=== PATIENT | male | born 1945 | race Caucasian/White ===

== ENCOUNTER 2022-11-05 10:20 | Observation (INO) | payer MEDICARE, OTHER, SELFPAY ==
[2022-11-05] VITALS (9 sets, daily range): BP systolic 100–118; BP diastolic 54–70; PULSE 68–90; RESP 15–20; TEMP 36.5–36.7; O2SAT 94–99; BMI 32.7
--- NOTE | ~2022-11-05 | XR_ITS ---
EXAMINATION: XR chest 1V portable INDICATION: Weakness and shortness of breath TECHNIQUE: Portable AP chest at 1123 hours COMPARISON: None available FINDINGS: There are airspace opacities of the lung bases and left midlung zone. No pleural effusion o r pneumothorax. The cardiomediastinal silhouette is normal. IMPRESSION: 1. Airspace opacities of the lung bases and left midlung zone, consistent with atelectasis versus pne umonia. Reviewed, dictated and finalized at location B. IMPRESSION: 1. Airspace opacities of the lung bases and left midlung zone, consistent with atelectasis versus pneumonia.
--- NOTE | 2022-11-05 10:50 | ECG_ITS ---
Measurements Intervals [place] Rate: 65 P: 56 [place]: 182 QRS: -18 QRSD: 110 T: -7 QT: 403 QTc: 421 Interpretive Statements SINUS RHYTHM NORMAL ECG NO PREVIOUS ECG AVAILABLE FOR COMPARISON Electronically Signed On 11-05-2022 13:53:25 CDT by Hi Diehl M.D.
--- NOTE | 2022-11-05 10:52 | ED.URI ---
HPI - URI/Sore Throat General Chief Complaint: Upper Respiratory Infection Stated Complaint: congestion/decreased energy Time Seen by Provider: 11/05/22 10:42 Source: patient Mode of arrival: ambulatory Limitations: no limitations History of Present Illness HPI Narrative: Patient is a 76 y/o male who presents to the ED with c/o URI sx's. Patient reports having upper respiratory symptoms for the last 6 days. He complains of productive cough, subjective fevers, chills, fatigue, congestion, rhinorrhea, mild sore throat, and dyspnea with exertion. He states anytime he moves around, he becomes short of breath. Denies history of previous cardiac or lung issues. He has had intermittent chest pain over the last week, but denies any currently. He has been taking NyQuil, Tylenol, and decongestants for his symptoms. Denies abdominal pain, N/V/D, BLE pain or edema. Patient is vaccinated for COVID and tested negative on Thursday via home test. Related Data Home Medications Medication Instructions Recorded Confirmed atorvastatin 80 mg tablet 80 mg PO HS 11/05/22 11/05/22 bupropion HCl 300 mg 24 hr tablet, 300 mg PO DAILY 11/05/22 11/05/22 extended release cetirizine 10 mg tablet 10 mg PO DAILY 11/05/22 11/05/22 cyclobenzaprine 10 mg tablet 10 mg PO TID PRN spasms 11/05/22 11/05/22 duloxetine 30 mg capsule,delayed 30 mg PO DAILY 11/05/22 11/05/22 release finasteride 5 mg tablet 5 mg PO DAILY 11/05/22 11/05/22 hydrochlorothiazide 25 mg tablet 25 mg PO DAILY 11/05/22 11/05/22 lisinopril 20 mg tablet 20 mg PO DAILY 11/05/22 11/05/22 tamsulosin 0.4 mg capsule 0.4 mg PO HS 11/05/22 11/05/22 trazodone 50 mg tablet 50 mg PO HS 11/05/22 11/05/22 Allergies Allergy/AdvReac Type Severity Reaction Status Date / Time No Known Allergies Allergy Verified 11/05/22 10:51 Review of Systems Review of Systems: CONSTITUTIONAL: See HPI. EYES: Denies visual changes, redness, or discharge. ENT: See HPI. CARDIOVASCULAR: See HPI. RESPIRATORY: See HPI. GASTROINTESTINAL: Denies abdominal pain, nausea, vomiting, or diarrhea. GENITOURINARY: Denies dysuria or hematuria. SKIN: Denies rash or itching. MUSCULOSKELETAL: Denies back pain, joint pain, or myalgia. NEUROLOGIC: Denies headache, numbness, or weakness. All systems reviewed & are unremarkable except as noted in HPI and below PMFSH Past Medical History Medical History Anxiety Benign prostatic hyperplasia Cerebrovascular accident (2010) Residual mild left-sided weakness. Diverticulitis Hypertension Large B-cell lymphoma Obstructive sleep apnea Skin cancer Surgical History Surgical History (Updated 11/05/22 @ 16:31 by Tricia Drew PA-C) No pertinent past surgical history Social History Social History Social History: Surrogate medical decision maker: Code status: Full code. Smoking packs per day: 1 Smoking cigarettes per day: 20.0 Smoking status: Former smoker Tobacco type: cigarettes Alcohol intake: former Substance use: never Lack of Transportation: No Lack of Food: Never True Current Housing: Decline to Answer Concerned About Future Housing: Decline to Answer Difficulty Paying Gas/Electric Bills: Decline to Answer Difficulty Paying for Meds: Decline to Answer Currently Unemployed: Decline to Answer Education: Decline to Answer Difficulty w/ Childcare or Family Care: Decline to Answer Additional living arrangements comments: Lives in [place]. Spiritual care concerns: No Exam Narrative: GENERAL: Elderly, obese, non-toxic, in no acute distress. HEAD: Normocephalic, atraumatic. ENT: MMs slightly dry. NECK: Supple. No adenopathy, no masses. RESPIRATORY: Airway patent, respirations nonlabored. Rhonchi throughout bilateral lung bases, worse on the left. Occasional wheezing. CARDIOVASCULAR: Regular rate and rhythm
[2022-11-05 11:06] LABS: Basophils Percent Auto 0.2 % (0.2-1.2); Eosinophils Percent Auto 0.9 % (0-4.4); Hematocrit 42.1 % (42.0-52.0); Hemoglobin 13.9 g/dL (14.0-18.0); Immature Granulocyte Absolute 0.01 K/mm3 (0.00-0.031); Immature Granulocyte Percent A 0.2 % (0-0.5); Lymphocytes Absolute Auto 0.94 K/mm3 (0.9-3.2); Lymphocytes Percent Auto 21.1 % (18.3-44.2); Mean Corpuscular Hemoglobin 30.5 pg (26-34); Mean Corpuscular Volume 92.3 fl (80-100); Monocytes Absolute Auto 0.5 K/mm3 (0.1-0.6); Monocytes Percent Auto 10.8 % (2.6-8.5); Neutrophils Percent Auto 66.8 % (45.5-73.1); Platelet Count Result 176 k/mm3 (150-375); Red Blood Count 4.56 M/mm3 (4.6-6.20); Red Cell Distribution Width 13.7 % (11.5-14.5); White Blood Count 4.5 K/mm3 (4.5-10.0)
[2022-11-05 11:10] LABS: Alanine Aminotransferase 44 U/L (6-50); Albumin Level 4.1 g/dL (3.5-5.1); Alkaline Phosphatase 83 U/L (38-126); Anion Gap 5 mmol/L (8-16); Aspartate Amino Transferase 49 U/L (17-59); Bilirubin,Total 0.8 mg/dL (0.2-1.3); Blood Urea Nitrogen 31 mg/dL (9-20); Calcium 8.6 mg/dL (8.4-10.2); Carbon Dioxide 31 mmol/L (22-30); Chloride 97 mmol/L (98-107); Estimated CRCL calculation 44 ml/min; Estimated Glomerular Filt Rate 49; Glucose 111 mg/dL (65-110); Potassium 4.1 mmol/L (3.4-5.0); Sodium 133 mmol/L (137-145)
[2022-11-05] MEDS: IPRATROPIUM BR 0.02% INH SOLN 0.5 MG/2.5 ML VIAL 1.5 MG INHALATION (11:14)
[2022-11-05] MEDS: LEVALBUTEROL NEB 1.25 MG/3 ML 2.5 MG INHALATION (11:14)
[2022-11-05 11:34] LABS: NT Pro B Type Natriuretic Pept 120 pg/mL (19.9-100); Troponin I < 0.012 ng/mL (0.000-0.034)
[2022-11-05 11:36] LABS: Influenza A QL RT-PCR Negative (Negative); Influenza B QL RT-PCR Negative (Negative); SARS-CoV-2 RNA PCR Negative
[2022-11-05] MEDS: SODIUM CHLORIDE 0.9% IV 1,000 ML 999 ML IV CONT (12:11)
--- NOTE | 2022-11-05 13:50 | PM.IMHP ---
H&P: HPI History of Present Illness Date/Time: 11/05/22 13:50 Chief Complaint: Upper respiratory symptoms. Narrative: This is a pleasant 76-year-old male with history of stroke, hypertension, and benign prostatic hyperplasia who presented to the emergency department from home for evaluation of upper respiratory symptoms. Patient provides the following history. He has not felt well for the past 6 days with symptoms to include weakness, subjective fever, chills, sinus congestion, runny nose, mild sore throat, and a cough productive of clear/yellow phlegm. His appetite has been poor for the last 1 week. A couple of days ago he had ?massive diarrhea? but that has since resolved. No vomiting. he took a COVID test on Thursday which was negative. He was afebrile on arrival to the emergency department with stable vital signs. He was negative for influenza and COVID. Chest x-ray showed airspace opacities of the lung bases and left mid lung zone consistent with atelectasis versus pneumonia. Pertinent labs include a WBC count of 4.5, D-dimer 0.50 sodium 133, potassium 4.1, BUN 31, creatinine 1.40, glucose 111, troponin less than 0.012, proBNP 120. Plans were for possible discharge home however when ambulated in the emergency department his SpO2 dropped into the upper 70s and he is being admitted in this setting. At the time my evaluation he is resting comfortably and has no specific complaints. He denies sick contacts, chest pain, pleuritic pain, resting shortness of breath, orthopnea, paroxysmal nocturnal dyspnea, and edema. Review of Systems Review of Systems: Twelve systems were reviewed and are negative except for as per HPI. [facility] Past Medical History Medical History Anxiety Benign prostatic hyperplasia Cerebrovascular accident (2009) Residual mild left-sided weakness. Diverticulitis Hypertension Large B-cell lymphoma Obstructive sleep apnea Does not use CPAP. Skin cancer Surgical History Surgical History No pertinent past surgical history Status post surgical removal of malignant neoplasm of skin Family History Family History Other Hypertension Social History Social History (Reviewed 11/07/22 @ 14:07 by JOCELYN Mac Social History: Surrogate medical decision maker: Miguelina Espinal, spouse. Code status: Full code. Smoking packs per day: 1 Smoking cigarettes per day: 20.0 Smoking status: Former smoker Tobacco type: cigarettes Alcohol intake: former Substance use: never Lack of Transportation: No Lack of Food: Never True Current Housing: Decline to Answer Concerned About Future Housing: Decline to Answer Difficulty Paying Gas/Electric Bills: Decline to Answer Difficulty Paying for Meds: Decline to Answer Currently Unemployed: Decline to Answer Education: Decline to Answer Difficulty w/ Childcare or Family Care: Decline to Answer Additional living arrangements comments: Lives in [place]. 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 Spiritual care concerns: No Meds Home Medications and Allergies Home Medications Medication Instructions Recorded Confirmed Type atorvastatin 80 mg tablet 80 mg PO HS 11/05/22 11/05/22 History cetirizine 10 mg tablet 10 mg PO DAILY 11/05/22 11/05/22 History cyclobenzaprine 10 mg tablet 10 mg PO TID PRN spasms 11/05/22 11/05/22 History duloxetine 30 mg capsule,delayed 30 mg PO DAILY 11/05/22 11/05/22 History release finasteride 5 mg tablet 5 mg PO DAILY 11/05/22 11/05/22 History hydrochlorothiazide 25 mg tablet 25 mg PO DAILY 11/05/22 11/05/22 History lisinopril 20 mg tablet 20 mg PO DAILY 11/05/22 11/05/22 History tamsulosin 0.4 mg capsule 0.4 mg PO HS 11/05/22 11/05/22 History trazodone 50 mg tablet 50 mg PO HS 11/05/22 11/05/22 History levof
--- NOTE | 2022-11-05 14:08 | ADMGEN ---
This patient, Zeeshan Espinal, was admitted to Medical Room 342-01. Patient/family oriented to hospital policies and general routines including ID bracelet, bed and alarms, visiting hours, pain management, procedures, bathroom and other care routines, personal items, smoking policy, room service/diet, and visiting hours. Information on how to activate the Rapid Response Team has been discussed. Patient/Family are encouraged to report perceived risks to care and to ask questions if they do not understand what they are told or what they should do.
[2022-11-05] MEDS: SODIUM CHLORIDE 0.9% IV 1,000 ML 100 ML IV CONT (21:35)
[2022-11-06] VITALS (14 sets, daily range): BP systolic 108–122; BP diastolic 51–58; PULSE 61–78; RESP 16–18; TEMP 36.5–37; O2SAT 94–97
[2022-11-06] MEDS: traZODone HCL 50 MG TABLET PO ×2 (00:08→20:36)
[2022-11-06 05:39] LABS: Hematocrit 35.2 % (42.0-52.0); Hemoglobin 11.8 g/dL (14.0-18.0); Mean Corpuscular HGB Conc 33.5 g/dl (32-36); Mean Corpuscular Hemoglobin 30.6 pg (26-34); Mean Corpuscular Volume 91.2 fl (80-100); Mean Platelet Volume 8.8 fl (7.4-10.4); Platelet Count Result 148 k/mm3 (150-375); Red Blood Count 3.86 M/mm3 (4.6-6.20); Red Cell Distribution Width 13.6 % (11.5-14.5); White Blood Count 4.6 K/mm3 (4.5-10.0)
[2022-11-06 05:55] LABS: Anion Gap 5 mmol/L (8-16); Blood Urea Nitrogen 28 mg/dL (9-20); Calcium 7.9 mg/dL (8.4-10.2); Carbon Dioxide 28 mmol/L (22-30); Chloride 101 mmol/L (98-107); Estimated CRCL calculation 47 ml/min; Estimated Glomerular Filt Rate 54; Glucose 95 mg/dL (65-110); Magnesium 1.8 mg/dL (1.6-2.3); Potassium 3.9 mmol/L (3.4-5.0); Sodium 134 mmol/L (137-145)
[2022-11-06] MEDS: ATORVASTATIN 40 MG TABLET PO (08:25)
[2022-11-06] MEDS: DULoxetine HCL 30 MG CAPSULE.DR 90 MG PO (08:25)
[2022-11-06] MEDS: ENOXAPARIN 40 MG/0.4 ML SYRINGE SUB-Q (08:25)
[2022-11-06] MEDS: LORATADINE 10 MG TABLET PO (08:26)
[2022-11-06] MEDS: FINASTERIDE 5 MG TABLET PO (08:26)
--- NOTE | 2022-11-06 13:40 | PM.IMPN ---
Progress Note: A&P Assessment and Plan (1) Acute respiratory failure with hypoxia: Code(s): J96.01 - Acute respiratory failure with hypoxia Status: Acute Assessment and Plan: Patient's SpO2 reportedly dropped into the upper 70s when ambulating in the ED. Presumably due to pneumonia due to c/o subjective fevers, cough, chest congestion, FRANKLIN, upper respiratory symptoms. Pulmonary embolism less likely given above complaints and Well's score 0. Wean oxygen as tolerated. (2) Pneumonia: Qualifiers: Laterality: bilateral Lung location: lower lobe of lung Pneumonia type: due to unspecified organism Qualified Code(s): J18.9 - Pneumonia, unspecified organism Code(s): J18.9 - Pneumonia, unspecified organism Status: Acute Assessment and Plan: Chest x-ray concerning for bilateral airspace opacities and patient with hypoxia noted with ambulation. May be viral pneumonia given c/o FRANKLIN, sore throat, nasal congestion and loose stool. However, given symptom severity, patient started on azithromycin and ceftriaxone IV in the ED. Sputum culture ordered and pending. urinary antigens pending. Started scheduled bronchodilators. Influenza A/B, COVID19 and RSV negative. (3) Renal insufficiency: Code(s): N28.9 - Disorder of kidney and ureter, unspecified Status: Acute Assessment and Plan: Likely acute kidney injury, may be acute on chronic renal disease, but unknown baseline. Patient thinks his creatinine may be 1.2. BUN 31, creatinine 1.4, GFR 49 on admission. Physical exam concerning for dehydration on admission and he reported not eating very well the last 5 days prior to admission. Treated with IV fluids overnight. Repeat renal function with improving BUN, creatinine and GFR. Unknown baseline. Trend chemistry (4) Hypertension: Code(s): I10 - Essential (primary) hypertension Status: Chronic Assessment and Plan: Blood pressure 100-114/56. Hold lisinopril and hydrochlorothiazide for now due to dehydration. Resume when SBP>130 (5) Benign prostatic hyperplasia: Code(s): N40.0 - Benign prostatic hyperplasia without lower urinary tract symptoms Status: Chronic Assessment and Plan: Continue tamsulosin and finasteride, bladder scan PRN. No lower urinary complaints at this time and renal function improved with IV fluids. Plan CODE STATUS: FULL CODE Disposition: from home. Discharge when respiratory symptoms improved. Time Spent With Patient Time: 25 minutes time spent with patient assessment, patient education, review of labs, vitals and nursing documentation. All questions answered to the best of my ability. Subjective Date/time seen: 11/06/22 13:40 Interval history: He has some shortness of breath with activity, c/o FRANKLIN and has some chest congestion. He denies chest pain. He reports his grandson has been sick in the past week and he was caring for him prior to this. He reports cough without sputum. No palpitations, dizziness or GI upset. Review of Systems Review of Systems: All systems reviewed & are unremarkable except as noted in HPI and below Exam Narrative: General: tired-appearing older adult male lying in bed. No acute distress. HEENT: Normocephalic. PERRL, EOMI. Sclera anicteric. moist mucous membranes. Neck: Supple. No JVD. Respiratory: Respirations are nonlabored and he is speaking in full sentences. Scattered rhonchi with faint expiratory wheezing bibasilar lobes. Nonproductive cough. Cardiovascular: Regular rate and rhythm with S1-S2. No murmurs, gallops or rubs. Gastrointestinal: Abdomen is soft, nontender, and nondistended with positive bowel sounds. Skin: Warm and dry. No rash or lesions. Fair complexion. Extremities: No cyanosis, clubbing, or edema. Radial and pedal pulses +2 bilaterally. Neurological: Alert and oriented x4. Cranial nerves 2-12 are grossly intact. No gross focal deficits. Psychiatri
[2022-11-06] MEDS: LEVALBUTEROL NEB 1.25 MG/3 ML INHALATION ×2 (14:03→20:52)
[2022-11-06] MEDS: IPRATROPIUM BR 0.02% INH SOLN 0.5 MG/2.5 ML VIAL INHALATION ×2 (14:03→20:52)
[2022-11-06 15:31] LABS: RSV RNA, RT-PCR Negative (Negative)
[2022-11-06] MEDS: TAMSULOSIN HCL 0.4 MG CAPSULE PO (20:36)
--- NOTE | 2022-11-06 20:57 | PCRCNOTE ---
patient stated that he no longer uses his bipap unit at home post stroke due to the inability to find a mask that fits without leaking.
[2022-11-07] VITALS (9 sets, daily range): BP systolic 126–127; BP diastolic 64–67; PULSE 59–74; RESP 16–20; TEMP 36.3–36.6; O2SAT 91–97
[2022-11-07] MEDS: IPRATROPIUM BR 0.02% INH SOLN 0.5 MG/2.5 ML VIAL INHALATION ×2 (02:51→07:24)
[2022-11-07] MEDS: LEVALBUTEROL NEB 1.25 MG/3 ML INHALATION ×2 (02:51→07:24)
[2022-11-07 06:34] LABS: Basophils Percent Auto 0.3 % (0.2-1.2); Eosinophils Absolute Auto 0.1 K/mm3 (0-0.3); Eosinophils Percent Auto 2.7 % (0-4.4); Hematocrit 36.4 % (42.0-52.0); Hemoglobin 12.2 g/dL (14.0-18.0); Immature Granulocyte Absolute 0.01 K/mm3 (0.00-0.031); Immature Granulocyte Percent A 0.3 % (0-0.5); Lymphocytes Absolute Auto 1.51 K/mm3 (0.9-3.2); Lymphocytes Percent Auto 41.1 % (18.3-44.2); Mean Corpuscular HGB Conc 33.5 g/dl (32-36); Mean Corpuscular Hemoglobin 30.4 pg (26-34); Mean Corpuscular Volume 90.8 fl (80-100); Mean Platelet Volume 9.2 fl (7.4-10.4); Monocytes Absolute Auto 0.3 K/mm3 (0.1-0.6); Monocytes Percent Auto 8.7 % (2.6-8.5); Neutrophils Absolute Auto 1.7 K/mm3 (1.3-6.7); Neutrophils Percent Auto 46.9 % (45.5-73.1); Platelet Count Result 162 k/mm3 (150-375); Red Blood Count 4.01 M/mm3 (4.6-6.20); Red Cell Distribution Width 13.5 % (11.5-14.5); White Blood Count 3.7 K/mm3 (4.5-10.0)
[2022-11-07 06:42] LABS: Anion Gap 4 mmol/L (8-16); Blood Urea Nitrogen 19 mg/dL (9-20); Calcium 8.3 mg/dL (8.4-10.2); Carbon Dioxide 31 mmol/L (22-30); Chloride 101 mmol/L (98-107); Estimated CRCL calculation 55 ml/min; Estimated Glomerular Filt Rate > 60; Glucose 103 mg/dL (65-110); Sodium 136 mmol/L (137-145)
[2022-11-07] MEDS: ENOXAPARIN 40 MG/0.4 ML SYRINGE SUB-Q (08:46)
[2022-11-07] MEDS: DULoxetine HCL 30 MG CAPSULE.DR 90 MG PO (08:46)
[2022-11-07] MEDS: levoFLOXacin 750 MG TABLET PO (09:32)
--- NOTE | 2022-11-07 16:59 | PM.DS ---
DS: Admitting Diagnosis Discharge Date 11/07/22 Admitting Diagnosis Acute respiratory failure with hypoxia Pneumonia, unspecified organism Renal insufficiency Essential (primary) hypertension Benign prostatic hyperplasia DS: Discharge Diagnosis Discharge Diagnosis (1) Acute respiratory failure with hypoxia: Code(s): J96.01 - Acute respiratory failure with hypoxia Status: Acute Assessment and Plan: Patient's SpO2 reportedly dropped into the upper 70s when ambulating in the ED. Presumably due to pneumonia. Pulmonary embolism less likely. Wean oxygen as tolerated. Patient weaned to room air with stable SpO2 at rest and with ambulation on discharge. No hemoptysis, lower extremity edema erythema or calf pain. Symptoms improved with antibiotics. (2) Pneumonia: Qualifiers: Laterality: bilateral Lung location: lower lobe of lung Pneumonia type: due to unspecified organism Qualified Code(s): J18.9 - Pneumonia, unspecified organism Code(s): J18.9 - Pneumonia, unspecified organism Status: Acute Assessment and Plan: He has been started on azithromycin 500 mg IV Q 24 hours and ceftriaxone 1 g IV Q 24 hours on admission. Sputum culture obtained but with mixed perez. urinary antigens drawn and pending. Treated with scheduled DuoNebs q.6 hours. Weaned to room air prior to discharge and dyspnea on exertion improved. Transitioned to oral Levaquin 750 mg p.o. daily x4 more days, for a total 7 day antibiotic course. (3) Renal insufficiency: Code(s): N28.9 - Disorder of kidney and ureter, unspecified Status: Acute Assessment and Plan: Patient thinks his baseline creatinine is 1.20. He appeared dry on admission exam and by labs and he admits he has not been eating very well the last 5 days or so. Renal function improved with IV hydration. BUN 19, creatinine 1.1, GFR greater than 60 at discharge. (4) Hypertension: Code(s): I10 - Essential (primary) hypertension Status: Chronic Assessment and Plan: Blood pressures were reviewed and they are stable. Blood pressure is improved and patient resumed on lisinopril and hydrochlorothiazide at home doses. (5) Benign prostatic hyperplasia: Qualifiers: Lower urinary tract symptom presence: symptoms absent Qualified Code(s): N40.0 - Benign prostatic hyperplasia without lower urinary tract symptoms Code(s): N40.0 - Benign prostatic hyperplasia without lower urinary tract symptoms Status: Chronic Assessment and Plan: Continue tamsulosin and finasteride. DS: Summary Hospital Course Reason for hospitalization: Upper respiratory symptoms Hospital Course: Patient is a 76-year-old male with history of stroke, hypertension, BPH, and large B-cell lymphoma. He presented to the emergency department with complaints of upper respiratory symptoms including subjective fevers, chills, sinus congestion, runny nose, mild sore throat, productive cough with clear/yellow phlegm, weakness, poor appetite and ?massive diarrhea? for approximately 6 days prior to admission. Home COVID test was negative. Upon arrival to the ED, vitals were stable and he was afebrile. COVID-19 in and influenza a/B were negative. Chest x-ray showed airspace opacities of the lung bases and left midlung zone consistent with atelectasis versus pneumonia. Patient was noted to have a WBC count of 4.5, D-dimer 0.5 which is not elevated when adjusted for age, sodium 133, potassium 4.1, BUN 31, creatinine 1.4, glucose 111, troponin less than 0.012, and proBNP 120. Appy patient was to be discharged home from the ED however upon ambulating he was noted to have SpO2 dropped to the upper 70s on room air and therefore was admitted for further management of pneumonia. He was admitted to the medical unit and treated with overnight IV hydration, IV Rocephin 1 g Q 24 hours, azithromycin IV 500 mg Q 24 hours. As scheduled DuoNebs q.6 hours
[2022-11-08 13:19] LABS: Pneumococcal Antigen Urine Not Detected (Not Detected)
[2022-11-08 20:39] LABS: Mycoplasma IgM Antibody Titer 28 U/mL (<770)
[2022-11-10 06:37] LABS: Legionella pneumophila Ag Ur Not Detected (Not Detected)
== END 2022-11-07 12:50 | disposition home or self-care (01) ==
LOC: ANHED 13:11 → ANH3MED 11-06 11:26
PROVIDERS: Nurse Practitioner Family; Physician Assistant; Admitting Provider Family Medicine; Emergency Provider Physician Assistant; Visit Provider Internal Medicine
DX: J96.01 Acute respiratory failure with hypoxia (principal); J18.9 Pneumonia, unspecified organism; N28.9 Disorder of kidney and ureter, unspecified; I10 Essential (primary) hypertension; N40.0 Benign prostatic hyperplasia without lower urinary tract symptoms; R05.9 Cough, unspecified; R06.09 Other forms of dyspnea; R50.9 Fever, unspecified; J34.89 Other specified disorders of nose and nasal sinuses; J02.9 Acute pharyngitis, unspecified; Z20.822 Contact with and (suspected) exposure to COVID-19; R79.89 Other specified abnormal findings of blood chemistry; F41.9 Anxiety disorder, unspecified; G47.33 Obstructive sleep apnea (adult) (pediatric); I69.354 Hemiplegia and hemiparesis following cerebral infarction affecting left non-dominant side; Z85.72 Personal history of non-Hodgkin lymphomas; Z87.891 Personal history of nicotine dependence; Z79.899 Other long term (current) drug therapy
CPT/HCPCS: 36415; 71045; 80048; 80053; 83735; 83880; 84484; 85025; 85027; 85380; 86738; 87070; 87205; 87449; 87634; 87636; 87899; 93005; 94640; 96361; 96365; 96366; 96372; 96375; 99285; A9270; G0378; J0456; J0696; J1650; J7030

== ENCOUNTER 2023-10-17 19:18 | Emergency (ER) | payer MEDICARE, OTHER, SELFPAY ==
--- NOTE | ~2023-10-17 | XR_ITS ---
EXAMINATION: XR chest 2V Exam Date/Time: 10/17/2023 20:13 CDT HISTORY: dizziness Comparison: 11/05/2022. RESULT: Lines, tubes, and devices: None. Lungs and pleura: Senescent change. Linear scar/atelectasis in the left lung base. No focal consolid ation, pleural effusion, or pneumothorax. Cardiomediastinal silhouette: Stable. Other: No acute osseous or upper abdominal finding. IMPRESSION: No acute cardiopulmonary process. Reviewed, dictated and finalized at location K.
--- NOTE | ~2023-10-17 | CT_ITS ---
EXAMINATION: CT brain wo con DATE: 10/17/2023 21:01 INDICATION: headache, hx of hemorrhagic cva in 2009 . TECHNIQUE: Computed tomography (CT) of the head was performed without intravenous contrast. The mA wa s adjusted according to patient size. Iterative reconstruction technique was employed. The dose-lengt h product was 757.00 mGy-cm. COMPARISON: None. FINDINGS: No acute intracranial hemorrhage or extra-axial fluid collection. No hydrocephalus, mass, or herniation. No acute ischemic infarct. Unremarkable dural venous sinus attenuation. No acute osseous abnormality. The aerated spaces are clear. Old bilateral basal ganglia lacunar infarcts. Atherosclerotic intracranial calcifications. Mild chron ic white matter change. IMPRESSION: No acute intracranial process. Reviewed, dictated and finalized at location K.
[2023-10-17 19:39] VITALS: BP 143/71; PULSE 53; RESP 16; TEMP 36.3; O2SAT 100
--- NOTE | 2023-10-17 19:50 | ECG_ITS ---
Measurements Intervals [place] Rate: 55 P: 33 PA: 209 QRS: -15 QRSD: 117 T: 11 QT: 423 QTc: 405 Interpretive Statements SINUS BRADYCARDIA WITH FIRST DEGREE AV BLOCK INTRAVENTRICULAR CONDUCTION DELAY DELAYED PRECORDIAL R/S TRANSITION BORDERLINE ECG COMPARED TO ECG 11/05/2022 11:20:57 SINUS BRADYCARDIA NOW PRESENT INTRAVENTRICULAR CONDUCTION DELAY NOW PRESENT Electronically Signed On 10-17-2023 21:26:35 CDT by Aly Lai D.O.
[2023-10-17 20:06] LABS: Basophils Percent Auto 0.7 % (0.2-1.2); Eosinophils Absolute Auto 0.1 K/mm3 (0-0.3); Eosinophils Percent Auto 2.2 % (0-4.4); Hematocrit 39.9 % (42.0-52.0); Hemoglobin 13.5 g/dL (14.0-18.0); Immature Granulocyte Absolute 0.02 K/mm3 (0.00-0.031); Immature Granulocyte Percent A 0.4 % (0-0.5); Lymphocytes Absolute Auto 1.78 K/mm3 (0.9-3.2); Lymphocytes Percent Auto 33.3 % (18.3-44.2); Mean Corpuscular HGB Conc 33.8 g/dl (32-36); Mean Corpuscular Hemoglobin 30.3 pg (26-34); Mean Corpuscular Volume 89.7 fl (80-100); Mean Platelet Volume 8.6 fl (7.4-10.4); Monocytes Absolute Auto 0.5 K/mm3 (0.1-0.6); Monocytes Percent Auto 8.6 % (2.6-8.5); Neutrophils Absolute Auto 2.9 K/mm3 (1.3-6.7); Neutrophils Percent Auto 54.8 % (45.5-73.1); Platelet Count Result 217 k/mm3 (150-375); Red Blood Count 4.45 M/mm3 (4.6-6.20); White Blood Count 5.4 K/mm3 (4.5-10.0)
[2023-10-17 20:17] LABS: Alanine Aminotransferase 32 U/L (6-50); Albumin Level 4.2 g/dL (3.5-5.1); Alkaline Phosphatase 78 U/L (38-126); Anion Gap 6 mmol/L (8-16); Aspartate Amino Transferase 36 U/L (17-59); Bilirubin,Total 0.8 mg/dL (0.2-1.3); Blood Urea Nitrogen 16 mg/dL (9-20); Calcium 9.2 mg/dL (8.4-10.2); Carbon Dioxide 30 mmol/L (22-30); Chloride 92 mmol/L (98-107); Estimated CRCL calculation 66 ml/min; Estimated Glomerular Filt Rate > 60; Glucose 89 mg/dL (65-110); Lipase 83 U/L (23-300); Potassium 3.9 mmol/L (3.4-5.0); Sodium 128 mmol/L (137-145)
[2023-10-17 20:20] LABS: INR 0.9; Prothrombin Time 12.6 Seconds (11.1-14.7)
[2023-10-17 20:21] LABS: Partial Thromboplastin Time 25.5 Seconds (22.3-36.8)
[2023-10-17 20:29] LABS: Troponin I < 0.012 ng/mL (0.000-0.034)
--- NOTE | 2023-10-17 22:31 | ECG_ITS ---
Measurements Intervals [place] Rate: 61 P: 56 [place]: 214 QRS: -19 QRSD: 105 T: 8 QT: 405 QTc: 411 Interpretive Statements SINUS RHYTHM WITH FIRST DEGREE AV BLOCK DELAYED PRECORDIAL R/S TRANSITION BASELINE ARTIFACT- I, II, III, AVR, AVL BORDERLINE ECG COMPARED TO ECG 10/17/2023 19:54:36 SINUS RHYTHM NOW PRESENT Electronically Signed On 10-18-2023 7:58:09 CDT by Aly Lai D.O.
[2023-10-17 22:41] VITALS: PULSE 64
[2023-10-17 22:45] VITALS: O2SAT 100
--- NOTE | 2023-10-17 23:22 | ED.GENADULT ---
HPI - General Adult General Chief complaint: Unspecified Stated complaint: PRESSURE IN HEAD/HEADACHE Time Seen by Provider: 10/17/23 23:05 History of Present Illness HPI narrative: patient is a 77-year-old gentleman who presents emergency department with chief complaint of headache. The patient reports that around 5:00 p.m. he started having headache described as pressure sensation reports that he felt dizzy the patient states the dizziness was more of a pressure sensation in his head denies rotational symptoms denies being off balance patient states that he was concerned as he has had a prior hemorrhagic stroke about 14 years ago the stroke left him with some weakness on the left side. Related Data Home Medications Medication Instructions Recorded Confirmed atorvastatin 80 mg tablet 80 mg PO HS 11/05/22 11/05/22 cetirizine 10 mg tablet 10 mg PO DAILY 11/05/22 11/05/22 cyclobenzaprine 10 mg tablet 10 mg PO TID PRN spasms 11/05/22 11/05/22 duloxetine 30 mg capsule,delayed 30 mg PO DAILY 11/05/22 11/05/22 release finasteride 5 mg tablet 5 mg PO DAILY 11/05/22 11/05/22 hydrochlorothiazide 25 mg tablet 25 mg PO DAILY 11/05/22 11/05/22 lisinopril 20 mg tablet 20 mg PO DAILY 11/05/22 11/05/22 tamsulosin 0.4 mg capsule 0.4 mg PO HS 11/05/22 11/05/22 trazodone 50 mg tablet 50 mg PO HS 11/05/22 11/05/22 Allergies Allergy/AdvReac Type Severity Reaction Status Date / Time No Known Allergies Allergy Verified 11/05/22 10:51 Review of Systems Review of Systems: A 10 system review of systems was completed on the patient and is negative except for what is stated in the HPI. Nursing and ancillary documentation was reviewed. [facility] Past Medical History Medical History Anxiety Benign prostatic hyperplasia Cerebrovascular accident (2009) Residual mild left-sided weakness. Diverticulitis Hypertension Large B-cell lymphoma Obstructive sleep apnea Does not use CPAP. Skin cancer Surgical History Surgical History No pertinent past surgical history Status post surgical removal of malignant neoplasm of skin Family History Family History Other Hypertension Social History Social History Social History: Surrogate medical decision maker: Miguelina Espinal, spouse. Code status: Full code. Smoking packs per day: 1 Smoking cigarettes per day: 20.0 Smoking status: Former smoker Tobacco type: cigarettes Alcohol intake: former Substance use: never Lack of Transportation: No Lack of Food: Never True Current Housing: Decline to Answer Concerned About Future Housing: Decline to Answer Difficulty Paying Gas/Electric Bills: Decline to Answer Difficulty Paying for Meds: Decline to Answer Currently Unemployed: Decline to Answer Education: Decline to Answer Difficulty w/ Childcare or Family Care: Decline to Answer Additional living arrangements comments: Lives in [place]. 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 Spiritual care concerns: No Exam Narrative: GENERAL: Well-appearing, well-nourished, and in no acute distress. HEAD: Normocephalic, atraumatic. EYES: PERRLA and EOMI. ENT: Nares clear, no rhinorrhea or epistaxis. Mucous membranes moist. NECK: Supple. CHEST: Clear to auscultation. No respiratory distress. HEART: Regular rate and rhythm. No murmur heard. Normal peripheral pulses. ABDOMEN: Soft, nontender, nondistended, normal active bowel sounds. EXTREMITIES: Normal range of motion. No edema. SKIN: Warm, dry, no rash. NEURO: No focal deficits. Alert and oriented x3. Has mild weakness in the left upper extremity and left lower extremity this is baseline PSYCH: Normal mood and affect. Course Vital Signs
[2023-10-17 23:41] LABS: Troponin I < 0.012 ng/mL (0.000-0.034)
[2023-10-18 00:33] VITALS: BP 142/86; PULSE 67; RESP 15; TEMP 36.7; O2SAT 97
== END 2023-10-18 00:33 | disposition home or self-care (01) ==
PROVIDERS: Emergency Provider Emergency Medicine
DX: R51.9 Headache, unspecified (principal); E87.1 Hypo-osmolality and hyponatremia; N40.0 Benign prostatic hyperplasia without lower urinary tract symptoms; I69.951 Hemiplegia and hemiparesis following unspecified cerebrovascular disease affecting right dominant side; I10 Essential (primary) hypertension; G47.33 Obstructive sleep apnea (adult) (pediatric); F41.9 Anxiety disorder, unspecified; Z85.828 Personal history of other malignant neoplasm of skin; Z85.72 Personal history of non-Hodgkin lymphomas; Z87.891 Personal history of nicotine dependence; R00.1 Bradycardia, unspecified; I45.9 Conduction disorder, unspecified; I44.0 Atrioventricular block, first degree
CPT/HCPCS: 36415; 70450; 71046; 80053; 83690; 84484; 85025; 85610; 85730; 93005; 99284

== ENCOUNTER 2025-03-17 16:20 | Emergency (ER) | payer MEDICARE, OTHER, SELFPAY ==
--- OUTSIDE RECORDS SUMMARY | 2025-03-17 16:22 | XMS_ITS | Patient Health Record ---
Author Organization [facility] Address [address] [place] [address] Care Team Providers Care Outside Sales Consultant Name Role Phone Dr Noah Guidry Primary Care Provider Unavail able Negro Freeman Unavailable [phone] Dr Ritesh mR Unavailable Unavailabl e ALLERGIES No Known Allergies REASON FOR REFERRAL No Information MEDICATIONS Medication SIG (Take, Route, Frequency, Duration) Notes Start Date End Date Status fluticasone 50 mcg/inh 2 puff(s) inhaled qd Active cyclobenzaprine 10 mg 1 tab(s) orally 3 times a day Active temazepam 7.5 mg 1 cap(s) orally once a day (at bedtime) Active aspirin 81 mg 1 tab(s) chewed once a day for 30 day(s) Active neomycin/polymyxin B/pramoxi ne topical 3.5 mg-93112 units-10 mg/g 3 drops applied topically 2 times a day Active psyllium 3.4 g/7 g as directed orally once a day Active DULoxetine 60 mg 1 cap(s) orally once a day for 30 day(s) Active fluorouracil topical 5% 1 miquel applied topically 2 times a day for 30 day(s) Active buPROPion 300 mg/24 hours 1 tab(s) orall y every 24 hours for 30 day(s) Active ammonium lactate topical 12% 1 miquel appli ed topically 2 times a day Active atorvastatin 10 mg 1 tab(s) orally once a day for 30 day(s) Active lisinopril 10 mg 1 tab(s) orally once a day for 30 day(s) Active tamsulosin 0.4 mg 1 cap(s) orally once a day for 30 day(s) Active hydroCHLOROthiazide 25 mg 1 tab(s) orall y once a day for 30 day(s) Active finasteride 5 mg 1 tab(s) orally once a day for 30 day(s) Active IMMUNIZATIONS Vaccine Route Administration Date Status Comme nts Pneumococcal Unknown 09/15/2018 Administered verified 7 .26.21 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 Yes How often did you have a dri nk containing alcohol in the past year? Two to four times a month (2 points) How many drinks did you have on a typical day when you were drinking in the past year? 1 or 2 (0 points) How often did you hav six or more drinks on one occasion in the past year? Never (0 points) Points 2 Interpretation Negative Smoking Question Answer Notes Are you a: former smoker When did you stop smoking? 02/19/1973 How long has it been since you last smoked? > 10 years When did you start smoking? 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 (Z79.01) Active confirmed Long-term current use of anticoagulant (443760153) Problem Personal history of other malignant neoplasm of skin (Z85.828) Active confirmed History of malignant neoplasm of skin (005431237) Problem Basal cell carcinoma of skin of other parts of face (C44.319) Active confirmed Basal cell carcinoma of face (017256330) BCC, L buccal area medial Problem History of Anxiety (Z86.59) Active confirmed History of psychiatric disorder (036387978) PLAN OF TREATMENT No Information Insurance Providers Payer Name Payer Address Payer Phone Subscriber Number Group Number Insured Name Patient Relationship to Insured Coverage Start Date Coverage End Date [employer] [address] [place] [address] [phone] [id number] Zeeshan Espinal Self - patient is the insured MEDICAL (GENERAL) HISTORY Medical History History ICD Code Blood thinners Yes Coumadin, Warfarin or Jantoven No Is INR checked regularly NA Is INR usually within normal range NA plavix No aspirin Yes Oral Pre-Operative Antibiotic Protocol N o High Blood pressure Yes Is it controlled Yes Jail Facility No HTN ENLARGED LYMPH NODES ANXIETY DEPRESSION HISTORY OF STROKE History of UV or X-Ray Treatments Yes History of arsenic exposure No History of immunosuppression No Organ Transplant recipient No History of BCC Yes History of SCC Yes History of melanoma Yes family History of Melanoma No Family History of Basal cell carcinoma N o Family History of squamous cell carcinom a No Surgical History Surgery Date(Month/Year) mohs for melanoma on the rig ht ear by Dr. 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
[2025-03-17 16:35] VITALS: BP 125/58; PULSE 82; RESP 16; TEMP 36.6; O2SAT 98
--- NOTE | 2025-03-17 16:42 | ED.FALL ---
HPI - Fall General Chief Complaint: Fall Stated Complaint: fall Time Seen by Provider: 03/17/25 16:42 Source: patient Mode of arrival: ambulatory Limitations: no limitations History of Present Illness HPI Narrative: 79 y/o male with hx CVA presented for c/o fall outside at home. Says he struck his head on the gravel when he was knocked to the ground while He was attempting to move equipment. Says the 6 foot spring loaded gate did not slowly close properly, resulting in him knocked him to the ground. Endorses a head laceration and left rain abrasions. Says he fell landing onto the right arm/shoulder but denies any pain. Denies LOC. The head wound was cleansed at home, family denies seeing any FB. Pt had tetanus updated 3 weeks ago with pcp. Pt currently denies any headache, dizziness, nausea, neck pain, or joint pain. Related Data Home Medications ?Medication ?Instructions ?Recorded ?Confirmed ?Last Taken ?Type atorvastatin 80 mg tablet 80 mg PO HS 11/05/22 11/05/22 Unknown History cetirizine 10 mg tablet 10 mg PO DAILY 11/05/22 11/05/22 Unknown History cyclobenzaprine 10 mg tablet 10 mg PO TID PRN spasms 11/05/22 11/05/22 Unknown History duloxetine 30 mg capsule,delayed 30 mg PO DAILY 11/05/22 11/05/22 Unknown History release finasteride 5 mg tablet 5 mg PO DAILY 11/05/22 11/05/22 Unknown History hydrochlorothiazide 25 mg tablet 25 mg PO DAILY 11/05/22 11/05/22 Unknown History lisinopril 20 mg tablet 20 mg PO DAILY 11/05/22 11/05/22 Unknown History tamsulosin 0.4 mg capsule 0.4 mg PO HS 11/05/22 11/05/22 Unknown History trazodone 50 mg tablet 50 mg PO HS 11/05/22 11/05/22 Unknown History aspirin 325 mg capsule 325 mg PO DAILY 03/17/25 03/17/25 Unknown History Allergies Allergy/AdvReac Type Severity Reaction Status Date / Time No Known Allergies Allergy Verified 11/05/22 10:51 Review of Systems Review of Systems: CONSTITUTIONAL: Denies body aches, fever, chills, or sweats. EYES: Denies visual changes ENT: Denies epistaxis CARDIOVASCULAR: Denies chest pain, palpitations, or edema. RESPIRATORY: Denies cough or dyspnea. GASTROINTESTINAL: Denies abdominal pain, nausea, vomiting, or diarrhea. SKIN: Reports scalp laceration, left rain abrasions MUSCULOSKELETAL: Denies back pain, joint pain, neck pain NEUROLOGIC: Denies headache, numbness, tingling, or weakness. All systems reviewed & are unremarkable except as noted in HPI and below PMFSH Past Medical History Medical History Anxiety Benign prostatic hyperplasia Cerebrovascular accident (2010) Residual mild left-sided weakness. Diverticulitis Hypertension Large B-cell lymphoma Obstructive sleep apnea Does not use CPAP. Skin cancer Surgical History Surgical History No pertinent past surgical history Status post surgical removal of malignant neoplasm of skin Family History Family History Other Hypertension Social History Social History Social History: Surrogate medical decision maker: Miguelina Espinal, spouse. Code status: Full code. Smoking packs per day: 1 Smoking cigarettes per day: 20.0 Smoking status: Former smoker Tobacco type: cigarettes Alcohol intake: former Substance use: never Lack of Transportation: No Lack of Food: Never True Current Housing: Decline to Answer Concerned About Future Housing: Decline to Answer Difficulty Paying Gas/Electric Bills: Decline to Answer Difficulty Paying for Meds: Decline to Answer Currently Unemployed: Decline to Answer Education: Decline to Answer Difficulty w/ Childcare or Family Care: Decline to Answer Additional living arrangements comments: Lives in [place]. 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 Spiritual care concerns: No Comments At time of signature, I have reviewed and agree with nursing past medical, surgical, social and family history unless otherwise noted. Please see nursing chart for further information. There is no relevant family history pertinent to the presenting complaint Exam Narrative: GENERAL: Well-appearing, and in no acute distress. HEAD: Right parietal scalp laceration 2.5cm, irregular with active bleeding. EYES: EOMI. ENT: Mucous membranes pink and moist. NECK: Normal AROM. Supple.No VPT CHEST: No respiratory distress. Clear to auscultation. HEART: Regular rate and rhythm. MUSCULOSKELETAL: No bony tenderness EXTREMITIES: Normal/baseline range of motion; left ankle brace. No edema. SKIN: Warm, dry, Left rain with abrasions and superficial avulsions, scant bleeding NEURO: No focal deficits. Alert and oriented x3. Gait unsteady; uses rollator. PSYCH: Normal affect. Course Course Emergency Course: Patient is aware of diagnosis, understands and agrees to treatment plan. Anticipatory guidance given. Patient agrees to follow-up as directed and is aware of reasons to seek care at the emergency department. Portions of this record may have been created with voice recognition software Level of Care: Express Care Visit Vital Signs Vital signs: Vital Signs Temperature 98 F 03/17/25 16:35 Pulse Rate 82 03/17/25 16:35 Respiratory Rate 16 03/17/25 16:35 Blood Pressure 125/58 L 03/17/25 16:35 Pulse Oximetry 98 03/17/25 16:35 Oxygen Delivery Room Air 03/17/25 16:35 Temperature 98 F 03/17/25 16:35 Pulse Rate 82 03/17/25 16:35 Respiratory Rate 16 03/17/25 16:35 Blood Pressure 125/58 L 03/17/25 16:35 Pulse Oximetry 98 03/17/25 16:35 Oxygen Delivery Room Air 03/17/25 16:35 Procedures Laceration scalp: Size (cm): 2.5 Description: irregular and clean Depth: simple, single layer Pre-repair: irrigated (cleansed with skintegrity and sterile water) ====== Skin Level ====== Skin layer closed with: antwon (2) ====== Subcutaneous Layer ====== ====== Muscle Layer ====== ====== Tendon Layer ====== Dressing: The procedure and its alternatives were reviewed with patient. Risks were reviewed with patient including infection and damage to nearby structures. Patient provided verbal informed consent. The patient was positioned appropriately. Wound was explored for abnormalities including infection and foreign bodies. #2 antwon placed with wound edges approximated. Patient tolerated well, no complications. MDM - Fall MDM Narrative Medical decision making narrative: Discussed physical exam findings. Patient tolerated 2 antwon placed to the right scalp. Patient declined dressing to the left leg skin abrasions. Discussed at length the risk of possible head injury due to the mechanism of fall and patient is on an aspirin. is aware and says she will closely monitor. Declines ER transfer at this time. Advised supportive measures and signs/symptoms to go to the ER. Pt is appropriate for outpt treatment and f/u. Patient reported tetanus updated 2 weeks ago with PCP. Differential Diagnosis Differential diagnosis: Likely other (Laceration, abrasion, avulsion, contusion, subdural hematoma, subarachnoid hemorrhage) Discharge Plan Discharge Clinical Impression: Laceration of scalp, Abrasion of left leg Patient Disposition: Home Condition: Stable Instructions: Antibiotic Form, Head Laceration (ED) Additional Instructions: scalp: Your antwon need to be removed in 7-10 days. You can return to the clinic or follow up with your pcp. After 24 hours you may gently wash as normal with soap and water. Do NOT wash with peroxide or alcohol. Take tylenol for pain You are aware of the risk of a brain injury due to your fall, and taking aspirin. Monitor closely for any headache, dizziness, nausea, vomiting, confusion, or vision changes. Go to the ER immediately for any worsening symptoms or concerns. leg: Keep the area clean and dry - cleanse with warm water and mild soap and allow to fully dry. Ok to apply neosporin to the site Keep it open to air after 24 hours Watch for worsening symptoms including pain, redness, swelling, streaking, pus/drainage, fever. Go to the ER with any of these symptoms or concerns. Follow-up with your primary care provider in 3 days. Patient Language: Greenlandic Prescriptions: No Action aspirin 325 mg capsule 325 mg PO DAILY cyclobenzaprine 10 mg Tablet 10 mg PO TID PRN (Reason: spasms) atorvastatin 80 mg Tablet 80 mg PO HS Rx Instructions: take 1/2 tablet by mouth every evening trazodone 50 mg Tablet 50 mg PO HS Rx Instructions: take 1/2 tablet by mouth at bedtime cetirizine 10 mg Tablet 10 mg PO DAILY lisinopril 20 mg Tablet 20 mg PO DAILY Rx Instructions: take 1/2 tablet by mouth once a day tamsulosin 0.4 mg Capsule 0.4 mg PO HS hydrochlorothiazide 25 mg Tablet 25 mg PO DAILY finasteride 5 mg Tablet 5 mg PO DAILY duloxetine 30 mg Capsule,Delayed Release(Dr/Ec) 30 mg PO DAILY Rx Instructions: take 3 capsules by mouth once a day levofloxacin 750 mg tablet 750 mg PO DAILY Qty: 4 0RF Rx Instructions: Next dose 11/08/22 Follow-up/Referrals: [facility]ST[facility] [Primary Care Provider] -
== END 2025-03-17 17:38 | disposition home or self-care (01) ==
PROVIDERS: Emergency Provider Nurse Practitioner Family
DX: S01.01XA Laceration without foreign body of scalp, initial encounter (principal); W19.XXXA Unspecified fall, initial encounter; S80.812A Abrasion, left lower leg, initial encounter; I69.954 Hemiplegia and hemiparesis following unspecified cerebrovascular disease affecting left non-dominant side; N40.0 Benign prostatic hyperplasia without lower urinary tract symptoms; I10 Essential (primary) hypertension; G47.33 Obstructive sleep apnea (adult) (pediatric); F41.9 Anxiety disorder, unspecified; Z87.891 Personal history of nicotine dependence; Z85.72 Personal history of non-Hodgkin lymphomas; Z85.828 Personal history of other malignant neoplasm of skin; Z79.82 Long term (current) use of aspirin
CPT/HCPCS: 12001; 99212; G0463

== ENCOUNTER 2025-03-28 10:00 | Emergency (ER) | payer OTHER, MEDICARE, SELFPAY ==
--- OUTSIDE RECORDS SUMMARY | 2024-03-29 04:30 | XMS_ITS | Encounter Summary ---
Author Name [facility] [place] Organization [facility] [place] Address [address] [place] [id number] Care Team Providers Care Typewriter Operator Automatic Name Role Phone KOLE GARY Primary Care Provider Unavailabl e ELVIS OVIEDO Primary Care Provider Unavailabl e Insurance Providers: All historical and current Section Date Range: From patient's date of to the date document was created. This section includes the names of all active insurance providers for the patient. Insurance Provider Type of Coverage Plan Name Start of Policy Coverage End of Policy Coverage Group Number Member ID Insurance Provider's Telephone Number Policy Wiseman's Name Patient's Relationship to Policy Wiseman AUNG GOLD [facility] (WNR) MEDICARE ADVANTAGE [facility] (WNR) Aug 03, 2017 [facility] (WN) [id number] [phone] FR RAE SEPULVEDA PATIENT [employer] MCR (WNR) MEDICARE ADVANTAGE MCR (WNR) December 01, 2022 [id number] [phone] [id number] FR RAE SEPULVEDA PATIENT [employer] M[facility] (WNR) MEDICARE ADVANTAGE MCR (WNR) December 01, 2022 [id number] [phone] FR COCO ANK PATIENT [employer] MCR (WNR) MEDICARE ADVANTAGE MCR ( WNR) December 01, 2022 [id number] [phone] FR RAE SEPULVEDA PATIENT [employer] MCR (WNR) MEDICARE ADVANTAGE [facility] (WNR) Aug 03, 2021 [id number] [phone] [id number] FR RAE SEPULVEDA PATIENT AUNG MCR (WNR) MEDICARE ADVANTAGE MCR (WNR) Aug 03, 2017 [id number] [phone] FR RAE SEPULVEDA PATIENT [employer]UNG MCR (WNR) MEDICARE ADVANTAGE [facility] (WNR) Aug 03, 2017 [id number] [phone] FR RAE SEPULVEDA PATIENT Selected Encounter This section includes the information on record at [place] for the Encounter. Date/Time Encounter Type Encounter Description Reason Provider Source Mar 29, 2024 09:30 AM [facility] ICD-10-CM C85.10 Unspecified B-cell lymphoma, unspecified site JAVIER PATRICK Encounter Template Text not used by [place] Assessments - Encounter Diagnoses This section includes the primary and secondary diagnoses documented for the Encounter. Date/Time Primary/Secondary Diagnosis Diagnosis Name Provider Source Mar 29, 2024 03:08 PM PRIMARY Unspecified B-cell lymphoma, unspecified site MEENAKSHI WRIGHT [facility] Plan of Treatment: Future Appointments (+ 6 months) and Future Tests (+/- 45 days) The Plan of Treatment section includes future care activities for the patient from all [place] [facility]. This section includes future appointments and future orders which are active, pending or scheduled. Future Appointments This section includes appointments that were scheduled to occur 6 months from the date of the Encounter, up to a maximum of 20 appointments. The data comes from all [place] treatment facilities. Appointment Date/Time Appointment Type Appointme nt Facility Name Apr 18, 2024 09:30 AM AMBULATORY - NONE [facility] Apr 22, 2024 02:30 PM AMBULATORY - SURGERY [facility] May 09, 2024 09:00 AM AMBULATORY - NONE [facility] May 10, 2024 10:00 AM AMBULATORY - NONE [facility] May 24, 2024 10:45 AM AMBULATORY - MEDICINE [facility] Jun 16, 2024 10:30 AM AMBULATORY - SURGERY . [facility] Jun 27, 2024 08:30 AM AMBULATORY - NONE . [facility] Jul 20, 2024 08:30 AM AMBULATORY - NONE [facility] Sanz [facility] Aug 09, 2024 09:30 AM AMBULATORY - NONE [facility] Sanz [facility] Aug 15, 2024 10:00 AM AMBULATORY - MEDICINE [facility] Aug 18, 2024 10:00 AM AMBULATORY - MEDICINE [facility] Aug 29, 2024 11:00 AM AMBULATORY - MEDICINE [facility] Sep 23, 2024 12:00 PM [facility]BULATORY - NONE [facility] Sep 27, 2024 02:30 PM AMBULATORY - MEDICINE [facility] Sep 29, 2024 10:00 AM AMBULATORY - NONE [facility] Advance Directives: All historical and current Section Date Range: From patient's date of to the date document was created. This section includes ALL of a patient's completed or amended [place] Advance and Rescinded Directives. The entries below indicate that a directive exists for the patient, but an actual copy is not included with this document. The data comes from all [place] facilities. Date Advance Directives Provider Source Jun 12, [address] [facility] December 24, 2011 ADVANCE DIRECTIVE DISCUSSION TOMMY VAZQUEZ [facility] Radiology Reports: +/- 30 days of the encounter Radiology Reports For cases when an order for radiology services may have been completed prior to the date of the Encounter, the report list includes the Radiology Reports that were completed up to 30 days before dateof the Encounter. For cases when an order for radiology services may have been completed after the date of the Encounter, the report list also includes the Radiology Reports that were completed up to30 days after date of the Encounter. The data comes from all [place] treatment facilities. Date/Time Radiology Report Provider Source Mar 10, 2024 11:07 AM KNEE OA SERIES LEFT 3 VWS>/=55: JOYCELYN SEPULVEDA [id number] -1945 M Exm Date: MAR 10, 2024@11:07 Req Phys: SUSANNA HILLS Pat Loc: [facility] (Req'g Loc) Img Loc: [facility] Service: [facility], [address] [place] [address] (Case [id number] COMPLETE) KNEE,LEFT, 3 VIEWS (RAD Detailed) CPT:85056 Proc Modifiers : BILAT AP & BILAT SUNRISE Reason for Study: Left knee pain, decreased ROM, eval OA severity (Case [id number] COMPLETE) KNEE,RIGHT,1 OR 2 VIEWS (RAD Detailed) CPT:22784 Proc Modifiers : BILAT AP & BILAT SUNRISE Clinical History: Do films need to be ortho templated printed? No Report Status: Verified Date Reported: MAR 10, 2024 Date Verified: MAR 10, 2024 Controlled Area Checker E-Sig:/ES/JAYESH PRICE MD Report: Case #[id number] and #[id number]. Bilateral knee examination. Finding: AP view of the bilateral knee examination followed by lateral view of the left knee and sunrise view of bilateral patella shows advanced arthritic change in the right knee more pronounced on the lateral compartment. 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 Large suprapatellar effusion. No fracture dislocation. No radiopaque foreign body. Impression: 1. Marked arthritic change in the right knee more pronounced at the lateral compartment. 2. 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 Large left suprapatellar effusion. Primary Interpreting Staff: JAYESH PRICE MD, Staff Physician - Radiologist (Controlled Area Checker) /JAYESH JASSO [facility] Encounter Notes: All associated encounter notes This section contains the clinical notes associated to the Encounter. Date/Time Encounter Note(s) Provider Source Mar 29, 2024 09:30 AM CAREGIVER CERTIFIC ATE: LOCAL TITLE: [facility] WELLNESS CONTACT STANDARD TITLE: CAREGIVER CERTIFICATE DATE OF NOTE: MAR 29, 2024@09:30 ENTRY DATE: MAR 29, 2024@13:45:35 AUTHOR: JACQUE WRIGHT EXP COSIGNER: JAVIER PATRICK URGENCY: STATUS: COMPLETED [facility] WELLNESS CONTACT Has ADDENDA This Family Caregiver is enrolled in the [facility] Program of Comprehensive Assistance for Family Caregivers (PCAFC). While enrolled in the PCA, wellness contacts are required and must review the Veterans well-being, adequacy of personal care services being provided by the Family Caregiver(s), and the well-being of the Family Caregiver(s). This wellness contact will occur at a minimum of once every 120 days, and at least one visit must occur in the eligible Veterans home on an annual basis. Date of Visit: MAR 29, 2024 Length of Visit: 45 minutes Full Name (last, first): JOYCELYN SEPULVEDA Age: 78 Full SSN: [id number] Date of : December Method of contact: X In-Home Individuals providing input include: (include all that apply) X X Primary Family Caregiver INFORMATION is receiving care from: X Primary Family Caregiver, name: Primary NOK: BENNY SEPULVEDA Relation: [address] [place], [place] [address] Have there been any changes to the Veterans address: [address] [place], [place] [address] telephone number: e-mail address: Is Veterans contact information in electronic health record and the Caregiver Support Program IT system current? Yes Updates: No update Have there been any changes to the individuals living in the Veterans household? No Updates: No update Have there been any changes in the Veterans Advanced Directive for Health Care, Guardianship/Conservator or Fiduciary status? No Updates: No update ASSESSMENT How has your physical/mental/emotional health been lately? Wardell reports his health has been up and down. Wardell states he is falling a lot. He reports having a shot in his right knee and that has helped. He states his orthopedic doctor has really helped him and he has been feeling better since meeting with them. Have there been any changes (falls, ER visits, hospitalizations)? denies any visits to E.D. or admissions to the hospital. Wardell reports having several falls due to his knee going out unexpectedly. Do you have any medication concerns? No Details: Wardell denies any medication concerns Support services currently in place include: Home Health Aide Outpatient Respite Inpatient Respite Skilled Outpatient Respite Adult Day Health Usp Based Primary Care XX [place] Mental Health In-Home Palliative Care/Hospice Other: Do you feel that your care needs are being adequately met in the home? (discuss any areas of concern) Yes Details: Wardell reports his care needs are being adequately met in the home. What current challenges or stressors do you have, if any? Details: Tita reports nothing out of the norm for his current challenges or stressors. and Caregiver report they will be moving in April (about [place] minutes [place]) to [place], [place]. states he is looking forward to the move, as [place] and the only part of the home they have to renovate is the bathroom. Caregiver states she printed off paperwork for the [employer] silas. How are you coping with these issues? (discuss coping skills and support systems as appropriate, consider referral to mental health) Details: states he will get quiet and think out the situation. Do you feel comfortable and safe in your home environment? Yes Details: reports feeling comfortable and safe in his home environment. How can the Caregiver Support Program support you? What goals/needs can we assist you with? Details: Tita denies needing any additional support from the [facility] currently. SUMMARY OF VISIT/ACTION TAKEN Tita actively participated in the wellness contact conducted in the home. Tita was able to stay on topic and used appropriate language skills. He presented with a friendly manner and was dressed appropriate for the season. Wardell reports his care needs are being met and no concerns of safety. He denies any visits to the ED or admissions to the hospital; report having several falls. Additionally, denies any stressors/challenges and notes that he rl with stress by being quiet and taking time to think through the stress. PLAN No follow-up needed outside of regularly scheduled [facility] Wellness Contacts /brianda/ JACQUE Horan Worker, Caregiver Support Program Signed: 03/29/2024 15:08 /brianda/ JAVIER PATRICK Cattle Trader, Caregiver Support Program Cosigned: 03/30/2024 08:17 03/30/2024 ADDENDUM STATUS: COMPLETED This DOUBLE END SEWER clinical pressure control supervisor reviewed this documentation and concurs with the information and impressions contained in this note. The services provided by the [facility] are reviewed during weekly [id number]-hvpu supervision. The clinical supervision meets, or exceeds, supervision amounts required by the standards of both the National Association of Social Work Boards Accreditation and the [place] Committee for Social Workers. /brianda/ JAVIER PATRICK Cattle Trader, Caregiver Support Program Signed: 03/30/2024 08:18 JACQUE WRIGHT [facility] [place] [facility]
--- OUTSIDE RECORDS SUMMARY | 2024-04-07 04:07 | XMS_ITS | Encounter Summary ---
Author Name [place] Address [address] [place] [address] Care Team Providers Care Server Service Assistant Name Role Phone KOLE GARY Primary Care [...] Patient's Relationship to Policy Wiseman AUNG GOLD [facility] (WNR) MEDICARE ADVANTAGE [facility] (WNR) Aug 03, 2017 [facility] (WN) [id number] [phone] FR RAE SEPULVEDA PATIENT [employer] MCR (WNR) MEDICARE ADVANTAGE MCR (WNR) December 01, 2022 [id number] [phone] [id number] FR COCO RAE PATIENT [employer] MCR (WNR) MEDICARE ADVANTAGE MCR (WNR) December 01, 2022 [id number] [phone] [id number] FR COCO ANK PATIENT [employer] MCR (WNR) MEDICARE ADVANTAGE [facility] ( WNR) December 01, 2022 [id number] [phone] [id number] FR RAE SEPULVEDA PATIENT [employer] MCR (WNR) MEDICARE ADVANTAGE [facility] (WNR) Aug 03, 2021 [id number] [phone] FR RAE SEPULVEDA PATIENT [employer] MCR (WNR) MEDICARE ADVANTAGE MCR (WNR) Aug 03, 2017 [id number] [phone] FR RAE SEPULVEDA PATIENT [employer] MCR (WNR) MEDICARE ADVANTAGE [facility] (WNR) Aug 03, 2017 [id number] [phone] FR RAE SEPULVEDA PATIENT Selected Encounter This section includes the information on record at [place] for the Encounter. Date/Time Encounter Type Encounter Description Reason Pro vider Source Apr 07, 2024 09:07 AM Outpatient Encounter [facility] Encounter Template Text not used by [place] Plan of Treatment: Future Appointments (+ 6 months) and Future Tests (+/- 45 days) The Plan of Treatment section includes future care activities for the patient from all [place] [facility]. This section includes future appointments and future orders which are active, pending or scheduled. Future Appointments This section includes appointments that were scheduled to occur 6 months from the date of the Encounter, up to a maximum of 20 appointments. The data comes from all [place] treatment facilities. Appointment Date/Time Appointment Type Appointme nt Facility Name Apr 18, 2024 09:30 AM AMBULATORY - NONE [facility] Apr 22, 2024 02:30 PM AMBULATORY - SURGERY [facility] May 09, 2024 09:00 AM AMBULATORY - NONE [facility] May 10, 2024 10:00 AM AMBULATORY - NONE [facility] May 24, 2024 10:45 AM AMBULATORY - MEDICINE [facility] Jun 16, 2024 10:30 AM AMBULATORY - SUR[facility] Jun 27, 2024 08:30 AM AMBULATORY - NONE [facility] Jul 20, 2024 08:30 AM AMBULATORY - NONE [facility] Aug 09, 2024 09:30 AM AMBULATORY - NONE [facility] Aug 15, 2024 10:00 AM AMBULATORY - MEDICINE [facility] Aug 18, 2024 10:00 AM AMBULATORY - MEDICINE [facility] Aug 29, 2024 11:00 AM [facility] Sep 23, 2024 12:00 PM [facility] Sep 27, 2024 02:30 PM AMBULATORY - MEDICINE [facility] Sep 29, 2024 10:00 AM [facility] Oct 04, 2024 09:00 AM AMBULATORY - MEDICINE [facility] Advance Directives: All historical and current Section Date Range: From patient's date of to the date document was created. This section includes ALL of a patient's completed or amended [place] Advance and Rescinded Directives. The entries below indicate that a directive exists for the patient, but an actual copy is not included with this document. The data comes from all [place] facilities. Date Advance Directives Provider Source Jun 12, 2016 [address] [facility] December 24, 2011 ADVANCE DIRECTIVE DISCUSSION TOMMY VAZQUEZ [facility] Radiology Reports: +/- 30 days of the [...] the Encounter. The data comes from all [place] treatment facilities. Date/Time Radiology Report Provider Source Mar 10, 2024 11:07 AM KNEE OA SERIES LEFT 3 VWS>/=55: JOYCELYN SEPULVEDA [id number] -1945 M Exm Date: MAR 10, 2024@11:07 Req Phys: SUSANNA HILLS Pat Loc: [facility] (Req'g Loc) Img Loc: [facility] Service: [facility], [address] [place] [address] (Case [id number] COMPLETE) KNEE,LEFT, 3 VIEWS (RAD Detailed) CPT:40848 Proc Modifiers : BILAT AP & BILAT SUNRISE Reason for Study: Left knee pain, decreased ROM, eval OA severity (Case 3434 COMPLETE) KNEE,RIGHT,1 OR 2 VIEWS (RAD Detailed) CPT:02262 Proc Modifiers : BILAT AP & BILAT SUNRISE Clinical History: Do films need to be ortho templated printed? No Report Status: Verified Date Reported: MAR 10, 2024 Date Verified: MAR 10, 2024 Plate Glass Grinder E-Sig:/DEWEY/JAYESH PRICE MD Report: Case #[id number] and #[id number]. [...] JAYESH PRICE MD, Staff Physician - Radiologist (Plate Glass Grinder) /JAYESH JASSO [facility] Encounter Notes: All associated encounter notes This section contains the clinical notes associated to the Encounter. Date/Time Encounter Note(s) Provider Source Apr 07, 2024 09:07 AM NONVA NOTE: LOCAL TITLE: COMMUNITY CARE-CARE COORDINATION PLAN NOTE [address] STAND[address] TITLE: NONVA NOTE DATE OF NOTE: APR 07, 2024@09:07 ENTRY DATE: APR 07, 2024@09:07:56 AUTHOR: SURY RIVAS EXP COSIGNER: URGENCY: STATUS: COMPLETED contacted [facility] care Per vet he is receiveing a bill from an ER visit to [facility] on 10/17/23. Contact Clerk advised that per the auth it was approved. Contact Clerk provided claims number [id number]. [place] stated that he would give them a call. /jemma RIVAS Signed: 04/07/2024 09:10 SURY RIVAS [facility]
--- OUTSIDE RECORDS SUMMARY | 2024-04-22 09:30 | XMS_ITS | Encounter Summary ---
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 Name Role Phone KOLE GARY Primary Care [...] Wiseman's Name Patient's Relationship to Policy Wiseman [facility] (WNR) MEDICARE [facility] (WNR) Aug 03, 2017 [facility] ([facility]) [id number] [phone] FR RAE SEPULVEDA PATIENT [employer] [facility] (WNR) MEDICARE ADVANTAGE [facility] (WNR) December 01, 2022 [id number] [phone] FR RAE SEPULVEDA PATIENT [employer] [facility] (WNR) MEDICARE ADVANTAGE [facility] (WNR) December 01, 2022 [id number] [phone] [id number] FR COCO ANK PATIENT [employer] [facility] (WNR) MEDICARE ADVANTAGE [facility] ( WNR) December 01, 2022 [id number] [phone] FR RAE SEPULVEDA PATIENT [employer] [facility] (WNR) MEDICARE ADVANTAGE [facility] (WNR) Aug 03, 2021 [id number] [phone] FR RAE SEPULVEDA PATIENT [employer] [facility] (WNR) MEDICARE ADVANTAGE [facility] (WNR) Aug 03, 2017 [id number] [phone] FR COCO ANK PATIENT [employer] [facility] (WNR) MEDICARE ADVANTAGE [facility] (WNR) Aug 03, 2017 [id number] [phone] FR RAE SEPULVEDA PATIENT Selected Encounter This section includes the information on record at [place] for the Encounter. Date/Time Encounter Type Encounter Description Reason Provider Source Apr 22, 2024 02:30 PM OFFICE O/P EST MOD 30 MIN ORTHO/JOINT SURG ICD-10-CM M17.12 Unilateral primary osteoarthritis, left knee JEANA,KEIRSTIN A [facility] Encounter Template Text not used by [place] Assessments - Encounter Diagnoses This section includes the primary and secondary diagnoses documented for the Encounter. Date/Time Primary/Secondary Diagnosis Diagnosis Name Provider Source Apr 22, 2024 10:06 AM PRIMARY Unilateral primary osteoarthritis, left knee JEANA,KEIRSTIN A [facility] Apr 22, 2024 10:06 AM SECONDARY Unilateral primary osteoarthritis, right knee JEANA,KEIRSTIN A [facility] Plan of Treatment: Future Appointments (+ 6 months) and Future Tests (+/- 45 days) The Plan of Treatment section includes future care activities for the patient from all [place] treatmentfacilities. This section includes future appointments and future orders which are active, pending or scheduled. Future Appointments This section includes appointments that were scheduled to occur 6 months from the date of the Encounter, up to a maximum of 20 appointments. The data comes from all [place] treatment facilities. Appointment Date/Time Appointment Type Appointme nt Facility Name May 09, 2024 09:00 AM [facility] May 10, 2024 10:00 AM AMBULATORY - NONE [facility] May 24, 2024 10:45 AM AMBULATORY - MEDICINE [facility] Jun 16, 2024 10:30 AM AMBULATORY - SURGERY . [facility] Jun 27, 2024 08:30 AM AMBULATORY - NONE [facility] Jul 20, 2024 08:30 AM [facility]ULAT[facility]ONE [facility] Aug 09, 2024 09:30 AM AMBULATORY - NONE [facility] Aug 15, 2024 10:00 AM AMBULATORY - MEDICINE [facility] Aug 18, 2024 10:00 AM AMBULATORY - [facility]ICINE [facility] Aug 29, 2024 11:00 AM AMBULATORY - MEDICINE [facility] Sep 23, 2024 12:00 PM AMBULATORY - NONE [facility] Sep 27, 2024 02:30 PM AMBULATORY - MEDICINE [facility] Sep 29, 2024 10:00 AM AMBULATORY - NONE [facility] Oct 04, 2024 09:00 AM AMBULATORY - MEDICINE [facility] Oct 10, 2024 09:30 AM [facility] Oct 17, 2024 09:30 AM [facility]ORY [facility] Vital Signs: All taken on the encounter date This section contains inpatient and outpatient Vital Signs collected on the date of the Encounter. Date/Time Temperature Pulse Blood Pressure Respiratory Rate SP02 Pain Height Weight Body Mass Index Source Apr 22, 2024 09:31 AM 97.8 67 130/69 20 99 4 [facility] Advance Directives: All historical and current Section Date Range: From patient's date of to the date document was created. This section includes ALL of a patient's completed or amended [place] Advance and Rescinded Directives. The entries below indicate that a directive exists for the patient, but an actual copy is not included with this document. The data comes from all [place] facilities. Date Advance Directives Provider Source Jun 12, [address] [facility] December 24, 2011 ADVANCE DIRECTIVE DISCUSSION TOMMY VAZQUEZ [facility] Encounter Notes: All associated encounter notes This section contains the clinical notes associated to the Encounter. Date/Time Encounter Note(s) Provider Source Apr 22, 2024 09:31 AM ORTHOPEDIC SURGERY NOTE: LOCAL TITLE: ORTHOPEDIC ST STANDARD TITLE: ORTHOPEDIC SURGERY NOTE DATE OF NOTE: APR 22, 2024@09:31 ENTRY DATE: APR 22, 2024@09:31:13 AUTHOR: SUSANNA HILLS EXP COSIGNER: URGENCY: STATUS: COMPLETED Name: JOYCELYN SEPULVEDA SSN: [id number] AGE: 78 : December HPI: JOYCELYN SEPULVEDA is a 78 MALE who presents to [facility] on 22 April 2024 for follow up bilateral knees. Rec'd a steroid injection into the right knee on March 10, 2024 with 100% relief of symptoms x 2 weeks. 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 Left knee was x-rayed last visit and demonstrated OA as well. Here to continue treatment. Has had quite a bit of improvement in the buckling, no new falls, and is taking one ibuprofen in the morning and one in the evening. Initial History: MAR 10, 2024 for evaluation of right knee pain. History of surgery in the 70's. Rest helps but does not resolve, walking is terribly painful. Uses cane and braces. History of a stroke that impacted his left side, so he relies heavily on the right leg for support, ambulation and strength. He attempts to remain active, going to the [employer] to workout several times/week. He endorses the occaional buckling, concerned about the stability as much as the pain. Vitals: 03/10/24 10:20 T: 97.0 F (36.1 C) P: 103 R: 18 B/P: 102/62 Ht: 67.00 in (170.18 cm) Wt: 208.40 lb (94.53 kg) Body Mass Index: 33* Pulse Oximetry: 98% Pain: 6 Physical Exam: General - Alert & oriented x 3, pleasant, cooperative, appears stated age. Musculoskeletal - Right Knee: Mild joint effusion without erythema, ecchymosis or signs of infection throughout extremity. No muscular atrophy noted. Tenderness with palpation of the joint line medially < laterally. Patient can actively flex to 110 and extend knee to 0 with some difficulty but quite a bit of discomfort. Crepitus noted. Moderate strength against resistance. Negative Dnani's and anterior drawer test. Laxity with varus stress. Sensation intact in all distributions. Toes pink and warm with capillary refill < 2 seconds. DP pulse 2+. Calf soft and nontender. Left Lower Extremity - Mild joint effusion without erythema, ecchymosis or signs of infection throughout extremity. No muscular atrophy noted. Mild tenderness with palpation of the joint line medially. Patient can actively flex and extend knee without difficulty or discomfort. Crepitus noted. Moderate strength against resistance. Negative Danni's and anterior drawer test. Laxity with varus stress. Sensation intact in all distributions. Toes pink and warm with capillary refill < 2 seconds. DP pulse 2+. Calf soft and nontender. Xrays: KNEE,RIGHT 3 VIEWS (RAD Detailed) CPT:05195 Proc Modifiers : RIGHT, LATERAL, Stand AP, [place] Reason for Study: R knee pain post fall last week Clinical History: Report Status: Verified Date Reported: NOV 11, 2023 Date Verified: NOV 11, 2023 Bulk Driver E-Sig:/ES/PUNEET PAIZ MD Report: 3 views COMPARISON: None No acute fracture or dislocation Moderately severe tricompartmental osteoarthritis with joint space narrowing and osteophytes. Other: None Impression: Tricompartmental osteoarthritis Primary Interpreting Staff: PUNEET PAIZ MD, Radiologist (Bulk Driver) Assessment: Right knee osteoarthritis, Left knee osteoarthritis Plan: The anatomic basis and natural history of the problem were discussed with the patient. The patient conveyed an understanding of the condition. 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 - Corticosteroid injection left knee. - Durolane injection right knee. - RTC 6-8 weeks for recheck on both - possible Durolane injection left knee in future. RIGHT KNEE: The risks, benefits and treatment alternatives were discussed with the patient who wishes to proceed with right knee viscosupplementation injection. A timeout was held, patient's name, , last 4 of SSN, and site of injection were verified with the patient, and consent was signed. The patient was positioned sitting on the edge of the examination table with the knee flexed 90 . The right knee was prepped with chloraprep x 30 seconds. Using a 25 gauge needle, the right knee was injected with 5 cc's of 1% lidocaine. Once local anesthesia achieved, the patient's right knee was again prepped with chloraprep x 30 seconds. Using a 18 gauge needle, the right knee was injected with Durolane 60mg/3ml. The area was then cleansed with an alcohol prep and a sterile band-aid was placed.The patient tolerated the procedure well and post injection instructions were reviewed including avoid any activities that put stress on your knee (such as jogging, tennis, heavy lifting, standing on your feet for more than an hour) for 48 hours. Also, after the injection, if experience increased pain, redness or tenderness, seek medical attention promptly. Durolane 1% lidocaine lot [id number] Exp Hospira LEFT KNEE: The risks, benefits and treatment alternatives were discussed with the patient who wishes to proceed with left knee cortisone injection. A timeout was held, patient's name, , last 4 of SSN, and site of injection were verified with the patient, and consent was signed. The patient was positioned sitting on the edge of the examination table with the knee flexed 90 . The left knee was prepped with chloraprep x 30 seconds. Using a 25 gauge needle, the left knee was injected with 40mg of Kenalog and 4 cc's of 1% lidocaine. The area was then cleansed with an alcohol prep and a sterile band-aid was placed. The patient tolerated the procedure well and post injection instructions were reviewed including avoid any activities that put stress on your knee (such as jogging, tennis, heavy lifting, standing on your feet for more than an hour) for 48 hours. Also, after the injection, if experience increased pain, redness or tenderness, seek medical attention promptly. Kenalog 40mg [id number] [facility] [id number] [place] [employer] 1% lidocaine lot [id number] Exp Hospira /brianda/ SUSANNA HILLS PA-C Physician Canopy Inspector, Orthopedic Signed: 04/22/2024 10:06 SUSANNA HILLS [facility]
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
--- OUTSIDE RECORDS SUMMARY | 2024-05-10 05:00 | XMS_ITS ---
Author Name [place] Address [address] [place] [address] Care Team Providers Care Settlement Agent Name Role Phone KOLE GARY Primary Care [...] Name Patient's Relationship to Policy Wiseman AUNG FREITAS [facility] (WNR) MEDICARE ADVANTAGE [facility] (WNR) Aug 03, 2017 [facility] (WN) [id number] [phone] FR RAE SEPULVEDA PATIENT [employer] MCR (WNR) MEDICARE ADVANTAGE MCR (WNR) December 01, 2022 [id number] [phone] [id number] FR COCO RAE PATIENT [employer] MCR (WNR) MEDICARE ADVANTAGE MCR (WNR) December 01, 2022 [id number] [phone] [id number] FR COCO ANK PATIENT [employer] MCR (WNR) MEDICARE ADVANTAGE [facility] ( WNR) December 01, 2022 [id number] [phone] [id number] FR COCO RAE PATIENT [employer] MCR (WNR) MEDICARE ADVANTAGE [facility] (WNR) Aug 03, 2021 [id number] [phone] [id number] FR RAE SEPULVEDA PATIENT [employer] M[facility] (WNR) MEDICARE ADVANTAGE [facility] (WNR) Aug 03, 2017 [id number] [phone] FR RAE SEPULVEDA PATIENT [employer] MCR (WNR) MEDICARE ADVANTAGE [facility] (WNR) Aug 03, 2017 [id number] [phone] FR RAE SEPULVEDA PATIENT Selected Encounter This section includes the information on record at [place] for the Encounter. 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 Date/Time Primary/Secondary Diagnosis Diagnosis Name Provider Source May 10, 2024 11:00 AM PRIMARY Encounter for fitting and adjustment of oth devices TUAN BOATENG [facility] Plan of Treatment: Future Appointments (+ 6 months) and Future Tests (+/- 45 days) The Plan of Treatment section includes future care activities for the patient from all [place] treatmentfaunc healthities. This section includes future appointments and future orders which are active, pending or scheduled. Future Appointments This section includes appointments that were scheduled to occur 6 months from the date of the Encounter, up to a maximum of 20 appointments. The data comes from all [place] treatment facilities. Appointment Date/Time Appointment Type Appointme nt Facility Name May 24, 2024 10:45 AM AMBULATORY - MEDICINE [facility] Jun 16, 2024 10:30 AM AMBULATORY - SURGERY [facility] Jun 27, 2024 08:30 AM AMBULATORY - NONE [facility] Jul 20, 2024 08:30 [facility] Aug 09, 2024 09:30 AM [facility] Aug 15, 2024 10:00 AM AMBULATORY - MEDICINE [facility] Aug 18, 2024 10:00 AM [facility]UL[facility]ORY - MED[facility] Aug 29, 2024 11:00 AM AMBULATORY - MEDICINE [facility] Sep 23, 2024 12:00 PM AMBULATORY - NONE [facility] Sep 27, 2024 02:30 PM AMBULATORY - MEDICINE [facility] Sep 29, 2024 10:00 AM AMBULATORY - NONE [facility] Oct 04, 2024 09:00 AM AMBULATORY - MEDICINE [facility] Oct 10, 2024 09:30 AM AMBULATORY - MEDICINE [facility] Oct 17, 2024 09:30 AM AMBULATORY - MEDICINE [facility] Oct 24, 2024 09:30 AM AMBULATORY - MEDICINE [facility] Oct 26, 2024 09:30 AM AMBULATORY - SURGERY [facility] Oct 27, 2024 01:40 PM AMBULATORY - SURGERY [facility] Oct 31, 2024 09:30 AM AMBULATORY - MEDICINE [facility] Nov 01, 2024 09:30 AM AMBULATORY - MEDICINE [facility] Nov 01, 2024 10:30 AM AMBULATORY - MEDICINE [facility] Advance Directives: All historical and current Section Date Range: From patient's date of to the date document was created. This section includes ALL of a patient's completed or amended [place] Advance and Rescinded Directives. The entries below indicate that a directive exists for the patient, but an actual copy is not included with this document. The data comes from all [place] facilities. Date Advance Directives Provider Source Jun 12, 2016 [address] [facility] December 24, 2011 ADVANCE DIRECTIVE DISCUSSION TOMMY VAZQUEZ [facility] Encounter Notes: All associated encounter notes This section contains the clinical notes associated to the Encounter. Date/Time Encounter Note(s) Provider Source May 10, 2024 10:54 AM ORTHOTICS PROSTHET ICS CONSULT: LOCAL TITLE: PROSTHETICS CONSULT ST STANDARD TITLE: ORTHOTICS PROSTHETICS CONSULT DATE OF NOTE: MAY 10, 2024@10:54 ENTRY DATE: MAY 10, 2024@10:55:04 AUTHOR: TUAN BOATENG COSIGNER: URGENCY: STATUS: COMPLETED the pt was fit and issued 1 ea right lateral infantry operations specialist knee brace. the pt was trial fit with the brace and it was wnl. the pt walked with the knee brace and stated he was pleased with all. the pt was instructed in the proper placment and expected outcome while wearing the brace. the pt was issued contact information and instructed to follow prn. 30 min. /brianda/ TUAN BOATENG Orthotic/Caustic Strength Inspector Signed: 05/10/2024 11:00 TUAN BOATENG [facility]
--- OUTSIDE RECORDS SUMMARY | 2024-06-16 05:30 | XMS_ITS | Encounter Summary ---
Author Name [place] Address [address] [place] [address] Care Team Providers Care Matrix Plater Name Role Phone KOLE GARY Primary Care [...] Name Patient's Relationship to Policy Wiseman AUNG [facility] (WNR) MEDICARE [facility] (WNR) Aug 03, 2017 [facility] ([facility] [id number] [phone] FR RAE SEPULVEDA PATIENT HUMANA [facility] (WNR) MEDICARE ADVANTAGE [facility] (WNR) December 01, 2022 [id number] [phone] FR RAE SEPULVEDA PATIENT [employer] MCR (WNR) MEDICARE ADVANTAGE [facility] (WNR) December 01, 2022 [id number] [phone] FR COCO ANK PATIENT [employer] MCR (WNR) MEDICARE ADVANTAGE [facility] ( WNR) December 01, 2022 [id number] [phone] FR RAE SEPULVEDA PATIENT HUMANA [facility] (WNR) MEDICARE ADVANTAGE [facility] (WNR) Aug 03, 2021 [id number] [phone] FR RAE SEPULVEDA PATIENT [employer] M[facility] (WNR) MEDICARE ADVANTAGE MCR (WNR) Aug 03, 2017 [id number] FR COCO ANK PATIENT [employer] MCR (WNR) MEDICARE ADVANTAGE MCR (WNR) Aug 03, 2017 [id number] [phone] FR RAE SEPULVEDA PATIENT Selected Encounter This section includes the information on record at [place] for the Encounter. Date/Time Encounter Type Encounter Description Reason Provider Source Jun 16, 2024 10:30 AM OFFICE O/P EST MOD 30 MIN ORTHO/JOINT SURG ICD-10-CM M17.11 Unilateral primary osteoarthritis, right knee JEANA,KEIRSTIN A [facility] Encounter Template Text not used by [place] Assessments - Encounter Diagnoses This section includes the primary and secondary diagnoses documented for the Encounter. Date/Time Primary/Secondary Diagnosis Diagnosis Name Provider Source Jun 16, 2024 12:53 PM PRIMARY Unilateral primary osteoarthritis, right knee JEANA,KEIRSTIN A [facility] Jun 16, 2024 12:53 PM SECONDARY Unilateral primary osteoarthritis, left knee JEANA,KEIRSTIN A [facility] Plan of Treatment: Future Appointments (+ 6 months) and Future Tests (+/- 45 days) The Plan of Treatment section includes future care activities for the patient from all [place] treatmentfacilities. This section includes future appointments and future orders which are active, pending or scheduled. Future Appointments This section includes appointments that were scheduled to occur 6 months from the date of the Encounter, up to a maximum of 20 appointments. The data comes from all [place] treatment facilities. Appointment Date/Time Appointment Type Appointme nt Facility Name Jun 27, 2024 08:30 AM AMBULATORY - NONE [facility] Jul 20, 2024 08:30 AM AMBULATORY - NONE [facility] Aug 09, 2024 09:30 AM AMBULATORY - NONE [facility] Aug 15, 2024 10:00 AM AMBULATORY - MEDICINE [facility] Aug 18, 2024 10:00 AM AMBULATORY - MEDICINE [facility] Aug 29, 2024 11:00 AM AMBULATORY - MEDICINE [facility] Sep 23, 2024 12:00 PM AMBULATORY - NONE [facility] Sep 27, 2024 02:30 PM AMBULATORY - MEDICINE [facility] Sep 29, 2024 10:00 AM AMBULATORY - NONE [facility] Oct 04, 2024 09:00 AM AMBULATORY - MEDICINE [facility] Oct 10, 2024 09:30 AM [facility] Oct 17, 2024 09:30 AM AMBULATORY - MEDICINE [facility] Oct 24, 2024 09:30 AM AMBULATORY - MEDICINE [facility] Oct 26, 2024 09:30 AM AMBULATORY - SURGERY [facility] Oct 27, 2024 01:40 PM AMBULATORY - SURGERY [facility] Oct 31, 2024 09:30 AM AMBULATORY - MEDICINE [facility] Nov 01, 2024 09:30 AM AMBULATORY - MEDICINE [facility] Nov 01, 2024 10:30 AM AMBULATORY - MEDICINE [facility] Nov 01, 2024 11:00 AM AMBULATORY - SURGERY [facility] Nov 07, 2024 09:30 AM AMBULATORY - MEDICINE [facility] Vital Signs: All taken on the encounter date This section contains inpatient and outpatient Vital Signs collected on the date of the Encounter. Date/Time Temperature Pulse Blood Pressure Respiratory Rate SP02 Pain Height Weight Body Mass Index Source Jun 16, 2024 10:39 AM 97.6 60 131/72 18 97 5 67 207.9 33 [facility] Advance Directives: All historical and current Section Date Range: From patient's date of to the date document was created. This section includes ALL of a patient's completed or amended [place] Advance and Rescinded Directives. The entries below indicate that a directive exists for the patient, but an actual copy is not included with this document. The data comes from all [place] facilities. Date Advance Directives Provider Source Jun 12, 2016 [address] RD [facility] December 24, 2011 ADVANCE DIRECTIVE DISCUSSION TOMMY VAZQUEZ L. [facility] Encounter Notes: All associated encounter notes This section contains the clinical notes associated to the Encounter. Date/Time Encounter Note(s) Provider Source Jun 16, 2024 11:40 AM ORTHOPEDIC SURGERY NOTE: LOCAL TITLE: ORTHOPEDIC STL STANDARD TITLE: ORTHOPEDIC SURGERY NOTE DATE OF NOTE: JUN 16, 2024@11:40 ENTRY DATE: JUN 16, 2024@11:40:29 AUTHOR: SUSANNA HILLS COSIGNER: URGENCY: STATUS: COMPLETED Name: JOYCELYN SEPULVEDA SSN: [id number] AGE: 78 : December HPI: JOYCELYN SEPULVEDA is a 78 MALE who presents to [facility] on 16 June 2024 for follow up bilateral knees. Rec'd a steroid injection into the right knee on March 10, 2024 with 100% relief of symptoms x 2 weeks, trialed Durolane injection 22 April 2024 with 20% relief. Received a left knee steroid injection also on 22 April 2024 with 70% relief x 2 months. 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 Initial History: MAR 10, 2024 for evaluation of right knee pain. History of surgery in the 70's. Rest helps but does not resolve, walking is terribly painful. Uses cane and braces. History of a stroke that impacted his left side, so he relies heavily on the right leg for support, ambulation and strength. He attempts to remain active, going to the [facility] to workout several times/week. He endorses the occaional buckling, concerned about the stability as much as the pain. Vitals: 06/16/24 10:39 T: 97.6 F (36.4 C) P: 60* R: 18 B/P: 131/72 Ht: 67.00 in (170.18 cm) Wt: 207.90 lb (94.30 kg) Body Mass Index: 33* Pulse Oximetry: 97% Pain: 5 Physical Exam: General - Alert & oriented [...] nontender. Xrays: KNEE,RIGHT 3 VIEWS (RAD Detailed) CPT:70820 Proc Modifiers : RIGHT, LATERAL, Stand AP, [place] Reason for Study: R knee pain post fall last week Clinical History: Report Status: Verified Date Reported: NOV 11, 2023 Date Verified: NOV 11, 2023 Sock Turner E-Sig:/ES/PUNEET PAIZ MD Report: 3 views COMPARISON: None No acute fracture or dislocation Moderately severe tricompartmental osteoarthritis with joint space narrowing and osteophytes. Other: None Impression: Tricompartmental osteoarthritis Primary Interpreting Staff: PUNEET PAIZ MD, Radiologist (Sock Turner) Assessment: Right knee osteoarthritis, Left knee osteoarthritis Plan: The anatomic basis and natural history of the problem were discussed with the patient. The patient conveyed an understanding of the condition. The following recommendations were made: - Corticosteroid injection right knee. - Durolane injection left knee. - Briefly discussed a left TKA - patient and spouse to consider. LEFT KNEE: The risks, benefits and treatment alternatives were discussed with the patient who wishes to proceed with left knee viscosupplementation injection. A timeout was held, patient's name, , last 4 of SSN, and site of injection were verified with the patient, and consent was signed. The patient was positioned sitting on the edge of the examination table with the knee flexed 90. The left knee was prepped with chloraprep x 30 seconds. Using a 25 gauge needle, the left knee was injected with 5 cc's of 1% lidocaine. Once local anesthesia achieved, the patient's left knee was again prepped with chloraprep x [...] or tenderness, seek medical attention promptly. Durolane [id number] 1% lidocaine lot [id number] Exp [facility] RIGHT KNEE: The risks, benefits and treatment alternatives were discussed with the patient who wishes to proceed with right knee cortisone injection. A timeout was held, patient's name, , last 4 of SSN, and site of injection were verified with the patient, and consent was signed. The patient was positioned sitting on the edge of the examination table with the knee flexed 90?. The left knee was prepped with chloraprep [...] tenderness, seek medical attention promptly. Kenalog 40mg [id number] [facility] [id number] [place] Squibb 1% lidocaine lot [id number] Exp [facility]osp[facility] /es/ SUSANNA HILLS PA-C Physician Heel Gummer, Orthopedic Signed: 06/16/2024 12:53 SUSANNA HILLS [facility]
--- OUTSIDE RECORDS SUMMARY | 2024-06-27 03:30 | XMS_ITS | Encounter Summary ---
Author Name [place] Address [address] [place] [address] Care Team Providers Care Patternmaker All Around Name Role Phone KOLE GARY Primary Care [...] Name Patient's Relationship to Policy Wiseman AUNG [facility] (WNR) MEDICARE [facility] (WNR) Aug 03, 2017 [facility] (WN) [id number] [phone] FR RAE SEPULVEDA PATIENT HUMANA [facility] (WNR) MEDICARE ADVANTAGE [facility] (WNR) December 01, 2022 [id number] [phone] [id number] FR RAE SEPULVEDA PATIENT [employer] [facility] (WNR) MEDICARE ADVANTAGE [facility] (WNR) December 01, 2022 [id number] [phone] [id number] FR COCO ANK PATIENT [employer] MCR (WNR) MEDICARE ADVANTAGE [facility] ( WNR) December 01, 2022 [id number] [phone] FR RAE SEPULVEDA PATIENT HUMANA [facility] (WNR) MEDICARE ADVANTAGE [facility] (WNR) Aug 03, 2021 [id number] [phone] FR RAE SEPULVEDA PATIENT [employer] MCR (WNR) MEDICARE ADVANTAGE [facility] (WNR) Aug 03, 2017 [id number] [phone] FR COCO ANK PATIENT [employer] MCR (WNR) MEDICARE ADVANTAGE [facility] (WNR) Aug 03, 2017 [id number] [phone] FR RAE SEPULVEDA PATIENT Selected Encounter This section includes the information on record at [place] for the Encounter. Date/Time Encounter Type Encounter Description Reason Provider Source Jun 27, 2024 08:30 AM ORTHOTIC MGMT&TRAING 1ST ENC PROSTHETICS/ORTHO TICS ICD-10-CM M17.12 Unilateral primary osteoarthritis, left knee JENNIE RAO Encounter Template Text not used by [place] Assessments - Encounter Diagnoses This section includes the primary and secondary diagnoses documented for the Encounter. Date/Time Primary/Secondary Diagnosis Diagnosis Name Provider Source Jun 27, 2024 10:17 AM PRIMARY Unilateral primary osteoarthritis, left knee JENNIE RAO [facility] Jun 27, 2024 10:17 AM SECONDARY Encounter for fitting and adjustment of oth devices JENNIE RAO [facility] Plan of Treatment: Future Appointments (+ 6 months) and Future Tests (+/- 45 days) The Plan of Treatment section includes future care activities for the patient from all [place] treatmentfacilities. This section includes future appointments and future orders which are active, pending or scheduled. Future Appointments This section includes appointments that were scheduled to occur 6 months from the date of the Encounter, up to a maximum of 20 appointments. The data comes from all [place] treatment facilities. Appointment Date/Time Appointment Type Appointme nt Facility Name Jul 20, 2024 08:30 AM [facility] Aug 09, 2024 09:30 AM AMBULATORY - NONE [facility] Aug 15, 2024 10:00 AM AMBULATORY - MEDICINE [facility] Aug 18, 2024 10:00 AM AMBULATORY - MEDICINE [facility] Aug 29, 2024 11:00 AM AMBULATORY - MEDICINE [facility] Sep 23, 2024 12:00 PM AMBULATORY - NONE [facility] Sep 27, 2024 02:30 PM AMBULATORY - MEDICINE [facility] Sep 29, 2024 10:00 AM AMBULATORY - NONE [facility] Oct 04, 2024 09:00 AM AMBULATORY - MEDICINE [facility] Oct 10, 2024 09:30 AM [facility] Oct 17, 2024 09:30 AM [facility] Oct 24, 2024 09:30 AM [facility] Oct 26, 2024 09:30 AM AMBULATORY - SURGERY [facility] Oct 27, 2024 01:40 PM AMBULATORY - SURGERY [facility] Oct 31, 2024 09:30 AM AM[facility]UL[facility] Nov 01, 2024 09:30 AM AMBULATORY - MEDICINE [facility] Nov 01, 2024 10:30 AM AMBULATORY - MEDICINE [facility] Nov 01, 2024 11:00 AM AMBULATORY - SURGERY [facility] Nov 07, 2024 09:30 AM AMBULATORY - MEDICINE [facility] Nov 08, 2024 10:00 AM AMBULATORY - REHAB MEDICIN [facility] Advance Directives: All historical and current Section Date Range: From patient's date of to the date document was created. This section includes ALL of a patient's completed or amended [place] Advance and Rescinded Directives. The entries below indicate that a directive exists for the patient, but an actual copy is not included with this document. The data comes from all [place] facilities. Date Advance Directives Provider Source Jun 12, [address] [facility] December 24, 2011 ADVANCE DIRECTIVE DISCUSSION TOMMY VAZQUEZ [facility] Encounter Notes: All associated encounter notes This section contains the clinical notes associated to the Encounter. Date/Time Encounter Note(s) Provider Source Jun 27, 2024 09:30 AM ORTHOTICS PROSTHET ICS CONSULT: LOCAL TITLE: PROSTHETICS CONSULT ST STANDARD TITLE: ORTHOTICS PROSTHETICS CONSULT DATE OF NOTE: JUN 27, 2024@09:30 ENTRY DATE: JUN 27, 2024@09:30:15 AUTHOR: JENNIE RAO EXP COSIGNER: URGENCY: STATUS: COMPLETED Appt: Adjustments to right KO, measurements for left KO The patient presented today for his knee braces. His previously delivered KO meets goals when donned correctly, however, straps were coming undone, were the wrong length and the KO was sliding down his leg. The KO strap length was adjusted. Strap pads were replaced with silicone infused pads, and donning instructions were reviewed. With this, comfort goals were achieved and the KO was returned. As for his left leg, the patient fell this past weekend. He states his foot got caught on the carpet coming inside after a long day working on the yard. The patient skinned his left fingers but is otherwise ok and is showing no signs of trauma or infection. Still, this is cause for concern. The left knee needs additional support but cannot clash with the KO on the right side. A single lateral upright would possibly meet goals without placing the patient at an elevated falling risk. His knee was measured for an [employer] Infantry Officer One X knee orthosis. Leg circumference: 14 1/4 Size: s/m This KO will be ordered. Once received, the patient will be contacted for a delivery appointment. Time: 45 minutes /brianda/ JENNIE RAO CPO Outside Sales/Children'S Entertainer Signed: 06/27/2024 10:17 JENNIE RAO [facility]
--- OUTSIDE RECORDS SUMMARY | 2024-08-09 04:30 | XMS_ITS ---
Author Name [place] Address [address] [place] [address] Care Team Providers Care Cafeteria Server Name Role Phone KOLE GARY Primary Care [...] Name Patient's Relationship to Policy Wiseman [facility]G [facility] (WNR) MEDICARE [facility] (WNR) Aug 03, 2017 [facility] ([facility] [id number] [phone] FR RAE SEPULVEDA PATIENT HUMANA [facility] (WNR) MEDICARE ADVANTAGE [facility] (WNR) December 01, 2022 [id number] [phone] [id number] FR RAE SEPULVEDA PATIENT HUMANA [facility] (WNR) MEDICARE ADVANTAGE [facility] (WNR) December 01, 2022 [id number] [phone] [id number] FR COCO ANK PATIENT [employer]MANA [facility] (WNR) MEDICARE ADVANTAGE [facility] ( WNR) December 01, 2022 [id number] [phone] FR RAE SEPULVEDA PATIENT HUMANA [facility] (WNR) MEDICARE ADVANTAGE [facility] (WNR) Aug 03, 2021 [id number] [phone] [id number] FR RAE SEPULVEDA PATIENT HUMANPanch[facility] (WNR) MEDICARE ADVANTAGE MCR (WNR) Aug 03, 2017 [id number] FR RAE SEPULVEDA PATIENT [employer]MANA [facility] (WNR) MEDICARE ADVANTAGE MCR (WNR) Aug 03, 2017 [id number] [phone] FR RAE SEPULVEDA PATIENT Selected Encounter This section includes the information on record at [place] for the Encounter. Date/Time Encounter Type Encounter Description Reason Provider Source Aug 09, 2024 09:30 AM OFFICE O/P EST MOD 30 MIN PSYCHOGERIATRIC - INDIVIDUAL ICD-10-CM F32.A Depression, unspecified SYALVARADO,TE RESITA M IHE Encounter Template Text not used by [place] Assessments - Encounter Diagnoses This section includes the primary and secondary diagnoses documented for the Encounter. Date/Time Primary/Secondary Diagnosis Diagnosis Name Provider Source Aug 09, 2024 09:50 AM PRIMARY Depression, unspecified SYALVARADO,ESTUARDO RENUKALISA [facility] Aug 09, 2024 09:50 AM SECONDARY Essential (primary) hypertension SYALVARADOESTUARDO RENUKALISA [facility] Aug 09, 2024 09:50 AM SECONDARY Hyperlipidemia, unspecified [facility] Aug 09, 2024 09:50 AM SECONDARY Post-traumatic stress disorder, chronic SYALVARADO,ESTUARDO RENUKALISA [facility] Aug 09, 2024 09:50 AM SECONDARY Sleep apnea, unspecified SYALVARADO,ESTUARDO RENUKALISA [facility] Aug 09, 2024 09:50 AM SECONDARY Unspecified B-cell lymphoma, unspecified site [facility] Plan of Treatment: Future Appointments (+ 6 months) and Future Tests (+/- 45 days) The Plan of Treatment section includes future care activities for the patient from all [place] treatmentfacilities. This section includes future appointments and future orders which are active, pending or scheduled. Future Appointments This section includes appointments that were scheduled to occur 6 months from the date of the Encounter, up to a maximum of 20 appointments. The data comes from all [place] treatment facilities. Appointment Date/Time Appointment Type Appointme nt Facility Name Aug 15, 2024 10:00 AM AMBULATORY - MEDICINE [facility] Aug 18, 2024 10:00 AM AMBULATORY - MEDICINE [facility] Aug 29, 2024 11:00 AM AMBULATORY - MEDICINE [facility] Sep 23, 2024 12:00 PM AMBULATORY - NONE [facility] Sep 27, 2024 02:30 PM AMBULATORY - MEDICINE [facility] Sep 29, 2024 10:00 AM AMBULATORY - NONE [facility] Oct 04, 2024 09:00 AM AMBULATORY - MEDICINE [facility] Oct 10, 2024 09:30 AM AMBULATORY - MEDICINE [facility] Oct 17, 2024 09:30 AM AMBULATORY - MEDICINE [facility] Oct 24, 2024 09:30 AM AMBULATORY - MEDICINE [facility] Oct 26, 2024 09:30 AM AMBULATORY - SURGERY [facility] Oct 27, 2024 01:40 PM AMBULATORY - SURGERY [facility] Oct 31, 2024 09:30 AM AMBULATORY - MEDICINE [facility] Nov 01, 2024 09:30 AM AMBULATORY - MEDICINE [facility] Nov 01, 2024 10:30 AM AMBULATORY - MEDICINE [facility] Nov 01, 2024 11:00 AM AMBULATORY - SURGERY [facility] Nov 07, 2024 09:30 AM AMBULATORY - MEDICINE [facility] Nov 08, 2024 10:00 AM AMBULATORY - REHAB [facility]IN [facility] Nov 14, 2024 09:30 AM AMBULATORY - MEDICINE [facility] Nov 18, 2024 08:30 AM AMBULATORY - NONE [facility] Social History: Smoking Status (Most current) and Tobacco Use (All prior to encounter date) This section includes the most current, and the historical, smoking and tobacco- related health factors from the [place] facility where the Encounter took place. Current Smoking Status This section includes the most current smoking, or tobacco-related health factor, from the [place] facility where the Encounter took place. Date/Time Current Smoking Status Comment Janet cortez Aug 09, 2024 09:30 AM VA-TOBACCO USE FOR SARAI [employer] Tobacco Use History This section includes a history of the smoking, or tobacco-related health factors, that were collected on or before the date of the Encounter. The data comes from the [place] facility where the Encounter took place. Date/Time Smoking Status/Tobacco Use Comment F catarino Aug 09, 2024 09:30 AM VA-TOBACCO USE FOR SARAI [employer] Advance Directives: All historical and current Section Date Range: From patient's date of to the date document was created. This section includes ALL of a patient's completed or amended [place] Advance and Rescinded Directives. The entries below indicate that a directive exists for the patient, but an actual copy is not included with this document. The data comes from all [place] facilities. Date Advance Directives Provider Source Jun 12, [address] [facility] December 24, 2011 ADVANCE DIRECTIVE DISCUSSION TOMMY VAZQUEZ [facility] Encounter Notes: All associated encounter notes This section contains the clinical notes associated to the Encounter. Date/Time Encounter Note(s) Provider Source Aug 09, 2024 09:55 AM SUICIDE PREVENTION NOTE: LOCAL TITLE: [place]-SUICIDE SEVERITY RATING SCALE STANDARD TITLE: SUICIDE PREVENTION NOTE DATE OF NOTE: AUG 09, 2024@09:55 ENTRY DATE: AUG 09, 2024@09:55:12 AUTHOR: NESTOR CARPENTER COSIGNER: URGENCY: STATUS: COMPLETED Appling-Suicide Severity Rating Scale (C-SSRS Screener) 1. Over the past month, have you wished you were or wished you could go to sleep and not wake up? No 2. Over the past month, have you had any actual thoughts of killing yourself? No 3. Over the past month, have you been thinking about how you might do this? Response not required due to responses to other questions. 4. Over the past month, have you had these thoughts and had some intention of acting on them? Response not required due to responses to other questions. 5. Over the past month, have you started to work out or worked out the details of how to kill yourself? Response not required due to responses to other questions. 6. If yes, at any time in the past month did you intend to carry out this plan? Response not required due to responses to other questions. 7. In your lifetime, have you ever done anything, started to do anything, or prepared to do anything to end your life (for example, collected pills, obtained a gun, gave away valuables, went to the roof but didn't jump)? No 8. If YES, was this within the past 3 months? Response not required due to responses to other questions. I have reviewed the results of the Mental Health screens and have evaluated the patient. Based on the evaluation, the following disposition plan will be implemented: Already receiving needed treatment. Contact information and instructions for accessing emergency services provided. Comment: follow up today,no report of suicidal/homicidal idea,threat or plan, has telephone number of crises hotline/mh-art.instructed to call/make sooner apointment for any medicine/psych problem, go to emergency room for any suicidal idea. /brianda/ NESTOR CARPENTER MD Staff Physician, Psychiatry Signed: 08/09/2024 09:57 GENEVA CARPENTER [facility] Aug 09, 2024 09:31 AM PSYCHIATRY OUTPATIENT NOTE: LOCAL TITLE: MENTAL HEALTH AGING RESOURCES TEAM [facility] STANDARD TITLE: PSYCHIATRY OUTPATIENT NOTE DATE OF NOTE: AUG 09, 2024@09:31 ENTRY DATE: AUG 09, 2024@09:31:39 AUTHOR: NESTOR CARPENTER EXP COSIGNER: URGENCY: STATUS: COMPLETED Visit conducted by synchronous telehealth. [place] Location/emergency number confirmed. Environment surveyed and all participants identified. Virtual conference room locked. The Virtual Medical Room was locked for this encounter. A survey of the environment was conducted and it is appropriate to conduct a VVC appointment. Confirmed 's Non-VA location for this appointment: [facility] [address] [place] [address] [address], [place] [address] Phone: Address and phone number verified with . Address: Phone: Emergency Contact: Name: Phone: cprs Others were present at this appointment(caregiver, family member, etc.) Details: *[place] was notified of right to decline Telehealth services and eligibility for other options. [place] consented to be seen via VVC. EMERGENCY PLAN In the event of an emergency, the or family will call emergency services, if capable. The Teleprovider will remain in the virtual medical room until emergency response arrives and handoff to emergency services is complete. If [place] is unable to make emergency call, the Teleprovider is to call the national [facility] service at [phone] and ask to be connected to emergency services for the 's location. [place] Crisis Line: Dial [phone] then press [phone], or text [phone] Office of Connected Care Helpdesk ([facility]): [phone] or [phone] Verified Provider's location and contact information for this appointment: [address] [address] [phone] DIAGNOSIS: DSM V other specified depressive disorder chronic ptsd sleep apnea CHIEF COMPLAINTS:doing fine HISTORY OF PRESENT ILLNESS:78 year old,,male for consult on 10-14-22 [ [facility]] , patient able to connect with [facility],folllow up today,patient wearing eye glasses,pleasant and cooperative in providing information.patient stated he is doing fine, they move to a new house 3 month.stated they are still working on their belongings .stated he like the place, talk of his schedule rigth knee surgery [follow up orhtopedic].stated his mood is fine with present medicine: bupropion sa[ 24 hr] 300 mg oral am,duloxetene 30 mg oral am, trazodone 25 mg oral bedtime, no report of side,effect,report of sleeping fairly,not using cpapmask not fit. stated trying to to use cpap and use other mask before.stated he will talk to his pcp[va] about another sleep study for dental device.no report of lynette/psychosis, no report of drinking alcohol/drug use, no report of fall.ambulate with a quad cane. report of flashback/nightmare occasionaly and get depressed when having flashback .stated his help him cope/handle.ride in stationary bike and doing weights. PSYCHIATRIC HISTORY:history of flashback/nightmare, depression/anxiety had treatment at [facility][ psychiatrist/psychologist].re port of attended ptsd group and outpatient group, had been on different psyhcotropic medicine.no report of suicidal attempt, no report of psychiatric hospitalization, current medicine: bupropionsa[ 24 hr] 300 mg oral am, duloxetene 30 mg oral am,trazodone 25 mg oral bedtime,no history of lynette/psychosis Past MH Medications Taken/side effects/outcomes/adherence: Present, describe:report of taking other different psychotropic medicine, bupropion sa,trazodone,duloxetene MEDICAL/SURGICAL HISTORY:chronic kidney disease ,B cell lymphoma,hypertension,hyperlp idemia, sleep apnea, s/p cva with left left leg/arm weakness, left foot drop,hospitalized at [facility] last week for pneumonia, s/p excision skin cancer left lower lip on , primary care note on 01-05-24 hematology oncology note on 01-11-24 dermatology note on 01-20-23 orthopedic note on 06-16-24 HISTORY OF HEAD TRAUMA:denies/no report PAIN:deneis/no report PAST PSYCIATRIC HISTORY:history of flashback/nightmare, depression/[facility]xiety [facility][ [facility]re port of attended ptsd group and [...] ] 1 sister[ education: 9th grade,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 legal: denies/no report marital [...] THE FAMILY:daughter has drug problme[ was in [facility] drug related], no report of history of mental illness/alcohol abuse/suicide attempt in the family LIVING SITUATION:living with second , move from [place] to [place] on 06-03-[address] occasionaly [ s/pcva], drive most of the time and prepare his medicine, bath and dressedself,continent of urine/bowel, ambulate with quad cane, he do some woodwork [has little project].exercise with stationary bike Patient is a 77 year old MALE for follow-up appointment with history of the following problems: 1) HTN - Hypertension ([facility] [id number]) 2) Hyperlipidemia ([facility] [id number]) 3) Sleep apnoea 4) H/O: Stroke ([facility] [id number]) 5) B-cell lymphoma 6) Anxiety ([facility] [id number]) 7) Depression ([facility] [id number]) 8) Chronic kidney disease 9) Pes planus [...] ASSESSMENT:vvc 1] other specified depressive disorder,ptsd:consult on 10-14-22,patient able to connect with vvc .wearing eye glasses, folow up today for evaluation of mental status/medicine. patient is pleasant and cooperative in providing information . report of patient they move to another house 3 month ago and [address] the place.stated they are still busy fixing their belongings, stated he will have schedule surgery of right knee.stated his mood has been fine with current medicine and no side effect, sleeping fairly. report of flashback/nightmare ocasionaly.get depressed when he has flashback. able to handle/cope with help. speech normal amount and coherent, affect apropriate. [...] fall.stated he stay mostly at home.stated his prepare his medicine in a pill box. he ride stationary bike. 2] sleep apnea: report of sleeping failry with traozodne 25 mg oral bedtime,not using cpap no mask fit. follow up pcp 3] hypertension,hyperlipdemia,s/ p cva : follow up pcp 4] B-cell lymphoma: follow up hematology oncology Suicide/Homicide Risk:low risk,denies suicidal/homicidal idea,threat or plan,no history of suicidal attempt,family supportive. access to /medical CURRENT GAF:60 PLAN/RECOMMENDATIONS:medicati on:bupropion s[ 24 hr] [...] idea, has telephone number of crises hot [facility] continue follow up pcp and other clinic [...] at night for sleep apnea sleep hygiene social services technician for other social issues,poa fall precaution[p patient awar] S OUTPATIENT TREATMENT PLAN:done on 10-30-23 TIME SPENT WITH PATIENT [vvc] 40 min[ 25 min supportive/educational therapy] SCHEDULED FOLLOW-UP VISIT: 3 month vvc] Medication Reconciliation Opt STL: I have reviewed the patient's medication including active outpatient prescriptions dispensed from this [facility] (local) and dispensed from another [facility] with the patient. corrections, additions and/or deletions were madee as appropriate. Corrected Outpatient Medication was provided to the patient. Tobacco Use Screening - AT,DE,L,M,N,P,PH,PS,RT,S,U: The patient is a former cigarette smoker. Quit smoking GREATER THAN OR EQUAL to 15 years. The patient has never used other types of tobacco. /brianda/ NESTOR CARPENTER MD Staff Physician, Psychiatry Signed: 08/09/2024 09:54 GENEVA CARPENTER [facility]
--- OUTSIDE RECORDS SUMMARY | 2024-08-10 05:03 | XMS_ITS | Encounter Summary ---
Author Name [place] Address [address] [place] [address] Care Team Providers Care Gamma Facilities Operator Name Role Phone KOLE GARY Primary [...] Name Patient's Relationship to Policy Wiseman AUNG [facility] (WNR) MEDICARE ADVANTAGE [facility] (WNR) Aug 03, 2017 [facility] (WN) [id number] [phone] FR RAE SEPULVEDA PATIENT HUMANA [facility] (WNR) MEDICARE ADVANTAGE [facility] (WNR) December 01, 2022 [id number] [phone] FR RAE SEPULVEDA PATIENT [employer]NA [facility] (WNR) MEDICARE ADVANTAGE [facility] (WNR) December 01, 2022 [id number] [phone] [id number] FR RAE SEPULVEDA PATIENT [employer] [facility] (WNR) MEDICARE ADVANTAGE [facility] ( WNR) December 01, 2022 [id number] [phone] FR RAE SEPULVEDA PATIENT HUMANA [facility] (WNR) MEDICARE ADVANTAGE [facility] (WNR) Aug 03, 2021 [id number] [phone] FR RAE SEPULVEDA PATIENT [employer] [facility] (WNR) MEDICARE ADVANTAGE [facility] (WNR) Aug 03, 2017 [id number] [phone] FR COCO ANK PATIENT [employer] [facility] (WNR) MEDICARE ADVANTAGE MCR (WNR) Aug 03, 2017 [id number] [phone] FR RAE SEPULVEDA PATIENT Selected Encounter This section includes the information on record at [place] for the Encounter. Date/Time Encounter Type Encounter Description Reason Pro vider Source Aug 10, 2024 10:03 AM Outpatient Encounter ADMIN PAT ACTIVTIES (MASNONCT) IHE Encounter Template Text not used by [place] Plan of Treatment: Future Appointments (+ 6 months) and Future Tests (+/- 45 days) The Plan of Treatment section includes future care activities for the patient from all [place] treatmentfacilities. This section includes future appointments and future orders which are active, pending or scheduled. Future Appointments This section includes appointments that were scheduled to occur 6 months from the date of the Encounter, up to a maximum of 20 appointments. The data comes from all [place] treatment facilities. Appointment Date/Time Appointment Type Appointme nt Facility Name Aug 15, 2024 10:00 AM AMBULATORY - MEDICINE [facility] Aug 18, 2024 10:00 AM AMBULATORY - MEDICINE [facility] Aug 29, 2024 11:00 AM AMBULATORY - MEDICINE [facility] Sep 23, 2024 12:00 PM AMBULATORY - NONE [facility] Sep 27, 2024 02:30 PM AMBULATORY - MEDICINE [facility] Sep 29, 2024 10:00 AM AMBULATORY - NONE [facility] Oct 04, 2024 09:00 AM AMBULATORY - MEDICINE [facility] Oct 10, 2024 09:30 AM AMBULATORY - MEDICINE [facility] Oct 17, 2024 09:30 AM AMBULATORY - MEDICINE [facility] Oct 24, 2024 09:30 AM AMBULATORY - MEDICINE [facility] Oct 26, 2024 09:30 AM AMBULATORY - SURGERY [facility] Oct 27, 2024 01:40 PM AMBULATORY - SURGERY [facility] Oct 31, 2024 09:30 AM AMBULATORY - MEDICINE [facility] Nov 01, 2024 09:30 AM AMBULATORY - MEDICINE [facility] Nov 01, 2024 10:30 AM AMBULATORY - MEDICINE [facility] Nov 01, 2024 11:00 AM AMBULATORY - SURGERY [facility] Nov 07, 2024 09:30 AM AMBULATORY - MEDICINE [facility] Nov 08, 2024 10:00 AM AMBULATORY - REHAB MEDICIN E [facility] Nov 14, 2024 09:30 AM AMBULATORY - MEDICINE [facility] Nov 18, 2024 08:30 AM AMBULATORY - NONE [facility] Advance Directives: All historical and current Section Date Range: From patient's date of to the date document was created. This section includes ALL of a patient's completed or amended [place] Advance and Rescinded Directives. The entries below indicate that a directive exists for the patient, but an actual copy is not included with this document. The data comes from all [place] facilities. Date Advance Directives Provider Source Jun 12, [address] [facility] December 24, 2011 ADVANCE DIRECTIVE DISCUSSION TOMMY VAZQUEZ [facility] Encounter Notes: All associated encounter notes This section contains the clinical notes associated to the Encounter. Date/Time Encounter Note(s) Provider Source Aug 10, 2024 10:03 AM PHARMACY PROGRESS NOTE: LOCAL TITLE: PHARMACY GENERAL [facility] STANDARD TITLE: PHARMACY PROGRESS NOTE DATE OF NOTE: AUG 10, 2024@10:03 ENTRY DATE: AUG 10, 2024@10:03:27 AUTHOR: GURVINDER REEVES EXP COSIGNER: URGENCY: STATUS: COMPLETED PHARMACY GENERAL [facility] Has ADDENDA sent secure message to Pharmacy requesting refill of FINASTERIDE 5MG TAB. No refills remaining on Rx. Please renew as deemed appropriate, thanks. Gurvinder Reeves, PharmD. /brianda/ GURVINDER REEVES Signed: 08/10/2024 10:04 Receipt Acknowledged By: 08/10/2024 10:21 /brianda/ JOSE RODRIGUEZ Staff Physician 08/10/2024 ADDENDUM STATUS: COMPLETED medication renewed /brianda/ JOSE RODRIGUEZ Staff Physician Signed: 08/10/2024 10:22 GURVINDER REEVES [facility]
--- OUTSIDE RECORDS SUMMARY | 2024-08-15 05:00 | XMS_ITS | Encounter Summary ---
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 Name Role Phone KOLE GARY Primary [...] Name Patient's Relationship to Policy Wiseman [facility] (WNR) MEDICARE [facility] (WNR) Aug 03, 2017 [facility] ([facility] [id number] [phone] FR RAE SEPULVEDA PATIENT [facility] (WNR) MEDICARE ADVANTAGE [facility] (WNR) December 01, 2022 [id number] [phone] FR RAE SEPULVEDA PATIENT [facility] (WNR) MEDICARE ADVANTAGE [facility] (WNR) December 01, 2022 [id number] [phone] 3 FR COCO ANK PATIENT [facility] (WNR) MEDICARE ADVANTAGE [facility] ( WNR) December 01, 2022 [id number] [phone] FR RAE SEPULVEDA PATIENT [employer] [facility] (WNR) MEDICARE ADVANTAGE [facility] (WNR) Aug 03, 2021 [id number] [phone] FR COCO ANK PATIENT [facility] (WNR) MEDICARE ADVANTAGE [facility] (WNR) Aug 03, 2017 [id number] [phone] FR COCO ANK PATIENT [facility] [place] (WNR) MEDICARE ADVANTAGE [facility] (WNR) Aug 03, 2017 [id number] [phone] FR RAE SEPULVEDA PATIENT Selected Encounter This section includes the information on record at [place] for the Encounter. Date/Time Encounter Type Encounter Description Reason Provider Source Aug 15, 2024 10:00 AM OFFICE O/P EST MOD 30 MIN PRIMARY CARE/MEDICINE ICD-10-CM Z86.73 Prsnl hx of TIA (TIA), and cereb infrc w/o resid deficits ESPERANZA RODRIGUEZ Encounter Template Text not used by [place] Assessments - Encounter Diagnoses This section includes the primary and secondary diagnoses documented for the Encounter. Date/Time Primary/Secondary Diagnosis Diagnosis Name Provider Source Aug 15, 2024 10:47 AM PRIMARY Prsnl hx of TIA (TIA), and cereb infrc w/o resid deficits ESPERANZA RODRIGUEZ [facility] Aug 15, 2024 10:47 AM SECONDARY Benign prostatic hyperplasia without lower urinry tract symp ESPERANZA RODRIGUEZ [facility] Aug 15, 2024 10:47 AM SECONDARY Essential (primary) hypertension ESPERANZA RODRIGUEZ [facility] Aug 15, 2024 10:47 AM SECONDARY Hyperlipidemia, unspecified ESPERANZA RODRIGUEZ [facility] Aug 15, 2024 10:47 AM SECONDARY Pain in right knee ESPERANZA RODRIGUEZ [facility] Aug 15, 2024 10:47 AM SECONDARY Personal history of other malignant neoplasm of skin ESPERANZA RODRIGUEZ [facility] Aug 15, 2024 10:47 AM SECONDARY Post-traumatic stress disorder, chronic ESPERANZA RODRIGUEZ [facility] Aug 15, 2024 10:47 AM SECONDARY Sleep apnea, unspecified ESPERANZA RODRIGUEZ [facility] Aug 15, 2024 10:47 AM SECONDARY Unspecified B-cell lymphoma, unspecified site ESPERANZA RODRIGUEZ [facility] Plan of Treatment: Future Appointments (+ 6 months) and Future Tests (+/- 45 days) The Plan of Treatment section includes future care activities for the patient from all [place] [facility]. This section includes future appointments and future orders which are active, pending or scheduled. Future Appointments This section includes appointments that were scheduled to occur 6 months from the date of the Encounter, up to a maximum of 20 appointments. The data comes from all [place] treatment facilities. Appointment Date/Time Appointment Type Appointme nt Facility Name Aug 18, 2024 10:00 AM AMBULATORY - MEDICINE [facility] Aug 29, 2024 11:00 AM AMBULATORY - MEDICINE [facility] Sep 23, 2024 12:00 PM AMBULATORY - NONE [facility] Sep 27, 2024 02:30 PM AMBULATORY - MEDICINE [facility] Sep 29, 2024 10:00 AM AMBULATORY - NONE [facility] Oct 04, 2024 09:00 AM AMBULATORY - MEDICINE [facility] Oct 10, 2024 09:30 AM AMBULATORY - MEDICINE [facility] Oct 17, 2024 09:30 AM AMBULATORY - MEDICINE [facility] Oct 24, 2024 09:30 AM AMBULATORY - MEDICINE [facility] Oct 26, 2024 09:30 AM AMBULATORY - SURGERY [facility] Oct 27, 2024 01:40 PM AMBULATORY - SURGERY . [facility] Oct 31, 2024 09:30 AM AMBULATORY - MEDICINE [facility] Nov 01, 2024 09:30 AM AMBULATORY - MEDICINE [facility] Nov 01, 2024 10:30 AM AMBULATORY - MEDICINE [facility] Nov 01, 2024 11:00 AM AMBULATORY - SURGERY [facility] Nov 07, 2024 09:30 AM AMBULATORY - MEDICINE [facility] Nov 08, 2024 10:00 AM AMBULATORY - REHAB MEDICIN [facility] Nov 14, 2024 09:30 AM AMBULATORY - MEDICINE [facility] Nov 18, 2024 08:30 AM AMBULATORY - NONE [facility] Nov 20, 2024 08:00 AM AMBULATORY - NONE [facility] Vital Signs: All taken on the encounter date This section contains inpatient and outpatient Vital Signs collected on the date of the Encounter. Date/Time Temperature Pulse Blood Pressure Respiratory Rate SP02 Pain Height Weight Body Mass Index Source Aug 15, 2024 10:13 AM 97.4 64 137/80 18 99 0 67 205.4 32 [facility] Social History: Smoking Status (Most current) and Tobacco Use (All prior to encounter date) This section includes the most current, and the historical, smoking and tobacco- related health factors from the [place] facility where the Encounter took place. Current Smoking Status This section includes the most current smoking, or tobacco-related health factor, from the [place] facility where the Encounter took place. Date/Time Current Smoking Status Comment Facil ity Jul 06, 2023 02:30 PM [place]-TOBACCO QUIT 15 YRS OR MORE [facility] Tobacco Use History This section includes a history of the smoking, or tobacco-related health factors, that were collected on or before the date of the Encounter. The data comes from the [place] facility where the Encounter took place. Date/Time Smoking Status/Tobacco Use Comment F acility Jul 06, 2023 02:30 PM [place]-TOBACCO QUIT 15 YRS OR MORE [facility] Jul 04, 2022 10:00 AM [place]-TOBACCO FORMER USER [facility] Jul 04, 2022 10:00 AM [place]-TOBACCO QUIT 15 YRS OR MORE [facility] Advance Directives: All historical and current Section Date Range: From patient's date of to the date document was created. This section includes ALL of a patient's completed or amended [place] Advance and Rescinded Directives. The entries below indicate that a directive exists for the patient, but an actual copy is not included with this document. The data comes from all [place] facilities. Date Advance Directives Provider Source Jun 12, [address] [facility] December 24, 2011 ADVANCE DIRECTIVE DISCUSSION TOMMY VAZQUEZ [facility] Encounter Notes: All associated encounter notes This section contains the clinical notes associated to the Encounter. Date/Time Encounter Note(s) Provider Source Aug 15, 2024 10:16 AM PRIMARY CARE NOTE: LOCAL TITLE: PRIMARY CARE PROVIDER ESTABLISHED VISIT ST STANDARD TITLE: PRIMARY CARE NOTE DATE OF NOTE: AUG 15, 2024@10:16 ENTRY DATE: AUG 15, 2024@10:16:40 AUTHOR: JOSE RODRIGUEZ COSIGNER: URGENCY: STATUS: COMPLETED ESTABLISHED PATIENT AICL-MH-APET: REASON FOR VISIT/CHIEF COMPLAINT: 78yo male here for f/u visit, last visit January 2024. NonVA Providers: None HPI: Patient with hx of CVA with residual left sided weakness. He reports he recently damaged his quad cane accidentally and would like a new one. Also patient with hx of ALBARO, currently using BiPAP. He reports that he has trouble getting a good seal with his mask due to prior stroke and facial weakness. He reports he is not using his PAP regularly due to this issue. He would like f/u with sleep med to see about further treatment options, such as [facility]. Reports last sleep study at least 2-3 years ago. WHAT IS YOUR GOAL FOR TODAY? SOURCE(S) OF HISTORY: Patient PAST MEDICAL HISTORY: 1) HTN - Hypertension ([facility] [id number]) 2) Hyperlipidemia ([facility] [id number]) 3) Sleep apnoea comment: using bipap 4) H/O: Stroke ([facility] [id number]) comment: L footdrop; wears brace; L leg weaker than R comment: using straight or quad cane 5) B-cell lymphoma comment: followed by hematology 6) Anxiety ([facility] [id number]) 7) Depression ([facility] [id number]) 8) Chronic kidney disease 9) Pes planus 10) Chronic post-traumatic stress disorder 11) Exposure to potentially hazardous substance 12) History of malignant neoplasm of skin FAMILY HISTORY: Reviewed and unchanged. SOCIAL HISTORY: NICOTINE: Quit smoking 1970 ILLICIT DRUGS: None ALCOHOL: occassional beer EXERCISE/DIET: goes to gym/strength training a couple times/month; stationary bike a couple times/month MARITAL STATUS: ; 4 children ALLERGIES: Patient has answered NKA ALLERGY REVIEW: Allergy list reviewed and remains current. MEDICATIONS: Active and Recently Outpatient Medications (excluding Supplies): Active Outpatient Medications Status 1) ATORVASTATIN CALCIUM 80MG TAB TAKE ONE-HALF TABLET BY MOUTH ACTIVE EVERY EVENING Indication: FOR HIGH CHOLESTEROL 2) BUPROPION HCL 300MG 24HR SA TAB TAKE ONE TABLET BY MOUTH ACTIVE ONCE A DAY SWALLOW WHOLE - DO NOT CRUSH OR CHEW. Indication: FOR DEPRESSION 3) CETIRIZINE HCL 10MG TAB TAKE ONE TABLET BY MOUTH ONCE A DAY ACTIVE (S) Indication: FOR ALLERGY SYMPTOMS 4) CYCLOBENZAPRINE HCL 10MG TAB TAKE ONE TABLET BY MOUTH THREE ACTIVE TIMES A DAY NEEDED MAY CAUSE DROWSINESS. DO NOT DRINK ALCOHOL WHILE TAKING THIS MEDICATION. Indication: FOR MUSCLE SPASM 5) DULOXETINE HCL 30MG EC CAP TAKE THREE CAPSULES BY MOUTH ONCE ACTIVE A DAY DO NOT ABRUPTLY DISCONTINUE MEDICATION. Indication: FOR DEPRESSION 6) FINASTERIDE 5MG TAB TAKE ONE TABLET BY MOUTH ONCE A DAY ACTIVE SWALLOW WHOLE, DO NOT CRUSH, SPLIT, OR CHEW. Indication: FOR BENIGN PROSTATIC HYPERPLASIA 7) FLUTICASONE PROP 50MCG 120D NASAL INHL INSTILL 2 SPRAYS IN ACTIVE NOSTRIL(S) ONCE A DAY (MUST BE USED DIRECTED FOR MINIMUM OF 21 DAYS TO PROVIDE ADEQUATE BENEFITS) Indication: FOR RHINITIS 8) HYDROCHLOROTHIAZIDE 25MG TAB TAKE ONE TABLET BY MOUTH ONCE A ACTIVE DAY Indication: FOR HIGH BLOOD PRESSURE 9) LISINOPRIL 20MG TAB TAKE ONE-HALF TABLET BY MOUTH ONCE A DAY ACTIVE (S) Indication: FOR HIGH BLOOD PRESSURE 10) SUNSCREEN 30-50/PHY BLOCK/PABA-F LOTION APPLY LIBERALLY TO ACTIVE AFFECTED AREA(S) DIRECTED (EXTERNAL USE ONLY) Indication: FOR SKIN PROTECTION 11) TAMSULOSIN HCL 0.4MG CAP TAKE ONE CAPSULE BY MOUTH EVERY ACTIVE EVENING APPROXIMATELY 30 MINUTES AFTER THE SAME MEAL EACH DAY Indication: FOR BENIGN PROSTATIC HYPERPLASIA 12) TRAZODONE HCL 50MG TAB TAKE ONE-HALF TABLET BY MOUTH AT ACTIVE BEDTIME Indication: FOR SLEEP MEDICATION RECONCILIATION: I have reviewed the patient's medication list with the patient and/or his/her care-child caregiver. Handwritten corrections, additions and/or deletions were made to the list. Corrected Outpatient Medication List was provided to the patient/caregiver. REVIEW OF SYSTEMS: Neg other than as noted in HPI PHYSICAL EXAMINATION: VITALS (most recent, as listed in the electronic record): Temperature: 97.4 F [36.3 C] (08/15/2024 10:13) BP: 137/80 (08/15/2024 10:13) Pulse: 64 (08/15/2024 10:13) Resp: 18 (08/15/2024 10:13) PulsOx: 99% (08/15/2024 10:13) Pain: 0 (08/15/2024 10:13) Weight: Measurement DT WEIGHT LB(KG)[BMI] 08/15/2024 10:13 205.4(93.17)[32*] 06/16/2024 10:39 207.9(94.30)[33*] 03/10/2024 10:20 208.4(94.53)[33*] Gen: NAD EYE: PERRLA Cardiovascular: RRR, no murmurs, no edema Respiratory: Lungs CTAB Abd/GI: Abdomen non-distended Extremities: adequate ROM, no edema Psych: mood and affect appropriate Neuro: Alert and oriented, CN2-12 grossly intact Skin: Clear and intact DATA REVIEW: HGA1C 5.9 % 01/11/2024 08:27 HGA1C 5.7 % 02/09/2023 09:21 Lipid Panel: TRIGLYCERIDE 103 mg/dL 01/05/2024 11:40 CHOLESTEROL 155 mg/dL 01/05/2024 11:40 HDL(New) 52 mg/dL 01/05/2024 11:40 CALCULATED LDL 82 mg/dL 01/05/2024 11:40 ======== CMP: SODIUM 133 L mEq/L 01/05/2024 11:40 POTASSIUM 4.3 mEq/L 01/05/2024 11:40 CHLORIDE 95 L mEq/L 01/05/2024 11:40 UREA NITROGEN 23.6 mg/dL 01/05/2024 11:40 CREATININE 1.18 mg/dL 01/05/2024 11:40 CALCIUM 10.2 mg/dL 01/05/2024 11:40 PROTEIN 7.4 g/dL 01/05/2024 11:40 ALBUMIN 4.4 g/dL 01/05/2024 11:40 ALKALINE PHOSPHATASE 90 U/L 01/05/2024 11:40 ALT/SGPT 24 U/L 01/05/2024 11:40 AST/SGOT 27 U/L 01/05/2024 11:40 TOTAL BILIRUBIN 0.6 mg/dL 01/05/2024 11:40 CARBON DIOXIDE 28 mEq/L 01/05/2024 11:40 GLUCOSE 88 mg/dL 01/05/2024 11:40 EGFR (CKD-EPI 2020) 63.2 01/05/2024 11:40 ========= CBC: WBC 4.7 10*3/uL 01/11/2024 08:27 RBC 4.56 10*6/uL 01/11/2024 08:27 HGB 13.8 g/dL 01/11/2024 08:27 HCT 41.6 % 01/11/2024 08:27 MCV 91.2 fL 01/11/2024 08:27 MCH 30.3 pg 01/11/2024 08:27 MCHC 33.2 g/dL 01/11/2024 08:27 RDW 13.0 % 01/11/2024 08:27 PLT 228 10*3/uL 01/11/2024 08:27 MPV 8.4 fL 01/11/2024 08:27 NEUTROPHILS, AUTO % 55 % 01/11/2024 08:27 LYMPHOCYTES, AUTO % 32 % 01/11/2024 08:27 MONOCYTES, AUTO % 8 % 01/11/2024 08:27 EOSINOPHILS, AUTO % 3 % 01/11/2024 08:27 BASOPHILS, AUTO % 1 % 01/11/2024 08:27 NEUTROPHILS, ABSOLUTE 2.56 10*3/uL 01/11/2024 08:27 LYMPHOCYTES, ABSOLUTE 1.48 10*3/uL 01/11/2024 08:27 MONOCYTES, ABSOLUTE 0.38 10*3/uL 01/11/2024 08:27 EOSINOPHILS, ABSOLUTE 0.16 10*3/uL 01/11/2024 08:27 BASOPHILS, ABSOLUTE 0.05 10*3/uL 01/11/2024 08:27 No PSA (LAST 10 5Y) EO data found TSH: No TSH (1YR) EO data found ========= VITAMIN D, 25-HYDROXY 35.8 ng/mL 01/05/2024 11:40 VITAMIN D, 25-HYDROXY 37.8 ng/mL 02/09/2023 09:21 INR: No INR EO data found UA: No URINALYSIS EO data found IM - IMMUNIZATIONS ADMINISTERED Immunization Series Date Facility Reaction Info COVID-19 (MODERNA), MRNA, LNP-S,* 1 07/06/2023 [facility]* COVID-19 (PFIZER), MRNA, LNP-S, * 06/27/2024 [facility]* INFLUENZA, HIGH-DOSE, QUADRIVALE* 07/06/2023 [facility]* INFLUENZA, HIGH-DOSE, TRIVALENT,* 06/27/2024 [facility]* ASSESSMENT/PLAN: 1) CVA/HTN/HLD: hx of CVA with residual left sided weakness. Using cane to assist with ambulation and needing new quad cane--prosthetics consult placed. --HTN: controlled per home readings: Home BP's 110's-120's/70's. Continue lisinopril and HCTZ. --HLD: last LDL at 82, continue atorvastatin 40mg. Recheck lipids at next visit. 2) R knee pain: [facility]. --has tried injections and brace with continued issues. --f/u with Ortho as planned. 3) ALBARO: has most recently been using BiPAP but reports he has trouble getting a seal on his mask due to facial weakness/droop. --he would like to f/u with sleep med to see about other treatment options. --reports last sleep study done 2-3 years ago with prior [facility]. --[facility] consult [facility] for f/u. 4) B cell lymphona: stable, seeing heme/onc annually, next visit January 2025. 4) NMSC: hx of several skin CA over the years, seeing Derm every 3 months. 5) PTSD: seeing [facility]. Currently on bupropion, duloxetine, and trazodone. --reports the medications are working well for him at this time. 6) BPH: using finasteride and tamsulosin, no concerns at this time. RETURN TO CLINIC: 6 months SUMMARY STATEMENT: Plan of care has been discussed with including expected therapeutic benefits and potential side effects of prescribed medication and treatments. verbalizes understanding and is in agreement with the plan of care. Patient was instructed to keep all scheduled appointments and contact derrick worker for any additional problems. PREVENTION & SCREENING: ALCOHOL: Clinical Reminder not due now or within a month COLORECTAL CANCER: Clinical Reminder not due now or within a month BLOOD PRESSURE: Clinical Reminder not due now or within a month HEMOGLOBIN A1C: Clinical Reminder not due now or within a month Sexual Orientation - CP,L,N,P,PH,PS,S,U: The patient thinks of their sexual orientation as: Straight or Heterosexual Frail/Elderly Screen: Falls Screen: No falls within the past 12 months. /brianda/ JOSE RODRIGUEZ Staff Physician Signed: 08/15/2024 10:47 JOSE RODRIGUEZ [facility] Aug 15, 2024 10:13 AM NURSING NOTE: LOCAL TITLE: V15 PACT FACE TO FACE NOTE STL STANDARD TITLE: NURSING NOTE DATE OF NOTE: AUG 15, 2024@10:13 ENTRY DATE: AUG 15, 2024@10:13:52 AUTHOR: LOCO BRAUN EXP COSIGNER: URGENCY: STATUS: COMPLETED Provider Visit: Patient Identifiers : Full Name Date of Reason for visit: Established Follow-Up Mode of Arrival: Assistive Device: cane Allergy Review: Patient has answered NKA Allergy list reviewed and remains current. Recent Vital Signs: Temperature: 97.4 F [36.3 C] (08/15/2024 10:13) Pulse: 64 (08/15/2024 10:13) Respiration: 18 (08/15/2024 10:13) B/P: 137/80 (08/15/2024 10:13) Pain: 0 (08/15/2024 10:13) Wt: 205.4 lb [93.17 kg] (08/15/2024 10:13) Ht: 67 in [170.2 cm] (08/15/2024 10:13) BMI: 32.2 POX: 99% (08/15/2024 10:13) PERSONAL HEALTH INVENTORY Notes: No data available for PHI note titles PERSONAL HEALTH INVENTORY - MAP: No data available for PHI MAP What matters most to you in your life right now? 's Response: health Would you like to discuss any personal problem, family problem, alcohol use, drug use, or a mental or emotional illness? No Contact provided Primary Care phone number and encouraged to call if any questions or concerns. Review that after hours nurse line [phone] and emergency room are available 23/02 for patient use. Contact verbalized good understanding. /brianda/ LOCO BRAUN LPN LICENSED PRACTIAL NURSE Signed: 08/15/2024 10:15 LOCO BRAUN [facility]
--- OUTSIDE RECORDS SUMMARY | 2024-08-29 06:00 | XMS_ITS | Encounter Summary ---
Author Name [facility] [place] Organization [facility] [place] Address [address] [place] [id number] Care Team Providers Care Phone Specialist Name Role Phone KOLE GARY Primary Care [...] Patient's Relationship to Policy Wiseman AUNG FREITAS [facility] (WNR) MEDICARE ADVANTAGE [facility] (WNR) Aug 03, 2017 [facility] (WN) [id number] [phone] FR RAE SEPULVEDA PATIENT [employer] [facility] (WNR) MEDICARE ADVANTAGE [facility] (WNR) December 01, 2022 [id number] [phone] FR COCO RAE PATIENT [employer] M[facility] (WNR) MEDICARE ADVANTAGE MCR (WNR) December 01, 2022 [id number] [phone] FR COCO ANK PATIENT [employer] M[facility] (WNR) MEDICARE ADVANTAGE [facility] ( WNR) December 01, 2022 [id number] [phone] FR RAE SEPULVEDA PATIENT [employer] MCR (WNR) MEDICARE ADVANTAGE [facility] (WNR) Aug 03, 2021 [id number] [phone] FR RAE SEPULVEDA PATIENT [facility] MCR (WNR) MEDICARE ADVANTAGE MCR (WNR) Aug 03, 2017 [id number] [phone] FR RAE SEPULVDEA PATIENT [facility] MCR (WNR) MEDICARE ADVANTAGE MCR (WNR) Aug 03, 2017 [id number] [phone] FR RAE SEPULVEDA PATIENT Selected Encounter This section includes the information on record at [place] for the Encounter. Date/Time Encounter Type Encounter Description Reason Provider Source Aug 29, 2024 11:00 AM OFFICE O/P EST LOW 20 MIN DERMATOLOGY ICD-10-CM Z85.828 Personal history of other malignant neoplasm of skin JUAN SILVERIO Catrachito Encounter Template Text not used by [place] Assessments - Encounter Diagnoses This section includes the primary and secondary diagnoses documented for the Encounter. Date/Time Primary/Secondary Diagnosis Diagnosis Name Provider Source Sep 12, 2024 02:14 PM PRIMARY Personal history of other malignant neoplasm of skin [facility] Sep 12, 2024 02:14 PM SECONDARY Actinic keratosis [facility] Sep 12, 2024 02:14 PM SECONDARY Personal history of malignant melanoma of skin [facility] Plan of Treatment: Future Appointments (+ 6 months) and Future Tests (+/- 45 days) The Plan of Treatment section includes future care activities for the patient from all [place] treatmentfacilities. This section includes future appointments and future orders which are active, pending or scheduled. Future Appointments This section includes appointments that were scheduled to occur 6 months from the date of the Encounter, up to a maximum of 20 appointments. The data comes from all [place] treatment facilities. Appointment Date/Time Appointment Type Appointme nt Facility Name Sep 23, 2024 12:00 PM AMBULATORY - NONE [facility] Sep 27, 2024 02:30 PM AMBULATORY - MEDICINE [facility] Sep 29, 2024 10:00 AM AMBULATORY - NONE [facility] Oct 04, 2024 09:00 AM AMBULATORY - MEDICINE [facility] Oct 10, 2024 09:30 AM AMBULATORY - MEDICINE [facility] Oct 17, 2024 09:30 AM [facility] Oct 24, 2024 09:30 AM AMBULATORY - MEDICINE [facility] Oct 26, 2024 09:30 AM AMBULATORY - SURGERY . [facility] Oct 27, 2024 01:40 PM AMBULATORY - SURGERY [facility] Oct 31, 2024 09:30 AM [facility] Nov 01, 2024 09:30 AM AMBULATORY - MEDICINE [facility] Nov 01, 2024 10:30 AM AMBULATORY - MEDICINE [facility] Nov 01, 2024 11:00 AM AMBULATORY - SURGERY [facility] Nov 07, 2024 09:30 AM AMBULATORY - MEDICINE [facility] Nov 08, 2024 10:00 AM AMBULATORY - REHAB MEDICIN [facility] Nov 14, 2024 09:30 AM AMBULATORY - MEDICINE [facility] Nov 18, 2024 08:30 AM AMBULATORY - NONE [facility] Nov 20, 2024 08:00 AM AMBULATORY - NONE [facility] Nov 21, 2024 09:30 AM AMBULATORY - MEDICINE [facility] Nov 28, 2024 09:30 AM AMBULATORY - MEDICINE [facility] Advance Directives: All historical and current Section Date Range: From patient's date of to the date document was created. This section includes ALL of a patient's completed or amended [place] Advance and Rescinded Directives. The entries below indicate that a directive exists for the patient, but an actual copy is not included with this document. The data comes from all [place] facilities. Date Advance Directives Provider Source Jun 12, [address] [facility] December 24, 2011 ADVANCE DIRECTIVE DISCUSSION TOMMY VAZQUEZ [facility] Encounter Notes: All associated encounter notes This section contains the clinical notes associated to the Encounter. Date/Time Encounter Note(s) Provider Source Aug 29, 2024 11:25 AM DERMATOLOGY NOTE: LOCAL TITLE: DERMATOLOGY NOTE STANDARD TITLE: DERMATOLOGY NOTE DATE OF NOTE: AUG 29, 2024@11:25 ENTRY DATE: AUG 29, 2024@11:25:41 AUTHOR: CARLA LOYD EXP COSIGNER: JUAN SILVERIO URGENCY: STATUS: COMPLETED DERMATOLOGY NOTE Has [facility] [place] [facility] NOTE JOYCELYN SEPULVEDA is a 78 year old WHITE MALE with hx of NMSC (see below), DLBCL, presenting for FBSE. Today: - No concerns today. Did not use Efudex after STERLING. 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/2022 - BCC L anterior shoulder 07/2022 s/p EDC 10/2022 - nBCC R zyogmatic cheek (outside our clinic) 04/2022 s/p Aldara x 6 weeks 10/2022, repeated course for 6 weeks in 01/2023 - SCCis L extensor forearm s/p Efudex x 2w 10/2022, repeated 2w 12/2022, repeated 6w 01/2023 - snBCC right malar cheek s/p MMS - nBCC infrasternal s/p Excision 08/24 in [place] - Nod/inf BCC R lateral shoulder - s/p Excision 08/24 in [place] - snBCC R inferior helix, s/p MMS 01/2021 - nBCC R lateral neck s/p ED&C 01/2021 - nBCC L upper back s/p ED&C 01/2021 - BCC/SCC L episcopalian, L forehead, R inferior antihelix, L superior helix, L flexor arm all s/p MMS - BCC R antitragus s/p MMS 2018 - BCC L lower lip s/p MMS 2017 - BCC L preauricular cheek treated s/p MMS 2017 - BCC L lower eyelid s/p exc by oculoplastics 08/2015 - Melanoma R ear 1.1mm s/p excision 08/2014 - Multiple other BCCs (treated by Dr. Pitts) Allergies: Patient has answered NKA ROS: no fever or chills, no recent unintended weight change, no non-healing sores PE: Multiple gritty pink papules forehead, nose, cheeks, upper lip Trunk with mclaughlin stuck on appearing papules Trunk with several regular brown macules Head/neck/trunk with numerous WHSS No supraclavicular, cervical, axillary LAD Defers FBSE / extremity check Otherwise: General Appearance: Well-appearing MALE, NAD Face: wnl Ears: wnl Scalp, Hair: wnl Neck: wnl Chest: wnl Abd: wnl Back: wnl A/P: #Actinic keratoses - Discussed precancerous etiology with patient - START Efudex/5-FU cream BID x 10d - apply to pink scaly spots AA on forehead, cheeks, nose, upper lip; SER. Pt has at home #Hx of NMSC #Hx of melanoma - Melanoma R ear 1.1mm s/p excision 08/2014 - Recent history of BCC of left joe s/p MMS in 10/2022. - NER today - ABCDEs reviewed - Self check monthly - MD check regularly - Photoprotect as above RTC 3 months reeval / FBSE /es/ CARLA LOYD MD DERMATOLOGY RESIDENT Signed: 08/29/2024 11:32 /brianda/ Juan Silverio M.D., Ph.D. Burnishing Machine Operator - Dermatology Cosigned: 08/29/2024 11:48 08/29/2024 ADDENDUM STATUS: COMPLETED Discussed case with resident. Agree with history, physical examination, assessment, and plan. /brianda/ Juan Silverio M.D., Ph.D. Burnishing Machine Operator - Dermatology Signed: 08/29/2024 11:48 CARLA LOYD [facility]
--- OUTSIDE RECORDS SUMMARY | 2024-10-11 04:26 | XMS_ITS | Encounter Summary ---
Author Name [facility] [place] Organization [facility] [place] Address [address] [place] [id number] Care Team Providers Care Desk Pens Assembler Name Role Phone KOLE GARY Primary Care [...] Patient's Relationship to Policy Wiseman AUNG GOLD [facility] (WNR) MEDICARE ADVANTAGE [facility] (WNR) Aug 03, 2017 [facility] (WN) [id number] [phone] FR RAE SEPULVEDA PATIENT [employer] [facility] (WNR) MEDICARE ADVANTAGE MCR (WNR) December 01, 2022 [id number] [phone] [id number] FR RAE SEPULVEDA PATIENT [employer] [facility] (WNR) MEDICARE ADVANTAGE MCR (WNR) December 01, 2022 [id number] [phone] [id number] FR COCO ANK PATIENT [employer] M[facility] (WNR) MEDICARE ADVANTAGE MCR ( WNR) December 01, 2022 [id number] [phone] [id number] FR RAE SEPULVEDA PATIENT [employer] [facility] (WNR) MEDICARE ADVANTAGE [facility] (WNR) Aug 03, 2021 [id number] [phone] [id number] FR RAE SEPULVEDA PATIENT [facility] [place] (WNR) MEDICARE ADVANTAGE [facility] (WNR) Aug 03, 2017 [id number] [phone] FR RAE SEPULVEDA PATIENT [facility] [place] (WNR) MEDICARE ADVANTAGE [facility] (WNR) Aug 03, 2017 [id number] [phone] FR RAE SEPULVEDA PATIENT Selected Encounter This section includes the information on record at [place] for the Encounter. Date/Time Encounter Type Encounter Description Reason Provider Source Oct 11, 2024 09:26 AM Outpatient Encounter CARDIOLOGY ICD-10-CM I10 Essential (primary) hypertension ADÁN TRAN [facility] Encounter Template Text not used by [place] Assessments - Encounter Diagnoses This section includes the primary and secondary diagnoses documented for the Encounter. Date/Time Primary/Secondary Diagnosis Diagnosis Name Provider Source Oct 11, 2024 09:40 AM PRIMARY Essential (primary) hypertension ADÁN TRAN [facility] Oct 11, 2024 09:40 AM SECONDARY Chronic kidney disease, unspecified ADÁN TRAN [facility] Oct 11, 2024 09:40 AM SECONDARY Hyperlipidemia, unspecified [facility] Oct 11, 2024 09:40 AM SECONDARY Prsnl hx of TIA (TIA), and cereb infrc w/o resid deficits [facility] Oct 11, 2024 09:40 AM SECONDARY Sleep apnea, unspecified [facility] Plan of Treatment: Future Appointments (+ 6 months) and Future Tests (+/- 45 days) The Plan of Treatment section includes future care activities for the patient from all [facility]. This section includes future appointments and future orders which are active, pending or scheduled. Future Appointments This section includes appointments that were scheduled to occur 6 months from the date of the Encounter, up to a maximum of 20 appointments. The data comes from all [place] treatment facilities. Appointment Date/Time Appointment Type Appointme nt Facility Name Oct 17, 2024 09:30 AM AMBULATORY - MEDICINE [facility] Oct 24, 2024 09:30 AM AMBULATORY - MEDICINE [facility] Oct 26, 2024 09:30 AM AMBULATORY - SURGERY [facility] Oct 27, 2024 01:40 PM AMBULATORY - SURGERY . [facility] Oct 31, 2024 09:30 AM AMBULATORY - MEDICINE [facility] Nov 01, 2024 09:30 AM AMBULATORY - MED[facility] Nov 01, 2024 10:30 AM AMBULATORY - MEDIC[facility] Nov 01, 2024 11:00 AM AMBULATORY - SURGERY . [facility] Nov 07, 2024 09:30 AM AMBULATORY - MEDICINE [facility] Nov 08, 2024 10:00 AM AMBULATORY - REHAB MEDICIN [facility] Nov 14, 2024 09:30 AM AMBULATORY - MEDICINE [facility] Nov 18, 2024 08:30 AM AMBULATORY - NONE [facility] Nov 20, 2024 08:00 AM AMBULATORY - NONE [facility] Nov 21, 2024 09:30 AM AMBULATORY - MEDICINE [facility] Nov 28, 2024 09:30 AM AMBULATORY - MEDICINE [facility] Nov 30, 2024 10:00 AM AMBULATORY - MEDICINE [facility] December 05, 2024 09:30 AM AMBULATORY - MEDICINE [facility] December 12, 2024 09:30 AM AMBULATORY - MEDICINE [facility] December 12, 2024 02:00 PM AMBULATORY - REHAB [facility] December 13, 2024 11:00 AM AMBULATORY - SURGERY [facility] Active, Pending, and Scheduled Orders This section includes a listing of several types of active, pending, and scheduled orders, including clinic medications orders, diagnostic test orders, procedure orders and consult orders; where the start date of the order is 45 days before the date of the Encounter or 45 days after the date of theEncounter. The data comes from all [facility] facilities. Test Date/Time Test Type Test Details Facility Name Oct 27, 2024 12:00 AM Laboratory - Blood Bank Order TYPE & SCREEN - LAB BLOOD SP [facility] Nov 18, 2024 06:00 AM Laboratory - Blood Bank Order TYPE & SCREEN - LAB BLOOD STAT [facility] Lab Results: +/- 30 days of the encounter This section includes the Chemistry and Hematology Lab Results on record with [place] for the patient. Radiology Reports and Pathology Reports are provided separately, in subsequent sections. Lab Results This section contains the Chemistry/Hematology Results that were resulted 30 days before or 30 daysafter the date of the Encounter. Date/Time Source Result Type Result - Unit Interpretation Reference Range Specimen Type Comment Nov 01, 2024 12:05 PM [facility] URINALYSIS (STL-PB) URINE Specimen Type: URINE No comment entered. Ordering Provider: PERFECTO BOLES Report Released Date/Time: Oct 27, 2024 10:25 AM Reporting Lab: [address] [address] Performing Lab: [address] [address] URINE COLOR Light-Yellow Yellow U.BILIRUBIN Negative mg/dL Negative U.PH 6.5 5.0-8.0 APPEARANCE Clear Clear U.NITRITE Negative mg/dL Negative URN.GLUCOSE Normal mg/dL Negative URN.PROTEIN Negative mg/dL URN.UROBILINOGEN Normal mg/dL Normal URN.BLOOD Negative mg/dL Negative-Trace URN.KETONES Negative mg/dL Negative-Trac e URN.LEUK.EST. Negative mg/dL Negative-Tr sweta URN.SPECIFIC GRAVITY 1.012 Nov 01, 2024 12:05 PM [facility] URINE DRUG SCREEN (STL) URINE Specimen Type: URINE Comment: The cut-off value for Fentanyl was laboratory developed and its performance characteristics confirmed by the [facility] laboratory thru method comparison with reference laboratory and medication chart review. The laboratory is regulated under CLIA as qualified to perform high-complexity testing. Fentanyl is used for clinical purposes in conjunction with other laboratory tests. Ordering Provider: PERFECTO BOLES Report Released Date/Time: Oct 27, 2024 10:25 AM Reporting Lab: [place] [address] [facility] [address] Performing Lab: [address] [address] ETHANOL <10 mg/dL 0-9 AMPHET/METHAMPHETAMINE Negative ng/mL COCAINE METABOLITES Negative ng/mL BENZODIAZEPINES (STL) Negative ng/mL CANNABINOIDS Negative ng/mL METHADONE Negative ng/mL OPIATES Negative ng/mL CREATININE URINE/OTHERS 68.8 mg/dL 63-16 6 OXYCODONE (SYSTP-VBM-VX) Negative ng/mL BUPRENORPHINE (STL-PB-MA) Negative ng/mL FENTANYL (STL) Negative ng/mL Nov 01, 2024 12:[address] [facility] BASIC METABOLIC PANEL PLASMA Specimen Type: PL ASMA Comment: No hemolysis noted. Ordering Provider: ANDER LONGO Report Released Date/Time: Nov 01, 2024 11:45 AM Reporting Lab: [address] [address] Performing Lab: [address] [address] CREATININE 1.03 mg/dL 0.7-1.3 UREA NITROGEN 16.5 mg/dL 9.0-25.0 GLUCOSE 93 mg/dL 72-99 SODIUM 129 meq/L L 136-145 POTASSIUM 3.6 meq/L 3.5-5 CHLORIDE 98 meq/L 98-107 CARBON DIOXIDE 23 meq/L 22-31 CALCIUM 8.7 mg/dL 8.4-10.4 EGFR (CKD-EPI 2020) 74.4 >60 Oct 27, 2024 10:29 AM [facility] HGA1C BLOOD Specimen Type: BLOOD No comment entered. Ordering Provider: PERFECTO BOLES Report Released Date/Time: Oct 27, 2024 10:25 AM Reporting Lab: [facility] [address] [place] [phone] Performing Lab: [address] [address] HGA1C 5.9 4.0-6.0 Oct 27, 2024 10:29 AM [facility] VITAMIN D, 25-HYDROXY SERUM Specimen Type: SE RUM No comment entered. Ordering Provider: PERFECTO BOLES Report Released Date/Time: Oct 27, 2024 10:25 AM Reporting Lab: [facility] [address] [facility] [address] Performing Lab: [facility] [address] [facility] [address] VITAMIN D, 25-HYDROXY 24.1 ng/mL L 30-96 Oct 27, 2024 10:29 AM [facility] PT/INR NEW (STL-MA) PLASMA Specimen Type: PLAS MA No comment entered. Ordering Provider: PERFECTO BOLES Report Released Date/Time: Oct 27, 2024 10:25 AM Reporting Lab: [facility] [address] [facility] [address] Performing Lab: [address] [address] PROTIME 11.3 s 9.4-12.5 INR VALUE 1.0 {INR} Oct 27, 2024 10:29 AM [facility] COMPREHENSIVE METABOLIC PANEL PLASMA Specimen Type: PLASMA Comment: No hemolysis noted. Ordering Provider: PERFECTO BOLES Report Released Date/Time: Oct 27, 2024 10:25 AM Reporting Lab: [address] [address] Performing Lab: [address] [address] CREATININE 0.99 mg/dL 0.7-1.3 UREA NITROGEN 17.9 mg/dL 9.0-25.0 GLUCOSE 109 mg/dL H 72-99 SODIUM 126 meq/L L 136-145 POTASSIUM 4.2 meq/L 3.5-5 CHLORIDE 93 meq/L L 98-107 CARBON DIOXIDE 25 meq/L 22-31 CALCIUM 9.0 mg/dL 8.4-10.4 PROTEIN 6.7 g/dL 6-8.6 ALBUMIN 4.0 g/dL 3.4-5 TOTAL BILIRUBIN 0.6 mg/dL 0.2-1.2 ALKALINE PHOSPHATASE 82 U/L 40-150 AST/SGOT 30 U/L 5-34 ALT/SGPT 30 U/L 8-40 EGFR (CKD-EPI 2020) 78.0 >60 Oct 27, 2024 10:[address] [facility] CBC BLOOD Specimen Type: BLOOD No comment entered. Ordering Provider: PERFECTO BOLES Report Released Date/Time: Oct 27, 2024 10:25 AM Reporting Lab: [facility] [address] [facility] [address] Performing Lab: [facility] [address] [facility] [address] WBC 4.8 10*3/uL 3.6-11.2 RBC 4.34 10*6/uL 4.10-5.70 HGB 13.1 g/dL 13.1-16.8 HCT 38.8 38.2-48.4 MCV 89.4 fL 80.0-100.0 MCH 30.2 pg 27.0-34.0 MCHC 33.8 g/dL 33.0-36.0 PLT 240 10*3/uL 150-400 MPV 8.4 fL 7.5-11.2 RDW 12.9 11.8-15.1 LYMPHOCYTES, AUTO % 29 MONOCYTES, AUTO % 9 NEUTROPHILS, AUTO % 59 EOSINOPHILS, AUTO % 2 BASOPHILS, AUTO % 1 LYMPHOCYTES, ABSOLUTE 1.38 10*3/uL 0.77- 4.50 MONOCYTES, ABSOLUTE 0.45 10*3/uL 0.19-0. 80 NEUTROPHILS, ABSOLUTE 2.82 10*3/uL 2.10- 8.00 EOSINOPHILS, ABSOLUTE 0.08 10*3/uL 0.00- 0.60 BASOPHILS, ABSOLUTE 0.03 10*3/uL 0.00-0. 20 Advance Directives: All historical and current Section Date Range: From patient's date of to the date document was created. This section includes ALL of a patient's completed or amended [place] Advance and Rescinded Directives. The entries below indicate that a directive exists for the patient, but an actual copy is not included with this document. The data comes from all [place] facilities. Date Advance Directives Provider Source Jun 12, 2016 [address] [facility] December 24, 2011 ADVANCE DIRECTIVE DISCUSSION TOMMY VAZQUEZ [facility] Radiology Reports: +/- 30 days of the [...] the Encounter. The data comes from all [place] treatment facilities. Date/Time Radiology Report Provider Source Nov 01, 2024 09:58 AM NM MYOCARDIAL P SP ECT STRESS/REST-P: JOYCELYN SEPULVEDA [id number] -1945 M Exm Date: NOV 01, 2024@09:58 Req Phys: SUSANNA HILLS Loc: [facility] E-CONSULT (Req'g Loc Img Loc: [facility] Service: [address] [address] (Case [id number] COMPLETE) NM MYOCARDIAL PERF SPECT STRESS/R(NM Detailed) CPT:79012 Reason for Study: Pre-op Assessment' (Case 1429 COMPLETE) TC-99M TETROFOSMIN (MYOVIEW) (NM Detailed) CPT:A9502 (Case 1430 COMPLETE) TC-99M TETROFOSMIN (MYOVIEW), PE(NM Detailed) CPT:A9502 (Case 1431 COMPLETE) NON-HEU TC-99M ADD-ON PER STUDY D(NM Detailed) CPT:Q9969 (Case 1737 COMPLETE) REGADENOSON INJECTION (NM Detailed) CPT:J2785 Clinical History: Pre-op Assessment Report Status: Verified Date Reported: NOV 01, 2024 Date Verified: NOV 01, 2024 Oxyacetylene Welder E-Sig:/ES/Bon Castro MD,PhD Report: PATIENT NAME: JOYCELYN SEPULVEDA CASE #: [id number], [id number], [id number], [id number], [id number] EXAMINATION: Rest/Lexiscan Stress Gated SPECT Myocardial Imaging HISTORY: 78-year-old male patient presented for preoperative cardiac evaluation. TECHNIQUE: A dose of 9.4 mCi Tc-99m Myoview was administered IV at rest, and SPECT myocardial imaging was performed in the supine position. Lexiscan administration was performed under physician supervision. Cardiology will report on EKG findings and patient's stress tolerance. A dose of 37.7 mCi Tc-99m Myoview was administered IV at peak stress, and gated SPECT myocardial imaging was performed in the supine position. Non-gated prone stress imaging was also performed. COMPARISON: No prior study was found in patient's chart at the time of dictation. FINDINGS: The image quality is technically excellent with no significant patient motion or unusual soft tissue attenuation. The left ventricle is normal in size at stress and rest. TID is normal The stress SPECT images show a small area of mildly reduced counts involving the distal tiffanie-apical wall, improved in prone images, consistent with attenuation artifact. The gated images demonstrate normal myocardial thickening and normal wall motion. The calculated left ventricular ejection fraction is 72%. Impression: 1. Normal SPECT myocardial imaging without evidence of stress-induced ischemia or infarction. 2. Normal left ventricle contractility with LVEF of 72%. Diagnostic code: 1000. Dictated by Radha Proctor MD (Nuclear Medicine resident). I, Bon Castro, have reviewed the images and report and concur with these findings. Primary Interpreting Staff: Bon Castro MD,PhD, Nuclear Medicine Physician (Oxyacetylene Welder) Primary Interpreting Resident: RADHA PROCTOR MD /BON Ruelas [facility] Oct 06, 2024 09:49 AM BONE LENGTH STUDY (SCANOGRAM): JOYCELYN SEPULVEDA Panchito [id number] -1945 M Exm Date: OCT 06, 2024@09:49 Req Phys: SUSANNA HILLS Pat Loc: [facility] DEJA HILLS (Req'g Loc) Img Loc: [facility] RADIOLOG[facility] Service: Unknown [facility], [facility] [address] [place] [address] (Case [id number] COMPLETE) BONE LENGTH STUDY (SCANOGRAM) (RAD Detailed) CPT:37152 Reason for Study: Pre op eval for TKA Clinical History: Report Status: Verified Date Reported: OCT 07, 2024 Date Verified: OCT 07, 2024 Oxyacetylene Welder E-Sig:/ES/PUNEET CARDOSO MD Report: Nonstandard examination as requested for nonradiological measurement or guidance. Impression: Nonstandard imaging Primary Interpreting Staff: PUNEET CARDOSO MD, Radiologist (Oxyacetylene Welder) /PUNEET DE PAZ [facility] Oct 06, 2024 09:49 AM CHEST X-RAY, 2 VIE WS: JOYCELYN SEPULVEDA [id number] -1945 M Exm Date: OCT 06, 2024@09:49 Req Phys: JEANA,ADOLFOTIN A Pat Loc: [facility] PA JEANA (Req'g Loc) Img Loc: [facility] Service: [facility], [facility] [address] [place] [address] (Case [id number] COMPLETE) CHEST X-RAY, 2 VIEWS (RAD Detailed) CPT:49024 Reason for Study: Pre op eval for TKA Clinical History: Report Status: Verified Date Reported: OCT 07, 2024 Date Verified: OCT 07, 2024 Oxyacetylene Welder E-Sig:/ES/PUNEET CARDOSO MD Report: PA and lateral chest x-ray Comparison: none Heart: No significant pathology Lungs: No significant pathology. Mediastinum: No significant pathology Pulmonary vasculature: Within normal limits. Other: The thoracic aorta is atherosclerotic. Degenerative changes of the thoracic spine. Impression: No acute disease I, Puneet Cardoso, have reviewed the images and report and concur with these findings. Primary Interpreting Staff: PUNEET CARDOSO MD, Radiologist (Oxyacetylene Welder) Primary Interpreting Resident: Janny El, Resident /PUNEET CHEN [facility] Encounter Notes: All associated encounter notes This section contains the clinical notes associated to the Encounter. Date/Time Encounter Note(s) Provider Source Oct 11, 2024 09:26 AM CONSULT: LOCAL TITLE: E-CONSULT CARDIOLOGY OUTPT STL STANDARD TITLE: CONSULT DATE OF NOTE: OCT 11, 2024@09:26 ENTRY DATE: OCT 11, 2024@09:26:40 AUTHOR: ADÁN TRAN COSIGNER: URGENCY: STATUS: COMPLETED E-CONSULT CARDIOLOGY OUTPT STL Has ADDENDA The reason for consult: EKG for preoperative work-up for orthopedic procedure revealed potential inferior infarct, patient does not recall any prior cardiac history. Does this need further work-up prior to pursuing orthopedic surgery? I have reviewed pertinent CPRS documentation in the electronic medical record for this patient. The recommendations/findings offered are the result of information from the requesting provider and a chart review only. 1) HTN - Hypertension ([facility] [id number]) 2) Hyperlipidemia ([facility] [id number]) 3) Sleep apnoea 4) H/O: Stroke ([facility] [id number]) 5) B-cell lymphoma 6) Anxiety ([facility] [id number]) 7) Depression ([facility] [id number]) 8) Chronic kidney disease 9) Pes planus 10) Chronic post-traumatic stress disorder 11) Exposure to potentially hazardous substance 12) History of malignant neoplasm of skin Patient has answered NKA Active and Recently Outpatient Medications (including Supplies): Active Outpatient Medications [...] TABLET BY MOUTH ONCE A DAY ACTIVE Indication: FOR ALLERGY SYMPTOMS 4) CYCLOBENZAPRINE HCL [...] TABLET BY MOUTH ONCE A DAY ACTIVE Indication: FOR HIGH BLOOD PRESSURE 10) SODIUM FLUORIDE 1.1% TOOTHPASTE USE DIRECTED BY MOUTH ACTIVE TWICE A DAY TOOTHPASTE (DO NOT SWALLOW) APPLY A PEA-SIZED AMOUNT OF THE PASTE TO A TOOTHBRUSH AND BRUSH THOROUGHLY FOR TWO MINUTES, AT MORNING AND AT NIGHT; SPIT, DO NOT RINSE. DO NOT EAT, DRINK, OR RINSE FOR 30 MINUTES AFTER USE. Indication: FOR DENTAL CARIES 11) SUNSCREEN 30-50/PHY BLOCK/PABA-F LOTION APPLY LIBERALLY TO ACTIVE AFFECTED AREA(S) DIRECTED (EXTERNAL USE ONLY) Indication: FOR SKIN PROTECTION 12) TAMSULOSIN HCL 0.4MG CAP TAKE ONE CAPSULE BY MOUTH EVERY ACTIVE EVENING APPROXIMATELY 30 MINUTES AFTER THE SAME MEAL EACH DAY Indication: FOR BENIGN PROSTATIC HYPERPLASIA 13) TRAZODONE HCL 50MG TAB TAKE ONE-HALF TABLET BY MOUTH AT ACTIVE BEDTIME Indication: FOR SLEEP TSH: TSH 2.002 uIU/mL 10/15/2022 10:50 TRIGLYCERIDE 103 mg/dL 01/05/2024 11:40 CHOLESTEROL 155 mg/dL 01/05/2024 11:40 HDL(New) 52 mg/dL 01/05/2024 11:40 CALCULATED LDL 82 mg/dL 01/05/2024 11:40 HGA1C 5.9 % 01/11/2024 08:27 Comprehensive Metabolic Panel Results: SODIUM 133 L mEq/L 01/05/2024 11:40 POTASSIUM [...] 11:40 EGFR (CKD-EPI 2020) 63.2 01/05/2024 11:40 WBC 4.7 10*3/uL 01/11/2024 08:27 RBC 4.56 [...] 08:27 BASOPHILS, ABSOLUTE 0.05 10*3/uL 01/11/2024 08:27 67 in [170.2 cm] (08/15/2024 10:13) 205.4 lb [93.17 kg] (08/15/2024 10:13) BMI 32 Date Verified: Oct 10, 2024@09:52:49 29779.2 Ventricular Rate: 80 BPM 07741.3 Atrial Rate: 80 BPM 96435.4 P-R Interval: 194 ms 39454.5 QRS Duration: 96 ms 73814.6 Q-T Interval: 374 ms 38336 QTC Calculation(Bazett)431 ms 88491.12 Calculated P [place]: 48 degrees 00196.13 Calculated R [place]: 55 degrees 11553.14 Calculated T [place]: -11 degrees Normal sinus rhythm Possible Inferior infarct , age undetermined Abnormal ECG No previous ECGs available Diagnosis and/or Impression: Mr Sepulveda is a 78 yo male with a PMHx of HTN, HLD, remote hx of CVA, impaired blood sugars, and hyponatremia per labs last drawn. Plan for orthopedic surgery total knee replacemnt. With possible inferior infarct, age undetermined along with hx of CVA, this will give a 2+ independent predictor of major cardiac complications Rate of cardiac , nonfatal myocardial infarction, and nonfatal cardiac arrest according to the number of predictors 2 risk factors 2.4% (95% CI 1.3-3.5) Rate of myocardial infarction, pulmonary edema, ventricular fibrillation, primary cardiac arrest, and complete heart block 2 risk factors 3.6% (95% CI 2.1-5.6) If there is time for a stress echo that would be beneficial to exclude cardiac concerns. If he is without symptoms of CP, SOB, dizziness/lightheadedness, N&V. Okay to proceed but stress echo should be completed at some time. Thank you for this consult. 31+ minutes reviewing patient's medical records /brianda/ ADÁN TRAN PATHOLOGY MANAGER CARDIOLOGY/ELECTROPHYSIOLOGY PATHOLOGY MANAGER Signed: 10/11/2024 09:43 10/17/2024 ADDENDUM STATUS: COMPLETED Stress Echo ordered per cardiology recommendations. Patient has scheduled appointment with orthopedic surgeon October 27. /brianda/ SUSANNA HILLS PA-C Physician Senior Water/Wastewater Engineer, Orthopedic Signed: 10/17/2024 09:00 ADÁN TRAN [facility]
--- OUTSIDE RECORDS SUMMARY | 2024-10-26 04:00 | XMS_ITS | Encounter Summary ---
Author Name [facility] [place] Organization [facility] [place] [place] Address [address] [place] [address] Care Team Providers Care Weather Teacher Name Role Phone KOLE GARY Primary Care [...] Name Patient's Relationship to Policy Wiseman AUNG ZENA [facility] (WNR) MEDICARE ADVANTAGE [facility] (WNR) Aug 03, 2017 [facility] (WN) [id number] [phone] FR RAE SEPULVEDA PATIENT HUMANA [facility] (WNR) MEDICARE ADVANTAGE [facility] (WNR) December 01, 2022 [id number] [phone] FR RAE SEPULVEDA PATIENT [employer]NA [facility] (WNR) MEDICARE ADVANTAGE [facility] (WNR) December 01, 2022 [id number] [phone] FR RAE SEPULVEDA PATIENT [employer] [facility] (WNR) MEDICARE ADVANTAGE [facility] ( WNR) December 01, 2022 [id number] [phone] FR RAE SEPULVEDA PATIENT [employer]MANA [facility] (WNR) MEDICARE ADVANTAGE [facility] (WNR) Aug 03, 2021 [id number] [phone] FR RAE SEPULVEDA PATIENT [employer] [facility] (WNR) MEDICARE ADVANTAGE [facility] (WNR) Aug 03, 2017 [id number] [phone] FR RAE SEPULVEDA PATIENT [employer] [facility] (WNR) MEDICARE ADVANTAGE [facility] (WNR) Aug 03, 2017 [id number] [phone] FR RAE SEPULVEDA PATIENT Selected Encounter This section includes the information on record at [place] for the Encounter. Date/Time Encounter Type Encounter Description Reason Provider Source Oct 26, 2024 09:00 AM HEARING AID XM&SLCTN [facility] AUDIOLOGY ICD-10-CM H90.3 Sensorineural hearing loss, bilateral VEST,TRISHA A BEKCYE Encounter Template Text not used by [place] Assessments - Encounter Diagnoses This section includes the primary and secondary diagnoses documented for the Encounter. Date/Time Primary/Secondary Diagnosis Diagnosis Name Provider Source Oct 26, 2024 09:53 AM PRIMARY Sensorineural hearing loss, bilateral ELISA SOLIZ [facility] Plan of Treatment: Future Appointments (+ 6 months) and Future Tests (+/- 45 days) The Plan of Treatment section includes future care activities for the patient from all [place] [facility]. This section includes future appointments and future orders which are active, pending or scheduled. Future Appointments This section includes appointments that were scheduled to occur 6 months from the date of the Encounter, up to a maximum of 20 appointments. The data comes from all [place] treatment facilities. Appointment Date/Time Appointment Type Appointme nt Facility Name Oct 27, 2024 01:40 PM AMBULATORY - SURGERY . [facility] Oct 31, 2024 09:30 AM AMBULATORY - MEDICINE [facility] Nov 01, 2024 09:30 AM AMBULATORY - MEDICINE [facility] Nov 01, 2024 10:30 AM AMBULATORY - MEDICINE [facility] Nov 01, 2024 11:00 AM AMBULATORY - SURGERY . [facility] Nov 07, 2024 09:30 AM [facility] Nov 08, 2024 10:00 AM AMBULATORY - REHAB MEDICIN E [facility] Nov 14, 2024 09:30 AM AMBULATORY - MEDICINE [facility] Nov 18, 2024 08:30 AM AMBULATORY - NONE [facility] Nov 20, 2024 08:00 AM AMBULATORY - NONE [facility] Nov 21, 2024 09:30 AM AMBULATORY - MEDICINE [facility] Nov 28, 2024 09:30 AM AMBULATORY - MEDICINE [facility] Nov 30, 2024 10:00 AM AMBULATORY - MEDICINE [facility] December 05, 2024 09:30 AM AMBULATORY - MEDICINE [facility] December 12, 2024 09:30 AM AMBULATORY - MEDICINE [facility] December 12, 2024 02:00 PM AMBULATORY - REHAB MEDICIN E [facility] December 13, 2024 11:00 AM AMBULATORY - SURGERY [facility] December 14, 2024 10:00 AM AMBULATORY - SURGERY [facility] December 19, 2024 09:30 AM AMBULATORY - MEDICINE [facility] December 19, 2024 11:00 AM AMBULATORY - REHAB MEDICIN E [facility] Active, Pending, and Scheduled Orders This section includes a listing of several types of active, pending, and scheduled orders, including clinic medications orders, diagnostic test orders, procedure orders and consult orders; where the start date of the order is 45 days before the date of the Encounter or 45 days after the date of theEncounter. The data comes from all [facility]. Test Date/Time Test Type Test Details Facility Name Oct 27, 2024 12:00 AM Laboratory - Blood Bank Order TYPE & SCREEN - LAB BLOOD SP [facility] Nov 18, 2024 06:00 AM Laboratory - Blood Bank Order TYPE & SCREEN - LAB BLOOD STAT [facility] Lab Results: +/- 30 days of the encounter This section includes the Chemistry and Hematology Lab Results on record with [facility] for the patient. Radiology Reports and Pathology Reports are provided separately, in subsequent sections. Lab Results This section contains the Chemistry/Hematology Results that were resulted 30 days before or 30 daysafter the date of the Encounter. Date/Time Source Result Type Result - Unit Interpretation Reference Range Specimen Type Comment Nov 19, 2024 02:24 PM [facility] BASIC METABOLIC PANEL PLASMA Specimen Type: PLASMA Comment: No hemolysis noted. Ordering Provider: BESSY HOYT Report Released Date/Time: Nov 19, 2024 06:00 AM Reporting Lab: [address] [address] Performing Lab: [address] [address] CREATININE 1.16 mg/dL 0.7-1.3 UREA NITROGEN 21.3 mg/dL 9.0-25.0 GLUCOSE 101 mg/dL H 72-99 SODIUM 133 meq/L L 136-145 POTASSIUM 4.4 meq/L 3.5-5 CHLORIDE 100 meq/L 98-107 CARBON DIOXIDE 21 meq/L L 22-31 CALCIUM 9.4 mg/dL 8.4-10.4 EGFR (CKD-EPI 2020) 64.5 >60 Nov 19, 2024 11:54 AM [facility] CBC BLOOD Specimen Type: BLOOD Comment: SCAN OF SLIDE AGREES WITH AUTOMATED DIFF Ordering Provider: JEFFERSON VITAL Report Released Date/Time: Nov 19, 2024 11:44 AM Reporting Lab: [address] [address] Performing Lab: [address] [address] WBC 11.2 10*3/uL 3.6-11.2 RBC 3.49 10*6/uL L 4.10-5.70 HGB 10.7 g/dL L 13.1-16.8 HCT 31.6 L 38.2-48.4 MCV 90.5 fL 80.0-100.0 MCH 30.7 pg 27.0-34.0 MCHC 33.9 g/dL 33.0-36.0 PLT 226 10*3/uL 150-400 MPV 8.6 fL 7.5-11.2 RDW 13.3 11.8-15.1 LYMPHOCYTES, AUTO % 16 MONOCYTES, AUTO % 10 NEUTROPHILS, AUTO % 74 EOSINOPHILS, AUTO % 0 BASOPHILS, AUTO % 0 LYMPHOCYTES, ABSOLUTE 1.74 10*3/uL 0.77- 4.50 MONOCYTES, ABSOLUTE 1.12 10*3/uL H 0.19-0. 80 NEUTROPHILS, ABSOLUTE 8.24 10*3/uL H 2.10- 8.00 EOSINOPHILS, ABSOLUTE 0.00 10*3/uL 0.00- 0.60 BASOPHILS, ABSOLUTE 0.02 10*3/uL 0.00-0. 20 Nov 19, 2024 11:54 AM [facility] BASIC METABOLIC PANEL PLASMA Specimen Type: PL ASMA Comment: No hemolysis noted. Ordering Provider: JEFFERSON VITAL Report Released Date/Time: Nov 19, 2024 11:44 AM Reporting Lab: [address] [address] Performing Lab: [address] [address] CREATININE 1.15 mg/dL 0.7-1.3 UREA NITROGEN 23.4 mg/dL 9.0-25.0 GLUCOSE 107 mg/dL H 72-99 SODIUM 132 meq/L L 136-145 POTASSIUM 4.1 meq/L 3.5-5 CHLORIDE 101 meq/L 98-107 CARBON DIOXIDE 23 meq/L 22-31 CALCIUM 9.2 mg/dL 8.4-10.4 EGFR (CKD-EPI 2020) 65.1 >60 Nov 18, 2024 06:00 PM [facility] MRSA SURVL NARES DNA NARES Specimen Type: MADINA ES Comment: Qualitative real-time PCR test for the rapid detection of methicillin-resistant Staphylococcus aureus (MRSA) DNA from nasal swabs. A negative result does not preclude infection with the agent(s) tested and should not be used as the sole basis for treatment or other patient management decisions. A positive test does not necessarily indicate the presence of viable organisms, following bacterial culture to recover the organism for further characterization and susceptibility testing. All results must be combined with clinical observations, patient history, and epidemiological information for final interpretation. Ordering Provider: YOVANI DUNN Report Released Date/Time: Nov 18, 2024 03:43 PM Reporting Lab: [address] [address] Performing Lab: [address] [address] MRSA SURVL NARES DNA Negative Negative Nov 16, 2024 08:28 AM [facility] TSH W/ REFLEX FT4 (STL) PLASMA Specimen Type: PLASMA No comment entered. Ordering Provider: ALONDRA BRYANT Report Released Date/Time: Nov 01, 2024 04:02 PM Reporting Lab: [address] [address] Performing Lab: [address] [address] TSH 1.991 u[IU]/mL 0.47-5 Nov 16, 2024 08:28 AM [facility] BASIC METABOLIC PANEL PLASMA Specimen Type: PL ASMA Comment: No hemolysis noted. Ordering Provider: ALONDRA BRYANT Report Released Date/Time: Nov 01, 2024 04:02 PM Reporting Lab: [address] [address] Performing Lab: [address] [address] CREATININE 1.02 mg/dL 0.7-1.3 UREA NITROGEN 14.7 mg/dL 9.0-25.0 GLUCOSE 98 mg/dL 72-99 SODIUM 134 meq/L L 136-145 POTASSIUM 4.2 meq/L 3.5-5 CHLORIDE 100 meq/L 98-107 CARBON DIOXIDE 24 meq/L 22-31 CALCIUM 9.5 mg/dL 8.4-10.4 EGFR (CKD-EPI 2020) 75.2 >60 Nov 01, 2024 12:05 PM [facility] URINALYSIS (STL-PB) URINE Specimen Type: URIN E No comment entered. Ordering Provider: PERFECTO BOLES Report Released Date/Time: Oct 27, 2024 10:25 AM Reporting Lab: [address] [address] Performing Lab: [address] [address] URINE COLOR Light-Yellow Yellow U.BILIRUBIN Negative mg/dL Negative U.PH 6.5 5.0-8.0 APPEARANCE Clear Clear U.NITRITE Negative mg/dL Negative URN.GLUCOSE Normal mg/dL Negative URN.PROTEIN Negative mg/dL URN.UROBILINOGEN Normal mg/dL Normal URN.BLOOD Negative mg/dL Negative-Trace URN.KETONES Negative mg/dL Negative-Trac e URN.LEUK.EST. Negative mg/dL Negative-Tr sweta URN.SPECIFIC GRAVITY 1.012 Nov 01, 2024 12:05 PM [facility] URINE DRUG SCREEN (STL) URINE Specimen Type: URINE Comment: The cut-off value for Fentanyl was laboratory developed and its performance characteristics confirmed by the [facility] laboratory thru method comparison with reference laboratory and medication chart review. The laboratory is regulated under CLIA as qualified to perform high-complexity testing. Fentanyl is used for clinical purposes in conjunction with other laboratory tests. Ordering Provider: PERFECTO BOLES Report Released Date/Time: Oct 27, 2024 10:25 AM Reporting Lab: [place] [id number] [facility] [address] Performing Lab: [address] [address] ETHANOL <10 mg/dL 0-9 AMPHET/METHAMPHETAMINE Negative ng/mL COCAINE METABOLITES Negative ng/mL BENZODIAZEPINES (STL) Negative ng/mL CANNABINOIDS Negative ng/mL METHADONE Negative ng/mL OPIATES Negative ng/mL CREATININE URINE/OTHERS 68.8 mg/dL 63-16 6 OXYCODONE (DFGBS-WGJ-LD) Negative ng/mL BUPRENORPHINE (STL-PB-MA) Negative ng/mL FENTANYL (STL) Negative ng/mL Nov 01, 2024 12:05 PM [facility] BASIC METABOLIC PANEL PLASMA Specimen Type: PL ASMA Comment: No hemolysis noted. Ordering Provider: ANDER LONGO Report Released Date/Time: Nov 01, 2024 11:45 AM Reporting Lab: [place] [id number] [facility] [address] Performing Lab: [address] [address] CREATININE 1.03 mg/dL 0.7-1.3 UREA NITROGEN 16.5 mg/dL 9.0-25.0 GLUCOSE 93 mg/dL 72-99 SODIUM 129 meq/L L 136-145 POTASSIUM 3.6 meq/L 3.5-5 CHLORIDE 98 meq/L 98-107 CARBON DIOXIDE 23 meq/L 22-31 CALCIUM 8.7 mg/dL 8.4-10.4 EGFR (CKD-EPI 2020) 74.4 >60 Oct 27, 2024 10:29 AM [facility] HGA1C BLOOD Specimen Type: BLOOD No comment entered. Ordering Provider: PERFECTO BOLES Report Released Date/Time: Oct 27, 2024 10:25 AM Reporting Lab: [facility] [address] [facility] [address] Performing Lab: [facility] [address] [place] [phone] HGA1C 5.9 4.0-6.0 Oct 27, 2024 10:29 AM [facility] VITAMIN D, 25-HYDROXY SERUM Specimen Type: SE RUM No comment entered. Ordering Provider: PERFECTO BOLES Report Released Date/Time: Oct 27, 2024 10:25 AM Reporting Lab: [facility] [address] [facility] [address] Performing Lab: [facility] [address] [facility] [address] VITAMIN D, 25-HYDROXY 24.1 ng/mL L 30-96 Oct 27, 2024 10:29 AM [facility] PT/INR NEW (ST-[place]) PLASMA Specimen Type: PLAS MA No comment entered. Ordering Provider: PERFECTO BOLES Report Released Date/Time: Oct 27, 2024 10:25 AM Reporting Lab: [facility] [address] [place] [address] Performing Lab: [facility] [address] [place] [phone] PROTIME 11.3 s 9.4-12.5 INR VALUE 1.0 {INR} Oct 27, 2024 10:29 AM [facility] COMPREHENSIVE METABOLIC PANEL PLASMA Specimen Type: PLASMA Comment: No hemolysis noted. Ordering Provider: PERFECTO BOLES Report Released Date/Time: Oct 27, 2024 10:25 AM Reporting Lab: [address] [address] Performing Lab: [address] [address] CREATININE 0.99 mg/dL 0.7-1.3 UREA NITROGEN 17.9 [...] 78.0 >60 Oct 27, 2024 10:29 AM [facility] CBC BLOOD Specimen Type: BLOOD No comment entered. Ordering Provider: PERFECTO BOLES Report Released Date/Time: Oct 27, 2024 10:25 AM Reporting Lab: [facility] [address] [place] [phone] Performing Lab: [address] [address] WBC 4.8 10*3/uL 3.6-11.2 RBC 4.34 10*6/uL [...] 0.60 BASOPHILS, ABSOLUTE 0.03 10*3/uL 0.00-0. 20 Social History: Smoking Status (Most current) and Tobacco Use (All prior to encounter date) This section includes the most current, and the historical, smoking and tobacco- related health factors from the [place] facility where the Encounter took place. Current Smoking Status This section includes the most current smoking, or tobacco-related health factor, from the [place] facility where the Encounter took place. Date/Time Current Smoking Status Comment Janet ity Aug 09, 2024 09:30 AM VA-TOBACCO USE FOR [facility] [employer] [facility] Tobacco Use History This section includes a history of the smoking, or tobacco-related health factors, that were collected on or before the date of the Encounter. The data comes from the [place] facility where the Encounter took place. Date/Time Smoking Status/Tobacco Use Comment F [place] Aug 09, 2024 09:30 AM VA-TOBACCO USE FOR [employer] [facility] Advance Directives: All historical and current Section Date Range: From patient's date of to the date document was created. This section includes ALL of a patient's completed or amended [place] Advance and Rescinded Directives. The entries below indicate that a directive exists for the patient, but an actual copy is not included with this document. The data comes from all [place] facilities. Date Advance Directives Provider Source Jun 12, 2016 ADVANCE DIRECTIVE [facility] December 24, 2011 ADVANCE DIRECTIVE DISCUSSION TOMMY VAZQUEZ [facility] Radiology Reports: +/- 30 days of [...] the Encounter. The data comes from all [place] treatment facilities. Date/Time Radiology Report Provider Source Nov 18, 2024 02:12 PM KNEE,RIGHT,1 OR 2 VIEWS: JOYCELYN SEPULVEDA [id number] -1945 M Exm Date: NOV 18, 2024@14:12 Req Phys: YOVANI DUNN Loc: 5C U [facility]/11-19-2024@07:05 Img Loc: -MAIN RADIOLOGY SUITE Service: Unknown [address] [address] (Case [id number] COMPLETE) KNEE,RIGHT,1 OR 2 VIEWS (RAD Detailed) CPT:47720 Proc Modifiers : OR, RIGHT, AP & LAT Reason for Study: postop in OR R TKA Clinical History: Do films need to be ortho templated printed? No Report Status: Verified Date Reported: NOV 19, 2024 Date Verified: NOV 19, 2024 Automobile Rental Agent E-Sig:/ES/Kuldip Decker MD Report: FINDINGS: Right knee replacement is noted and position appears satisfactory. Impression: Right knee replacement shows satisfactory position. Primary Interpreting Staff: Kuldip Decker MD, Radiologist (Automobile Rental Agent) /QMB KULDIP DECKER [facility] Nov 01, 2024 09:58 AM NM MYOCARDIAL P SP ECT STRESS/REST-P: JOYCELYN SEPULVEDA [id number] -1945 M Exm Date: NOV 01, 2024@09:58 Req Phys: SUSANNA HILLS Loc: -CARDIO E-CONSULT (Req'g Loc Img Loc: -NUCLEAR MEDICINE Service: Unknown [address] [address] (Case [id number] COMPLETE) NM MYOCARDIAL PERF SPECT STRESS/R(NM Detailed) CPT:02789 Reason for Study: Pre-op Assessment' (Case 1429 COMPLETE) TC-99M TETROFOSMIN (MYOVIEW) (NM Detailed) CPT:A9502 (Case 1430 COMPLETE) TC-99M TETROFOSMIN (MYOVIEW), PE(NM Detailed) CPT:A9502 (Case 1431 COMPLETE) NON-HEU TC-99M ADD-ON PER STUDY D(NM Detailed) CPT:Q9969 (Case 1737 COMPLETE) REGADENOSON INJECTION (NM Detailed) CPT:J2785 Clinical History: Pre-op Assessment Report Status: Verified Date Reported: NOV 01, 2024 Date Verified: NOV 01, 2024 Automobile Rental Agent E-Sig:/ES/Brandon Castro MD,PhD Report: PATIENT NAME: JOYCELYN SEPULVEDA CASE #: [id number], [id number], [id number], [id number], [id number] EXAMINATION: Rest/Lexiscan Stress Gated SPECT Myocardial Imaging [...] Radha Proctor MD (Nuclear Medicine resident). I, Brandon Castro, have reviewed the images and report and concur with these findings. Primary Interpreting Staff: Brandon Castro MD,PhD, Nuclear Medicine Physician (Automobile Rental Agent) Primary Interpreting Resident: RADHA PROCTOR MD /asa [facility] Oct 06, 2024 09:49 AM BONE LENGTH STUDY (SCANOGRAM): JOYCELYN SEPULVEDA [id number] -1945 M Exm Date: OCT 06, 2024@09:49 Req Phys: JEANA,ADOLFOTIN A Pat Loc: [facility] PA JEANA (Req'g Loc) Img Loc: [facility] RADIOLOGY Service: Unknown [address] [address] (Case [id number] COMPLETE) BONE LENGTH STUDY (SCANOGRAM) (RAD Detailed) CPT:65300 Reason for Study: Pre op eval for TKA Clinical History: Report Status: Verified Date Reported: OCT 07, 2024 Date Verified: OCT 07, 2024 Automobile Rental Agent E-Sig:/ES/PUNEET CARDOSO MD Report: Nonstandard examination as requested for nonradiological measurement or guidance. Impression: Nonstandard imaging Primary Interpreting Staff: PUNEET CARDOSO MD, Radiologist (Automobile Rental Agent) /PUNEET DE PAZ [facility] Oct 06, 2024 09:49 AM CHEST X-RAY, 2 VIE WS: JOYCELYN SEPULVEDA [id number] -1945 M Exm Date: OCT 06, 2024@09:49 Req Phys: JEANAADOLFOTIN A Pat Loc: [facility] PA JEANA (Req'g Loc) Img Loc: [facility] Service: Unknown [address] [address] (Case [id number] COMPLETE) CHEST X-RAY, 2 VIEWS (RAD Detailed) CPT:76752 Reason for Study: Pre op eval for TKA Clinical History: Report Status: Verified Date Reported: OCT 07, 2024 Date Verified: OCT 07, 2024 Automobile Rental Agent E-Sig:/ES/PUNEET CARDOSO MD Report: PA and lateral [...] Primary Interpreting Staff: PUNEET CARDOSO MD, Radiologist (Automobile Rental Agent) Primary Interpreting Resident: Janny El, Resident /PUNEET CHEN [facility] Pathology Reports: +/- 30 days of the encounter Pathology Reports For cases when an order for pathology services may have been completed prior to the date of the Encounter, the report list includes the Pathology Reports that were completed up to 30 days before dateof the Encounter. For cases when an order for pathology services may have been completed after the date of the Encounter, the report list also includes the Pathology Reports that were completed up to30 days after date of the Encounter. The data comes from all [facility] facilities. Date/Time Pathology Report Provider Source Nov 22, 2024 12:56 PM LR SURGICAL PATHOL OGY REPORT: LOCAL TITLE: LR SURGICAL PATHOLOGY REPORT STANDARD TITLE: PATHOLOGY PROCEDURE NOTE DATE OF NOTE: NOV 22, 2024@12:56:37 ENTRY DATE: NOV 22, 2024@12:56:37 AUTHOR: STUART RIVERS EXP COSIGNER: URGENCY: STATUS: COMPLETED $APHDR - - - - - - - - - - - - - - - - - - - - - - - - - - - - - - - - - - - - - - - - MEDICAL RECORD SURGICAL PATHOLOGY - - - - - - - - - - - - - - - - - - - - - - - - - - - - - - - - - - - - - - - - PATHOLOGY REPORT Accession No. SP [id number] - - - - - - - - - - - - - - - - - - - - - - - - - - - - - - - - - - - - - - - - $TEXT Submitted by: Date obtained: Nov 18, 2024 14:51 - - - - - - - - - - - - - - - - - - - - - - - - - - - - - - - - - - - - - - - - Specimen (Received Nov 18, 2024 15:00): A. RIGHT KNEE BONE - - - - - - - - - - - - - - - - - - - - - - - - - - - - - - - - - - - - - - - - BRIEF CLINICAL HISTORY: - - - - - - - - - - - - - - - - - - - - - - - - - - - - - - - - - - - - - - - - PREOPERATIVE DIAGNOSIS: Right knee osteoarthritis - - - - - - - - - - - - - - - - - - - - - - - - - - - - - - - - - - - - - - - - OPERATIVE FINDINGS: - - - - - - - - - - - - - - - - - - - - - - - - - - - - - - - - - - - - - - - - POSTOPERATIVE DIAGNOSIS: Surgeon/physician: JEFFERSON VITAL =-=-=-=-=-=-=-=-=-=-=-=-=-= -=-=-=-=-=-=-=-=-=-=-=-=-=- =-=-=-=-=-=-=-=-=-=-=-=-= - - - - - - - - - - - - - - - - - - - - - - - - - - - - - - - - - - - - - - - - PATHOLOGY REPORT Accession No. SP [id number] - - - - - - - - - - - - - - - - - - - - - - - - - - - - - - - - - - - - - - - - GROSS DESCRIPTION: ([place], 11-18-2024) The specimen is received without fixative, in a single container, labeled with the patient's name, full SSN # and right knee bone, and consists of multiple irregular pieces of bone, consistent with a knee arthroplasty. Some of the bone is partially surfaced by roughened, light mclaughlin cartilage that shows areas of eburnation. The largest piece of bone is a tibial plateau that measures 10.0 x 6.0 x 2.0 cm. The rest of the material has an aggregate measurement of 11.0 x 10.0 x 3.5 cm for bone fragments and 6.0 x 4.0 x 3.0 cm for soft tissue fragments. Ex Chef sections are submitted, following decalcification in RDO, in two cassettes A1-A2 MICROSCOPIC EXAM: ([place]) Microscopic examination of the sections submitted from right knee bone shows variable loss of articular cartilage with fibrillation and splitting. DIAGNOSIS: RIGHT KNEE BONE, RIGHT TOTAL KNEE ARTHROPLASTY: DEGENERATIVE CHANGES /brianda/ STUART RIVERS Pathologist Signed Nov 22, 2024@12:56 Performing Laboratory: Surgical Pathology Report Performed By: [facility] CLIA# [id number] [address] [address] $FTR - - - - - - - - - - - - - - - - - - - - - - - - - - - - - - - - - - - - - - - - (End of report) STUART RIVERS MD [facility] Date Nov 22, 2024 - - - - - - - - - - - - - - - - - - - - - - - - - - - - - - - - - - - - - - - - JOYCELYN SEPULVEDA STANDARD FORM 515 ID:[id number] SEX:M :1945 AGE: 78 LOC:APFEE PCP: Alondra Bryant /brianda/ STUART IRVERS Pathologist Signed: 11/22/2024 12:56 STUART RIVERS [facility] Encounter Notes: All associated encounter notes This section contains the clinical notes associated to the Encounter. Date/Time Encounter Note(s) Provider Source Oct 26, 2024 09:00 AM AUDIOLOGY E & M NO TE: LOCAL TITLE: JUSTUS SALINAS STANDARD TITLE: AUDIOLOGY E & M NOTE DATE OF NOTE: OCT 26, 2024@09:00 ENTRY DATE: OCT 26, 2024@09:00:34 AUTHOR: ELISA SOLIZ COSIGNER: TRISHA STAUFFER URGENCY: STATUS: COMPLETED SUBJECT: Hearing AUDIO AVNI ST Has ADDENDA Audiogram: Purpose of appointment: audio [x] [place] initiated visit Case history: Otoscopic evaluation revealed clear canal at the right ear and excessive cerumen at the right ear. Due to depth of cerumen placement at the right ear, provided [place] with [facility] with cerumen management handout. [place]'s main complaint is bilateral hearing loss. [place] notices he is turning up the TV louder and still cannot understand. His also notices he asks for repetition often. also uses a CPAP at night and states he cannot hear when his left ear is facing up (while the right is on his pillow). [place] also reports longstanding non-bothersome bilateral tinnitus. [place] uses a walking cane for assistance due to previous stroke. denied any ear pain, pressure, fullness, dizziness/vertigo, history of otosurgery, history of TM perforation, and any recent ear infections. [place] has never had [place]-issued hearing aids before. - has an iPhone. No previous [facility] hearing evaluations on file. -No hearing tests available in [facility]. ++++++++++++++++++++++++++ ++++++++++++++++++++++++++ + RESULTS: RIGHT EAR Audiometry (air and/or bone conduction): WNL sloping to profound sensorineural hearing loss. Hearing thresholds SRT: 30 dB HL WRS: 76% Acoustic Reflexes: Ipsilateral: Absent at 0.5kHz, 1kHz, 2kHz, & 4kHz. Contralateral: Absent at 0.5kHz, 1kHz, 2kHz, & 4kHz. LEFT EAR Audiometry (air and/or bone conduction): WNL sloping to profound sensorineural hearing loss. Hearing thresholds SRT: 25 dB HL WRS: 72% Acoustic Reflexes: Ipsilateral: Present/elevated at 0.5kHz, 1kHz, & 4kHz. Absent at 2kHz. Contralateral: Absent at 0.5kHz, 1kHz, 2kHz, & 4kHz. is a candidate for hearing aids. Counseled [place] regarding degree of loss. Discussed full-time commitment and realistic expectations of hearing aids. HAE to follow. ++++++++++++++++++++++++++ ++++++++++++++++++++++++++ + HAE: Hearing Aid Exam performed today: [x] Binaural Appropriate evaluation of leads to hearing aid order. Ear mold impressions taken, all margins of otoblocks visualized with no gaps prior to impressions taken without incident. Hearing aids will be ordered and appointment requested for fitting. [x] Provider initiated visit [x] New user Discussed aids with to include the following: STYLE: Showed [place] various demo aids in clinic from canal through KAREEM style; [place] prefers RICs BATTERY TYPE: Discussed rechargeable vs disposable batteries; prefers rechargeable. COLOR: Beige to match complexion. CONNECTIVITY: [place] has an iPhone device and is interested in [employer]. MATRIX: 2M chosen based on audiometric threshold. After discussion, [place] and clinician chose: PURE C&G T 7IX KAREEM-R ++++++++++++++++++++++++++ ++++++++++++++++++++++++++ + RECOMMENDATIONS: 1. HAF sched. Program as [automatic - VC - New user - iPhone] Completed by graduate audiology student, Leticia Onofre; The information above has been reviewed by this provider. I am in agreement with the action plan as outlined. /brianda/ ELISA SOLIZ 3rd Year Audiology Doctoral Student Signed: 10/26/2024 11:13 /brianda/ Christiano BENNETT [employer], Surgery Service Cosigned: 10/26/2024 12:08 10/26/2024 ADDENDUM STATUS: COMPLETED Correction: Left ear is clear /brianda/ Christiano BENNETT Staff [employer], Surgery Service Signed: 10/26/2024 12:09 11/04/2024 ADDENDUM STATUS: COMPLETED Hearing aids certified in [place] & prepped for HAF. /brianda/ SUNITA ARRIOLA Staff [employer] SetterCHRISITANO, [facility] Signed: 11/04/2024 15:26 ELISA SOLIZ [facility]
--- OUTSIDE RECORDS SUMMARY | 2024-10-27 08:40 | XMS_ITS ---
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 Name Role Phone KOLE GARY Primary Care [...] Name Patient's Relationship to Policy Wiseman AUNG [facility] (WNR) MEDICARE [facility] (WNR) Aug 03, 2017 [facility] ([facility]) [id number] [phone] FR RAE SEPULVEDA PATIENT HUMANA [facility] (WNR) MEDICARE ADVANTAGE [facility] (WNR) December 01, 2022 [id number] [phone] FR RAE SEPULVEDA PATIENT HUMANA [facility] (WNR) MEDICARE ADVANTAGE [facility] (WNR) December 01, 2022 [id number] [phone] FR COCO ANK PATIENT [employer]MANA MCR (WNR) MEDICARE ADVANTAGE [facility] ( WNR) December 01, 2022 [id number] [phone] FR RAE SEPULVEDA PATIENT HUMANA [facility] (WNR) MEDICARE ADVANTAGE [facility] (WNR) Aug 03, 2021 [id number] [phone] FR RAE SEPULVEDA PATIENT [employer]MANA MCR (WNR) MEDICARE ADVANTAGE MCR (WNR) Aug 03, 2017 [id number] [phone] FR COCO ANK PATIENT [employer]MANA MCR (WNR) MEDICARE ADVANTAGE MCR (WNR) Aug 03, 2017 [id number] [phone] FR RAE SEPULVEDA PATIENT Selected Encounter This section includes the information on record at [place] for the Encounter. Date/Time Encounter Type Encounter Description Reason Provider Source Oct 27, 2024 01:40 PM OFFICE O/P EST HI 40 MIN ORTHO/JOINT SURG ICD-10-CM M17.11 Unilateral primary osteoarthritis, right knee VITAL,GIREESH B IHE Encounter Template Text not used by [place] Assessments - Encounter Diagnoses This section includes the primary and secondary diagnoses documented for the Encounter. Date/Time Primary/Secondary Diagnosis Diagnosis Name Provider Source Nov 01, 2024 05:28 AM PRIMARY Unilateral primary osteoarthritis, right knee VITAL,GIREESH B [facility] Plan of Treatment: Future Appointments (+ 6 months) and Future Tests (+/- 45 days) The Plan of Treatment section includes future care activities for the [facility] [place] [facility] This section includes future appointments and future orders which are active, pending or scheduled. Future Appointments This section includes appointments that were scheduled to occur 6 months from the date of the Encounter, up to a maximum of 20 appointments. The data comes from all [place] treatment facilities. Appointment Date/Time Appointment Type Appointme nt Facility Name Oct 31, 2024 09:30 AM AMBULATORY - MEDICINE [facility] Nov 01, 2024 09:30 AM AMBULATORY - MEDICINE [facility] Nov 01, 2024 10:30 AM AMBULATORY - MEDICINE [facility] Nov 01, 2024 11:00 AM AMBULATORY - SURGERY [facility] Nov 07, 2024 09:30 AM AMBULATORY - MEDICINE [facility] Nov 08, 2024 10:00 AM AMBULATORY - REHAB MEDICIN E [facility] Nov 14, 2024 09:30 AM AMBULATORY - MEDICINE [facility] Nov 18, 2024 08:30 AM AMBULATORY - NONE [facility] Nov 20, 2024 08:00 AM AMBULATORY - NONE [facility] Nov 21, 2024 09:30 AM AMBULATORY - MEDICINE [facility] Nov 28, 2024 09:30 AM AMBULATORY - MEDICINE [facility] Nov 30, 2024 10:00 AM AMBULATORY - MEDICINE [facility] December 05, 2024 09:30 AM AMBULATORY - MEDICINE [facility] December 12, 2024 09:30 AM AMBULATORY - MEDICINE [facility] December 12, 2024 02:00 PM AMBULATORY - REHAB MEDICIN E [facility] December 13, 2024 11:00 AM AMBULATORY - SURGERY [facility] December 14, 2024 10:00 AM AMBULATORY - SURGERY [facility] December 19, 2024 09:30 AM AMBULATORY - MEDICINE [facility] December 19, 2024 11:00 AM AMBULATORY - REHAB MEDICIN E [facility] December 28, 2024 02:45 PM AMBULATORY - MEDICINE [facility] Active, Pending, and Scheduled Orders This section includes a listing of several types of active, pending, and scheduled orders, including clinic medications orders, diagnostic test orders, procedure orders and consult orders; where the start date of the order is 45 days before the date of the Encounter or 45 days after the date of theEncounter. The data comes from all [facility]. Test Date/Time Test Type Test Details Facility Name Oct 27, 2024 12:00 AM Laboratory - Blood Bank Order TYPE & SCREEN - LAB BLOOD SP [facility] Nov 18, 2024 06:00 AM Laboratory - Blood Bank Order TYPE & SCREEN - LAB BLOOD STAT [facility] Lab Results: +/- 30 days of the encounter This section includes the Chemistry and Hematology Lab Results on record with [place] for the patient. Radiology Reports and Pathology Reports are provided separately, in subsequent sections. Lab Results This section contains the Chemistry/Hematology Results that were resulted 30 days before or 30 daysafter the date of the Encounter. Date/Time Source Result Type Result - Unit Interpretation Reference Range Specimen Type Comment Nov 19, 2024 02:24 PM [facility] BASIC METABOLIC PANEL PLASMA Specimen Type: PLASMA Comment: No hemolysis noted. Ordering Provider: BESSY HOYT Report Released Date/Time: Nov 19, 2024 06:00 AM Reporting Lab: [address] [address] Performing Lab: [address] [address] CREATININE 1.16 mg/dL 0.7-1.3 UREA NITROGEN 21.3 mg/dL 9.0-25.0 GLUCOSE 101 mg/dL H 72-99 SODIUM 133 meq/L L 136-145 POTASSIUM 4.4 meq/L 3.5-5 CHLORIDE 100 meq/L 98-107 CARBON DIOXIDE 21 meq/L L 22-31 CALCIUM 9.4 mg/dL 8.4-10.4 EGFR (CKD-EPI 2020) 64.5 >60 Nov 19, 2024 11:54 AM [facility] BASIC METABOLIC PANEL PLASMA Specimen Type: PL ASMA Comment: No hemolysis noted. Ordering Provider: JEFFERSON VITAL Report Released Date/Time: Nov 19, 2024 11:44 AM Reporting Lab: [address] [address] Performing Lab: [address] [address] CREATININE 1.15 mg/dL 0.7-1.3 UREA NITROGEN 23.4 mg/dL 9.0-25.0 GLUCOSE 107 mg/dL H 72-99 SODIUM 132 meq/L L 136-145 POTASSIUM 4.1 meq/L 3.5-5 CHLORIDE 101 meq/L 98-107 CARBON DIOXIDE 23 meq/L 22-31 CALCIUM 9.2 mg/dL 8.4-10.4 EGFR (CKD-EPI 2020) 65.1 >60 Nov 19, 2024 11:54 AM [facility] CBC BLOOD Specimen Type: BLOOD Comment: SCAN OF SLIDE AGREES WITH AUTOMATED DIFF Ordering Provider: JEFFERSON VITAL Report Released Date/Time: Nov 19, 2024 11:44 AM Reporting Lab: [address] [place] [address] Performing Lab: [address] [address] WBC 11.2 10*3/uL 3.6-11.2 RBC 3.49 10*6/uL [...] BASOPHILS, ABSOLUTE 0.02 10*3/uL 0.00-0. 20 Nov 18, 2024 06:00 PM [facility] MRSA SURVL NARES DNA NARES Specimen Type: [...] Nov 18, 2024 03:43 PM Reporting Lab: [address] [address] Performing Lab: [address] [address] MRSA SURVL NARES DNA Negative Negative Nov 16, 2024 08:28 AM [facility] TSH W/ REFLEX FT4 (STL) PLASMA Specimen Type: PLASMA No comment entered. Ordering Provider: ALONDRA BRYANT Report Released Date/Time: Nov 01, 2024 04:02 PM Reporting Lab: [place] [id number] Performing Lab: [place] [address] TSH 1.991 u[IU]/mL 0.47-5 Nov 16, 2024 08:28 AM [facility] BASIC METABOLIC PANEL PLASMA Specimen Type: PL ASMA Comment: No hemolysis noted. Ordering Provider: ALONDRA BRYANT Report Released Date/Time: Nov 01, 2024 04:02 PM Reporting Lab: [address] [address] Performing Lab: [address] [address] CREATININE 1.02 mg/dL 0.7-1.3 UREA NITROGEN 14.7 mg/dL 9.0-25.0 GLUCOSE 98 mg/dL 72-99 SODIUM 134 meq/L L 136-145 POTASSIUM 4.2 meq/L 3.5-5 CHLORIDE 100 meq/L 98-107 CARBON DIOXIDE 24 meq/L 22-31 CALCIUM 9.5 mg/dL 8.4-10.4 EGFR (CKD-EPI 2020) 75.2 >60 Nov 01, 2024 12:05 PM [facility] URINALYSIS (STL-PB) URINE Specimen Type: URIN E No comment entered. Ordering Provider: PERFECTO BOLES Report Released Date/Time: Oct 27, 2024 10:25 AM Reporting Lab: [address] [address] Performing Lab: [address] [address] URINE COLOR Light-Yellow Yellow U.BILIRUBIN Negative mg/dL Negative U.PH 6.5 5.0-8.0 APPEARANCE Clear Clear U.NITRITE Negative mg/dL Negative URN.GLUCOSE Normal mg/dL Negative URN.PROTEIN Negative mg/dL URN.UROBILINOGEN Normal mg/dL Normal URN.BLOOD Negative mg/dL Negative-Trace URN.KETONES Negative mg/dL Negative-Trac e URN.LEUK.EST. Negative mg/dL Negative-Tr sweta URN.SPECIFIC GRAVITY 1.012 Nov 01, 2024 12:05 PM [facility] BASIC METABOLIC PANEL PLASMA Specimen Type: PL ASMA Comment: No hemolysis noted. Ordering Provider: ANDER LONGO Report Released Date/Time: Nov 01, 2024 11:45 AM Reporting Lab: [facility] [address] [facility] [address] Performing Lab: [address] [address] CREATININE 1.03 mg/dL 0.7-1.3 UREA NITROGEN 16.5 mg/dL 9.0-25.0 GLUCOSE 93 mg/dL 72-99 SODIUM 129 meq/L L 136-145 POTASSIUM 3.6 meq/L 3.5-5 CHLORIDE 98 meq/L 98-107 CARBON DIOXIDE 23 meq/L 22-31 CALCIUM 8.7 mg/dL 8.4-10.4 EGFR (CKD-EPI 2020) 74.4 >60 Nov 01, 2024 12:05 PM [facility] URINE DRUG SCREEN (STL) URINE Specimen Type: URINE Comment: The cut-off value for Fentanyl was laboratory developed and its performance characteristics confirmed by the [facility] laboratory thru method comparison with reference laboratory and medication chart review. The laboratory is regulated under CLIA as qualified to perform high-complexity testing. Fentanyl is used for clinical purposes in conjunction with other laboratory tests. Ordering Provider: PERFECTO BOLES Report Released Date/Time: Oct 27, 2024 10:25 AM Reporting Lab: [facility] [address] [facility] [address] Performing Lab: [facility] [address] [facility] [address] ETHANOL <10 mg/dL 0-9 AMPHET/METHAMPHETAMINE Negative ng/mL COCAINE METABOLITES Negative ng/mL BENZODIAZEPINES (STL) Negative ng/mL CANNABINOIDS Negative ng/mL METHADONE Negative ng/mL OPIATES Negative ng/mL CREATININE URINE/OTHERS 68.8 mg/dL 63-16 6 OXYCODONE (NZYST-NXW-PU) Negative ng/mL BUPRENORPHINE (STL-PB-MA) Negative ng/mL FENTANYL (STL) Negative ng/mL Oct 27, 2024 10:29 AM [facility] HGA1C BLOOD Specimen Type: BLOOD No comment entered. Ordering Provider: PERFECTO BOLES Report Released Date/Time: Oct 27, 2024 10:25 AM Reporting Lab: [facility] [address] [facility] [address] Performing Lab: [facility] [address] [place] [address] HGA1C 5.9 4.0-6.0 Oct 27, 2024 10:29 AM [facility] VITAMIN D, 25-HYDROXY SERUM Specimen Type: SE RUM No comment entered. Ordering Provider: PERFECTO BOLES Report Released Date/Time: Oct 27, 2024 10:25 AM Reporting Lab: [facility] [address] [facility] [address] Performing Lab: [facility] [address] [facility] [address] VITAMIN D, 25-HYDROXY 24.1 ng/mL L 30-96 Oct 27, 2024 10:29 AM [facility] PT/INR NEW (STL-MA) PLASMA Specimen Type: PLAS MA No comment entered. Ordering Provider: PERFECTO BOLES Report Released Date/Time: Oct 27, 2024 10:25 AM Reporting Lab: [facility] [address] [facility] [address] Performing Lab: [facility] [address] [facility] [address] PROTIME 11.3 s 9.4-12.5 INR VALUE 1.0 {INR} Oct 27, 2024 10:29 AM [facility] COMPREHENSIVE METABOLIC PANEL PLASMA Specimen Type: PLASMA Comment: No hemolysis noted. Ordering Provider: WEHKING,PERFECTO W Report Released Date/Time: Oct 27, 2024 10:25 AM Reporting Lab: [facility] [address] [facility] [address] Performing Lab: [address] [address] CREATININE 0.99 mg/dL 0.7-1.3 UREA NITROGEN 17.9 [...] 78.0 >60 Oct 27, 2024 10:29 AM [facility] CBC BLOOD Specimen Type: BLOOD No comment entered. Ordering Provider: PERFECTO BOLES Report Released Date/Time: Oct 27, 2024 10:25 AM Reporting Lab: [facility] [address] [facility] [address] Performing Lab: [address] [address] WBC 4.8 10*3/uL 3.6-11.2 RBC 4.34 10*6/uL [...] DIRECTIVE DISCUSSION TOMMY VAZQUEZ [facility] Radiology Reports: +/- 30 days [...] the Encounter. The data comes from all [place] treatment facilities. Date/Time Radiology Report Provider Source Nov 18, 2024 02:12 PM KNEE,RIGHT,1 OR 2 VIEWS: ZEESHAN SEPULVEDA [id number] -1945 M Exm Date: NOV 18, 2024@14:12 Req Phys: YOVANI DUNN Pat Loc: 5C PCU OE-[facility]/11-19-2024@07:05 Img Loc: [facility]-MAIN RADIOLOGY SUITE Service: [facility], [address] [address] (Case [id number] COMPLETE) KNEE,RIGHT,1 OR 2 VIEWS (RAD Detailed) CPT:25520 Proc Modifiers : OR, RIGHT, AP & LAT Reason for Study: postop in OR R TKA Clinical History: Do films need to be ortho templated printed? No Report Status: Verified Date Reported: NOV 19, 2024 Date Verified: NOV 19, 2024 Vegetable Specker E-Sig:/ES/Kuldip Decker MD Report: FINDINGS: Right knee replacement is noted and position appears satisfactory. Impression: Right knee replacement shows satisfactory position. Primary Interpreting Staff: Kuldip Decker MD, Radiologist (Vegetable Specker) /QMB KULDIP DECKER [facility] Nov 01, 2024 09:58 AM NM MYOCARDIAL P SP ECT STRESS/REST-P: ZEESHAN SEPULVEDA [id number] -1945 M Exm Date: NOV 01, 2024@09:58 Req Phys: SUSANNA HILLS Loc: -CARDIO E-CONSULT (Req'g Loc Img Loc: -NUCLEAR MEDICINE Service: [address] [address] (Case [id number] COMPLETE) NM MYOCARDIAL PERF SPECT STRESS/R(NM Detailed) CPT:30248 Reason for Study: Pre-op Assessment' (Case 1429 COMPLETE) TC-99M TETROFOSMIN (MYOVIEW) (NM Detailed) CPT:A9502 (Case 1430 COMPLETE) TC-99M TETROFOSMIN (MYOVIEW), PE(NM Detailed) CPT:A9502 (Case 1431 COMPLETE) NON-HEU TC-99M ADD-ON PER STUDY D(NM Detailed) CPT:Q9969 (Case 1737 COMPLETE) REGADENOSON INJECTION (NM Detailed) CPT:J2785 Clinical History: Pre-op Assessment Report Status: Verified Date Reported: NOV 01, 2024 Date Verified: NOV 01, 2024 Vegetable Specker E-Sig:/ES/Bon Castro MD,PhD Report: PATIENT NAME: ZEESHAN SEPULVEDA CASE #: [id number], [id number], [id number], [id number] EXAMINATION: Rest/Lexiscan Stress Gated SPECT Myocardial Imaging [...] Staff: Bon Castro MD,PhD, Nuclear Medicine Physician (Vegetable Specker) Primary Interpreting Resident: RADHA PROCTOR MD /BON Ruelas [facility] Oct 06, 2024 09:49 AM BONE LENGTH STUDY (SCANOGRAM): ZEESHAN SEPULVEDA [id number] -1945 M Ex Date: OCT 06, 2024@09:49 Req Phys: SUSANNA HILLS Pat Loc: RYAN-ORTHO DEJA HILLS (Req'g Loc) Img Loc: RYAN-RYAN RADIOLOGY Service: [facility], [address] [address] (Case [id number] COMPLETE) BONE LENGTH STUDY (SCANOGRAM) (RAD Detailed) CPT:99299 Reason for Study: Pre op eval for TKA Clinical History: Report Status: Verified Date Reported: OCT 07, 2024 Date Verified: OCT 07, 2024 Vegetable Specker E-Sig:/ES/PUNEET CARDOSO MD Report: Nonstandard examination as requested for nonradiological measurement or guidance. Impression: Nonstandard imaging Primary Interpreting Staff: PUNEET CARDSOO MD, Radiologist (Vegetable Specker) /PUNEET DE PAZ [facility] Oct 06, 2024 09:49 AM CHEST X-RAY, 2 VIE WS: ZEESHAN SEPULVEDA [id number] -1945 M Exm Date: OCT 06, 2024@09:49 Req Phys: SUSANNA HILLS Pat Loc: RYAN-ORTHO PA JEANA (Req'g Loc) Img Loc: RYAN-RYAN RADIOLOGY Service: [address] [address] (Case [id number] COMPLETE) CHEST X-RAY, 2 VIEWS (RAD Detailed) CPT:09362 Reason for Study: Pre op eval for TKA Clinical History: Report Status: Verified Date Reported: OCT 07, 2024 Date Verified: OCT 07, 2024 Vegetable Specker E-Sig:/ES/PUNEET CARDOSO MD Report: PA and lateral chest x-ray Comparison: none Heart: No significant pathology Lungs: No significant pathology. Mediastinum: No significant pathology Pulmonary vasculature: Within normal limits. Other: The thoracic aorta is atherosclerotic. Degenerative changes of the thoracic spine. Impression: No acute disease I, Puneet aCrdoso, have reviewed the images and report and concur with these findings. Primary Interpreting Staff: PUNEET CARDOSO MD, Radiologist (Vegetable Specker) Primary Interpreting Resident: Janny El, Resident / PUNEET CARDOSO [facility] Pathology Reports: +/- 30 days of [...] the Encounter. The data comes from all [place] treatment facilities. Date/Time Pathology Report Provider Source Nov [...] x 3.0 cm for soft tissue fragments. Investment Fund Manager sections are submitted, following decalcification in RDO, in two cassettes A1-A2 MICROSCOPIC EXAM: ([place]) Microscopic examination of the sections submitted from right knee bone shows variable loss of articular cartilage with fibrillation and splitting. DIAGNOSIS: RIGHT KNEE BONE, RIGHT TOTAL KNEE ARTHROPLASTY: DEGENERATIVE CHANGES /es/ STUART RIVERS Pathologist Signed Nov 22, 2024@12:56 Performing Laboratory: Surgical Pathology Report Performed By: [facility], [facility] CLIA# [id number] [address] [place] [address] [place] [address] $FTR - - - - - - - - - - - - - - - - - - - - - - - - - - - - - - - - - - - - - - - - (End of report) STUART RIVERS MD [facility] Date Nov 22, 2024 - - - - - - - - - - - - - - - - - - - - - - - - - - - - - - - - - - - - - - - - ZEESHAN SEPULVEDA STANDARD FORM 515 ID:[id number] SEX:M :1945 AGE: 78 LOC:DARELLFEE PCP: Alondra Bryant /brianda/ STUART RIVERS Pathologist Signed: 11/22/2024 12:56 STUART RIVERS [facility] Encounter Notes: All associated encounter notes This section contains the clinical notes associated to the Encounter. Date/Time Encounter Note(s) Provider Source Oct 27, 2024 11:35 AM PHYSICIAN LETTERS: LOCAL TITLE: ORTHOPEDIC SURGERY PHYSICIAN LETTER STL STANDARD TITLE: PHYSICIAN LETTERS DATE OF NOTE: OCT 27, 2024@11:35 ENTRY DATE: OCT 27, 2024@11:35:17 AUTHOR: PERFECTO BOLES EXP COSIGNER: URGENCY: STATUS: COMPLETED [facility] [address] [place] [address] OCT 27, 2024 ZEESHAN SEPULVEDA [id number] [place], [place] [address] Dear Zeeshan Sepulveda, Thank you for choosing the [facility] as your primary choice for health care. Our mission is to honor [employer] by providing exceptional health care that improves your health and well-being. As discussed at your appointment, your vitamin D level was tested. Your level was 24.6 , which is low. (NORMAL 30-96) I have ordered some medication that will be mailed to you from the pharmacy: Ergocalciferol 50,000 units: one capsule every week (Thursday) for 12 weeks. Calcium carbonate 1000 mg: twice daily for 12 weeks. Any questions or concerns, please call [phone] extension [phone]. Sincerely, PERFECTO BOLES [facility] Advanced Practice Nurse, Orthopedics ZEESHAN SEPULVEDA [facility] Oct 27, 2024 11:00 AM PHYSICIAN LETTERS: LOCAL TITLE: ORTHOPEDIC SURGERY PHYSICIAN LETTER STL STANDARD TITLE: PHYSICIAN LETTERS DATE OF NOTE: OCT 27, 2024@11:00 ENTRY DATE: OCT 27, 2024@11:01:05 AUTHOR: PERFECTO BOLES EXP COSIGNER: URGENCY: STATUS: COMPLETED [facility] [address] [place] [address] OCT 27, 2024 ZEESHAN SEPULVEDA [address] [place], [place] [address] Dear Zeeshan Sepulveda, This letter is confirmation of our conversation today in regards to your surgery that has been scheduled in the orthopedic department. Please be aware there is a chance that your surgery will need to be cancelled if COVID pandemic surges. Your surgery : RIGHT TOTAL KNEE ARTHROPLASTY * Surgery 11/18/2024 0830 am arrival (TIME SUBJECT TO CHANGE) [facility] North ([facility]). ( You will enter the hospital and then go to [facility] [address] ([facility]). Take main elevator [address] A to 4th floor, turn Left) DUE TO TRAUMA /EMERGENCIES: ORDER OF THE SURGERIES ARE DETERMINED THAT DAY. PLEASE PLAN ON SPENDINDG A MAJORITY OF THE DAY AT THE HOSPITAL. ELECTIVE SURGERIES MAY ALSO BE CANCELLED THE DAY OF SURGERY, DEPENDING ON TRAUMA/EMERGENCY SURGERIES THAT ARISE. * PREOPERATIVE JOINT CLASS: THEY WILL CALL AND SCHEDULE Take main elevator [address] to the 3rd floor, turn left 3 North. Physical therapy may call and schedule a specific time. * POST-OPERATIVE APPOINTMENTS: [facility], SECOND FLOOR ORTHOPEDICS 10/14/2024 1000 AM [facility], FIRST FLOOR SURGICAL CLINIC 02/23/2025 1000 AM (arrive early and obtain xray) HOLD/DO NOT TAKE: Ibuprofen, Motrin, Meloxicam, Naprosyn, Naproxen, Diclofenac for 7 days. *If you take any medication for diabetes: half the dose/s day before and hold the day of surgery. *5 DAYS PRIOR TO SURGERY: You should start using the antibacterial soap and nasal ointment sent to you -Wash entire body from neck down with chlorhexidine wash for 5 consecutive days before surgery. Make sure you place clean sheets to bed the 5th day ( day before surgery). -Use Mupirocin twice daily into each nostril using a separate Q-tip for each nostril *DO NOT eat or drink anything after midnight the night before surgery. This includes: no hard candy, gum, or chewing tobacco AM of surgery. MORNING OF SURGERY: *DO TAKE: your normal morning medications with a sip of water. *DO TAKE: these medications: Atorvastatin *HOLD/DO NOT TAKE: Lisinopril OR Hydrochlorithiazidethe morning of surgery *DO wash entire body from neck down with chlorhexidine wash for 5 consecutive days before surgery. Make sure you place clean sheets to bed the 5th day ( day before surgery). *DO brush your teeth and spit the morning of surgery. *If you wear CPAP or BPAP while sleeping, bring machine and accessories with you to the hospital. RESTRICTIONS AFTER SURGERY: NO DRIVING FOR 6 WEEKS. FURTHER RESTRICTIONS WILL BE LISTED ON DISCHARGE PAPERWORK TYPICALLY, PATIENTS MAY TAKE UP TO 12 WEEKS OF LEAVE FROM WORK, CONTIGENT UPON THEIR JOB RESPONSIBILITIES. We look forward to providing you with excellent care. Please do not hesitate to call with any questions or concerns: [phone] option #1 then option # 2. If you have to leave a message or voicemail, please leave your name, the spelling of your name , your last four, and a number that you can be reached. If you need to cancel your surgery, please call as soon as possible. We ask for at least a seven day notice. YOU CANNOT DRIVE AFTER SURGERY. PLEASE HAVE TRANSPORTATION ARRANGED. FOR SAFETY REASONS, PLEASE ARRANGE FOR SOMEBODY STAY WITH YOU FOR THE FIRST 7 DAYS AFTER SURGERY. YOUR ELECTIVE SURGERY WILL BE CANCELLED IF SOMEBODY CANNOT BE IDENTIFIED. Sincerely, PERFECTO BOLES ANP- Advanced Practice Nurse, Orthopedics ZEESHAN SEPULVEDA [facility] Oct 27, 2024 10:13 AM H & P NOTE: LOCAL TITLE: HISTORY AND PHYSICAL EXAMINATION [facility] STANDARD TITLE: H & P NOTE DATE OF NOTE: OCT 27, 2024@10:13 ENTRY DATE: OCT 27, 2024@10:13:35 AUTHOR: JEFFERSON VITAL EXP COSIGNER: URGENCY: STATUS: COMPLETED ORTHOPAEDIC JOINT RECONSTRUCTION NEW PATIENT VISIT CHIEF COMPLAINT: Right knee pain HISTORY OF PRESENT ILLNESS: The patient is a 78 YEAR OLD MALE with a PMHx of hypertension, previous stroke with residual left-sided deficits who presents with a longstanding history of right knee pain. Patient notes that he had the cartilage partially removed in his right knee in the 1970s. He is worn a brace for the majority of the last few years. Patient does note that he does not ambulate that much, only around the house due to fear of falling. Outside the house he uses a walker and quad cane. Patient reports that the knee does give out on him 1-2 times a day. He reports the pain predominantly laterally and posteriorly. He has failed all conservative management. He notes that the stroke was 15 years ago followed by 5 years of rehab. Patient does do some exercises at home, including a recumbent bike. Denies CP, SOB, N/V, FRANKLIN, LOC, or other systemic/constitutional issues at this time. Patient denies numbness or paresthesia in the affected extremity. PAST MEDICAL HISTORY: 1) HTN - Hypertension ([facility] [id number]) 2) Hyperlipidemia ([facility] [id number]) 3) Sleep apnoea comment: using bipap 4) H/O: Stroke ([facility] [id number]) comment: L footdrop; wears brace; L leg weaker than R comment: using straight or quad cane 5) B-cell lymphoma comment: followed by hematology 6) Anxiety ([facility] [id number]) 7) Depression ([facility] [id number]) 8) Chronic kidney disease 9) Pes planus 10) Chronic post-traumatic stress disorder 11) Exposure to potentially hazardous substance 12) History of malignant neoplasm of skin PAST SURGICAL HISTORY: Denies. MEDICATIONS: Active Outpatient Medications (including Supplies): Active Outpatient Medications Status ==== ========= = 1) ATORVASTATIN CALCIUM 80MG TAB TAKE ONE-HALF [...] MOUTH AT ACTIVE BEDTIME Indication: FOR SLEEP ALLERGIES: Patient has answered NKA SOCIAL HISTORY: The patient denies tobacco, alcohol, or illicit drug use. Occupation: Retired. Denies any history of blood clots or blood thinners. Does take a baby aspirin daily. FAMILY HISTORY: Non-contributory REVIEW OF SYSTEMS: A 12-point review of systems was performed and is otherwise negative except as stated in the H&P. PHYSICAL EXAM: Temp: 97.5 F [36.4 C] (10/27/2024 09:33) Pulse: 67 (10/27/2024 09:33) BP: 143/77 (10/27/2024 09:33) RESP: 18 (10/27/2024 09:33) Pain: 0 (08/15/2024 10:13) Height: 67 in [170.2 cm] (10/27/2024 09:33) Weight: 207.2 lb [93.98 kg] (10/27/2024 09:33) BMI:32.5 GENERAL: Patient is AOx3 to person, place, time and situation. HEAD: NCAT. PULM: Normal respiratory effort, even chest rise. SKIN: Intact. Warm and dry. MSK: As noted below. Right knee Patient walks with an antalgic gait. Examination of the knee demonstrates skin is intact. There is mild effusion. The patient has range of motion from 5-105 degrees. The knee is stable to anterior and posterior stress at full extension and 90 degrees of flexion. The knee is stable to varus and valgus stress at full extension, mid-flexion, and 90 degrees of flexion. The patient is tender to palpation at lateral joint line. The patient denies any pain in the groin with passive range of motion of the hips. 2+ DP/PT pulses. Toes wwp. Fires EHL/FHL/TA/GSC. SILT S/S/SP/DP/T. LABS: CREATININE 1.18 mg/dL 01/05/2024 11:40 HGA1C 5.9 % 01/11/2024 08:27 4.7 10*3/uL (01/11/24 08:27) HGB 13.8 g/dL 01/11/2024 08:27 /41.6 % (01/11/24 08:27) PLT 228 10*3/uL 01/11/2024 08:27 IMAGING STUDIES: The full length standing film and 4 radiographic views of the right knee independently interpreted by me demonstrate osteoarthritis with joint space narrowing, subchondral cyst formation, sclerosis and osteophyte formation. The full length standing film demonstrates the patient has a moderate valgus deformity of the limb and there is no evidence of osteoarthritis of the hip. IMPRESSION: 78 year old Male with severe osteoarthritis of the right knee with valgus deformity. PLAN: We had a lengthy discussion with the patient regarding the condition and treatment options. After failing a nonoperative treatment program, the patient is a candidate for a right total knee arthroplasty. We explained in detail the risks and benefits of this procedure, which the patient understood. They elected to proceed with a total knee arthroplasty and will meet with our team to schedule a date for surgery. - Right total knee arthroplasty with v/v constrained. - Consent DOS - 11/18/24 - Dental completed - Pending stress test 11/01. /brianda/ [facility] Signed: 11/01/2024 05:28 [facility]
--- OUTSIDE RECORDS SUMMARY | 2024-11-01 05:30 | XMS_ITS ---
Author Name [facility] [place] [facility] [place] Address [address] [place] [address] Care Team Providers Care Franchise Sales Representative Name Role Phone KOLE GARY Primary Care [...] Patient's Relationship to Policy Wiseman AUNG ZENA [facility] (WNR) MEDICARE ADVANTAGE [facility] (WNR) Aug 03, 2017 [facility] (WN) [id number] [phone] FR RAE SEPULVEDA PATIENT [facility] (WNR) MEDICARE ADVANTAGE [facility] (WNR) December 01, 2022 [id number] [phone] FR RAE SEPULVEDA PATIENT [facility] (WNR) MEDICARE ADVANTAGE [facility] (WNR) December 01, 2022 [id number] [phone] [id number] FR RAE SEPULVEDA PATIENT [facility] (WNR) MEDICARE ADVANTAGE [facility] ( WNR) December 01, 2022 [id number] [phone] FR RAE SEPULVEDA PATIENT [facility] (WNR) MEDICARE ADVANTAGE [facility] (WNR) Aug 03, 2021 [id number] [phone] FR RAE SEPULVEDA PATIENT [facility] (WNR) MEDICARE ADVANTAGE MCR (WNR) Aug 03, 2017 [id number] [phone] FR RAE SEPULVEDA PATIENT [facility] (WNR) MEDICARE ADVANTAGE MCR (WNR) Aug 03, 2017 [id number] [phone] FR RAE SEPULVEDA PATIENT Selected Encounter This section includes the information on [place] at [place] for the Encounter. Date/Time Encounter Type Encounter Description Reason Provider Source Nov 01, 2024 10:30 AM OFF/OP CNSLTJ NEW/EST MOD 40 CARDIAC STRESS TEST ICD-10-CM R07.9 Chest pain, unspecified LEONIDES,JAKUB IHE Encounter Template Text not used by [place] Assessments - Encounter Diagnoses This section includes the primary and secondary diagnoses documented for the Encounter. Date/Time Primary/Secondary Diagnosis Diagnosis Name Provider Source Nov 01, 2024 11:19 AM PRIMARY Chest pain, unspecified HALINA OVALLES [facility] Plan of Treatment: Future Appointments (+ 6 months) and Future Tests (+/- 45 days) The Plan of Treatment section includes future care activities for the patient from all [place] [facility]. This section includes future appointments and future orders which are active, pending or scheduled. Future Appointments This section includes appointments that were scheduled to occur 6 months from the date of the Encounter, up to a maximum of 20 appointments. The data comes from all [place] treatment facilities. Appointment Date/Time Appointment Type Appointme nt Facility Name Nov 07, 2024 09:30 AM AMBULATORY - MEDICINE [facility] Nov 08, 2024 10:00 AM AMBULATORY - REHAB MEDICIN E [facility] Nov 14, 2024 09:30 AM [facility] Nov 18, 2024 08:30 AM AMBULATORY - NONE [facility] Nov 20, 2024 08:00 AM AM[facility]ORY - NONE [facility] Nov 21, 2024 09:30 AM [facility] Nov 28, 2024 09:30 AM AMBULATORY - MEDICINE [facility] Nov 30, 2024 10:00 AM AMBULATORY - MEDICINE [facility] December 05, 2024 09:30 AM AMBULATORY - MEDICINE [facility] December 12, 2024 09:30 AM AMBULATORY - MEDICINE [facility] December 12, 2024 02:00 PM AMBULATORY - REHAB MEDICIN E [facility] December 13, 2024 11:00 AM AMBULATORY - SURGERY [facility] December 14, 2024 10:00 AM AMBULATORY - SURGERY [facility] December 19, 2024 09:30 AM AMBULATORY - MEDICINE [facility] December 19, 2024 11:00 AM AMBULATORY - REHAB MEDICIN E [facility] December 28, 2024 02:45 PM AMBULATORY - MEDICINE [facility] Jan 02, 2025 10:30 AM AMBULATORY - REHAB MEDICIN E [facility] Jan 09, 2025 09:30 AM AMBULATORY - MEDICINE [facility] Jan 09, 2025 10:30 AM AMBULATORY - NONE . [facility] Jan 10, 2025 09:00 AM AMBULATORY - MEDICINE [facility] Active, Pending, and Scheduled Orders This section includes a listing of several types of active, pending, and scheduled orders, including clinic medications orders, diagnostic test orders, procedure orders and consult orders; where the start date of the order is 45 days before the date of the Encounter or 45 days after the date of theEncounter. The data comes from all [facility]. Test Date/Time Test Type Test Details Facility Name Oct 27, 2024 12:00 AM Laboratory - Blood Bank Order TYPE & SCREEN - LAB BLOOD SP [facility] Nov 18, 2024 06:00 AM Laboratory - Blood Bank Order TYPE & SCREEN - LAB BLOOD STAT [facility] Lab Results: +/- 30 days of [...] Type Comment Nov 19, 2024 02:24 PM [facility] BASIC METABOLIC PANEL PLASMA Specimen Type: PLASMA Comment: No hemolysis noted. Ordering Provider: BESSY HOYT Report Released Date/Time: Nov 19, 2024 06:00 AM Reporting Lab: [address] [address] Performing Lab: [address] [address] CREATININE 1.16 mg/dL 0.7-1.3 UREA NITROGEN 21.3 mg/dL 9.0-25.0 GLUCOSE 101 mg/dL H 72-99 SODIUM 133 meq/L L 136-145 POTASSIUM 4.4 meq/L 3.5-5 CHLORIDE 100 meq/L 98-107 CARBON DIOXIDE 21 meq/L L 22-31 CALCIUM 9.4 mg/dL 8.4-10.4 EGFR (CKD-EPI 2020) 64.5 >60 Nov 19, 2024 11:54 AM [facility] BASIC METABOLIC PANEL PLASMA Specimen Type: PL ASMA Comment: No hemolysis noted. Ordering Provider: JEFFERSON VITAL Report Released Date/Time: Nov 19, 2024 11:44 AM Reporting Lab: [address] [address] Performing Lab: [address] [address] CREATININE 1.15 mg/dL 0.7-1.3 UREA NITROGEN 23.4 mg/dL 9.0-25.0 GLUCOSE 107 mg/dL H 72-99 SODIUM 132 meq/L L 136-145 POTASSIUM 4.1 meq/L 3.5-5 CHLORIDE 101 meq/L 98-107 CARBON DIOXIDE 23 meq/L 22-31 CALCIUM 9.2 mg/dL 8.4-10.4 EGFR (CKD-EPI 2020) 65.1 >60 Nov 19, 2024 11:54 AM [facility] CBC BLOOD Specimen Type: BLOOD Comment: SCAN OF SLIDE AGREES WITH AUTOMATED DIFF Ordering Provider: JEFFERSON VITAL Report Released Date/Time: Nov 19, 2024 11:44 AM Reporting Lab: [address] [address] Performing Lab: [address] [address] WBC 11.2 10*3/uL 3.6-11.2 RBC 3.49 10*6/uL [...] 0.00-0. 20 Nov 18, 2024 06:00 PM [facility] MRSA SURVL NARES DNA NARES Specimen [...] Nov 18, 2024 03:43 PM Reporting Lab: [address] [address] Performing Lab: [address] [place] [address] MRSA SURVL NARES DNA Negative Negative Nov 16, 2024 08:28 AM [facility] TSH W/ REFLEX FT4 (STL) PLASMA Specimen Type: PLASMA No comment entered. Ordering Provider: ALONDRA BRYANT Report Released Date/Time: Nov 01, 2024 04:02 PM Reporting Lab: [address] [address] Performing Lab: [address] [address] TSH 1.991 u[IU]/mL 0.47-5 Nov 16, 2024 08:28 AM [facility] BASIC METABOLIC PANEL PLASMA Specimen Type: PL ASMA Comment: No hemolysis noted. Ordering Provider: ALONDRA BRYANT Report Released Date/Time: Nov 01, 2024 04:02 PM Reporting Lab: [address] [address] Performing Lab: [address] [address] CREATININE 1.02 mg/dL 0.7-1.3 UREA NITROGEN 14.7 mg/dL 9.0-25.0 GLUCOSE 98 mg/dL 72-99 SODIUM 134 meq/L L 136-145 POTASSIUM 4.2 meq/L 3.5-5 CHLORIDE 100 meq/L 98-107 CARBON DIOXIDE 24 meq/L 22-31 CALCIUM 9.5 mg/dL 8.4-10.4 EGFR (CKD-EPI 2020) 75.2 >60 Nov 01, 2024 12:05 PM [facility] URINALYSIS (L-PB) URINE Specimen Type: URIN E No comment entered. Ordering Provider: PERFECTO BOLES Report Released Date/Time: Oct 27, 2024 10:25 AM Reporting Lab: [address] [address] Performing Lab: [address] [address] URINE COLOR Light-Yellow Yellow U.BILIRUBIN Negative mg/dL Negative U.PH 6.5 5.0-8.0 APPEARANCE Clear Clear U.NITRITE Negative mg/dL Negative URN.GLUCOSE Normal mg/dL Negative URN.PROTEIN Negative mg/dL URN.UROBILINOGEN Normal mg/dL Normal URN.BLOOD Negative mg/dL Negative-Trace URN.KETONES Negative mg/dL Negative-Trac e URN.LEUK.EST. Negative mg/dL Negative-Tr sweta URN.SPECIFIC GRAVITY 1.012 Nov 01, 2024 12:05 PM [facility] BASIC METABOLIC PANEL PLASMA Specimen Type: PL ASMA Comment: No hemolysis noted. Ordering Provider: ANDER LONGO Report Released Date/Time: Nov 01, 2024 11:45 AM Reporting Lab: [facility] [address] [facility] [address] Performing Lab: [address] [address] CREATININE 1.03 mg/dL 0.7-1.3 UREA NITROGEN 16.5 mg/dL 9.0-25.0 GLUCOSE 93 mg/dL 72-99 SODIUM 129 meq/L L 136-145 POTASSIUM 3.6 meq/L 3.5-5 CHLORIDE 98 meq/L 98-107 CARBON DIOXIDE 23 meq/L 22-31 CALCIUM 8.7 mg/dL 8.4-10.4 EGFR (CKD-EPI 2020) 74.4 >60 Nov 01, 2024 12:05 PM [facility] URINE DRUG SCREEN (STL) URINE Specimen Type: URINE Comment: The cut-off value for Fentanyl was laboratory developed and its performance characteristics confirmed by the [facility] laboratory thru method comparison with reference laboratory and medication chart review. The laboratory is regulated under CLIA as qualified to perform high-complexity testing. Fentanyl is used for clinical purposes in conjunction with other laboratory tests. Ordering Provider: PERFECTO BOLES Report Released Date/Time: Oct 27, 2024 10:25 AM Reporting Lab: [facility] [address] [facility] [address] Performing Lab: [address] [address] ETHANOL <10 mg/dL 0-9 AMPHET/METHAMPHETAMINE Negative ng/mL COCAINE METABOLITES Negative ng/mL BENZODIAZEPINES (STL) Negative ng/mL CANNABINOIDS Negative ng/mL METHADONE Negative ng/mL OPIATES Negative ng/mL CREATININE URINE/OTHERS 68.8 mg/dL 63-16 6 OXYCODONE (FINXX-EYO-KY) Negative ng/mL BUPRENORPHINE (STL-PB-MA) Negative ng/mL FENTANYL (STL) Negative ng/mL Oct 27, 2024 10:29 AM [facility] HGA1C BLOOD Specimen Type: BLOOD No comment entered. Ordering Provider: PERFECTO BOLES Report Released Date/Time: Oct 27, 2024 10:25 AM Reporting Lab: [facility] [address] [facility] [address] Performing Lab: [address] [address] HGA1C 5.9 4.0-6.0 Oct 27, 2024 10:29 AM [facility] VITAMIN D, 25-HYDROXY SERUM Specimen Type: SE RUM No comment entered. Ordering Provider: PERFECTO BOLES Report Released Date/Time: Oct 27, 2024 10:25 AM Reporting Lab: [facility] [address] [facility] [address] Performing Lab: [facility] [address] [facility] [address] VITAMIN D, 25-HYDROXY 24.1 ng/mL L 30-96 Oct 27, 2024 10:29 AM [facility] PT/INR NEW (STL-MA) PLASMA Specimen Type: PLAS MA No comment entered. Ordering Provider: PERFECTO BOLES Report Released Date/Time: Oct 27, 2024 10:25 AM Reporting Lab: [facility] [address] [place] [address] Performing Lab: [facility] [address] [place] [address] PROTIME 11.3 s 9.4-12.5 INR VALUE 1.0 {INR} Oct 27, 2024 10:29 AM [facility] COMPREHENSIVE METABOLIC PANEL PLASMA Specimen Type: PLASMA Comment: No hemolysis noted. Ordering Provider: PERFECTO BOLES Report Released Date/Time: Oct 27, 2024 10:25 AM Reporting Lab: [address] [address] Performing Lab: [address] [address] CREATININE 0.99 mg/dL 0.7-1.3 UREA NITROGEN 17.9 [...] 78.0 >60 Oct 27, 2024 10:29 AM [facility] CBC BLOOD Specimen Type: BLOOD No comment entered. Ordering Provider: PERFECTO BOLES Report Released Date/Time: Oct 27, 2024 10:25 AM Reporting Lab: [facility] [address] [place] [address] Performing Lab: [address] [address] WBC 4.8 10*3/uL 3.6-11.2 RBC 4.34 10*6/uL [...] 0.60 BASOPHILS, ABSOLUTE 0.03 10*3/uL 0.00-0. 20 Vital Signs: All taken on the encounter date This section contains inpatient and outpatient Vital Signs collected on the date of the Encounter. Date/Time Temperature Pulse Blood Pressure Respiratory Rate SP02 Pain Height Weight Body Mass Index Source Nov 01, 2024 11:11 AM 97.6 62 147/68 16 98 65 205 34 [facility] Advance Directives: All historical and current Section Date Range: From patient's date of to the date document was created. This section includes ALL of a patient's completed or amended [place] Advance and Rescinded Directives. The entries below indicate that a directive exists for the patient, but an actual copy is not included with this document. The data comes from all [place] facilities. Date Advance Directives Provider Source Jun 12, [address] [facility] December 24, 2011 ADVANCE DIRECTIVE DISCUSSION TOMMY VAZQUEZ [facility] Radiology Reports: +/- 30 days of the [...] the Encounter. The data comes from all [place] treatment facilities. Date/Time Radiology Report Provider Source Nov 18, 2024 02:12 PM KNEE,RIGHT,1 OR 2 VIEWS: JOYCELYN SEPULVEDA [id number] -1945 M Exm Date: NOV 18, 2024@14:12 Req Phys: YOVANI DUNN [facility] Loc: 5C PCU -[facility]/11-19-2024@07:05 Img Loc: [facility]-MAIN RADIOLOGY SUITE Service: Unknown [address] [address] (Case [id number] COMPLETE) KNEE,RIGHT,1 OR 2 VIEWS (RAD Detailed) CPT:80257 Proc Modifiers : OR, RIGHT, AP & LAT Reason for Study: postop in OR R TKA Clinical History: Do films need to be ortho templated printed? No Report Status: Verified Date Reported: NOV 19, 2024 Date Verified: NOV 19, 2024 Cinder Snapper E-Sig:/ES/Kuldip Decker MD Report: FINDINGS: Right knee replacement is noted and position appears satisfactory. Impression: Right knee replacement shows satisfactory position. Primary Interpreting Staff: Kuldip Decker MD, Radiologist (Cinder Snapper) /QMB KULDIP DECKER [facility] Nov 01, 2024 09:58 AM NM MYOCARDIAL P SP ECT STRESS/REST-P: JOYCELYN SEPULVEDA [id number] -1945 Ex Date: NOV 01, 2024@09:58 Req Phys: SUSANNA HILLS Loc: [facility]-CARDIO E-CONSULT (Req'g Loc Img Loc: [facility]-NUCLEAR MEDICINE Service: Unknown [address] [address] (Case [id number] COMPLETE) NM MYOCARDIAL PERF SPECT STRESS/R(NM Detailed) CPT:40602 Reason for Study: Pre-op Assessment' (Case 1429 COMPLETE) TC-99M TETROFOSMIN (MYOVIEW) (NM Detailed) CPT:A9502 (Case 1430 COMPLETE) TC-99M TETROFOSMIN (MYOVIEW), PE(NM Detailed) CPT:A9502 (Case 1431 COMPLETE) NON-HEU TC-99M ADD-ON PER STUDY D(NM Detailed) CPT:Q9969 (Case [id number] COMPLETE) REGADENOSON INJECTION (NM Detailed) CPT:J2785 Clinical History: Pre-op Assessment Report Status: Verified Date Reported: NOV 01, 2024 Date Verified: NOV 01, 2024 Cinder Snapper E-Sig:/ES/Bon Castro MD,PhD Report: PATIENT NAME: JOYCELYN SEPULVEDA CASE #: [id number], [id number], [id number], [id number] EXAMINATION: Rest/Lexiscan Stress Gated SPECT Myocardial Imaging [...] Staff: Bon Castro MD,PhD, Nuclear Medicine Physician (Cinder Snapper) Primary Interpreting Resident: RADHA PROCTOR MD /BON Ruelas [facility] Oct 06, 2024 09:49 AM BONE LENGTH STUDY (SCANOGRAM): JOYCELYN SEPULVEDA [id number] -1945 M Ex Date: OCT 06, 2024@09:49 Req Phys: SUSANNA HILLS Pat Loc: [facility] (Req'g Loc) Img Loc: [facility] RADIOLOG[facility] Service: [facility], [address] [address] (Case [id number] COMPLETE) BONE LENGTH STUDY (SCANOGRAM) (RAD Detailed) CPT:07124 Reason for Study: Pre op eval for TKA Clinical History: Report Status: Verified Date Reported: OCT 07, 2024 Date Verified: OCT 07, 2024 Cinder Snapper E-Sig:/BRIANDA/PUNEET CARDOSO MD Report: Nonstandard examination as requested for nonradiological measurement or guidance. Impression: Nonstandard imaging Primary Interpreting Staff: PUNEET CARDOSO MD, Radiologist (Cinder Snapper) /PUNEET DE PAZ [facility] Oct 06, 2024 09:49 AM CHEST X-RAY, 2 VIE WS: JOYCELYN SEPULVEDA [id number] -1945 M Exm Date: OCT 06, 2024@09:49 Req Phys: JEANASUSANNA Pat Loc: [facility]AN-[facility]TH[facility] PA JEANA (Req'g Loc) Img Loc: [facility] Service: [address] [address] (Case [id number] COMPLETE) CHEST X-RAY, 2 VIEWS (RAD Detailed) CPT:68029 Reason for Study: Pre op eval for TKA Clinical History: Report Status: Verified Date Reported: OCT 07, 2024 Date Verified: OCT 07, 2024 Cinder Snapper E-Sig:/BRIANDA/PUNEET CARDOSO MD Report: PA and lateral chest [...] Primary Interpreting Staff: PUNEET CARDOSO MD, Radiologist (Cinder Snapper) Primary Interpreting Resident: Janny El, Resident /PUNEET CHEN [facility] Pathology Reports: +/- 30 days of [...] the Encounter. The data comes from all [facility] facilities. Date/Time Pathology Report Provider [...] - - - POSTOPERATIVE DIAGNOSIS: Surgeon/physician: JEFFERSON MARTINEZDY =-=-=-=-=-=-=-=-=-=-=-=-=-= -=-=-=-=-=-=-=-=-=-=-=-=-=- =-=-=-=-=-=-=-=-=-=-=-=-= - - - - [...] x 3.0 cm for soft tissue fragments. Radiology Therapist sections are submitted, following decalcification in RDO, in two cassettes A1-A2 MICROSCOPIC EXAM: ([place]) Microscopic examination of the sections submitted from right knee bone shows variable loss of articular cartilage with fibrillation and splitting. DIAGNOSIS: RIGHT KNEE BONE, RIGHT TOTAL KNEE ARTHROPLASTY: DEGENERATIVE CHANGES /es/ STUART RIVERS Pathologist Signed Nov 22, 2024@12:56 Performing Laboratory: Surgical Pathology Report Performed By: [address] CLIA# [id number] [address] [place] [address] $FTR - - - - - - - - - - - - - - - - - - - - - - - - - - - - - - - - - - - - - - - - (End of report) STUART RIVERS MD [facility] Date Nov 22, 2024 - - - - - - - - - - - - - - - - - - - - - - - - - - - - - - - - - - - - - - - - SEPULVEDAJOYCELYN MESSER STANDARD FORM 515 ID:[id number] SEX:M :1945 AGE: 78 LOC:APFEE PCP: Alondra Bryant /brianda/ STUART RIVERS Pathologist Signed: 11/22/2024 12:56 STUART RIVERS [facility] Encounter Notes: All associated encounter notes This section contains the clinical notes associated to the Encounter. Date/Time Encounter Note(s) Provider Source Nov 01, 2024 10:59 AM CARDIOLOGY DIAGNOSTIC STUDY NOTE: LOCAL TITLE: STRESS TEST PROCEDURE STANDARD TITLE: CARDIOLOGY DIAGNOSTIC STUDY NOTE DATE OF NOTE: NOV 01, 2024@10:59 ENTRY DATE: NOV 01, 2024@10:59:29 AUTHOR: DEACON OVALLES EXP COSIGNER: JAKUB COYLE URGENCY: STATUS: COMPLETED STRESS TEST PROCEDURE Has ADDENDA STRESS TEST PROCEDURE NOTE Vitals Pulse: 67 (10/27/2024 09:33) BP: 143/77 (10/27/2024 09:33) RESP: 18 (10/27/2024 09:33) Height: 67 in [170.2 cm] (10/27/2024 09:33) Weight: 207 lb [93.89 kg] (10/31/2024 11:03) Referring provider: SUSANNA HILLS Reason for consult: Abnormal ECG, pre-op (total knee replacement) Patients chart is reviewed. History is taken from the patient. HISTORY OF PRESENT ILLNESS JOYCELYN SEPULVEDA Panchito is a 78 year old MALE with B cell lymphoma, HTN, HLD, ALBARO, stroke, CKD, PTSD presenting for pre-op testing. Patient has knee pain and was told not to use his home elliptical machine. Barely able to ambulate. Also has pain in his left shoulder and unable to lift his left arm or have an adequate occupational health specialist for an arm-crank test. EKG for preoperative work-up for total knee replacement revealed potential inferior infarct, patient does not recall any prior cardiac history. He was seen by Cardiology who recommended a stress echocardiogram to be completed, preferably pre-operatively. Today, at rest, patient denies chest pain, dyspnea, lightheadedness/dizziness, orthopnea, PND, or lower extremity edema. Cardiac Hx: As above PAST MEDICAL HISTORY 1) HTN - Hypertension ([facility] [id number]) 2) Hyperlipidemia ([facility] [id number]) 3) Sleep apnoea 4) H/O: Stroke ([facility] [id number]) 5) B-cell lymphoma 6) Anxiety ([facility] [id number]) 7) Depression ([facility] [id number]) 8) Chronic kidney disease 9) Pes planus 10) Chronic post-traumatic stress disorder 11) Exposure to potentially hazardous substance 12) History of malignant neoplasm of skin CURRENT MEDICATIONS Active Outpatient Medications (including Supplies): Active Outpatient Medications Status = 1) ATORVASTATIN CALCIUM 80MG TAB TAKE ONE-HALF TABLET BY MOUTH ACTIVE (S) EVERY EVENING Indication: FOR HIGH CHOLESTEROL 2) BUPROPION HCL 300MG 24HR SA TAB TAKE ONE TABLET BY MOUTH ACTIVE ONCE A DAY SWALLOW WHOLE - DO NOT CRUSH OR CHEW. Indication: FOR DEPRESSION 3) CALCIUM 500MG (CA CARB-1.25GM) TAB TAKE TWO TABLETS BY MOUTH ACTIVE TWICE A DAY Indication: FOR CALCIUM SUPPLEMENTATION 4) CETIRIZINE HCL 10MG TAB TAKE ONE TABLET BY MOUTH ONCE A DAY ACTIVE Indication: FOR ALLERGY SYMPTOMS 5) CYCLOBENZAPRINE HCL 10MG TAB TAKE ONE TABLET BY MOUTH THREE ACTIVE TIMES A DAY NEEDED MAY CAUSE DROWSINESS. DO NOT DRINK ALCOHOL WHILE TAKING THIS MEDICATION. Indication: FOR MUSCLE SPASM 6) DULOXETINE HCL 30MG EC CAP TAKE THREE CAPSULES BY MOUTH ONCE ACTIVE A DAY DO NOT ABRUPTLY DISCONTINUE MEDICATION. Indication: FOR DEPRESSION 7) ERGOCALCIF 1,250MCG (D2-50,000UNIT) CAP TAKE ONE CAPSULE BY ACTIVE MOUTH EVERY WEEK Indication: FOR VITAMIN D DEFICIENCY 8) FINASTERIDE 5MG TAB TAKE ONE TABLET BY MOUTH ONCE A DAY ACTIVE SWALLOW WHOLE, DO NOT CRUSH, SPLIT, OR CHEW. Indication: FOR BENIGN PROSTATIC HYPERPLASIA 9) FLUTICASONE PROP 50MCG 120D NASAL INHL INSTILL 2 SPRAYS IN ACTIVE NOSTRIL(S) ONCE A DAY (MUST BE USED DIRECTED FOR MINIMUM OF 21 DAYS TO PROVIDE ADEQUATE BENEFITS) Indication: FOR RHINITIS 10) HYDROCHLOROTHIAZIDE 25MG TAB TAKE ONE TABLET BY MOUTH ONCE A ACTIVE DAY Indication: FOR HIGH BLOOD PRESSURE 11) LISINOPRIL 20MG TAB TAKE ONE-HALF TABLET BY MOUTH ONCE A DAY ACTIVE Indication: FOR HIGH BLOOD PRESSURE 12) SODIUM FLUORIDE 1.1% TOOTHPASTE USE DIRECTED BY MOUTH ACTIVE TWICE A DAY TOOTHPASTE (DO NOT SWALLOW) APPLY A PEA-SIZED AMOUNT OF THE PASTE TO A TOOTHBRUSH AND BRUSH THOROUGHLY FOR TWO MINUTES, AT MORNING AND AT NIGHT; SPIT, DO NOT RINSE. DO NOT EAT, DRINK, OR RINSE FOR 30 MINUTES AFTER USE. Indication: FOR DENTAL CARIES 13) SUNSCREEN 30-50/PHY BLOCK/PABA-F LOTION APPLY LIBERALLY TO ACTIVE AFFECTED AREA(S) DIRECTED (EXTERNAL USE ONLY) Indication: FOR SKIN PROTECTION 14) TAMSULOSIN HCL 0.4MG CAP TAKE ONE CAPSULE BY MOUTH EVERY ACTIVE EVENING APPROXIMATELY 30 MINUTES AFTER THE SAME MEAL EACH DAY Indication: FOR BENIGN PROSTATIC HYPERPLASIA 15) TRAZODONE HCL 50MG TAB TAKE ONE-HALF TABLET BY MOUTH AT ACTIVE BEDTIME Indication: FOR SLEEP All meds were reviewed with patient. Allergy: Patient has answered NKA OTHER HISTORY FAMILY HISTORY: No premature coronary disease or sudden SOCIAL HISTORY: TOBACCO: Denies ALCOHOL: Denies DRUGS: Denies REVIEW OF SYSTEMS Review of systems: All 14 systems reviewed are negative except as noted in HPI. OBJECTIVE/DATA PHYSICAL EXAM Vitals as above - General: NAD - Cardiac: RRR, normal S1/S2 - Pulm: non-labored, noormal work of breathing - Abdomen: + bowel sounds, soft - Extremities: Warm, no lower extremity edema DIAGNOSTIC DATA CBC WBC:4.8 10*3/uL (10/27/24 10:29) Hgb:HGB 13.1 g/dL 10/27/2024 10:29 HCT:38.8 % (10/27/24 10:29) PLT:PLT 240 10*3/uL 10/27/2024 10:29 Chem 7 GLUCOSE 109 H mg/dL 10/27/2024 10:30 BUN: 17.9 mg/dL (10/27/24 10:30) CREATININE 0.99 mg/dL 10/27/2024 10:30 SODIUM 126 L mEq/L 10/27/2024 10:30 POTASSIUM 4.2 mEq/L 10/27/2024 10:30 CHLORIDE 93 mEq/L L (10/27/24 10:30) CARBON DIOXIDE 25 mEq/L 10/27/2024 10:30 --- ASSESSMENT AND PLAN Pt with RF and no current angina equivalent. Will proceed with stress test. --- CONSENT FOR STRESS TESTING The rationale, expected symptoms of stress test and complications attributable to stress test were elaborated and discussed with the patient. All questions were addressed. Patient acknowledged understanding of the issues discussed. Informed consent was obtained. --- Patient has knee pain and was told not to use his home elliptical machine. Barely able to ambulate. Also has pain in his left shoulder and unable to lift his left arm or have an adequate occupational health specialist for an arm-crank test. --- Pharmacologic Stress Test PHARMOCALOGIC AGENT: regadenoson RESULTS OF PHARMACOLOGIC STRESS ECG CHANGES DURING/AFTER PHARMACOLOGIC STRESS TEST: None DYSRHYTHMIAS: No BP RESPONSES Baseline BP: 158/60 BP during infusion: 118/49 SYMPTOMS/COMPLICATIONS: SOB REASON FOR STOPPING: Protocol Completed Reversal agent given: Yes, caffeine --- ======= SUMMARY ======= Non-ischemic ECG stress portion. Imaging stress report to follow. --- /jemma OVALLES Signed: 11/01/2024 11:13 /jemma Coyle MD Cardiology Physician Cosigned: 11/01/2024 11:19 11/01/2024 ADDENDUM STATUS: COMPLETED Cardiology Attending Note Patient's history, stress data and EKG were reviewed with the Radiological Equipment Specialist, Dr. OVALLES. I have reviewed his note dated NOV 01, 2024 and agree with findings and the assessment. 35 min is spent on this encounter /jemma Coyle MD Cardiology Physician Signed: 11/01/2024 11:19 DEACON OVALLES [facility] Nov 01, 2024 10:58 AM CARDIOLOGY PROCEDURE NOTE: LOCAL TITLE: CARDIOLOGY PROCEDURE REPORT [facility] STANDARD TITLE: CARDIOLOGY PROCEDURE NOTE DATE OF NOTE: NOV 01, 2024@10:58 ENTRY DATE: NOV 01, 2024@10:58:24 AUTHOR: BASILIO ISAACS EXP COSIGNER: URGENCY: STATUS: COMPLETED STRESS TEST PROCEDURE NOTE Patient brought into the stress lab and prepped for the stress test at 1045 Baseline ECG obtained and given to Dr Ovalles for review Lexiscan injected by Dr. Ovalles Aminophylline given : N Complications: NONE Stress ECG transferred to MUSE system: Y Stress ECG given to Dr. Ovalles for review at the end of the test Patient discharged from stress lab in stable condition See MD note for further details. /brianda/ BASILIO ISAACS [facility] Stress Redipper Signed: 11/01/2024 11:01 BASILIO ISAACS [facility]
--- OUTSIDE RECORDS SUMMARY | 2024-11-01 06:00 | XMS_ITS ---
Author Name [facility] Address [address] [place] [address] Care Team Providers Care Technical Writing Lead/Mgr Name Role Phone KOLE GARY Primary Care [...] Name Patient's Relationship to Policy Wiseman AUNG [facility] (WNR) MEDICARE [facility] (WNR) Aug 03, 2017 [facility] ([facility]) [id number] [phone] FR RAE SEPULVEDA PATIENT HUMANA [facility] (WNR) MEDICARE ADVANTAGE [facility] (WNR) December 01, 2022 [id number] [phone] FR RAE SEPULVEDA PATIENT HUMANA [facility] (WNR) MEDICARE ADVANTAGE [facility] (WNR) December 01, 2022 [id number] [phone] [id number] FR COCO ANK PATIENT [employer]MANA [facility] (WNR) MEDICARE ADVANTAGE [facility] ( WNR) December 01, 2022 [id number] [phone] FR RAE SEPULVEDA PATIENT HUMANA [facility] (WNR) MEDICARE ADVANTAGE [facility] (WNR) Aug 03, 2021 [id number] FR COCO ANK PATIENT [employer]MANA [facility] (WNR) MEDICARE ADVANTAGE [facility] (WNR) Aug 03, 2017 [id number] [phone] FR COCO ANK PATIENT [employer]MANA [facility] (WNR) MEDICARE ADVANTAGE [facility] (WNR) Aug 03, 2017 [id number] [phone] FR COCO ANK PATIENT Selected Encounter This section includes the information on record at NH for the Encounter. Date/Time Encounter Type Encounter Description Reason Provider Source Nov 01, 2024 11:00 AM OFFICE O/P EST HI 40 MIN ANESTHESIA PRE/POST-OP CONSULT ICD-10-CM Z01.818 Encounter for other preprocedural examination VERNON LONGO Catrachito Encounter Template Text not used by NH Assessments - Encounter Diagnoses This section includes the primary and secondary diagnoses documented for the Encounter. Date/Time Primary/Secondary Diagnosis Diagnosis Name Provider Source Nov 01, 2024 03:38 PM PRIMARY Encounter for other preprocedural examination JOSÉ LONGO [facility] Nov 01, 2024 03:38 PM SECONDARY Anxiety disorder, unspecified JOSÉ LONGO [facility] Nov 01, 2024 03:38 PM SECONDARY Chronic kidney disease, unspecified JOSÉ LONGO [facility] Nov 01, 2024 03:38 PM SECONDARY Depression, unspecified JOSÉ LONGO [facility] Nov 01, 2024 03:38 PM SECONDARY Essential (primary) hypertension JOSÉ LONGO [facility] Nov 01, 2024 03:38 PM SECONDARY Hyperlipidemia, unspecified JOSÉ LONGO [facility] Nov 01, 2024 03:38 PM SECONDARY Hypo-osmolality and hyponatremia JOSÉ LONGO [facility] Nov 01, 2024 03:38 PM SECONDARY Personal history of other malignant neoplasm of skin JOSÉ LONGO [facility] Nov 01, 2024 03:38 PM SECONDARY Post-traumatic stress disorder, chronic JOSÉ LONGO [facility] Nov 01, 2024 03:38 PM SECONDARY Prsnl hx of TIA (TIA), and cereb infrc w/o resid deficits JOÉS LONGO [facility] Nov 01, 2024 03:38 PM SECONDARY Sleep apnea, unspecified JOSÉ LONGO [facility] Nov 01, 2024 03:38 PM SECONDARY Unilateral primary osteoarthritis, right knee JOSÉ LONGO [facility] Nov 01, 2024 03:38 PM SECONDARY Unspecified B-cell lymphoma, unspecified site JOSÉ LONGO [facility] Plan of Treatment: Future Appointments (+ 6 months) and Future Tests (+/- 45 days) The Plan of Treatment section includes future care activities for the patient from all [facility]. This section includes future appointments and future orders which are active, pending or scheduled. Future Appointments This section includes appointments that were scheduled to occur 6 months from the date of the Encounter, up to a maximum of 20 appointments. The data comes from all [facility]. Appointment Date/Time Appointment Type Appointme nt Facility Name Nov 07, 2024 09:30 AM AMBULATORY - MEDICINE [facility] Nov 08, 2024 10:00 AM AMBULATORY - REHAB MEDICIN [facility] Nov 14, 2024 09:30 AM AMBULATORY - MEDICINE [facility] Nov 18, 2024 08:30 AM AMBULATORY - NONE [facility] Nov 20, 2024 08:00 AM AMBULATORY - NONE [facility] Nov 21, 2024 09:30 AM AMBULATORY - MEDICINE [facility] Nov 28, 2024 09:30 AM AMBULATORY - MEDICINE [facility] Nov 30, 2024 10:00 AM AMBULATORY - MEDICINE [facility] December 05, 2024 09:30 AM AMBULATORY - MEDICINE [facility] December 12, 2024 09:30 AM AMBULATORY - MEDICINE [facility] December 12, 2024 02:00 PM AMBULATORY - REHAB MEDICIN [facility] December 13, 2024 11:00 AM AMBULATORY - SURGERY [facility] December 14, 2024 10:00 AM AMBULATORY - SURGERY [facility] December 19, 2024 09:30 AM AMBULATORY - MEDICINE [facility] December 19, 2024 11:00 AM AMBULATORY - REHAB MEDICIN E [facility] December 28, 2024 02:45 PM AMBULATORY - MEDICINE [facility] Jan 02, 2025 10:30 AM AMBULATORY - REHAB MEDICIN E [facility] Jan 09, 2025 09:30 AM AMBULATORY - MEDICINE [facility] Jan 09, 2025 10:30 AM AMBULATORY - NONE [facility] Jan 10, 2025 09:00 AM AMBULATORY - MEDICINE [facility] Active, Pending, and Scheduled Orders This section includes a listing of several types of active, pending, and scheduled orders, including clinic medications orders, diagnostic test orders, procedure orders and consult orders; where the start date of the order is 45 days before the date of the Encounter or 45 days after the date of theEncounter. The data comes from all [place] treatment facilities. Test Date/Time Test Type Test Details Facility Name Oct 27, 2024 12:00 AM Laboratory - Blood Bank Order TYPE & SCREEN - LAB BLOOD SP [facility] Nov 18, 2024 06:00 AM Laboratory - Blood Bank Order TYPE & SCREEN - LAB BLOOD STAT WC [facility] Lab Results: +/- 30 days of the encounter This section includes the Chemistry and Hematology Lab Results on record with NH for the patient. Radiology Reports and Pathology Reports are provided separately, in subsequent sections. Lab Results This section contains the Chemistry/Hematology Results that were resulted 30 days before or 30 daysafter the date of the Encounter. Date/Time Source Result Type Result - Unit Interpretation Reference Range Specimen Type Comment Nov 19, 2024 02:24 PM [facility] BASIC METABOLIC PANEL PLASMA Specimen Type: PLASMA Comment: No hemolysis noted. Ordering Provider: BESSY HOYT Report Released Date/Time: Nov 19, 2024 06:00 AM Reporting Lab: [place] [address] [facility] [address] Performing Lab: [place] [address] [facility] [address] CREATININE 1.16 mg/dL 0.7-1.3 UREA NITROGEN 21.3 mg/dL 9.0-25.0 GLUCOSE 101 mg/dL H 72-99 SODIUM 133 meq/L L 136-145 POTASSIUM 4.4 meq/L 3.5-5 CHLORIDE 100 meq/L 98-107 CARBON DIOXIDE 21 meq/L L 22-31 CALCIUM 9.4 mg/dL 8.4-10.4 EGFR (CKD-EPI 2020) 64.5 >60 Nov 19, 2024 11:54 AM [facility] CBC BLOOD Specimen Type: BLOOD Comment: SCAN OF SLIDE AGREES WITH AUTOMATED DIFF Ordering Provider: JEFFERSON VITAL Report Released Date/Time: Nov 19, 2024 11:44 AM Reporting Lab: [address] [address] Performing Lab: [address] [address] WBC 11.2 10*3/uL 3.6-11.2 RBC 3.49 10*6/uL [...] 0.00-0. 20 Nov 19, 2024 11:54 AM [facility] BASIC METABOLIC PANEL PLASMA Specimen Type: PL ASMA Comment: No hemolysis noted. Ordering Provider: JEFFERSON VITAL Report Released Date/Time: Nov 19, 2024 11:44 AM Reporting Lab: [facility] [address] [facility] [address] Performing Lab: [facility] [address] [facility] [address] CREATININE 1.15 mg/dL 0.7-1.3 UREA NITROGEN 23.4 mg/dL 9.0-25.0 GLUCOSE 107 mg/dL H 72-99 SODIUM 132 meq/L L 136-145 POTASSIUM 4.1 meq/L 3.5-5 CHLORIDE 101 meq/L 98-107 CARBON DIOXIDE 23 meq/L 22-31 CALCIUM 9.2 mg/dL 8.4-10.4 EGFR (CKD-EPI 2020) 65.1 >60 Nov 18, 2024 06:00 PM [facility] MRSA SURVL NARES DNA NARES [...] Nov 18, 2024 03:43 PM Reporting Lab: [facility] [address] [facility] [address] Performing Lab: [facility] [address] [facility] [address] MRSA SURVL NARES DNA Negative Negative Nov 16, 2024 08:28 AM [facility] TSH W/ REFLEX FT4 (STL) PLASMA Specimen Type: PLASMA No comment entered. Ordering Provider: ALONDRA BRYANT Report Released Date/Time: Nov 01, 2024 04:02 PM Reporting Lab: [facility] [address] [facility] [address] Performing Lab: [facility] [address] [facility] [address] TSH 1.991 u[IU]/mL 0.47-5 Nov 16, 2024 08:28 AM [facility] BASIC METABOLIC PANEL PLASMA Specimen Type: PL ASMA Comment: No hemolysis noted. Ordering Provider: ALONDRA BRYANT Report Released Date/Time: Nov 01, 2024 04:02 PM Reporting Lab: [address] [address] Performing Lab: [address] [address] CREATININE 1.02 mg/dL 0.7-1.3 UREA NITROGEN 14.7 mg/dL 9.0-25.0 GLUCOSE 98 mg/dL 72-99 SODIUM 134 meq/L L 136-145 POTASSIUM 4.2 meq/L 3.5-5 CHLORIDE 100 meq/L 98-107 CARBON DIOXIDE 24 meq/L 22-31 CALCIUM 9.5 mg/dL 8.4-10.4 EGFR (CKD-EPI 2020) 75.2 >60 Nov 01, 2024 12:05 PM [facility] URINALYSIS (L-PB) URINE Specimen Type: URIN E No comment entered. Ordering Provider: PERFECTO BOLES Report Released Date/Time: Oct 27, 2024 10:25 AM Reporting Lab: [address] [address] Performing Lab: [address] [address] URINE COLOR Light-Yellow Yellow U.BILIRUBIN Negative mg/dL Negative U.PH 6.5 5.0-8.0 APPEARANCE Clear Clear U.NITRITE Negative mg/dL Negative URN.GLUCOSE Normal mg/dL Negative URN.PROTEIN Negative mg/dL URN.UROBILINOGEN Normal mg/dL Normal URN.BLOOD Negative mg/dL Negative-Trace URN.KETONES Negative mg/dL Negative-Trac e URN.LEUK.EST. Negative mg/dL Negative-Tr sweta URN.SPECIFIC GRAVITY 1.012 Nov 01, 2024 12:05 PM [facility] URINE DRUG SCREEN (STL) URINE Specimen Type: URINE Comment: The cut-off value for Fentanyl was laboratory developed and its performance characteristics confirmed by the [facility] laboratory thru method comparison with reference laboratory and medication chart review. The laboratory is regulated under CLIA as qualified to perform high-complexity testing. Fentanyl is used for clinical purposes in conjunction with other laboratory tests. Ordering Provider: PERFECTO BOLES Report Released Date/Time: Oct 27, 2024 10:25 AM Reporting Lab: [facility] [address] [facility] [address] Performing Lab: [address] [address] ETHANOL <10 mg/dL 0-9 AMPHET/METHAMPHETAMINE Negative ng/mL COCAINE METABOLITES Negative ng/mL BENZODIAZEPINES (STL) Negative ng/mL CANNABINOIDS Negative ng/mL METHADONE Negative ng/mL OPIATES Negative ng/mL CREATININE URINE/OTHERS 68.8 mg/dL 63-16 6 OXYCODONE (AHLAL-CCY-YZ) Negative ng/mL BUPRENORPHINE (STL-PB-MA) Negative ng/mL FENTANYL (STL) Negative ng/mL Nov 01, 2024 12:05 PM [facility] BASIC METABOLIC PANEL PLASMA Specimen Type: PL ASMA Comment: No hemolysis noted. Ordering Provider: ANDER LONOG Report Released Date/Time: Nov 01, 2024 11:45 AM Reporting Lab: [place] [address] [facility] [address] Performing Lab: [address] [address] CREATININE 1.03 mg/dL 0.7-1.3 UREA NITROGEN 16.5 mg/dL 9.0-25.0 GLUCOSE 93 mg/dL 72-99 SODIUM 129 meq/L L 136-145 POTASSIUM 3.6 meq/L 3.5-5 CHLORIDE 98 meq/L 98-107 CARBON DIOXIDE 23 meq/L 22-31 CALCIUM 8.7 mg/dL 8.4-10.4 EGFR (CKD-EPI 2020) 74.4 >60 Oct 27, 2024 10:29 AM [facility] HGA1C BLOOD Specimen Type: BLOOD No comment entered. Ordering Provider: PERFECTO BOLES Report Released Date/Time: Oct 27, 2024 10:25 AM Reporting Lab: [facility] [address] [facility] [address] Performing Lab: [facility] [address] [facility] [address] HGA1C 5.9 4.0-6.0 Oct 27, 2024 10:29 AM [facility] VITAMIN D, 25-HYDROXY SERUM Specimen Type: SE RUM No comment entered. Ordering Provider: PERFECTO BOLES Report Released Date/Time: Oct 27, 2024 10:25 AM Reporting Lab: [facility] [address] [place] [address] Performing Lab: [facility] [address] [place] [address] VITAMIN D, 25-HYDROXY 24.1 ng/mL L 30-96 Oct 27, 2024 10:29 AM [facility] PT/INR NEW (STL-MA) PLASMA Specimen Type: PLAS MA No comment entered. Ordering Provider: PERFECTO BOLES Report Released Date/Time: Oct 27, 2024 10:25 AM Reporting Lab: [facility] [address] [facility] [address] Performing Lab: [facility] [address] [place] [address] PROTIME 11.3 s 9.4-12.5 INR VALUE 1.0 {INR} Oct 27, 2024 10:29 AM [facility] COMPREHENSIVE METABOLIC PANEL PLASMA Specimen Type: PLASMA Comment: No hemolysis noted. Ordering Provider: PERFECTO BOLES Report Released Date/Time: Oct 27, 2024 10:25 AM Reporting Lab: [facility] [address] [facility] [address] Performing Lab: [facility] [address] [facility] [address] CREATININE 0.99 mg/dL 0.7-1.3 UREA NITROGEN 17.9 [...] 78.0 >60 Oct 27, 2024 10:29 AM [facility] CBC BLOOD Specimen Type: BLOOD No comment entered. Ordering Provider: PERFECTO BOLES Report Released Date/Time: Oct 27, 2024 10:25 AM Reporting Lab: [place] [address] [facility] [address] Performing Lab: [facility] [address] [facility] [address] WBC 4.8 10*3/uL 3.6-11.2 RBC 4.34 10*6/uL [...] 62 147/68 16 98 65 205 34 [facility] Advance Directives: All historical and current Section Date Range: From patient's date of to the date document was created. This section includes ALL of a patient's completed or amended [place] Advance and Rescinded Directives. The entries below indicate that a directive exists for the patient, but an actual copy is not included with this document. The data comes from all NH facilities. Date Advance Directives Provider Source Jun 12, [address] [facility] December 24, 2011 ADVANCE DIRECTIVE DISCUSSION TOMMY VAZQUEZ [facility] Radiology Reports: +/- 30 days of [...] the Encounter. The data comes from all [place] treatment facilities. Date/Time Radiology Report Provider Source Nov 18, 2024 02:12 PM KNEE,RIGHT,1 OR 2 VIEWS: JOYCELYN SEPULVEDA [id number] -1945 M Ex Date: NOV 18, 2024@14:12 Req Phys: YOVANI DUNN Loc: 5C PCU OE-[facility]/11-19-2024@07:05 Img Loc: -MAIN RADIOLOGY SUITE Service: [address] [address] (Case [id number] COMPLETE) KNEE,RIGHT,1 OR 2 VIEWS (RAD Detailed) CPT:71921 Proc Modifiers : OR, RIGHT, AP & LAT Reason for Study: postop in OR R TKA Clinical History: Do films need to be ortho templated printed? No Report Status: Verified Date Reported: NOV 19, 2024 Date Verified: NOV 19, 2024 Betting Agency Counter Clerk E-Sig:/ES/Kuldip Decker MD Report: FINDINGS: Right knee replacement is noted and position appears satisfactory. Impression: Right knee replacement shows satisfactory position. Primary Interpreting Staff: Kuldip Decker MD, Radiologist (Betting Agency Counter Clerk) /QMB KULDIP DECKER [facility] Nov 01, 2024 09:58 AM NM MYOCARDIAL P SP ECT STRESS/REST-P: JOYCELYN SEPULVEDA [id number] -1945 M Exm Date: NOV 01, 2024@09:58 Req Phys: SUSANNA HILLS Loc: [facility]-CARDIO E-CONSULT (Req'g Loc Img Loc: -NUCLEAR MEDICINE Service: Unknown [address] [address] (Case [id number] COMPLETE) NM MYOCARDIAL PERF SPECT STRESS/R(NM Detailed) CPT:64927 Reason for Study: Pre-op Assessment' (Case 1429 COMPLETE) TC-99M TETROFOSMIN (MYOVIEW) (NM Detailed) CPT:A9502 (Case 1430 COMPLETE) TC-99M TETROFOSMIN (MYOVIEW), PE(NM Detailed) CPT:A9502 (Case 1431 COMPLETE) NON-HEU TC-99M ADD-ON PER STUDY D(NM Detailed) CPT:Q9969 (Case 1737 COMPLETE) REGADENOSON INJECTION (NM Detailed) CPT:J2785 Clinical History: Pre-op Assessment Report Status: Verified Date Reported: NOV 01, 2024 Date Verified: NOV 01, 2024 Betting Agency Counter Clerk E-Sig:/ES/Bon Castro MD,PhD Report: PATIENT NAME: JOYCELYN SEPULVEDA CASE #: [id number], [id number], [id number], [id number], [id number] EXAMINATION: Rest/Lexiscan Stress Gated SPECT Myocardial Imaging [...] Staff: Bon Castro MD,PhD, Nuclear Medicine Physician (Betting Agency Counter Clerk) Primary Interpreting Resident: RADHA PROCTOR MD /BON Ruelas [facility] Oct 06, 2024 09:49 AM BONE LENGTH STUDY (SCANOGRAM): JOYCELYN SEPULVEDA Panchito [id number] -1945 M Exm Date: OCT 06, 2024@09:49 Req Phys: SUSANNA HILLS Pat Loc: RYAN-ORTHO [place]JA [facility]S (Req'g Loc) Img Loc: RYAN-RYAN RADIOLOGY Service: [facility], [address] [address] (Case [id number] COMPLETE) BONE LENGTH STUDY (SCANOGRAM) (RAD Detailed) CPT:64517 Reason for Study: Pre op eval for TKA Clinical History: Report Status: Verified Date Reported: OCT 07, 2024 Date Verified: OCT 07, 2024 Betting Agency Counter Clerk E-Sig:/ES/PUNEET CARDOSO MD Report: Nonstandard examination as requested for nonradiological measurement or guidance. Impression: Nonstandard imaging Primary Interpreting Staff: PUNEET CARDOSO MD, Radiologist (Betting Agency Counter Clerk) /PUNEET DE PAZ [facility] Oct 06, 2024 09:49 AM CHEST X-RAY, 2 VIE WS: JOYCELYN SEPULVEDA [id number] -1945 M Exm Date: OCT 06, 2024@09:49 Req Phys: JEANASUSANNA Pat Loc: RYAN-ORTHO PA JEANA (Req'g Loc) Img Loc: RYAN-RYAN RADIOLOGY Service: [facility], [facility] [address] [place] [address] (Case [id number] COMPLETE) CHEST X-RAY, 2 VIEWS (RAD Detailed) CPT:54558 Reason for Study: Pre op eval for TKA Clinical History: Report Status: Verified Date Reported: OCT 07, 2024 Date Verified: OCT 07, 2024 Betting Agency Counter Clerk E-Sig:/ES/PUNEET CARDOSO MD Report: PA and lateral [...] Primary Interpreting Staff: PUNEET CARDOSO MD, Radiologist (Betting Agency Counter Clerk) Primary Interpreting Resident: Janny El, Resident /PUNEET CHEN [facility] Pathology Reports: +/- 30 days of [...] the Encounter. The data comes from all [place] treatment facilities. Date/Time Pathology Report Provider Source Nov 22, 2024 12:56 PM LR SURGICAL PATHOL OGY REPORT: LOCAL TITLE: LR SURGICAL PATHOLOGY REPORT STANDARD TITLE: PATHOLOGY PROCEDURE NOTE DATE OF NOTE: NOV 22, 2024@12:56:37 ENTRY DATE: NOV 22, 2024@12:56:37 AUTHOR: STUART RIVERS COSIGNER: URGENCY: STATUS: COMPLETED $APHDR - - [...] x 3.0 cm for soft tissue fragments. Senior Lead Software Engineer sections are submitted, following decalcification in RDO, in two cassettes A1-A2 MICROSCOPIC EXAM: ([place]) Microscopic examination of the sections submitted from right knee bone shows variable loss of articular cartilage with fibrillation and splitting. DIAGNOSIS: RIGHT KNEE BONE, RIGHT TOTAL KNEE ARTHROPLASTY: DEGENERATIVE CHANGES /es/ STUART RIVERS Pathologist Signed Nov 22, 2024@12:56 Performing Laboratory: Surgical Pathology Report Performed By: [address] [id number] [address] [place] [address] [place] [address] $FTR - - - - - - - - - - - - - - - - - - - - - - - - - - - - - - - - - - - - - - - - (End of report) STUART RIVERS MD [facility] Date Nov 22, 2024 - - - - - - - - - - - - - - - - - - - - - - - - - - - - - - - - - - - - - - - - JOYCELYN SEPULVEDA A STANDARD FORM 515 ID:[id number] SEX:M :1945 AGE: 78 LOC:APFEE PCP: Alondra Bryant /brianda/ STUART RIVERS Pathologist Signed: 11/22/2024 12:56 STUART RIVERS [facility] Encounter Notes: All associated encounter notes This section contains the clinical notes associated to the Encounter. Date/Time Encounter Note(s) Provider Source Nov 17, 2024 11:18 AM ADDENDUM: LOCAL TITLE: Addendum STANDARD TITLE: ADDENDUM DATE OF NOTE: NOV 17, 2024@11:18:08 ENTRY DATE: NOV 17, 2024@11:18:10 AUTHOR: ANDER LONGO EXP COSIGNER: URGENCY: STATUS: COMPLETED Per PCP 11/17/24: Reviewed labs from patient, his NA is now at 134. I recommend he continue to refrain from using hydrochlorothiazide for HTN given that is the likely cause of his low sodium. To help keep blood pressure under control, I recommend to increase lisinopril to 20mg daily and I have changed the dose of his medication. He can start using a whole 20mg tab daily. --recommend he monitor his BP at home and follow up if his home blood pressures are >140/90. He may proceed with surgery as planned. /brianda/ NADER LONGO PA-C Physician Sales Consultant, Anesthesiology Signed: 11/17/2024 11:19 Receipt Acknowledged By: 11/17/2024 11:41 /brianda/ PERFECTO BOLES ANP- Advanced Practice Nurse, Orthopedics --- Original Document --- 11/01/24 ANESTHESIA PREOPERATIVE EVALUATION CONSULT STL: I have reviewed pertinent CPRS documentation in the electronic medical record for this patient. The recommendations/findings offered are the result of information from the requesting provider, a chart review, and IN PERSON CLINIC VISIT. JOYCELYN SEPULVEDA is a 78 year old MALE Pre-Operative Diagnosis: right knee osteoarthritis Surgical Procedure: RTKA 11/18/24 VITALS Age: 78 Weight: 207 lb [93.89 kg] (10/31/2024 11:03) Height: 67 in [170.2 cm] (10/27/2024 09:33) BMI: 32.5 Blood pressure: 143/77 (10/27/2024 09:33) Pulse: 67 (10/27/2024 09:33) Temperature: 97.5 F [36.4 C] (10/27/2024 09:33) Respiration: 18 (10/27/2024 09:33) SpO2: 92% (10/27/2024 09:33) Pain: 0 (08/15/2024 10:13) ALLERGIES Patient has answered NKA MEDICATIONS RXAE - Active/Exp Opt Meds 1) BUPROPION HCL 300MG 24HR SA TAB ACTIVE TAKE ONE TABLET BY MOUTH ONCE A DAY FOR DEPRESSION SWALLOW WHOLE - DO NOT CRUSH OR CHEW. 2) CALCIUM 500MG (CA CARB-1.25GM) TAB ACTIVE TAKE TWO TABLETS BY MOUTH TWICE A DAY FOR CALCIUM SUPPLEMENTATION 3) CETIRIZINE HCL 10MG TAB ACTIVE TAKE ONE TABLET BY MOUTH ONCE A DAY FOR ALLERGY SYMPTOMS 4) CYCLOBENZAPRINE HCL 10MG TAB ACTIVE TAKE ONE TABLET BY MOUTH THREE TIMES A DAY NEEDED FOR MUSCLE SPASM MAY CAUSE DROWSINESS. DO NOT DRINK ALCOHOL WHILE TAKING THIS MEDICATION. 5) DULOXETINE HCL 30MG EC CAP ACTIVE TAKE THREE CAPSULES BY MOUTH ONCE A DAY FOR DEPRESSION DO NOT ABRUPTLY DISCONTINUE MEDICATION. 6) ERGOCALCIF 1,250MCG (D2-50,000UNIT) CAP ACTIVE TAKE ONE CAPSULE BY MOUTH EVERY WEEK FOR VITAMIN D DEFICIENCY 7) FINASTERIDE 5MG TAB ACTIVE TAKE ONE TABLET BY MOUTH ONCE A DAY SWALLOW WHOLE, DO NOT CRUSH, SPLIT, OR CHEW. 8) FLUTICASONE PROP 50MCG 120D NASAL INHL ACTIVE INSTILL 2 SPRAYS IN NOSTRIL(S) ONCE A DAY FOR RHINITIS (MUST BE USED DIRECTED FOR MINIMUM OF 21 DAYS TO PROVIDE ADEQUATE BENEFITS) 9) HYDROCHLOROTHIAZIDE 25MG TAB ACTIVE TAKE ONE TABLET BY MOUTH ONCE A DAY FOR HIGH BLOOD PRESSURE 10) LISINOPRIL 20MG TAB ACTIVE TAKE ONE-HALF TABLET BY MOUTH ONCE A DAY FOR HIGH BLOOD PRESSURE 11) SODIUM FLUORIDE 1.1% TOOTHPASTE ACTIVE USE DIRECTED BY MOUTH TWICE A DAY FOR DENTAL CARIES TOOTHPASTE (DO NOT SWALLOW) APPLY A PEA-SIZED AMOUNT OF THE PASTE TO A TOOTHBRUSH AND BRUSH THOROUGHLY FOR TWO MINUTES, AT MORNING AND AT NIGHT; SPIT, DO NOT RINSE. DO NOT EAT, DRINK, OR RINSE FOR 30 MINUTES AFTER USE. 12) SUNSCREEN 30-50/PHY BLOCK/PABA-F LOTION ACTIVE APPLY LIBERALLY TO AFFECTED AREA(S) DIRECTED FOR SKIN PROTECTION (EXTERNAL USE ONLY) 13) TAMSULOSIN HCL 0.4MG CAP ACTIVE TAKE ONE CAPSULE BY MOUTH EVERY EVENING FOR BENIGN PROSTATIC HYPERPLASIA APPROXIMATELY 30 MINUTES AFTER THE SAME MEAL EACH DAY 14) TRAZODONE HCL 50MG TAB ACTIVE TAKE ONE-HALF TABLET BY MOUTH AT BEDTIME FOR SLEEP 15) ATORVASTATIN CALCIUM 80MG TAB ACTIVE/S TAKE ONE-HALF TABLET BY MOUTH EVERY EVENING FOR HIGH CHOLESTEROL Legend: ACTIVE/S means that the RX is 'active' and suspended for mailout. LABS WBC 4.8 10*3/uL (10/27/24 10:29) HGB 13.1 g/dL 10/27/2024 10:29 HCT 38.8 % (10/27/24 10:29) PLT 240 10*3/uL 10/27/2024 10:29 PT 11.3 sec (10/27/24 10:30) INR 1.0 INR (10/27/24 10:30) No PTT EO data found SODIUM 129 L mEq/L 11/01/2024 12:05 POTASSIUM 3.6 mEq/L 11/01/2024 12:05 CHLORIDE 98 mEq/L 11/01/2024 12:05 UREA NITROGEN 16.5 mg/dL 11/01/2024 12:05 CREATININE 1.03 mg/dL 11/01/2024 12:05 CALCIUM 8.7 mg/dL 11/01/2024 12:05 CARBON DIOXIDE 23 mEq/L 11/01/2024 12:05 GLUCOSE 93 mg/dL 11/01/2024 12:05 EGFR (CKD-EPI 2020) 74.4 11/01/2024 12:05 PROTEIN 6.7 g/dL 10/27/2024 10:30 ALBUMIN 4.0 g/dL 10/27/2024 10:30 ALKALINE PHOSPHATASE 82 U/L 10/27/2024 10:30 SGPT/ALT 30 U/L (10/27/24 10:30) SGOT/AST 30 U/L (10/27/24 10:30) TOTAL BILIRUBIN 0.6 mg/dL 10/27/2024 10:30 HGA1C 5.9 % 10/27/2024 10:30 AMPHET/METHAMPHETAMINE Negative ng/mL 11/01/2024 12:05 BENZODIAZEPINES (STL) Negative ng/mL 11/01/2024 12:05 CANNABINOIDS Negative ng/mL 11/01/2024 12:05 COCAINE METABOLITES Negative ng/mL 11/01/2024 12:05 OPIATES Negative ng/mL 11/01/2024 12:05 No HIV SCREENING EO data found [facility] Hep C tests in last five years. *No Lab Data Found* DIAGNOSTICS EKG 10/06/24: Normal sinus rhythm Possible Inferior infarct , age undetermined Abnormal ECG No previous ECGs available CXR: Impression for CHEST X-RAY, 2 VIEWS, 10/06/24, case [id number] No acute disease NM STRESS TEST 11/01/24: Impression: 1. Normal SPECT myocardial imaging without evidence of stress-induced ischemia or infarction. 2. Normal left ventricle contractility with LVEF of 72%. PROBLEM LIST 1) HTN - Hypertension ([facility] [id number]) 2) Hyperlipidemia ([facility] [id number]) 3) Sleep apnoea comment: using bipap 4) H/O: Stroke ([facility] [id number]) comment: L footdrop; wears brace; L leg weaker than R comment: using straight or quad cane 5) B-cell lymphoma comment: followed by hematology 6) Anxiety ([facility] [id number]) 7) Depression ([facility] [id number]) 8) Chronic kidney disease 9) Pes planus 10) Chronic post-traumatic stress disorder 11) Exposure to potentially hazardous substance 12) History of malignant neoplasm of skin REVIEW OF SYSTEMS/PAST MEDICAL HISTORY: Functional capacity: >4 METs, able to walk 2 city blocks or climb 1 flight of stairs - limitation is knee pain/giving out, and Leg weakness since CVA RESPIRATORY for: - Recent or current SOB + Sleep apnea, uses BiPAP, most nights, occasionall mask leaks - Asthma - COPD - recent URI symptoms CARDIAC for: - Recent chest pain + Hypertension, controlled + Hyperlipidemia - Myocardial infarction - Coronary artery disease - Heart failure - Valvular disease - Atrial fibrillation/flutter - orthopnea - syncope PSYCH/CENTRAL NERVOUS for: + Depression + Anxiety + Post-traumatic stress disorder + Cerebral vascular accident 2010, hemorrhagic, residual L foot drop/leg nd arm weakness - Seizures ENDOCRINE for: - Diabetes - Hypothyroid + hyponatremia RENAL for: + hx CRI - Nephrolithiasis GI for: - GERD - Liver disease - GI bleed VASCULAR/HEMATOLOGY/ONCOLOGY for: - Anemia - Thrombocytopenia - Bleeding disorders + B-cell lymphoma treated with chemo (BR per Hem/Onc) 2017 Bendamustine/Rituximab + melanoma s/p resection MUSCULOSKELETAL/SKIN/PERIPHER AL NERVOUS for: + Obesity + Arthritis/Degenerative joint disease - Rheumatoid arthritis - Neuropathy /REPRODUCTIVE for: + Prostate hypertrophy HABITS: Alcohol: rare Tobacco: quit 50 yrs ago Other drugs: none SURGICAL HISTORY: lymph node excision, melanoma excision from ear, colonoscopies Previous anesthesia complications: None Family history of anesthesia complications: None PHYSICAL EXAM: Auscultation Finding: Heart Sounds: Regular Rate, Regular Rhythm Breath Sounds: Clear, no wheezes/rales/rhonchi AIRWAY: MP CLASS: 1 SUBMANDIBULAR SPACE: 3 fingerbreadths RANGE OF MOTION: FULL TEETH: Intact BETA BLOCKERS: NONE RECOMMENDATIONS/PLAN: 1. This patient was discussed with Dr. Ashby. 2. Additional labs/imaging/consults needed for anesthesia team: Pt with hyponatremia since 2021 (135-133), now 126 last week, 129 today. Will cc the patient's PCP. Hyponatremia will need to be evaluated prior to surgery. If possible, Na will need to be corrected at least closer to his baseline. 3. NPO after midnight except for small sips of water with meds. 4. Unless directed by procedural team, take morning medications with a sip of water EXCEPT: Hold Lisinopril and HCTZ AM of surgery 5. They should bring his BiPAP machine with them. [facility]: 45 min Time spent in consultation with the patient: 20 minutes /es/ ANDER LONGO PA-C Physician Sales Consultant, Anesthesiology Signed: 11/01/2024 15:38 Receipt Acknowledged By: 11/01/2024 15:48 /es/ ALONDRA BRYANT Staff Physician 11/01/2024 22:21 /es/ LUKAS ASHBY MD STAFF ANESTHESIOLOGIST 11/02/2024 08:34 /es/ PERFECTO BOLES ANP- Advanced Practice Nurse, Orthopedics 11/01/2024 ADDENDUM STATUS: COMPLETED Reviewed JLV, has had intermittent low sodium going back several years, has never been as low as recently. Has also been on HCTZ for several years--this can be a cause of low sodium. I recommend he hold hydrochlorothiazide for the next week and then will recheck his BMP again next week. Lab can be done at the [facility]. /brianda/ ALONDRA BRYANT Staff Physician Signed: 11/01/2024 16:02 Receipt Acknowledged By: 11/03/2024 10:35 /es/ Cnotreras Barrett Rn, BSN REGISTERED NURSE 11/14/2024 ADDENDUM STATUS: COMPLETED sent secure message stating he is having surgery this week and is wondering when he is going to receive soap to use. States he was told to use it for 5 days before procedure. Appears procedure is scheduled for 11/18/24. [place] most likely is referring to CHLORHEXIDINE GLUCONATE 4% TOP LIQUID. Rx for this was never entered. Not sure if procedure needs to be postponed, but even if sent overnight would only have three days to use before procedure. Gurvinder Reeves, PharmD. /brianda/ GURVINDER REEVES Signed: 11/14/2024 09:51 Receipt Acknowledged By: 11/14/2024 11:32 /es/ [facility] Advanced Practice Nurse, Orthopedics 11/14/2024 ADDENDUM STATUS: COMPLETED please overngight CHLORHEXIDINE GLUCONATE 4% TOP LIQUID and Mupirocin ointment.No need to cancel procedure. cc GURVINDER REEVES /brianda/ PERFECTO ORTEGA Advanced Practice Nurse, Orthopedics Signed: 11/14/2024 11:34 Receipt Acknowledged By: 11/14/2024 13:08 /brianda/ GURVINDER REEVES 11/15/2024 ADDENDUM STATUS: COMPLETED Repeat labs have not been completed. Can they still be done prior to surgery on 11/18/24? /es/ ANDER LONGO PA-C Physician Sales Consultant, Anesthesiology Signed: 11/15/2024 16:10 Receipt Acknowledged By: 11/16/2024 09:26 /es/ ALONDRA BRYANT Staff Physician 11/16/2024 06:05 /es/ [facility] Advanced Practice Nurse, Orthopedics 11/16/2024 ADDENDUM STATUS: COMPLETED Patient plans to come get labs today hopefully. /brianda/ ALONDRA BRYANT Staff Physician Signed: 11/16/2024 09:27 ANDER LONGO [facility] Nov 15, 2024 04:10 PM ADDENDUM: LOCAL TITLE: Addendum STANDARD TITLE: ADDENDUM DATE OF NOTE: NOV 15, 2024@16:10:11 ENTRY DATE: NOV 15, 2024@16:10:12 AUTHOR: ANDER LONGO EXP COSIGNER: URGENCY: STATUS: COMPLETED Repeat labs have not been completed. Can they still be done prior to surgery on 11/18/24? /brianda/ ANDER LONGO PA-C Physician Sales Consultant, Anesthesiology Signed: 11/15/2024 16:10 Receipt Acknowledged By: 11/16/2024 09:26 /brianda/ ALONDRA BRYANT Staff Physician 11/16/2024 06:05 /brianda/ PERFECTO BOLES ANP- Advanced Practice Nurse, Orthopedics --- Original Document --- 11/01/24 ANESTHESIA PREOPERATIVE EVALUATION CONSULT STL: I have reviewed pertinent CPRS documentation in the electronic medical record for this patient. The recommendations/findings offered are the result of information from the requesting provider, a chart review, and IN PERSON CLINIC VISIT. JOYCELYN SEPULVEDA is a 78 year old MALE Pre-Operative Diagnosis: right knee osteoarthritis Surgical Procedure: RTKA 11/18/24 VITALS Age: 78 Weight: 207 lb [93.89 kg] (10/31/2024 11:03) Height: 67 in [170.2 cm] (10/27/2024 09:33) BMI: 32.5 Blood pressure: 143/77 (10/27/2024 09:33) Pulse: 67 (10/27/2024 09:33) Temperature: 97.5 F [36.4 C] (10/27/2024 09:33) Respiration: 18 (10/27/2024 09:33) SpO2: 92% (10/27/2024 09:33) Pain: 0 (08/15/2024 10:13) ALLERGIES Patient has answered NKA MEDICATIONS RXAE - Active/Exp Opt Meds 1) BUPROPION HCL 300MG 24HR SA TAB ACTIVE TAKE ONE TABLET BY MOUTH ONCE A DAY FOR DEPRESSION SWALLOW WHOLE - DO NOT CRUSH OR CHEW. 2) CALCIUM 500MG (CA CARB-1.25GM) TAB ACTIVE TAKE TWO TABLETS BY MOUTH TWICE A DAY FOR CALCIUM SUPPLEMENTATION 3) CETIRIZINE HCL 10MG TAB ACTIVE TAKE ONE TABLET BY MOUTH ONCE A DAY FOR ALLERGY SYMPTOMS 4) CYCLOBENZAPRINE HCL 10MG TAB ACTIVE TAKE ONE TABLET BY MOUTH THREE TIMES A DAY NEEDED FOR MUSCLE SPASM MAY CAUSE DROWSINESS. DO NOT DRINK ALCOHOL WHILE TAKING THIS MEDICATION. 5) DULOXETINE HCL 30MG EC CAP ACTIVE TAKE THREE CAPSULES BY MOUTH ONCE A DAY FOR DEPRESSION DO NOT ABRUPTLY DISCONTINUE MEDICATION. 6) ERGOCALCIF 1,250MCG (D2-50,000UNIT) CAP ACTIVE TAKE ONE CAPSULE BY MOUTH EVERY WEEK FOR VITAMIN D DEFICIENCY 7) FINASTERIDE 5MG TAB ACTIVE TAKE ONE TABLET BY MOUTH ONCE A DAY SWALLOW WHOLE, DO NOT CRUSH, SPLIT, OR CHEW. 8) FLUTICASONE PROP 50MCG 120D NASAL INHL ACTIVE INSTILL 2 SPRAYS IN NOSTRIL(S) ONCE A DAY FOR RHINITIS (MUST BE USED DIRECTED FOR MINIMUM OF 21 DAYS TO PROVIDE ADEQUATE BENEFITS) 9) HYDROCHLOROTHIAZIDE 25MG TAB ACTIVE TAKE ONE TABLET BY MOUTH ONCE A DAY FOR HIGH BLOOD PRESSURE 10) LISINOPRIL 20MG TAB ACTIVE TAKE ONE-HALF TABLET BY MOUTH ONCE A DAY FOR HIGH BLOOD PRESSURE 11) SODIUM FLUORIDE 1.1% TOOTHPASTE ACTIVE USE DIRECTED BY MOUTH TWICE A DAY FOR DENTAL CARIES TOOTHPASTE (DO NOT SWALLOW) APPLY A PEA-SIZED AMOUNT OF THE PASTE TO A TOOTHBRUSH AND BRUSH THOROUGHLY FOR TWO MINUTES, AT MORNING AND AT NIGHT; SPIT, DO NOT RINSE. DO NOT EAT, DRINK, OR RINSE FOR 30 MINUTES AFTER USE. 12) SUNSCREEN 30-50/PHY BLOCK/PABA-F LOTION ACTIVE APPLY LIBERALLY TO AFFECTED AREA(S) DIRECTED FOR SKIN PROTECTION (EXTERNAL USE ONLY) 13) TAMSULOSIN HCL 0.4MG CAP ACTIVE TAKE ONE CAPSULE BY MOUTH EVERY EVENING FOR BENIGN PROSTATIC HYPERPLASIA APPROXIMATELY 30 MINUTES AFTER THE SAME MEAL EACH DAY 14) TRAZODONE HCL 50MG TAB ACTIVE TAKE ONE-HALF TABLET BY MOUTH AT BEDTIME FOR SLEEP 15) ATORVASTATIN CALCIUM 80MG TAB ACTIVE/S TAKE ONE-HALF TABLET BY MOUTH EVERY EVENING FOR HIGH CHOLESTEROL Legend: ACTIVE/S means that the RX is 'active' and suspended for mailout. LABS WBC 4.8 10*3/uL (10/27/24 10:29) HGB 13.1 g/dL 10/27/2024 10:29 HCT 38.8 % (10/27/24 10:29) PLT 240 10*3/uL 10/27/2024 10:29 PT 11.3 sec (10/27/24 10:30) INR 1.0 INR (10/27/24 10:30) No PTT EO data found SODIUM 129 L mEq/L 11/01/2024 12:05 POTASSIUM 3.6 mEq/L 11/01/2024 12:05 CHLORIDE 98 mEq/L 11/01/2024 12:05 UREA NITROGEN 16.5 mg/dL 11/01/2024 12:05 CREATININE 1.03 mg/dL 11/01/2024 12:05 CALCIUM 8.7 mg/dL 11/01/2024 12:05 CARBON DIOXIDE 23 mEq/L 11/01/2024 12:05 GLUCOSE 93 mg/dL 11/01/2024 12:05 EGFR (CKD-EPI 2020) 74.4 11/01/2024 12:05 PROTEIN 6.7 g/dL 10/27/2024 10:30 ALBUMIN 4.0 g/dL 10/27/2024 10:30 ALKALINE PHOSPHATASE 82 U/L 10/27/2024 10:30 SGPT/ALT 30 U/L (10/27/24 10:30) SGOT/AST 30 U/L (10/27/24 10:30) TOTAL BILIRUBIN 0.6 mg/dL 10/27/2024 10:30 HGA1C 5.9 % 10/27/2024 10:30 AMPHET/METHAMPHETAMINE Negative ng/mL 11/01/2024 12:05 BENZODIAZEPINES (STL) Negative ng/mL 11/01/2024 12:05 CANNABINOIDS Negative ng/mL 11/01/2024 12:05 COCAINE METABOLITES Negative ng/mL 11/01/2024 12:05 OPIATES Negative ng/mL 11/01/2024 12:05 No HIV SCREENING EO data found [facility] Hep C tests in last five years. *No Lab Data Found* DIAGNOSTICS EKG 10/06/24: Normal sinus rhythm Possible Inferior infarct , age undetermined Abnormal ECG No previous ECGs available CXR: Impression for CHEST X-RAY, 2 VIEWS, 10/06/24, case [id number] No acute disease NM STRESS TEST 11/01/24: Impression: 1. Normal SPECT myocardial imaging without evidence of stress-induced ischemia or infarction. 2. Normal left ventricle contractility with LVEF of 72%. PROBLEM LIST 1) HTN - Hypertension ([facility] [id number]) 2) Hyperlipidemia ([facility] [id number]) 3) Sleep apnoea comment: using bipap 4) H/O: Stroke ([facility] [id number]) comment: L footdrop; wears brace; L leg weaker than R comment: using straight or quad cane 5) B-cell lymphoma comment: followed by hematology 6) Anxiety ([facility] [id number]) 7) Depression ([facility] [id number]) 8) Chronic kidney disease 9) Pes planus 10) Chronic post-traumatic stress disorder 11) Exposure to potentially hazardous substance 12) History of malignant neoplasm of skin REVIEW OF SYSTEMS/PAST MEDICAL HISTORY: Functional capacity: >4 METs, able to walk 2 city blocks or climb 1 flight of stairs - limitation is knee pain/giving out, and Leg weakness since CVA RESPIRATORY for: - Recent or current SOB + Sleep apnea, uses BiPAP, most nights, occasionall mask leaks - Asthma - COPD - recent URI symptoms CARDIAC for: - Recent chest pain + Hypertension, controlled + Hyperlipidemia - Myocardial infarction - Coronary artery disease - Heart failure - Valvular disease - Atrial fibrillation/flutter - orthopnea - syncope PSYCH/CENTRAL NERVOUS for: + Depression + Anxiety + Post-traumatic stress disorder + Cerebral vascular accident 2010, hemorrhagic, residual L foot drop/leg nd arm weakness - Seizures ENDOCRINE for: - Diabetes - Hypothyroid + hyponatremia RENAL for: + hx CRI - Nephrolithiasis GI for: - GERD - Liver disease - GI bleed VASCULAR/HEMATOLOGY/ONCOLOGY for: - Anemia - Thrombocytopenia - Bleeding disorders + B-cell lymphoma treated with chemo (BR per Hem/Onc) 2017 Bendamustine/Rituximab + melanoma s/p resection MUSCULOSKELETAL/SKIN/PERIPHER AL NERVOUS for: + Obesity + Arthritis/Degenerative joint disease - Rheumatoid arthritis - Neuropathy /REPRODUCTIVE for: + Prostate hypertrophy HABITS: Alcohol: rare Tobacco: quit 50 yrs ago Other drugs: none SURGICAL HISTORY: lymph node excision, melanoma excision from ear, colonoscopies Previous anesthesia complications: None Family history of anesthesia complications: None PHYSICAL EXAM: Auscultation Finding: Heart Sounds: Regular Rate, Regular Rhythm Breath Sounds: Clear, no wheezes/rales/rhonchi AIRWAY: MP CLASS: 1 SUBMANDIBULAR SPACE: 3 fingerbreadths RANGE OF MOTION: FULL TEETH: Intact BETA BLOCKERS: NONE RECOMMENDATIONS/PLAN: 1. This patient was discussed with Dr. Ashby. 2. Additional labs/imaging/consults needed for anesthesia team: Pt with hyponatremia since 2021 (135-133), now 126 last week, 129 today. Will cc the patient's PCP. Hyponatremia will need to be evaluated prior to surgery. If possible, Na will need to be corrected at least closer to his baseline. 3. NPO after midnight except for small sips of water with meds. 4. Unless directed by procedural team, take morning medications with a sip of water EXCEPT: Hold Lisinopril and HCTZ AM of surgery 5. They should bring his BiPAP machine with them. Time spent reviewing patient's [facility] medical records: 45 min Time spent in consultation with the patient: 20 minutes /brianda/ ANDER LONGO PA-C Physician Sales Consultant, Anesthesiology Signed: 11/01/2024 15:38 Receipt Acknowledged By: 11/01/2024 15:48 /es/ ALONDRA BRYANT Staff Physician 11/01/2024 22:21 /es/ LUKAS ASHBY MD STAFF ANESTHESIOLOGIST 11/02/2024 08:34 /es/ PERFECTO BOLES [facility] Advanced Practice Nurse, Orthopedics 11/01/2024 ADDENDUM STATUS: COMPLETED Reviewed JLV, has had intermittent low sodium going back several years, has never been as low as recently. Has also been on HCTZ for several years--this can be a cause of low sodium. I recommend he hold hydrochlorothiazide for the next week and then will recheck his BMP again next week. Lab can be done at the [facility]. /brianda/ ALONDRA BRYANT Staff Physician Signed: 11/01/2024 16:02 Receipt Acknowledged By: 11/03/2024 10:35 /es/ Contreras Barrett Rn, BSN REGISTERED NURSE 11/14/2024 ADDENDUM STATUS: COMPLETED [place] sent secure message stating he is having surgery this week and is wondering when he is going to receive soap to use. States he was told to use it for 5 days before procedure. Appears procedure is scheduled for 11/18/24. most likely is referring to CHLORHEXIDINE GLUCONATE 4% TOP LIQUID. Rx for this was never entered. Not sure if procedure needs to be postponed, but even if sent overnight would only have three days to use before procedure. Gurvinder Reeves, PharmD. /brianda/ GURVINDER REEVES Signed: 11/14/2024 09:51 Receipt Acknowledged By: 11/14/2024 11:32 /es/ [facility]O [facility] Advanced Practice Nurse, Orthopedics 11/14/2024 ADDENDUM STATUS: COMPLETED please overngight CHLORHEXIDINE GLUCONATE 4% TOP LIQUID and Mupirocin ointment.No need to cancel procedure. cc GURVINDER REEVES /brianda/ [facility]O [facility] Advanced Practice Nurse, Orthopedics Signed: 11/14/2024 11:34 Receipt Acknowledged By: 11/14/2024 13:08 /brianda/ ANDER FRANCISCO [facility] Nov 14, 2024 11:32 AM ADDENDUM: LOCAL TITLE: Addendum STANDARD TITLE: ADDENDUM DATE OF NOTE: NOV 14, 2024@11:32:43 ENTRY DATE: NOV 14, 2024@11:32:44 AUTHOR: PERFECTO BOLES EXP COSIGNER: URGENCY: STATUS: COMPLETED please overngight CHLORHEXIDINE GLUCONATE 4% TOP LIQUID and Mupirocin ointment.No need to cancel procedure. cc GURVINDER REEVES /brianda/ [facility]ETO [facility] Advanced Practice Nurse, Orthopedics Signed: 11/14/2024 11:34 Receipt Acknowledged By: 11/14/2024 13:08 /brianda/ GURVINDER REEVES --- Original Document --- 11/01/24 ANESTHESIA PREOPERATIVE EVALUATION CONSULT STL: I have reviewed pertinent CPRS documentation in the electronic medical record for this patient. The recommendations/findings offered are the result of information from the requesting provider, a chart review, and IN PERSON CLINIC VISIT. JOYCELYN SEPULVEDA is a 78 year old MALE Pre-Operative Diagnosis: right knee osteoarthritis Surgical Procedure: RTKA 11/18/24 VITALS Age: 78 Weight: 207 lb [93.89 kg] (10/31/2024 11:03) Height: 67 in [170.2 cm] (10/27/2024 09:33) BMI: 32.5 Blood pressure: 143/77 (10/27/2024 09:33) Pulse: 67 (10/27/2024 09:33) Temperature: 97.5 F [36.4 C] (10/27/2024 09:33) Respiration: 18 (10/27/2024 09:33) SpO2: 92% (10/27/2024 09:33) Pain: 0 (08/15/2024 10:13) ALLERGIES Patient has answered NKA MEDICATIONS RXAE - Active/Exp Opt Meds 1) BUPROPION HCL 300MG 24HR SA TAB ACTIVE TAKE ONE TABLET BY MOUTH ONCE A DAY FOR DEPRESSION SWALLOW WHOLE - DO NOT CRUSH OR CHEW. 2) CALCIUM 500MG (CA CARB-1.25GM) TAB ACTIVE TAKE TWO TABLETS BY MOUTH TWICE A DAY FOR CALCIUM SUPPLEMENTATION 3) CETIRIZINE HCL 10MG TAB ACTIVE TAKE ONE TABLET BY MOUTH ONCE A DAY FOR ALLERGY SYMPTOMS 4) CYCLOBENZAPRINE HCL 10MG TAB ACTIVE TAKE ONE TABLET BY MOUTH THREE TIMES A DAY NEEDED FOR MUSCLE SPASM MAY CAUSE DROWSINESS. DO NOT DRINK ALCOHOL WHILE TAKING THIS MEDICATION. 5) DULOXETINE HCL 30MG EC CAP ACTIVE TAKE THREE CAPSULES BY MOUTH ONCE A DAY FOR DEPRESSION DO NOT ABRUPTLY DISCONTINUE MEDICATION. 6) ERGOCALCIF 1,250MCG (D2-50,000UNIT) CAP ACTIVE TAKE ONE CAPSULE BY MOUTH EVERY WEEK FOR VITAMIN D DEFICIENCY 7) FINASTERIDE 5MG TAB ACTIVE TAKE ONE TABLET BY MOUTH ONCE A DAY SWALLOW WHOLE, DO NOT CRUSH, SPLIT, OR CHEW. 8) FLUTICASONE PROP 50MCG 120D NASAL INHL ACTIVE INSTILL 2 SPRAYS IN NOSTRIL(S) ONCE A DAY FOR RHINITIS (MUST BE USED DIRECTED FOR MINIMUM OF 21 DAYS TO PROVIDE ADEQUATE BENEFITS) 9) HYDROCHLOROTHIAZIDE 25MG TAB ACTIVE TAKE ONE TABLET BY MOUTH ONCE A DAY FOR HIGH BLOOD PRESSURE 10) LISINOPRIL 20MG TAB ACTIVE TAKE ONE-HALF TABLET BY MOUTH ONCE A DAY FOR HIGH BLOOD PRESSURE 11) SODIUM FLUORIDE 1.1% TOOTHPASTE ACTIVE USE DIRECTED BY MOUTH TWICE A DAY FOR DENTAL CARIES TOOTHPASTE (DO NOT SWALLOW) APPLY A PEA-SIZED AMOUNT OF THE PASTE TO A TOOTHBRUSH AND BRUSH THOROUGHLY FOR TWO MINUTES, AT MORNING AND AT NIGHT; SPIT, DO NOT RINSE. DO NOT EAT, DRINK, OR RINSE FOR 30 MINUTES AFTER USE. 12) SUNSCREEN 30-50/PHY BLOCK/PABA-F LOTION ACTIVE APPLY LIBERALLY TO AFFECTED AREA(S) DIRECTED FOR SKIN PROTECTION (EXTERNAL USE ONLY) 13) TAMSULOSIN HCL 0.4MG CAP ACTIVE TAKE ONE CAPSULE BY MOUTH EVERY EVENING FOR BENIGN PROSTATIC HYPERPLASIA APPROXIMATELY 30 MINUTES AFTER THE SAME MEAL EACH DAY 14) TRAZODONE HCL 50MG TAB ACTIVE TAKE ONE-HALF TABLET BY MOUTH AT BEDTIME FOR SLEEP 15) ATORVASTATIN CALCIUM 80MG TAB ACTIVE/S TAKE ONE-HALF TABLET BY MOUTH EVERY EVENING FOR HIGH CHOLESTEROL Legend: ACTIVE/S means that the RX is 'active' and suspended for mailout. LABS WBC 4.8 10*3/uL (10/27/24 10:29) HGB 13.1 g/dL 10/27/2024 10:29 HCT 38.8 % (10/27/24 10:29) PLT 240 10*3/uL 10/27/2024 10:29 PT 11.3 sec (10/27/24 10:30) INR 1.0 INR (10/27/24 10:30) No PTT EO data found SODIUM 129 L mEq/L 11/01/2024 12:05 POTASSIUM 3.6 mEq/L 11/01/2024 12:05 CHLORIDE 98 mEq/L 11/01/2024 12:05 UREA NITROGEN 16.5 mg/dL 11/01/2024 12:05 CREATININE 1.03 mg/dL 11/01/2024 12:05 CALCIUM 8.7 mg/dL 11/01/2024 12:05 CARBON DIOXIDE 23 mEq/L 11/01/2024 12:05 GLUCOSE 93 mg/dL 11/01/2024 12:05 EGFR (CKD-EPI 2020) 74.4 11/01/2024 12:05 PROTEIN 6.7 g/dL 10/27/2024 10:30 ALBUMIN 4.0 g/dL 10/27/2024 10:30 ALKALINE PHOSPHATASE 82 U/L 10/27/2024 10:30 SGPT/ALT 30 U/L (10/27/24 10:30) SGOT/AST 30 U/L (10/27/24 10:30) TOTAL BILIRUBIN 0.6 mg/dL 10/27/2024 10:30 HGA1C 5.9 % 10/27/2024 10:30 AMPHET/METHAMPHETAMINE Negative ng/mL 11/01/2024 12:05 BENZODIAZEPINES (STL) Negative ng/mL 11/01/2024 12:05 CANNABINOIDS Negative ng/mL 11/01/2024 12:05 COCAINE METABOLITES Negative ng/mL 11/01/2024 12:05 OPIATES Negative ng/mL 11/01/2024 12:05 No HIV SCREENING EO data found [facility] Hep C tests in last five years. *No Lab Data Found* DIAGNOSTICS EKG 10/06/24: Normal sinus rhythm Possible Inferior infarct , age undetermined Abnormal ECG No previous ECGs available CXR: Impression for CHEST X-RAY, 2 VIEWS, 10/06/24, case [id number] No acute disease NM STRESS TEST 11/01/24: Impression: 1. Normal SPECT myocardial imaging without evidence of stress-induced ischemia or infarction. 2. Normal left ventricle contractility with LVEF of 72%. PROBLEM LIST 1) HTN - Hypertension ([facility] [id number]) 2) Hyperlipidemia ([facility] [id number]) 3) Sleep apnoea comment: using bipap 4) H/O: Stroke ([facility] [id number]) comment: L footdrop; wears brace; L leg weaker than R comment: using straight or quad cane 5) B-cell lymphoma comment: followed by hematology 6) Anxiety ([facility] [id number]) 7) Depression ([facility] [id number]) 8) Chronic kidney disease 9) Pes planus 10) Chronic post-traumatic stress disorder 11) Exposure to potentially hazardous substance 12) History of malignant neoplasm of skin REVIEW OF SYSTEMS/PAST MEDICAL HISTORY: Functional capacity: >4 METs, able to walk 2 city blocks or climb 1 flight of stairs - limitation is knee pain/giving out, and Leg weakness since CVA RESPIRATORY for: - Recent or current SOB + Sleep apnea, uses BiPAP, most nights, occasionall mask leaks - Asthma - COPD - recent URI symptoms CARDIAC for: - Recent chest pain + Hypertension, controlled + Hyperlipidemia - Myocardial infarction - Coronary artery disease - Heart failure - Valvular disease - Atrial fibrillation/flutter - orthopnea - syncope PSYCH/CENTRAL NERVOUS for: + Depression + Anxiety + Post-traumatic stress disorder + Cerebral vascular accident 2010, hemorrhagic, residual L foot drop/leg nd arm weakness - Seizures ENDOCRINE for: - Diabetes - Hypothyroid + hyponatremia RENAL for: + hx CRI - Nephrolithiasis GI for: - GERD - Liver disease - GI bleed VASCULAR/HEMATOLOGY/ONCOLOGY for: - Anemia - Thrombocytopenia - Bleeding disorders + B-cell lymphoma treated with chemo (BR per Hem/Onc) 2016 Bendamustine/Rituximab + melanoma s/p resection MUSCULOSKELETAL/SKIN/PERIPHER AL NERVOUS for: + Obesity + Arthritis/Degenerative joint disease - Rheumatoid arthritis - Neuropathy /REPRODUCTIVE for: + Prostate hypertrophy HABITS: Alcohol: rare Tobacco: quit 50 yrs ago Other drugs: none SURGICAL HISTORY: lymph node excision, melanoma excision from ear, colonoscopies Previous anesthesia complications: None Family history of anesthesia complications: None PHYSICAL EXAM: Auscultation Finding: Heart Sounds: Regular Rate, Regular Rhythm Breath Sounds: Clear, no wheezes/rales/rhonchi AIRWAY: MP CLASS: 1 SUBMANDIBULAR SPACE: 3 fingerbreadths RANGE OF MOTION: FULL TEETH: Intact BETA BLOCKERS: NONE RECOMMENDATIONS/PLAN: 1. This patient was discussed with Dr. Ashby. 2. Additional labs/imaging/consults needed for anesthesia team: Pt with hyponatremia since 2021 (135-133), now 126 last week, 129 today. Will cc the patient's PCP. Hyponatremia will need to be evaluated prior to surgery. If possible, Na will need to be corrected at least closer to his baseline. 3. NPO after midnight except for small sips of water with meds. 4. Unless directed by procedural team, take morning medications with a sip of water EXCEPT: Hold Lisinopril and HCTZ AM of surgery 5. They should bring his BiPAP machine with them. Time spent reviewing patient's NH medical records: 45 min Time spent in consultation with the patient: 20 minutes /es/ ANDER LONGO PA-C Physician Sales Consultant, Anesthesiology Signed: 11/01/2024 15:38 Receipt Acknowledged By: 11/01/2024 15:48 /es/ ALONDRA BRYANT Staff Physician 11/01/2024 22:21 /es/ LUKAS ASHBY MD STAFF ANESTHESIOLOGIST 11/02/2024 08:34 /es/ PERFECTO BOLES ANP- Advanced Practice Nurse, Orthopedics 11/01/2024 ADDENDUM STATUS: COMPLETED Reviewed JLV, has had intermittent low sodium going back several years, has never been as low as recently. Has also been on HCTZ for several years--this can be a cause of low sodium. I recommend he hold hydrochlorothiazide for the next week and then will recheck his BMP again next week. Lab can be done at the [facility]. /es/ ALONDRA BRYANT Staff Physician Signed: 11/01/2024 16:02 Receipt Acknowledged By: 11/03/2024 10:35 /es/ Contreras Barrett Rn, BSN REGISTERED NURSE 11/14/2024 ADDENDUM STATUS: COMPLETED [place] sent secure message stating he is having surgery this week and is wondering when he is going to receive soap to use. States he was told to use it for 5 days before procedure. Appears procedure is scheduled for 11/18/24. most likely is referring to CHLORHEXIDINE GLUCONATE 4% TOP LIQUID. Rx for this was never entered. Not sure if procedure needs to be postponed, but even if sent overnight would only have three days to use before procedure. Gurvinder Reeves, PharmD. /es/ GURVINDER REEVES Signed: 11/14/2024 09:51 Receipt Acknowledged By: 11/14/2024 11:32 /brianda/ PERFECTO BOLES [facility]- Advanced Practice Nurse, Orthopedics PERFECTO BOLES [facility] Nov 14, 2024 09:46 AM ADDENDUM: LOCAL TITLE: Addendum STANDARD TITLE: ADDENDUM DATE OF NOTE: NOV 14, 2024@09:46:04 ENTRY DATE: NOV 14, 2024@09:46:05 AUTHOR: GURVINDER REEVES EXP COSIGNER: URGENCY: STATUS: COMPLETED sent secure message stating he is having surgery this week and is wondering when he is going to receive soap to use. States he was told to use it for 5 days before procedure. Appears procedure is scheduled for 11/18/24. [place] most likely is referring to CHLORHEXIDINE GLUCONATE 4% TOP LIQUID. Rx for this was never entered. Not sure if procedure needs to be postponed, but even if sent overnight would only have three days to use before procedure. Gurvinder Reeves, PharmD. /es/ GURVINDER REEVES Signed: 11/14/2024 09:51 Receipt Acknowledged By: * AWAITING SIGNATURE * LONGOANDER Pankaj 11/14/2024 11:32 /es/ PERFECTO BOLES [facility]- Advanced Practice Nurse, Orthopedics --- Original Document --- 11/01/24 ANESTHESIA PREOPERATIVE EVALUATION CONSULT STL: I have reviewed pertinent CPRS documentation in the electronic medical record for this patient. The recommendations/findings offered are the result of information from the requesting provider, a chart review, and IN PERSON CLINIC VISIT. JOYCELYN SEPULVEDA is a 78 year old MALE Pre-Operative Diagnosis: right knee osteoarthritis Surgical Procedure: RTKA 11/18/24 VITALS Age: 78 Weight: 207 lb [93.89 kg] (10/31/2024 11:03) Height: 67 in [170.2 cm] (10/27/2024 09:33) BMI: 32.5 Blood pressure: 143/77 (10/27/2024 09:33) Pulse: 67 (10/27/2024 09:33) Temperature: 97.5 F [36.4 C] (10/27/2024 09:33) Respiration: 18 (10/27/2024 09:33) SpO2: 92% (10/27/2024 09:33) Pain: 0 (08/15/2024 10:13) ALLERGIES Patient has answered NKA MEDICATIONS RXAE - Active/Exp Opt Meds 1) BUPROPION HCL 300MG 24HR SA TAB ACTIVE TAKE ONE TABLET BY MOUTH ONCE A DAY FOR DEPRESSION SWALLOW WHOLE - DO NOT CRUSH OR CHEW. 2) CALCIUM 500MG (CA CARB-1.25GM) TAB ACTIVE TAKE TWO TABLETS BY MOUTH TWICE A DAY FOR CALCIUM SUPPLEMENTATION 3) CETIRIZINE HCL 10MG TAB ACTIVE TAKE ONE TABLET BY MOUTH ONCE A DAY FOR ALLERGY SYMPTOMS 4) CYCLOBENZAPRINE HCL 10MG TAB ACTIVE TAKE ONE TABLET BY MOUTH THREE TIMES A DAY NEEDED FOR MUSCLE SPASM MAY CAUSE DROWSINESS. DO NOT DRINK ALCOHOL WHILE TAKING THIS MEDICATION. 5) DULOXETINE HCL 30MG EC CAP ACTIVE TAKE THREE CAPSULES BY MOUTH ONCE A DAY FOR DEPRESSION DO NOT ABRUPTLY DISCONTINUE MEDICATION. 6) ERGOCALCIF 1,250MCG (D2-50,000UNIT) CAP ACTIVE TAKE ONE CAPSULE BY MOUTH EVERY WEEK FOR VITAMIN D DEFICIENCY 7) FINASTERIDE 5MG TAB ACTIVE TAKE ONE TABLET BY MOUTH ONCE A DAY SWALLOW WHOLE, DO NOT CRUSH, SPLIT, OR CHEW. 8) FLUTICASONE PROP 50MCG 120D NASAL INHL ACTIVE INSTILL 2 SPRAYS IN NOSTRIL(S) ONCE A DAY FOR RHINITIS (MUST BE USED DIRECTED FOR MINIMUM OF 21 DAYS TO PROVIDE ADEQUATE BENEFITS) 9) HYDROCHLOROTHIAZIDE 25MG TAB ACTIVE TAKE ONE TABLET BY MOUTH ONCE A DAY FOR HIGH BLOOD PRESSURE 10) LISINOPRIL 20MG TAB ACTIVE TAKE ONE-HALF TABLET BY MOUTH ONCE A DAY FOR HIGH BLOOD PRESSURE 11) SODIUM FLUORIDE 1.1% TOOTHPASTE ACTIVE USE DIRECTED BY MOUTH TWICE A DAY FOR DENTAL CARIES TOOTHPASTE (DO NOT SWALLOW) APPLY A PEA-SIZED AMOUNT OF THE PASTE TO A TOOTHBRUSH AND BRUSH THOROUGHLY FOR TWO MINUTES, AT MORNING AND AT NIGHT; SPIT, DO NOT RINSE. DO NOT EAT, DRINK, OR RINSE FOR 30 MINUTES AFTER USE. 12) SUNSCREEN 30-50/PHY BLOCK/PABA-F LOTION ACTIVE APPLY LIBERALLY TO AFFECTED AREA(S) DIRECTED FOR SKIN PROTECTION (EXTERNAL USE ONLY) 13) TAMSULOSIN HCL 0.4MG CAP ACTIVE TAKE ONE CAPSULE BY MOUTH EVERY EVENING FOR BENIGN PROSTATIC HYPERPLASIA APPROXIMATELY 30 MINUTES AFTER THE SAME MEAL EACH DAY 14) TRAZODONE HCL 50MG TAB ACTIVE TAKE ONE-HALF TABLET BY MOUTH AT BEDTIME FOR SLEEP 15) ATORVASTATIN CALCIUM 80MG TAB ACTIVE/S TAKE ONE-HALF TABLET BY MOUTH EVERY EVENING FOR HIGH CHOLESTEROL Legend: ACTIVE/S means that the RX is 'active' and suspended for mailout. LABS WBC 4.8 10*3/uL (10/27/24 10:29) HGB 13.1 g/dL 10/27/2024 10:29 HCT 38.8 % (10/27/24 10:29) PLT 240 10*3/uL 10/27/2024 10:29 PT 11.3 sec (10/27/24 10:30) INR 1.0 INR (10/27/24 10:30) No PTT EO data found SODIUM 129 L mEq/L 11/01/2024 12:05 POTASSIUM 3.6 mEq/L 11/01/2024 12:05 CHLORIDE 98 mEq/L 11/01/2024 12:05 UREA NITROGEN 16.5 mg/dL 11/01/2024 12:05 CREATININE 1.03 mg/dL 11/01/2024 12:05 CALCIUM 8.7 mg/dL 11/01/2024 12:05 CARBON DIOXIDE 23 mEq/L 11/01/2024 12:05 GLUCOSE 93 mg/dL 11/01/2024 12:05 EGFR (CKD-EPI 2020) 74.4 11/01/2024 12:05 PROTEIN 6.7 g/dL 10/27/2024 10:30 ALBUMIN 4.0 g/dL 10/27/2024 10:30 ALKALINE PHOSPHATASE 82 U/L 10/27/2024 10:30 SGPT/ALT 30 U/L (10/27/24 10:30) SGOT/AST 30 U/L (10/27/24 10:30) TOTAL BILIRUBIN 0.6 mg/dL 10/27/2024 10:30 HGA1C 5.9 % 10/27/2024 10:30 AMPHET/METHAMPHETAMINE Negative ng/mL 11/01/2024 12:05 BENZODIAZEPINES (STL) Negative ng/mL 11/01/2024 12:05 CANNABINOIDS Negative ng/mL 11/01/2024 12:05 COCAINE METABOLITES Negative ng/mL 11/01/2024 12:05 OPIATES Negative ng/mL 11/01/2024 12:05 No HIV SCREENING EO data found [facility] Hep C tests in last five years. *No Lab Data Found* DIAGNOSTICS EKG 10/06/24: Normal sinus rhythm Possible Inferior infarct , age undetermined Abnormal ECG No previous ECGs available CXR: Impression for CHEST X-RAY, 2 VIEWS, 10/06/24, case [id number] No acute disease NM STRESS TEST 11/01/24: Impression: 1. Normal SPECT myocardial imaging without evidence of stress-induced ischemia or infarction. 2. Normal left ventricle contractility with LVEF of 72%. PROBLEM LIST 1) HTN - Hypertension ([facility] [id number]) 2) Hyperlipidemia ([facility] [id number]) 3) Sleep apnoea comment: using bipap 4) H/O: Stroke ([facility] [id number]) comment: L footdrop; wears brace; L leg weaker than R comment: using straight or quad cane 5) B-cell lymphoma comment: followed by hematology 6) Anxiety ([facility] [id number]) 7) Depression ([facility] [id number]) 8) Chronic kidney disease 9) Pes planus 10) Chronic post-traumatic stress disorder 11) Exposure to potentially hazardous substance 12) History of malignant neoplasm of skin REVIEW OF SYSTEMS/PAST MEDICAL HISTORY: Functional capacity: >4 METs, able to walk 2 city blocks or climb 1 flight of stairs - limitation is knee pain/giving out, and Leg weakness since CVA RESPIRATORY for: - Recent or current SOB + Sleep apnea, uses BiPAP, most nights, occasionall mask leaks - Asthma - COPD - recent URI symptoms CARDIAC for: - Recent chest pain + Hypertension, controlled + Hyperlipidemia - Myocardial infarction - Coronary artery disease - Heart failure - Valvular disease - Atrial fibrillation/flutter - orthopnea - syncope PSYCH/CENTRAL NERVOUS for: + Depression + Anxiety + Post-traumatic stress disorder + Cerebral vascular accident 2010, hemorrhagic, residual L foot drop/leg nd arm weakness - Seizures ENDOCRINE for: - Diabetes - Hypothyroid + hyponatremia RENAL for: + hx CRI - Nephrolithiasis GI for: - GERD - Liver disease - GI bleed VASCULAR/HEMATOLOGY/ONCOLOGY for: - Anemia - Thrombocytopenia - Bleeding disorders + B-cell lymphoma treated with chemo (BR per Hem/Onc) 2017 Bendamustine/Rituximab + melanoma s/p resection MUSCULOSKELETAL/SKIN/PERIPHER AL NERVOUS for: + Obesity + Arthritis/Degenerative joint disease - Rheumatoid arthritis - Neuropathy /REPRODUCTIVE for: + Prostate hypertrophy HABITS: Alcohol: rare Tobacco: quit 50 yrs ago Other drugs: none SURGICAL HISTORY: lymph node excision, melanoma excision from ear, colonoscopies Previous anesthesia complications: None Family history of anesthesia complications: None PHYSICAL EXAM: Auscultation Finding: Heart Sounds: Regular Rate, Regular Rhythm Breath Sounds: Clear, no wheezes/rales/rhonchi AIRWAY: MP CLASS: 1 SUBMANDIBULAR SPACE: 3 fingerbreadths RANGE OF MOTION: FULL TEETH: Intact BETA BLOCKERS: NONE RECOMMENDATIONS/PLAN: 1. This patient was discussed with Dr. Ashby. 2. Additional labs/imaging/consults needed for anesthesia team: Pt with hyponatremia since 2021 (135-133), now 126 last week, 129 today. Will cc the patient's PCP. Hyponatremia will need to be evaluated prior to surgery. If possible, Na will need to be corrected at least closer to his baseline. 3. NPO after midnight except for small sips of water with meds. 4. Unless directed by procedural team, take morning medications with a sip of water EXCEPT: Hold Lisinopril and HCTZ AM of surgery 5. They should bring his BiPAP machine with them. Time spent reviewing patient's [place] medical records: 45 min Time spent in consultation with the patient: 20 minutes /brianda/ ANDER LONGO PA-C Physician Sales Consultant, Anesthesiology Signed: 11/01/2024 15:38 Receipt Acknowledged By: 11/01/2024 15:48 /es/ ALONDRA BRYANT Staff Physician 11/01/2024 22:21 /es/ LUKAS ASHBY MD STAFF ANESTHESIOLOGIST 11/02/2024 08:34 /es/ PERFECTO BOLES [facility]- Advanced Practice Nurse, Orthopedics 11/01/2024 ADDENDUM STATUS: COMPLETED Reviewed JLV, has had intermittent low sodium going back several years, has never been as low as recently. Has also been on HCTZ for several years--this can be a cause of low sodium. I recommend he hold hydrochlorothiazide for the next week and then will recheck his BMP again next week. Lab can be done at the [facility]. /brianda/ ALONDRA BRYANT Staff Physician Signed: 11/01/2024 16:02 Receipt Acknowledged By: 11/03/2024 10:35 /es/ Contreras Barrett Rn, BSN REGISTERED NURSE GURVINDER REEVES [facility] Nov 01, 2024 03:55 PM ADDENDUM: LOCAL TITLE: Addendum STANDARD TITLE: ADDENDUM DATE OF NOTE: NOV 01, 2024@15:55:14 ENTRY DATE: NOV 01, 2024@15:55:14 AUTHOR: ALONDRA BRYANT EXP COSIGNER: URGENCY: STATUS: COMPLETED Reviewed JLV, has had intermittent low sodium going back several years, has never been as low as recently. Has also been on HCTZ for several years--this can be a cause of low sodium. I recommend he hold hydrochlorothiazide for the next week and then will recheck his BMP again next week. Lab can be done at the [facility]. /brianda/ ALONDRA BRYANT Staff Physician Signed: 11/01/2024 16:02 Receipt Acknowledged By: 11/03/2024 10:35 /es/ Contreras Barrett Rn, BSN REGISTERED NURSE --- Original Document --- 11/01/24 ANESTHESIA PREOPERATIVE EVALUATION CONSULT STL: I have reviewed pertinent CPRS documentation in the electronic medical record for this patient. The recommendations/findings offered are the result of information from the requesting provider, a chart review, and IN PERSON CLINIC VISIT. JOYCELYN SEPULVEDA is a 78 year old MALE Pre-Operative Diagnosis: right knee osteoarthritis Surgical Procedure: RTKA 11/18/24 VITALS Age: 78 Weight: 207 lb [93.89 kg] (10/31/2024 11:03) Height: 67 in [170.2 cm] (10/27/2024 09:33) BMI: 32.5 Blood pressure: 143/77 (10/27/2024 09:33) Pulse: 67 (10/27/2024 09:33) Temperature: 97.5 F [36.4 C] (10/27/2024 09:33) Respiration: 18 (10/27/2024 09:33) SpO2: 92% (10/27/2024 09:33) Pain: 0 (08/15/2024 10:13) ALLERGIES Patient has answered NKA MEDICATIONS RXAE - Active/Exp Opt Meds 1) BUPROPION HCL 300MG 24HR SA TAB ACTIVE TAKE ONE TABLET BY MOUTH ONCE A DAY FOR DEPRESSION SWALLOW WHOLE - DO NOT CRUSH OR CHEW. 2) CALCIUM 500MG (CA CARB-1.25GM) TAB ACTIVE TAKE TWO TABLETS BY MOUTH TWICE A DAY FOR CALCIUM SUPPLEMENTATION 3) CETIRIZINE HCL 10MG TAB ACTIVE TAKE ONE TABLET BY MOUTH ONCE A DAY FOR ALLERGY SYMPTOMS 4) CYCLOBENZAPRINE HCL 10MG TAB ACTIVE TAKE ONE TABLET BY MOUTH THREE TIMES A DAY NEEDED FOR MUSCLE SPASM MAY CAUSE DROWSINESS. DO NOT DRINK ALCOHOL WHILE TAKING THIS MEDICATION. 5) DULOXETINE HCL 30MG EC CAP ACTIVE TAKE THREE CAPSULES BY MOUTH ONCE A DAY FOR DEPRESSION DO NOT ABRUPTLY DISCONTINUE MEDICATION. 6) ERGOCALCIF 1,250MCG (D2-50,000UNIT) CAP ACTIVE TAKE ONE CAPSULE BY MOUTH EVERY WEEK FOR VITAMIN D DEFICIENCY 7) FINASTERIDE 5MG TAB ACTIVE TAKE ONE TABLET BY MOUTH ONCE A DAY SWALLOW WHOLE, DO NOT CRUSH, SPLIT, OR CHEW. 8) FLUTICASONE PROP 50MCG 120D NASAL INHL ACTIVE INSTILL 2 SPRAYS IN NOSTRIL(S) ONCE A DAY FOR RHINITIS (MUST BE USED DIRECTED FOR MINIMUM OF 21 DAYS TO PROVIDE ADEQUATE BENEFITS) 9) HYDROCHLOROTHIAZIDE 25MG TAB ACTIVE TAKE ONE TABLET BY MOUTH ONCE A DAY FOR HIGH BLOOD PRESSURE 10) LISINOPRIL 20MG TAB ACTIVE TAKE ONE-HALF TABLET BY MOUTH ONCE A DAY FOR HIGH BLOOD PRESSURE 11) SODIUM FLUORIDE 1.1% TOOTHPASTE ACTIVE USE DIRECTED BY MOUTH TWICE A DAY FOR DENTAL CARIES TOOTHPASTE (DO NOT SWALLOW) APPLY A PEA-SIZED AMOUNT OF THE PASTE TO A TOOTHBRUSH AND BRUSH THOROUGHLY FOR TWO MINUTES, AT MORNING AND AT NIGHT; SPIT, DO NOT RINSE. DO NOT EAT, DRINK, OR RINSE FOR 30 MINUTES AFTER USE. 12) SUNSCREEN 30-50/PHY BLOCK/PABA-F LOTION ACTIVE APPLY LIBERALLY TO AFFECTED AREA(S) DIRECTED FOR SKIN PROTECTION (EXTERNAL USE ONLY) 13) TAMSULOSIN HCL 0.4MG CAP ACTIVE TAKE ONE CAPSULE BY MOUTH EVERY EVENING FOR BENIGN PROSTATIC HYPERPLASIA APPROXIMATELY 30 MINUTES AFTER THE SAME MEAL EACH DAY 14) TRAZODONE HCL 50MG TAB ACTIVE TAKE ONE-HALF TABLET BY MOUTH AT BEDTIME FOR SLEEP 15) ATORVASTATIN CALCIUM 80MG TAB ACTIVE/S TAKE ONE-HALF TABLET BY MOUTH EVERY EVENING FOR HIGH CHOLESTEROL Legend: ACTIVE/S means that the RX is 'active' and suspended for mailout. LABS WBC 4.8 10*3/uL (10/27/24 10:29) HGB 13.1 g/dL 10/27/2024 10:29 HCT 38.8 % (10/27/24 10:29) PLT 240 10*3/uL 10/27/2024 10:29 PT 11.3 sec (10/27/24 10:30) INR 1.0 INR (10/27/24 10:30) No PTT EO data found SODIUM 129 L mEq/L 11/01/2024 12:05 POTASSIUM 3.6 mEq/L 11/01/2024 12:05 CHLORIDE 98 mEq/L 11/01/2024 12:05 UREA NITROGEN 16.5 mg/dL 11/01/2024 12:05 CREATININE 1.03 mg/dL 11/01/2024 12:05 CALCIUM 8.7 mg/dL 11/01/2024 12:05 CARBON DIOXIDE 23 mEq/L 11/01/2024 12:05 GLUCOSE 93 mg/dL 11/01/2024 12:05 EGFR (CKD-EPI 2020) 74.4 11/01/2024 12:05 PROTEIN 6.7 g/dL 10/27/2024 10:30 ALBUMIN 4.0 g/dL 10/27/2024 10:30 ALKALINE PHOSPHATASE 82 U/L 10/27/2024 10:30 SGPT/ALT 30 U/L (10/27/24 10:30) SGOT/AST 30 U/L (10/27/24 10:30) TOTAL BILIRUBIN 0.6 mg/dL 10/27/2024 10:30 HGA1C 5.9 % 10/27/2024 10:30 AMPHET/METHAMPHETAMINE Negative ng/mL 11/01/2024 12:05 BENZODIAZEPINES (STL) Negative ng/mL 11/01/2024 12:05 CANNABINOIDS Negative ng/mL 11/01/2024 12:05 COCAINE METABOLITES Negative ng/mL 11/01/2024 12:05 OPIATES Negative ng/mL 11/01/2024 12:05 No HIV SCREENING EO data found [facility] Hep C tests in last five years. *No Lab Data Found* DIAGNOSTICS EKG 10/06/24: Normal sinus rhythm Possible Inferior infarct , age undetermined Abnormal ECG No previous ECGs available CXR: Impression for CHEST X-RAY, 2 VIEWS, 10/06/24, case [id number] No acute disease NM STRESS TEST 11/01/24: Impression: 1. Normal SPECT myocardial imaging without evidence of stress-induced ischemia or infarction. 2. Normal left ventricle contractility with LVEF of 72%. PROBLEM LIST 1) HTN - Hypertension ([facility] [id number]) 2) Hyperlipidemia ([facility] [id number]) 3) Sleep apnoea comment: using bipap 4) H/O: Stroke ([facility] [id number]) comment: L footdrop; wears brace; L leg weaker than R comment: using straight or quad cane 5) B-cell lymphoma comment: followed by hematology 6) Anxiety ([facility] [id number]) 7) Depression ([facility] [id number]) 8) Chronic kidney disease 9) Pes planus 10) Chronic post-traumatic stress disorder 11) Exposure to potentially hazardous substance 12) History of malignant neoplasm of skin REVIEW OF SYSTEMS/PAST MEDICAL HISTORY: Functional capacity: >4 METs, able to walk 2 city blocks or climb 1 flight of stairs - limitation is knee pain/giving out, and Leg weakness since CVA RESPIRATORY for: - Recent or current SOB + Sleep apnea, uses BiPAP, most nights, occasionall mask leaks - Asthma - COPD - recent URI symptoms CARDIAC for: - Recent chest pain + Hypertension, controlled + Hyperlipidemia - Myocardial infarction - Coronary artery disease - Heart failure - Valvular disease - Atrial fibrillation/flutter - orthopnea - syncope PSYCH/CENTRAL NERVOUS for: + Depression + Anxiety + Post-traumatic stress disorder + Cerebral vascular accident 2010, hemorrhagic, residual L foot drop/leg nd arm weakness - Seizures ENDOCRINE for: - Diabetes - Hypothyroid + hyponatremia RENAL for: + hx CRI - Nephrolithiasis GI for: - GERD - Liver disease - GI bleed VASCULAR/HEMATOLOGY/ONCOLOGY for: - Anemia - Thrombocytopenia - Bleeding disorders + B-cell lymphoma treated with chemo (BR per Hem/Onc) 2017 Bendamustine/Rituximab + melanoma s/p resection MUSCULOSKELETAL/SKIN/PERIPHER AL NERVOUS for: + Obesity + Arthritis/Degenerative joint disease - Rheumatoid arthritis - Neuropathy /REPRODUCTIVE for: + Prostate hypertrophy HABITS: Alcohol: rare Tobacco: quit 50 yrs ago Other drugs: none SURGICAL HISTORY: lymph node excision, melanoma excision from ear, colonoscopies Previous anesthesia complications: None Family history of anesthesia complications: None PHYSICAL EXAM: Auscultation Finding: Heart Sounds: Regular Rate, Regular Rhythm Breath Sounds: Clear, no wheezes/rales/rhonchi AIRWAY: MP CLASS: 1 SUBMANDIBULAR SPACE: 3 fingerbreadths RANGE OF MOTION: FULL TEETH: Intact BETA BLOCKERS: NONE RECOMMENDATIONS/PLAN: 1. This patient was discussed with Dr. Ashby. 2. Additional labs/imaging/consults needed for anesthesia team: Pt with hyponatremia since 2021 (135-133), now 126 last week, 129 today. Will cc the patient's PCP. Hyponatremia will need to be evaluated prior to surgery. If possible, Na will need to be corrected at least closer to his baseline. 3. NPO after midnight except for small sips of water with meds. 4. Unless directed by procedural team, take morning medications with a sip of water EXCEPT: Hold Lisinopril and HCTZ AM of surgery 5. They should bring his BiPAP machine with them. Time spent reviewing patient's [place] medical records: 45 min Time spent in consultation with the patient: 20 minutes /es/ ANDER LONGO PA-C Physician Sales Consultant, Anesthesiology Signed: 11/01/2024 15:38 Receipt Acknowledged By: 11/01/2024 15:48 /es/ ALONDRA BRYANT Staff Physician 11/01/2024 22:21 /es/ LUKAS ASHBY MD STAFF ANESTHESIOLOGIST 11/02/2024 08:34 /es/ PERFECTO PACK- Advanced Practice Nurse, Orthopedics ALONDRA BRYANT [facility] Nov 01, 2024 11:12 AM ANESTHESIOLOGY CONSULT: LOCAL TITLE: ANESTHESIA PREOPERATIVE EVALUATION CONSULT STL STANDARD TITLE: ANESTHESIOLOGY CONSULT DATE OF NOTE: NOV 01, 2024@11:12 ENTRY DATE: NOV 01, 2024@11:12:26 AUTHOR: ANDER LONGO EXP COSIGNER: URGENCY: STATUS: COMPLETED ANESTHESIA PREOPERATIVE EVALUATION CONSULT STL Has ADDENDA I have reviewed pertinent CPRS documentation in the electronic medical record for this patient. The recommendations/findings offered are the result of information from the requesting provider, a chart review, and IN PERSON CLINIC VISIT. JOYCELYN SEPULVEDA is a 78 year old MALE Pre-Operative Diagnosis: right knee osteoarthritis Surgical Procedure: RTKA 11/18/24 VITALS Age: 78 Weight: 207 lb [93.89 kg] (10/31/2024 11:03) Height: 67 in [170.2 cm] (10/27/2024 09:33) BMI: 32.5 Blood pressure: 143/77 (10/27/2024 09:33) Pulse: 67 (10/27/2024 09:33) Temperature: 97.5 F [36.4 C] (10/27/2024 09:33) Respiration: 18 (10/27/2024 09:33) SpO2: 92% (10/27/2024 09:33) Pain: 0 (08/15/2024 10:13) ALLERGIES Patient has answered NKA MEDICATIONS RXAE - Active/Exp Opt Meds 1) BUPROPION HCL 300MG 24HR SA TAB ACTIVE TAKE ONE TABLET BY MOUTH ONCE A DAY FOR DEPRESSION SWALLOW WHOLE - DO NOT CRUSH OR CHEW. 2) CALCIUM 500MG (CA CARB-1.25GM) TAB ACTIVE TAKE TWO TABLETS BY MOUTH TWICE A DAY FOR CALCIUM SUPPLEMENTATION 3) CETIRIZINE HCL 10MG TAB ACTIVE TAKE ONE TABLET BY MOUTH ONCE A DAY FOR ALLERGY SYMPTOMS 4) CYCLOBENZAPRINE HCL 10MG TAB ACTIVE TAKE ONE TABLET BY MOUTH THREE TIMES A DAY NEEDED FOR MUSCLE SPASM MAY CAUSE DROWSINESS. DO NOT DRINK ALCOHOL WHILE TAKING THIS MEDICATION. 5) DULOXETINE HCL 30MG EC CAP ACTIVE TAKE THREE CAPSULES BY MOUTH ONCE A DAY FOR DEPRESSION DO NOT ABRUPTLY DISCONTINUE MEDICATION. 6) ERGOCALCIF 1,250MCG (D2-50,000UNIT) CAP ACTIVE TAKE ONE CAPSULE BY MOUTH EVERY WEEK FOR VITAMIN D DEFICIENCY 7) FINASTERIDE 5MG TAB ACTIVE TAKE ONE TABLET BY MOUTH ONCE A DAY SWALLOW WHOLE, DO NOT CRUSH, SPLIT, OR CHEW. 8) FLUTICASONE PROP 50MCG 120D NASAL INHL ACTIVE INSTILL 2 SPRAYS IN NOSTRIL(S) ONCE A DAY FOR RHINITIS (MUST BE USED DIRECTED FOR MINIMUM OF 21 DAYS TO PROVIDE ADEQUATE BENEFITS) 9) HYDROCHLOROTHIAZIDE 25MG TAB ACTIVE TAKE ONE TABLET BY MOUTH ONCE A DAY FOR HIGH BLOOD PRESSURE 10) LISINOPRIL 20MG TAB ACTIVE TAKE ONE-HALF TABLET BY MOUTH ONCE A DAY FOR HIGH BLOOD PRESSURE 11) SODIUM FLUORIDE 1.1% TOOTHPASTE ACTIVE USE DIRECTED BY MOUTH TWICE A DAY FOR DENTAL CARIES TOOTHPASTE (DO NOT SWALLOW) APPLY A PEA-SIZED AMOUNT OF THE PASTE TO A TOOTHBRUSH AND BRUSH THOROUGHLY FOR TWO MINUTES, AT MORNING AND AT NIGHT; SPIT, DO NOT RINSE. DO NOT EAT, DRINK, OR RINSE FOR 30 MINUTES AFTER USE. 12) SUNSCREEN 30-50/PHY BLOCK/PABA-F LOTION ACTIVE APPLY LIBERALLY TO AFFECTED AREA(S) DIRECTED FOR SKIN PROTECTION (EXTERNAL USE ONLY) 13) TAMSULOSIN HCL 0.4MG CAP ACTIVE TAKE ONE CAPSULE BY MOUTH EVERY EVENING FOR BENIGN PROSTATIC HYPERPLASIA APPROXIMATELY 30 MINUTES AFTER THE SAME MEAL EACH DAY 14) TRAZODONE HCL 50MG TAB ACTIVE TAKE ONE-HALF TABLET BY MOUTH AT BEDTIME FOR SLEEP 15) ATORVASTATIN CALCIUM 80MG TAB ACTIVE/S TAKE ONE-HALF TABLET BY MOUTH EVERY EVENING FOR HIGH CHOLESTEROL Legend: ACTIVE/S means that the RX is 'active' and suspended for mailout. LABS WBC 4.8 10*3/uL (10/27/24 10:29) HGB 13.1 g/dL 10/27/2024 10:29 HCT 38.8 % (10/27/24 10:29) PLT 240 10*3/uL 10/27/2024 10:29 PT 11.3 sec (10/27/24 10:30) INR 1.0 INR (10/27/24 10:30) No PTT EO data found SODIUM 129 L mEq/L 11/01/2024 12:05 POTASSIUM 3.6 mEq/L 11/01/2024 12:05 CHLORIDE 98 mEq/L 11/01/2024 12:05 UREA NITROGEN 16.5 mg/dL 11/01/2024 12:05 CREATININE 1.03 mg/dL 11/01/2024 12:05 CALCIUM 8.7 mg/dL 11/01/2024 12:05 CARBON DIOXIDE 23 mEq/L 11/01/2024 12:05 GLUCOSE 93 mg/dL 11/01/2024 12:05 EGFR (CKD-EPI 2020) 74.4 11/01/2024 12:05 PROTEIN 6.7 g/dL 10/27/2024 10:30 ALBUMIN 4.0 g/dL 10/27/2024 10:30 ALKALINE PHOSPHATASE 82 U/L 10/27/2024 10:30 SGPT/ALT 30 U/L (10/27/24 10:30) SGOT/AST 30 U/L (10/27/24 10:30) TOTAL BILIRUBIN 0.6 mg/dL 10/27/2024 10:30 HGA1C 5.9 % 10/27/2024 10:30 AMPHET/METHAMPHETAMINE Negative ng/mL 11/01/2024 12:05 BENZODIAZEPINES (STL) Negative ng/mL 11/01/2024 12:05 CANNABINOIDS Negative ng/mL 11/01/2024 12:05 COCAINE METABOLITES Negative ng/mL 11/01/2024 12:05 OPIATES Negative ng/mL 11/01/2024 12:05 No HIV SCREENING EO data found [facility] C tests in last five years. *No Lab Data Found* DIAGNOSTICS EKG 10/06/24: Normal sinus rhythm Possible Inferior infarct , age undetermined Abnormal ECG No previous ECGs available CXR: Impression for CHEST X-RAY, 2 VIEWS, 10/06/24, case [id number] No acute disease NM STRESS TEST 11/01/24: Impression: 1. Normal SPECT myocardial imaging without evidence of stress-induced ischemia or infarction. 2. Normal left ventricle contractility with LVEF of 72%. PROBLEM LIST 1) HTN - Hypertension ([facility] [id number]) 2) Hyperlipidemia ([facility] [id number]) 3) Sleep apnoea comment: using bipap 4) H/O: Stroke ([facility] [id number]) comment: L footdrop; wears brace; L leg weaker than R comment: using straight or quad cane 5) B-cell lymphoma comment: followed by hematology 6) Anxiety ([facility] [id number]) 7) Depression ([facility] [id number]) 8) Chronic kidney disease 9) Pes planus 10) Chronic post-traumatic stress disorder 11) Exposure to potentially hazardous substance 12) History of malignant neoplasm of skin REVIEW OF SYSTEMS/PAST MEDICAL HISTORY: Functional capacity: >4 METs, able to walk 2 city blocks or climb 1 flight of stairs - limitation is knee pain/giving out, and Leg weakness since CVA RESPIRATORY for: - Recent or current SOB + Sleep apnea, uses BiPAP, most nights, occasionall mask leaks - Asthma - COPD - recent URI symptoms CARDIAC for: - Recent chest pain + Hypertension, controlled + Hyperlipidemia - Myocardial infarction - Coronary artery disease - Heart failure - Valvular disease - Atrial fibrillation/flutter - orthopnea - syncope PSYCH/CENTRAL NERVOUS for: + Depression + Anxiety + Post-traumatic stress disorder + Cerebral vascular accident 2010, hemorrhagic, residual L foot drop/leg nd arm weakness - Seizures ENDOCRINE for: - Diabetes - Hypothyroid + hyponatremia RENAL for: + hx CRI - Nephrolithiasis GI for: - GERD - Liver disease - GI bleed VASCULAR/HEMATOLOGY/ONCOLOGY for: - Anemia - Thrombocytopenia - Bleeding disorders + B-cell lymphoma treated with chemo (BR per Hem/Onc) 2017 Bendamustine/Rituximab + melanoma s/p resection MUSCULOSKELETAL/SKIN/PERIPHER AL NERVOUS for: + Obesity + Arthritis/Degenerative joint disease - Rheumatoid arthritis - Neuropathy /REPRODUCTIVE for: + Prostate hypertrophy HABITS: Alcohol: rare Tobacco: quit 50 yrs ago Other drugs: none SURGICAL HISTORY: lymph node excision, melanoma excision from ear, colonoscopies Previous anesthesia complications: None Family history of anesthesia complications: None PHYSICAL EXAM: Auscultation Finding: Heart Sounds: Regular Rate, Regular Rhythm Breath Sounds: Clear, no wheezes/rales/rhonchi AIRWAY: MP CLASS: 1 SUBMANDIBULAR SPACE: 3 fingerbreadths RANGE OF MOTION: FULL TEETH: Intact BETA BLOCKERS: NONE RECOMMENDATIONS/PLAN: 1. This patient was discussed with Dr. Ashby. 2. Additional labs/imaging/consults needed for anesthesia team: Pt with hyponatremia since 2021 (135-133), now 126 last week, 129 today. Will cc the patient's PCP. Hyponatremia will need to be evaluated prior to surgery. If possible, Na will need to be corrected at least closer to his baseline. 3. NPO after midnight except for small sips of water with meds. 4. Unless directed by procedural team, take morning medications with a sip of water EXCEPT: Hold Lisinopril and HCTZ AM of surgery 5. They should bring his BiPAP machine with them. Time spent [facility]: 45 min Time spent in consultation with the patient: 20 minutes /es/ ANDER LONGO PA-C Physician Sales Consultant, Anesthesiology Signed: 11/01/2024 15:38 Receipt Acknowledged By: 11/01/2024 15:48 /es/ ALONDRA BRYANT Staff Physician 11/01/2024 22:21 /es/ LUKAS ASHBY MD STAFF ANESTHESIOLOGIST 11/02/2024 08:34 /es/ PERFECTO BOLES [facility]- Advanced Practice Nurse, Orthopedics 11/01/2024 ADDENDUM STATUS: COMPLETED Reviewed JLV, has had intermittent low sodium going back several years, has never been as low as recently. Has also been on HCTZ for several years--this can be a cause of low sodium. I recommend he hold hydrochlorothiazide for the next week and then will recheck his BMP again next week. Lab can be done at the [facility]. /brianda/ ALONDRA BRYANT Staff Physician Signed: 11/01/2024 16:02 Receipt Acknowledged By: 11/03/2024 10:35 /es/ Contreras Barrett Rn, BSN REGISTERED NURSE 11/14/2024 ADDENDUM STATUS: COMPLETED sent secure message stating he is having surgery this week and is wondering when he is going to receive soap to use. States he was told to use it for 5 days before procedure. Appears procedure is scheduled for 11/18/24. [place] most likely is referring to CHLORHEXIDINE GLUCONATE 4% TOP LIQUID. Rx for this was never entered. Not sure if procedure needs to be postponed, but even if sent overnight would only have three days to use before procedure. Gurvinder Reeves, PharmD. /es/ GURVINDER REEVES Signed: 11/14/2024 09:51 Receipt Acknowledged By: 11/14/2024 11:32 /es/ PERFECTO BOLES [facility] Advanced Practice Nurse, Orthopedics 11/14/2024 ADDENDUM STATUS: COMPLETED please overngight CHLORHEXIDINE GLUCONATE 4% TOP LIQUID and Mupirocin ointment.No need to cancel procedure. cc GURVINDER REEVES /brianda/ [facility] Advanced Practice Nurse, Orthopedics Signed: 11/14/2024 11:34 Receipt Acknowledged By: 11/14/2024 13:08 /brianda/ GURVINDER REEVES 11/15/2024 ADDENDUM STATUS: COMPLETED Repeat labs have not been completed. Can they still be done prior to surgery on 11/18/24? /brianda/ ANDER LONGO PA-C Physician Sales Consultant, Anesthesiology Signed: 11/15/2024 16:10 Receipt Acknowledged By: 11/16/2024 09:26 /brianda/ ALONDRA BRYANT Staff Physician 11/16/2024 06:05 /brianda/ PERFECTO BOLES [facility] Advanced Practice Nurse, Orthopedics 11/16/2024 ADDENDUM STATUS: COMPLETED Patient plans to come get labs today hopefully. /brianad/ ALONDRA BRYANT Staff Physician Signed: 11/16/2024 09:27 11/17/2024 ADDENDUM STATUS: COMPLETED Per PCP 11/17/24: Reviewed labs from patient, his NA is now at 134. I recommend he continue to refrain from using hydrochlorothiazide for HTN given that is the likely cause of his low sodium. To help keep blood pressure under control, I recommend to increase lisinopril to 20mg daily and I have changed the dose of his medication. He can start using a whole 20mg tab daily. --recommend he monitor his BP at home and follow up if his home blood pressures are >140/90. He may proceed with surgery as planned. /brianda/ ANDER LONGO PA-C Physician Sales Consultant, Anesthesiology Signed: 11/17/2024 11:19 Receipt Acknowledged By: * AWAITING SIGNATURE * [facility]ECT[facility]
--- OUTSIDE RECORDS SUMMARY | 2024-11-01 06:00 | XMS_ITS | Encounter Summary ---
Author Name [facility] [place] Address [address] [place] [address] Care Team Providers Care Receptionist Airline Lounge Name Role Phone KOLE GARY Primary Care [...] Patient's Relationship to Policy Wiseman AUNG ZENA [facility] (WNR) MEDICARE ADVANTAGE [facility] (WNR) Aug 03, 2017 [facility] (WN) [id number] [phone] FR RAE SEPULVEDA PATIENT [employer] [facility] (WNR) MEDICARE ADVANTAGE [facility] (WNR) December 01, 2022 [id number] [phone] [id number] FR RAE SEPULVEDA PATIENT [employer] [facility] (WNR) MEDICARE ADVANTAGE [facility] (WNR) December 01, 2022 [id number] [phone] [id number] FR RAE SEPULVEDA PATIENT [employer] [facility] (WNR) MEDICARE ADVANTAGE [facility] ( WNR) December 01, 2022 [id number] [phone] [id number] FR RAE SEPULVEDA PATIENT [employer] [facility] (WNR) MEDICARE ADVANTAGE [facility] (WNR) Aug 03, 2021 [id number] [phone] FR COCO ANK PATIENT [employer] [facility] (WNR) MEDICARE ADVANTAGE [facility] (WNR) Aug 03, 2017 [id number] [phone] FR RAE SEPULVEDA PATIENT [employer] [facility] (WNR) MEDICARE ADVANTAGE [facility] (WNR) Aug 03, 2017 [id number] [phone] FR RAE SEPULEVDA PATIENT Selected Encounter This section includes the information on record at [place] for the Encounter. Date/Time Encounter Type Encounter Description Reason Provider Source Nov 01, 2024 11:00 AM OFF/OP EST DECEMBER X REQ PHY/QHP ANESTHESIA PRE/POST-OP CONSULT ICD-10-CM M17.11 Unilateral primary osteoarthritis, right knee BOUGE,SILVINA L IHE Encounter Template Text not used by [place] Assessments - Encounter Diagnoses This section includes the primary and secondary diagnoses documented for the Encounter. Date/Time Primary/Secondary Diagnosis Diagnosis Name Provider Source Nov 01, 2024 12:20 PM PRIMARY Unilateral primary osteoarthritis, right knee [facility] Nov 01, 2024 12:20 PM SECONDARY Pain in left knee [facility]GE,[facility] Nov 01, 2024 12:20 PM SECONDARY Unilateral primary osteoarthritis, left knee [facility]GE,[facility] Plan of Treatment: Future Appointments (+ 6 months) and Future Tests (+/- 45 days) The Plan of Treatment section includes future care activities for the patient from all [place] [facility]. This section includes future appointments and future orders which are active, pending or scheduled. Future Appointments This section includes appointments that were scheduled to occur 6 months from the date of the Encounter, up to a maximum of 20 appointments. The data comes from all [place] treatment facilities. Appointment Date/Time Appointment Type Appointme nt Facility Name Nov 07, 2024 09:30 AM AMBULATORY - MEDICINE [facility] Nov 08, 2024 10:00 AM AMBULATORY - REHAB MEDICIN E [facility] Nov 14, 2024 09:30 AM AMBULATORY - MEDICINE [facility] Nov 18, 2024 08:30 AM AMBULATORY - NONE [facility] Nov 20, 2024 08:00 AM AMBULATORY - NONE [facility] Nov 21, 2024 09:30 AM AMBULATORY - MEDICINE [facility] Nov 28, 2024 09:30 AM AMBULATORY - MEDICINE [facility] Nov 30, 2024 10:00 AM AMBULATORY - MEDICINE [facility] December 05, 2024 09:30 AM AMBULATORY - MEDICINE [facility] December 12, 2024 09:30 AM AMBULATORY - MEDICINE [facility] December 12, 2024 02:00 PM AMBULATORY - REHAB MEDICIN E [facility] December 13, 2024 11:00 AM AMBULATORY - SURGERY [facility] December 14, 2024 10:00 AM AMBULATORY - SURGERY [facility] December 19, 2024 09:30 AM AMBULATORY - MEDICINE [facility] December 19, 2024 11:00 AM AMBULATORY - REHAB MEDICIN E [facility] December 28, 2024 02:45 PM AMBULATORY - MEDICINE [facility] Jan 02, 2025 10:30 AM AMBULATORY - REHAB MEDICIN E [facility] Jan 09, 2025 09:30 AM AMBULATORY - MEDICINE [facility] Jan 09, 2025 10:30 AM [facility] Jan 10, 2025 09:00 AM AMBULATORY - MEDICINE [facility] Active, Pending, and Scheduled Orders This section includes a listing of several types of active, pending, and scheduled orders, including clinic medications orders, diagnostic test orders, procedure orders and consult orders; where thestart date of the order is 45 days before the date of the Encounter or 45 days after the date of the Encounter. The data comes from all [facility] facilities. Test Date/Time Test Type Test Details Facility Name Oct 27, 2024 12:00 AM Laboratory - Blood Bank Order TYPE & SCREEN - LAB BLOOD SP [facility] Nov 18, 2024 06:00 AM Laboratory - Blood Bank Order TYPE & SCREEN - LAB BLOOD STAT WC [facility] Lab Results: +/- 30 days of the encounter This section includes the Chemistry and Hematology Lab Results on record with [place] for the patient. Radiology Reports and Pathology Reports are provided separately, in subsequent sections. Lab Results This section contains the Chemistry/Hematology Results that were resulted 30 days before or 30 daysafter the date of the Encounter. Date/Time Source Result Type Result - Unit Interpretation Reference Range Specimen Type Comment Nov 19, 2024 02:24 PM [facility] BASIC METABOLIC PANEL PLASMA Specimen Type: PLASMA Comment: No hemolysis noted. Ordering Provider: BESSY HOYT Report Released Date/Time: Nov 19, 2024 06:00 AM Reporting Lab: [facility] [address] [facility] [address] Performing Lab: [address] [address] CREATININE 1.16 mg/dL 0.7-1.3 UREA NITROGEN 21.3 mg/dL 9.0-25.0 GLUCOSE 101 mg/dL H 72-99 SODIUM 133 meq/L L 136-145 POTASSIUM 4.4 meq/L 3.5-5 CHLORIDE 100 meq/L 98-107 CARBON DIOXIDE 21 meq/L L 22-31 CALCIUM 9.4 mg/dL 8.4-10.4 EGFR (CKD-EPI 2020) 64.5 >60 Nov 19, 2024 11:54 AM [facility] BASIC METABOLIC PANEL PLASMA Specimen Type: PL ASMA Comment: No hemolysis noted. Ordering Provider: JEFFERSON VITAL Report Released Date/Time: Nov 19, 2024 11:44 AM Reporting Lab: [facility] [address] [address] Performing Lab: [address] [address] CREATININE 1.15 mg/dL 0.7-1.3 UREA NITROGEN 23.4 mg/dL 9.0-25.0 GLUCOSE 107 mg/dL H 72-99 SODIUM 132 meq/L L 136-145 POTASSIUM 4.1 meq/L 3.5-5 CHLORIDE 101 meq/L 98-107 CARBON DIOXIDE 23 meq/L 22-31 CALCIUM 9.2 mg/dL 8.4-10.4 EGFR (CKD-EPI 2020) 65.1 >60 Nov 19, 2024 11:54 AM [facility] CBC BLOOD Specimen Type: BLOOD Comment: SCAN OF SLIDE AGREES WITH AUTOMATED DIFF Ordering Provider: JEFFERSON VITAL Report Released Date/Time: Nov 19, 2024 11:44 AM Reporting Lab: [facility] [address] [facility] [address] Performing Lab: [place] [id number] [address] WBC 11.2 10*3/uL 3.6-11.2 RBC 3.49 10*6/uL [...] 0.00-0. 20 Nov 18, 2024 06:00 PM [facility] MRSA SURVL NARES DNA NARES Specimen Type: [...] Nov 18, 2024 03:43 PM Reporting Lab: [address] [address] Performing Lab: [address] [address] MRSA SURVL NARES DNA Negative Negative Nov 16, 2024 08:28 AM [facility] TSH W/ REFLEX FT4 (STL) PLASMA Specimen Type: PLASMA No comment entered. Ordering Provider: ALONDRA BRYANT Report Released Date/Time: Nov 01, 2024 04:02 PM Reporting Lab: [address] [address] Performing Lab: [address] [address] TSH 1.991 u[IU]/mL 0.47-5 Nov 16, 2024 08:28 AM [facility] BASIC METABOLIC PANEL PLASMA Specimen Type: PL ASMA Comment: No hemolysis noted. Ordering Provider: ALONDRA BRYANT Report Released Date/Time: Nov 01, 2024 04:02 PM Reporting Lab: [address] [address] Performing Lab: [address] [address] CREATININE 1.02 mg/dL 0.7-1.3 UREA NITROGEN 14.7 mg/dL 9.0-25.0 GLUCOSE 98 mg/dL 72-99 SODIUM 134 meq/L L 136-145 POTASSIUM 4.2 meq/L 3.5-5 CHLORIDE 100 meq/L 98-107 CARBON DIOXIDE 24 meq/L 22-31 CALCIUM 9.5 mg/dL 8.4-10.4 EGFR (CKD-EPI 2020) 75.2 >60 Nov 01, 2024 12:05 PM [facility] URINALYSIS (STL-PB) URINE Specimen Type: URIN E No comment entered. Ordering Provider: PERFECTO BOLES Report Released Date/Time: Oct 27, 2024 10:25 AM Reporting Lab: [address] [address] Performing Lab: [address] [address] URINE COLOR Light-Yellow Yellow U.BILIRUBIN Negative mg/dL Negative U.PH 6.5 5.0-8.0 APPEARANCE Clear Clear U.NITRITE Negative mg/dL Negative URN.GLUCOSE Normal mg/dL Negative URN.PROTEIN Negative mg/dL URN.UROBILINOGEN Normal mg/dL Normal URN.BLOOD Negative mg/dL Negative-Trace URN.KETONES Negative mg/dL Negative-Trac e URN.LEUK.EST. Negative mg/dL Negative-Tr sweta URN.SPECIFIC GRAVITY 1.012 Nov 01, 2024 12:05 PM [facility] URINE DRUG SCREEN (STL) URINE Specimen Type: URINE Comment: The cut-off value for Fentanyl was laboratory developed and its performance characteristics confirmed by the [facility] laboratory thru method comparison with reference laboratory and medication chart review. The laboratory is regulated under CLIA as qualified to perform high-complexity testing. Fentanyl is used for clinical purposes in conjunction with other laboratory tests. Ordering Provider: PERFECTO BOLES Report Released Date/Time: Oct 27, 2024 10:25 AM Reporting Lab: [address] [address] Performing Lab: [address] [address] ETHANOL <10 mg/dL 0-9 AMPHET/METHAMPHETAMINE Negative ng/mL COCAINE METABOLITES Negative ng/mL BENZODIAZEPINES (STL) Negative ng/mL CANNABINOIDS Negative ng/mL METHADONE Negative ng/mL OPIATES Negative ng/mL CREATININE URINE/OTHERS 68.8 mg/dL 63-16 6 OXYCODONE (NJBPV-FJE-KJ) Negative ng/mL BUPRENORPHINE (STL-PB-MA) Negative ng/mL FENTANYL (STL) Negative ng/mL Nov 01, 2024 12:05 PM [facility] BASIC METABOLIC PANEL PLASMA Specimen Type: PL ASMA Comment: No hemolysis noted. Ordering Provider: ANDER LONGO Report Released Date/Time: Nov 01, 2024 11:45 AM Reporting Lab: [address] [address] Performing Lab: [address] [address] CREATININE 1.03 mg/dL 0.7-1.3 UREA NITROGEN 16.5 mg/dL 9.0-25.0 GLUCOSE 93 mg/dL 72-99 SODIUM 129 meq/L L 136-145 POTASSIUM 3.6 meq/L 3.5-5 CHLORIDE 98 meq/L 98-107 CARBON DIOXIDE 23 meq/L 22-31 CALCIUM 8.7 mg/dL 8.4-10.4 EGFR (CKD-EPI 2020) 74.4 >60 Oct 27, 2024 10:29 AM [facility]OD Specimen Type: BLOOD No comment entered. Ordering Provider: PERFECTO BOLES Report Released Date/Time: Oct 27, 2024 10:25 AM Reporting Lab: [address] [address] Performing Lab: [address] [address] HGA1C 5.9 4.0-6.0 Oct 27, 2024 10:29 AM [facility] VITAMIN D, 25-HYDROXY SERUM Specimen Type: SE RUM No comment entered. Ordering Provider: PERFECTO BOLES Report Released Date/Time: Oct 27, 2024 10:25 AM Reporting Lab: [address] [address] Performing Lab: [address] [address] VITAMIN D, 25-HYDROXY 24.1 ng/mL L 30-96 Oct 27, 2024 10:29 AM [facility] PT/INR NEW (STL-MA) PLASMA Specimen Type: PLAS MA No comment entered. Ordering Provider: PERFECTO BOLES Report Released Date/Time: Oct 27, 2024 10:25 AM Reporting Lab: [address] [address] Performing Lab: [address] [address] PROTIME 11.3 s 9.4-12.5 INR VALUE 1.0 {INR} Oct 27, 2024 10:29 AM [facility] COMPREHENSIVE METABOLIC PANEL PLASMA Specimen Type: PLASMA Comment: No hemolysis noted. Ordering Provider: PERFECTO BOLES Report Released Date/Time: Oct 27, 2024 10:25 AM Reporting Lab: [address] [address] Performing Lab: [address] [address] CREATININE 0.99 mg/dL 0.7-1.3 UREA NITROGEN 17.9 [...] 78.0 >60 Oct 27, 2024 10:29 AM [facility] CBC BLOOD Specimen Type: BLOOD No comment entered. Ordering Provider: PERFECTO BOLES Report Released Date/Time: Oct 27, 2024 10:25 AM Reporting Lab: [facility] [address] [address] Performing Lab: [address] [address] WBC 4.8 10*3/uL 3.6-11.2 RBC 4.34 10*6/uL [...] 62 147/68 16 98 65 205 34 [facility] Advance Directives: All historical and current Section Date Range: From patient's date of to the date document was created. This section includes ALL of a patient's completed or amended [place] Advance and Rescinded Directives. The entries below indicate that a directive exists for the patient, but an actual copy is not included with this document. The data comes from all [place] facilities. Date Advance Directives Provider Source Jun 12, [address] [facility] December 24, 2011 ADVANCE DIRECTIVE DISCUSSION TOMMY VAZQUEZ [facility] Radiology Reports: +/- 30 days [...] the Encounter. The data comes from all [place] treatment facilities. Date/Time Radiology Report Provider Source Nov 18, 2024 02:12 PM KNEE,RIGHT,1 OR 2 VIEWS: JOYCELYN SEPULVEDA [id number] -1945 M Exm Date: NOV 18, 2024@14:12 Req Phys: YOVANI DUNN Loc: 5C PCU -/11-19-2024@07:05 Im Loc: -MAIN RADIOLOGY SUITE Service: Unknown [address] [address] (Case [id number] COMPLETE) KNEE,RIGHT,1 OR 2 VIEWS (RAD Detailed) CPT:75711 Proc Modifiers : OR, RIGHT, AP & LAT Reason for Study: postop in OR R TKA Clinical History: Do films need to be ortho templated printed? No Report Status: Verified Date Reported: NOV 19, 2024 Date Verified: NOV 19, 2024 Portrait Artist E-Sig:/ES/Kuldip Decker MD Report: FINDINGS: Right knee replacement is noted and position appears satisfactory. Impression: Right knee replacement shows satisfactory position. Primary Interpreting Staff: Kuldip Decker MD, Radiologist (Portrait Artist) /QMB KULDIP DECKER [facility] Nov 01, 2024 09:58 AM NM MYOCARDIAL P SP ECT STRESS/REST-P: JOYCELYN SEPULVEDA [id number] -1945 M Exm Date: NOV 01, 2024@09:58 Req Phys: SUSANNA HILLS Loc: -CARDIO E-CONSULT (Req'g Loc Img Loc: -NUCLEAR MEDICINE Service: Unknown [address] [address] (Case [id number] COMPLETE) NM MYOCARDIAL PERF SPECT STRESS/R(NM Detailed) CPT:47553 Reason for Study: Pre-op Assessment' (Case 1429 COMPLETE) TC-99M TETROFOSMIN (MYOVIEW) (NM Detailed) CPT:A9502 (Case 1430 COMPLETE) TC-99M TETROFOSMIN (MYOVIEW), PE(NM Detailed) CPT:A9502 (Case 1431 COMPLETE) NON-HEU TC-99M ADD-ON PER STUDY D(NM Detailed) CPT:Q9969 (Case [id number] COMPLETE) REGADENOSON INJECTION (NM Detailed) CPT:J2785 Clinical History: Pre-op Assessment Report Status: Verified Date Reported: NOV 01, 2024 Date Verified: NOV 01, 2024 Portrait Artist E-Sig:/ES/Bon Castro MD,PhD Report: PATIENT NAME: JOYCELYN SEPULVEDA CASE #: [id number], [id number], [id number], [id number], [id number] EXAMINATION: Rest/Lexiscan Stress Gated SPECT Myocardial Imaging [...] Staff: Bon Castro MD,PhD, Nuclear Medicine Physician (Vinny) Primary Interpreting Resident: RADHA PROCTOR MD /BON Ruelas [facility] Oct 06, 2024 09:49 AM BONE LENGTH STUDY (SCANOGRAM): JOYCELYN SEPULVEDA [id number] -1945 M Exm Date: OCT 06, 2024@09:49 Req Phys: JEANA,KEIRSTIN A Pat Loc: [facility] PA JEANA (Req'g Loc) Img Loc: [facility] RADIOLOGY Service: Unknown [facility] [address] [place] [address] (Case [id number] COMPLETE) BONE LENGTH STUDY (SCANOGRAM) (RAD Detailed) CPT:77019 Reason for Study: Pre op eval for TKA Clinical History: Report Status: Verified Date Reported: OCT 07, 2024 Date Verified: OCT 07, 2024 Portrait Artist E-Sig:/ES/PUNEET CARDOSO MD Report: Nonstandard examination as requested for nonradiological measurement or guidance. Impression: Nonstandard imaging Primary Interpreting Staff: PUNEET CARDOSO MD, Radiologist (Portrait Artist) /PUNEET DE PAZ [facility] Oct 06, 2024 09:49 AM CHEST X-RAY, 2 VIE WS: JOYCELYN SEPULVEDA [id number] -1945 M Exm Date: OCT 06, 2024@09:49 Req Phys: JEANA,KEIRSTIN A Pat Loc: [facility] PA JEANA (Req'g Loc) Img Loc: [facility] RAD[facility]OLOGY Service: Unknown [facility] [address] [place] [address] (Case [id number] COMPLETE) CHEST X-RAY, 2 VIEWS (RAD Detailed) CPT:63239 Reason for Study: Pre op eval for TKA Clinical History: Report Status: Verified Date Reported: OCT 07, 2024 Date Verified: OCT 07, 2024 Portrait Artist E-Sig:/ES/PUNEET CARDOSO MD Report: PA and lateral [...] Primary Interpreting Staff: PUNEET CARDOSO MD, Radiologist (Portrait Artist) Primary Interpreting Resident: Janny El, Resident /PUNEET CHEN [facility] Pathology Reports: +/- 30 days [...] the Encounter. The data comes from all [facility] facilities. Date/Time Pathology Report Provider [...] x 3.0 cm for soft tissue fragments. Account Services Analyst sections are submitted, following decalcification in RDO, in two cassettes A1-A2 MICROSCOPIC EXAM: ([place]) Microscopic examination of the sections submitted from right knee bone shows variable loss of articular cartilage with fibrillation and splitting. DIAGNOSIS: RIGHT KNEE BONE, RIGHT TOTAL KNEE ARTHROPLASTY: DEGENERATIVE CHANGES /es/ STUART RIVERS Pathologist Signed Nov 22, 2024@12:56 Performing Laboratory: Surgical Pathology Report Performed By: [facility]# [id number] [address] [place] [address] $FTR - - - - - - - - - - - - - - - - - - - - - - - - - - - - - - - - - - - - - - - - (End of report) STUART RIVERS MD [facility] Date Nov 22, 2024 - - - - - - - - - - - - - - - - - - - - - - - - - - - - - - - - - - - - - - - - JOYCELYN SEPULVEDA A STANDARD FORM 515 ID:[id number] SEX:M :1945 AGE: 78 LOC:APE PCP: Alondra Bryant /brianda/ STUART RIVERS Pathologist Signed: 11/22/2024 12:56 STUART RIVERS [facility] Encounter Notes: All associated encounter notes This section contains the clinical notes associated to the Encounter. Date/Time Encounter Note(s) Provider Source Nov 03, 2024 10:36 AM NURSING NOTE: LOCAL TITLE: CLARISA PROGRESS NOTE STL STANDARD TITLE: NURSING NOTE DATE OF NOTE: NOV 03, 2024@10:36 ENTRY DATE: NOV 03, 2024@10:36:05 AUTHOR: RASHAD BARRETT EXP COSIGNER: URGENCY: STATUS: COMPLETED calleed the number listed n the chart no answer and a secure message was sent /brianda/ Rashad Barrett Rn, BSN REGISTERED NURSE Signed: 11/03/2024 10:36 RASHAD BARRETT [facility] Nov 01, 2024 12:16 PM NURSING NOTE: LOCAL TITLE: DARELLEC NURSE NOTE STL STANDARD TITLE: NURSING NOTE DATE OF NOTE: NOV 01, 2024@12:16 ENTRY DATE: NOV 01, 2024@12:16:36 AUTHOR: SILVINA MONTESINOS EXP COSIGNER: URGENCY: STATUS: COMPLETED Patient sent to clinic by Orthopedics for pre-procedure diagnostic testing. Patient chidi be sheduled for surgery on Nov Urine Specimen Obtained, Lab Draw Completed All diagnostic testing completed today will have the results ent to the ordering provider. Discussed with the patient the contact information for their surgical team in case patient has any further questions or concerns. Pulled labs from IV catheter that is in place from ongoing stress test (Cardiac) from today. Blood flow was excellent through catheter and obtain labs with no issues. /brianda/ SILVINA MONTESINOS RN, [facility] REGISTERED NURSE Signed: 11/01/2024 12:20 SILVINA MONTESINOS [facility]
--- OUTSIDE RECORDS SUMMARY | 2024-11-08 05:15 | XMS_ITS | Encounter Summary ---
Author Name [facility] [facility] [place] [facility] [place] Address [address] [place] [address] Care Team Providers Care Hog Killer Name Role Phone KOLE GARY Primary Care [...] Patient's Relationship to Policy Wiseman AUNG FREITAS [facility] (WNR) MEDICARE ADVANTAGE [facility] (WNR) Aug 03, 2017 [facility] (WN) [id number] [phone] FR RAE SEPULVEDA PATIENT [employer] [facility] (WNR) MEDICARE ADVANTAGE [facility] (WNR) December 01, 2022 [id number] [phone] FR RAE SEPULVEDA PATIENT [employer] [facility] (WNR) MEDICARE ADVANTAGE [facility] (WNR) December 01, 2022 [id number] [phone] FR COCO ANK PATIENT [employer] [facility] (WNR) MEDICARE ADVANTAGE [facility] ( WNR) December 01, 2022 [id number] [phone] FR RAE SEPULVEDA PATIENT [employer] [facility] (WNR) MEDICARE ADVANTAGE [facility] (WNR) Aug 03, 2021 [id number] [phone] FR RAE SEPULVEDA PATIENT [employer] [facility] (WNR) MEDICARE ADVANTAGE MCR (WNR) Aug 03, 2017 [id number] [phone] FR RAE SEPULVEDA PATIENT [employer] [facility] (WNR) MEDICARE ADVANTAGE MCR (WNR) Aug 03, 2017 [id number] [phone] FR RAE SEPULVEDA PATIENT Selected Encounter This section includes the information on record at [place] for the Encounter. Date/Time Encounter Type Encounter Description Reason Provider Source Nov 08, 2024 10:15 AM SELF CARE MNGMENT TRAINING PHYSICAL THERAPY ICD-10-CM M17.11 Unilateral primary osteoarthritis, right knee MERYL HSU [place] Encounter Template Text not used by [place] Assessments - Encounter Diagnoses This section includes the primary and secondary diagnoses documented for the Encounter. Date/Time Primary/Secondary Diagnosis Diagnosis Name Provider Source Nov 08, 2024 03:34 PM PRIMARY Unilateral primary osteoarthritis, right knee MERYL HSU [facility] Plan of Treatment: Future Appointments (+ 6 months) and Future Tests (+/- 45 days) The Plan of Treatment section includes future care activities for the patient from all [place] [facility] This section includes future appointments and future orders which are active, pending or scheduled. Future Appointments This section includes appointments that were scheduled to occur 6 months from the date of the Encounter, up to a maximum of 20 appointments. The data comes from all [place] treatment facilities. Appointment Date/Time Appointment Type Appointme nt Facility Name Nov 14, 2024 09:30 AM AMBULATORY - MEDICINE [facility] Nov 18, 2024 08:30 AM AMBULATORY - NONE [facility] Nov 20, 2024 08:00 AM AMBULATORY - NONE [facility] Nov 21, 2024 09:30 AM AMBULATORY - MEDICINE [facility] Nov 28, 2024 09:30 AM AMBULATORY - MEDICINE [facility] Nov 30, 2024 10:00 AM AMBULATORY - MEDICINE [facility] December 05, 2024 09:30 AM AMBULATORY - MEDICINE [facility] December 12, 2024 09:30 AM AMBULATORY - MEDICINE [facility] December 12, 2024 02:00 PM AMBULATORY - REHAB MEDICIN E [facility] December 13, 2024 11:00 AM AMBULATORY - SURGERY [facility] December 14, 2024 10:00 AM AMBULATORY - SURGERY [facility] December 19, 2024 09:30 AM AMBULATORY - MEDICINE [facility] December 19, 2024 11:00 AM AMBULATORY - REHAB MEDICIN E [facility] December 28, 2024 02:45 PM AMBULATORY - MEDICINE [facility] Jan 02, 2025 10:30 AM AMBULATORY - REHAB MEDICIN E [facility] Jan 09, 2025 09:30 AM AMBULATORY - MEDICINE [facility] Jan 09, 2025 10:30 AM AMBULATORY - NONE [facility] Jan 10, 2025 09:00 AM AMBULATORY - MEDICINE [facility] Jan 11, 2025 02:00 PM AMBULATORY - REHAB MEDICIN E [facility] Jan 16, 2025 09:30 AM AMBULATORY - MEDICINE [facility] Active, Pending, and Scheduled Orders This section includes a listing of several types of active, pending, and scheduled orders, including clinic medications orders, diagnostic test orders, procedure orders and consult orders; where the start date of the order is 45 days before the date of the Encounter or 45 days after the date of theEncounter. The data comes from all [place] treatment facilities. Test Date/Time Test Type Test Details Facility Name Oct 27, 2024 12:00 AM Laboratory - Blood Bank Order TYPE & SCREEN - LAB BLOOD SP [facility] Nov 18, 2024 06:00 AM Laboratory - Blood Bank Order TYPE & SCREEN - LAB BLOOD STAT [facility] Lab Results: +/- 30 days of the encounter This section includes the Chemistry and Hematology Lab Results on record with [place] for the patient. Radiology Reports and Pathology Reports are provided separately, in subsequent sections. Lab Results This section contains the Chemistry/Hematology Results that were resulted 30 days before or 30 daysafter the date of the Encounter. Date/Time Source Result Type Result - Unit Interpretation Reference Range Specimen Type Comment Nov 19, 2024 02:24 PM [facility] BASIC METABOLIC PANEL PLASMA Specimen Type: PLASMA Comment: No hemolysis noted. Ordering Provider: BESSY HOYT Report Released Date/Time: Nov 19, 2024 06:00 AM Reporting Lab: [address] [address] Performing Lab: [address] [address] CREATININE 1.16 mg/dL 0.7-1.3 UREA NITROGEN 21.3 mg/dL 9.0-25.0 GLUCOSE 101 mg/dL H 72-99 SODIUM 133 meq/L L 136-145 POTASSIUM 4.4 meq/L 3.5-5 CHLORIDE 100 meq/L 98-107 CARBON DIOXIDE 21 meq/L L 22-31 CALCIUM 9.4 mg/dL 8.4-10.4 EGFR (CKD-EPI 2020) 64.5 >60 Nov 19, 2024 11:54 AM [facility] BASIC METABOLIC PANEL PLASMA Specimen Type: PL ASMA Comment: No hemolysis noted. Ordering Provider: JEFFERSON VITAL Report Released Date/Time: Nov 19, 2024 11:44 AM Reporting Lab: [address] [address] Performing Lab: [address] [address] CREATININE 1.15 mg/dL 0.7-1.3 UREA NITROGEN 23.4 mg/dL 9.0-25.0 GLUCOSE 107 mg/dL H 72-99 SODIUM 132 meq/L L 136-145 POTASSIUM 4.1 meq/L 3.5-5 CHLORIDE 101 meq/L 98-107 CARBON DIOXIDE 23 meq/L 22-31 CALCIUM 9.2 mg/dL 8.4-10.4 EGFR (CKD-EPI 2020) 65.1 >60 Nov 19, 2024 11:54 AM [facility] CBC BLOOD Specimen Type: BLOOD Comment: SCAN OF SLIDE AGREES WITH AUTOMATED DIFF Ordering Provider: JEFFERSON VITAL Report Released Date/Time: Nov 19, 2024 11:44 AM Reporting Lab: [address] [address] Performing Lab: [address] [address] WBC 11.2 10*3/uL 3.6-11.2 RBC 3.49 10*6/uL [...] 0.00-0. 20 Nov 18, 2024 06:00 PM [facility] MRSA SURVL NARES DNA NARES Specimen Type: [...] Nov 18, 2024 03:43 PM Reporting Lab: [address] [address] Performing Lab: [address] [address] MRSA SURVL NARES DNA Negative Negative Nov 16, 2024 08:28 AM [facility] TSH W/ REFLEX FT4 (STL) PLASMA Specimen Type: PLASMA No comment entered. Ordering Provider: ALONDRA BRYANT Report Released Date/Time: Nov 01, 2024 04:02 PM Reporting Lab: [address] [address] Performing Lab: [address] [address] TSH 1.991 u[IU]/mL 0.47-5 Nov 16, 2024 08:28 AM [facility] BASIC METABOLIC PANEL PLASMA Specimen Type: PL ASMA Comment: No hemolysis noted. Ordering Provider: ALONDRA BRYANT Report Released Date/Time: Nov 01, 2024 04:02 PM Reporting Lab: [address] [address] Performing Lab: [address] [address] CREATININE 1.02 mg/dL 0.7-1.3 UREA NITROGEN 14.7 mg/dL 9.0-25.0 GLUCOSE 98 mg/dL 72-99 SODIUM 134 meq/L L 136-145 POTASSIUM 4.2 meq/L 3.5-5 CHLORIDE 100 meq/L 98-107 CARBON DIOXIDE 24 meq/L 22-31 CALCIUM 9.5 mg/dL 8.4-10.4 EGFR (CKD-EPI 2020) 75.2 >60 Nov 01, 2024 12:05 PM [facility] URINALYSIS (STL-PB) URINE Specimen Type: URIN E No comment entered. Ordering Provider: PERFECTO BOLES Report Released Date/Time: Oct 27, 2024 10:25 AM Reporting Lab: [address] [address] Performing Lab: [address] [address] URINE COLOR Light-Yellow Yellow U.BILIRUBIN Negative mg/dL Negative U.PH 6.5 5.0-8.0 APPEARANCE Clear Clear U.NITRITE Negative mg/dL Negative URN.GLUCOSE Normal mg/dL Negative URN.PROTEIN Negative mg/dL URN.UROBILINOGEN Normal mg/dL Normal URN.BLOOD Negative mg/dL Negative-Trace URN.KETONES Negative mg/dL Negative-Trac e URN.LEUK.EST. Negative mg/dL Negative-Tr sweta URN.SPECIFIC GRAVITY 1.012 Nov 01, 2024 12:05 PM [facility] URINE DRUG SCREEN (STL) URINE Specimen Type: URINE Comment: The cut-off value for Fentanyl was laboratory developed and its performance characteristics confirmed by the [facility] laboratory thru method comparison with reference laboratory and medication chart review. The laboratory is regulated under CLIA as qualified to perform high-complexity testing. Fentanyl is used for clinical purposes in conjunction with other laboratory tests. Ordering Provider: PERFECTO BOLES Report Released Date/Time: Oct 27, 2024 10:25 AM Reporting Lab: [address] [address] Performing Lab: [address] [address] ETHANOL <10 mg/dL 0-9 AMPHET/METHAMPHETAMINE Negative ng/mL COCAINE METABOLITES Negative ng/mL BENZODIAZEPINES (STL) Negative ng/mL CANNABINOIDS Negative ng/mL METHADONE Negative ng/mL OPIATES Negative ng/mL CREATININE URINE/OTHERS 68.8 mg/dL 63-16 6 OXYCODONE (FJOPL-AHJ-PJ) Negative ng/mL BUPRENORPHINE (STL-PB-MA) Negative ng/mL FENTANYL (STL) Negative ng/mL Nov 01, 2024 12:05 PM [facility] BASIC METABOLIC PANEL PLASMA Specimen Type: PL ASMA Comment: No hemolysis noted. Ordering Provider: ANDER LONGO Report Released Date/Time: Nov 01, 2024 11:45 AM Reporting Lab: [address] [address] Performing Lab: [address] [address] CREATININE 1.03 mg/dL 0.7-1.3 UREA NITROGEN 16.5 mg/dL 9.0-25.0 GLUCOSE 93 mg/dL 72-99 SODIUM 129 meq/L L 136-145 POTASSIUM 3.6 meq/L 3.5-5 CHLORIDE 98 meq/L 98-107 CARBON DIOXIDE 23 meq/L 22-31 CALCIUM 8.7 mg/dL 8.4-10.4 EGFR (CKD-EPI 2020) 74.4 >60 Oct 27, 2024 10:29 AM [facility] HGA1C BLOOD Specimen Type: BLOOD No comment entered. Ordering Provider: PERFECTO BOLES Report Released Date/Time: Oct 27, 2024 10:25 AM Reporting Lab: [facility] [address] [facility] [address] Performing Lab: [facility] [address] [place] [address] HGA1C 5.9 4.0-6.0 Oct 27, 2024 10:29 AM [facility] VITAMIN D, 25-HYDROXY SERUM Specimen Type: SE RUM No comment entered. Ordering Provider: PERFECTO BOLES Report Released Date/Time: Oct 27, 2024 10:25 AM Reporting Lab: [facility] [address] [facility] [address] Performing Lab: [facility] [address] [facility] [address] VITAMIN D, 25-HYDROXY 24.1 ng/mL L 30-96 Oct 27, 2024 10:29 AM [facility] PT/INR NEW (STL-MA) PLASMA Specimen Type: PLAS MA No comment entered. Ordering Provider: PERFECTO BOLES Report Released Date/Time: Oct 27, 2024 10:25 AM Reporting Lab: [facility] [address] [facility] [address] Performing Lab: [facility] [address] [facility] [address] PROTIME 11.3 s 9.4-12.5 INR VALUE 1.0 {INR} Oct 27, 2024 10:29 AM [facility] COMPREHENSIVE METABOLIC PANEL PLASMA Specimen Type: PLASMA Comment: No hemolysis noted. Ordering Provider: PERFECTO BOLES Report Released Date/Time: Oct 27, 2024 10:25 AM Reporting Lab: [facility] [address] [facility] [address] Performing Lab: [address] [address] CREATININE 0.99 mg/dL 0.7-1.3 UREA NITROGEN 17.9 [...] 78.0 >60 Oct 27, 2024 10:29 AM [facility] CBC BLOOD Specimen Type: BLOOD No comment entered. Ordering Provider: PERFECTO BOLES Report Released Date/Time: Oct 27, 2024 10:25 AM Reporting Lab: [address] [address] Performing Lab: [address] [address] WBC 4.8 10*3/uL 3.6-11.2 RBC 4.34 10*6/uL [...] ALL of a patient's completed or amended [place] Advance and Rescinded Directives. The entries below indicate that a directive exists for the patient, but an actual copy is not included with this document. The data comes from all [place] facilities. Date Advance Directives Provider Source Jun 12, [address] [facility] December 24, 2011 ADVANCE DIRECTIVE DISCUSSION TOMMY VAZQUEZ [facility] Radiology Reports: +/- 30 days of the [...] the Encounter. The data comes from all [place] treatment facilities. Date/Time Radiology Report Provider Source Nov 18, 2024 02:12 PM KNEE,RIGHT,1 OR 2 VIEWS: JOYCELYN SEPULVEDA [id number] -1945 M Ex Date: NOV 18, 2024@14:12 Req Phys: YOVANI DUNN Pat Loc: 5C PCU [facility]/11-19-2024@07:05 Img Loc: [facility]MAIN RADIOLOGY SUITE Service: [address] [address] (Case [id number] COMPLETE) KNEE,RIGHT,1 OR 2 VIEWS (RAD Detailed) CPT:74086 Proc Modifiers : OR, RIGHT, AP & LAT Reason for Study: postop in OR R TKA Clinical History: Do films need to be ortho templated printed? No Report Status: Verified Date Reported: NOV 19, 2024 Date Verified: NOV 19, 2024 Surg Nurse E-Sig:/ES/Kuldip Decker MD Report: FINDINGS: Right knee replacement is noted and position appears satisfactory. Impression: Right knee replacement shows satisfactory position. Primary Interpreting Staff: Kuldip Decker MD, Radiologist (Surg Nurse) /QMB KULDIP DECKER [facility] Nov 01, 2024 09:58 AM NM MYOCARDIAL P SP ECT STRESS/REST-P: JOYCELYN SEPULVEDA [id number] -1945 M Exm Date: NOV 01, 2024@09:58 Req Phys: SUSANNA HILLS Loc: [facility]CARDIO E-CONSULT (Req'g Loc Img Loc: [facility]NUCLEAR MEDICINE Service: Unknown [address] [address] (Case [id number] COMPLETE) NM MYOCARDIAL PERF SPECT STRESS/R(NM Detailed) CPT:15372 Reason for Study: Pre-op Assessment' (Case 1429 COMPLETE) TC-99M TETROFOSMIN (MYOVIEW) (NM Detailed) CPT:A9502 (Case 1430 COMPLETE) TC-99M TETROFOSMIN (MYOVIEW), PE(NM Detailed) CPT:A9502 (Case 1431 COMPLETE) NON-HEU TC-99M ADD-ON PER STUDY D(NM Detailed) CPT:Q9969 (Case 1737 COMPLETE) REGADENOSON INJECTION (NM Detailed) CPT:J2785 Clinical History: Pre-op Assessment Report Status: Verified Date Reported: NOV 01, 2024 Date Verified: NOV 01, 2024 Surg Nurse E-Sig:/ES/Bon Castro MD,PhD Report: PATIENT NAME: JOYCELYN SEPULVEDA CASE #: [id number], [id number], [id number], [id number], [id number] EXAMINATION: Rest/Lexiscan Stress Gated SPECT Myocardial Imaging [...] Staff: Bon Castro MD,PhD, Nuclear Medicine Physician (Surg Nurse) Primary Interpreting Resident: RADHA PROCTOR MD /BON Ruelas [facility] Pathology Reports: +/- 30 days of [...] the Encounter. The data comes from all [place] treatment facilities. Date/Time Pathology Report Provider Source [...] x 3.0 cm for soft tissue fragments. Gear Cutting Machine Operator sections are submitted, following decalcification in RDO, in two cassettes A1-A2 MICROSCOPIC EXAM: ([place]) Microscopic examination of the sections submitted from right knee bone shows variable loss of articular cartilage with fibrillation and splitting. DIAGNOSIS: RIGHT KNEE BONE, RIGHT TOTAL KNEE ARTHROPLASTY: DEGENERATIVE CHANGES /brianda/ STUART RIVERS Pathologist Signed Nov 22, 2024@12:56 Performing Laboratory: Surgical Pathology Report Performed By: [address] CLIA# [id number] [address] [address] $FTR - - - - - - - - - - - - - - - - - - - - - - - - - - - - - - - - - - - - - - - - (End of report) STUART RIVERS MD [facility] Date Nov 22, 2024 - - - - - - - - - - - - - - - - - - - - - - - - - - - - - - - - - - - - - - - - JOYCELYN SEPULVEDA STANDARD FORM 515 ID:[id number] SEX:M :1945 AGE: 78 LOC:APFEE PCP: Alondra Bryant /brianda/ STUART RIVERS Pathologist Signed: 11/22/2024 12:56 STUART RIVERS [facility] Encounter Notes: All associated encounter notes This section contains the clinical notes associated to the Encounter. Date/Time Encounter Note(s) Provider Source Nov 08, 2024 02:47 PM PHYSICAL THERAPY N OTE: LOCAL TITLE: PT ASSESSMENT STL STANDARD TITLE: PHYSICAL THERAPY NOTE DATE OF NOTE: NOV 08, 2024@14:47 ENTRY DATE: NOV 08, 2024@14:48:03 AUTHOR: MERYL HSU EXP COSIGNER: URGENCY: STATUS: COMPLETED Pre-op visit PRE-OP ORTHOPEDIC CLASS FOR TKA/HAWA ANTICIPATED PROCEDURE: [X] ( R ) TKA [] ( )HAWA on 11/18/24 CHART REVIEW: _X_BRIEF __EXPANDED __EXTENSIVE Treatment time:30 mins. Low complexity PT evaluation: 10 mins. Self care management:15 mins. Gait trainin mins. Visits to date: 1 -Exposure: []Minimal (supervision, able to maintain 6 feet away) [x]Moderate (minimal to moderate patient contact) []Maximal (moderate to maximal patient contact) -Other people involved in treatment [x]None []Included: S: Pt reports baseline level of pain 5/10. VET'S GOAL(S) in having surgery: Walk without pain;better gait [place] lives with his in a 1 story home without [place]LL. He is retired. He drives occasionally. He has a cane and a rollator. Left sided weakness 2/2 stroke. Objective: Observation: []Obese [X] overweight [] proportional height/weight [] underweight adult M in NAD. Cognition: A&O X 4. AROM: Grossly intact in all extremities by observation. Goniometry: AROM knees Rt.=-20 to 107 deg , Lt.=-20 to 97 deg. Strength: Grossly 3/5 throughout extremities or better by observation of functional movements. Gait: [place] ambulates indep w/o device, with [] mildly [X] moderately [] markedly antalgic pattern. Functional Mobility: sit <-> stand: modified indep-uses hands to push himself to standing and assist deceleration in stand to sit. Balance:3 [facility] Balance Scale 0 Patient performs 25% or less of standing activity. (Maximum assist). 1 Patient supports self with upper extremities performing 25-50% of effort. (Moderate assist). 1+ Patient supports self with upper extremities performing >50% of effort. (Minimal effort). 2 supports self independently with both upper extremities. 2+ supports self independently with 1 upper extremity. 3 independent without upper extremity support for up to 30 seconds. 3+ Independent without upper extremity support for up to > 30 seconds 4 Independently moves and returns center of gravity 1-2 inches in one plane. 4+ Independently moves and returns center of gravity 1-2 inches in multiple planes. 5 Independently moves and returns center of gravity in all planes greater than 2 inches. Endurance: _X_Good __Fair __Poor Walking distances is limited by pain. Dyspnea scale:0 during activity 0 none +1 mild, noticeable to patient but not observer +2 mild, some difficulty, noticeable to observer +3 moderate difficulty, but can continue +4 severe difficulty, cannot continue Treatment: Low complexity PT evaluation Self-care management: The following topics were covered with the pt: Importance of taking pain medication for adequate, consistent pain control. Edema management with compression, elevation, and Fannin machine If having TKA: Avoidance of putting the operative knee in a sustained bent position. Post-operative restrictions/precautions Instructed in post-operative precautions. Leave the surgical dressing intact unless removed by medical personnel. Importance of being up and ambulatory q 2 hours, during waking hours. Elements of DVT protection and importance of compliance with prophylaxis. Demonstration and supervised performance of the post-op exercise program.Pt. instructed to begin the exercise now in preparation for surgery. Gait training: instruction in proper sequence on level surfaces, stairs, and curbs. PLan: Discharge from PT until after surgery. THERAPIST PPE: SURGICAL MASK, goggles, gloves PPE: SURGICAL MASK EXPOSURE: []Minimal(supervision, able to maintain 6 feet away) [X]Moderate (minimal to moderate patient contact) []Maximal (moderate to maximal patient contact) CLINIC TABLES, CHAIRS, EQUIPMENT WIPED DOWN WITH [facility]CL[facility] FOLLOWING APPT. The patient presented with the following number of personal factors/comorbidities influencing the PT plan of care: -> home setting/ barriers to mobility -> level of assistance available at home -> chronicity of disease process -> prior level of function -> number and severity of comorbidities -> social barriers to recovery Total number of elements examined: -> cognition -> ROM -> Strength -> functional mobility -> balance The patients CLINICAL PRESENTATION was: [X] Stable and/or Uncomplicated: [] Evolving Clinical Presentation with Changing Clinical Characteristics: [] Unstable and Unpredictable Characteristics: Therefore the level of complexity for this patient was: [X] Low, [] Moderate, [] High Person(s) who received education: Patient Education Topic/Teaching Needs: Treatment/Procedure (Non-Surgical) Purpose and benefits of PT evaluation Equipment Use/Safety -features, benefits, limitations, and safe use of: []cane []seated walker [] crutches [] manual wheelchair [] knee walker Rehabilitation and Habilitation Results of the evaluation and plan of care Methods used included: Oral: Verbal explanation Written: composition roofer's literature Teaching outcomes: Good level of understanding Going to [facility] for outpt rehab. WILL ISSUE WWR AT TIME OF SURGERY. /brianda/ Meryl Hsu MA, PT Physical Therapist Signed: 11/08/2024 15:34 MERYL HSU [facility]
--- OUTSIDE RECORDS SUMMARY | 2024-11-08 08:57 | XMS_ITS | Encounter Summary ---
Author Name [facility] [place] [facility] [place] Address [address] [place] [address] Care Team Providers Care Crane Ladle Person Name Role Phone KOLE GARY Primary Care [...] Patient's Relationship to Policy Wiseman AUNG GOLD [facility] (WNR) MEDICARE ADVANTAGE [facility] (WNR) Aug 03, 2017 [facility] (WN) [id number] [phone] FR RAE SEPULVEDA PATIENT [employer] MCR (WNR) MEDICARE ADVANTAGE MCR (WNR) December 01, 2022 [id number] [phone] FR COCO RAE PATIENT [employer] MCR (WNR) MEDICARE ADVANTAGE MCR (WNR) December 01, 2022 [id number] [phone] FR COCO ANK PATIENT [employer] MCR (WNR) MEDICARE ADVANTAGE MCR ( WNR) December 01, 2022 [id number] [phone] FR RAE SEPULVEDA PATIENT [employer] MCR (WNR) MEDICARE ADVANTAGE [facility] (WNR) Aug 03, 2021 [id number] [phone] FR RAE SEPULVEDA PATIENT [employer] MCR (WNR) MEDICARE ADVANTAGE MCR (WNR) Aug 03, 2017 [id number] [phone] FR RAE SEPULVEDA PATIENT [employer] MCR (WNR) MEDICARE ADVANTAGE MCR (WNR) Aug 03, 2017 [id number] [phone] FR RAE SEPULVEDA PATIENT Selected Encounter This section includes the information on record at [place] for the Encounter. Date/Time Encounter Type Encounter Description Reason Provider Source Nov 08, 2024 01:57 PM Outpatient Encounter COMMUNITY CARE CONSULT GUERA ROSEN Encounter Template Text not used by [place] Plan of Treatment: Future Appointments (+ 6 [...] 14, 2024 09:30 AM AMBULATORY - MEDICINE [facility] Nov 18, 2024 08:30 AM AMBULATORY - NONE [facility] Nov 20, 2024 08:00 AM AMBULATORY - NONE [facility] Nov 21, 2024 09:30 AM AMBULATORY - MEDICINE [facility] Nov 28, 2024 09:30 AM AMBULATORY - MEDICINE [facility] Nov 30, 2024 10:00 AM AMBULATORY - MEDICINE [facility] December 05, 2024 09:30 AM AMBULATORY - MEDICINE [facility] December 12, 2024 09:30 AM AMBULATORY - MEDICINE [facility] December 12, 2024 02:00 PM AMBULATORY - REHAB MEDICIN E [facility] December 13, 2024 11:00 AM AMBULATORY - SURGERY [facility] December 14, 2024 10:00 AM AMBULATORY - SURGERY [facility] December 19, 2024 09:30 AM AMBULATORY - MEDICINE [facility] December 19, 2024 11:00 AM AMBULATORY - REHAB MEDICIN E [facility] December 28, 2024 02:45 PM AMBULATORY - MEDICINE [facility] Jan 02, 2025 10:30 AM AMBULATORY - REHAB MEDICIN E [facility] Jan 09, 2025 09:30 AM AMBULATORY - MEDICINE [facility] Jan 09, 2025 10:30 AM AMBULATORY - NONE [facility] Jan 10, 2025 09:00 AM AMBULATORY - MEDICINE [facility] Jan 11, 2025 02:00 PM AMBULATORY - REHAB MEDICIN E [facility] Jan 16, 2025 09:30 AM AMBULATORY - MEDICINE [facility] Active, Pending, and Scheduled Orders This section includes a listing of several types of active, pending, and scheduled orders, including clinic medications orders, diagnostic test orders, procedure orders and consult orders; where the start date of the order is 45 days before the date of the Encounter or 45 days after the date of theEncounter. The data comes from all [place] treatment facilities. Test Date/Time Test Type Test Details Facility Name Oct 27, 2024 12:00 AM Laboratory - Blood Bank Order TYPE & SCREEN - LAB BLOOD SP [facility] Nov 18, 2024 06:00 AM Laboratory - Blood Bank Order TYPE & SCREEN - LAB BLOOD STAT [facility] Lab Results: +/- 30 days of the encounter This section includes the Chemistry and Hematology Lab Results on record with [place] for the patient. Radiology Reports and Pathology Reports are provided separately, in subsequent sections. Lab Results This section contains the Chemistry/Hematology Results that were resulted 30 days before or 30 daysafter the date of the Encounter. Date/Time Source Result Type Result - Unit Interpretation Reference Range Specimen Type Comment Nov 19, 2024 02:24 PM [facility] BASIC METABOLIC PANEL PLASMA Specimen Type: PLASMA Comment: No hemolysis noted. Ordering Provider: BESSY HOYT Report Released Date/Time: Nov 19, 2024 06:00 AM Reporting Lab: [address] [address] Performing Lab: [address] [address] CREATININE 1.16 mg/dL 0.7-1.3 UREA NITROGEN 21.3 mg/dL 9.0-25.0 GLUCOSE 101 mg/dL H 72-99 SODIUM 133 meq/L L 136-145 POTASSIUM 4.4 meq/L 3.5-5 CHLORIDE 100 meq/L 98-107 CARBON DIOXIDE 21 meq/L L 22-31 CALCIUM 9.4 mg/dL 8.4-10.4 EGFR (CKD-EPI 2020) 64.5 >60 Nov 19, 2024 11:54 AM [facility] BASIC METABOLIC PANEL PLASMA Specimen Type: PL ASMA Comment: No hemolysis noted. Ordering Provider: JEFFERSON VITAL Report Released Date/Time: Nov 19, 2024 11:44 AM Reporting Lab: [address] [address] Performing Lab: [address] [address] CREATININE 1.15 mg/dL 0.7-1.3 UREA NITROGEN 23.4 mg/dL 9.0-25.0 GLUCOSE 107 mg/dL H 72-99 SODIUM 132 meq/L L 136-145 POTASSIUM 4.1 meq/L 3.5-5 CHLORIDE 101 meq/L 98-107 CARBON DIOXIDE 23 meq/L 22-31 CALCIUM 9.2 mg/dL 8.4-10.4 EGFR (CKD-EPI 2020) 65.1 >60 Nov 19, 2024 11:54 AM [facility] CBC BLOOD Specimen Type: BLOOD Comment: SCAN OF SLIDE AGREES WITH AUTOMATED DIFF Ordering Provider: JEFFERSON VITAL Report Released Date/Time: Nov 19, 2024 11:44 AM Reporting Lab: [address] [address] Performing Lab: [address] [address] WBC 11.2 10*3/uL 3.6-11.2 RBC 3.49 10*6/uL [...] 0.00-0. 20 Nov 18, 2024 06:00 PM [facility] MRSA SURVL NARES DNA NARES Specimen Type: [...] Nov 18, 2024 03:43 PM Reporting Lab: [facility] [address] [facility] [address] Performing Lab: [address] [address] MRSA SURVL NARES DNA Negative Negative Nov 16, 2024 08:28 AM [facility] TSH W/ REFLEX FT4 (STL) PLASMA Specimen Type: PLASMA No comment entered. Ordering Provider: ALONDRA BRYANT Report Released Date/Time: Nov 01, 2024 04:02 PM Reporting Lab: [facility] [address] [place] [address] Performing Lab: [address] [address] TSH 1.991 u[IU]/mL 0.47-5 Nov 16, 2024 08:28 AM [facility] BASIC METABOLIC PANEL PLASMA Specimen Type: PL ASMA Comment: No hemolysis noted. Ordering Provider: ALONDRA BRYANT Report Released Date/Time: Nov 01, 2024 04:02 PM Reporting Lab: [address] [address] Performing Lab: [address] [address] CREATININE 1.02 mg/dL 0.7-1.3 UREA NITROGEN 14.7 mg/dL 9.0-25.0 GLUCOSE 98 mg/dL 72-99 SODIUM 134 meq/L L 136-145 POTASSIUM 4.2 meq/L 3.5-5 CHLORIDE 100 meq/L 98-107 CARBON DIOXIDE 24 meq/L 22-31 CALCIUM 9.5 mg/dL 8.4-10.4 EGFR (CKD-EPI 2020) 75.2 >60 Nov 01, 2024 12:05 PM [facility] URINALYSIS (L-PB) URINE Specimen Type: URIN E No comment entered. Ordering Provider: PERFECTO BOLES Report Released Date/Time: Oct 27, 2024 10:25 AM Reporting Lab: [address] [address] Performing Lab: [address] [address] URINE COLOR Light-Yellow Yellow U.BILIRUBIN Negative mg/dL Negative U.PH 6.5 5.0-8.0 APPEARANCE Clear Clear U.NITRITE Negative mg/dL Negative URN.GLUCOSE Normal mg/dL Negative URN.PROTEIN Negative mg/dL URN.UROBILINOGEN Normal mg/dL Normal URN.BLOOD Negative mg/dL Negative-Trace URN.KETONES Negative mg/dL Negative-Trac e URN.LEUK.EST. Negative mg/dL Negative-Tr sweta URN.SPECIFIC GRAVITY 1.012 Nov 01, 2024 12:05 PM [facility] BASIC METABOLIC PANEL PLASMA Specimen Type: PL ASMA Comment: No hemolysis noted. Ordering Provider: ANDER LONGO Report Released Date/Time: Nov 01, 2024 11:45 AM Reporting Lab: [facility] [address] [place] [address] Performing Lab: [address] [address] CREATININE 1.03 mg/dL 0.7-1.3 UREA NITROGEN 16.5 mg/dL 9.0-25.0 GLUCOSE 93 mg/dL 72-99 SODIUM 129 meq/L L 136-145 POTASSIUM 3.6 meq/L 3.5-5 CHLORIDE 98 meq/L 98-107 CARBON DIOXIDE 23 meq/L 22-31 CALCIUM 8.7 mg/dL 8.4-10.4 EGFR (CKD-EPI 2020) 74.4 >60 Nov 01, 2024 12:05 PM [facility] URINE DRUG SCREEN (STL) URINE Specimen Type: URINE Comment: The cut-off value for Fentanyl was laboratory developed and its performance characteristics confirmed by the [facility] laboratory thru method comparison with reference laboratory and medication chart review. The laboratory is regulated under CLIA as qualified to perform high-complexity testing. Fentanyl is used for clinical purposes in conjunction with other laboratory tests. Ordering Provider: PERFECTO BOLES Report Released Date/Time: Oct 27, 2024 10:25 AM Reporting Lab: [address] [address] Performing Lab: [address] [address] ETHANOL <10 mg/dL 0-9 AMPHET/METHAMPHETAMINE Negative ng/mL COCAINE METABOLITES Negative ng/mL BENZODIAZEPINES (STL) Negative ng/mL CANNABINOIDS Negative ng/mL METHADONE Negative ng/mL OPIATES Negative ng/mL CREATININE URINE/OTHERS 68.8 mg/dL 63-16 6 OXYCODONE (NOUYO-EHB-VH) Negative ng/mL BUPRENORPHINE (STL-PB-MA) Negative ng/mL FENTANYL (STL) Negative ng/mL Oct 27, 2024 10:29 AM [facility] HGA1C BLOOD Specimen Type: BLOOD No comment entered. Ordering Provider: PERFECTO BOLES Report Released Date/Time: Oct 27, 2024 10:25 AM Reporting Lab: [facility] [address] [place] [address] Performing Lab: [facility] [address] [place] [address] HGA1C 5.9 4.0-6.0 Oct 27, 2024 10:29 AM [facility] VITAMIN D, 25-HYDROXY SERUM Specimen Type: SE RUM No comment entered. Ordering Provider: PERFECTO BOLES Report Released Date/Time: Oct 27, 2024 10:25 AM Reporting Lab: [facility] [address] [place] [address] Performing Lab: [facility] [address] [place] [address] VITAMIN D, 25-HYDROXY 24.1 ng/mL L 30-96 Oct 27, 2024 10:29 AM [facility] PT/INR NEW (STL-MA) PLASMA Specimen Type: PLAS MA No comment entered. Ordering Provider: PERFECTO BOLES Report Released Date/Time: Oct 27, 2024 10:25 AM Reporting Lab: [facility] [address] [place] [address] Performing Lab: [facility] [address] [place] [address] PROTIME 11.3 s 9.4-12.5 INR VALUE 1.0 {INR} Oct 27, 2024 10:29 AM [facility] COMPREHENSIVE METABOLIC PANEL PLASMA Specimen Type: PLASMA Comment: No hemolysis noted. Ordering Provider: PERFECTO BOLES Report Released Date/Time: Oct 27, 2024 10:25 AM Reporting Lab: [facility] [address] [place] [place] [address] Performing Lab: [facility] [address] [place] [address] CREATININE 0.99 mg/dL 0.7-1.3 UREA NITROGEN 17.9 [...] 78.0 >60 Oct 27, 2024 10:29 AM [facility] CBC BLOOD Specimen Type: BLOOD No comment entered. Ordering Provider: PERFECTO BOLES Report Released Date/Time: Oct 27, 2024 10:25 AM Reporting Lab: [facility] [address] [facility] [address] Performing Lab: [facility] [address] [place] [address] WBC 4.8 10*3/uL 3.6-11.2 RBC 4.34 10*6/uL [...] 12, [address] [facility] December 24, 2011 ADVANCE DIRECTIVE DISCUSSION TOMMY VAZQUEZ [facility] Radiology Reports: +/- 30 days of the [...] the Encounter. The data comes from all [place] treatment facilities. Date/Time Radiology Report Provider Source Nov 18, 2024 02:12 PM KNEE,RIGHT,1 OR 2 VIEWS: JOYCELYN SEPULVEDA [id number] -1945 M Exm Date: NOV 18, 2024@14:12 Req Phys: YOVANI DUNN Loc: 5C PCU OE-[facility]/11-19-2024@07:05 Img Loc: [facility]MAIN RADIOLOGY SUITE Service: [address] [address] (Case [id number] COMPLETE) KNEE,RIGHT,1 OR 2 VIEWS (RAD Detailed) CPT:09860 Proc Modifiers : OR, RIGHT, AP & LAT Reason for Study: postop in OR R TKA Clinical History: Do films need to be ortho templated printed? No Report Status: Verified Date Reported: NOV 19, 2024 Date Verified: NOV 19, 2024 Cloth Carrier E-Sig:/ES/Kuldip Decker MD Report: FINDINGS: Right knee replacement is noted and position appears satisfactory. Impression: Right knee replacement shows satisfactory position. Primary Interpreting Staff: Kuldip Decker MD, Radiologist (Cloth Carrier) /QMB KULDIP DECKER [facility] Nov 01, 2024 09:58 AM NM MYOCARDIAL P SP ECT STRESS/REST-P: JOYCELYN SEPULVEDA [id number] -1945 M Exm Date: NOV 01, 2024@09:58 Req Phys: SUSANNA HILLS Loc: [facility]-CARDIO E-CONSULT (Req'g Loc Img Loc: [facility]NUCLEAR MEDICINE Service: Unknown [facility], [address] [place] [address] (Case [id number] COMPLETE) NM MYOCARDIAL PERF SPECT STRESS/R(NM Detailed) CPT:13587 Reason for Study: Pre-op Assessment' (Case 1429 COMPLETE) TC-99M TETROFOSMIN (MYOVIEW) (NM Detailed) CPT:A9502 (Case 1430 COMPLETE) TC-99M TETROFOSMIN (MYOVIEW), PE(NM Detailed) CPT:A9502 (Case 1431 COMPLETE) NON-HEU TC-99M ADD-ON PER STUDY D(NM Detailed) CPT:Q9969 (Case 1737 COMPLETE) REGADENOSON INJECTION (NM Detailed) CPT:J2785 Clinical History: Pre-op Assessment Report Status: Verified Date Reported: NOV 01, 2024 Date Verified: NOV 01, 2024 Cloth Carrier E-Sig:/ES/Bon Castro MD,PhD Report: PATIENT NAME: JOYCELYN SEPULVEDA CASE #: [id number], [id number], [id number], [id number], [id number] EXAMINATION: Rest/Lexiscan Stress Gated SPECT Myocardial Imaging [...] Staff: Bon Castro MD,PhD, Nuclear Medicine Physician (Cloth Carrier) Primary Interpreting Resident: RADHA PROCTOR MD /BON Ruelas [facility] Pathology Reports: +/- 30 days [...] the Encounter. The data comes from all [place] treatment facilities. Date/Time Pathology Report Provider Source Nov 22, 2024 12:56 PM LR SURGICAL PATHOL OGJun REPORT: LOCAL TITLE: LR SURGICAL PATHOLOGY REPORT [...] - - - - GROSS DESCRIPTION: ([place], 4-18-2025) The specimen is received without fixative, in [...] x 3.0 cm for soft tissue fragments. Driving Teacher sections are submitted, following decalcification in RDO, in two cassettes A1-A2 MICROSCOPIC EXAM: ([place]) Microscopic examination of the sections submitted from right knee bone shows variable loss of articular cartilage with fibrillation and splitting. DIAGNOSIS: RIGHT KNEE BONE, RIGHT TOTAL KNEE ARTHROPLASTY: DEGENERATIVE CHANGES /brianda/ STUART RIVERS Pathologist Signed Nov 22, 2024@12:56 Performing Laboratory: Surgical Pathology Report [facility] By: [facility] [address] [place] [address] CLIA# [id number] [address] [place] [phone] $FTR - - - - - - - - - - - - - - - - - - - - - - - - - - - - - - - - - - - - - - - - (End of report) STUART RIVERS MD [facility] Date Nov 22, 2024 - - - - - - - - - - - - - - - - - - - - - - - - - - - - - - - - - - - - - - - - JOYCELYN SEPULVEDA STANDARD FORM 515 ID:[id number] SEX:M :1945 AGE: 78 LOC:APFEE PCP: Alondra Bryant /brianda/ STUART RIVERS Pathologist Signed: 11/22/2024 12:56 STUART RIVERS [facility] Encounter Notes: All associated encounter notes This section contains the clinical notes associated to the Encounter. Date/Time Encounter Note(s) Provider Source Nov 08, 2024 01:57 PM NONVA NOTE: LOCAL TITLE: COMMUNITY CARE-CARE COORDINATION PLAN NOTE 657 ST[address] STANDARD TITLE: NONVA NOTE DATE OF NOTE: NOV 08, 2024@13:57 ENTRY DATE: NOV 08, 2024@13:57:57 AUTHOR: GUERA ROSEN EXP COSIGNER: URGENCY: STATUS: COMPLETED COMMUNITY CARE-CARE COORDINATION PLAN NOTE 657 [address] Has ADDENDA THE PATIENT HAS BEEN REFERRED TO THE FOLLOWING SERVICES HOME CARE SERVICES: Community skilled home health care SN/WC, PT - in accordance with [place] Standardized Episode of Care (SEOC) HOME CARE SERVICE FUNDING: [place]: OPTUM NAME OF AGENCY TO PROVIDE CARE: AdeyohKONSTANTIN [facility] ; [address], [place], [address] /[phone] DURATION OF CARE (Non-Hospice Services): 120 Days OR WHENEVER PATIENT GOALS ARE MET, WHICHEVER COMES FIRST Date service is projected to start: 11/20/24 ([facility] consults terminate automatically after 120 days) *Please send all correspondence/orders to be signed to: CARLA YAÑEZ EXT [phone] PLAN: New Services-Transition to Skilled Home Health Services. Helpful phone numbers: [facility] Senior Sales Operations Analyst [facility] Email: [email or web address] ELVIRA ONEILL, RN REGISTERED NURSE Signed: 11/08/2024 13:59 11/25/2024 ADDENDUM STATUS: COMPLETED PROVIDER CONTACT Zana Brown contacted on Nov. Clincal notes from SOC, 11/20/24. 19 pgs. Sent to scanning Action Needed? No /es/ ELVIRA ONEILL, RN REGISTERED NURSE Signed: 11/25/2024 14:04 GUERA ROSEN [facility]
--- OUTSIDE RECORDS SUMMARY | 2024-11-18 09:39 | XMS_ITS | Encounter Summary ---
Author Name [facility] [place] Organization [facility] [place] Address [address] [place] [address] Care Team Providers Care Implementation Lead Name Role Phone KOLE GARY Primary Care [...] Name Patient's Relationship to Policy Wiseman [facility] (WNR) MEDICARE ADVANTAGE [facility] (WNR) Aug 03, 2017 [facility] (WN) [id number] [phone] FR RAE SEPULVEDA PATIENT [employer] [facility] (WNR) MEDICARE ADVANTAGE [facility] (WNR) December 01, 2022 [id number] [phone] FR RAE SEPULVEDA PATIENT [employer] [facility] (WNR) MEDICARE ADVANTAGE [facility] (WNR) December 01, 2022 [id number] [phone] FR RAE SEPULVEDA PATIENT [employer] [facility] (WNR) MEDICARE ADVANTAGE [facility] ( WNR) December 01, 2022 [id number] [phone] FR RAE SEPULVEDA PATIENT [employer] [facility] (WNR) MEDICARE ADVANTAGE [facility] (WNR) Aug 03, 2021 [id number] [phone] FR RAE SEPULVEDA PATIENT [employer] [facility] (WNR) MEDICARE ADVANTAGE [facility] (WNR) Aug 03, 2017 [id number] [phone] FR RAE SEPULVEDA PATIENT [employer] [facility] (WNR) MEDICARE ADVANTAGE [facility] (WNR) Aug 03, 2017 [id number] [phone] FR RAE SEPULVEDA PATIENT Selected Encounter This section includes the information on record at [place] for the Encounter. Date/Time Encounter Type Encounter Description Reason Provider Source Nov 18, 2024 02:39 PM Outpatient Encounter ADMIN PAT ACTIVTIES (MASNONCT) ABELARDO KNOWLES Encounter Template Text not used by PA Plan of Treatment: Future Appointments (+ 6 months) and Future Tests (+/- 45 days) The Plan of Treatment section includes future care activities for the patient from all PA treatmentfacilities. This section includes future appointments and future orders which are active, pending or scheduled. Future Appointments This section includes appointments that were scheduled to occur 6 months from the date of the Encounter, up to a maximum of 20 appointments. The data comes from all [place] treatment facilities. Appointment Date/Time Appointment Type Appointme nt Facility Name Nov 20, 2024 08:00 AM AMBULATORY - NONE [facility] Nov 21, 2024 09:30 AM AMBULATORY - MEDICINE [facility] Nov 28, 2024 09:30 AM AMBULATORY - MEDICINE [facility] Nov 30, 2024 10:00 AM AMBULATORY - MEDICINE [facility] December 05, 2024 09:30 AM AMBULATORY - MEDICINE [facility] December 12, 2024 09:30 AM AMBULATORY - MEDICINE [facility] December 12, 2024 02:00 PM AMBULATORY - REHAB MEDICIN E [facility] December 13, 2024 11:00 AM AMBULATORY - SURGERY [facility] December 14, 2024 10:00 AM AMBULATORY - SURGERY [facility] December 19, 2024 09:30 AM AMBULATORY - MEDICINE [facility] December 19, 2024 11:00 AM AMBULATORY - REHAB MEDICIN E [facility] December 28, 2024 02:45 PM AMBULATORY - MEDICINE [facility] Jan 02, 2025 10:30 AM AMBULATORY - REHAB MEDICIN [facility] Jan 09, 2025 09:30 AM AMBULATORY - MEDICINE [facility] Jan 09, 2025 10:30 AM AMBULATORY - NONE [facility] Jan 10, 2025 09:00 AM AMBULATORY - MEDICINE [facility] Jan 11, 2025 02:00 PM AMBULATORY - REHAB MEDICIN E [facility] Jan 16, 2025 09:30 AM AMBULATORY - MEDICINE [facility] Jan 18, 2025 09:30 AM AMBULATORY - REHAB MEDICIN E [facility] Jan 18, 2025 10:30 AM AMBULATORY - SURGERY [facility] Active, Pending, and Scheduled Orders This section includes a listing of several types of active, pending, and scheduled orders, including clinic medications orders, diagnostic test orders, procedure orders and consult orders; where the start date of the order is 45 days before the date of the Encounter or 45 days after the date of theEncounter. The data comes from all [place] treatment facilities. Test Date/Time Test Type Test Details Facility Name Oct 27, 2024 12:00 AM Laboratory - Blood Bank Order TYPE & SCREEN - LAB BLOOD SP [facility] Nov 18, 2024 06:00 AM Laboratory - Blood Bank Order TYPE & SCREEN - LAB BLOOD STAT [facility] Lab Results: +/- 30 days of the encounter This section includes the Chemistry and Hematology Lab Results on record with PA for the patient. Radiology Reports and Pathology Reports are provided separately, in subsequent sections. Lab Results This section contains the Chemistry/Hematology Results that were resulted 30 days before or 30 daysafter the date of the Encounter. Date/Time Source Result Type Result - Unit Interpretation Reference Range Specimen Type Comment Nov 19, 2024 02:24 PM [facility] BASIC METABOLIC PANEL PLASMA Specimen Type: PLASMA Comment: No hemolysis noted. Ordering Provider: BESSY HOYT Report Released Date/Time: Nov 19, 2024 06:00 AM Reporting Lab: [address] [address] Performing Lab: [address] [address] CREATININE 1.16 mg/dL 0.7-1.3 UREA NITROGEN 21.3 mg/dL 9.0-25.0 GLUCOSE 101 mg/dL H 72-99 SODIUM 133 meq/L L 136-145 POTASSIUM 4.4 meq/L 3.5-5 CHLORIDE 100 meq/L 98-107 CARBON DIOXIDE 21 meq/L L 22-31 CALCIUM 9.4 mg/dL 8.4-10.4 EGFR (CKD-EPI 2020) 64.5 >60 Nov 19, 2024 11:54 AM [facility] BASIC METABOLIC PANEL PLASMA Specimen Type: PL ASMA Comment: No hemolysis noted. Ordering Provider: JEFFERSON VITAL Report Released Date/Time: Nov 19, 2024 11:44 AM Reporting Lab: [address] [address] Performing Lab: [address] [address] CREATININE 1.15 mg/dL 0.7-1.3 UREA NITROGEN 23.4 mg/dL 9.0-25.0 GLUCOSE 107 mg/dL H 72-99 SODIUM 132 meq/L L 136-145 POTASSIUM 4.1 meq/L 3.5-5 CHLORIDE 101 meq/L 98-107 CARBON DIOXIDE 23 meq/L 22-31 CALCIUM 9.2 mg/dL 8.4-10.4 EGFR (CKD-EPI 2020) 65.1 >60 Nov 19, 2024 11:54 AM [facility] CBC BLOOD Specimen Type: BLOOD Comment: SCAN OF SLIDE AGREES WITH AUTOMATED DIFF Ordering Provider: JEFFERSON VITAL Report Released Date/Time: Nov 19, 2024 11:44 AM Reporting Lab: [address] [address] Performing Lab: [address] [address] WBC 11.2 10*3/uL 3.6-11.2 RBC 3.49 10*6/uL [...] 0.00-0. 20 Nov 18, 2024 06:00 PM [facility] MRSA SURVL NARES DNA NARES Specimen [...] Nov 18, 2024 03:43 PM Reporting Lab: [facility] [address] [facility] [address] Performing Lab: [facility] [address] [place] [phone] MRSA SURVL NARES DNA Negative Negative Nov 16, 2024 08:28 AM [facility] TSH W/ REFLEX FT4 (STL) PLASMA Specimen Type: PLASMA No comment entered. Ordering Provider: ALONDRA BRYANT Report Released Date/Time: Nov 01, 2024 04:02 PM Reporting Lab: [address] [address] Performing Lab: [address] [address] TSH 1.991 u[IU]/mL 0.47-5 Nov 16, 2024 08:28 AM [facility] BASIC METABOLIC PANEL PLASMA Specimen Type: PL ASMA Comment: No hemolysis noted. Ordering Provider: ALONDRA BRYANT Report Released Date/Time: Nov 01, 2024 04:02 PM Reporting Lab: [address] [address] Performing Lab: [place] [address] [facility] [address] CREATININE 1.02 mg/dL 0.7-1.3 UREA NITROGEN 14.7 mg/dL 9.0-25.0 GLUCOSE 98 mg/dL 72-99 SODIUM 134 meq/L L 136-145 POTASSIUM 4.2 meq/L 3.5-5 CHLORIDE 100 meq/L 98-107 CARBON DIOXIDE 24 meq/L 22-31 CALCIUM 9.5 mg/dL 8.4-10.4 EGFR (CKD-EPI 2020) 75.2 >60 Nov 01, 2024 12:05 PM [facility] URINALYSIS (L-PB) URINE Specimen Type: URIN E No comment entered. Ordering Provider: PERFECTO BOLES Report Released Date/Time: Oct 27, 2024 10:25 AM Reporting Lab: [address] [address] Performing Lab: [place] [address] [facility] [address] URINE COLOR Light-Yellow Yellow U.BILIRUBIN Negative mg/dL Negative U.PH 6.5 5.0-8.0 APPEARANCE Clear Clear U.NITRITE Negative mg/dL Negative URN.GLUCOSE Normal mg/dL Negative URN.PROTEIN Negative mg/dL URN.UROBILINOGEN Normal mg/dL Normal URN.BLOOD Negative mg/dL Negative-Trace URN.KETONES Negative mg/dL Negative-Trac e URN.LEUK.EST. Negative mg/dL Negative-Tr sweta URN.SPECIFIC GRAVITY 1.012 Nov 01, 2024 12:05 PM [facility] URINE DRUG SCREEN (STL) URINE Specimen Type: URINE Comment: The cut-off value for Fentanyl was laboratory developed and its performance characteristics confirmed by the [facility] laboratory thru method comparison with reference laboratory and medication chart review. The laboratory is regulated under CLIA as qualified to perform high-complexity testing. Fentanyl is used for clinical purposes in conjunction with other laboratory tests. Ordering Provider: PERFECTO BOLES Report Released Date/Time: Oct 27, 2024 10:25 AM Reporting Lab: [facility] [address] [facility] [address] Performing Lab: [address] [address] ETHANOL <10 mg/dL 0-9 AMPHET/METHAMPHETAMINE Negative ng/mL COCAINE METABOLITES Negative ng/mL BENZODIAZEPINES (STL) Negative ng/mL CANNABINOIDS Negative ng/mL METHADONE Negative ng/mL OPIATES Negative ng/mL CREATININE URINE/OTHERS 68.8 mg/dL 63-16 6 OXYCODONE (KSYKS-TMH-KW) Negative ng/mL BUPRENORPHINE (STL-PB-MA) Negative ng/mL FENTANYL (STL) Negative ng/mL Nov 01, 2024 12:05 PM [facility] BASIC METABOLIC PANEL PLASMA Specimen Type: PL ASMA Comment: No hemolysis noted. Ordering Provider: ANDER LONGO Report Released Date/Time: Nov 01, 2024 11:45 AM Reporting Lab: [facility] [address] [facility] [address] Performing Lab: [address] [address] CREATININE 1.03 mg/dL 0.7-1.3 UREA NITROGEN 16.5 mg/dL 9.0-25.0 GLUCOSE 93 mg/dL 72-99 SODIUM 129 meq/L L 136-145 POTASSIUM 3.6 meq/L 3.5-5 CHLORIDE 98 meq/L 98-107 CARBON DIOXIDE 23 meq/L 22-31 CALCIUM 8.7 mg/dL 8.4-10.4 EGFR (CKD-EPI 2020) 74.4 >60 Oct 27, 2024 10:29 AM [facility] HGA1C BLOOD Specimen Type: BLOOD No comment entered. Ordering Provider: PERFECTO BOLES Report Released Date/Time: Oct 27, 2024 10:25 AM Reporting Lab: [facility] [address] [facility] [address] Performing Lab: [facility] [address] [place] [address] HGA1C 5.9 4.0-6.0 Oct 27, 2024 10:29 AM [facility] VITAMIN D, 25-HYDROXY SERUM Specimen Type: SE RUM No comment entered. Ordering Provider: PERFECTO BOLES Report Released Date/Time: Oct 27, 2024 10:25 AM Reporting Lab: [address] [address] Performing Lab: [facility] [address] [place] [address] VITAMIN D, 25-HYDROXY 24.1 ng/mL L 30-96 Oct 27, 2024 10:29 AM [facility] PT/INR NEW (STL-MA) PLASMA Specimen Type: PLAS MA No comment entered. Ordering Provider: PERFECTO BOLES Report Released Date/Time: Oct 27, 2024 10:25 AM Reporting Lab: [facility] [address] [place] [address] Performing Lab: [facility] [address] [place] [address] PROTIME 11.3 s 9.4-12.5 INR VALUE 1.0 {INR} Oct 27, 2024 10:29 AM [facility] COMPREHENSIVE METABOLIC PANEL PLASMA Specimen Type: PLASMA Comment: No hemolysis noted. Ordering Provider: PERFECTO BOLES Report Released Date/Time: Oct 27, 2024 10:25 AM Reporting Lab: [facility] [address] [place] [address] Performing Lab: [facility] [address] [place] [address] CREATININE 0.99 mg/dL 0.7-1.3 UREA NITROGEN 17.9 [...] 78.0 >60 Oct 27, 2024 10:29 AM [facility] BLOOD Specimen Type: BLOOD No comment entered. Ordering Provider: PERFECTO BOLES Report Released Date/Time: Oct 27, 2024 10:25 AM Reporting Lab: [facility] [address] [facility] [address] Performing Lab: [place] [address] [facility] [address] WBC 4.8 10*3/uL 3.6-11.2 RBC 4.34 10*6/uL [...] Height Weight Body Mass Index Source Nov 18, 2024 09:19 PM 6 [facility] Nov 18, 2024 08:59 PM 97.2 65 152/76 20 96 0 226 37 [facility] Nov 18, 2024 05:08 PM 0 [facility] Nov 18, 2024 04:20 PM 97.8 59 138/67 18 95 0 [facility] Nov 18, 2024 03:58 PM 97.4 57 134/65 18 94 0 [facility] Advance Directives: All historical and [...] [address] [facility] December 24, 2011 ADVANCE DIRECTIVE DISCUSSION TOMMY VAZQUEZ [facility] Radiology Reports: +/- 30 days of the [...] the Encounter. The data comes from all [place] treatment facilities. Date/Time Radiology Report Provider Source Nov 18, 2024 02:12 PM KNEE,RIGHT,1 OR 2 VIEWS: JOYCELYN SEPULVEDA [id number] -1945 M Exm Date: NOV 18, 2024@14:12 Req Phys: YOVANI DUNN Loc: 5C PCU -/11-19-2024@07:05 Img Loc: -MAIN RADIOLOGY SUITE Service: Unknown [address] [address] (Case [id number] COMPLETE) KNEE,RIGHT,1 OR 2 VIEWS (RAD Detailed) CPT:69512 Proc Modifiers : OR, RIGHT, AP & LAT Reason for Study: postop in OR R TKA Clinical History: Do films need to be ortho templated printed? No Report Status: Verified Date Reported: NOV 19, 2024 Date Verified: NOV 19, 2024 Aircraft Refueller E-Sig:/ES/Kuldip Decker MD Report: FINDINGS: Right knee replacement is noted and position appears satisfactory. Impression: Right knee replacement shows satisfactory position. Primary Interpreting Staff: Kuldip Decker MD, Radiologist (Aircraft Refueller) /QMB KULDIP DECKER [facility] Nov 01, 2024 09:58 AM NM MYOCARDIAL P SP ECT STRESS/REST-P: JOYCELYN SEPULVEDA [id number] -1945 M Exm Date: NOV 01, 2024@09:58 Req Phys: SUSANNA HILLS Loc: -CARDIO E-CONSULT (Req'g Loc Img Loc: -NUCLEAR MEDICINE Service: Unknown [address] [address] (Case [id number] COMPLETE) NM MYOCARDIAL PERF SPECT STRESS/R(NM Detailed) CPT:94711 Reason for Study: Pre-op Assessment' (Case 1429 COMPLETE) TC-99M TETROFOSMIN (MYOVIEW) (NM Detailed) CPT:A9502 (Case 1430 COMPLETE) TC-99M TETROFOSMIN (MYOVIEW), PE(NM Detailed) CPT:A9502 (Case 1431 COMPLETE) NON-HEU TC-99M ADD-ON PER STUDY D(NM Detailed) CPT:Q9969 (Case 1737 COMPLETE) REGADENOSON INJECTION (NM Detailed) CPT:J2785 Clinical History: Pre-op Assessment Report Status: Verified Date Reported: NOV 01, 2024 Date Verified: NOV 01, 2024 Aircraft Refueller E-Sig:/ES/Bon Castro MD,PhD Report: PATIENT NAME: JOYCELYN SEPULVEDA CASE #: [id number], [id number], [id number], [id number] EXAMINATION: Rest/Lexiscan Stress Gated SPECT Myocardial Imaging [...] Staff: Bon Castro MD,PhD, Nuclear Medicine Physician (Arbovax) Primary Interpreting Resident: RADHA PROCTOR MD /BON Ruelas [facility] Pathology Reports: +/- 30 days [...] the Encounter. The data comes from all [place] treatment facilities. Date/Time Pathology Report Provider Source [...] - - - POSTOPERATIVE DIAGNOSIS: Surgeon/physician: JEFFERSON Velasquez ZAHRAA =-=-=-=-=-=-=-=-=-=-=-=-=-= -=-=-=-=-=-=-=-=-=-=-=-=-=- =-=-=-=-=-=-=-=-=-=-=-=-= - - - - [...] x 3.0 cm for soft tissue fragments. Commercial Project Manager sections are submitted, following decalcification in RDO, in two cassettes A1-A2 MICROSCOPIC EXAM: ([place]) Microscopic examination of the sections submitted from right knee bone shows variable loss of articular cartilage with fibrillation and splitting. DIAGNOSIS: RIGHT KNEE BONE, RIGHT TOTAL KNEE ARTHROPLASTY: DEGENERATIVE CHANGES /es/ NECAT Umu RIVERS Pathologist Signed Nov 22, 2024@12:56 Performing Laboratory: Surgical Pathology Report [facility]: [facility] CLIA# [id number] [address] [facility] [address] [place] [address] $FTR - - - - - - - - - - - - - - - - - - - - - - - - - - - - - - - - - - - - - - - - (End of report) STUART RIVERS MD [facility] Date Nov 22, 2024 - - - - - - - - - - - - - - - - - - - - - - - - - - - - - - - - - - - - - - - - JOYCELYN SEPULVEDA STANDARD FORM 515 ID:[id number] SEX:M :1945 AGE: 78 LOC:APFEE PCP: Alondra Bryant /brianda/ STUART RIVERS Pathologist Signed: 11/22/2024 12:56 STUART RIVERS [facility] Encounter Notes: All associated encounter notes This section contains the clinical notes associated to the Encounter. Date/Time Encounter Note(s) Provider Source Nov 18, 2024 02:39 PM ANESTHESIOLOGY ZARINA WSHEET: LOCAL TITLE: ANES INTRA-OP FLOWSHEET STL STANDARD TITLE: ANESTHESIOLOGY FLOWSHEET DATE OF NOTE: NOV 18, 2024@14:39 ENTRY DATE: NOV 18, 2024@14:39:33 AUTHOR: ABELARDO KNOWLES COSIGNER: POLI LAGOS URGENCY: STATUS: COMPLETED Patient: JOYCELYN SEPULVEDA SSN: [id number] Date of Operation: 11/18/2024 Surgery Start Time: 11/18/2024 11:30 Surgery End Time: 11/18/2024 14:30 Anesthesia Care Start: 11/18/2024 10:53 Anesthesia Care End: 11/18/2024 14:43 Anesthesia Method: Regional - Neuraxial 11/18/2024 11:07 (Primary), Type: Spinal - Single Shot, Patient Position: Sitting, Needle Type: Pencil Point (Blunt), Needle Size (Ga): 25, Needle Length (in): 3.5, Needle Introducer, 1 Number Of Attempts, Aspiration Of CSF: Positive, Aspiration Of Blood: Negative Patient Location: Pre Induction - OR Indications: Intraoperative Anesthesia Timing: Placed Pre Induction Sterile Procedure Prep: Full Aseptic Technique, Chlorhexidine Technique: Relative External Anatomy Identified, Lidocaine Infiltration Aspiration During Injection: Pre Injection, Post Injection Solution Injected: Hyperbaric Observation: CSF - Free Flow, CSF - Clear, No Signs Of Local Anesthetic Toxicity Positioning: Head Neutral, Head And Neck In Alignment With Spine, Pressure Points Padded & Checked, Eyes, Ears And Nose Free Of Pressure ASA Number: 3 Procedure: RIGHT TOTAL KNEE ARTHROPLASTY Diagnosis: RIGHT KNEE OSTEOARTHRITIS Holding, Anesthesia, PACU Drugs: -------- Vancomycin: 1.5 g Phenylephrine gtt: 6502.724 mcg Acetaminophen IVPB: 1 g Midazolam: 2 mg FentaNYL: 100 mcg Bupivcaine 0.75% & Dextrose 8.25%: 2 ml Propofol: 50 mg Tranexamic Acid: 2000 mg ceFAZolin: 2 g HYDROmorphone: 0.4 mg Ondansetron: 4 mg Propofol gtt: 1976.353 mg Dexamethasone: 8 mg Holding, Anesthesia, PACU Fluids: --------- Ringers Lactated Solution: 1000 ml Estimated Blood Loss: 500 ml Resources: Aquacel foam placed on noé prominence to protect skin during surgery Safety Belt Staff: --------- JEFF[facility]ITAL, SURGEON JEFF[facility], ATT. SURGEON PADMINI ROSENBAUM, Holding Nurse ABELARDO KNOWLES PRIN. ANES. AGARWAL, MAYANK, ANES. SUPER. CRECELIUS, CURT, ASIM HEEL CURVER Anesthesia Procedure: ---- Procedure 11/18/2024 9:01 In Situ, Line Number: 1, Site: Arm, Laterality: Right, Catheter Type: Angio, Catheter Size: 18 Ga Procedure 11/18/2024 13:15 Site: Thigh, Laterality: Right, Tourniquet Pressure (mmHg): 250 13:15 Tourniquet Inflated 13:41 Tourniquet Deflated Total Time: 00:25:31 13:41 Surgeon Notified Of Tourniquet Time Procedure Date: 11/18/2024 Procedure Start Time: Procedure End Time: /brianda/ ABELARDO KNOWLES RESIDENT PHYSICIAN Signed: 11/18/2024 14:40 /jemma LAGOS STAFF ANESTHESIOLOGIST Cosigned: 11/18/2024 14:53 ABELARDO KNOWLES [facility]
--- OUTSIDE RECORDS SUMMARY | 2024-11-18 10:34 | XMS_ITS ---
Author Name [facility] [place] Organization [facility] [place] Address [address] [place] [address] Care Team Providers Care Manager Beverage Name Role Phone KOLE GARY Primary Care [...] Name Patient's Relationship to Policy Wiseman [facility] (WNR) MEDICARE ADVANTAGE [facility] (WNR) Aug 03, 2017 [facility] (WN) [id number] [phone] FR RAE SEPULVEDA PATIENT [employer] [facility] (WNR) MEDICARE ADVANTAGE [facility] (WNR) December 01, 2022 [id number] [phone] FR RAE SEPULVEDA PATIENT [employer] [facility] (WNR) MEDICARE ADVANTAGE [facility] (WNR) December 01, 2022 [id number] [phone] FR RAE SEPULVEDA PATIENT [employer] [facility] (WNR) MEDICARE ADVANTAGE [facility] ( WNR) December 01, 2022 [id number] [phone] FR RAE SEPULVEDA PATIENT [employer] [facility] (WNR) MEDICARE ADVANTAGE [facility] (WNR) Aug 03, 2021 [id number] [phone] FR RAE SEPULVEDA PATIENT [employer] [facility] (WNR) MEDICARE ADVANTAGE [facility] (WNR) Aug 03, 2017 [id number] [phone] FR COCO ANK PATIENT [employer] [facility] (WNR) MEDICARE ADVANTAGE [facility] (WNR) Aug 03, 2017 [id number] [phone] FR RAE SEPULVEDA PATIENT Selected Encounter This section includes the information on record at [place] for the Encounter. Date/Time Encounter Type Encounter Description Reason Provider Source Nov 18, 2024 03:34 PM Outpatient Encounter ADMIN PAT ACTIVTIES (MASNONCT) REKHA BURKETT Encounter Template Text not used by [place] Plan of Treatment: Future Appointments (+ 6 months) and Future Tests (+/- 45 days) The Plan of Treatment section includes future care activities for the [facility] [place] [facility] [place] This section includes future appointments and future [...] 20, 2024 08:00 AM AMBULATORY - NONE [facility] Nov 21, 2024 09:30 AM AMBULATORY - MEDICINE [facility] Nov 28, 2024 09:30 AM AMBULATORY - MEDICINE [facility] Nov 30, 2024 10:00 AM AMBULATORY - MEDICINE [facility] December 05, 2024 09:30 AM AMBULATORY - MEDICINE [facility] December 12, 2024 09:30 AM AMBULATORY - MEDICINE [facility] December 12, 2024 02:00 PM AMBULATORY - REHAB MEDICIN [facility] December 13, 2024 11:00 AM AM[facility]UL[facility]ORY [facility] SUR[facility] December 14, 2024 10:00 AM AMBULATORY - SURGERY [facility] December 19, 2024 09:30 AM AMBULATORY - MEDICINE [facility] December 19, 2024 11:00 AM AMBULATORY - REHAB MEDICIN [facility] December 28, 2024 02:45 PM AMBULATORY - MEDICINE [facility] Jan 02, 2025 10:30 AM AMBULATORY - REHAB MEDICIN [facility] Jan 09, 2025 09:30 AM [facility] Jan 09, 2025 10:30 AM AMBULATORY - NONE [facility] Jan 10, 2025 09:00 AM AMBULATORY - MEDICINE [facility] Jan 11, 2025 02:00 PM AMBULATORY - REHAB MEDICIN [facility] Jan 16, 2025 09:30 AM AMBULATORY - MEDICINE [facility] Jan 18, 2025 09:30 AM AMBULATORY - REHAB MEDICIN [facility] Jan 18, 2025 10:30 AM AMBULATORY - SURGERY [facility] Active, Pending, and Scheduled Orders This section includes a listing of several types of active, pending, and scheduled orders, including clinic medications orders, diagnostic test orders, procedure orders and consult orders; where the start date of the order is 45 days before the date of the Encounter or 45 days after the date of theEncounter. The data comes from all [place] treatment facilities. Test Date/Time Test Type Test Details Facility Name Oct 27, 2024 12:00 AM Laboratory - Blood Bank Order TYPE & SCREEN - LAB BLOOD SP [facility] Nov 18, 2024 06:00 AM Laboratory - Blood Bank Order TYPE & SCREEN - LAB BLOOD STAT [facility] Lab Results: +/- 30 days of the encounter This section includes the Chemistry and Hematology Lab Results on record with [place] for the patient. Radiology Reports and Pathology Reports are provided separately, in subsequent sections. Lab Results This section contains the Chemistry/Hematology Results that were resulted 30 days before or 30 daysafter the date of the Encounter. Date/Time Source Result Type Result - Unit Interpretation Reference Range Specimen Type Comment Nov 19, 2024 02:24 PM [facility] BASIC METABOLIC PANEL PLASMA Specimen Type: PLASMA Comment: No hemolysis noted. Ordering Provider: BESSY HOYT Report Released Date/Time: Nov 19, 2024 06:00 AM Reporting Lab: [facility] [place] [address] [address] Performing Lab: [address] [address] CREATININE 1.16 mg/dL 0.7-1.3 UREA NITROGEN 21.3 mg/dL 9.0-25.0 GLUCOSE 101 mg/dL H 72-99 SODIUM 133 meq/L L 136-145 POTASSIUM 4.4 meq/L 3.5-5 CHLORIDE 100 meq/L 98-107 CARBON DIOXIDE 21 meq/L L 22-31 CALCIUM 9.4 mg/dL 8.4-10.4 EGFR (CKD-EPI 2020) 64.5 >60 Nov 19, 2024 11:54 AM [facility] BASIC METABOLIC PANEL PLASMA Specimen Type: PL ASMA Comment: No hemolysis noted. Ordering Provider: [facility] Report Released Date/Time: Nov 19, 2024 11:44 AM Reporting Lab: [address] [address] Performing Lab: [address] [address] CREATININE 1.15 mg/dL 0.7-1.3 UREA NITROGEN 23.4 mg/dL 9.0-25.0 GLUCOSE 107 mg/dL H 72-99 SODIUM 132 meq/L L 136-145 POTASSIUM 4.1 meq/L 3.5-5 CHLORIDE 101 meq/L 98-107 CARBON DIOXIDE 23 meq/L 22-31 CALCIUM 9.2 mg/dL 8.4-10.4 EGFR (CKD-EPI 2020) 65.1 >60 Nov 19, 2024 11:54 AM [facility] CBC BLOOD Specimen Type: BLOOD Comment: SCAN OF SLIDE AGREES WITH AUTOMATED DIFF Ordering Provider: [facility] Report Released Date/Time: Nov 19, 2024 11:44 AM Reporting Lab: [address] [address] Performing Lab: [address] [address] WBC 11.2 10*3/uL 3.6-11.2 RBC 3.49 10*6/uL [...] 0.00-0. 20 Nov 18, 2024 06:00 PM [facility] MRSA SURVL NARES DNA NARES Specimen [...] Nov 18, 2024 03:43 PM Reporting Lab: [facility] [address] [facility] [address] Performing Lab: [address] [address] MRSA SURVL NARES DNA Negative Negative Nov 16, 2024 08:28 AM [facility] TSH W/ REFLEX FT4 (STL) PLASMA Specimen Type: PLASMA No comment entered. Ordering Provider: ALONDRA BRYANT Report Released Date/Time: Nov 01, 2024 04:02 PM Reporting Lab: [address] [address] Performing Lab: [address] [address] TSH 1.991 u[IU]/mL 0.47-5 Nov 16, 2024 08:28 AM [facility] BASIC METABOLIC PANEL PLASMA Specimen Type: PL ASMA Comment: No hemolysis noted. Ordering Provider: ALONDRA BRYANT Report Released Date/Time: Nov 01, 2024 04:02 PM Reporting Lab: [address] [address] Performing Lab: [address] [address] CREATININE 1.02 mg/dL 0.7-1.3 UREA NITROGEN 14.7 mg/dL 9.0-25.0 GLUCOSE 98 mg/dL 72-99 SODIUM 134 meq/L L 136-145 POTASSIUM 4.2 meq/L 3.5-5 CHLORIDE 100 meq/L 98-107 CARBON DIOXIDE 24 meq/L 22-31 CALCIUM 9.5 mg/dL 8.4-10.4 EGFR (CKD-EPI 2020) 75.2 >60 Nov 01, 2024 12:05 PM [facility] URINALYSIS (L-PB) URINE Specimen Type: URIN E No comment entered. Ordering Provider: PERFECTO BOLES Report Released Date/Time: Oct 27, 2024 10:25 AM Reporting Lab: [address] [address] Performing Lab: [address] [address] URINE COLOR Light-Yellow Yellow U.BILIRUBIN Negative mg/dL Negative U.PH 6.5 5.0-8.0 APPEARANCE Clear Clear U.NITRITE Negative mg/dL Negative URN.GLUCOSE Normal mg/dL Negative URN.PROTEIN Negative mg/dL URN.UROBILINOGEN Normal mg/dL Normal URN.BLOOD Negative mg/dL Negative-Trace URN.KETONES Negative mg/dL Negative-Trac e URN.LEUK.EST. Negative mg/dL Negative-Tr sweta URN.SPECIFIC GRAVITY 1.012 Nov 01, 2024 12:05 PM [facility] URINE DRUG SCREEN (STL) URINE Specimen Type: URINE Comment: The cut-off value for Fentanyl was laboratory developed and its performance characteristics confirmed by the [facility] laboratory thru method comparison with reference laboratory and medication chart review. The laboratory is regulated under CLIA as qualified to perform high-complexity testing. Fentanyl is used for clinical purposes in conjunction with other laboratory tests. Ordering Provider: PERFECTO BOLES Report Released Date/Time: Oct 27, 2024 10:25 AM Reporting Lab: [facility] [address] [facility] [address] Performing Lab: [address] [address] ETHANOL <10 mg/dL 0-9 AMPHET/METHAMPHETAMINE Negative ng/mL COCAINE METABOLITES Negative ng/mL BENZODIAZEPINES (STL) Negative ng/mL CANNABINOIDS Negative ng/mL METHADONE Negative ng/mL OPIATES Negative ng/mL CREATININE URINE/OTHERS 68.8 mg/dL 63-16 6 OXYCODONE (BFLQL-KTL-XM) Negative ng/mL BUPRENORPHINE (STL-PB-MA) Negative ng/mL FENTANYL (STL) Negative ng/mL Nov 01, 2024 12:05 PM [facility] BASIC METABOLIC PANEL PLASMA Specimen Type: PL ASMA Comment: No hemolysis noted. Ordering Provider: ANDER LONGO Report Released Date/Time: Nov 01, 2024 11:45 AM Reporting Lab: [facility] [address] [address] Performing Lab: [address] [address] CREATININE 1.03 mg/dL 0.7-1.3 UREA NITROGEN 16.5 mg/dL 9.0-25.0 GLUCOSE 93 mg/dL 72-99 SODIUM 129 meq/L L 136-145 POTASSIUM 3.6 meq/L 3.5-5 CHLORIDE 98 meq/L 98-107 CARBON DIOXIDE 23 meq/L 22-31 CALCIUM 8.7 mg/dL 8.4-10.4 EGFR (CKD-EPI 2020) 74.4 >60 Oct 27, 2024 10:29 AM [facility] HGA1C BLOOD Specimen Type: BLOOD No comment entered. Ordering Provider: PERFECTO BOLES Report Released Date/Time: Oct 27, 2024 10:25 AM Reporting Lab: [facility] [address] [facility] [address] Performing Lab: [facility] [address] [place] [address] HGA1C 5.9 4.0-6.0 Oct 27, 2024 10:29 AM [facility] VITAMIN D, 25-HYDROXY SERUM Specimen Type: SE RUM No comment entered. Ordering Provider: PERFECTO BOLES Report Released Date/Time: Oct 27, 2024 10:25 AM Reporting Lab: [facility] [address] [place] [phone] Performing Lab: [facility] [address] [facility] [address] VITAMIN D, 25-HYDROXY 24.1 ng/mL L 30-96 Oct 27, 2024 10:29 AM [facility] PT/INR NEW (STL-MA) PLASMA Specimen Type: PLAS MA No comment entered. Ordering Provider: PERFECTO BOLES Report Released Date/Time: Oct 27, 2024 10:25 AM Reporting Lab: [facility] [address] [place] [phone] Performing Lab: [facility] [address] [facility] [address] PROTIME 11.3 s 9.4-12.5 INR VALUE 1.0 {INR} Oct 27, 2024 10:29 AM [facility] COMPREHENSIVE METABOLIC PANEL PLASMA Specimen Type: PLASMA Comment: No hemolysis noted. Ordering Provider: PERFECTO BOLES Report Released Date/Time: Oct 27, 2024 10:25 AM Reporting Lab: [facility] [address] [facility] [address] Performing Lab: [facility] [address] [place] [address] CREATININE 0.99 mg/dL 0.7-1.3 UREA NITROGEN 17.9 [...] 78.0 >60 Oct 27, 2024 10:29 AM [facility] CBC BLOOD Specimen Type: BLOOD No comment entered. Ordering Provider: PERFECTO BOLES Report Released Date/Time: Oct 27, 2024 10:25 AM Reporting Lab: [facility] [address] [facility] [address] Performing Lab: [facility] [address] [address] WBC 4.8 10*3/uL 3.6-11.2 RBC 4.34 10*6/uL [...] Source Nov 18, 2024 09:19 PM 6 [facility] Nov 18, 2024 08:59 PM 97.2 65 152/76 20 96 0 226 37 [facility] Nov 18, 2024 05:08 PM 0 [facility] Nov 18, 2024 04:20 PM 97.8 59 138/67 18 95 0 [facility] Nov 18, 2024 03:58 PM 97.4 57 134/65 18 94 0 [facility] Advance Directives: All historical [...] 12, [address] [facility] December 24, 2011 ADVANCE DIRECTIVE DISCUSSION TOMMY VAZQUEZ [facility] Radiology Reports: +/- 30 days of the [...] PM KNEE,RIGHT,1 OR 2 VIEWS: JOYCELYN SEPULVEDA [id number] -1945 M Exm Date: NOV 18, 2024@14:12 Req Phys: YOVANI DUNN Loc: 5C PCU -/11-19-2024@07:05 Img Loc: -MAIN RADIOLOGY SUITE Service: Unknown [address] [address] (Case [id number] COMPLETE) KNEE,RIGHT,1 OR 2 VIEWS (RAD Detailed) CPT:96282 Proc Modifiers : OR, RIGHT, AP & LAT Reason for Study: postop in OR R TKA Clinical History: Do films need to be ortho templated printed? No Report Status: Verified Date Reported: NOV 19, 2024 Date Verified: NOV 19, 2024 General Expeditor E-Sig:/ES/Kuldip Decker MD Report: FINDINGS: Right knee replacement is noted and position appears satisfactory. Impression: Right knee replacement shows satisfactory position. Primary Interpreting Staff: Kuldip Decker MD, Radiologist (General Expeditor) /QMB KULDIP DECKER [facility] Nov 01, 2024 09:58 AM NM MYOCARDIAL P SP ECT STRESS/REST-P: JOYCELYN SEPULVEDA [id number] -1945 M Exm Date: NOV 01, 2024@09:58 Req Phys: SUSANNA HILLS Loc: -CARDIO E-CONSULT (Req'g Loc Img Loc: -NUCLEAR MEDICINE Service: Unknown [address] [address] (Case [id number] COMPLETE) NM MYOCARDIAL PERF SPECT STRESS/R(NM Detailed) CPT:47357 Reason for Study: Pre-op Assessment' (Case 1429 COMPLETE) TC-99M TETROFOSMIN (MYOVIEW) (NM Detailed) CPT:A9502 (Case 1430 COMPLETE) TC-99M TETROFOSMIN (MYOVIEW), PE(NM Detailed) CPT:A9502 (Case 1431 COMPLETE) NON-HEU TC-99M ADD-ON PER STUDY D(NM Detailed) CPT:Q9969 (Case [id number] COMPLETE) REGADENOSON INJECTION (NM Detailed) CPT:J2785 Clinical History: Pre-op Assessment Report Status: Verified Date Reported: NOV 01, 2024 Date Verified: NOV 01, 2024 General Expeditor E-Sig:/ES/Bon Castro MD,PhD Report: PATIENT NAME: JOYCELYN SEPULVEDA CASE #: [id number], [id number], [id number], [id number], [id number] EXAMINATION: Rest/Lexiscan Stress Gated SPECT Myocardial Imaging [...] Staff: Bon Castro MD,PhD, Nuclear Medicine Physician (General Expeditor) Primary Interpreting Resident: RADHA PROCTOR MD /BON Ruelas [facility] Pathology Reports: +/- 30 days of [...] comes from all [place] treatment facilities. Date/Time Pathology Report Provider Source [...] x 3.0 cm for soft tissue fragments. Dials Inspector sections are submitted, following decalcification in RDO, in two cassettes A1-A2 MICROSCOPIC EXAM: ([place]) Microscopic examination of the sections submitted from right knee bone shows variable loss of articular cartilage with fibrillation and splitting. DIAGNOSIS: RIGHT KNEE BONE, RIGHT TOTAL KNEE ARTHROPLASTY: DEGENERATIVE CHANGES /es/ NECYOLANDE RIVERS Pathologist Signed Nov 22, 2024@12:56 Performing Laboratory: Surgical Pathology Report Performed By: [facility] [address] [place] [address] CLIA# [id number] [address] [facility] [address] [place] [address] $FTR - - - - - - [...] - - JOYCELYN SEPULVEDA STANDARD FORM 515 ID:[id number] SEX:M :1945 AGE: 78 LOC:APFEE PCP: Alondra Bryant /brianda/ STUART RIVERS Pathologist Signed: 11/22/2024 12:56 STUART RIVERS [facility] Encounter Notes: All associated encounter notes This section contains the clinical notes associated to the Encounter. Date/Time Encounter Note(s) Provider Source Nov 18, 2024 03:34 PM ANESTHESIOLOGY ZARINA WSHEET: LOCAL TITLE: PACU POST-OP FLOWSHEET ST STANDARD TITLE: ANESTHESIOLOGY FLOWSHEET DATE OF NOTE: NOV 18, 2024@15:34 ENTRY DATE: NOV 18, 2024@15:34:40 AUTHOR: REKHA BURKETT COSIGNER: URGENCY: STATUS: COMPLETED Patient: JOYCELYN SEPULVEDA SSN: [id number] Anesthesia Method: Regional - Neuraxial 11/18/2024 11:07 [...] Eyes, Ears And Nose Free Of Pressure Regional - Peripheral 11/18/2024 14:49 Block Type: Saphenous Block, Laterality: Right, Guidance: Ultrasound, Needle Type: Echogenic, Needle Size (Ga): 22, Needle Length (in): 3, Intermittent Aspiration Of Blood: Negative, 1 Number Of Attempts, Co-Performed By: Resident Anesthesiologist 14:45 Time out Protocol Followed 14:45 Surgical Site/Side Verified Patient Location: PACU Indications: Maintain Post Operatively For Pain Control Timing: Placed Post Procedure Type: Single Injection Sterile Procedure Prep: Chlorhexidine Technique - Ultrasound Guided: Relevant Structures Identified, Nerve Bundles Identified, Local Anesthetic Spread Visualized Around Nerves Observation: No Signs Of Local Anesthetic Toxicity ASA Number: 3 Procedure: RIGHT TOTAL KNEE ARTHROPLASTY Diagnosis: RIGHT KNEE OSTEOARTHRITIS PACU Drugs: Ropivicane MPF 0.5%: 15 ml PACU Fluids: Anesthesia Procedure: --- Procedure 11/18/2024 9:01 In Situ, Line Number: 1, Site: Arm, Laterality: Right, Catheter Type: Angio, Catheter Size: 18 Ga Procedure 11/18/2024 13:15 Site: Thigh, Laterality: Right, Tourniquet Pressure (mmHg): 250 13:15 Tourniquet Inflated 13:41 Tourniquet Deflated Total Time: 00:25:31 13:41 Surgeon Notified Of Tourniquet Time Date of Operation: 11/18/2024 Anesthesia Care End: 11/18/2024 14:43 Resources: Aquacel foam placed on noé prominence to protect skin during surgery Safety Belt Staff: --------- [facility], SURGEON [facility], ATT. SURGEON PADMINI ROSENBAUM, Holding Nurse ABELARDO KNOWLES PRIN. ANES. AGARWAL, MAYANK, ANES. SUPER. CRECELIUS, CURT, ASIM CONCERT MANAGER REKHA BURKETT, Post-Op Nurse REKHA BURKETT, Post-Op Nurse Surgery Start Time: 11/18/2024 11:30 Procedure End Time: Moderate Sedation Care End: /es/ REKHA SOLISN RN REGISTERED NURSE Signed: 11/18/2024 15:34 REKHA BURKETT [facility]
--- OUTSIDE RECORDS SUMMARY | 2024-11-18 10:41 | XMS_ITS ---
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 Role Phone KOLE GARY Primary Care [...] Patient's Relationship to Policy Wiseman AUNG GOLD [facility] (WNR) MEDICARE ADVANTAGE [facility] (WNR) Aug 03, 2017 [facility] (WN) [id number] [phone] FR RAE SEPULVEDA PATIENT [employer] [facility] (WNR) MEDICARE ADVANTAGE MCR (WNR) December 01, 2022 [id number] [phone] FR RAE SEPULVEDA PATIENT [employer] [facility] (WNR) MEDICARE ADVANTAGE MCR (WNR) December 01, 2022 [id number] [phone] FR RAE SEPULVEDA PATIENT [employer] [facility] (WNR) MEDICARE ADVANTAGE [facility] ( WNR) December 01, 2022 [id number] [phone] FR RAE SEPULVEDA PATIENT [employer] [facility] (WNR) MEDICARE ADVANTAGE [facility] (WNR) Aug 03, 2021 [id number] [phone] FR RAE SEPULVEDA PATIENT [facility] [place] (WNR) MEDICARE ADVANTAGE [facility] (WNR) Aug 03, 2017 [id number] [phone] FR RAE SEPULVEDA PATIENT [facility] [place] (WNR) MEDICARE ADVANTAGE [facility] (WNR) Aug 03, 2017 [id number] [phone] FR RAE SEPULVEDA PATIENT Selected Encounter This section includes the information on record at [place] for the Encounter. Date/Time Encounter Type Encounter Description Reason Provider Source Nov 18, 2024 03:41 PM Inpatient Visit HOSPITALIZATION ICD-10-CM E78.5 Hyperlipidemia, unspecified YOVANI DUNN [facility] Encounter Template Text not used by [place] Assessments - Encounter Diagnoses This section includes the primary and secondary diagnoses documented for the Encounter. Date/Time Primary/Secondary Diagnosis Diagnosis Name Provider Source Nov 19, 2024 01:58 PM Diagnosis for Length of Stay Unilateral primary osteoarthritis, right knee [facility] Nov 19, 2024 01:58 PM SECONDARY Aftercare following joint replacement surgery [facility] Nov 19, 2024 01:58 PM SECONDARY Chronic kidney disease, unspecified [facility] Nov 19, 2024 01:58 PM SECONDARY Essential (primary) hypertension [facility] Nov 19, 2024 01:58 PM SECONDARY Hemiplga following cerebral infrc affecting left nondom side [facility] Nov 19, 2024 01:58 PM SECONDARY Hyperlipidemia, unspecified [facility] Nov 19, 2024 01:58 PM SECONDARY Hypertensive chronic kidney disease w stg 1-4/unsp chr kdny [facility] Nov 19, 2024 01:58 PM SECONDARY Non-Hodgkin lymphoma, unspecified, unspecified site [facility] Nov 19, 2024 01:58 PM SECONDARY Post-traumatic stress disorder, unspecified [facility] Nov 19, 2024 01:58 PM SECONDARY Presence of right artificial knee joint [facility] Nov 19, 2024 01:58 PM SECONDARY Sleep apnea, unspecified [facility] Plan of Treatment: Future Appointments (+ 6 months) and Future Tests (+/- 45 days) The Plan of Treatment section includes future care activities for the patient [facility] [place] [facility] [place] This section includes future appointments and future orders which are active, pending or scheduled. Future Appointments This section includes appointments that were scheduled to occur 6 months from the date of the Encounter, up to a maximum of 20 appointments. The data comes from all [facility]. Appointment Date/Time Appointment Type Appointme nt Facility Name Nov 20, 2024 08:00 AM AMBULATORY - NONE [facility] Nov 21, 2024 09:30 AM AMBULATORY - MEDICINE [facility] Nov 28, 2024 09:30 AM AMBULATORY - MEDICINE [facility] Nov 30, 2024 10:00 AM AMBULATORY - MEDICINE [facility] December 05, 2024 09:30 AM AMBULATORY - MEDICINE [facility] December 12, 2024 09:30 AM AMBULATORY - MEDICINE [facility] December 12, 2024 02:00 PM AMBULATORY - REHAB MEDICIN E [facility] December 13, 2024 11:00 AM AMBULATORY - SURGERY [facility] December 14, 2024 10:00 AM AMBULATORY - SURGERY [facility] December 19, 2024 09:30 AM AMBULATORY - MEDICINE [facility] December 19, 2024 11:00 AM AMBULATORY - REHAB MEDICIN [facility] December 28, 2024 02:45 PM AMBULATORY - MEDICINE [facility] Jan 02, 2025 10:30 AM AMBULATORY - REHAB MEDICIN E [facility] Jan 09, 2025 09:30 AM AMBULATORY - MEDICINE [facility] Jan 09, 2025 10:30 AM AMBULATORY - NONE [facility] Jan 10, 2025 09:00 AM AMBULATORY - MEDICINE [facility] Jan 11, 2025 02:00 PM AMBULATORY - REHAB MEDICIN E [facility] Jan 16, 2025 09:30 AM AMBULATORY - MEDICINE [facility] Jan 18, 2025 09:30 AM AMBULATORY - REHAB MEDICIN E [facility] Jan 18, 2025 10:30 AM AMBULATORY - SURGERY Rocky KUMAR [facility] Active, Pending, and Scheduled Orders This section includes a listing of several types of active, pending, and scheduled orders, including clinic medications orders, diagnostic test orders, procedure orders and consult orders; where the start date of the order is 45 days before the date of the Encounter or 45 days after the date of theEncounter. The data comes from all [place] treatment facilities. Test Date/Time Test Type Test Details Facility Name Oct 27, 2024 12:00 AM Laboratory - Blood Bank Order TYPE & SCREEN - LAB BLOOD SP [facility] Nov 18, 2024 06:00 AM Laboratory - Blood Bank Order TYPE & SCREEN - LAB BLOOD STAT WC [facility] Lab Results: +/- 30 days of [...] Type Comment Nov 19, 2024 02:24 PM [facility] BASIC METABOLIC PANEL PLASMA Specimen Type: PLASMA Comment: No hemolysis noted. Ordering Provider: BESSY HOYT Report Released Date/Time: Nov 19, 2024 06:00 AM Reporting Lab: [address] [address] Performing Lab: [address] [address] CREATININE 1.16 mg/dL 0.7-1.3 UREA NITROGEN 21.3 mg/dL 9.0-25.0 GLUCOSE 101 mg/dL H 72-99 SODIUM 133 meq/L L 136-145 POTASSIUM 4.4 meq/L 3.5-5 CHLORIDE 100 meq/L 98-107 CARBON DIOXIDE 21 meq/L L 22-31 CALCIUM 9.4 mg/dL 8.4-10.4 EGFR (CKD-EPI 2020) 64.5 >60 Nov 19, 2024 11:54 AM [facility] BASIC METABOLIC PANEL PLASMA Specimen Type: PL ASMA Comment: No hemolysis noted. Ordering Provider: [facility] Report Released Date/Time: Nov 19, 2024 11:44 AM Reporting Lab: [address] [address] Performing Lab: [address] [address] CREATININE 1.15 mg/dL 0.7-1.3 UREA NITROGEN 23.4 mg/dL 9.0-25.0 GLUCOSE 107 mg/dL H 72-99 SODIUM 132 meq/L L 136-145 POTASSIUM 4.1 meq/L 3.5-5 CHLORIDE 101 meq/L 98-107 CARBON DIOXIDE 23 meq/L 22-31 CALCIUM 9.2 mg/dL 8.4-10.4 EGFR (CKD-EPI 2020) 65.1 >60 Nov 19, 2024 11:54 AM [facility] CBC BLOOD Specimen Type: BLOOD Comment: SCAN OF SLIDE AGREES WITH AUTOMATED DIFF Ordering Provider: [facility] Report Released Date/Time: Nov 19, 2024 11:44 AM Reporting Lab: [facility] [address] [place] [phone] Performing Lab: [address] [address] WBC 11.2 10*3/uL 3.6-11.2 RBC 3.49 10*6/uL [...] 0.00-0. 20 Nov 18, 2024 06:00 PM [facility] MRSA SURVL NARES DNA NARES Specimen [...] 18, 2024 03:43 PM Reporting Lab: [address] [address] Performing Lab: [address] [address] MRSA SURVL NARES DNA Negative Negative Nov 16, 2024 08:28 AM [facility] [address] TSH W/ REFLEX FT4 (STL) PLASMA Specimen Type: PLASMA No comment entered. Ordering Provider: ALONDRA BRYANT Report Released Date/Time: Nov 01, 2024 04:02 PM Reporting Lab: [address] [address] Performing Lab: [address] [address] TSH 1.991 u[IU]/mL 0.47-5 Nov 16, 2024 08:28 AM [facility] [address] BASIC METABOLIC PANEL PLASMA Specimen Type: PL ASMA Comment: No hemolysis noted. Ordering Provider: ALONDRA BRYANT Report Released Date/Time: Nov 01, 2024 04:02 PM Reporting Lab: [address] [address] Performing Lab: [address] [address] CREATININE 1.02 mg/dL 0.7-1.3 UREA NITROGEN 14.7 [...] and its performance characteristics confirmed by the [facility] laboratory thru method comparison with reference laboratory and medication chart review. The laboratory is regulated under CLIA as qualified to perform high-complexity testing. Fentanyl is used for clinical purposes in conjunction with other laboratory tests. Ordering Provider: PERFECTO BOLES Report Released Date/Time: Oct 27, 2024 10:25 AM Reporting Lab: [facility] [address] [facility] [address] Performing Lab: [address] [address] ETHANOL <10 mg/dL 0-9 AMPHET/METHAMPHETAMINE Negative ng/mL COCAINE METABOLITES Negative ng/mL BENZODIAZEPINES (STL) Negative ng/mL CANNABINOIDS Negative ng/mL METHADONE Negative ng/mL OPIATES Negative ng/mL CREATININE URINE/OTHERS 68.8 mg/dL 63-16 6 OXYCODONE (EIUJJ-TYQ-CT) Negative ng/mL BUPRENORPHINE (STL-PB-MA) Negative ng/mL FENTANYL (STL) Negative ng/mL Nov 01, 2024 12:05 PM [facility] URINALYSIS (STL-PB) URINE Specimen Type: URIN E No comment entered. Ordering Provider: PERFECTO BOLES Report Released Date/Time: Oct 27, 2024 10:25 AM Reporting Lab: [facility] [address] [facility] [address] Performing Lab: [address] [address] URINE COLOR Light-Yellow Yellow U.BILIRUBIN Negative mg/dL Negative U.PH 6.5 5.0-8.0 APPEARANCE Clear Clear U.NITRITE Negative mg/dL Negative URN.GLUCOSE Normal mg/dL Negative URN.PROTEIN Negative mg/dL URN.UROBILINOGEN Normal mg/dL Normal URN.BLOOD Negative mg/dL Negative-Trace URN.KETONES Negative mg/dL Negative-Trac e URN.LEUK.EST. Negative mg/dL Negative-Tr sweta URN.SPECIFIC GRAVITY 1.012 Nov 01, 2024 12:05 PM [facility] BASIC METABOLIC PANEL PLASMA Specimen Type: PL ASMA Comment: No hemolysis noted. Ordering Provider: ANDER LONGO Report Released Date/Time: Nov 01, 2024 11:45 AM Reporting Lab: [address] [address] Performing Lab: [address] [address] CREATININE 1.03 mg/dL 0.7-1.3 UREA NITROGEN 16.5 mg/dL 9.0-25.0 GLUCOSE 93 mg/dL 72-99 SODIUM 129 meq/L L 136-145 POTASSIUM 3.6 meq/L 3.5-5 CHLORIDE 98 meq/L 98-107 CARBON DIOXIDE 23 meq/L 22-31 CALCIUM 8.7 mg/dL 8.4-10.4 EGFR (CKD-EPI 2020) 74.4 >60 Oct 27, 2024 10:[address] [facility] HGA1C BLOOD Specimen Type: BLOOD No comment entered. Ordering Provider: PERFECTO BOLES Report Released Date/Time: Oct 27, 2024 10:25 AM Reporting Lab: [facility] [address] [facility] [address] Performing Lab: [address] [address] HGA1C 5.9 4.0-6.0 Oct 27, 2024 10:29 AM [facility] VITAMIN D, 25-HYDROXY SERUM Specimen Type: SE RUM No comment entered. Ordering Provider: PERFECTO BOLES Report Released Date/Time: Oct 27, 2024 10:25 AM Reporting Lab: [facility] [address] [facility] [address] Performing Lab: [address] [address] VITAMIN D, 25-HYDROXY 24.1 ng/mL L 30-96 Oct 27, 2024 10:29 AM [facility] PT/INR NEW (STL-MA) PLASMA Specimen Type: PLAS MA No comment entered. Ordering Provider: PERFECTO BOLES Report Released Date/Time: Oct 27, 2024 10:25 AM Reporting Lab: [address] [address] Performing Lab: [address] [address] PROTIME 11.3 s 9.4-12.5 INR VALUE 1.0 {INR} Oct 27, 2024 10:29 AM [facility] COMPREHENSIVE METABOLIC PANEL PLASMA Specimen Type: PLASMA Comment: No hemolysis noted. Ordering Provider: PERFECTO BOLES Report Released Date/Time: Oct 27, 2024 10:25 AM Reporting Lab: [address] [address] Performing Lab: [address] [address] CREATININE 0.99 mg/dL 0.7-1.3 UREA NITROGEN 17.9 [...] 78.0 >60 Oct 27, 2024 10:29 AM [facility] CBC BLOOD Specimen Type: BLOOD No comment entered. Ordering Provider: PERFCETO BLOES Report Released Date/Time: Oct 27, 2024 10:25 AM Reporting Lab: [facility] [address] [facility] [address] Performing Lab: [facility] [address] [facility] [address] WBC 4.8 10*3/uL 3.6-11.2 RBC 4.34 10*6/uL [...] Source Nov 18, 2024 09:19 PM 6 [facility] Nov 18, 2024 08:59 PM 97.2 65 152/76 20 96 0 226 37 [facility] Nov 18, 2024 05:08 PM 0 [facility] Nov 18, 2024 04:20 PM 97.8 59 138/67 18 95 0 [facility] Nov 18, 2024 03:58 PM 97.4 57 134/65 18 94 0 [facility] Advance Directives: All historical and current Section Date Range: From patient's date of to the date document was created. This section includes ALL of a patient's completed or amended [place] Advance and Rescinded Directives. The entries below indicate that a directive exists for the patient, but an actual copy is not included with this document. The data comes from all [place] facilities. Date Advance Directives Provider Source Jun 12, [address] [facility] December 24, 2011 ADVANCE DIRECTIVE DISCUSSION TOMMY VAZQUEZ [facility] Radiology Reports: +/- 30 days of [...] the Encounter. The data comes from all [place] treatment facilities. Date/Time Radiology Report Provider Source Nov 18, 2024 02:12 PM KNEE,RIGHT,1 OR 2 VIEWS: JOYCELYN SEPULVEDA [id number] -1945 M Exm Date: NOV 18, 2024@14:12 Req Phys: YOVANI DUNN [facility] Loc: 5C U OE-[facility]/11-19-2024@07:05 Img Loc: -MAIN RADIOLOGY SUITE Service: [facility], [facility] [address] [place] [address] (Case [id number] COMPLETE) KNEE,RIGHT,1 OR 2 VIEWS (RAD Detailed) CPT:62503 Proc Modifiers : OR, RIGHT, AP & LAT Reason for Study: postop in OR R TKA Clinical History: Do films need to be ortho templated printed? No Report Status: Verified Date Reported: NOV 19, 2024 Date Verified: NOV 19, 2024 Primary Health Organisation Manager E-Sig:/ES/Kuldip Decker MD Report: FINDINGS: Right knee replacement is noted and position appears satisfactory. Impression: Right knee replacement shows satisfactory position. Primary Interpreting Staff: Kuldip Decker MD, Radiologist (Primary Health Organisation Manager) /QMB KULDIP DECKER [facility] Nov 01, 2024 09:58 AM NM MYOCARDIAL P SP ECT STRESS/REST-P: JOYCELYN SEPULVEDA [id number] -1945 M Exm Date: NOV 01, 2024@09:58 Req Phys: SUSANNA HILLS Pat Loc: [facility]CARDIO E-CONSULT (Req'g Loc Img Loc: [facility]-NUCLEAR MEDICINE Service: Unknown [facility], [facility] [address] [place] [address] (Case [id number] COMPLETE) NM MYOCARDIAL PERF SPECT STRESS/R(NM Detailed) CPT:16149 Reason for Study: Pre-op Assessment' (Case 1429 COMPLETE) TC-99M TETROFOSMIN (MYOVIEW) (NM Detailed) CPT:A9502 (Case 1430 COMPLETE) TC-99M TETROFOSMIN (MYOVIEW), PE(NM Detailed) CPT:A9502 (Case 1431 COMPLETE) NON-HEU TC-99M ADD-ON PER STUDY D(NM Detailed) CPT:Q9969 (Case 1737 COMPLETE) REGADENOSON INJECTION (NM Detailed) CPT:J2785 Clinical History: Pre-op Assessment Report Status: Verified Date Reported: NOV 01, 2024 Date Verified: NOV 01, 2024 Primary Health Organisation Manager E-Sig:/ES/Bon Castro MD,PhD Report: PATIENT NAME: JOYCELYN SEPULEVDA CASE #: [id number], [id number], [id number], [id number] EXAMINATION: Rest/Lexiscan Stress Gated SPECT Myocardial Imaging [...] Staff: Bon Castro MD,PhD, Nuclear Medicine Physician (Primary Health Organisation Manager) Primary Interpreting Resident: RADHA PROCTOR MD /BON Ruelas [facility] Pathology Reports: +/- 30 days of [...] the Encounter. The data comes from all [place] treatment facilities. Date/Time Pathology Report Provider Source [...] - - - - - GROSS DESCRIPTION: (N.Di, 11-18-2024) The specimen is received without fixative, [...] x 3.0 cm for soft tissue fragments. Principal Web Developer sections are submitted, following decalcification in RDO, in two cassettes A1-A2 MICROSCOPIC EXAM: ([place]) Microscopic examination of the sections submitted from right knee bone shows variable loss of articular cartilage with fibrillation and splitting. DIAGNOSIS: RIGHT KNEE BONE, RIGHT TOTAL KNEE ARTHROPLASTY: DEGENERATIVE CHANGES /brianda/ STUART RIVERS Pathologist Signed Nov 22, 2024@12:56 Performing Laboratory: Surgical Pathology Report Performed By: [address] CLIA# [id number] [address] [place] [id number] $FTR - - - - - - - - - - - - - - - - - - - - - - - - - - - - - - - - - - - - - - - - (End of report) STUART RIVERS MD [facility] Date Nov 22, 2024 - - - - - - - - - - - - - - - - - - - - - - - - - - - - - - - - - - - - - - - - JOYCELYN SEPULVEDA STANDARD FORM 515 ID:[id number] SEX:M :1945 AGE: 78 LOC:APFEE PCP: Alondra Bryant /brianda/ STUART RIVERS Pathologist Signed: 11/22/2024 12:56 STUART RIVERS [facility] Encounter Notes: All associated encounter notes This section contains the clinical notes associated to the Encounter. Date/Time Encounter Note(s) Provider Source Nov 19, 2024 01:58 PM DISCHARGE SUMMARY: LOCAL TITLE: DISCHARGE OBSERVATION SURGERY [facility] STANDARD TITLE: DISCHARGE SUMMARY DICT DATE: NOV 19, 2024@07:29 ENTRY DATE: NOV 19, 2024@07:29:36 DICTATED BY: BESSY HOYT ATTENDING: [facility] URGENCY: routine STATUS: COMPLETED DISCHARGE OBSERVATION SURGERY [facility] DIAGNOSES: Other: Post R TKA Complications: n/a Comorbidities: HTN, CKD, L sided stroke, lymphoma Reason for Observation Admission: post-op therapy Outcome: stable DISCHARGE MEDICATIONS: TO HELP YOU UNDERSTAND YOUR DRUG LIST ACTIVE means that you are presently taking these meds PENDING means that the medications have just been renewed or just ordered. HOLD means that the medications are on your list but will not be sent to you unless you or your doctor wants them taken off hold. NON-VA means you are getting the medication from somewhere besides the [place]. Active Outpatient Medications (including Supplies): Active Outpatient [...] DAY ACTIVE Indication: FOR ALLERGY SYMPTOMS 5) CHLORHEXIDINE GLUCONATE 4% TOP LIQUID APPLY SMALL AMOUNT TO ACTIVE AFFECTED AREA(S) DIRECTED (TOPICAL USE ONLY) AVOID CONTACT WITH EYES. STARTING 5 DAYS BEFORE SURGERY, WASH WITH WASH IN THE SHOWER FROM THE NECK DOWN. REPEAT DAILY AND THE MORNING OF SURGERY BEFORE ARRIVING AT THE HOSPITAL.. DAY OF SURGERY: REPEAT BEFORE ARRIVING TO THE HOSPITAL. Indication: FOR SKIN DISINFECTION 6) CYCLOBENZAPRINE HCL 10MG TAB TAKE ONE TABLET BY MOUTH THREE ACTIVE TIMES A DAY NEEDED MAY CAUSE DROWSINESS. DO NOT DRINK ALCOHOL WHILE TAKING THIS MEDICATION. Indication: FOR MUSCLE SPASM 7) DULOXETINE HCL 30MG EC CAP TAKE THREE CAPSULES BY MOUTH ONCE ACTIVE A DAY DO NOT ABRUPTLY DISCONTINUE MEDICATION. Indication: FOR DEPRESSION 8) ERGOCALCIF 1,250MCG (D2-50,000UNIT) CAP TAKE ONE CAPSULE BY ACTIVE MOUTH EVERY WEEK Indication: FOR VITAMIN D DEFICIENCY 9) FINASTERIDE 5MG TAB TAKE ONE TABLET BY MOUTH ONCE A DAY ACTIVE SWALLOW WHOLE, DO NOT CRUSH, SPLIT, OR CHEW. Indication: FOR BENIGN PROSTATIC HYPERPLASIA 10) FLUTICASONE PROP 50MCG 120D NASAL INHL INSTILL 2 SPRAYS IN ACTIVE NOSTRIL(S) ONCE A DAY (MUST BE USED DIRECTED FOR MINIMUM OF 21 DAYS TO PROVIDE ADEQUATE BENEFITS) Indication: FOR RHINITIS 11) HYDROCHLOROTHIAZIDE 25MG TAB TAKE ONE TABLET BY MOUTH ONCE A ACTIVE DAY Indication: FOR HIGH BLOOD PRESSURE 12) LISINOPRIL 20MG TAB TAKE ONE TABLET BY MOUTH ONCE A DAY ACTIVE Indication: FOR HIGH BLOOD PRESSURE 13) MUPIROCIN 2% OINT APPLY SPARINGLY TO AFFECTED AREA(S) TWICE ACTIVE A DAY EXTERNAL USE ONLY. APPLY TO EACH NOSTRIL TWICE EVERY DAY (USE SEPARATE COTTON TIP FOR EACH NOSTRIL ONCE IN THE MORNING AND ONCE IN THE EVENING) FOR (5) DAYS LEADING UP TO YOUR SURGERY. THEN APPLY IT ONE TIME ON THE MORNING OF SURGERY. Indication: surgical indication 14) SODIUM FLUORIDE 1.1% TOOTHPASTE USE DIRECTED BY MOUTH ACTIVE TWICE A DAY TOOTHPASTE (DO NOT SWALLOW) APPLY A PEA-SIZED AMOUNT OF THE PASTE TO A TOOTHBRUSH AND BRUSH THOROUGHLY FOR TWO MINUTES, AT MORNING AND AT NIGHT; SPIT, DO NOT RINSE. DO NOT EAT, DRINK, OR RINSE FOR 30 MINUTES AFTER USE. Indication: FOR DENTAL CARIES 15) SUNSCREEN 30-50/PHY BLOCK/PABA-F LOTION APPLY LIBERALLY TO ACTIVE AFFECTED AREA(S) DIRECTED (EXTERNAL USE ONLY) Indication: FOR SKIN PROTECTION 16) TAMSULOSIN HCL 0.4MG CAP TAKE ONE CAPSULE BY MOUTH EVERY ACTIVE EVENING APPROXIMATELY 30 MINUTES AFTER THE SAME MEAL EACH DAY Indication: FOR BENIGN PROSTATIC HYPERPLASIA 17) TRAZODONE HCL 50MG TAB TAKE ONE-HALF TABLET BY MOUTH AT ACTIVE BEDTIME Indication: FOR SLEEP Pending Outpatient Medications Status 1) ACETAMINOPHEN 325MG TAB TAKE TWO TABLETS BY MOUTH EVERY 6 PENDING HOURS CAUTION: DO NOT EXCEED 4000MG PER DAY ACETAMINOPHEN (APAP) FROM ALL MEDS. Indication: FOR PAIN 2) ASPIRIN 81MG EC TAB TAKE ONE TABLET BY MOUTH TWICE A DAY PENDING TAKE WITH FOOD. Indication: FOR CARDIOVASCULAR DISEASE 3) CYCLOBENZAPRINE HCL 5MG TAB TAKE ONE TABLET BY MOUTH THREE PENDING TIMES A DAY NEEDED MAY CAUSE DROWSINESS. DO NOT DRINK ALCOHOL WHILE TAKING THIS MEDICATION. Indication: FOR MUSCLE SPASM 4) DOCUSATE NA 50MG/SENNOSIDES 8.6MG TAB TAKE 1 TABLET BY MOUTH PENDING TWICE DAILY NEEDED HOLD FOR LOOSE STOOL/DIARRHEA. Indication: FOR SOFTENING STOOL 5) MELOXICAM 7.5MG TAB TAKE ONE TABLET BY MOUTH ONCE A DAY PENDING Indication: FOR OSTEOARTHRITIS 6) OXYCODONE HCL 5MG TAB TAKE ONE TABLET BY MOUTH EVERY 4 HOURS PENDING NEEDED MAY CAUSE CONSTIPATION Indication: FOR POST-OPERATIVE PAIN 7) TRAMADOL HCL 50MG TAB TAKE 1 TABLET BY MOUTH FOUR TIMES A PENDING DAY NEEDED Indication: FOR PAIN 24 Total Medications - Please take only those medications on the above list. - At your next appointment, please remember to bring all of your medication bottles with you. Please include any vitamins, herbal supplements & over the counter medications. - If you have any further questions regarding your medications, please call your primary care clinic or if after hours, please call and ask alarm signal operator to connect to Nurse Talk. NEW MEDICATIONS (and indications): * Aspirin 81 mg orally twice a day for 30 days for blood clot prevention * Tylenol 325mg 2 tabs orally every 6 hours for pain * Tramadol 50mg 1 tab orally every 6 hours as need for pain (1st line as needed medication) * Oxycodone 5mg 1 tab orally every 4 hours as needed for pain (2nd line as needed medication) * Docusate 50mg/Senna 8.6mg 1 tab orally twice per day for constipation while on narcotics * Meloxicam 7.5mg 1 tab orally once per day for pain * Cyclobenzaprine 5mg 1 tab orally three times per day as needed for muscle spasms The following changes were made to the medications you were taking prior to this hospitalization: n/a These medications have been stopped during your hospitalization (and reason why): n/a At your next appointment, please remember to bring all of your medication bottles with you Medication Reconciliation: I have discussed active and pending medications with the patient and/or customer care professional. I have made changes as appropriate.................. .YES DISCHARGE DIETARY INSTRUCTIONS: Your current weight is: 224 lb [101.60 kg] (11/19/2024 05:45) No Dietary Instructions, Restrictions (specify below including drug and food interactions) return to home diet If you have questions, contact the dietitians at . DISCHARGE PHYSICAL ACTIVITY INSTRUCTIONS: Activity as tolerated WOUND MANAGEMENT: WOUND MANAGEMENT: PRINEO DRESSING * Your incision is closed with Prineo (a clear liquid sealant and mesh) that will remain on your incision for 21 days after surgery. Leave your incision/Prineo open to air. During your first home health visit the nurse will evaluate your incision to ensure it is sealed and perform return demonstration regarding wound care management and removal of Prineo. DO NOT SCRATCH, RUB, SCRUB OR PICK AT THE PRINEO-- this could cause it to loosen or come off before your incision is healed. * You may shower starting 3 days after surgery, allowing the water to rinse over the Prineo and PAT to dry. * The patient will remove mesh 21 days after surgery- gently pull the mesh down from the top of your incision. * If you notice the Prineo beginning to loosen or coming off, contact your surgeons nurse for further instructions. * Do NOT submerge your incision (in a tub, hot tub, pool, her, river, etc.) until it is healed and your surgeon says its ok. Do NOT use lotion, oil, alcohol or cream on your incision. SWELLING PREVENTION * Apply ice to your knee up to 20 minutes an hour, as needed, while awake especially after therapy and home exercises. Do NOT apply the ice directly to your skin. * Elevate your operative leg, keeping your toes higher than your knee and your knee higher than you heart. Use pillows (lengthwise) to create a ramp that will support your entire leg and keep your knee as straight as possible. Try to do this position for 40 minutes about 3 times a day. * DO NOT REST your operative leg on the floor longer than 30 minutes at a time. * Always put your heel up on another chair/ottoman. Take frequent short walks around your home/room daily to help decrease the swelling. * Use your Incentive Spirometer 10 deep breaths every hour while awake. * Do NOT submerge your incision (in a tub, hot tub, pool, her, river, etc.) until it is healed and your surgeon says its ok. Do NOT use lotion, oil, alcohol or cream on your incision. TOBACCO CESSATION EDUCATION/COUNSELING: The patient states he/she is not a tobacco user. WORSENING and/or DANGEROUS SYMPTOMS TO REPORT (Phys. entry required): If you experience ANY of the symptoms below, CONTACT Erin Hollis Orthopedic Fiber Optic Assembly Worker [phone] extension [phone] right away. Fevers greater than 101.6 degrees F on 2 or more measurements Drainage Wound appearance changes Bleeding Redness Swelling Shortness of breath Chest pain Contact your Primary Care Physician Thursday through Thursday 8:00a.m. - 4:00p.m. After normal business hours the [place] Telephone Care Program is available (Thursday through Thursday 4p.m. to 8a.m.; Weekends and Holidays) at [phone] ext. [phone]. DISCHARGE INTRUCTIONAL MATERIALS *To be printed by Nurse and provided to patient Other (specify below) post TKA FUTURE APPOINTMENT(S): To reschedule [facility] appointments call and use extension below. Date/time Clinic Phone number 11/20/24 8:00 am [facility] [id number] 11/21/24 9:30 am [facility] [phone] 11/28/24 9:30 am [facility] [phone] 12/02/24 8:30 am [facility] PA JEANA [phone] 12/05/24 9:30 am [facility] [phone] 12/12/24 9:30 am [facility] [phone] 12/13/24 11:00 am [facility]AUDIO 4 NB [phone] 12/14/24 10:00 am [facility]ORTH[facility] DE IONIZER OPERATOR WEHKING [phone] 12/19/24 9:30 am [facility] [phone] 12/19/24 11:00 am [facility]PHYSICAL THERAPY CONS [phone] 01/02/25 9:30 am [facility] [phone] 01/09/25 9:30 am [facility] [phone] 01/10/25 9:00 am [facility]ON[facility] GABY JULIA [phone] 01/16/25 9:30 am [facility] [phone] 01/23/25 9:30 am [facility] [phone] 01/30/25 10:00 am [facility]OPTOMETRY 02/13/25 10:30 am [facility]ST CLR PACT 7 PCP [phone] 02/21/25 1:00 pm [facility] SLEEP DE IONIZER OPERATOR 02/23/25 10:00 am [facility]ORTHO RECONSTRUCTION [phone] 04/12/25 12:00 pm [facility]DENTAL HYG Follow-up with your Primary Care Physician: ALONDRA BRYANT in 1 month *This listing may be incomplete. CONDITION OF PATIENT AT DISCHARGE: stable Time Spent: 11-[address] OF DISPOSITION: home OTHER (Include employment status): N/A NOTE: If you are having feelings of Depression or Emotional Distress, or feel you just need to talk with someone, please call PRESS 1. Verified By MRT/DUNIA /brianda/ BESSY HOYT MD Resident Physician, Orthopedics Signed: 11/21/2024 10:09 /brianda/ JEFFERSON Velasquez VITAL JOINT RECONSTRUCTIVE SURGERY Cosigned: 11/21/2024 19:06 BESSY HOYT [facility] Nov 19, 2024 12:52 PM NURSING INPATIENT NOTE: LOCAL TITLE: [facility] NURSING FREQUENT DOCUMENTATION STANDARD TITLE: NURSING INPATIENT NOTE DATE OF NOTE: NOV 19, 2024@12:52 ENTRY DATE: NOV 19, 2024@12:52:42 AUTHOR: JANESSA TRAN EXP COSIGNER: URGENCY: STATUS: COMPLETED Version 2.4 Charting in accordance with [facility] [place] STANDARD ([facility] ACUTE INPATIENT/REHABILITATION NURSING ADMISSION SCREENING, ASSESSMENT, AND STANDARDS OF CARE ===== ORAL INTAKE (PERCENTAGE OF MEAL EATEN) ===== Lunch: 76% - 100% /brianda/ PRAVEEN CARTER ORE BUYER Signed: 11/19/2024 12:52 JANESSA TRAN [facility] Nov 19, 2024 10:50 AM NURSING TRANSFER SUMMARIZATION DISCHARGE NOTE: LOCAL TITLE: [facility] DISCHARGE/TRANSFER SUMMARY ST[facility] STANDARD TITLE: NURSING TRANSFER SUMMARIZATION DISCHARGE NOTE DATE OF NOTE: NOV 19, 2024@10:50 ENTRY DATE: NOV 19, 2024@10:50:13 AUTHOR: LUIS RAMIREZ EXP COSIGNER: URGENCY: STATUS: COMPLETED DISCHARGE - TRANSFER SUMMARY Action: Discharge Diagnosis: Last Admission: 11/18/24 3:41:18 pm Admit Dx: R TKA Age: 78 Allergies: Patient has answered NKA Patient Condition: Stable Vital Signs: Temperature: Unavailable (11/19/2024 09:35) Pulse: 73 (11/19/2024 09:35) Respiration: 18 (11/19/2024 09:35) Blood Pressure: 138/57 (11/19/2024 09:35) Pain: 5 (11/19/2024 10:40) Fall Risk Assessment Score: 55 Fall Risk Level: High Risk = SUICIDE SCREEN = Result of C-SSRS screener done was NEGATIVE. C-SSRS Screen is Negative LEVEL OF LIFT REQUIRED: No assistance Safe Patient Handling - Patient Mobility Assessment Tool Isolation: No Precautions: Fall Orientation: x3 Hygiene: Assist Nutrition: Regular diet Special needs: Assistance: Independent Bowel/Bladder: Date of last bowel movement: Nov Defecation: Normal Able to void: YES Continent: YES Catheter: No Wound / Skin Condition: Assessment Type: SKIN REINSPECTION/REASSESSMENT SKIN INSPECTION: Skin Color: Usual for ethnicity Skin Temperature: Warm Skin Moisture: Normal Skin Turgor: Elastic (normal/immediate) Jes Skin Assessment: The patient's Jse Scale Score is 20. The patient is considered not at risk for development of pressure ulcers/injuries. Sensory perception -- ability to respond meaningfully to pressure-related discomfort No impairment. Moisture -- degree to which skin is exposed to moisture Rarely moist. Activity -- ability to change and control body position Walks occasionally. Mobility -- ability to change and control body position Slightly limited. Nutrition -- usual food intake patterns Adequate. Friction and shear No apparent problem. INTERVENTIONS: No change in previous interventions as listed below Pressure Ulcer-Moisture 11/18/2024 Maintain Clean Dry Skin Offer Bedpan/Urinal Protective Barrier Ointment Pressure Ulcer-Pressure Reducing 11/18/2024 Elevate Heels Frequent Position Changes Pressure Ulcer-Remobilize 11/18/2024 Encourage Activity As Tolerated RISK FACTORS THAT INCREASE RISK FOR DEVELOPING PRESSURE INJURIES: The patient/resident has the following: Age over 75 SKIN ALTERATIONS: Pressure Ulcer/Injury Documentation from the past year: No data available SKIN ALTERATIONS: Wound Documentation from the past year: Skin Assessment 11/18/2024 Skin Integrity - Wound right total knee arthroplasty/ dressing c/d/i,,sweta wrapped, cooling blan, on knee, bilateral scd's STANDARD OF CARE / PRACTICE IMPLEMENTED: Indicate status at Discharge/Transfer: Stabilized Flu Shot Given: No Patient refused Pneumococcal Shot Given: No Patient refused MRSA Discharge Swab Done: No Reason: policy Discharged/Transfered to: Own home without home care services Accompanied by (Name & Relationship): Next of Kin notified: YES Discharge/Transfer Mode: Wheelchair Discharged/Transferred with: Written Discharge Instructions Medications Return Appointments The [place] was informed of the date and time of his/her follow-up mental health appointments: YES The [place] was provided the opportunity to cancel or change his/her scheduled follow-up mental health appointments: YES The was educated about what to do and who to contact should he/she need to cancel the follow-up mental health appointment: YES Clothing / Valuables returned: Yes Describe: packed belongings Prosthetics with patient: Dentures/Partials with patient: None Glasses with patient: NA Other: NA Printed MD Instruction sheet with medication list reviewed and given to the patient/caregiver. Patient/Caregiver verifies medication list is complete and accurate. /brianda/ LUIS RAMIREZ RN Registered Nurse Signed: 11/19/2024 10:55 LIUS RAMIREZ [facility] Nov 19, 2024 10:46 AM NURSING INPATIENT NOTE: LOCAL TITLE: [facility] NURSING FREQUENT DOCUMENTATION STANDARD TITLE: NURSING INPATIENT NOTE DATE OF NOTE: NOV 19, 2024@10:46 ENTRY DATE: NOV 19, 2024@10:46:48 AUTHOR: JANESSA TRAN EXP COSIGNER: URGENCY: STATUS: COMPLETED Version 2.4 Charting in accordance with [place]ANDARD ([facility]) ACUTE INPATIENT/REHABILITATION NURSING ADMISSION SCREENING, ASSESSMENT, AND STANDARDS OF CARE ==== PROVIDER NOTIFICATION ==== Provider Name: Luis Ramirez RN Notification Reason: Other: Took pt Iv out of right forearm /es/ PRAVEEN CARTER ORE BUYER Signed: 11/19/2024 10:[address] [facility] Nov 19, 2024 10:39 AM NURSING INPATIENT NOTE: LOCAL TITLE: [facility] ACUTE INPATIENT NSG SHIFT ASSESSMENT STANDARD TITLE: NURSING INPATIENT NOTE DATE OF NOTE: NOV 19, 2024@10:39 ENTRY DATE: NOV 19, 2024@10:39:55 AUTHOR: LUIS RAMIREZ COSIGNER: URGENCY: STATUS: COMPLETED Version 2.2 Charting in accordance with [facility] STANDARD ([facility]) ACUTE INPATIENT/REHABILITATION NURSING ADMISSION SCREENING, ASSESSMENT, AND STANDARDS OF CARE ==== ASSESSMENT ==== ==== HANDOFF ==== Bedside report and handoff completed Safety check completed ==== PAIN ASSESSMENT ==== Patient's acceptable pain goal: 0 No pain Are you currently experiencing pain? Yes - DVPRS scale used to assess Location: right knee Defense and Veterans Pain Rating Scale (DVPRS): Pain Score: 5 ==== BREAUX FALL SCALE & TIPS PROGRAM ==== Breaux Fall Scale: The Breaux Fall scale was performed and score was 70. This is indicative of high risk for falls. History of falling: immediate or within 3 months? No Secondary diagnosis: Yes Ambulatory aid: Crutches/cane(s)/walker Intravenous therapy/Heparin lock: Yes Gait/Transferring: Impaired Mental Status: Oriented to own ability/knows own limitations Fall Tailoring Interventions for Patient Safety (TIPS) Fall TIPS initiated with patient: Yes Interventions: Communicate recent fall or risk of harm Fall TIPS reviewed with patient: Yes Interventions: Communicate recent fall or risk of harm ==== ENVIRONMENTAL SAFETY MANAGEMENT ==== Implemented safety standards of care: -[place] to unit & environment -Adequate room lighting -Bed in low and locked position -Call light within reach -Personal items within reach -Traffic path in room free of clutter -Non-slip footwear -Upper/half length side rails up for bed mobility -Sensory aids within reach -Encourage patient to utilize sensory support Additional safety measures: Close to nurses station Increased frequency of rounding ==== NEUROLOGICAL ==== Neurological Orientation: Oriented x4 Level of Consciousness (AVPU): Alert = Appears aware of and responsive to the environment on their own. Follows commands, opens eyes spontaneously, and tracks objects. ==== NEUROMUSCULAR/NEUROVASCULAR EXTREMITIES ASSESSMENT ==== Strength: Concept Artist Bilateral: Strong Upper Extremity Bilateral: Full strength Lower Extremity Bilateral: Unequal Lower Extremity Strength: Right: Moves against some resistance Left: Moves against some resistance Left CVA... Right total knee 11/17/24 Sensation: Upper Extremity Sensation Bilateral: Intact Lower Extremity Sensation Bilateral: Intact Temperature: Upper Extremity Temperature Bilateral: Warm Lower Extremity Temperature Bilateral: Warm ==== CARDIOVASCULAR ==== Heart Sounds: Normal (S1S2) Heart Rate/Rhythm (without lunchroom monitor): Regular Capillary Refill: All 4 extremities, less than or equal to 3 seconds. Peripheral Pulses: All 4 extremities, 3+ normal. Edema: None ==== RESPIRATORY ==== Respirations: Unlabored Pattern: Regular Breath Sounds Auscultated: Anterior and posterior Left Upper Lobe: Clear Right Upper Lobe: Clear Right Middle Lobe: Clear Left Lower Lobe: Clear Right Lower Lobe: Clear ==== GASTROINTESTINAL ==== Passing flatus Elimination: Continent Abdominal Description: Rounded Palpation: Soft, Non-tender Bowel Sounds: RUQ: Active LUQ: Active RLQ: Active LLQ: Active ==== GENITOURINARY ==== Elimination: Continent === INTEGUMENTARY/SKIN/WOUND - (INCLUDING JES) SEE NOTE: VAAES SKIN INPECTION/ASSESSMENT === ==== ACTIVITIES OF DAILY LIVING ==== Hygiene ADLs: Hand Hygiene: Performed post toileting Performed pre meals/snacks Oral Care: Non-ventilator patient: Patient teeth brushed: Independently The was educated that poor oral hygiene increases the risk of hospital acquired pneumonia and dental problems like gingivitis and tooth decay. was educated using their preferred method and verbalized understanding. Oral Mucositis Scale: Oral mucositis (clinical exam): Grade 1 = Erythema of the mucosa Oral mucositis (functional/symptomatic): Grade 1 = Minimal symptoms, normal diet ==== MOBILITY ==== Mobility Status: Minimum assist: Stands with support only (Unsteady or requires verbal cueing) Unable to march and step independently Equipment utilized: Walker Gait: Steady Gait: Wide base ==== IV LINES ==== Peripheral IV: Line #1: Discontinue: Location: Right, Forearm Date/Time: Nov Reason for discontinuation: Therapy complete ==== PSYCHOSOCIAL ==== Type of Emotional Support Provided: 1:1 discussion, Ventilation of feelings encouraged /es/ LUIS RAMIREZ RN Registered Nurse Signed: 11/19/2024 10:[address] [facility] Nov 19, 2024 09:36 AM NURSING INPATIENT NOTE: LOCAL TITLE: [facility] NURSING FREQUENT DOCUMENTATION STANDARD TITLE: NURSING INPATIENT NOTE DATE OF NOTE: NOV 19, 2024@09:36 ENTRY DATE: NOV 19, 2024@09:36:53 AUTHOR: JANESSA TRAN EXP COSIGNER: URGENCY: STATUS: COMPLETED Version 2.4 Charting in accordance with [place]ANDARD ([facility]) ACUTE INPATIENT/REHABILITATION NURSING ADMISSION SCREENING, ASSESSMENT, AND STANDARDS OF CARE ===== ORAL INTAKE (PERCENTAGE OF MEAL EATEN) ===== Breakfast: 76% - 100% /es/ PRAVEEN CARTER ORE BUYER Signed: 11/19/2024 09:37 JANESSA TRAN [facility] Nov 19, 2024 07:52 AM NURSING INPATIENT NOTE: [facility]AL [facility] ACUTE INPATIENT NSG SHIFT ASSESSMENT STANDARD TITLE: NURSING INPATIENT NOTE DATE OF NOTE: NOV 19, 2024@07:52 ENTRY DATE: NOV 19, 2024@07:52:33 AUTHOR: NATHANIEL LAWSON EXP COSIGNER: URGENCY: STATUS: COMPLETED Version 2.2 Charting in accordance with [place] STANDARD ([place]) ACUTE INPATIENT/REHABILITATION NURSING ADMISSION SCREENING, ASSESSMENT, AND STANDARDS OF CARE ==== REASSESSMENT ==== ==== PAIN ASSESSMENT ==== Patient's acceptable pain goal: 2 Notice pain, does not interfere with activities Are you currently experiencing pain? Yes - DVPRS scale used to assess Location: right knee Defense and Veterans Pain Rating Scale (DVPRS): 5 Interrupts some activities Pain Score: 6 ==== NEUROLOGICAL ==== Neurological Orientation: Oriented x4 Level of Consciousness (AVPU): ==== NEUROMUSCULAR/NEUROVASCULAR EXTREMITIES ASSESSMENT ==== Strength: Concept Artist Bilateral: Strong Upper Extremity Bilateral: Lower Extremity Bilateral: Full strength ==== CARDIOVASCULAR ==== Capillary Refill: All 4 extremities, less than or equal to 3 seconds. Edema: None ==== RESPIRATORY ==== Respirations: Unlabored Pattern: Regular Breath Sounds Auscultated: Anterior and posterior Left Upper Lobe: Clear Right Upper Lobe: Clear Right Middle Lobe: Clear Left Lower Lobe: Clear Right Lower Lobe: Clear ==== GASTROINTESTINAL ==== Palpation: Soft Bowel Sounds: === INTEGUMENTARY/SKIN/WOUND - (INCLUDING JES) SEE NOTE: VAAES SKIN INPECTION/ASSESSMENT === /brianda/ NATHANIEL FELIX RN REGISTERED NURSE Signed: 11/19/2024 08:06 NATHANIEL LAWSON Jun [facility] Nov 19, 2024 07:42 AM NURSING NOTE: LOCAL TITLE: VAS SKIN INSPECTION/ASSESSMENT STANDARD TITLE: NURSING NOTE DATE OF NOTE: NOV 19, 2024@07:42 ENTRY DATE: NOV 19, 2024@07:42:11 AUTHOR: NATHANIEL LAWSON EXP COSIGNER: URGENCY: STATUS: COMPLETED SKIN/WOUND DRESSING: Location(s): right knee drsg and wrap Clean Dry /brianda/ NATHANIEL FELIX RN REGISTERED NURSE Signed: 11/19/2024 07:45 NATHANIEL LAWSON [facility] Nov 19, 2024 07:18 AM PHYSICIAN EDUCATION DISCHARGE NOTE: LOCAL TITLE: DISCHARGE INSTRUCTIONS STL STANDARD TITLE: PHYSICIAN EDUCATION DISCHARGE NOTE DATE OF NOTE: NOV 19, 2024@07:18 ENTRY DATE: NOV 19, 2024@07:18:20 AUTHOR: BESSY HOYT EXP COSIGNER: JEFFERSON VITAL URGENCY: STATUS: COMPLETED The following are new medications prescribed since surgery: * Aspirin 81 mg orally twice a day for 30 days for blood clot prevention * Tylenol 325mg 2 tabs orally every 6 hours for pain * Tramadol 50mg 1 tab orally every 6 hours as need for pain (1st line as needed medication) * Oxycodone 5mg 1 tab orally every 4 hours as needed for pain (2nd line as needed medication) * Docusate 50mg/Senna 8.6mg 1 tab orally twice per day for constipation while on narcotics * Meloxicam 7.5mg 1 tab orally once per day for pain * Cyclobenzaprine 5mg 1 tab orally three times per day as needed for muscle spasms PAIN MEDICATION INFORMATION Orthopedics will prescribe narcotics for pain control after surgery for up to 90 days only. You have been given 30 tablets at discharge. If you need additional medication, it can be mailed to you or picked up at [facility]. Please call the PAIN MEDICATION line [phone], Option #3 if you need additional narcotic medication. Please leave your full name, the last four of your social security number, the medication you need and whether you wish it mailed or picked up at the hospital. We will not prescribe chronic pain medication (lobsterman or permanent). Those medications are managed by your pain specialist or primary care provider. Please contact them for chronic pain medication. ANTIBIOTIC PROPHYLAXIS FROM ORTHOPEDICS: TOTAL KNEE ARTHROPLASTY Some health procedures put your joint replacement at risk for infection even years after surgery. Different procedures may give bacteria access to the blood stream, a process called bacteremia. Dental exams/cleaning/procedures, surgery, tattooing, or medical tests/treatments may cause bacteremia. Bacteria in the blood stream can very rarely travel to a joint replacement, infecting it. To prevent infection, your surgeons recommend waiting for 6 months for routine dental cleaning and lifetime antibiotic prophylaxis (antibiotics taken before the procedure has begun). Generally, an antibiotic is taken one hour prior to the procedure. If you are about to have a procedure, including dental cleaning, be sure to let your doctor or dentist know that you have had a joint replacement. Ask them about antibiotic needs before your procedure. Please alert us of upcoming procedures, and we will gladly place antibiotic orders at our pharmacy for you. Should you have questions or concerns, please contact us at [phone], option #2. WOUND MANAGEMENT: PRINEO DRESSING * Your incision is closed with Prineo (a clear liquid sealant and mesh) that will remain on your incision for 21 days after surgery. Leave your incision/Prineo open to air. During your first home health visit the nurse will evaluate your incision to ensure it is sealed and perform return demonstration regarding wound care management and removal of Prineo. DO NOT SCRATCH, RUB, SCRUB OR PICK AT THE PRINEO-- this could cause it to loosen or come off before your incision is healed. * You may shower starting 3 days after surgery, allowing the water to rinse over the Prineo and PAT to dry. * The patient will remove mesh 21 days after surgery- gently pull the mesh down from the top of your incision. * If you notice the Prineo beginning to loosen or coming off, contact your surgeon's nurse for further instructions. * Do NOT submerge your incision (in a tub, hot tub, pool, her, river, etc.) until it is healed and your surgeon says its ok. Do NOT use lotion, oil, alcohol or cream on your incision. SWELLING PREVENTION * Apply ice to your knee up to 20 minutes an hour, as needed, while awake especially after therapy and home exercises. Do NOT apply the ice directly to your skin. * Elevate your operative leg, keeping your toes higher than your knee and your knee higher than you heart. Use pillows (lengthwise) to create a ramp that will support your entire leg and keep your knee as straight as possible. Try to do this position for 40 minutes about 3 times a day. * DO NOT REST your operative leg on the floor longer than 30 minutes at a time. * Always put your heel up on another chair/ottoman. Take frequent short walks around your home/room daily to help decrease the swelling. * Use your Incentive Spirometer 10 deep breaths every hour while awake. * Do NOT submerge your incision (in a tub, hot tub, pool, her, river, etc.) until it is healed and your surgeon says its ok. Do NOT use lotion, oil, alcohol or cream on your incision. DISCHARGE DIETARY INSTRUCTIONS: Return to prior home diet If you have questions, contact the dietitians at [facility] or [facility]. DISCHARGE PHYSICAL ACTIVITY INSTRUCTIONS: * You may bear weight on your operative leg as tolerated * You will receive an EZ stretch after discharge, you should use the machine 5-6 times per day for 20 minutes It is designed to help with flexion and extension of your knee Employment: No work until further notice WORSENING and/or DANGEROUS SYMPTOMS TO REPORT If you experience ANY of the symptoms below, CONTACT Erin Hollis Orthopedic Fiber Optic Assembly Worker [phone] extension [phone] right away. Fevers greater than 101.6 degrees F on 2 or more measurements Drainage Wound appearance changes Bleeding Redness Swelling Shortness of breath Chest pain DISCHARGE INTRUCTIONAL MATERIALS * To be printed by Nurse, discussed with, and provided to patient * You will be receiving custodial and physical therapy for the next 2-4 weeks depending on your progress. Follow-up with your PCP or Specialist or call [facility] Helpline: [phone] NOTE: If you are having feelings of Depression or Emotional Distress,or feel you just need to talk with someone, please call [phone]),[employer]. /brianda/ BESSY HOYT MD Resident Physician, Orthopedics Signed: 11/19/2024 07:28 /brianda/ JEFFERSON Velasquez ZAHRAA JOINT RECONSTRUCTIVE SURGERY Cosigned: 11/19/2024 10:07 Receipt Acknowledged By: 11/29/2024 12:17 /es/ ALONDRA BRYANT Staff Physician 11/28/2024 09:58 /es/ Contreras Barrett Rn, BSN REGISTERED NURSE BESSY HOYT [facility] Nov 19, 2024 07:16 AM ORTHOPEDIC SURGERY NOTE: LOCAL TITLE: ORTHOPEDIC ST STANDARD TITLE: ORTHOPEDIC SURGERY NOTE DATE OF NOTE: NOV 19, 2024@07:16 ENTRY DATE: NOV 19, 2024@07:16:48 AUTHOR: BESSY HOYT EXP COSIGNER: JEFFERSON VITAL URGENCY: STATUS: COMPLETED S: AFVSS. Pain controlled. No chest pain, shortness of breath, nausea or vomiting. No events overnight. Labs pending. PT/OT dispo. O: 97.9 F [36.6 C] (11/19/2024 04:48) 109/67 (11/19/2024 04:48) 65 (11/19/2024 04:48) 20 (11/19/2024 04:48) Measurement DT POx (L/MIN)(%) 11/19/2024 04:48 96 11/18/2024 20:59 96 11/18/2024 16:20 95 11/18/2024 15:58 94 NAD RLE - SILT SP/DP/T - DP 2+ - EHL/TA/GSC intact - dressing c/d/i WBC 4.8 10*3/uL 10/27/2024 10:29 RBC 4.34 10*6/uL 10/27/2024 10:29 HGB 13.1 g/dL 10/27/2024 10:29 HCT 38.8 % 10/27/2024 10:29 MCV 89.4 fL 10/27/2024 10:29 MCH 30.2 pg 10/27/2024 10:29 MCHC 33.8 g/dL 10/27/2024 10:29 RDW 12.9 % 10/27/2024 10:29 PLT 240 10*3/uL 10/27/2024 10:29 MPV 8.4 fL 10/27/2024 10:29 NEUTROPHILS, AUTO % 59 % 10/27/2024 10:29 LYMPHOCYTES, AUTO % 29 % 10/27/2024 10:29 MONOCYTES, AUTO % 9 % 10/27/2024 10:29 EOSINOPHILS, AUTO % 2 % 10/27/2024 10:29 BASOPHILS, AUTO % 1 % 10/27/2024 10:29 NEUTROPHILS, ABSOLUTE 2.82 10*3/uL 10/27/2024 10:29 LYMPHOCYTES, ABSOLUTE 1.38 10*3/uL 10/27/2024 10:29 MONOCYTES, ABSOLUTE 0.45 10*3/uL 10/27/2024 10:29 EOSINOPHILS, ABSOLUTE 0.08 10*3/uL 10/27/2024 10:29 BASOPHILS, ABSOLUTE 0.03 10*3/uL 10/27/2024 10:29 SODIUM 134 L mEq/L 11/16/2024 08:28 POTASSIUM 4.2 mEq/L 11/16/2024 08:28 CHLORIDE 100 mEq/L 11/16/2024 08:28 UREA NITROGEN 14.7 mg/dL 11/16/2024 08:28 CREATININE 1.02 mg/dL 11/16/2024 08:28 CALCIUM 9.5 mg/dL 11/16/2024 08:28 CARBON DIOXIDE 24 mEq/L 11/16/2024 08:28 GLUCOSE 98 mg/dL 11/16/2024 08:28 EGFR (CKD-EPI 2020) 75.2 11/16/2024 08:28 PT: 11.3 sec (10/27/24 10:30) No PTT EO data found INR: INR VALUE 1.0 INR 10/27/2024 10:30 PROTIME 11.3 sec 10/27/2024 10:30 A/P: POD#1 s/p R TKA - Continue ice/elevate - Pain control - IS - PT/OT - f/u labs - dc today after the above /brianda/ BESSY HOYT MD Resident Physician, Orthopedics Signed: 11/19/2024 07:18 /brianda/ JEFFERSON Velasquez VITAL JOINT RECONSTRUCTIVE SURGERY Cosigned: 11/19/2024 10:06 BESSY HOYT [facility] Nov 19, 2024 01:27 AM NURSING INPATIENT NOTE: LOCAL TITLE: [facility] ACUTE INPATIENT NSG SHIFT ASSESSMENT STANDARD TITLE: NURSING INPATIENT NOTE DATE OF NOTE: NOV 19, 2024@01:27 ENTRY DATE: NOV 19, 2024@01:27:19 AUTHOR: NATHANIEL LAWSON COSIGNER: URGENCY: STATUS: COMPLETED Version 2.2 Charting in accordance with [facility] STANDARD ([facility]) ACUTE INPATIENT/REHABILITATION NURSING ADMISSION SCREENING, ASSESSMENT, AND STANDARDS OF CARE ==== ASSESSMENT ==== ==== PAIN ASSESSMENT ==== Patient's acceptable pain goal: 3 Sometimes distracts me Are you currently experiencing pain? Yes - DVPRS scale used to assess Location: right knee Defense and Veterans Pain Rating Scale (DVPRS): 3 Sometimes distracts me Pain Score: 4 ==== BREAUX FALL SCALE & TIPS PROGRAM ==== Breaux Fall Scale: The Breaux Fall scale was performed and score was 55. This is indicative of high risk for falls. History of falling: immediate or within 3 months? No Secondary diagnosis: Yes Ambulatory aid: None/bedrest/nurse assist Intravenous therapy/Heparin lock: Yes Gait/Transferring: Impaired Mental Status: Oriented to own ability/knows own limitations ==== ENVIRONMENTAL SAFETY MANAGEMENT ==== Implemented safety standards of care: -[place] to unit & environment -Adequate room lighting -Bed in low and locked position -Call light within reach -Personal items within reach -Traffic path in room free of clutter -Non-slip footwear -Upper/half length side rails up for bed mobility -Sensory aids within reach -Encourage patient to utilize sensory support ==== NEUROLOGICAL ==== Neurological Orientation: Oriented x4 Level of Consciousness (AVPU): Alert = Appears aware of and responsive to the environment on their own. Follows commands, opens eyes spontaneously, and tracks objects. Affect/behavior: Cooperative Calm ==== NEUROMUSCULAR/NEUROVASCULAR EXTREMITIES ASSESSMENT ==== Strength: Concept Artist Bilateral: Strong Upper Extremity Bilateral: Lower Extremity Bilateral: Full strength ==== CARDIOVASCULAR ==== Heart Rate/Rhythm (without lunchroom monitor): Regular Capillary Refill: All 4 extremities, less than or equal to 3 seconds. Edema: Present Dependent Location: right knee Cardiovascular - Embolism Prevention: Sequential Compression Device (SCD): Knee high Bilateral ==== RESPIRATORY ==== Respirations: Unlabored Pattern: Regular Breath Sounds Auscultated: Anterior and posterior Left Upper Lobe: Clear Right Upper Lobe: Clear Right Middle Lobe: Clear Left Lower Lobe: Clear Right Lower Lobe: Clear ==== GASTROINTESTINAL ==== Last bowel movement: 11/17/2024 Elimination: Continent Palpation: Soft Bowel Sounds: RUQ: Active LUQ: Active RLQ: Active LLQ: Active ==== GENITOURINARY ==== Elimination: Continent === INTEGUMENTARY/SKIN/WOUND - (INCLUDING JES) SEE NOTE: [facility]ES SKIN INPECTION/ASSESSMENT === ==== ACTIVITIES OF DAILY LIVING ==== Hygiene ADLs: Dressing: Upper Body: Independent Oral Care: Non-ventilator patient: ==== MOBILITY ==== Mobility Status: Gait: Unable to ambulate ==== IV LINES ==== Peripheral IV: Line #1: ==== PSYCHOSOCIAL ==== Type of Emotional Support Provided: 1:1 discussion /es/ NATHANIEL FELIX RN REGISTERED NURSE Signed: 11/19/2024 01:53 NATHANIEL LAWSON. [facility] Nov 19, 2024 01:05 AM NURSING TREATMENT PLAN NOTE: LOCAL TITLE: [facility] PLAN OF CARE STANDARD TITLE: NURSING TREATMENT PLAN NOTE DATE OF NOTE: NOV 19, 2024@01:05 ENTRY DATE: NOV 19, 2024@01:05:07 AUTHOR: NATHANIEL LAWSON EXP COSIGNER: URGENCY: STATUS: COMPLETED Nursing Diagnosis: Infection, Actual/Potential Goals/Outcomes: 1. Remains free from infection or acquires no new infection., 2. Verbalizes and demonstrates actions to decrease spread of infection. Interventions: Monitor vital signs, including respiratory pattern/breath sounds, Provide adequate hydration and nutrition I&O q shift Respiratory Care: effective position/pattern for coughing Wound Care: change dressings as soon as they become wet; reinforce if unable to change., monitor skin integrity of surgical wound and drain sites; observe for redness and/or drainage Educational Needs: Infection prevention/care instruction Other: right knee arthroscopy Goals have been mutually set with patient. /brianda/ NATHANIEL LAWSON BSN RN REGISTERED NURSE Signed: 11/19/2024 01:27 NATHANIEL LAWSON Jun [facility] Nov 18, 2024 10:45 PM NURSING NOTE: LOCAL TITLE: [facility] SKIN INSPECTION/ASSESSMENT STANDARD TITLE: NURSING NOTE DATE OF NOTE: NOV 18, 2024@22:45 ENTRY DATE: NOV 18, 2024@22:46:03 AUTHOR: NATHANIEL LAWSON EXP COSIGNER: URGENCY: STATUS: COMPLETED Assessment Type: INITIAL SKIN INSPECTION/ASSESSMENT SKIN INSPECTION: Skin Color: Usual for ethnicity Skin Temperature: Warm Skin Moisture: Normal Skin Turgor: Elastic (normal/immediate) Jes Skin Assessment: The patient's Jes Scale Score is 16. The patient is at mild risk for development of pressure ulcer/injury. Sensory perception -- ability to respond meaningfully to pressure-related discomfort Slightly limited. Moisture -- degree to which skin is exposed to moisture Occasionally moist. Activity -- ability to change and control body position Walks occasionally. Mobility -- ability to change and control body position Very limited. Nutrition -- usual food intake patterns Adequate. Friction and shear Potential problem. INTERVENTIONS: New or changed pressure ulcer/injury interventions or medical condition. Pressure-Redistribution measures: Elevate heels using pillows, foam blocks, or offloading boots Encourage small, frequent position changes Maximize mobilization: Encourage activity as tolerated Manage moisture: Apply protective barrier ointment Maintain clean and dry skin Offer bedpan or urinal at scheduled intervals if patient/resident is bed-bound /brianda/ NATHANIEL SOLISN RN REGISTERED NURSE Signed: 11/18/2024 22:[address] [facility] Nov 18, 2024 10:42 PM NURSING INPATIENT NOTE: LOCAL TITLE: [facility] NURSING FREQUENT DOCUMENTATION STANDARD TITLE: NURSING INPATIENT NOTE DATE OF NOTE: NOV 18, 2024@22:42 ENTRY DATE: NOV 18, 2024@22:42:58 AUTHOR: NATHANIEL LAWSON EXP COSIGNER: URGENCY: STATUS: COMPLETED Version 2.4 Charting in accordance with [facility] STANDARD ([facility]) ACUTE INPATIENT/REHABILITATION NURSING ADMISSION SCREENING, ASSESSMENT, AND STANDARDS OF CARE ==== NATIONAL EARLY WARNING SCORE (NEWS) ==== The following vital measurements were used to complete the NEWS. Measurement DT TEMP PULSE RESP BP POx F(C) (L/MIN)(%) 11/18/2024 20:59 97.2(36.2) 65 20 152/76 96 The NEWS total is 0. 1. Temperature (C/F): Score = 0 36.1 - 38.0 C (96.9 - 100.4 F) 2. Pulse: Score = 0 51-90 3. Respirations: Score = 0 12-20 4. Blood Pressure (Only Systolic BP, mmHg): Score = 0 111-219 5. Pulse Oximetry: Score = 0 96% or greater 6. Supplemental oxygen in use: Score = 0 No 7. AVPU: Score = 0 Alert Patient Status: Remains on unit === NEURO CHECKS === Neurological Orientation: Oriented x4 Level of Consciousness (AVPU): Alert = Appears aware of and responsive to the environment on their own. Follows commands, opens eyes spontaneously, and tracks objects. /brianda/ NATHANIEL FELIX RN REGISTERED NURSE Signed: 11/18/2024 22:44 NATHANIEL LAWSON [facility] Nov 18, 2024 06:51 PM NURSING INPATIENT NOTE: LOCAL TITLE: [facility] NURSING FREQUENT DOCUMENTATION STANDARD TITLE: NURSING INPATIENT NOTE DATE OF NOTE: NOV 18, 2024@18:51 ENTRY DATE: NOV 18, 2024@18:52:06 AUTHOR: NAVEEN RUELAS COSIGNER: URGENCY: STATUS: COMPLETED Version 2.4 Charting in accordance with [facility] STAND[facility] ([facility]) ACUTE INPATIENT/REHABILITATION NURSING ADMISSION SCREENING, ASSESSMENT, AND STANDARDS OF CARE === NEURO CHECKS === Neurological Orientation: Oriented x4 Level of Consciousness (AVPU): Alert = Appears aware of and responsive to the environment on their own. Follows commands, opens eyes spontaneously, and tracks objects. Strength: Concept Artist Bilateral: Strong Upper Extremity Bilateral: Full strength Lower Extremity Bilateral: Moves against gravity Unequal Lower Extremity Strength: Right: Moves against gravity Left: Full strength +pp bilateral lower ext.,pt. able to flex and extend bilateral ankles, both lower ext. cap . refill less than 3 sec.,, currently denies pain ,will monitor.. /es/ Naveen Ruelas RN REGISTERED NURSE Signed: 11/18/2024 18:[address] [facility] Nov 18, 2024 06:11 PM NURSING INPATIENT NOTE: LOCAL TITLE: [facility] NURSING FREQUENT DOCUMENTATION STANDARD TITLE: NURSING INPATIENT NOTE DATE OF NOTE: NOV 18, 2024@18:11 ENTRY DATE: NOV 18, 2024@18:11:52 AUTHOR: YUDY THOMPSON EXP COSIGNER: URGENCY: STATUS: COMPLETED Version 2.4 Charting in accordance with [facility] STAND[facility] ([facility] ACUTE INPATIENT/REHABILITATION NURSING ADMISSION SCREENING, ASSESSMENT, AND STANDARDS OF CARE ==== ACTIVITIES OF DAILY LIVING ==== Hygiene ADLs: Eating: Independent ==== ENVIRONMENTAL SAFETY MANAGEMENT ==== Implemented safety standards of care: -[place] to unit & environment -Adequate room lighting -Bed in low and locked position -Call light within reach -Personal items within reach -Traffic path in room free of clutter -Non-slip footwear -Upper/half length side rails up for bed mobility -Sensory aids within reach -Encourage patient to utilize sensory support ===== ORAL INTAKE (PERCENTAGE OF MEAL EATEN) ===== Dinner: 76% - 100% /es/ YUDY THOMPSON NA Signed: 11/18/2024 18:[address] [facility] Nov 18, 2024 05:07 PM NURSING INPATIENT NOTE: LOCAL TITLE: [facility] ACUTE INPATIENT NSG SHIFT ASSESSMENT STANDARD TITLE: NURSING INPATIENT NOTE DATE OF NOTE: NOV 18, 2024@17:07 ENTRY DATE: NOV 18, 2024@17:08:12 AUTHOR: NAVEEN RUELAS COSIGNER: URGENCY: STATUS: COMPLETED Version 2.2 Charting in accordance with [place] [facility] [place] STANDARD ([facility]) ACUTE INPATIENT/REHABILITATION NURSING ADMISSION SCREENING, ASSESSMENT, AND STANDARDS OF CARE ==== REASSESSMENT ==== ==== HANDOFF ==== Bedside report and handoff completed Safety check completed ==== PAIN ASSESSMENT ==== Patient's acceptable pain goal: 0 No pain Are you currently experiencing pain? No: Pain Score: 0 ==== BREAUX FALL SCALE & TIPS PROGRAM ==== Breaux Fall Scale: The Breaux Fall scale was performed and score was 35. This is indicative of moderate risk for falls. History of falling: immediate or within 3 months? No Secondary diagnosis: Yes Ambulatory aid: None/bedrest/nurse assist Intravenous therapy/Heparin lock: Yes Gait/Transferring: Normal/bed rest/immobile Mental Status: Oriented to own ability/knows own limitations Fall Tailoring Interventions for Patient Safety (TIPS) Fall TIPS initiated with patient: Yes Interventions: IV assistance when walking Fall TIPS reviewed with patient: Yes Interventions: IV assistance when walking ==== ENVIRONMENTAL SAFETY MANAGEMENT ==== Implemented safety standards of care: -[place] to unit & environment -Adequate room lighting -Bed in low and locked position -Call light within reach -Personal items within reach -Traffic path in room free of clutter -Non-slip footwear -Upper/half length side rails up for bed mobility -Sensory aids within reach -Encourage patient to utilize sensory support ==== NEUROLOGICAL ==== Neurological Orientation: Oriented x4 Level of Consciousness (AVPU): Alert = Appears aware of and responsive to the environment on their own. Follows commands, opens eyes spontaneously, and tracks objects. Affect/behavior: Cooperative Calm ==== NEUROMUSCULAR/NEUROVASCULAR EXTREMITIES ASSESSMENT ==== Strength: Concept Artist Bilateral: Strong Upper Extremity Bilateral: Full strength Lower Extremity Bilateral: Moves against gravity Sensation: Upper Extremity Sensation Bilateral: Intact Lower Extremity Sensation Bilateral: Intact Temperature: Upper Extremity Temperature Bilateral: Cool Lower Extremity Temperature Bilateral: Cool ==== CARDIOVASCULAR ==== Heart Sounds: Normal (S1S2) Capillary Refill: All 4 extremities, less than or equal to 3 seconds. Edema: Present Dependent Location: right total knee arthroplasty ==== RESPIRATORY ==== Respirations: Unlabored Breath Sounds Auscultated: Anterior and posterior Left Upper Lobe: Clear Right Upper Lobe: Clear Right Middle Lobe: Clear Left Lower Lobe: Clear Right Lower Lobe: Clear ==== GASTROINTESTINAL ==== Elimination: Continent Palpation: Non-tender Bowel Sounds: RUQ: Active LUQ: Active RLQ: Active LLQ: Active ==== GENITOURINARY ==== Elimination: Continent === INTEGUMENTARY/SKIN/WOUND - (INCLUDING JES) SEE NOTE: [facility] SKIN INPECTION/ASSESSMENT === ==== ACTIVITIES OF DAILY LIVING ==== Hygiene ADLs: Eating: Independent Oral Care: Non-ventilator patient: Patient teeth brushed: Independently ------- The was educated that poor oral hygiene increases the risk of hospital acquired pneumonia and dental problems like gingivitis and tooth decay. was educated using their preferred method and verbalized understanding. ------- ==== MOBILITY ==== Mobility Status: Comment: patient currently on bedrest,, ==== IV LINES ==== Peripheral IV: Present on admission: Line #1: Location: Right, Forearm Gauge: 18 ==== PSYCHOSOCIAL ==== Type of Emotional Support Provided: 1:1 discussion ==== ADULT EDUCATION ==== Updates to barriers to learning: None evident Updates to patient learning style: Demonstration Printed materials Verbal explanation /brianda/ Naveen Ruelas RN REGISTERED NURSE Signed: 11/18/2024 17:15 NAVEEN RUELAS [facility] Nov 18, 2024 05:06 PM NURSING INPATIENT NOTE: LOCAL TITLE: [facility] NURSING FREQUENT DOCUMENTATION STANDARD TITLE: NURSING INPATIENT NOTE DATE OF NOTE: NOV 18, 2024@17:06 ENTRY DATE: NOV 18, 2024@17:06:32 AUTHOR: NAVEEN RUELAS EXP COSIGNER: URGENCY: STATUS: COMPLETED Version 2.4 Charting in accordance with [facility] STAND[facility] ([facility]) ACUTE INPATIENT/REHABILITATION NURSING ADMISSION SCREENING, ASSESSMENT, AND STANDARDS OF CARE ==== NATIONAL EARLY WARNING SCORE (NEWS) ==== The following vital measurements were used to complete the NEWS. Measurement DT TEMP PULSE RESP BP POx F(C) (L/MIN)(%) 11/18/2024 15:58 97.4(36.3) 57 18 134/65 94 11/18/2024 08:45 98.6(37.0) 52 17 157/69 97 11/01/2024 11:11 97.6(36.4) 62 16 147/68 98 10/27/2024 09:33 97.5(36.4) 67 18 143/77 92 08/15/2024 10:13 97.4(36.3) 64 18 137/80 99 06/16/2024 10:39 97.6(36.4) 60 18 131/72 97 04/22/2024 09:31 97.8(36.6) 67 20 130/69 99 03/10/2024 10:20 97(36.1) 103 18 102/62 98 01/11/2024 08:50 97.4(36.3) 79 18 120/66 98 01/05/2024 10:08 130/72 01/05/2024 10:05 97.5(36.4) 70 18 166/83 99 10/05/2023 11:01 97.3(36.3) 86 18 122/74 97 07/06/2023 14:45 97.8(36.6) 85 18 138/81 97 02/09/2023 09:54 97.7(36.5) 79 18 126/69 96 01/02/2023 11:19 120/62 01/02/2023 11:15 97.6(36.4) 76 18 143/71 97 11/10/2022 09:58 97.9(36.6) 84 20 121/70 94 10/29/2022 14:43 97.3(36.3) 73 18 126/69 97 07/04/2022 10:01 96.6(35.9) 76 18 130/67 99 06/16/2022 14:36 98.6(37.0) 81 16 119/71 96 The NEWS total is 1. 1. Temperature (C/F): Score = 0 36.1 - 38.0 C (96.9 - 100.4 F) 2. Pulse: Score = 0 51-90 3. Respirations: Score = 0 12-20 4. Blood Pressure (Only Systolic BP, mmHg): Score = 0 111-219 5. Pulse Oximetry: Score = 1 94% - 95% 6. Supplemental oxygen in use: Score = 0 No 7. AVPU: Score = 0 Alert /es/ Naveen Ruelas, RN REGISTERED NURSE Signed: 11/18/2024 17:07 NAVEEN RUELAS [facility] Nov 18, 2024 04:55 PM NURSING NOTE: LOCAL TITLE: [facility] SKIN INSPECTION/ASSESSMENT STANDARD TITLE: NURSING NOTE DATE OF NOTE: NOV 18, 2024@16:55 ENTRY DATE: NOV 18, 2024@16:56:12 AUTHOR: NAVEEN RUELAS EXP COSIGNER: URGENCY: STATUS: COMPLETED Assessment Type: INITIAL SKIN INSPECTION/ASSESSMENT SKIN INSPECTION: Skin Color: Usual for ethnicity Skin Temperature: Cool Skin Moisture: Normal Skin Turgor: Elastic (normal/immediate) Jes Skin Assessment: The patient's Jes Scale Score is 17. The patient is at mild risk for development of pressure ulcer/injury. Sensory perception -- ability to respond meaningfully to pressure-related discomfort Slightly limited. Moisture -- degree to which skin is exposed to moisture Rarely moist. Activity -- ability to change and control body position Bedfast. Mobility -- ability to change and control body position Slightly limited. Nutrition -- usual food intake patterns Adequate. Friction and shear No apparent problem. INTERVENTIONS: New or changed pressure ulcer/injury interventions or medical condition. Pressure-Redistribution measures: Encourage small, frequent position changes Use pillows (or other pressure relieving devices) to separate pressure areas Maximize mobilization: Encourage activity as tolerated Manage moisture: Maintain clean and dry skin RISK FACTORS THAT INCREASE RISK FOR DEVELOPING PRESSURE INJURIES: The patient/resident has the following: Age over 75 SKIN ALTERATIONS: Pressure Ulcer/Injury Documentation from the past year: No data available SKIN ALTERATIONS: Wound Documentation from the past year: No data available for: Skin Integrity - Wound Skin Integrity - Wound Second Skin Integrity - Wound Third Skin Integrity - Wound Fourth Skin Integrity - Wound Fifth Skin Integrity - Wound Additional Wound - other than pressure ulcer/injury (includes open surgical wounds/incisions): Location: right total knee arthroplasty/ dressing c/d/i,,sweta wrapped, cooling blan, on knee, bilateral scd's Wound Type: Full thickness No Edema Wound drainage none. /jemma Ruelas RN REGISTERED NURSE Signed: 11/18/2024 17:06 NAVEEN RUELAS [facility] Nov 18, 2024 04:50 PM NURSING NOTE: LOCAL TITLE: [facility] PERSONAL EFFECTS [facility] STANDARD TITLE: NURSING NOTE DATE OF NOTE: NOV 18, 2024@16:50 ENTRY DATE: NOV 18, 2024@16:51:02 AUTHOR: NAVEEN RUELAS EXP COSIGNER: URGENCY: STATUS: COMPLETED PERSONAL EFFECTS Hazardous Check: Advised of prohibited hazardous items Prosthetic Check: Cane CELL PHONE, brief case, bag with belongings, cane,,, Personal Items: Patient/Family advised that [facility] not responsible for loss of any personal effects or valuables. Patient's personal effects sent home with . /jemma Ruelas RN REGISTERED NURSE Signed: 11/18/2024 16:55 NAVEEN RUELAS [facility] Nov 18, 2024 04:36 PM NURSING INPATIENT NOTE: LOCAL TITLE: [facility] NURSING FREQUENT DOCUMENTATION STANDARD TITLE: NURSING INPATIENT NOTE DATE OF NOTE: NOV 18, 2024@16:36 ENTRY DATE: NOV 18, 2024@16:39:33 AUTHOR: NAVEEN RUELASIGNER: URGENCY: STATUS: COMPLETED Version 2.4 Charting in accordance with [facility] STANDARD ([facility]) ACUTE INPATIENT/REHABILITATION NURSING ADMISSION SCREENING, ASSESSMENT, AND STANDARDS OF CARE === NEURO CHECKS === Neurological Orientation: Oriented x4 Level of Consciousness (AVPU): Alert = Appears aware of and responsive to the environment on their own. Follows commands, opens eyes spontaneously, and tracks objects. Strength: Concept Artist Bilateral: Strong Upper Extremity Bilateral: Full strength Lower Extremity Bilateral: Unequal Lower Extremity Strength: Right: Moves against some resistance Left: Full strength patient able to flex,extend bilateral lower ext., +pp, bilateral scd's, cooling appr. on right knee, dressing c/d/i /es/ Naveen Ruelas RN REGISTERED NURSE Signed: 11/18/2024 16:43 NAVEEN RUELAS [facility] Nov 18, 2024 04:04 PM NURSING ADMISSION EVALUATION NOTE: LOCAL TITLE: [facility] ACUTE INPATIENT NSG ADMISSION SCREEN STANDARD TITLE: NURSING ADMISSION EVALUATION NOTE DATE OF NOTE: NOV 18, 2024@16:04 ENTRY DATE: NOV 18, 2024@16:05:13 AUTHOR: NAVEEN RUELAS COSIGNER: URGENCY: STATUS: COMPLETED === ALLERGY/ADVERSE DRUG REACTION (ADR) REVIEW (MRT5) === FACILITY ALLERGY/ADR -------- [facility] RUELAS [facility] NO KNOWN ALLERGIES [facility] No Known Allergies Allergy/Adverse Drug Reaction Review to be conducted by: Nurse: Results of Allergy/ADR Review: Allergy/Adverse Drug Reaction list confirmed. == MEDICATION REVIEW (MRR1) == Did patient bring medication(s) from home? No Medication Review conducted by Nurse Results of Medication Review: Active Medication List: INCLUDED IN THIS LIST: Alphabetical list of active outpatient prescriptions dispensed from this [facility] (local) and dispensed from another [facility] or DoD facility (remote) as well as inpatient orders (local pending and active), local clinic medications, locally documented non-VA medications, and local prescriptions that have or been discontinued in the past 90 days. Non-VA Meds Last Documented On: Data not found NOTE The display of VA prescriptions dispensed from another VA or DoD facility (remote) is limited to active outpatient prescription entries matched to National Drug File at the originating site and may not include some items such as investigational drugs, compounds, etc. NOT INCLUDED IN THIS LIST: Medications self-entered by the patient into personal health records (i.e. [employer]) are NOT included in this list. Non-VA medications documented outside this [place], remote inpatient orders (regardless of status) and remote clinic medications are NOT included in this list. The patient and provider must always discuss medications the patient is taking, regardless of where the medication was dispensed or obtained. CLIN ALBUTEROL SO4 0.083% INHL 3ML (Status=Active) 2.5MG/3ML NEB NEEDED ONE-TIME NEEDED SHORTNESS OF BREATH Indication: FOR ASTHMA INPT ASPIRIN 81MG EC TAB (Status=Active) 81MG BY MOUTH TWICE A DAY Indication: FOR CARDIOVASCULAR DISEASE OUTPT ATORVASTATIN CALCIUM 80MG TAB (Status = Active) TAKE ONE-HALF TABLET BY MOUTH EVERY EVENING FOR HIGH CHOLESTEROL Rx# [id number] Last Released: 11/07/24 Qty/Days Supply: Rx Expiration Date: 01/05/25 Refills Remainin Indication: FOR HIGH CHOLESTEROL INPT ATORVASTATIN CALCIUM 40MG TAB (Status=Active) 40MG BY MOUTH EVERY EVENING Indication: FOR HIGH CHOLESTEROL INPT BUPROPION HCL 300MG 24HR SA TAB (Status=Active) 300MG BY MOUTH QDAILY Indication: FOR DEPRESSION OUTPT BUPROPION HCL 300MG 24HR SA TAB (Status = Active) TAKE ONE TABLET BY MOUTH ONCE A DAY FOR DEPRESSION SWALLOW WHOLE - DO NOT CRUSH OR CHEW. Rx# [id number] Last Released: 08/12/24 Qty/Days Supply: Rx Expiration Date: 08/10/25 Refills Remainin Indication: FOR DEPRESSION OUTPT CALCIUM 500MG (CA CARB-1.25GM) TAB (Status = Active) TAKE TWO TABLETS BY MOUTH TWICE A DAY FOR CALCIUM SUPPLEMENTATION Rx# [id number] Last Released: 10/31/24 Qty/Days Supply: Rx Expiration Date: 01/25/25 Refills Remainin Indication: FOR CALCIUM SUPPLEMENTATION INPT CALCIUM 500MG (CA CARB-1.25GM) TAB (Status=Active) 1000MG BY MOUTH TWICE A DAY Indication: FOR CALCIUM SUPPLEMENTATION CLIN CEFAZOLIN 2GM/BAG INJ,SOLN (Status=Active) CEFAZOLIN 2GM/BAG INJ,SOLN 100 ml IVPB INFUSE OVER 30 Minutes ONE-TIME TO OR Nov@06:00 Indication: FOR SURGICAL PROPHYLAXIS INPT CEFAZOLIN 2GM/BAG INJ,SOLN (Status=Active) CEFAZOLIN 2GM/BAG INJ,SOLN 100 ml IVPB INFUSE OVER 30 Minutes EVERY EIGHT HOURS for a total of 3 doses Indication: FOR SURGICAL PROPHYLAXIS OUTPT CETIRIZINE HCL 10MG TAB (Status = Active) TAKE ONE TABLET BY MOUTH ONCE A DAY FOR ALLERGY SYMPTOMS Rx# [id number] Last Released: 09/24/24 Qty/Days Supply: 90/90 Rx Expiration Date: 01/05/25 Refills Remainin Indication: FOR ALLERGY SYMPTOMS OUTPT CHLORHEXIDINE GLUCONATE 4% TOP LIQUID (Status = Active) APPLY SMALL AMOUNT TO AFFECTED AREA(S) DIRECTED FOR SKIN DISINFECTION (TOPICAL USE ONLY) AVOID CONTACT WITH EYES. STARTING 5 DAYS BEFORE SURGERY, WASH WITH WASH IN THE SHOWER FROM THE NECK DOWN. REPEAT DAILY AND THE MORNING OF SURGERY BEFORE ARRIVING AT THE HOSPITAL.. DAY OF SURGERY: REPEAT BEFORE ARRIVING TO THE HOSPITAL. Rx# [id number] Last Released: 11/14/24 Qty/Days Supply: 240/5 Rx Expiration Date: 12/14/24 Refills Remainin Indication: FOR SKIN DISINFECTION OUTPT CYCLOBENZAPRINE HCL 10MG TAB (Status = Active) TAKE ONE TABLET BY MOUTH THREE TIMES A DAY NEEDED FOR MUSCLE SPASM MAY CAUSE DROWSINESS. DO NOT DRINK ALCOHOL WHILE TAKING THIS MEDICATION. Rx# [id number] Last Released: 10/06/24 Qty/Days Supply: 270/90 Rx Expiration Date: 08/16/25 Refills Remainin Indication: FOR MUSCLE SPASM INPT CYCLOBENZAPRINE HCL 5MG TAB (Status=Active) 5MG BY MOUTH THREE TIMES A DAY NEEDED FOR MUSCLE RELAXANT Indication: FOR MUSCLE SPASM INPT DOCUSATE NA 50MG/SENNOSIDES 8.6MG TAB (Status=Active) ONE TABLET (8.6MG/50MG EA) BY MOUTH TWICE A DAY FOR CONSTIPATION Indication: FOR SOFTENING STOOL INPT DULOXETINE HCL 20MG EC CAP (Status=Active) 20MG BY MOUTH QDAILY Indication: FOR DEPRESSION OUTPT DULOXETINE HCL 30MG EC CAP (Status = Active) TAKE THREE CAPSULES BY MOUTH ONCE A DAY FOR DEPRESSION DO NOT ABRUPTLY DISCONTINUE MEDICATION. Rx# [id number] Last Released: 07/19/24 Qty/Days Supply: Rx Expiration Date: 05/10/25 Refills Remainin Indication: FOR DEPRESSION OUTPT ERGOCALCIF 1,250MCG (D2-50,000UNIT) CAP (Status = Active) TAKE ONE CAPSULE BY MOUTH EVERY WEEK FOR VITAMIN D DEFICIENCY Rx# [id number] Last Released: 10/31/24 Qty/Days Supply: Rx Expiration Date: 01/19/25 Refills Remainin Indication: FOR VITAMIN D DEFICIENCY INPT ERGOCALCIF 1,250MCG (D2-50,000UNIT) CAP (Status=Discontinued) 1250MCG BY MOUTH QW-(OPT) Indication: FOR VITAMIN D DEFICIENCY *UNSIGNED* CLIN FENTANYL CITRATE 50MCG/ML INJ 2ML (Status=Active) 25MCG-50MCG IVP Q15MIN NEEDED NEEDED FOR BREAKTHROUGH PAIN; UP TO MAX TOTAL DOSE OF 200MCG (PAIN SCORE 0-5, GIVE 25MCG; 6-10, GIVE 50MCG) - (FOR PACU USE ONLY) Indication: FOR ACUTE PAIN OUTPT FINASTERIDE 5MG TAB (Status = Active) TAKE ONE TABLET BY MOUTH ONCE A DAY SWALLOW WHOLE, DO NOT CRUSH, SPLIT, OR CHEW. Rx# [id number] Last Released: 08/13/24 Qty/Days Supply: Rx Expiration Date: 08/11/25 Refills Remainin Indication: FOR BENIGN PROSTATIC HYPERPLASIA INPT FINASTERIDE 5MG TAB (Status=Active) 5MG BY MOUTH QDAILY Indication: FOR BENIGN PROSTATIC HYPERPLASIA OUTPT FLUTICASONE PROP 50MCG 120D NASAL INHL (Status = Active) INSTILL 2 SPRAYS IN NOSTRIL(S) ONCE A DAY FOR RHINITIS (MUST BE USED DIRECTED FOR MINIMUM OF 21 DAYS TO PROVIDE ADEQUATE BENEFITS) Rx# [id number] Last Released: 11/08/24 Qty/Days Supply: Rx Expiration Date: 01/05/25 Refills Remainin Indication: FOR RHINITIS CLIN HYDRALAZINE HCL 20MG/ML INJ (Status=Active) 5MG/0.25ML IVP Q15MIN NEEDED FOR 24 HOURS prn blood pressure (systolic, diastolic or both) > 140/90 AND > 10% above baseline; to a maximum total dosage of 20 mg. (FOR PACU USE ONLY) Indication: FOR HIGH BLOOD PRESSURE OUTPT HYDROCHLOROTHIAZIDE 25MG TAB (Status = Active) TAKE ONE TABLET BY MOUTH ONCE A DAY FOR HIGH BLOOD PRESSURE Rx# [id number] Last Released: 11/07/24 Qty/Days Supply: Rx Expiration Date: 08/16/25 Refills Remainin Indication: FOR HIGH BLOOD PRESSURE INPT HYDROCHLOROTHIAZIDE 25MG TAB (Status=Active) 25MG BY MOUTH QDAILY Indication: FOR HIGH BLOOD PRESSURE CLIN HYDROMORPHONE 0.2MG/ML SYR 1ML (Status=Active) 0.2MG-0.8MG IVP Q15MIN NEEDED NEEDED FIRST LINE FOR PAIN; UP TO MAX TOTAL DOSE OF 4MG (PAIN SCORE 1-4: GIVE 0.2MG; 5-6: GIVE 0.4MG; 7-8:GIVE 0.6MG; 9-10:GIVE 0.8MG) - (FOR PACU USE ONLY) Indication: FOR SEVERE PAIN CLIN IPRATROPIUM BROMIDE 0.02% INH SOLN 2.5ML (Status=Active) 0.5MG/2.5ML NEB NEEDED ONE-TIME NEEDED SHORTNESS OF BREATH Indication: FOR ASTHMA INPT KETOROLAC TROMETHAMINE 30MG/ML INJ (Status=Active) 15MG/0.5ML IVP EVERY SIX HOURS FOR PAIN; ADMINISTER ONLY 2 DOSES Indication: FOR PAIN CLIN LABETALOL HCL 5MG/ML INJ (Status=Active) 5MG/1ML IVP Q15MIN NEEDED FOR 24 HOURS NEEDED SBP>160mmHg or MAP>100mmHg; MAX DOSE 20MG - (FOR PACU USE ONLY) Indication: FOR HIGH BLOOD PRESSURE OUTPT LISINOPRIL 20MG TAB (Status = Discontinued) TAKE ONE-HALF TABLET BY MOUTH ONCE A DAY FOR HIGH BLOOD PRESSURE Rx# [id number] Last Released: 11/14/24 Qty/Days Supply: 45/ Rx Expiration Date: 01/05/25 Refills Remainin Indication: FOR HIGH BLOOD PRESSURE OUTPT LISINOPRIL 20MG TAB (Status = Active) TAKE ONE TABLET BY MOUTH ONCE A DAY FOR HIGH BLOOD PRESSURE Rx# [id number] Last Released: 11/18/24 Qty/Days Supply: 90/90 Rx Expiration Date: 11/18/25 Refills Remainin Indication: FOR HIGH BLOOD PRESSURE INPT LISINOPRIL 20MG TAB (Status=Active) 20MG BY MOUTH QDAILY Indication: FOR HIGH BLOOD PRESSURE INPT MELOXICAM 15MG TAB (Status=Active) 15MG BY MOUTH QDAILY Indication: FOR OSTEOARTHRITIS OUTPT MUPIROCIN 2% OINT (Status = Active) APPLY SPARINGLY TO AFFECTED AREA(S) TWICE A DAY surgical indication EXTERNAL USE ONLY. APPLY TO EACH NOSTRIL TWICE EVERY DAY (USE SEPARATE COTTON TIP FOR EACH NOSTRIL ONCE IN THE MORNING AND ONCE IN THE EVENING) FOR (5) DAYS LEADING UP TO YOUR SURGERY. THEN APPLY IT ONE TIME ON THE MORNING OF SURGERY. Rx# [id number] Last Released: 11/14/24 Qty/Days Supply: 22/12 Rx Expiration Date: 12/14/24 Refills Remainin Indication: surgical indication CLIN ONDANSETRON HCL 2MG/ML INJ,SOLN (Status=Active) 4MG/2ML IVP EVERY SIX HOURS NEEDED FOR 24 HOURS NEEDED FOR NAUSEA (FOR PACU USE ONLY) Indication: FOR NAUSEA/VOMITING INPT OXYCODONE HCL 5MG TAB UD (Status=Active) 5MG BY MOUTH EVERY FOUR HOURS NEEDED FOR PAIN. PAIN SCORE: >3. 2nd line Indication: FOR ACUTE PAIN OUTPT SODIUM FLUORIDE 1.1% TOOTHPASTE (Status = Active) USE DIRECTED BY MOUTH TWICE A DAY FOR DENTAL CARIES TOOTHPASTE (DO NOT SWALLOW) APPLY A PEA-SIZED AMOUNT OF THE PASTE TO A TOOTHBRUSH AND BRUSH THOROUGHLY FOR TWO MINUTES, AT MORNING AND AT NIGHT; SPIT, DO NOT RINSE. DO NOT EAT, DRINK, OR RINSE FOR 30 MINUTES AFTER USE. Rx# [id number] Last Released: 09/28/24 Qty/Days Supply: 30 Rx Expiration Date: 09/24/25 Refills Remainin Indication: FOR DENTAL CARIES OUTPT SUNSCREEN 30-50/PHY BLOCK/PABA-F LOTION (Status = Active) APPLY LIBERALLY TO AFFECTED AREA(S) DIRECTED FOR SKIN PROTECTION (EXTERNAL USE ONLY) Rx# [id number] Last Released: 03/09/24 Qty/Days Supply: 120/30 Rx Expiration Date: 03/08/25 Refills Remainin Indication: FOR SKIN PROTECTION INPT TAMSULOSIN HCL 0.4MG CAP (Status=Active) 0.4MG BY MOUTH EVERY EVENING Indication: FOR BENIGN PROSTATIC HYPERPLASIA OUTPT TAMSULOSIN HCL 0.4MG CAP (Status = Active) TAKE ONE CAPSULE BY MOUTH EVERY EVENING FOR BENIGN PROSTATIC HYPERPLASIA APPROXIMATELY 30 MINUTES AFTER THE SAME MEAL EACH DAY Rx# [id number] Last Released: 11/17/24 Qty/Days Supply: 90 Rx Expiration Date: 08/16/25 Refills Remainin Indication: FOR BENIGN PROSTATIC HYPERPLASIA INPT TRAMADOL HCL 50MG TAB UD (Status=Active) 50MG BY MOUTH EVERY SIX HOURS NEEDED FOR PAIN. 1st line Indication: FOR PAIN CLIN TRANEXAMIC ACID 10MG/ML/NACL BAG 100ML (Status=Active) 1000MG/100ML IVPB ONE-TIME Infuse prior to skin incision.Infuse over 10 minutes Date:Nov Indication: FOR BLOOD LOSS PREVENTION CLIN TRANEXAMIC ACID 10MG/ML/NACL BAG 100ML (Status=Active) 1000MG/100ML IVPB ONE-TIME Infuse over 10 minutes at the start of wound closure. Date: Nov Indication: FOR BLOOD LOSS PREVENTION OUTPT TRAZODONE HCL 50MG TAB (Status = Active) TAKE ONE-HALF TABLET BY MOUTH AT BEDTIME FOR SLEEP Rx# [id number] Last Released: 07/19/24 Qty/Days Supply: 45 Rx Expiration Date: 05/10/25 Refills Remainin Indication: FOR SLEEP INPT TRAZODONE HCL 25MG TAB UD (Status=Active) 25MG BY MOUTH AT BEDTIME Indication: FOR SLEEP CLIN VANCOMYCIN 1.5GM/300ML PREMIX INJ (Status=Active) VANCOMYCIN 1.5GM/300ML PREMIX BY INJECTION 300 ml IVPB INFUSE OVER 120 Minutes SENIOR RESEARCH ANALYST TO OR 11/18 @0600 Indication: FOR SURGICAL PROPHYLAXIS SUPPLIES ===== MEDICATION REVIEW ===== 4. Patient/Family/Caregiver report TAKING WRITTEN all other medications == GENERAL INFORMATION == Admission information given by: Patient Is there a legal guardian/conservator? No Preferred language for discussing healthcare: Swedish Preferred mode of communication: Verbal Items at Bedside: Visual Aids: Standard Glasses === INFECTIOUS DISEASE RISK SCREEN === Travel Screen: Have you traveled within the [place] within the last 21 days? No Have you traveled outside the [place] within the last 21 days? No Within the last 14 days, have you had: No known exposure Other Exposure to Infectious Disease: No known exposure Patient reported the following symptoms: No Symptoms Present History of Multiple Drug Resistant Organism (MDRO): No === NUTRITION SCREENING === Malnutrition Screening Weight (Previous 6 months): Measurement DT WEIGHT LB(KG)[BMI] 11/18/2024 08:45 205(92.99)[33*] 11/14/2024 12:09 205(92.99)[34*] 11/07/2024 11:32 205(92.99)[34*] 11/01/2024 11:11 205(92.99)[34*] 10/31/2024 11:03 207(93.89)[32*] 10/27/2024 09:33 207.2(93.98)[33*] 08/15/2024 10:13 205.4(93.17)[32*] 06/16/2024 10:39 207.9(94.30)[33*] Lost weight recently without trying: No (0 points) Have you been eating poorly because of decreased appetite? No (0 points) Total Score: 0 Other Nutrition Screening Questions: The patient does not report any concerns with their teeth that would make it difficult to eat. The patient does not report overeating to the point of feeling sick or making themselves vomit. The patient denies having any food allergies, intolerance, special dietary needs, or ethnic, cultural or orthodoxy preferences that would affect their dietary needs. Food Insecurity Screening Within the past 12 months, you worried whether your food would run out before you got money to buy more. Never true Within the past 12 months, the food you bought just did not last you and you did not have the money to get more. Never true Food Insecurity Disposition: == RISK SCREENINGS == Alcohol Screen: Screen to be completed by: Nurse: SCREEN FOR ALCOHOL (AUDIT-C) An alcohol screening test (AUDIT-C) was negative (score=1). 1. How often did you have a drink containing alcohol in the past year? Consider a drink to be a 12 ounce can or bottle of regular beer, 8 ounces of malt liquor, a 5 ounce glass of table wine, or a 1.5 ounce shot of liquor (like scotch, gin, or vodka). Monthly or less 2. How many drinks containing alcohol did you have on a typical day when you were drinking in the past year? One or two drinks 3. How often did you have six or more drinks on one occasion in the past year? Never *Does the patient consume alcohol? No Tobacco Use: Never - tobacco user Do you currently or have you ever used alternative nicotine products? No Substance Use Assessment: *Do you use any recreational drugs or narcotics (prescription or non-prescription)? No === RISK OF WANDERING === The patient does not have a history of wandering. The patient does not have a history of elopement. The patient is not expressing a desire to leave. = SUICIDE SCREEN = [place] Suicide Severity Rating Scale (C-SSRS) 1. Over the past month, have you [...] required due to responses to other questions. C-SSRS Screen is Negative == EXPOSURE TO VIOLENCE AND ABUSE PRE-SCREEN == Are you worried for your safety, that you will be hurt or harmed? No Has anyone tried to force you to sign papers or use your money against your will? No == POST TRAUMATIC STRESS DISORDER CARE CONSIDERATIONS == To minimize a startle response, what is your preference on how best to awaken you? No preference === REPRODUCTIVE & SEXUAL HEALTH === Do you have any sexual or reproductive concerns you would like your healthcare team to be aware of? No == ADVANCE DIRECTIVE == Notification of Rights Related to Advance Directives: Written notification not provided. Explain: *The patient wishes to receive information about or assistance with Advance Care Planning and/or Advance Directive: No = SPIRITUALITY = Are there orthodoxy practices or spiritual concerns you want the ribbon lap machine tender, your provider, and other health care team members to know? No == ANTICIPATED DISCHARGE NEEDS == Where do you live? Housing owned/rented by : Comment: Method of transportation upon discharge: Private Vehicle: Comment: Are there any anticipated barriers to discharge? No = EDUCATIONAL NEEDS/LEARNING STYLE = Barriers to learning: None evident Patient learning style preferences: None == VISITOR INFORMATION == Will you have a primary support person while in the hospital? Yes: Relationship to patient: Spouse Visitor Name: ----- Contact Number: ---- Patient's Visitor Restriction preferences: No Privacy Review: Discussed with patient who may receive health information and the need for that identified person to provide a passcode for the staff to discuss. ==== BREAUX FALL SCALE & TIPS PROGRAM ==== Breaux Fall Scale: The Breaux Fall scale was performed and score was 35. This is indicative of moderate risk for falls. History of falling: immediate or within 3 months? No Secondary diagnosis: Yes Ambulatory aid: None/bedrest/nurse assist Intravenous therapy/Heparin lock: Yes Gait/Transferring: Normal/bed rest/immobile Mental Status: Oriented to own ability/knows own limitations Fall Tailoring Interventions for Patient Safety (TIPS) Fall TIPS initiated with patient: Yes Interventions: IV assistance when walking ==== PAIN ASSESSMENT ==== Patient's acceptable pain goal: 0 No pain Are you currently experiencing pain? No: /es/ Naveen Ruelas RN REGISTERED NURSE Signed: 11/18/2024 16:36 NAVEEN RUELAS [facility]
--- OUTSIDE RECORDS SUMMARY | 2024-11-19 02:24 | XMS_ITS ---
Author Name [facility] [place] [facility] [place] Address [address] [place] [address] Care Team Providers Care Life Claims Examiner Name Role Phone KOLE GARY Primary Care [...] Patient's Relationship to Policy Wiseman AUNG FREITAS [facility] (WNR) MEDICARE ADVANTAGE [facility] (WNR) Aug 03, 2017 [facility] (WN) [id number] [phone] FR RAE SEPULVEDA PATIENT [employer] [facility] (WNR) MEDICARE ADVANTAGE [facility] (WNR) December 01, 2022 [id number] [phone] FR RAE SEPULVEDA PATIENT [employer] M[facility] (WNR) MEDICARE ADVANTAGE [facility] (WNR) December 01, 2022 [id number] [phone] [id number] FR COCO ANK PATIENT [employer] MCR (WNR) MEDICARE ADVANTAGE [facility] ( WNR) December 01, 2022 [id number] [phone] [id number] FR RAE SEPULVEDA PATIENT [employer] [facility] (WNR) MEDICARE ADVANTAGE [facility] (WNR) Aug 03, 2021 [id number] [phone] [id number] FR RAE SEPULVEDA PATIENT [employer] MCR (WNR) MEDICARE ADVANTAGE MCR (WNR) Aug 03, 2017 [id number] [phone] FR RAE SEPULVEDA PATIENT [employer] MCR (WNR) MEDICARE ADVANTAGE MCR (WNR) Aug 03, 2017 [id number] [phone] FR RAE SEPULVEDA PATIENT Selected Encounter This section includes the information on record at [place] for the Encounter. Date/Time Encounter Type Encounter Description Reason Provider Source Nov 19, 2024 07:24 AM SELF CARE MNGMENT TRAINING OCCUPATIONAL THERAPY ICD-10-CM M25.561 Pain in right knee VERNON IBARRA [place] Encounter Template Text not used by [place] Assessments - Encounter Diagnoses This section includes the primary and secondary diagnoses documented for the Encounter. Date/Time Primary/Secondary Diagnosis Diagnosis Name Provider Source Nov 19, 2024 08:18 AM PRIMARY Pain in right knee DAVID IBARRA [facility] Nov 19, 2024 08:18 AM SECONDARY Weakness DAVID IBARRA [facility] Plan of Treatment: Future Appointments (+ 6 months) and Future Tests (+/- 45 days) The Plan of Treatment section includes future care activities for the [facility] This section includes future appointments and future [...] 08:00 AM AMBULATORY - NONE [facility] Nov 21, 2024 09:30 AM AMBULATORY - MEDICINE [facility] Nov 28, 2024 09:30 AM AMBULATORY - MEDICINE [facility] Nov 30, 2024 10:00 AM AMBULATORY - MEDICINE [facility] December 05, 2024 09:30 AM AMBULATORY - MEDICINE [facility] December 12, 2024 09:30 AM AMBULATORY - MEDICINE [facility] December 12, 2024 02:00 PM AMBULATORY - REHAB MEDICIN E [facility] December 13, 2024 11:00 AM AMBULATORY - SURGERY . Ronny [facility] December 14, 2024 10:00 AM AMBULATORY - SURGERY . [facility] December 19, 2024 09:30 AM AMBULATORY - MEDICINE [facility] December 19, 2024 11:00 AM AMBULATORY - REHAB MEDICIN E [facility] December 28, 2024 02:45 PM AMBULATORY - MEDICINE [facility] Jan 02, 2025 10:30 AM AMBULATORY - REHAB MEDICIN E [facility] Jan 09, 2025 09:30 AM AMBULATORY - MEDICINE [facility] Jan 09, 2025 10:30 AM AMBULATORY - NONE [facility] Jan 10, 2025 09:00 AM AMBULATORY - MEDICINE [facility] Jan 11, 2025 02:00 PM AMBULATORY - REHAB MEDICIN E [facility] Jan 16, 2025 09:30 AM AMBULATORY - MEDICINE [facility] Jan 18, 2025 09:30 AM AMBULATORY - REHAB MEDICIN E [facility] Jan 18, 2025 10:30 AM AMBULATORY - SURGERY [facility] Active, Pending, and Scheduled Orders This section includes a listing of several types of active, pending, and scheduled orders, including clinic medications orders, diagnostic test orders, procedure orders and consult orders; where the start date of the order is 45 days before the date of the Encounter or 45 days after the date of theEncounter. The data comes from all [place] treatment facilities. Test Date/Time Test Type Test Details Facility Name Oct 27, 2024 12:00 AM Laboratory - Blood Bank Order TYPE & SCREEN - LAB BLOOD SP [facility] Nov 18, 2024 06:00 AM Laboratory - Blood Bank Order TYPE & SCREEN - LAB BLOOD STAT WC [facility] Lab Results: +/- 30 days of the encounter This section includes the Chemistry and Hematology Lab Results on record with [place] for the patient. Radiology Reports and Pathology Reports are provided separately, in subsequent sections. Lab Results This section contains the Chemistry/Hematology Results that were resulted 30 days before or 30 daysafter the date of the Encounter. Date/Time Source Result Type Result - Unit Interpretation Reference Range Specimen Type Comment Nov 19, 2024 02:24 PM [facility] BASIC METABOLIC PANEL PLASMA Specimen Type: PLASMA Comment: No hemolysis noted. Ordering Provider: BESSY HOYT Report Released Date/Time: Nov 19, 2024 06:00 AM Reporting Lab: [facility] [address] [place] [address] Performing Lab: [address] [address] CREATININE 1.16 mg/dL 0.7-1.3 UREA NITROGEN 21.3 mg/dL 9.0-25.0 GLUCOSE 101 mg/dL H 72-99 SODIUM 133 meq/L L 136-145 POTASSIUM 4.4 meq/L 3.5-5 CHLORIDE 100 meq/L 98-107 CARBON DIOXIDE 21 meq/L L 22-31 CALCIUM 9.4 mg/dL 8.4-10.4 EGFR (CKD-EPI 2020) 64.5 >60 Nov 19, 2024 11:54 AM [facility] BASIC METABOLIC PANEL PLASMA Specimen Type: PL ASMA Comment: No hemolysis noted. Ordering Provider: JEFFERSON VITAL Report Released Date/Time: Nov 19, 2024 11:44 AM Reporting Lab: [facility] [address] [facility] [address] Performing Lab: [address] [address] CREATININE 1.15 mg/dL 0.7-1.3 UREA NITROGEN 23.4 mg/dL 9.0-25.0 GLUCOSE 107 mg/dL H 72-99 SODIUM 132 meq/L L 136-145 POTASSIUM 4.1 meq/L 3.5-5 CHLORIDE 101 meq/L 98-107 CARBON DIOXIDE 23 meq/L 22-31 CALCIUM 9.2 mg/dL 8.4-10.4 EGFR (CKD-EPI 2020) 65.1 >60 Nov 19, 2024 11:54 AM [facility] CBC BLOOD Specimen Type: BLOOD Comment: SCAN OF SLIDE AGREES WITH AUTOMATED DIFF Ordering Provider: VITAL,GIREESH B Report Released Date/Time: Nov 19, 2024 11:44 AM Reporting Lab: [address] [address] Performing Lab: [address] [address] WBC 11.2 10*3/uL 3.6-11.2 RBC 3.49 10*6/uL [...] 0.00-0. 20 Nov 18, 2024 06:00 PM [facility] MRSA SURVL NARES DNA NARES [...] Nov 18, 2024 03:43 PM Reporting Lab: [address] [address] Performing Lab: [facility] [address] [facility] [address] MRSA SURVL NARES DNA Negative Negative Nov 16, 2024 08:28 AM [facility] TSH W/ REFLEX FT4 (STL) PLASMA Specimen Type: PLASMA No comment entered. Ordering Provider: ALONDRA BRYANT Report Released Date/Time: Nov 01, 2024 04:02 PM Reporting Lab: [address] [address] Performing Lab: [address] [address] TSH 1.991 u[IU]/mL 0.47-5 Nov 16, 2024 08:28 AM [facility] BASIC METABOLIC PANEL PLASMA Specimen Type: PL ASMA Comment: No hemolysis noted. Ordering Provider: ALONDRA BRYANT Report Released Date/Time: Nov 01, 2024 04:02 PM Reporting Lab: [address] [address] Performing Lab: [address] [address] CREATININE 1.02 mg/dL 0.7-1.3 UREA NITROGEN 14.7 mg/dL 9.0-25.0 GLUCOSE 98 mg/dL 72-99 SODIUM 134 meq/L L 136-145 POTASSIUM 4.2 meq/L 3.5-5 CHLORIDE 100 meq/L 98-107 CARBON DIOXIDE 24 meq/L 22-31 CALCIUM 9.5 mg/dL 8.4-10.4 EGFR (CKD-EPI 2020) 75.2 >60 Nov 01, 2024 12:05 PM [facility] URINALYSIS (STL-PB) URINE Specimen Type: URIN E No comment entered. Ordering Provider: PERFECTO BOLES Report Released Date/Time: Oct 27, 2024 10:25 AM Reporting Lab: [address] [address] Performing Lab: [address] [address] URINE COLOR Light-Yellow Yellow U.BILIRUBIN Negative mg/dL Negative U.PH 6.5 5.0-8.0 APPEARANCE Clear Clear U.NITRITE Negative mg/dL Negative URN.GLUCOSE Normal mg/dL Negative URN.PROTEIN Negative mg/dL URN.UROBILINOGEN Normal mg/dL Normal URN.BLOOD Negative mg/dL Negative-Trace URN.KETONES Negative mg/dL Negative-Trac e URN.LEUK.EST. Negative mg/dL Negative-Tr sweta URN.SPECIFIC GRAVITY 1.012 Nov 01, 2024 12:05 PM [facility] URINE DRUG SCREEN (STL) URINE Specimen Type: URINE Comment: The cut-off value for Fentanyl was laboratory developed and its performance characteristics confirmed by the [facility] laboratory thru method comparison with reference laboratory and medication chart review. The laboratory is regulated under CLIA as qualified to perform high-complexity testing. Fentanyl is used for clinical purposes in conjunction with other laboratory tests. Ordering Provider: PERFECTO BOLES Report Released Date/Time: Oct 27, 2024 10:25 AM Reporting Lab: [facility] [address] [facility] [address] Performing Lab: [address] [address] ETHANOL <10 mg/dL 0-9 AMPHET/METHAMPHETAMINE Negative ng/mL COCAINE METABOLITES Negative ng/mL BENZODIAZEPINES (STL) Negative ng/mL CANNABINOIDS Negative ng/mL METHADONE Negative ng/mL OPIATES Negative ng/mL CREATININE URINE/OTHERS 68.8 mg/dL 63-16 6 OXYCODONE (KCTVA-NRY-TA) Negative ng/mL BUPRENORPHINE (STL-PB-MA) Negative ng/mL FENTANYL (STL) Negative ng/mL Nov 01, 2024 12:05 PM [facility] BASIC METABOLIC PANEL PLASMA Specimen Type: PL ASMA Comment: No hemolysis noted. Ordering Provider: ANDER LONGO Report Released Date/Time: Nov 01, 2024 11:45 AM Reporting Lab: [facility] [address] [facility] [address] Performing Lab: [address] [address] CREATININE 1.03 mg/dL 0.7-1.3 UREA NITROGEN 16.5 mg/dL 9.0-25.0 GLUCOSE 93 mg/dL 72-99 SODIUM 129 meq/L L 136-145 POTASSIUM 3.6 meq/L 3.5-5 CHLORIDE 98 meq/L 98-107 CARBON DIOXIDE 23 meq/L 22-31 CALCIUM 8.7 mg/dL 8.4-10.4 EGFR (CKD-EPI 2020) 74.4 >60 Oct 27, 2024 10:29 AM [facility] HGA1C BLOOD Specimen Type: BLOOD No comment entered. Ordering Provider: PERFECTO BOLES Report Released Date/Time: Oct 27, 2024 10:25 AM Reporting Lab: [address] [address] Performing Lab: [address] [address] HGA1C 5.9 4.0-6.0 Oct 27, 2024 10:29 AM [facility] VITAMIN D, 25-HYDROXY SERUM Specimen Type: SE RUM No comment entered. Ordering Provider: PERFECTO BOLES Report Released Date/Time: Oct 27, 2024 10:25 AM Reporting Lab: [address] [address] Performing Lab: [address] [address] VITAMIN D, 25-HYDROXY 24.1 ng/mL L 30-96 Oct 27, 2024 10:29 AM [facility] PT/INR NEW (STL-RI) PLASMA Specimen Type: PLAS MA No comment entered. Ordering Provider: PERFECTO BOLES Report Released Date/Time: Oct 27, 2024 10:25 AM Reporting Lab: [address] [address] Performing Lab: [address] [address] PROTIME 11.3 s 9.4-12.5 INR VALUE 1.0 {INR} Oct 27, 2024 10:29 AM [facility] COMPREHENSIVE METABOLIC PANEL PLASMA Specimen Type: PLASMA Comment: No hemolysis noted. Ordering Provider: PERFECTO BOLES Report Released Date/Time: Oct 27, 2024 10:25 AM Reporting Lab: [address] [address] Performing Lab: [address] [address] CREATININE 0.99 mg/dL 0.7-1.3 UREA NITROGEN 17.9 [...] Oct 27, 2024 10:25 AM Reporting Lab: [address] [address] Performing Lab: [address] [address] WBC 4.8 10*3/uL 3.6-11.2 RBC 4.34 10*6/uL [...] Height Weight Body Mass Index Source Nov 19, 2024 01:44 PM 9 [facility] Nov 19, 2024 10:40 AM 5 [facility] Nov 19, 2024 09:35 AM 73 138/57 18 98 3 [facility] Nov 19, 2024 08:55 AM 8 [facility] Nov 19, 2024 08:51 AM 8 [facility] Advance Directives: All historical and [...] 12, [address] [facility] December 24, 2011 ADVANCE DIRECTIVE DISCUSSION TOMMY VAZQUEZ [facility] Radiology Reports: +/- 30 days of [...] the Encounter. The data comes from all [place] treatment facilities. Date/Time Radiology Report Provider Source Nov 18, 2024 02:12 PM KNEE,RIGHT,1 OR 2 VIEWS: JOYCELYN SEPULVEDA [id number] -1945 M Exm Date: NOV 18, 2024@14:12 Req Phys: YOVANI DUNN Loc: 5C PCU -/11-19-2024@07:05 Img Loc: -MAIN RADIOLOGY SUITE Service: Unknown [address] [address] (Case [id number] COMPLETE) KNEE,RIGHT,1 OR 2 VIEWS (RAD Detailed) CPT:30156 Proc Modifiers : OR, RIGHT, AP & LAT Reason for Study: postop in OR R TKA Clinical History: Do films need to be ortho templated printed? No Report Status: Verified Date Reported: NOV 19, 2024 Date Verified: NOV 19, 2024 Breaker Table Worker E-Sig:/ES/Kuldip Decker MD Report: FINDINGS: Right knee replacement is noted and position appears satisfactory. Impression: Right knee replacement shows satisfactory position. Primary Interpreting Staff: Kuldip Decker MD, Radiologist (Breaker Table Worker) /QMB KULDIP DECKER [facility] Nov 01, 2024 09:58 AM NM MYOCARDIAL P SP ECT STRESS/REST-P: JOYCELYN SEPULVEDA [id number] -1945 M Exm Date: NOV 01, 2024@09:58 Req Phys: SUSANNA HILLS Loc: -CARDIO E-CONSULT (Req'g Loc Img Loc: -NUCLEAR MEDICINE Service: Unknown [address] [address] (Case [id number] COMPLETE) NM MYOCARDIAL PERF SPECT STRESS/R(NM Detailed) CPT:52162 Reason for Study: Pre-op Assessment' (Case 1429 COMPLETE) TC-99M TETROFOSMIN (MYOVIEW) (NM Detailed) CPT:A9502 (Case 1430 COMPLETE) TC-99M TETROFOSMIN (MYOVIEW), PE(NM Detailed) CPT:A9502 (Case 1431 COMPLETE) NON-HEU TC-99M ADD-ON PER STUDY D(NM Detailed) CPT:Q9969 (Case 1737 COMPLETE) REGADENOSON INJECTION (NM Detailed) CPT:J2785 Clinical History: Pre-op Assessment Report Status: Verified Date Reported: NOV 01, 2024 Date Verified: NOV 01, 2024 Breaker Table Worker E-Sig:/ES/Bon Castro MD,PhD Report: PATIENT NAME: JOYCELYN SEPULVEDA CASE #: [id number], [id number], [id number], [id number] EXAMINATION: Rest/Lexiscan Stress Gated SPECT Myocardial Imaging [...] Staff: Bon Castro MD,PhD, Nuclear Medicine Physician (Breaker Table Worker) Primary Interpreting Resident: RADHA PROCTOR MD /BON Ruelas [facility] Pathology Reports: +/- 30 days [...] the Encounter. The data comes from all [facility] facilities. Date/Time Pathology Report Provider Source Nov [...] - - POSTOPERATIVE DIAGNOSIS: Surgeon/physician: JEFFERSON Velasquez [facility]ITAL =-=-=-=-=-=-=-=-=-=-=-=-=-= -=-=-=-=-=-=-=-=-=-=-=-=-=- =-=-=-=-=-=-=-=-=-=-=-=-= - - - [...] x 3.0 cm for soft tissue fragments. Wetlands Conservation Laborer sections are submitted, following decalcification in RDO, in two cassettes A1-A2 MICROSCOPIC EXAM: ([place]) Microscopic examination of the sections submitted from right knee bone shows variable loss of articular cartilage with fibrillation and splitting. DIAGNOSIS: RIGHT KNEE BONE, RIGHT TOTAL KNEE ARTHROPLASTY: DEGENERATIVE CHANGES /es/ STUART RIVERS Pathologist Signed Nov 22, 2024@12:56 Performing Laboratory: Surgical Pathology Report Performed By: [facility] CLIA# [id number] 5 [facility] [address] [place] [address] $FTR - - - - - - - - - - - - - - - - - - - - - - - - - - - - - - - - - - - - - - - - (End of report) STUART RIVERS MD [facility] Date Nov 22, 2024 - - - - - - - - - - - - - - - - - - - - - - - - - - - - - - - - - - - - - - - - JOYCELYN SEPULVEDA STANDARD FORM 515 ID:[id number] SEX:M :1945 AGE: 78 LOC:APFEE PCP: Alondra Bryant /brianda/ STUART RIVERS Pathologist Signed: 11/22/2024 12:56 STUART RIVERS [facility] Encounter Notes: All associated encounter notes This section contains the clinical notes associated to the Encounter. Date/Time Encounter Note(s) Provider Source Nov 19, 2024 08:05 AM OCCUPATIONAL MEDIC INE CONSULT: LOCAL TITLE: OT CONSULT [facility] STANDARD TITLE: OCCUPATIONAL MEDICINE CONSULT DATE OF NOTE: NOV 19, 2024@08:05 ENTRY DATE: NOV 19, 2024@08:05:17 AUTHOR: SANJAY IBARRA COSIGNER: URGENCY: STATUS: COMPLETED Initial Occupational Therapy Note Date of initiation of treatment: 11/19/24 Requesting Provider: YOVANI DUNN Reason for request:R TKA Treatment visit #: 1 Refusals: 0 Diagnosis: Pain in right Knee(ICD-10-CM M25.561) Order/Precautions: WBAT Treatment Time: 6729-0642 (10 minutes OT eval, 20 minutes self-care) Contact OT via Vocera or Teams -Other people involved in treatment [X]None []Included: REASON FOR ADMISSION: s/p R TKA PAST MEDICAL HISTORY: stroke w/L side weakness, HTN, anxiety, depression HOME ENVIRONMENT: Lives with: ; reports she is 22 years younger House Type: 1 story house Stairs: 0 to enter Toilet: built-in higher; toilet surround Shower: walk-in w/shower chair Self-Care: assist from for all Ambulation device: cane and 4-WW; expecting standard walker from PT IADLs: dependent Driving: dependent Medication management: dependent Falls: per chart review, he has frequent falls Patient goals are: return home today SUBJECTIVE: 0/10 pain; just reports tightness in surgical leg OBJECTIVE: UE AROM: R UE- WFL; L UE - some function, but mostly rests in flexor synergy pattern UE STRENGTH: R UE- WFL; L UE - some function, but mostly rests in flexor synergy pattern weaver A/PROM/Coordination/Sugar Refinery Supervisor: decreased L hand Tone/Edema/other: L UE increased tone Endurance: fair Mental Status: a & o x 4 Pt was able to demonstrate understanding of therapy instructions this date. Further cognitive screen not indicated at this time. IRF-DEBRA Section GG Self-Care and Mobility LERMA: 6: Independent, 5: Setup or Cleanup Assistance. 4: Supervision or Touching Assistance. 3: Partial/Moderate Assistance. 2: Substantial/Maximal Assistance. 1: Dependent. 07: Refused. 09: Not Applicable--Did not perform this activity prior. 10: Not Attempted--Due to environmental limitations. 88: Not Attempted--Due to medical condition/safety concerns. - : not observed SELF-CARE Initial Goal Eatin 5 Oral Hygiene: - 5 Toilet Hygiene: - 2 Wash Upper Body: - 2 Shower/Bathe Self: - 1 UB Dressin 2 LB Dressin 1 Jeovanny/Doff Footwear: 1 1 Comments: reports assists with all self-care at baseline. required set up for breakfast. MOBILITY Roll L+R: - 6 Sit to Lying: - 6 Lying to Sitting EOB: 4 5 Sit to Stand: 3/4 4 Chair/Bed to Chair Tx: 3/4 4 Toilet Transfer: - 4 Comments: partial assist to stand from bed; supervision to stand from recliner chair. ambulated out of door to room and back close touching assist with use of FWW. vet unable to determine if this is close to baseline ambulation status, however is insistant his is 22 years younger than him and was trained will after his stroke and will be able to assist him if he returns home. He also insists it's his first time up and doesn't know what to expect. Equipment: none issued [place] Education [place] was informed of the purpose and benefit of OT. [place] educated on activity recommendations while in hospital. ASSESSMENT: 78 y/o male s/p R TKA. Kalpesh was previously getting assistance for self-care from his . He was ambulating with a cane or 4-WW at home, however chart indicates frequent falls. He demonstrates the need for close touching assist for mobility due to high fall risk. Kalpesh is insistant he can return home with assist from his as above. Will defer d/c recommendations to PT based on how he does when he gets up a second time. Will keep him on caseload in case he is here Thursday. If he returns home, he will require 24/7 care. DISCHARGE RECOMMENDATION: []Low Intensity Inpatient Rehabilitation []Comprehensive Inpatient Rehabilitation []24/7 Care - provided by facility or family; no therapy needs []24/7 Supervision either from family or facility []Home with []No further needs []Home Health OT []Prior Level of Assist []Outpatient OT []Assist for IADLs []Physiatry Consult to Outpatient PMR Service [x]Other: Kalpesh is insistant he can return home with assist from his as above. Will defer d/c recommendations to PT based on how he does when he gets up a second time. Will keep him on caseload in case he is here Thursday. If he returns home, he will require 24/7 care. Barriers to achieving goals: unsure baseline ambulation status; L side weakness and now surgery has been completed on his strong leg PLAN: [place] to be seen by OT PRN Treatment Plan: X___ADLs ___UE AROM/AAROM/PROM X___Transfers ___Cognition ___Coordination ___Endurance ___Gross/Fine Motor ___Visual Perception X___Standing Act. ___UE Strengthening ___Sensation/Compensation ___Visual Skills ___Facilitation ___Inhibition X___Adaptive equipment Assessment ___Other: SHORT TERM GOALS: To be achieved in ( 10 visits). 1. Vet will demo toilet transfer with supervision and DME prn. 2. Vet will demo bed->chair transfer with supervision and DME prn. 3. Vet will demo simulated toileting task to decrease caregiver burden. HARP ACTION ASSEMBLER GOALS: same as short term If this is the last OT intervention then this documentation serves at the discharge Note as well. * Occupational Profile and History [] Brief (low) [X] Expanded (moderate) [] Extensive (high) Performance deficits identified: [X] ADLs [X] IADLs [X] Functional mobility [X] Range of motion [X] Muscle Strength [X] Functional Endurance [X] Functional Balance [X] Fine motor coordination [X] Adaptive equipment needs [] Cognition [] Other (please specify: ___) [place]a: 1-3 performance deficits = Low complexity 3-5 performance deficits = moderate complexity 5 or more performance deficits = high complexity Level of Clinical Decision Making [] problem-focused assessment (low) [X] detailed assessment (medium) [] comprehensive assessment (high) --Therefore the level of complexity of this patient was: [] Low [X] Moderate [] High CLINICAL REMINDER Learning Assessment: Patient/Caregiver appeared ready for instruction (good eye contact, appropriate questions, active participation, etc.) Person(s) who received education: Patient Education Topic/Teaching Needs: Rehabilitation and Habilitation benefits and purpose of OT Methods used included: One-on-one: verbal Teaching outcomes: Fair level of understanding /brianda/ YANELY Garcia/Ronny, BELLO OT, Board Certified in Physical Rehabilitation Signed: 11/19/2024 08:18 SANJAY IBARRA [facility]
--- OUTSIDE RECORDS SUMMARY | 2024-11-19 04:00 | XMS_ITS | Encounter Summary ---
Author Name [facility] [place] [facility] [place] Address [address] [place] [address] Care Team Providers Care Customer Accounts Advisor Name Role Phone KOLE GARY Primary Care [...] Patient's Relationship to Policy Wiseman AUNG GOLD [facility] (WNR) MEDICARE ADVANTAGE [facility] (WNR) Aug 03, 2017 [facility] (WN) [id number] [phone] FR RAE SEPULVEDA PATIENT [employer] [facility] (WNR) MEDICARE ADVANTAGE MCR (WNR) December 01, 2022 [id number] [phone] FR RAE SEPULVEDA PATIENT [employer] [facility] (WNR) MEDICARE ADVANTAGE MCR (WNR) December 01, 2022 [id number] [phone] FR COCO ANK PATIENT [employer] [facility] (WNR) MEDICARE ADVANTAGE MCR ( WNR) December 01, 2022 [id number] [phone] FR RAE SEPULVEDA PATIENT [employer] [facility] (WNR) MEDICARE ADVANTAGE [facility] (WNR) Aug 03, 2021 [id number] [phone] FR RAE SEPULVEDA PATIENT [facility] (WNR) MEDICARE ADVANTAGE [facility] (WNR) Aug 03, 2017 [id number] [phone] FR RAE SEPULVEDA PATIENT [facility]UN[facility] [place] (WNR) MEDICARE ADVANTAGE [facility] (WNR) Aug 03, 2017 [id number] [phone] FR RAE SEPULVEDA PATIENT Selected Encounter This section includes the information on record at [place] for the Encounter. Date/Time Encounter Type Encounter Description Reason Provider Source Nov 19, 2024 09:00 AM THERAPEUTIC ACTIVITIES PHYSICAL THERAPY ICD-10-CM M25.561 Pain in right knee CHRISTILAKISHADeshaun Turner Catr[place]ito Encounter Template Text not used by [place] Assessments - Encounter Diagnoses This section includes the primary and secondary diagnoses documented for the Encounter. Date/Time Primary/Secondary Diagnosis Diagnosis Name Provider Source Nov 19, 2024 11:49 AM PRIMARY Pain in right knee CHRISTIMIHAI ORTA [facility] Plan of Treatment: Future Appointments (+ 6 months) and Future Tests (+/- 45 days) The Plan of Treatment section includes future care activities for the patient from all [place] [facility]. This section includes future appointments and future orders which are active, pending or scheduled. Future Appointments This section includes appointments that were scheduled to occur 6 months from the date of the Encounter, up to a maximum of 20 appointments. The data comes from all [place] treatment facilities. Appointment Date/Time Appointment Type Appointme nt Facility Name Nov 20, 2024 08:00 AM AMBULATORY - NONE [facility] Nov 21, 2024 09:30 AM AMBULATORY - MEDICINE [facility] Nov 28, 2024 09:30 AM AMBULATORY - MEDICINE [facility] Nov 30, 2024 10:00 AM AMBULATORY - MEDICINE [facility] December 05, 2024 09:30 AM AMBULATORY - MEDICINE [facility] December 12, 2024 09:30 AM AMBULATORY - MEDICINE [facility] December 12, 2024 02:00 PM AMBULATORY - REHAB MEDICIN E [facility] December 13, 2024 11:00 AM AMBULATORY - SURGERY [facility] December 14, 2024 10:00 AM AMBULATORY - SURGERY . [facility] December 19, 2024 09:30 AM AMBULATORY - MEDICINE [facility] December 19, 2024 11:00 AM AMBULATORY - REHAB MEDICIN E [facility] December 28, 2024 02:45 PM AMBULATORY - MEDICINE [facility] Jan 02, 2025 10:30 AM AMBULATORY - REHAB MEDICIN E [facility] Jan 09, 2025 09:30 AM AMBULATORY - MEDICINE [facility] Jan 09, 2025 10:30 AM AMBULATORY - NONE [facility] Jan 10, 2025 09:00 AM AMBULATORY - MEDICINE [facility] Jan 11, 2025 02:00 PM AMBULATORY - REHAB MEDICIN E [facility] Jan 16, 2025 09:30 AM AMBULATORY - MEDICINE [facility] Jan 18, 2025 09:30 AM AMBULATORY - REHAB MEDICIN E [facility] Jan 18, 2025 10:30 AM AMBULATORY - SURGERY [facility] Active, Pending, and Scheduled Orders This section includes a listing of several types of active, pending, and scheduled orders, including clinic medications orders, diagnostic test orders, procedure orders and consult orders; where the start date of the order is 45 days before the date of the Encounter or 45 days after the date of theEncounter. The data comes from all [facility]. Test Date/Time Test Type Test Details Facility Name Oct 27, 2024 12:00 AM Laboratory - Blood Bank Order TYPE & SCREEN - LAB BLOOD SP [facility] Nov 18, 2024 06:00 AM Laboratory - Blood Bank Order TYPE & SCREEN - LAB BLOOD STAT [facility] Lab Results: +/- 30 days of the encounter This section includes the Chemistry and Hematology Lab Results on record with [place] for the patient. Radiology Reports and Pathology Reports are provided separately, in subsequent sections. Lab Results This section contains the Chemistry/Hematology Results that were resulted 30 days before or 30 daysafter the date of the Encounter. Date/Time Source Result Type Result - Unit Interpretation Reference Range Specimen Type Comment Nov 19, 2024 02:24 PM [facility] BASIC METABOLIC PANEL PLASMA Specimen Type: PLASMA Comment: No hemolysis noted. Ordering Provider: BESSY HOYT Report Released Date/Time: Nov 19, 2024 06:00 AM Reporting Lab: [place] [address] [facility] [address] Performing Lab: [address] [address] CREATININE 1.16 mg/dL 0.7-1.3 UREA NITROGEN 21.3 mg/dL 9.0-25.0 GLUCOSE 101 mg/dL H 72-99 SODIUM 133 meq/L L 136-145 POTASSIUM 4.4 meq/L 3.5-5 CHLORIDE 100 meq/L 98-107 CARBON DIOXIDE 21 meq/L L 22-31 CALCIUM 9.4 mg/dL 8.4-10.4 EGFR (CKD-EPI 2020) 64.5 >60 Nov 19, 2024 11:54 AM [facility] CBC BLOOD Specimen Type: BLOOD Comment: SCAN OF SLIDE AGREES WITH AUTOMATED DIFF Ordering Provider: JEFFERSON VITAL Report Released Date/Time: Nov 19, 2024 11:44 AM Reporting Lab: [address] [address] Performing Lab: [address] [address] WBC 11.2 10*3/uL 3.6-11.2 RBC 3.49 10*6/uL [...] 0.00-0. 20 Nov 19, 2024 11:54 AM [facility] BASIC METABOLIC PANEL PLASMA Specimen Type: PL ASMA Comment: No hemolysis noted. Ordering Provider: JEFFERSON VITAL Report Released Date/Time: Nov 19, 2024 11:44 AM Reporting Lab: [place] [address] [facility] [address] Performing Lab: [address] [address] CREATININE 1.15 mg/dL 0.7-1.3 UREA NITROGEN 23.4 mg/dL 9.0-25.0 GLUCOSE 107 mg/dL H 72-99 SODIUM 132 meq/L L 136-145 POTASSIUM 4.1 meq/L 3.5-5 CHLORIDE 101 meq/L 98-107 CARBON DIOXIDE 23 meq/L 22-31 CALCIUM 9.2 mg/dL 8.4-10.4 EGFR (CKD-EPI 2020) 65.1 >60 Nov 18, 2024 06:00 PM [facility] MRSA SURVL NARES DNA NARES Specimen Type: [...] epidemiological information for final interpretation. Ordering Provider: DARRON WEBB Report Released Date/Time: Nov 18, 2024 03:43 PM Reporting Lab: [facility] [address] [facility] [address] Performing Lab: [address] [address] MRSA SURVL NARES DNA Negative Negative Nov 16, 2024 08:28 AM [facility] TSH W/ REFLEX FT4 (STL) PLASMA Specimen Type: PLASMA No comment entered. Ordering Provider: ALONDRA BRYANT Report Released Date/Time: Nov 01, 2024 04:02 PM Reporting Lab: [address] [address] Performing Lab: [address] [address] TSH 1.991 u[IU]/mL 0.47-5 Nov 16, 2024 08:28 AM [facility] BASIC METABOLIC PANEL PLASMA Specimen Type: PL ASMA Comment: No hemolysis noted. Ordering Provider: ALONDRA BRYANT Report Released Date/Time: Nov 01, 2024 04:02 PM Reporting Lab: [address] [address] Performing Lab: [address] [address] CREATININE 1.02 mg/dL 0.7-1.3 UREA NITROGEN 14.7 mg/dL 9.0-25.0 GLUCOSE 98 mg/dL 72-99 SODIUM 134 meq/L L 136-145 POTASSIUM 4.2 meq/L 3.5-5 CHLORIDE 100 meq/L 98-107 CARBON DIOXIDE 24 meq/L 22-31 CALCIUM 9.5 mg/dL 8.4-10.4 EGFR (CKD-EPI 2020) 75.2 >60 Nov 01, 2024 12:05 PM [facility] URINALYSIS (STL-PB) URINE Specimen Type: URIN E No comment entered. Ordering Provider: PERFECTO BOLES Report Released Date/Time: Oct 27, 2024 10:25 AM Reporting Lab: [address] [address] Performing Lab: [address] [address] URINE COLOR Light-Yellow Yellow U.BILIRUBIN Negative mg/dL Negative U.PH 6.5 5.0-8.0 APPEARANCE Clear Clear U.NITRITE Negative mg/dL Negative URN.GLUCOSE Normal mg/dL Negative URN.PROTEIN Negative mg/dL URN.UROBILINOGEN Normal mg/dL Normal URN.BLOOD Negative mg/dL Negative-Trace URN.KETONES Negative mg/dL Negative-Trac e URN.LEUK.EST. Negative mg/dL Negative-Tr sweta URN.SPECIFIC GRAVITY 1.012 Nov 01, 2024 12:05 PM [facility] URINE DRUG SCREEN (STL) URINE Specimen Type: URINE Comment: The cut-off value for Fentanyl was laboratory developed and its performance characteristics confirmed by the [facility] laboratory thru method comparison with reference laboratory and medication chart review. The laboratory is regulated under CLIA as qualified to perform high-complexity testing. Fentanyl is used for clinical purposes in conjunction with other laboratory tests. Ordering Provider: PERFECTO BOLES Report Released Date/Time: Oct 27, 2024 10:25 AM Reporting Lab: [address] [address] Performing Lab: [address] [address] ETHANOL <10 mg/dL 0-9 AMPHET/METHAMPHETAMINE Negative ng/mL COCAINE METABOLITES Negative ng/mL BENZODIAZEPINES (STL) Negative ng/mL CANNABINOIDS Negative ng/mL METHADONE Negative ng/mL OPIATES Negative ng/mL CREATININE URINE/OTHERS 68.8 mg/dL 63-16 6 OXYCODONE ([id number]) Negative ng/mL BUPRENORPHINE (STL-PB-MA) Negative ng/mL FENTANYL (STL) Negative ng/mL Nov 01, 2024 12:05 PM [facility] BASIC METABOLIC PANEL PLASMA Specimen Type: PL ASMA Comment: No hemolysis noted. Ordering Provider: ANDER LONGO Report Released Date/Time: Nov 01, 2024 11:45 AM Reporting Lab: [address] [address] Performing Lab: [address] [address] CREATININE 1.03 mg/dL 0.7-1.3 UREA NITROGEN 16.5 mg/dL 9.0-25.0 GLUCOSE 93 mg/dL 72-99 SODIUM 129 meq/L L 136-145 POTASSIUM 3.6 meq/L 3.5-5 CHLORIDE 98 meq/L 98-107 CARBON DIOXIDE 23 meq/L 22-31 CALCIUM 8.7 mg/dL 8.4-10.4 EGFR (CKD-EPI 2020) 74.4 >60 Oct 27, 2024 10:29 AM [facility] HGA1C BLOOD Specimen Type: BLOOD No comment entered. Ordering Provider: PERFECTO BOLES Report Released Date/Time: Oct 27, 2024 10:25 AM Reporting Lab: [facility] [address] [facility] [address] Performing Lab: [facility] [address] [place] [address] HGA1C 5.9 4.0-6.0 Oct 27, 2024 10:29 AM [facility] VITAMIN D, 25-HYDROXY SERUM Specimen Type: SE RUM No comment entered. Ordering Provider: PERFECTO BOLES Report Released Date/Time: Oct 27, 2024 10:25 AM Reporting Lab: [facility] [address] [facility] [address] Performing Lab: [facility] [address] [facility] [address] VITAMIN D, 25-HYDROXY 24.1 ng/mL L 30-96 Oct 27, 2024 10:29 AM [facility] PT/INR NEW (STL-MA) PLASMA Specimen Type: PLAS MA No comment entered. Ordering Provider: PERFECTO BOLES Report Released Date/Time: Oct 27, 2024 10:25 AM Reporting Lab: [facility] [address] [facility] [address] Performing Lab: [facility] [address] [facility] [address] PROTIME 11.3 s 9.4-12.5 INR VALUE 1.0 {INR} Oct 27, 2024 10:29 AM [facility] COMPREHENSIVE METABOLIC PANEL PLASMA Specimen Type: PLASMA Comment: No hemolysis noted. Ordering Provider: PERFECTO BOLES Report Released Date/Time: Oct 27, 2024 10:25 AM Reporting Lab: [address] [address] Performing Lab: [address] [address] CREATININE 0.99 mg/dL 0.7-1.3 UREA NITROGEN 17.9 [...] 78.0 >60 Oct 27, 2024 10:29 AM [facility] CBC BLOOD Specimen Type: BLOOD No comment entered. Ordering Provider: PERFECTO BOLES Report Released Date/Time: Oct 27, 2024 10:25 AM Reporting Lab: [address] [address] Performing Lab: [address] [address] WBC 4.8 10*3/uL 3.6-11.2 RBC 4.34 10*6/uL [...] Source Nov 19, 2024 01:44 PM 9 [facility] Nov 19, 2024 10:40 AM 5 [facility] Nov 19, 2024 09:35 AM 73 138/57 18 98 3 [facility] Nov 19, 2024 08:55 AM 8 [facility] Nov 19, 2024 08:51 AM 8 [facility] Advance Directives: All historical and current Section Date Range: From patient's date of to the date document was created. This section includes ALL of a patient's completed or amended [place] Advance and Rescinded Directives. The entries below indicate that a directive exists for the patient, but an actual copy is not included with this document. The data comes from all [place] facilities. Date Advance Directives Provider Source Jun 12, [address] [facility] December 24, 2011 ADVANCE DIRECTIVE DISCUSSION TOMMY VAZQUEZ [facility] Radiology Reports: +/- 30 days [...] the Encounter. The data comes from all [place] treatment facilities. Date/Time Radiology Report Provider Source Nov 18, 2024 02:12 PM KNEE,RIGHT,1 OR 2 VIEWS: JOYCELYN SEPULVEDA [id number] -1945 M Exm Date: NOV 18, 2024@14:12 Req Phys: DARRON WEBB Loc: 5C PCU -/11-19-2024@07:05 [facility] Loc: -MAIN RADIOLOGY SUITE Service: Unknown [address] [address] (Case [id number] COMPLETE) KNEE,RIGHT,1 OR 2 VIEWS (RAD Detailed) CPT:72839 Proc Modifiers : OR, RIGHT, AP & LAT Reason for Study: postop in OR R TKA Clinical History: Do films need to be ortho templated printed? No Report Status: Verified Date Reported: NOV 19, 2024 Date Verified: NOV 19, 2024 Cnc Machinist E-Sig:/ES/Kuldip Decker MD Report: FINDINGS: Right knee replacement is noted and position appears satisfactory. Impression: Right knee replacement shows satisfactory position. Primary Interpreting Staff: Kuldip Decker MD, Radiologist (Cnc Machinist) /QMB KULDIP DECKER [facility] Nov 01, 2024 09:58 AM NM MYOCARDIAL P SP ECT STRESS/REST-P: JOYCELYN SEPULVEDA [id number] -1945 M Exm Date: NOV 01, 2024@09:58 Req Phys: SUSANNA HILLS Loc: -CARDIO E-CONSULT (Req'g Loc Img Loc: -NUCLEAR MEDICINE Service: Unknown [address] [address] (Case [id number] COMPLETE) NM MYOCARDIAL PERF SPECT STRESS/R(NM Detailed) CPT:65970 Reason for Study: Pre-op Assessment' (Case 1429 COMPLETE) TC-99M TETROFOSMIN (MYOVIEW) (NM Detailed) CPT:A9502 (Case 1430 COMPLETE) TC-99M TETROFOSMIN (MYOVIEW), PE(NM Detailed) CPT:A9502 (Case 1431 COMPLETE) NON-HEU TC-99M ADD-ON PER STUDY D(NM Detailed) CPT:Q9969 (Case 1737 COMPLETE) REGADENOSON INJECTION (NM Detailed) CPT:J2785 Clinical History: Pre-op Assessment Report Status: Verified Date Reported: NOV 01, 2024 Date Verified: NOV 01, 2024 Cnc Machinist E-Sig:/ES/Bon Castro MD,PhD Report: PATIENT NAME: JOYCELYN SEPULVEDA CASE #: [id number], [id number], [id number], [id number], [id number] EXAMINATION: Rest/Lexiscan Stress Gated SPECT Myocardial Imaging [...] Interpreting Resident: RADHA PROCTOR MD /BON Ruelas [facility] Pathology Reports: +/- 30 days of [...] the Encounter. The data comes from all [facility] facilities. Date/Time Pathology Report Provider Source [...] x 3.0 cm for soft tissue fragments. Supervisor [employer] sections are submitted, following decalcification in RDO, in two cassettes A1-A2 MICROSCOPIC EXAM: ([place]) Microscopic examination of the sections submitted from right knee bone shows variable loss of articular cartilage with fibrillation and splitting. DIAGNOSIS: RIGHT KNEE BONE, RIGHT TOTAL KNEE ARTHROPLASTY: DEGENERATIVE CHANGES /es/ NECAT Umu RIVERS Pathologist Signed Nov 22, 2024@12:56 Performing Laboratory: Surgical Pathology Report Performed By: [address] CLIA# [id number] [address] [facility] [address] [place] [address] $FTR - - - - - - - - - - - - - - - - - - - - - - - - - - - - - - - - - - - - - - - - (End of report) STUART RIVERS MD [facility] Date Nov 22, 2024 - - - - - - - - - - - - - - - - - - - - - - - - - - - - - - - - - - - - - - - - JOYCELYN SEPULVEDA A STANDARD FORM 515 ID:[id number] SEX:M :1945 AGE: 78 LOC:APFEE PCP: Alondra Bryant /brianda/ STUART RIVERS Pathologist Signed: 11/22/2024 12:56 STUART RIVERS [facility] Encounter Notes: All associated encounter notes This section contains the clinical notes associated to the Encounter. Date/Time Encounter Note(s) Provider Source Nov 19, 2024 09:00 AM PHYSICAL THERAPY C ONSULT: LOCAL TITLE: PT CONSULT STL STANDARD TITLE: PHYSICAL THERAPY CONSULT DATE OF NOTE: NOV 19, 2024@09:00 ENTRY DATE: NOV 19, 2024@11:24:37 AUTHOR: MIHAI MUHAMMAD EXP COSIGNER: URGENCY: STATUS: COMPLETED PT CONSULT STL Has ADDENDA PHYSICAL THERAPY INITIAL EVALUATION: Mihai Muhammad DPT Provisional Dx: pain in R knee (ICD-10-CM M25.561) Requesting Provider: Darron Webb Reason for Request:post-surgical care for otrhopedic condition R TKA PRECAUTIONS: WBAT L LE Activity order: ad ayanna -Other people involved in treatment [x]None []Included: Length of Visit: Evaluation: __x_Low ___Mod ___ High Treatment:low complexity eval, 1 therex, 1 theract Evaluation Date: 11/19/24 Visit #1 # of refusals:0 HISTORY OF PRESENT ILLNESS: Patient presents for scheduled R TKA. PMH/PSH: 1) HTN - Hypertension ([facility] [id number]) 2) Hyperlipidemia ([facility] [id number]) 3) Sleep apnoea 4) H/O: Stroke ([facility] [id number]) 5) B-cell lymphoma 6) Anxiety ([facility] [id number]) 7) Depression ([facility] [id number]) 8) Chronic kidney disease 9) Pes planus 10) Chronic post-traumatic stress disorder 11) Exposure to potentially hazardous substance 12) History of malignant neoplasm of skin SOCIAL HISTORY/PRIOR LEVEL OF FUNCTION *Information provided by: Pt and pt's Home environment: [facility] Assistance at home: pt's , providing supervision/CGA for transfers and ambulation at PLOF; ambulating household distances at PLOF with SBQC and using 3 wheeled bike/scooter for commmunity distance; able to provide 24/7 SPV Home equipment: SBQC, scooter, golf cart ADLs: assisting IADLs: wice assisting Vocation: did not obtain Mobility: providing supervision/CGA for transfers and ambulation at PLOF; ambulating household distances at PLOF with SBQC and using 3 wheeled bike/scooter for commmunity distance History of falls: yes 4 falls in the past month SUBJECTIVE: Pt verbally agreeable to PT evaluation. Pt goals: Recovery. Walking on my own. COGNITION/COMMUNICATION: alert and oriented in all spheres, verbose and minimally tangential in conversation Barriers to learning: increased distractability, responds positively to gentle cueing PAIN: 09/12 Location: R knee Quality: aching Pain intervention: ice pack applied during therex and reapplied post ambulation Abbreviations: WFL=Within Functional Limits; (I)=Independent; A=Assist; A/PROM=Act.Rom/Passive ROM; STR=Strength; SUP=Supervision; NT=Not Tested; VC=Verbal Cues; MEDICAL LEGAL INVESTIGATOR=Prior To Admission; [facility]; CGA=Contact Guard Assist OBJECTIVE: SBAR c/RN prior to evaluation. Pt received sitting in recliner. LDA: PIV VITALS: Position BP HR O2 Pre-Activity sitting 142/64 HR 72, SpO2 98%, pt asymptomatic Position Change sitting EOB post ambulation: 18/64 HR 72, pt asymptomatic ROM: grossly WFL's in all extremities except L UE, limited shoulder flex and abd to ~45d STRENGTH: grossly 4/5 in bilateral UE's LEs R L Hip flexion 3 3+ abduction 3 3 Knee extension 3- 3 flexion 3- 3 Ankle Dorsiflexion 4 2+ Plantarflexion 4 2+ NEURO: Sensation: light touch intact in all 4 extremities Tone/Motor Control: grossly WFL's throughout Proprioception: NT Coordination: NT Special Tests/Outcome Measures: NT FUNCTIONAL MOBILITY: Rolling: SBA, increased time required for performance Supine <-> sit: SBA, increased time required for performance; HOB elevated 30d; dons L knee brace per pt request in supine prior to ambulation( educated regarding donning/doffing technique) Scooting: SBA, increased time for performance Transfer bed <-> chair performed 3x during session: CGA-min to control posturing when turning to sit, cues for hand placement and RW management; pt's korino's appropriate level of assist and safe pt handling post edu Sit <-> stand performed 3x during session: CGA-min during sit>stand from low bed, assist to aid in rise + cues for hand placement and RW management; pt's korino's appropriate level of assist and safe pt handling post edu Gait: pt ambulates 100'x2 w CGA for increased safety; pt corrects for anterolateral posturing w/o LOB or assist, cues to stand closer to RW for improved balance and upright posture; pt's korino's appropriate level of assist and safe pt handling post edu -gait pattern/deviations: decreased L foot clearance, reduced B LE step length, increased R knee flex in stance, increased trunk and hip flex w increased B UE WB onto RW, reduced gait speed W/C mobility: NT Stairs: NT d/t reduced balance and strength, did not perform at PLOF *Gait belt donned for safety* ENDURANCE: Dyspnea Scale: [x] +1 mild, noticeable to patient but not observer [] +2 mild, some difficulty, noticeable to observer [] +3 moderate difficulty, but can continue [] +4 severe difficulty, cannot continue Interventions: [x]Therapeutic Exercise supine HEP for improved strength and ROM necessary for return to mobility at PLOF (handout provided- pt and pt's educated regarding performance): ankle pumps x20 bilat, SLR 2x10 R LE, heel slides x15 R LE, hip abd/add R LE x15, quad sets w heel prop (5 sec hold w cues for ventilation) x15 [x]Therapeutic Activity Rolling: SBA, increased time required for performance Supine <-> sit: SBA, increased time required for performance; HOB elevated 30d; dons L knee brace per pt request in supine prior to ambulation( educated regarding donning/doffing technique) Scooting: SBA, increased time for performance Transfer bed <-> chair performed 3x during session: CGA-min to control posturing when turning to sit, cues for hand placement and RW management; pt's korino's appropriate level of assist and safe pt handling post edu Sit <-> stand performed 3x during session: CGA-min during sit>stand from low bed, assist to aid in rise + cues for hand placement and RW management; pt's korino's appropriate level of assist and safe pt handling post edu []Neuromuscular Re-education []Gait training []Balance training [x]EDUCATION: Pt/family member demonstrated understanding of education/instructions. Pt given 1:1 instruction on: _X__Purpose of PT _X__ findings of evaluation, POC, goals, DC plan per assessment ___ cardiac condition ___body/back mechanics ___TKA/HAWA ___Gait ___Falls ___ Equip use/care ___ Exercise program ___respiratory exercises/effective cough ___ Weightbearing status _x__ education regaring need for assist with all aspects of mobility upon DC and while in acute care and asking for assistance with transfers Pt left sitting in recliner w B LEs elevated and R knee in extension with ice pack on. Call light within reach with all needs met Assessment: Pt is a 78 year-old male admitted to [facility] on 11/18/2024 for R TKA. Pt referred to PT for evaluation on 11/19/2024. Patient tolerated treatment session well as gait training and HEP initiated on this date. Pt will benefit from skilled PT to maximize functional mobility while in acute care. Upon DC, pt would benefit from 23/02 supervision and assistance with all mobility which pt's can provide as she has been educated on safe pt handling techniques. He would benefit from f/u therapy via services upon DC. DISCHARGE RECOMMENDATION: []Low Intensity Inpatient Rehabilitation []Comprehensive Inpatient Rehabilitation []24/ Care []24/ Supervision [x]Home with []No further needs []Consult to [facility] for a virtual correction Visit []consult to Occupational Therapy [place] [facility] Home Safety Eval [x]Home Health PT- Community [facility]- [facility] [x]Prior Level of Assist ( assisting 23/02 at PLOF) []Outpatient PT []Assist for IADLs []Physiatry Consult to Outpatient PMR Service - indicated for post-ICU stay, post Stroke, post amputation and other medical diagnosis requiring commercial art instructor physical medicine and rehabilitation services as an outpatient []Other: Fowler Email Address for Virtual Visit: _ Equipment Issued: RW and gait belt. Problems: complicating co-morbidities decreased independence with functional mobility decreased endurance compromised balance decreased tolerance to activity compromised safety with mobility Goals (short term, 5-7 visits): 1. Pt will transition supine <> sit mod I 2. Pt will transfer from sit <> stand CGA and AAD 3. Pt will ambulate 100' w SBA and AAD <*><*><*> GG MOBILITY ASSESSMENT ITEMS <*><*><*> --- --- --- --- --- --- --- --- --- --- --- --- --- --- --- <> SECTION A THROUGH G: ADMISSION GOAL DISCHARGE A. ROLL LEFT AND RIGHT....: [4] [6] [] B. SIT TO LYING...........: [4] [6] [] C. LYING TO SITTING ON SIDE OF BED............: [4] [6] [] D. SIT TO STAND...........: [3] [4] [] E. CHAIR/[id number]-[id number] TRANSFER...............: [3] [4] [] F. TOILET TRANSFER........: [] [] [] G. CAR TRANSFER...........: [] [] [] --- --- --- --- --- --- --- --- --- --- --- --- --- --- --- <> SECTION I THROUGH O ONLY IF THE Pt. IS WALKING: ADMISSION GOAL DISCHARGE I. WALK 10 FEET...........: [4] [6] [] J. WALK 50 FEET W. 2 TURNS: [4] [6] [] K. WALK 150 FEET*.........: [88] [4] [] L. WALKING 10 FEET ON UNEVEN SURFACE.........: [] [] [] M. 1 STEP (CURB)*.........: [] [] [] N. 4 STEPS*...............: [] [] [] O. 12 STEPS*..............: [] [] [] P. PICKING UP OBJECT*.....: [] [] [] --- --- --- --- --- --- --- --- --- --- --- --- --- --- --- <> SECTION R THROUGH S SCORE ONLY IF CLIENT USES WC: [] MANUAL; [] MOTORIZED R. WHEEL 50 FEET W. 2 TURNS: [] [] [] S. WHEEL 150 FEET..........: [] [] [] --- --- --- --- --- --- --- --- --- --- --- <> SCORING OF THE GG MOBILITY ITEMS: 6: INDEPENDENTPATIENT/RESIDENT SAFELY COMPLETES THE ACTIVITY BY THEMSELVES WITH NO ASSISTANCE FROM A HELPER. 5. SETUP OR CLEANUP ASSISTANCEHELPER SETS UP OR CLEANS UP; PATIENT/RESIDENT COMPLETES ACTIVITY. HELPER ASSISTS ONLY PRIOR TO OR FOLLOWING THE ACTIVITY. 4. SUPERVISION OR TOUCHING ASSISTANCEHELPER PROVIDES VERBAL CUES AND/OR TOUCHING/STEADYING AND/OR CONTACT GUARD ASSISTANCE PATIENT/RESIDENT COMPLETES ACTIVITY. ASSISTANCE MAY BE PROVIDED THROUGHOUT THE ACTIVITY OR INTERMITTENTLY. 3. PARTIAL/MODERATE ASSISTANCEHELPER DOES LESS THAN HALF THE EFFORT. HELPER LIFTS, HOLDS, OR SUPPORTS TRUNK OR LIMBS, BUT PROVIDES LESS THAN HALF THE EFFORT. 2. SUBSTANTIAL/MAXIMAL ASSISTANCEHELPER DOES MORE THAN HALF THE EFFORT. HELPER LIFTS OR HOLDS TRUNK OR LIMBS AND PROVIDES MORE THAN HALF THE EFFORT 1. DEPENDENTHELPER DOES ALL THE EFFORT. PATIENT/RESIDENT DOES NONE OF THE EFFORT TO COMPLETE THE ACTIVITY. OR, THE ASSISTANCE OF 2 OR MORE HELPERS IS REQUIRED FOR THE PATIENT/RESIDENT TO COMPLETE THE ACTIVITY. <> 07: RESIDENT REFUSED <> 09: NOT APPLICABLERESIDENT DID NOT PERFORM THIS ACTIVITY PRIOR TO CURRENT INJURY, EXACERBATION, OR INJURY. <> 10: NOT ATTEMPTEDDUE TO ENVIRONMENTAL LIMITATIONS. <> 88: NOT ATTEMPTEDDUE TO MEDICAL CONDITION AND SAFETY CONCERNS. --- --- --- --- --- --- --- --- --- --- --- --- --- --- --- P.T. Prognosis: __POOR- Limited potential for improvement.* __GUARDED- There exists a question of the potential for improvement secondary to any of the above questions.* __FAIR- Presents with the potential to improve in some areas while other deficits may remain unchanged.* _x_GOOD- Presents with the potential to improve to a level of functional independence, though may continue to demonstrate certain minimal limitations. __EXCELLENT- Presents with the potential to fully recover with no residual deficits. 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 -> reduced attention -> increased R knee pain -> decreased strength -> reduced activity tolerance Total number of elements examined: 5 including -> Strength -> Neurological Influence -> Balance -> Functional Mobility -> Vital Signs Pts CLINICAL PRESENTATION was: [x] Stable and/or Uncomplicated: [] Evolving Clinical Presentation with Changing Clinical Characteristics: [] Unstable and Unpredictable Characteristics: Therefore the level of complexity for this patient was: [x] Low, [] Moderate, [] High If this is the last PT intervention then this documentation serves at the discharge Note as well. /brianda/ MIHAI MUHAMMAD Physical Therapist Signed: 11/19/2024 11:49 11/19/2024 ADDENDUM STATUS: COMPLETED length of visit: [id number] (46 minutes) /jemma MUHAMMAD Physical Therapist Signed: 11/19/2024 13:14 MIHAI MU[facility]AMMAD [facility]
--- OUTSIDE RECORDS SUMMARY | 2024-11-30 05:00 | XMS_ITS ---
Author Name [facility] [facility] [place] [facility] [place] Address [address] [place] [address] Care Team Providers Care Honing Job Setter Name Role Phone KOLE GARY Primary Care [...] Patient's Relationship to Policy Wiseman AUNG GOLD [facility] (WNR) MEDICARE ADVANTAGE [facility] (WNR) Aug 03, 2017 [facility] (WN) [id number] [phone] FR RAE SEPULVEDA PATIENT [employer] MCR (WNR) MEDICARE ADVANTAGE MCR (WNR) December 01, 2022 [id number] [phone] FR COCO RAE PATIENT [employer] MCR (WNR) MEDICARE ADVANTAGE MCR (WNR) December 01, 2022 [id number] [phone] FR COCO ANK PATIENT [employer] MCR (WNR) MEDICARE ADVANTAGE [facility] ( WNR) December 01, 2022 [id number] [phone] FR COCO RAE PATIENT [employer] MCR (WNR) MEDICARE ADVANTAGE [facility] (WNR) Aug 03, 2021 [id number] [phone] FR RAE SEPULVEDA PATIENT [employer] MCR (WNR) MEDICARE ADVANTAGE [facility] (WNR) Aug 03, 2017 [id number] [phone] FR RAE SPEULVEDA PATIENT [employer] MCR (WNR) MEDICARE ADVANTAGE [facility] (WNR) Aug 03, 2017 [id number] [phone] FR RAE SEPULVEDA PATIENT Selected Encounter This section includes the information on record at [place] for the Encounter. Date/Time Encounter Type Encounter Description Reason Provider Source Nov 30, 2024 10:00 AM PT EDUCATION NOC INDIVID CAREGIVER SUPPORT PROGRAM ICD-10-CM Z65.9 Problem related to unspecified psychosocial circumstances JAVIER PATRICK Encounter Template Text not used by [place] Assessments - Encounter Diagnoses This section includes the primary and secondary diagnoses documented for the Encounter. Date/Time Primary/Secondary Diagnosis Diagnosis Name Provider Source Nov 30, 2024 10:30 AM PRIMARY Problem related to unspecified psychosocial circumstances MEENAKSHI WRIGHT [facility] Plan of Treatment: Future Appointments (+ 6 months) and Future Tests (+/- 45 days) The Plan of Treatment section includes future care activities for the patient from all [place] [facility]. This section includes future appointments and future orders which are active, pending or scheduled. Future Appointments This section includes appointments that were scheduled to occur 6 months from the date of the Encounter, up to a maximum of 20 appointments. The data comes from all [place] treatment facilities. Appointment Date/Time Appointment Type Appointme nt Facility Name December 05, 2024 09:30 AM AMBULATORY - MEDICINE [facility] December 12, 2024 09:30 AM AMBULATORY - MEDICINE [facility] December 12, 2024 02:00 PM AMBULATORY - REHAB MEDICIN E [facility] December 13, 2024 11:00 AM AMBULATORY - SURGERY [facility] December 14, 2024 10:00 AM AMBULATORY - SURGERY [facility] December 19, 2024 09:30 AM AMBULATORY - MEDICINE [facility] December 19, 2024 11:00 AM AMBULATORY - REHAB MEDICIN E [facility] December 28, 2024 02:45 PM AMBULATORY - MEDICINE [facility] Jan 02, 2025 10:30 AM AMBULATORY - REHAB MEDICIN E [facility] Jan 09, 2025 09:30 AM [facility] Jan 09, 2025 10:30 AM AMBULATORY - NONE [facility] Jan 10, 2025 09:00 AM AMBULATORY - MEDICINE [facility] Jan 11, 2025 02:00 PM AMBULATORY - REHAB MEDICIN E [facility] Jan 16, 2025 09:30 AM AMBULATORY - MEDICINE [facility] Jan 18, 2025 09:30 AM AMBULATORY - REHAB MEDICIN E [facility] Jan 18, 2025 10:30 AM AMBULATORY - SURGERY [facility] Jan 23, 2025 09:30 AM AMBULATORY - MEDICINE [facility] Jan 25, 2025 10:30 AM AMBULATORY - REHAB MEDICIN E [facility] Jan 30, 2025 09:00 AM AMBULATORY - REHAB MEDICIN E [facility] Jan 30, 2025 09:30 AM AMBULATORY - MEDICINE [facility] Active, Pending, and Scheduled Orders This section includes a listing of several types of active, pending, and scheduled orders, including clinic medications orders, diagnostic test orders, procedure orders and consult orders; where the start date of the order is 45 days before the date of the Encounter or 45 days after the date of theEncounter. The data comes from all [place] treatment [facility]. Test Date/Time Test Type Test Details Facility Name Oct 27, 2024 12:00 AM Laboratory - Blood Bank Order TYPE & SCREEN - LAB BLOOD SP [facility] Nov 18, 2024 06:00 AM Laboratory - Blood Bank Order TYPE & SCREEN - LAB BLOOD STAT WC [facility] Lab Results: +/- 30 days [...] Nov 19, 2024 06:00 AM Reporting Lab: [address] [address] Performing Lab: [address] [address] CREATININE 1.16 mg/dL 0.7-1.3 UREA NITROGEN 21.3 [...] Nov 19, 2024 11:44 AM Reporting Lab: [address] [address] Performing Lab: [address] [address] CREATININE 1.15 mg/dL 0.7-1.3 UREA NITROGEN 23.4 mg/dL 9.0-25.0 GLUCOSE 107 mg/dL H 72-99 SODIUM 132 meq/L L 136-145 POTASSIUM 4.1 meq/L 3.5-5 CHLORIDE 101 meq/L 98-107 CARBON DIOXIDE 23 meq/L 22-31 CALCIUM 9.2 mg/dL 8.4-10.4 EGFR (CKD-EPI 2020) 65.1 >60 Nov 19, 2024 11:54 AM [facility] CBC BLOOD Specimen Type: BLOOD Comment: SCAN OF SLIDE AGREES WITH AUTOMATED DIFF Ordering Provider: JEFFERSON VITAL Report Released Date/Time: Nov 19, 2024 11:44 AM Reporting Lab: [address] [address] Performing Lab: [address] [address] WBC 11.2 10*3/uL 3.6-11.2 RBC 3.49 10*6/uL [...] Nov 18, 2024 03:43 PM Reporting Lab: [address] [address] Performing Lab: [address] [place] [address] MRSA SURVL NARES DNA Negative Negative Nov 16, 2024 08:28 AM [facility] TSH W/ REFLEX FT4 (STL) PLASMA Specimen Type: PLASMA No comment entered. Ordering Provider: ALONDRA BRYANT Report Released Date/Time: Nov 01, 2024 04:02 PM Reporting Lab: [address] [address] Performing Lab: [address] [address] TSH 1.991 u[IU]/mL 0.47-5 Nov 16, 2024 08:28 AM [facility] BASIC METABOLIC PANEL PLASMA Specimen Type: PL ASMA Comment: No hemolysis noted. Ordering Provider: ALONDRA BRYANT Report Released Date/Time: Nov 01, 2024 04:02 PM Reporting Lab: [address] [address] Performing Lab: [address] [address] CREATININE 1.02 mg/dL 0.7-1.3 UREA NITROGEN 14.7 mg/dL 9.0-25.0 GLUCOSE 98 mg/dL 72-99 SODIUM 134 meq/L L 136-145 POTASSIUM 4.2 meq/L 3.5-5 CHLORIDE 100 meq/L 98-107 CARBON DIOXIDE 24 meq/L 22-31 CALCIUM 9.5 mg/dL 8.4-10.4 EGFR (CKD-EPI 2020) 75.2 >60 Nov 01, 2024 12:05 PM [facility] URINE DRUG SCREEN (STL) URINE Specimen Type: URINE Comment: The cut-off value for Fentanyl was laboratory developed and its performance characteristics confirmed by the [facility] laboratory thru method comparison with reference laboratory and medication chart review. The laboratory is regulated under CLIA as qualified to perform high-complexity testing. Fentanyl is used for clinical purposes in conjunction with other laboratory tests. Ordering Provider: PERFECTO BOLES Report Released Date/Time: Oct 27, 2024 10:25 AM Reporting Lab: [address] [address] Performing Lab: [address] [address] ETHANOL <10 mg/dL 0-9 AMPHET/METHAMPHETAMINE Negative ng/mL COCAINE METABOLITES Negative ng/mL BENZODIAZEPINES (STL) Negative ng/mL CANNABINOIDS Negative ng/mL METHADONE Negative ng/mL OPIATES Negative ng/mL CREATININE URINE/OTHERS 68.8 mg/dL 63-16 6 OXYCODONE (DJGYS-KDJ-YP) Negative ng/mL BUPRENORPHINE (STL-PB-MA) Negative ng/mL FENTANYL (STL) Negative ng/mL Nov 01, 2024 12:05 PM [facility] URINALYSIS (L-PB) URINE Specimen Type: URIN E No comment entered. Ordering Provider: PERFECTO BOLES Report Released Date/Time: Oct 27, 2024 10:25 AM Reporting Lab: [address] [address] Performing Lab: [address] [address] URINE COLOR Light-Yellow Yellow U.BILIRUBIN Negative mg/dL Negative U.PH 6.5 5.0-8.0 APPEARANCE Clear Clear U.NITRITE Negative mg/dL Negative URN.GLUCOSE Normal mg/dL Negative URN.PROTEIN Negative mg/dL URN.UROBILINOGEN Normal mg/dL Normal URN.BLOOD Negative mg/dL Negative-Trace URN.KETONES Negative mg/dL Negative-Trac e URN.LEUK.EST. Negative mg/dL Negative-Tr sweta URN.SPECIFIC GRAVITY 1.012 Nov 01, 2024 12:05 PM [facility] BASIC METABOLIC PANEL PLASMA Specimen Type: PL ASMA Comment: No hemolysis noted. Ordering Provider: ANDER LONGO Report Released Date/Time: Nov 01, 2024 11:45 AM Reporting Lab: [address] [address] Performing Lab: [address] [address] CREATININE 1.03 mg/dL 0.7-1.3 UREA NITROGEN 16.5 mg/dL 9.0-25.0 GLUCOSE 93 mg/dL 72-99 SODIUM 129 meq/L L 136-145 POTASSIUM 3.6 meq/L 3.5-5 CHLORIDE 98 meq/L 98-107 CARBON DIOXIDE 23 meq/L 22-31 CALCIUM 8.7 mg/dL 8.4-10.4 EGFR (CKD-EPI 2020) 74.4 >60 Advance Directives: All historical and current Section Date Range: From patient's date of to the date document was created. This section includes ALL of a patient's completed or amended [place] Advance and Rescinded Directives. The entries below indicate that a directive exists for the patient, but an actual copy is not included with this document. The data comes from all [place] facilities. Date Advance Directives Provider Source Jun 12, [address] [facility] December 24, 2011 ADVANCE DIRECTIVE DISCUSSION TOMMY VAZQUEZ [facility] Radiology Reports: +/- 30 days of [...] the Encounter. The data comes from all [place] treatment facilities. Date/Time Radiology Report Provider Source Nov 18, 2024 02:12 PM KNEE,RIGHT,1 OR 2 VIEWS: JOYCELYN SEPULVEDA [id number] -1945 M Ex Date: NOV 18, 2024@14:12 Req Phys: YOVANI DUNN Pat Loc: 5C PCU [facility]E-[facility]/11-19-2024@07:05 Img Loc: [facility]MAIN RADIOLOGY SUITE Service: [address] [address] (Case [id number] COMPLETE) KNEE,RIGHT,1 OR 2 VIEWS (RAD Detailed) CPT:81686 Proc Modifiers : OR, RIGHT, AP & LAT Reason for Study: postop in OR R TKA Clinical History: Do films need to be ortho templated printed? No Report Status: Verified Date Reported: NOV 19, 2024 Date Verified: NOV 19, 2024 Hvac Journeyman E-Sig:/ES/Kuldip Decker MD Report: FINDINGS: Right knee replacement is noted and position appears satisfactory. Impression: Right knee replacement shows satisfactory position. Primary Interpreting Staff: Kuldip Decker MD, Radiologist (Hvac Journeyman) /QMB KULDIP DECKER [facility] Nov 01, 2024 09:58 AM NM MYOCARDIAL P SP ECT STRESS/REST-P: JOYCELYN SEPULVEDA [id number] -1945 M Exm Date: NOV 01, 2024@09:58 Req Phys: SUSANNA HILLS Loc: -CARDIO E-CONSULT (Req'g Loc Img Loc: -NUCLEAR MEDICINE Service: Unknown [address] [address] (Case [id number] COMPLETE) NM MYOCARDIAL PERF SPECT STRESS/R(NM Detailed) CPT:16015 Reason for Study: Pre-op Assessment' (Case 1429 COMPLETE) TC-99M TETROFOSMIN (MYOVIEW) (NM Detailed) CPT:A9502 (Case 1430 COMPLETE) TC-99M TETROFOSMIN (MYOVIEW), PE(NM Detailed) CPT:A9502 (Case 1431 COMPLETE) NON-HEU TC-99M ADD-ON PER STUDY D(NM Detailed) CPT:Q9969 (Case 1737 COMPLETE) REGADENOSON INJECTION (NM Detailed) CPT:J2785 Clinical History: Pre-op Assessment Report Status: Verified Date Reported: NOV 01, 2024 Date Verified: NOV 01, 2024 Hvac Journeyman E-Sig:/ES/Bon Castro MD,PhD Report: PATIENT NAME: JOYCELYN SEPULVEDA CASE #: [id number], [id number], [id number], [id number], [id number] EXAMINATION: Rest/Lexiscan Stress Gated SPECT Myocardial Imaging [...] Staff: Bon Castro MD,PhD, Nuclear Medicine Physician (Hvac Journeyman) Primary Interpreting Resident: RADHA PROCTOR MD /BON Ruelas [facility] Pathology Reports: +/- 30 days [...] the Encounter. The data comes from all [place] treatment facilities. Date/Time Pathology Report Provider Source [...] x 3.0 cm for soft tissue fragments. Burner Tender sections are submitted, following decalcification in RDO, in two cassettes A1-A2 MICROSCOPIC EXAM: ([place]) Microscopic examination of the sections submitted from right knee bone shows variable loss of articular cartilage with fibrillation and splitting. DIAGNOSIS: RIGHT KNEE BONE, RIGHT TOTAL KNEE ARTHROPLASTY: DEGENERATIVE CHANGES /brianda/ STUART RIVERS Pathologist Signed Nov 22, 2024@12:56 Performing Laboratory: Surgical Pathology Report Performed By: [facility] [address] [id number] [address] [address] $FTR - - - - - - - - - - - - - - - - - - - - - - - - - - - - - - - - - - - - - - - - (End of report) STUART RIVERS MD [facility] Date Nov 22, 2024 - - - - - - - - - - - - - - - - - - - - - - - - - - - - - - - - - - - - - - - - JOYCELYN SEPULVEDA A STANDARD FORM 515 ID:[id number] SEX:M :1945 AGE: 78 LOC:SHILO PCP: Alondra Bryant /brianda/ STUART RIVERS Pathologist Signed: 11/22/2024 12:[address] [facility] Encounter Notes: All associated encounter notes This section contains the clinical notes associated to the Encounter. Date/Time Encounter Note(s) Provider Source Nov 30, 2024 01:34 PM ADDENDUM: LOCAL TITLE: Addendum STANDARD TITLE: ADDENDUM DATE OF NOTE: NOV 30, 2024@13:34:20 ENTRY DATE: NOV 30, 2024@13:34:21 AUTHOR: ALONDRA BRYANT EXP COSIGNER: URGENCY: STATUS: COMPLETED OT home safety eval consult placed. This is done by video visit and requires use of a smartphone or tablet with video and audio. /brianda/ ALONDRA BRYANT Staff Physician Signed: 11/30/2024 13:35 Receipt Acknowledged By: 11/30/2024 14:04 /es/ Rashad Barrett Rn, BSN REGISTERED NURSE === --- Original Document --- 11/30/24 [facility] WELLNESS CONTACT : Caregiver Support Program PCAFC Wellness Contact This is enrolled in [place]'s Program of Comprehensive Assistance for Family Caregivers (PCAFC). While enrolled in PCAFC, wellness contacts review the [place]'s well-being, adequacy of personal care services being provided by the Family Caregiver(s), and the well-being of the Family Caregiver(s). Wellness contacts occur at a minimum of once every 120 days, and at least one visit must occur in the eligible [place]'s home on an annual basis. Date of Visit: Nov Length of visit: 20 minutes The [place]ague was identified using the following mcgill identifiers: Full Name: JOYCELYN SEPULVEDA Date of : December Full [address]: [address] [place] [address] Diagnosis: Problem Related to unspecified Psychosocial Circumstances (ICD-10- CM Z65.9) Phone #: Email address: Patient Email - [email or web address] Is the above contact information in the electronic health record and the Caregiver Support Program IT system, correct? Yes Next of Kin and Emergency Contact addresses need updated as it should also say the 's address; thank you. Reason for contact: Routine (120-day contact) Individuals providing input include: [place] Primary Family Caregiver Method of contact: Video Telehealth Contact number for backup/emergency communication: location during visit:* Home [address] [place] [phone] Others present for visit with 's consent: Name(s): Miguelina Sepulveda Montague confirms location is safe and private for visit. Telehealth Disclosure: Visit conducted by synchronous telehealth. verbal consent obtained. Location/emergency number confirmed. Environment surveyed and all participants identified. Virtual conference room locked. INFORMATION Montague is receiving care from: Primary Family Caregiver Name: Miguelina Sepulveda Have there been any changes to the individuals living in the 's household? No Have there been any changes in the 's Advance Directive for Health Care, Guardianship/Conservator, or Fiduciary status? No ASSESSMENT How has your physical/mental/emotional health been lately? Details: reports having a knee replacement. He states his health has been good otherwise. Montague reports he is pleasantly surprised at how well he is recovering to this operation. Have you experienced any changes (falls, ER visits, hospitalizations) and/or any concerns? Yes Details: states he was in the hospital one night. denies falls and ER visits. How are you coping with these changes or concerns? Details: Montague reports he is doing well and getting good reports from Physical Therapy. Montague states his leg feels very sturdy. Do you have any medication concerns? No Do you have the needed medical equipment to support you in your home? Yes Details: Montague states he was given a walker and a rollator. Montague states Caregiver purchased some grab bars; however, he states he would appreciate having a few more to help his balance. Do you feel that your care needs are being adequately met? Yes Do you have any legal or financial planning concerns? No Do you feel comfortable and safe in your home environment? Yes What goals or needs can we assist you with? Details: denies any goals or needs. Caregiver reports [place] [facility]. [place] states he is interested in riding his stationary bike and is curious what PT will say about this. SCREENING TOOLS No screening tools due or clinically indicated currently. CAREGIVER INPUT Caregiver's understanding of the 's treatment plan: Details: Caregiver reports having a great and clear understanding of the [place]'s treatment plan. Are there any supports or services the Caregiver needs to adequately meet the needs of the ? No Support services currently in place include: Other Details: reports having a PT and nurse come to his home following the operation. [facility] staff provided information on the following resources and supports: - Other [facility] Services: n/a PLAN: Follow-up needed outside of regularly scheduled [facility] Wellness Contacts: Update: is requesting a home safety evaluation with OT; please follow up, thank you. SUMMARY OF VISIT: Montague actively participated in the wellness contact conducted on [facility]. Montague was able to stay on topic and used appropriate language skills. He presented with a friendly manner and was dressed appropriate for the season. Montague reports his care needs are being met and no concerns of safety. He denies any visits to the ED, falls, and other health concerns. Montague reports having one night admitted to the hospital following his knee replacement. /jemma WRIGHT Tai Chi Instructor, Caregiver Support Program Signed: 11/30/2024 10:56 /jemma PATRICK Tai Chi Instructor, Caregiver Support Program Cosigned: 11/30/2024 12:58 11/30/2024 ADDENDUM STATUS: COMPLETED Next of Kin and Emergency Contact addresses need updated as it should also say the Montague's address; thank you. /jemma WRIGHT Tai Chi Instructor, Caregiver Support Program Signed: 11/30/2024 10:57 /jemma PATRICK Tai Chi Instructor, Caregiver Support Program Cosigned: 11/30/2024 12:49 Receipt Acknowledged By: * AWAITING SIGNATURE * LASHAE RAMON 11/30/2024 ADDENDUM STATUS: COMPLETED is requesting a home safety evaluation with OT; please follow up, thank you. /jemma WRIGHT Tai Chi Instructor, Caregiver Support Program Signed: 11/30/2024 10:58 /es/ JAVIER PATRICK Tai Chi Instructor, Caregiver Support Program Cosigned: 11/30/2024 12:49 Receipt Acknowledged By: 11/30/2024 13:29 /brianda/ ALONDRA BRYANT Staff Physician 11/30/2024 13:26 /brianda/ Rashad Barrett Rn, BSN REGISTERED NURSE 11/30/2024 ADDENDUM STATUS: COMPLETED This GERIATRIC NURSING ASSISTANT clinical pst supervisor reviewed this documentation and concurs with the information and impressions contained in this note. The services provided by the HOME HEALTH TRAVEL OT are reviewed during weekly uiri-qf-oqty supervision. The clinical supervision meets, or exceeds, supervision amounts required by the standards of both the National Association of Social Work Boards Accreditation and the [place] Committee for Social Workers. /jemma PATRICK Tai Chi Instructor, Caregiver Support Program Signed: 11/30/2024 12:58 11/30/2024 ADDENDUM STATUS: COMPLETED pt was called at the number listed in the chart. No answer vm left for him to call the clinic /brianda/ Rashad Barrett Rn, BSN REGISTERED NURSE Signed: 11/30/2024 13:[address] [facility] Nov 30, 2024 10:57 AM ADDENDUM: LOCAL TITLE: Addendum STANDARD TITLE: ADDENDUM DATE OF NOTE: NOV 30, 2024@10:57 ENTRY DATE: NOV 30, 2024@10:57:47 AUTHOR: JACQUE WRIGHT EXP COSIGNER: JAVIER PATRICK URGENCY: STATUS: COMPLETED [place] is requesting a home safety evaluation with OT; please follow up, thank you. /brianda/ JACQUE WRIGHT Tai Chi Instructor, Caregiver Support Program Signed: 11/30/2024 10:58 /brianda/ JAVIER PATRICK Tai Chi Instructor, Caregiver Support Program Cosigned: 11/30/2024 12:49 Receipt Acknowledged By: 11/30/2024 13:29 /jemma BRYANT Staff Physician 11/30/2024 13:26 /brianda/ Rashad Barrett Rn, BSN REGISTERED NURSE === --- Original Document --- 11/30/24 [facility] WELLNESS CONTACT : Caregiver Support Program [facility] Wellness Contact [place] This [place] [place] of [place] for Family Caregivers ([facility]). While enrolled in PCAFC, wellness contacts review the [place]'s well-being, adequacy of personal care services being provided by the Family Caregiver(s), and the well-being of the Family Caregiver(s). Wellness contacts occur at a minimum of once every 120 days, and at least one visit must occur in the eligible 's home on an annual basis. Date of Visit: Nov Length of visit: 20 minutes The [place] was identified using the following mcgill identifiers: Full Name: JOYCELYN SEPULVEDA Date of : [birth year] Full Address: [address] [place] [address] Diagnosis: Problem Related to unspecified Psychosocial Circumstances (ICD-10- CM Z65.9) Phone #: Email address: Patient Email - [email or web address] Is the above contact information in the electronic health record and the Caregiver Support Program IT system, correct? Yes Next of Kin and Emergency Contact addresses need updated as it should also say the [place]'s address; thank you. Reason for contact: Routine (120-day contact) Individuals providing input include: [place] Primary Family Caregiver Method of contact: Video Telehealth Contact number for backup/emergency communication: location during visit:* Home [address] [place] [address] Others present for visit with Montague's consent: Name(s): Miguelina Sepulveda Montague confirms location is safe and private for visit. Telehealth Disclosure: Visit conducted by synchronous telehealth. verbal consent obtained. Location/emergency number confirmed. Environment surveyed and all participants identified. Virtual conference room locked. INFORMATION [place] is receiving care from: Primary Family Caregiver Name: Miguelina Sepulveda Have there been any changes to the individuals living in the 's household? No Have there been any changes in the [place]'s Advance Directive for Health Care, Guardianship/Conservator, or Fiduciary status? No ASSESSMENT How has your physical/mental/emotional health been lately? Details: Tita reports having a knee replacement. He states his health has been good otherwise. reports he is pleasantly surprised at how well he is recovering to this operation. Have you experienced any changes (falls, ER visits, hospitalizations) and/or any concerns? Yes Details: Tita states he was in the hospital one night. Montague denies falls and ER visits. How are you coping with these changes or concerns? Details: Montague reports he is doing well and getting good reports from Physical Therapy. Montague states his leg feels very sturdy. Do you have any medication concerns? No Do you have the needed medical equipment to support you in your home? Yes Details: Montague states he was given a walker and a rollator. states Caregiver purchased some grab bars; however, he states he would appreciate having a few more to help his balance. Do you feel that your care needs are being adequately met? Yes Do you have any legal or financial planning concerns? No Do you feel comfortable and safe in your home environment? Yes What goals or needs can we assist you with? Details: Tita denies any goals or needs. Caregiver reports Tita has received a lot of support from [place]. [place] states he is interested in riding his stationary bike and is curious what PT will say about this. SCREENING TOOLS No screening tools due or clinically indicated currently. CAREGIVER INPUT Caregiver's understanding of the 's treatment plan: Details: Caregiver reports having a great and clear understanding of the [place]'s treatment plan. Are there any supports or services the Caregiver needs to adequately meet the needs of the [place]? No Support services currently in place include: Other Details: Tita reports having a PT and nurse come to his home following the operation. [facility] staff provided information on the following resources and supports: - Other [facility] Services: n/a PLAN: Follow-up needed outside of regularly scheduled [facility] Wellness Contacts: Update: Tita is requesting a home safety evaluation with OT; please follow up, thank you. SUMMARY OF VISIT: Tita actively participated in the wellness contact conducted on [facility]. Tita was able to stay on topic and used appropriate language skills. He presented with a friendly manner and was dressed appropriate for the season. Tita reports his care needs are being met and no concerns of safety. He denies any visits to the ED, falls, and other health concerns. [place] reports having one night admitted to the hospital following his knee replacement. /brianda/ JACQUE WRIGHT Tai Chi Instructor, Caregiver Support Program Signed: 11/30/2024 10:56 /brianda/ JAVIER PATRICK Tai Chi Instructor, Caregiver Support Program Cosigned: 11/30/2024 12:58 11/30/2024 ADDENDUM STATUS: COMPLETED Next of Kin and Emergency Contact addresses need updated as it should also say the 's address; thank you. /brianda/ JACQUE WRIGHT Tai Chi Instructor, Caregiver Support Program Signed: 11/30/2024 10:57 /brianda/ JAVIER PATRICK Tai Chi Instructor, Caregiver Support Program Cosigned: 11/30/2024 12:49 Receipt Acknowledged By: * AWAITING SIGNATURE * LASHAE RAMON 11/30/2024 ADDENDUM STATUS: COMPLETED This GERIATRIC NURSING ASSISTANT clinical pst supervisor reviewed this documentation and concurs with the information and impressions contained in this note. The services provided by the HOME HEALTH TRAVEL OT are reviewed during weekly [id number] supervision. The clinical supervision meets, or exceeds, supervision amounts required by the standards of both the National Association of Social Work Boards Accreditation and the [place] Committee for Social Workers. /brianda/ JAVIER PATRICK Tai Chi Instructor, Caregiver Support Program Signed: 11/30/2024 12:[address] [facility] Nov 30, 2024 10:56 AM ADDENDUM: LOCAL TITLE: Addendum STANDARD TITLE: ADDENDUM DATE OF NOTE: NOV 30, 2024@10:56 ENTRY DATE: NOV 30, 2024@10:56:52 AUTHOR: JACQUE WRIGHT EXP COSIGNER: JAVIER PATRICK URGENCY: STATUS: COMPLETED Next of Kin and Emergency Contact addresses need updated as it should also say the 's address; thank you. /jemma WRIGHT Tai Chi Instructor, Caregiver Support Program Signed: 11/30/2024 10:57 /brianda/ JAVIER PATRICK Tai Chi Instructor, Caregiver Support Program Cosigned: 11/30/2024 12:49 Receipt Acknowledged By: 12/01/2024 09:44 /brianda/ LASHAE RAMON Waste Water Operator === --- Original Document --- 11/30/24 [facility] WELLNESS CONTACT : Caregiver Support Program [facility] Wellness Contact [place] This [place] [facility] in [facility]'s Program of Comprehensive Assistance for Family Caregivers ([facility]). While enrolled in PCA, wellness contacts review the [place]'s well-being, adequacy of personal care services being provided by the Family Caregiver(s), and the well-being of the Family Caregiver(s). Wellness contacts occur at a minimum of once every 120 days, and at least one visit must occur in the eligible [place]'s home on an annual basis. Date of Visit: Nov Length of visit: 20 minutes The was identified using the following mcgill identifiers: Full Name: JOYCELYN SEPULVEDA Date of : [birth year] Full [address]: [address] [place] [address] Diagnosis: Problem Related to unspecified Psychosocial Circumstances (ICD-10- CM Z65.9) Phone #: Email address: Patient Email - [email or web address] Is the above contact information in the electronic health record and the Caregiver Support Program IT system, correct? Yes Next of Kin and Emergency Contact addresses need updated as it should also say the 's address; thank you. Reason for contact: Routine (120-day contact) Individuals providing input include: [place] Primary Family Caregiver Method of contact: Video Telehealth Contact number for backup/emergency communication: location during visit:* Home [address] [place] [address] Others present for visit with 's consent: Name(s): Miguelina Sepulveda confirms location is safe and private for visit. Telehealth Disclosure: Visit conducted by synchronous telehealth. [place] verbal consent obtained. Location/emergency number confirmed. Environment surveyed and all participants identified. Virtual conference room locked. INFORMATION is receiving care from: Primary Family Caregiver Name: Miguelina Sepulveda Have there been any changes to the individuals living in the [place]'s household? No Have there been any changes in the 's Advance Directive for Health Care, Guardianship/Conservator, or Fiduciary status? No ASSESSMENT How has your physical/mental/emotional health been lately? Details: Tita reports having a knee replacement. He states his health has been good otherwise. reports he is pleasantly surprised at how well he is recovering to this operation. Have you experienced any changes (falls, ER visits, hospitalizations) and/or any concerns? Yes Details: states he was in the hospital one night. [place] denies falls and ER visits. How are you coping with these changes or concerns? Details: reports he is doing well and getting good reports from Physical Therapy. states his leg feels very sturdy. Do you have any medication concerns? No Do you have the needed medical equipment to support you in your home? Yes Details: [place]ague states he was given a walker and a rollator. [place] states Caregiver purchased some grab bars; however, he states he would appreciate having a few more to help his balance. Do you feel that your care needs are being adequately met? Yes Do you have any legal or financial planning concerns? No Do you feel comfortable and safe in your home environment? Yes What goals or needs can we assist you with? Details: Tita denies any goals or needs. Caregiver reports Tita has received a lot of support from [place]. states he is interested in riding his stationary bike and is curious what PT will say about this. SCREENING TOOLS No screening tools due or clinically indicated currently. CAREGIVER INPUT Caregiver's understanding of the [place]'s treatment plan: Details: Caregiver reports having a great and clear understanding of the 's treatment plan. Are there any supports or services the Caregiver needs to adequately meet the needs of the ? No Support services currently in place include: Other Details: reports having a PT and nurse come to his home following the operation. [facility] staff provided information on the following resources and supports: - Other [facility] Services: n/a PLAN: Follow-up needed outside of regularly scheduled [facility] Wellness Contacts: Update: Tita is requesting a home safety evaluation with OT; please follow up, thank you. SUMMARY OF VISIT: [place] actively participated in the wellness contact conducted on [facility]. [place] was able to stay on topic and used appropriate language skills. He presented with a friendly manner and was dressed appropriate for the season. reports his care needs are being met and no concerns of safety. He denies any visits to the ED, falls, and other health concerns. [place] reports having one night admitted to the hospital following his knee replacement. /brianda/ JACQUE WRIGHT Tai Chi Instructor, Caregiver Support Program Signed: 11/30/2024 10:56 /jemma PATRICK Tai Chi Instructor, Caregiver Support Program Cosigned: 11/30/2024 12:58 11/30/2024 ADDENDUM STATUS: COMPLETED is requesting a home safety evaluation with OT; please follow up, thank you. /jemma WRIGHT Tai Chi Instructor, Caregiver Support Program Signed: 11/30/2024 10:58 /brianda/ JAVIER PATRICK Tai Chi Instructor, Caregiver Support Program Cosigned: 11/30/2024 12:49 Receipt Acknowledged By: 11/30/2024 13:29 /brianda/ ALONDRA BRYANT Staff Physician 11/30/2024 13:26 /brianda/ Rashad Barrett Rn, BSN REGISTERED NURSE 11/30/2024 ADDENDUM STATUS: COMPLETED This GERIATRIC NURSING ASSISTANT clinical pst supervisor reviewed this documentation and concurs with the information and impressions contained in this note. The services provided by the HOME HEALTH TRAVEL OT are reviewed during weekly [id number] supervision. The clinical supervision meets, or exceeds, supervision amounts required by the standards of both the National Association of Social Work Boards Accreditation and the [place] Committee for Social Workers. /jemma PATRICK Tai Chi Instructor, Caregiver Support Program Signed: 11/30/2024 12:58 11/30/2024 ADDENDUM STATUS: COMPLETED pt was called at the number listed in the chart. No answer vm left for him to call the clinic /jemma Barrett Rn, BSN REGISTERED NURSE Signed: 11/30/2024 13:33 11/30/2024 ADDENDUM STATUS: COMPLETED OT home safety eval consult placed. This is done by video visit and requires use of a smartphone or tablet with video and audio. /brianda/ ALONDRA BRYANT Staff Physician Signed: 11/30/2024 13:35 Receipt Acknowledged By: 11/30/2024 14:04 /brianda/ Rashad Barrett Rn, BSN REGISTERED NURSE JACQUE WRIGHT. [facility] Nov 30, 2024 10:02 AM CAREGIVER CERTIFIC ATE: LOCAL TITLE: CSP [facility] WELLNESS CONTACT STANDARD TITLE: CAREGIVER CERTIFICATE DATE OF NOTE: NOV 30, 2024@10:02 ENTRY DATE: NOV 30, 2024@10:02:45 AUTHOR: JACQUE WRIGHT EXP COSIGNER: JAVIER PATRICK URGENCY: STATUS: COMPLETED CSP [facility] WELLNESS CONTACT Has ADDENDA Caregiver Support Program [facility] Wellness Contact [place] This is [place] in [place] Program of Comprehensive Assistance for Family Caregivers ([facility]). While enrolled in [facility], wellness contacts review the 's well-being, adequacy of personal care services being provided by the Family Caregiver(s), and the well-being of the Family Caregiver(s). Wellness contacts occur at a minimum of once every 120 days, and at least one visit must occur in the eligible 's home on an annual basis. Date of Visit: Nov Length of visit: 20 minutes The was identified using the following mcgill identifiers: Full Name: JOYCELYN SEPULVEDA Date of : [birth year] Full Address: [address] [place] [address] Diagnosis: Problem Related to unspecified Psychosocial Circumstances (ICD-10- CM Z65.9) Phone #: Email address: Patient Email - [email or web address] Is the above contact information in the electronic health record and the Caregiver Support Program IT system, correct? Yes Next of Kin and Emergency Contact addresses need updated as it should also say the 's address; thank you. Reason for contact: Routine (120-day contact) Individuals providing input include: [place] Primary Family Caregiver Method of contact: Video Telehealth Contact number for backup/emergency communication: [place] location during visit:* Home [address] [place] [address] Others present for visit with [place]'s consent: Name(s): Miguelina Rivers confirms location is safe and private for visit. Telehealth Disclosure: Visit conducted by synchronous telehealth. verbal consent obtained. Location/emergency number confirmed. Environment surveyed and all participants identified. Virtual conference room locked. INFORMATION is receiving care from: Primary Family Caregiver Name: Miguelina Sepulveda Have there been any changes to the individuals living in the [place]'s household? No Have there been any changes in the 's Advance Directive for Health Care, Guardianship/Conservator, or Fiduciary status? No ASSESSMENT How has your physical/mental/emotional health been lately? Details: [place] reports having a knee replacement. He states his health has been good otherwise. [place] reports he is pleasantly surprised at how well he is recovering to this operation. Have you experienced any changes (falls, ER visits, hospitalizations) and/or any concerns? Yes Details: states he was in the hospital one night. denies falls and ER visits. How are you coping with these changes or concerns? Details: reports he is doing well and getting good reports from Physical Therapy. [place]ague states his leg feels very sturdy. Do you have any medication concerns? No Do you have the needed medical equipment to support you in your home? Yes Details: [place] states he was given a walker and a rollator. states Caregiver purchased some grab bars; however, he states he would appreciate having a few more to help his balance. Do you feel that your care needs are being adequately met? Yes Do you have any legal or financial planning concerns? No Do you feel comfortable and safe in your home environment? Yes What goals or needs can we assist you with? Details: denies any goals or needs. Caregiver reports [place] has received a lot of support from [place]. states he is interested in riding his stationary bike and is curious what PT will say about this. SCREENING TOOLS No screening tools due or clinically indicated currently. CAREGIVER INPUT Caregiver's understanding of the [place]'s treatment plan: Details: Caregiver reports having a great and clear understanding of the 's treatment plan. Are there any supports or services the Caregiver needs to adequately meet the needs of the [place]? No Support services currently in place include: Other Details: reports having a PT and nurse come to his home following the operation. [facility] staff provided information on the following resources and supports: - Other [facility] Services: n/a PLAN: Follow-up needed outside of regularly scheduled [facility] Wellness Contacts: Update: is requesting a home safety evaluation with OT; please follow up, thank you. SUMMARY OF VISIT: [place] actively participated in the wellness contact conducted on [facility]. was able to stay on topic and used appropriate language skills. He presented with a friendly manner and was dressed appropriate for the season. [place] reports his care needs are being met and no concerns of safety. He denies any visits to the ED, falls, and other health concerns. [place] reports having one night admitted to the hospital following his knee replacement. /brianda/ JACQUE WRIGHT Tai Chi Instructor, Caregiver Support Program Signed: 11/30/2024 10:56 /brianda/ JAVIER Horan Worker, Caregiver Support Program Cosigned: 11/30/2024 12:58 11/30/2024 ADDENDUM STATUS: COMPLETED Next of Kin and Emergency Contact addresses need updated as it should also say the [place]'s address; thank you. /jemma Rene, Caregiver Support Program Signed: 11/30/2024 10:57 /brianda/ JAVIER Rene, Caregiver Support Program Cosigned: 11/30/2024 12:49 Receipt Acknowledged By: * AWAITING SIGNATURE * LASHAE RAMON 11/30/2024 ADDENDUM STATUS: COMPLETED is requesting a home safety evaluation with OT; please follow up, thank you. /jemma Rene, Caregiver Support Program Signed: 11/30/2024 10:58 /brianda/ JAVIER Rene, Caregiver Support Program Cosigned: 11/30/2024 12:49 Receipt Acknowledged By: 11/30/2024 13:29 /es/ ALONDRA BRYANT Staff Physician 11/30/2024 13:26 /es/ Rashad Barrett Rn, BSN REGISTERED NURSE 11/30/2024 ADDENDUM STATUS: COMPLETED This GERIATRIC NURSING ASSISTANT clinical pst supervisor reviewed this documentation and concurs with the information and impressions contained in this note. The services provided by the HOME HEALTH TRAVEL OT are reviewed during weekly [id number] supervision. The clinical supervision meets, or exceeds, supervision amounts required by the standards of both the National Association of Social Work Boards Accreditation and the [place] Committee for Social Workers. /jemma Horan Worker, Caregiver Support Program Signed: 11/30/2024 12:58 11/30/2024 ADDENDUM STATUS: COMPLETED pt was called at the number listed in the chart. No answer vm left for him to call the clinic /brianda/ Rashad Barrett Rn, BSN REGISTERED NURSE Signed: 11/30/2024 13:33 11/30/2024 ADDENDUM STATUS: COMPLETED OT home safety eval consult placed. This is done by video visit and requires use of a smartphone or tablet with video and audio. /brianda/ ALONDRA BRYANT Staff Physician Signed: 11/30/2024 13:35 Receipt Acknowledged By: * AWAITING SIGNATURE * RASHAD BARRETT [facility]NEY [facility]
--- OUTSIDE RECORDS SUMMARY | 2024-12-12 09:00 | XMS_ITS ---
Author Name [facility] [place] [facility] [place] Address [address] [place] [address] Care Team Providers Care Ethnographic Materials Conservator Name Role Phone KOLE GARY Primary Care [...] Patient's Relationship to Policy Wiseman AUNG FREITAS [facility] (WNR) MEDICARE ADVANTAGE [facility] (WNR) Aug 03, 2017 [facility] (WN) [id number] [phone] FR RAE SEPULVEDA PATIENT [employer] [facility] (WNR) MEDICARE ADVANTAGE [facility] (WNR) December 01, 2022 [id number] [phone] FR RAE SEPULVEDA PATIENT [employer] MCR (WNR) MEDICARE ADVANTAGE [facility] (WNR) December 01, 2022 [id number] [phone] FR RAE SEPULVEDA PATIENT [employer] MCR (WNR) MEDICARE ADVANTAGE [facility] ( WNR) December 01, 2022 [id number] [phone] FR RAE SEPULVEDA PATIENT [employer]MANA [facility] (WNR) MEDICARE ADVANTAGE MCR (WNR) Aug 03, 2021 [id number] [phone] FR COCO ANK PATIENT [employer] MCR (WNR) MEDICARE ADVANTAGE MCR (WNR) Aug 03, 2017 [id number] [phone] FR RAE SEPULVEDA PATIENT [employer] MCR (WNR) MEDICARE ADVANTAGE MCR (WNR) Aug 03, 2017 [id number] [phone] FR RAE SEPULVEDA PATIENT Selected Encounter This section includes the information on record at [place] for the Encounter. Date/Time Encounter Type Encounter Description Reason Provider Source December 12, 2024 02:00 PM EDU&TRN PT SELF-MGMT NQHP 1 OCCUPATIONAL THERAPY ICD-10-CM M17.11 Unilateral primary osteoarthritis, right knee ADY GOMEZ [place] Encounter Template Text not used by [place] Assessments - Encounter Diagnoses This section includes the primary and secondary diagnoses documented for the Encounter. Date/Time Primary/Secondary Diagnosis Diagnosis Name Provider Source December 12, 2024 03:05 PM PRIMARY Unilateral primary osteoarthritis, right knee ADY GOMEZ [facility] Plan of Treatment: Future Appointments (+ 6 months) and Future Tests (+/- 45 days) The Plan of Treatment section includes future care activities for the patient from all [place] [facility] This section includes future appointments and future orders which are active, pending or scheduled. Future Appointments This section includes appointments that were scheduled to occur 6 months from the date of the Encounter, up to a maximum of 20 appointments. The data comes from all [place] treatment facilities. Appointment Date/Time Appointment Type Appointme nt Facility Name December 13, 2024 11:00 AM AMBULATORY - SURGERY [facility] December 14, 2024 10:00 AM AMBULATORY - SURGERY [facility] December 19, 2024 09:30 AM AMBULATORY - MEDICINE [facility] December 19, 2024 11:00 AM AMBULATORY - REHAB MEDICIN [facility] December 28, 2024 02:45 PM AMBULATORY - MEDICINE [facility] Jan 02, 2025 10:30 AM AMBULATORY - REHAB MEDICIN [facility] Jan 09, 2025 09:30 AM AMBULATORY - MEDICINE [facility] Jan 09, 2025 10:30 AM [facility]ONE . [facility] Jan 10, 2025 09:00 AM AMBULATORY - MEDICINE [facility] Jan 11, 2025 02:00 PM AMBULATORY - REHAB MEDICIN E [facility] Jan 16, 2025 09:30 AM [facility] Jan 18, 2025 09:30 AM AMBULATORY - REHAB MEDICIN E [facility] Jan 18, 2025 10:30 AM AMBULATORY - SURGERY . [facility] Jan 23, 2025 09:30 AM AMBULATORY - MEDICINE [facility] Jan 25, 2025 10:30 AM AMBULATORY - REHAB MEDICIN E [facility] Jan 30, 2025 09:00 AM AMBULATORY - REHAB MEDICIN E [facility] Jan 30, 2025 09:30 AM AMBULATORY - MEDICINE [facility] Jan 30, 2025 10:00 AM AMBULATORY - SURGERY . [facility] Feb 06, 2025 09:00 AM AMBULATORY - REHAB MEDICIN E [facility] Feb 06, 2025 09:30 AM AMBULATORY - MEDICINE [facility] Active, Pending, and Scheduled Orders This section includes a listing of several types of active, pending, and scheduled orders, including clinic medications orders, diagnostic test orders, procedure orders and consult orders; where the start date of the order is 45 days before the date of the Encounter or 45 days after the date of theEncounter. The data comes from all [place] treatment [facility]. Test Date/Time Test Type Test Details Facility Name Nov 18, 2024 06:00 AM Laboratory - Blood Bank Order TYPE & SCREEN - LAB BLOOD STAT WC [facility] Lab Results: +/- 30 days of the encounter This section includes the Chemistry and Hematology Lab Results on record with [place] for the patient. Radiology Reports and Pathology Reports are provided separately, in subsequent sections. Lab Results This section contains the Chemistry/Hematology Results that were resulted 30 days before or 30 daysafter the date of the Encounter. Date/Time Source Result Type Result - Unit Interpretation Reference Range Specimen Type Comment Jan 10, 2025 09:22 AM [facility] COMPREHENSIVE METABOLIC PANEL PLASMA Specimen Type: PLASMA Comment: No hemolysis noted. Ordering Provider: KHOI GRIFFIN Report Released Date/Time: Jan 11, 2024 01:34 PM Reporting Lab: [facility] [address] [place] [phone] Performing Lab: [address] [address] CREATININE 1.02 mg/dL 0.7-1.3 UREA NITROGEN 17.9 mg/dL 9.0-25.0 GLUCOSE 94 mg/dL 72-99 SODIUM 127 meq/L L 136-145 POTASSIUM 4.5 meq/L 3.5-5 CHLORIDE 91 meq/L L 98-107 CARBON DIOXIDE 28 meq/L 22-31 CALCIUM 9.7 mg/dL 8.4-10.4 PROTEIN 7.1 g/dL 6-8.6 ALBUMIN 4.1 g/dL 3.4-5 TOTAL BILIRUBIN 0.6 mg/dL 0.2-1.2 ALKALINE PHOSPHATASE 92 U/L 40-150 AST/SGOT 34 U/L 5-34 ALT/SGPT 26 U/L 8-40 EGFR (CKD-EPI 2020) 74.8 >60 Jan 10, 2025 09:22 AM [facility] LDH PLASMA Specimen Type: PLAS [place] Comment: No hemolysis noted. Ordering Provider: KHOI GRIFFIN Report Released Date/Time: Jan 11, 2024 01:34 PM Reporting Lab: [facility] [address] [place] [phone] Performing Lab: [address] [address] LDH 149 U/L 125-243 Jan 10, 2025 09:22 AM [facility] CBC BLOOD Specimen Type: BLOOD No comment entered. Ordering Provider: KHOI GRIFFIN Report Released Date/Time: Jan 11, 2024 01:34 PM Reporting Lab: [facility] [address] [place] [phone] Performing Lab: [address] [address] WBC 6.4 10*3/uL 3.6-11.2 RBC 4.39 10*6/uL 4.10-5.70 HGB 12.9 g/dL L 13.1-16.8 HCT 38.5 38.2-48.4 MCV 87.7 fL 80.0-100.0 MCH 29.4 pg 27.0-34.0 MCHC 33.5 g/dL 33.0-36.0 PLT 278 10*3/uL 150-400 MPV 8.5 fL 7.5-11.2 RDW 12.9 11.8-15.1 LYMPHOCYTES, AUTO % 30 MONOCYTES, AUTO % 9 NEUTROPHILS, AUTO % 58 EOSINOPHILS, AUTO % 3 BASOPHILS, AUTO % 1 LYMPHOCYTES, ABSOLUTE 1.90 10*3/uL 0.77- 4.50 MONOCYTES, ABSOLUTE 0.55 10*3/uL 0.19-0. 80 NEUTROPHILS, ABSOLUTE 3.71 10*3/uL 2.10- 8.00 EOSINOPHILS, ABSOLUTE 0.18 10*3/uL 0.00- 0.60 BASOPHILS, ABSOLUTE 0.05 10*3/uL 0.00-0. 20 Nov 19, 2024 02:24 PM [facility] BASIC METABOLIC PANEL PLASMA Specimen Type: PL ASMA Comment: No hemolysis noted. Ordering Provider: BESSY HOYT Report Released Date/Time: Nov 19, 2024 06:00 AM Reporting Lab: [facility] [address] [facility] [address] Performing Lab: [address] [address] CREATININE 1.16 mg/dL 0.7-1.3 UREA NITROGEN 21.3 mg/dL 9.0-25.0 GLUCOSE 101 mg/dL H 72-99 SODIUM 133 meq/L L 136-145 POTASSIUM 4.4 meq/L 3.5-5 CHLORIDE 100 meq/L 98-107 CARBON DIOXIDE 21 meq/L L 22-31 CALCIUM 9.4 mg/dL 8.4-10.4 EGFR (CKD-EPI 2020) 64.5 >60 Nov 19, 2024 11:54 AM [facility] CBC BLOOD Specimen Type: BLOOD Comment: SCAN OF SLIDE AGREES WITH AUTOMATED DIFF Ordering Provider: JEFFERSON VITAL Report Released Date/Time: Nov 19, 2024 11:44 AM Reporting Lab: [place] [address] [facility] [address] Performing Lab: [address] [address] WBC 11.2 10*3/uL 3.6-11.2 RBC 3.49 10*6/uL [...] 0.00-0. 20 Nov 19, 2024 11:54 AM [facility] BASIC METABOLIC PANEL PLASMA Specimen Type: PL ASMA Comment: No hemolysis noted. Ordering Provider: JEFFERSON VITAL Report Released Date/Time: Nov 19, 2024 11:44 AM Reporting Lab: [address] [address] Performing Lab: [address] [address] CREATININE 1.15 mg/dL 0.7-1.3 UREA NITROGEN 23.4 mg/dL 9.0-25.0 GLUCOSE 107 mg/dL H 72-99 SODIUM 132 meq/L L 136-145 POTASSIUM 4.1 meq/L 3.5-5 CHLORIDE 101 meq/L 98-107 CARBON DIOXIDE 23 meq/L 22-31 CALCIUM 9.2 mg/dL 8.4-10.4 EGFR (CKD-EPI 2020) 65.1 >60 Nov 18, 2024 06:00 PM [facility] MRSA SURVL NARES DNA NARES [...] Nov 18, 2024 03:43 PM Reporting Lab: [address] [address] Performing Lab: [address] [address] MRSA SURVL NARES DNA Negative Negative Nov 16, 2024 08:28 AM [facility] TSH W/ REFLEX FT4 (STL) PLASMA Specimen Type: PLASMA No comment entered. Ordering Provider: ALONDRA BRYANT Report Released Date/Time: Nov 01, 2024 04:02 PM Reporting Lab: [address] [address] Performing Lab: [address] [address] TSH 1.991 u[IU]/mL 0.47-5 Nov 16, 2024 08:28 AM [facility] BASIC METABOLIC PANEL PLASMA Specimen Type: PL ASMA Comment: No hemolysis noted. Ordering Provider: ALONDRA BRYANT Report Released Date/Time: Nov 01, 2024 04:02 PM Reporting Lab: [address] [address] Performing Lab: [address] [address] CREATININE 1.02 mg/dL 0.7-1.3 UREA NITROGEN 14.7 mg/dL 9.0-25.0 GLUCOSE 98 mg/dL 72-99 SODIUM 134 meq/L L 136-145 POTASSIUM 4.2 meq/L 3.5-5 CHLORIDE 100 meq/L 98-107 CARBON DIOXIDE 24 meq/L 22-31 CALCIUM 9.5 mg/dL 8.4-10.4 EGFR (CKD-EPI 2020) 75.2 >60 Advance Directives: All historical and current Section Date Range: From patient's date of to the date document was created. This section includes ALL of a patient's completed or amended [place] Advance and Rescinded Directives. The entries below indicate that a directive exists for the patient, but an actual copy is not included with this document. The data comes from all [place] facilities. Date Advance Directives Provider Source Jun 12, 2016 [address] [facility] December 24, 2011 ADVANCE DIRECTIVE DISCUSSION TOMMY VAZQUEZ [facility] Radiology Reports: +/- 30 days [...] the Encounter. The data comes from all [place] treatment facilities. Date/Time Radiology Report Provider Source Nov 18, 2024 02:12 PM KNEE,RIGHT,1 OR 2 VIEWS: JOYCELYN SEPULVEDA [id number] -1945 M Ex Date: NOV 18, 2024@14:12 Req Phys: YOVANI DUNN Pat Loc: 5C PCU [facility]/11-19-2024@07:05 Im Loc: [facility] RADIOLOGY SUITE Service: [address] [address] (Case [id number] COMPLETE) KNEE,RIGHT,1 OR 2 VIEWS (RAD Detailed) CPT:36506 Proc Modifiers : OR, RIGHT, AP & LAT Reason for Study: postop in OR R TKA Clinical History: Do films need to be ortho templated printed? No Report Status: Verified Date Reported: NOV 19, 2024 Date Verified: NOV 19, 2024 Bareback Rider E-Sig:/ES/Kuldip Brito MD Report: FINDINGS: Right knee replacement is noted and position appears satisfactory. Impression: Right knee replacement shows satisfactory position. Primary Interpreting Staff: Kuldip Brito MD, Radiologist ([place]inny) /KULDIP LLOYD [facility] Pathology Reports: +/- 30 days of [...] the Encounter. The data comes from all [place] treatment facilities. Date/Time Pathology Report Provider Source [...] x 3.0 cm for soft tissue fragments. Hat Brim Curler sections are submitted, following decalcification in RDO, in two cassettes A1-A2 MICROSCOPIC EXAM: ([place]) Microscopic examination of the sections submitted from right knee bone shows variable loss of articular cartilage with fibrillation and splitting. DIAGNOSIS: RIGHT KNEE BONE, RIGHT TOTAL KNEE ARTHROPLASTY: DEGENERATIVE CHANGES /brianda/ STUART RIVERS Pathologist Signed Nov 22, 2024@12:56 Performing Laboratory: Surgical Pathology Report Performed By: [facility] CLIA# [id number] [address] [place] [address] $FTR - - - - - - - - - - - - - - - - - - - - - - - - - - - - - - - - - - - - - - - - (End of report) STUART RIVERS MD [facility] Date Nov 22, 2024 - - - - - - - - - - - - - - - - - - - - - - - - - - - - - - - - - - - - - - - - JOYCELYN SEPULVEDA A STANDARD FORM 515 ID:[id number] SEX:M :1945 AGE: 78 LOC:APFEE PCP: Alondra Bryant /brianda/ STUART RIVERS Pathologist Signed: 11/22/2024 12:56 STUART RIVERS [facility] Encounter Notes: All associated encounter notes This section contains the clinical notes associated to the Encounter. Date/Time Encounter Note(s) Provider Source December 12, 2024 02:00 PM CONSULT: LOCAL TITLE: OT VVC HOME EVAL CONSULT ST STANDARD TITLE: CONSULT DATE OF NOTE: DECEMBER 12, 2024@14:00 ENTRY DATE: DECEMBER 12, 2024@15:02:13 AUTHOR: ADY GOMEZ EXP COSIGNER: URGENCY: STATUS: COMPLETED INITIAL VVC OT HOME EVALUATION NOTE Diagnosis:Unilateral Primary Osteoarthritis, right Knee(ICD-10-CM M17.11) Requesting Provider:ALONDRA BRYANT Reason for request:Home Access (ramps & handrails), Bathroom Modifications (grab bars, roll in shower, HISA silas, shower chairs, raised toilet seats, etc.), Adaptive Self-Care Equipment (for bathing, dressing, showering, toileting, etc.) Precautions: Fall risk Date of Evaluation:12/12/24 Visit #:1 Total Treatment Time: 14:00-14:40 OT BILL(mod 26345):10 minutes Self care 29731: minutes Pt ed 30 mins individual 82849:30 minutes Appointment was conducted via telehealth/clinical video teleconferencing (CVT/VVC/VCM) to [place] Video Connect/Virtual skilled nursing case manager. gave verbal consent prior to the start of the appointment. [place] has been informed of and verbally consented to the followin. The nature of telehealth and its benefits and risks 2. Confidentiality and its limits 3. The emergency plan Patient's address during the session: [address] [place] [phone] Patients telephone number (cellular and/or landline): Patient's Email:[email or web address] Names of other individuals present in the home/outside social contact worker: Spouse, Miguelina Contact information for above (if applicable): same as above E911: Providers location and contact information for this appointment (verified with ): yes PROVIDER LOCATION NAME: BLAYNE Velasquez PROVIDER PHONE: [phone] ext [phone] IMPACT OF TECHNOLOGY: Video and audio quality of the connection during this video-telehealth session were good. There were no identifiable technology barriers to the delivery of care in this session. No patient sessions are allowed to be recorded at any time without express consent of the patient. Any recordings [place] signed [place] [id number] found here [email or web address]://vaww.va.gov/vaforms/v [email or web address] Lock Virtual Conference Room Past Medical History: Includes stroke w/L side weakness, HTN, anxiety, depression, R knee replacement SUBJECTIVE: Vet and spouse report they live in an accessible home built for an elderly couple. They state they only need grab bars installed Vet's personal goal: obtain HISA silas for grab bars Family/Caregiver goal: Increase safety in home Pain: Sitting at rest: 4/10 R knee (Pain Scale: 0=no pain, 10=unbearable pain) SENSORY AND COMMUNICATION: Sensation: none reported [x]Dressed appropriately. -Communication: [x]Normal []Aphasia []non-verbal []Able to communicate needs -Vision: []Normal []Impaired []Blind [x]Wears glasses -Hearing: []Normal [x] Impaired [] Wears hadbvmc-ovn-oqj appt tomorrow MOBILITY: (I) on level surfaces []without device [x]cane [x]wheeled walker [x] rollator []w/c []non-ambulatory -Transfers:[]I [x]MOD I [x]SBA []NEEDS ASSISTANCE comment: occasional assist based on height of chair -Home Mobility: []I [x]MOD I []SBA []NEEDS ASSISTANCE -Community Mobility: []I [x]MOD I [x]SBA []NEEDS ASSISTANCE -Stairs: NA []I []MOD I []SBA []NEEDS ASSISTANCE -Footwear at time of visit: []none [x]non-skid Educated in need to wear appropriate non-skid footwear SKIN INTEGRITY/POSITIONING:[]inta ct []sores [x]bruising- L arm *Instructed in importance of proper positioning and need for frequent repositioning FALL RISK ASSESSMENTS: -FALL HISTORY:[] none #3 in last 3 months # last 6 months comments: bedroom, kitchen, dining room since prior to knee surgery [place] FALL RISK ASSESSMENT: -History of falling (within 3 months): 25 = Yes 0 = No -Secondary diagnosis contributing to fallin = Yes 0= No -Ambulatory aid used during gait: 30= Furniture 15 = crutches/cane/walker 0 = None/bed rest/wheelchair -IV therapy: 20 = Yes 0 = No -Gait/transfer characteristics: 20 = impaired gait/transfer 10 = weak 0 = normal/bed rest/immobile -Mental status: 15 = forgets limitations on walking/transferring 0 = Oriented to own ability Total Score: ____55 0-24 = Low Fall Risk, 25-44 = Moderate Fall Risk, 45 and higher = High Fall risk FUNCTIONAL ABILITY: PER SELF-REPORT -Eating: []I [x]MOD I []SBA []NEEDS ASSISTANCE -Grooming:[]I [x]MOD I []SBA []NEEDS ASSISTANCE -Bathing: []I []MOD I []SBA [x]NEEDS ASSISTANCE -UE Dressing: []I []MOD I []SBA [x]NEEDS ASSISTANCE -LE Dressing:[]I []MOD I []SBA [x]NEEDS ASSISTANCE -Toileting: []I [x]MOD I []SBA []NEEDS ASSISTANCE Comments regarding ADL function: -Transfer - Bed, Chair, W/C: []I [x]MOD I []SBA []NEEDS ASSISTANCE -Transfer - Toilet: []I [x]MOD I []SBA []NEEDS ASSISTANCE -Transfer - Tub, Shower: []I []MOD I [x]SBA []NEEDS ASSISTANCE Comments regarding transfers for ADL: spouse stands by to provide shower transfer assist as needed IADLS/HOME MGMT SKILLS: -Meal Prep: [](I) []dependent [x]provided by: -Laundry: [](I) [x] Provided by: -Transportation: [x](I) []dependent []provided by: -Medication Mgmt: [x](I)- shares with spouse []dependent [] provided by: [x]Description for med mgmt: pillbox Addl. comments: [x]Cognition: A&Ox4. Pleasant and cooperative. Followed directions well. []Impaired safety/judgement [x]Memory intact OBJECTIVE: Pt seen this date for home eval to assess home safety and equipment needs. HOME ENVIRONMENT: [x] own [] rental Identification of who is present during eval: [x] spouse [] child [] Caregiver [] other: -Lives with: [] alone [x] spouse [] child: son/daughter [] friend [] other -Type of Dwelling: [x] single level without basement [] 2-story with/without basement [] split level [] modular home with basement [] trailer [] apt [] senior citizen apt [] condo -Parking: Vehicle to access is located: [] Street [] Parking Lot [] Driveway [x] Garage [x] Other- under breezeway -Walkway to door: EXTERIOR OF HOME: pathway is: [x]level []uneven []obscured -Entry: Main door being used to enter/exit home: []front []side [x]garage []backdoor (approximate how many feet:_8__) Exterior Steps to doorway #__0__ Rails[]yes []no Condition of stairs: [x] good condition [] repair needed [] rail loose Ramp available: []Y [x]N []NA Elevator available: []Y [x]N []NA Can pt safely evacuate house in case of emergency: [x]yes []no INTERIOR STEPS OF HOME: Overall #__NA___ of Interior Steps that will be used by the : -To 2nd floor/Bedroom/Bathroom: # Rails []yes []no -To Basement(if used by pt.)# Rails []yes []no BASEMENT USED FOR: -To other level: # Rails []yes []no Marta: []carpeting [x]tile-bath/kitchen []laminate [x]hardwood []area rugs Condition of home: [x] clean/neat [] cluttered [] dirty [] in need of repair [] uneven Traffic areas free from electrical/telephone cords/oxygen tubing: [x]yes [] no Exits and passageways kept clear: [x]yes []no Adequate lighting: [x]yes []no Animals in the home: [x]yes []no details: dog BATHROOMS: -Bathroom #1 Location used by patient: [x]main []2nd floor []basement []hallway [x] master Bathing []tub []tub/shower combo []curtain []glass doors [x]walk/roll-in shower with [x]curtain []sliding doors []Standing tub/shower [x]shower chair []tub bench [x]HH shower []grab bars []tub rail []Nonskid floor or mat Toileting []Regular height [x]Handicapped height []toilet rails []raised toilet seat []BSC []regular round seat [x]oval/elongated seat Nightlight: [x]yes []no Style of sink in bathroom used: [x]Vanity []Pedestal Support use of ambulatory device: [x]yes []no Comments: -Bathroom #2 Location used by patient: [x]main []2nd floor []basement [x]hallway [] master Bathing []tub [x]tub/shower combo []curtain [x]glass doors []walk/roll-in shower with []curtain []sliding doors []Standing tub/shower []shower chair []tub bench []HH shower []grab bars []tub rail []Nonskid floor or mat Toileting []Regular height [x]Handicapped height []toilet rails []raised toilet seat []BSC []regular round seat [x]oval/elongated seat Nightlight: [x]yes []no Style of sink in bathroom used: []Vanity [x]Pedestal Support use of ambulatory device: [x]yes []no Comments: BEDROOM: [x]main []2nd floor Condition: []cluttered [x] clean Marta:[]carpet [x]hardwood []laminate []ceramic []vinyl Rug: []none []area []throw Bed: [x]Suresh [][place] [][facility] Nightlight: [x]yes []no Clothing storage: [x]closet-hanging []floor items [x]Divide style Comments: HOME SAFETY: -Access to telephone: yes -Smoke detectors: yes -Adequate refrigeration: yes -Electrical safety issues: no -Running water: yes -Heat: yes -Air conditioning/ventilation: yes -Functional commode: yes -Pt or other family on O2: no ADDITIONAL RISK FACTORS: physical impairments, cognitive impairment, sensory deficits, orthostatic hypotension, incontinence, visual impairment, hearing impairment, environment hazards, pain affecting function, poly-pharmacy (9+ meds), low vitamin D level, weight loss, choosing not to use ambulatory assistive device, multiple medical problems FALL RISK PRECAUTIONS/INTERVENTIONS INCLUDE: encourage non-slip footwear, night light and/or bathroom light left on, environmental hazards reduced as much as possible, individualize equipment to patient needs, exercise program, hip protectors, bed/chair/door alarms, encourage to wear medical alert device or keep phone within reach, orthostatic precautions, patient to use assistive device/patient to be accompanied by family/caregiver when transferring/ambulating, education on home safety/fall prevention techniques, bathroom safety EQUIPMENT CURRENTLY IN HOME: [] ramp [] w/c []manual []power [] transport chair [x] walker []standard [x]2 wheeled [x]seated [x] cane [x]straight []SBQC []LBQC [] scooter [] teresa/ceiling lift [] hospital bed [] overbed trapeze [] bedside commode [] toilet rails [x] raised toilet seat [x] shower chair [] grab bar(s) and identify location: [] transfer tub bench [x] HH shower [] tub-mounted grab bar [x] instructional writer [] LH shoehorn [] dressing stick [] sock aid [] long sponge [] bed cane/rail [x] medical alert- not set up [] other EQUIPMENT ORDERED ___Tub Bench ___Shower Chair ___Grab Bars 16 long ___Tub Rail ___Safety Strips ___Hand Held Shower ___Diverter Valve ___Versa Frame ___Raised Toilet Seat ___Commode ___Sponge ___Reacher ___Sock Aid ___Button Hook ___Shoe Horn ___Dressing Stick ___Weighted Utensils ___Large Sonar Watchstander Utensils ___Lipped Plate ___Dycem ___Rocker Knife ___Lap Tray ___Arm Trough ___Walker Basket ___W/C Gloves ___W/C Cup Wiseman ___Thermal Mug ___Hand [place] ___[id number]-Gyb-Fjm ___Theraputty ___Medical Alert ___Bed Cane ___Stair [place] -Room on main level for laundry hook-ups?:___ -Who Does laundry in the home?:___ -5x STS time for screen of trfr safety:___ ___Other: _x_HISA silas: Recommend installation of grab bars in walkk-in shower of home Rationale: with 100% service connection will benefit from grab bars in walk-in shower to increase safety and independence with bathing and bathing transfers Patient education was ready to learn and demonstrated an understanding of equipment issued. [place] given 1:1 instruction in equipment issued and/or home exercise program as noted above. PT/FAMILY EDUCATION AND RECOMMENDATIONS: []Home safety and fall prevention techniques [x]Bathroom safety [x]Use of equipment []Correct use of cane/walker []Advised to decrease clutter to reduce the risk of tripping or slipping []Recommend removing or securing rugs [x]Energy conservation/work simplification techniques []Pressure reduction/Proper positioning ASSESSMENT: Pt is 78 year old male with dx of post-CVA, referred for HSE due to recent h/o falls and need for grab bars in shower. Vet is able to complete ADLs/functional mobility with assist from spouse as needed. Pt has family that assists as needed. Pt is a fall risk. Pt/family was educated in DME/AE available and ordered appropriate equipment as indicated. Pt/family was also educated in home safety and fall prevention techniques. Pt/family verbalized/demonstrated understanding of equipment use and education. All needs met at this time, D/C skilled OT. [place] with challenges transferring into and out of the shower due to lower extremity weakness and instability, will benefit from the following equipment which the OT provided training and education on and will order: HISA for grab bar installation Barriers to goals: None Occupational Profile and History [x] Brief (low) [] Expanded (moderate) [] Extensive (high) Performance deficits identified: [x] ADLs [] IADLs [x] Functional mobility [] Range of motion [] Muscle Strength [] Functional Endurance [] Functional Balance [] Fine motor coordination [x] Adaptive equipment needs [] Cognition [] Vision [] Coping skills [] Interpersonal interaction [] Impulse control [] Other (please specify: ) Quiles: 1-3 performance deficits = Low complexity 3-5 performance deficits = moderate complexity 5 or more performance deficits = high complexity Level of Clinical Decision Making [] problem-focused assessment [x] detailed assessment [] comprehensive assessment --Therefore, from the findings above in Veterans Occupational Profile/History, Performance Deficits and level of clinical decision making, the OT Evaluation level of complexity of this patient was: [] Low [x] Moderate [] High PLAN: D/C with no follow up after one visit secondary to achieving goal this visit. or caregiver will understand safe use of equipment listed above. [place] will have verbal and written instructions on use of equipment. to be ordered equipment and sent to his/her home. No further follow up at this time. *Education* Learning Assessment: Patient/Caregiver appeared ready for instruction (good eye contact, appropriate questions, active participation, etc.) Person(s) who received education: Patient Spouse/Significant Other spouse Education Topic/Teaching Needs: Activities of Daily Living (ADLs) HISA silas process Methods used included: One-on-one: discussion Teaching outcomes: Good level of understanding /brianda/ ADY GOMEZ Occupational Therapist Signed: 12/12/2024 15:05 ADY GOMEZ [facility]
--- OUTSIDE RECORDS SUMMARY | 2024-12-13 06:00 | XMS_ITS ---
Author Name [facility] [facility] Address [address] [place] [address] Care Team Providers Care Sander Hand Name Role Phone KOLE GARY Primary Care [...] Name Patient's Relationship to Policy Wiseman AUNG [facility] (WNR) MEDICARE [facility] (WNR) Aug 03, 2017 [facility] (WN) [id number] [phone] FR RAE SEPULVEDA PATIENT [employer] [facility] (WNR) MEDICARE ADVANTAGE [facility] (WNR) December 01, 2022 [id number] [phone] FR RAE SEPULVEDA PATIENT [employer] [facility] (WNR) MEDICARE ADVANTAGE [facility] (WNR) December 01, 2022 [id number] [phone] FR COCO ANK PATIENT [employer] [facility] (WNR) MEDICARE ADVANTAGE [facility] ( WNR) December 01, 2022 [id number] [phone] FR RAE SEPULVEDA PATIENT [employer] [facility] (WNR) MEDICARE ADVANTAGE [facility] (WNR) Aug 03, 2021 [id number] [phone] FR RAE SEPULVEDA PATIENT [employer] [facility] (WNR) MEDICARE ADVANTAGE [facility] (WNR) Aug 03, 2017 [id number] [phone] FR RAE SEPULVEDA PATIENT [employer] [facility] (WNR) MEDICARE ADVANTAGE [facility] (WNR) Aug 03, 2017 [id number] [phone] FR RAE SEPULVEDA PATIENT Selected Encounter This section includes the information on record at [place] for the Encounter. Date/Time Encounter Type Encounter Description Reason Provider Source December 13, 2024 11:00 AM HEARING AID SUP/ACCESS/DEV AUDIOLOGY ICD-10-CM Z46.1 Encounter for fitting and adjustment of hearing aid KEIRA ARRIOLA IN [facility] Encounter Template Text not used by [place] Assessments - Encounter Diagnoses This section includes the primary and secondary diagnoses documented for the Encounter. Date/Time Primary/Secondary Diagnosis Diagnosis Name Provider Source December 13, 2024 11:00 AM PRIMARY Encounter for fitting and adjustment of hearing aid KEIRA ARRIOLA IN [facility] December 13, 2024 11:00 AM SECONDARY Sensorineural hearing loss, bilateral KEIRA ARRIOLA IN [facility] December 13, 2024 11:00 AM SECONDARY Tinnitus, bilateral KEIRA ARRIOLA IN [facility] Plan of Treatment: Future Appointments (+ 6 months) and Future Tests (+/- 45 days) The Plan of Treatment section includes future care activities for the patient from all [place] treatmentfacilities. This section includes future appointments and future orders which are active, pending or scheduled. Future Appointments This section includes appointments that were scheduled to occur 6 months from the date of the Encounter, up to a maximum of 20 appointments. The data comes from all [place] treatment facilities. Appointment Date/Time Appointment Type Appointme nt Facility Name December 14, 2024 10:00 AM AMBULATORY - SURGERY [facility] December 19, 2024 09:30 AM AMBULATORY - MEDICINE [facility] December 19, 2024 11:00 AM AMBULATORY - REHAB MEDICIN E [facility] December 28, 2024 02:45 PM AMBULATORY - MEDICINE [facility] Jan 02, 2025 10:30 AM AMBULATORY - REHAB MEDICIN E [facility] Jan 09, 2025 09:30 AM AMBULATORY - MEDICINE [facility] Jan 09, 2025 10:30 AM AMBULATORY - NONE [facility] Jan 10, 2025 09:00 AM AMBULATORY - MEDICINE [facility] Jan 11, 2025 02:00 PM AMBULATORY - REHAB MEDICIN E [facility] Jan 16, 2025 09:30 AM AMBULATORY - MEDICINE [facility] Jan 18, 2025 09:30 AM AMBULATORY - REHAB MEDICIN E [facility] Jan 18, 2025 10:30 AM AMBULATORY - SURGERY . [facility] Jan 23, 2025 09:30 AM AMBULATORY - MEDICINE [facility] Jan 25, 2025 10:30 AM AMBULATORY - REHAB MEDICIN E [facility] Jan 30, 2025 09:00 AM AMBULATORY - REHAB MEDICIN E [facility] Jan 30, 2025 09:30 AM AMBULATORY - MEDICINE [facility] Jan 30, 2025 10:00 AM AMBULATORY - SURGERY [facility] Feb 06, 2025 09:00 AM AMBULATORY - REHAB MEDICIN E [facility] Feb 06, 2025 09:30 AM AMBULATORY - MEDICINE [facility] Feb 13, 2025 10:30 AM AMBULATORY - MEDICINE [facility] Active, Pending, and Scheduled Orders This section includes a listing of several types of active, pending, and scheduled orders, including clinic medications orders, diagnostic test orders, procedure orders and consult orders; where the start date of the order is 45 days before the date of the Encounter or 45 days after the date of theEncounter. The data comes from all [place] treatment facilities. Test Date/Time Test Type Test Details Facility Name Nov 18, 2024 06:00 AM Laboratory - Blood Bank Order TYPE & SCREEN - LAB BLOOD STAT WC [facility] Lab Results: +/- 30 days of the encounter This section includes the Chemistry and Hematology Lab Results on record with [place] for the patient. Radiology Reports and Pathology Reports are provided separately, in subsequent sections. Lab Results This section contains the Chemistry/Hematology Results that were resulted 30 days before or 30 daysafter the date of the Encounter. Date/Time Source Result Type Result - Unit Interpretation Reference Range Specimen Type Comment Jan 10, 2025 09:22 AM [facility] LDH PLASMA Specimen Type: PLASMA Comment: No hemolysis noted. Ordering Provider: KHOI GRIFFIN Report Released Date/Time: Jan 11, 2024 01:34 PM Reporting Lab: [place] [address] [facility] [address] Performing Lab: [address] [address] LDH 149 U/L 125-243 Jan 10, 2025 09:22 AM [facility] COMPREHENSIVE METABOLIC PANEL PLASMA Specimen Type: PLASMA Comment: No hemolysis noted. Ordering Provider: KHOI GRIFFIN Report Released Date/Time: Jan 11, 2024 01:34 PM Reporting Lab: [place] [address] [facility] [address] Performing Lab: [address] [address] CREATININE 1.02 mg/dL 0.7-1.3 UREA NITROGEN 17.9 [...] 74.8 >60 Jan 10, 2025 09:22 AM [facility] CBC BLOOD Specimen Type: BLOOD No comment entered. Ordering Provider: KHOI GRIFFIN Report Released Date/Time: Jan 11, 2024 01:34 PM Reporting Lab: [facility] [address] [facility] [facility] [address] Performing Lab: [address] [address] WBC 6.4 10*3/uL 3.6-11.2 RBC 4.39 10*6/uL [...] 0.00-0. 20 Nov 19, 2024 02:24 PM [facility] BASIC METABOLIC PANEL PLASMA Specimen Type: PL ASMA Comment: No hemolysis noted. Ordering Provider: BESSY HOYT Report Released Date/Time: Nov 19, 2024 06:00 AM Reporting Lab: [address] [address] Performing Lab: [address] [address] CREATININE 1.16 mg/dL 0.7-1.3 UREA NITROGEN 21.3 mg/dL 9.0-25.0 GLUCOSE 101 mg/dL H 72-99 SODIUM 133 meq/L L 136-145 POTASSIUM 4.4 meq/L 3.5-5 CHLORIDE 100 meq/L 98-107 CARBON DIOXIDE 21 meq/L L 22-31 CALCIUM 9.4 mg/dL 8.4-10.4 EGFR (CKD-EPI 2020) 64.5 >60 Nov 19, 2024 11:54 AM [facility] BASIC METABOLIC PANEL PLASMA Specimen Type: PL ASMA Comment: No hemolysis noted. Ordering Provider: JEFFERSON VITAL Report Released Date/Time: Nov 19, 2024 11:44 AM Reporting Lab: [address] [address] Performing Lab: [address] [address] CREATININE 1.15 mg/dL 0.7-1.3 UREA NITROGEN 23.4 mg/dL 9.0-25.0 GLUCOSE 107 mg/dL H 72-99 SODIUM 132 meq/L L 136-145 POTASSIUM 4.1 meq/L 3.5-5 CHLORIDE 101 meq/L 98-107 CARBON DIOXIDE 23 meq/L 22-31 CALCIUM 9.2 mg/dL 8.4-10.4 EGFR (CKD-EPI 2020) 65.1 >60 Nov 19, 2024 11:54 AM [facility] CBC BLOOD Specimen Type: BLOOD Comment: SCAN OF SLIDE AGREES WITH AUTOMATED DIFF Ordering Provider: JEFFERSON VITAL Report Released Date/Time: Nov 19, 2024 11:44 AM Reporting Lab: [address] [address] Performing Lab: [address] [address] WBC 11.2 10*3/uL 3.6-11.2 RBC 3.49 10*6/uL [...] 0.00-0. 20 Nov 18, 2024 06:00 PM [facility] MRSA SURVL NARES DNA NARES Specimen [...] Nov 18, 2024 03:43 PM Reporting Lab: [address] [address] Performing Lab: [address] [address] MRSA SURVL NARES DNA Negative Negative Nov 16, 2024 08:28 AM [facility] TSH W/ REFLEX FT4 (STL) PLASMA Specimen Type: PLASMA No comment entered. Ordering Provider: ALONDRA BRYANT Report Released Date/Time: Nov 01, 2024 04:02 PM Reporting Lab: [address] [address] Performing Lab: [address] [address] TSH 1.991 u[IU]/mL 0.47-5 Nov 16, 2024 08:28 AM [facility] BASIC METABOLIC PANEL PLASMA Specimen Type: PL ASMA Comment: No hemolysis noted. Ordering Provider: ALONDRA BRYANT Report Released Date/Time: Nov 01, 2024 04:02 PM Reporting Lab: [facility] [address] [facility] [address] Performing Lab: [facility] [address] [facility] [address] CREATININE 1.02 mg/dL 0.7-1.3 UREA NITROGEN 14.7 mg/dL 9.0-25.0 GLUCOSE 98 mg/dL 72-99 SODIUM 134 meq/L L 136-145 POTASSIUM 4.2 meq/L 3.5-5 CHLORIDE 100 meq/L 98-107 CARBON DIOXIDE 24 meq/L 22-31 CALCIUM 9.5 mg/dL 8.4-10.4 EGFR (CKD-EPI 2020) 75.2 >60 Social History: Smoking Status (Most current) and [...] place. Date/Time Current Smoking Status Comment Janet lopezy Aug 09, 2024 09:30 AM VA-TOBACCO USE FOR SARAI [employer] [facility] Tobacco Use History This section includes a history of the smoking, or tobacco-related health factors, that were collected on or before the date of the Encounter. The data comes from the [place] facility where the Encounter took place. Date/Time Smoking Status/Tobacco Use Comment F catarino Aug 09, 2024 09:30 AM VA-TOBACCO USE FOR Vysr [facility] Advance Directives: All historical and current [...] 12, [address] [facility] December 24, 2011 ADVANCE DIRECTIVE DISCUSSION TOMMY VAZQUEZ [facility] Radiology Reports: +/- 30 days of [...] the Encounter. The data comes from all [facility]. Date/Time Radiology Report Provider Source Nov 18, 2024 02:12 PM KNEE,RIGHT,1 OR 2 VIEWS: JOYCELYN SEPULVEDA Panchito [id number] -1945 M Exm Date: NOV 18, 2024@14:12 Req Phys: SHAUNYOVANI Janny Pat Loc: 5C PCU -[facility]/11-19-2024@07:05 Img Loc: [facility]MAIN RADIOLOGY SUITE Service: [address] [address] (Case [id number] COMPLETE) KNEE,RIGHT,1 OR 2 VIEWS (RAD Detailed) CPT:92908 Proc Modifiers : OR, RIGHT, AP & LAT Reason for Study: postop in OR R TKA Clinical History: Do films need to be ortho templated printed? No Report Status: Verified Date Reported: NOV 19, 2024 Date Verified: NOV 19, 2024 [place]ort [place]orker E-Sig:/ES/Kuldip Decker MD Report: FINDINGS: Right knee replacement is noted and position appears satisfactory. Impression: Right knee replacement shows satisfactory position. Primary Interpreting Staff: Kuldip Decker MD, Radiologist ([place] Forker) /QMB KULDIP DECKER [facility] Pathology Reports: +/- 30 [...] the Encounter. The data comes from all [facility]. Date/Time Pathology Report Provider Source Nov 22, [...] x 3.0 cm for soft tissue fragments. Rosin Barrel Filler sections are submitted, following decalcification in RDO, in two cassettes A1-A2 MICROSCOPIC EXAM: ([place]) Microscopic examination of the sections submitted from right knee bone shows variable loss of articular cartilage with fibrillation and splitting. DIAGNOSIS: RIGHT KNEE BONE, RIGHT TOTAL KNEE ARTHROPLASTY: DEGENERATIVE CHANGES /es/ STUART RIVERS Pathologist Signed Nov 22, 2024@12:56 Performing Laboratory: Surgical Pathology Report Performed By: [facility], [facility] [address] [facility] CLIA# [id number] [address] [place] [address] [place] [address] $FTR - - - - - - - - - - - - - - - - - - - - - - - - - - - - - - - - - - - - - - - - (End of report) STUART RIVERS MD [facility] Date Nov 22, 2024 - - - - - - - - - - - - - - - - - - - - - - - - - - - - - - - - - - - - - - - - JOYCELYN SEPULVEDA A STANDARD FORM 515 ID:[id number] SEX:M :1945 AGE: 78 LOC:AP[facility]EE PCP: Alondra Bryant /brianda/ STUART RIVERS Pathologist Signed: 11/22/2024 12:56 STUART RIVERS [facility] Encounter Notes: All associated encounter notes This section contains the clinical notes associated to the Encounter. Date/Time Encounter Note(s) Provider Source December 13, 2024 10:51 AM AUDIOLOGY CORONER TRANSPORT TECHNICIAN NOTE: LOCAL TITLE: HEARING AIDS STL STANDARD TITLE: AUDIOLOGY CORONER TRANSPORT TECHNICIAN NOTE DATE OF NOTE: DECEMBER 13, 2024@10:51 ENTRY DATE: DECEMBER 13, 2024@10:51:38 AUTHOR: SUNITA ARRIOLA COSIGNER: URGENCY: STATUS: COMPLETED SUBJECT: Audio HEARING AIDS STL Has ADDENDA HAF: was seen for fitting of new hearing aids. Otoscopy reveals clear ear canals. Aid(s) were programmed to First Fit and adjusted to NAL-NL2 prescriptive target. [x] provider initiated visit Family members were: [x] Present: , Benny. [x] Conformity eval completed [x] Rechargeable batteries [x] New user ++++++++++++++++++++++++++ ++++++++++++++++++++++++++ + Today, [place] was fit with: 12/13/24 AUDIO PURE C&G T 7IX KAREEM-R R [id number] 11/30/27 04/29/25 [facility] (CD) 12/13/24 AUDIO PURE C&G T 7IX KAREEM-R L [id number] 11/30/27 04/29/25 [facility] () [3M receivers, acrylic canal lock earmolds, VC enabled (rocker switch), manual power (long press & hold), auto, paired to iPhone] Length 2 receivers changed to length 3 for better fit; ordered replacement for clinic stock: 12/13/24 [id number] SERV REQ - REP CJR OPEN [id number] PURE C&G T 7IX KRAEEM-R 12/13/24 [id number] SERV REQ - REP CJR OPEN [id number] PURE C&G T 7IX KAREEM-R Firmware updated. [place] provided with quality improvement engineer Bluetooth & application info; [place] to download and pair on his own as desired. The following standardized education was provided and the was able to demonstrate understanding after the education: o Introduction to aids (red/blue, right/left). o Parts of the aids. o Travel Ticketing Reviewer. o Insertion/removal of aids. o Volume control. o Realistic expectations of aids. o Cleaning/maintenance of aids. Wax filters. [place]. [place] was able to successfully demonstrate ability to change wax filter in clinic. o Review of the items: soft case, hard case. o Review of the paperwork: battery reorder form, instruction manual, IOI survey, clinician name/number, L&D form. o Review trial period and warranty. o Bluetooth handout. o Verified successful Bluetooth connection with call and steaming in clinic; provided Bluetooth hotline number. Real-ear workday consultant differences measures; curves stored in TIFFANY. Real-ear measures are within acceptable limits for all available targets; curves stored in TIFFANY. Counseled on proper use and care of aids. [place] practiced insertion/removal of aids. Verbalized understanding of hearing aid care and maintenance. Following conformity measures, the following adjustments made: o Own voice processing run. o Adjusted gain to ensure no feedback even when cupping ears. o Acclimatization reduced to new; auto acclimatization set to increase to experienced over 2 months which was made aware of. Supplies ordered. ++++++++++++++++++++++++++ ++++++++++++++++++++++++++ + RECOMMENDATIONS: 1. Full-time hearing aid use to facilitate adjustment to amplification. 2. Contact Audiology Clinic [phone] or [phone] for repairs and/or adjustments as needed. 3. to complete IOI-FRANKLIN and mail back after 30 days; [place] provided with pre-paid envelope to return. 4. When right and left receivers arrive, (3M), please place in clinic stock. Time for appt: 60 minutes /brianda/ SUNITA ARRIOLA Staff Lehr TenderCHENG, CCC-A Signed: 12/13/2024 11:56 12/19/2024 ADDENDUM STATUS: COMPLETED Certified RT & LT system configuration specialist; placed in clinic stock: 12/13/24 [id number] SERV REQ - REP CJR CLOSED [id number] PURE C&G T 7IX KAREEM-R 12/13/24 [id number] SERV REQ - REP CJR CLOSED [id number] PURE C&G T 7IX KAREEM-R /brianda/ SUNITA ARRIOLA Staff Lehr TenderCHENG, CCC-A Signed: 12/19/2024 14:15 SUNITA ARRIOLA [facility]
--- OUTSIDE RECORDS SUMMARY | 2024-12-14 05:00 | XMS_ITS | Encounter Summary ---
Author Name [facility] [place] [facility] [place] Address [address] [place] [address] Care Team Providers Care House Officer Name Role Phone KOLE GARY Primary Care [...] Patient's Relationship to Policy Wiseman AUNG FREITAS [facility] (WNR) MEDICARE ADVANTAGE [facility] (WNR) Aug 03, 2017 [facility] (WN) [id number] [phone] FR RAE SEPULVEDA PATIENT [employer] [facility] (WNR) MEDICARE ADVANTAGE [facility] (WNR) December 01, 2022 [id number] [phone] FR RAE SEPULVEDA PATIENT [facility] [facility] (WNR) MEDICARE ADVANTAGE MCR (WNR) December 01, 2022 [id number] [phone] FR COCO ANK PATIENT [employer] [facility] (WNR) MEDICARE ADVANTAGE [facility] ( WNR) December 01, 2022 [id number] [phone] FR RAE SEPULVEDA PATIENT [facility] [facility] (WNR) MEDICARE ADVANTAGE [facility] (WNR) Aug 03, 2021 [id number] [phone] FR RAE SEPULVEDA PATIENT [facility] [facility] (WNR) MEDICARE ADVANTAGE MCR (WNR) Aug 03, 2017 [id number] [phone] FR RAE SEPULVEDA PATIENT [facility] (WNR) MEDICARE ADVANTAGE MCR (WNR) Aug 03, 2017 [id number] [phone] FR RAE SEPULVEDA PATIENT Selected Encounter This section includes the information on record at CT for the Encounter. Date/Time Encounter Type Encounter Description Reason Provider Source December 14, 2024 10:00 AM POSTOP FOLLOW-UP VISIT ORTHO/JOINT SURG ICD-10-CM Z47.1 Aftercare following joint replacement surgery PERFECTO BOLES [place] Encounter Template Text not used by CT Assessments - Encounter Diagnoses This section includes the primary and secondary diagnoses documented for the Encounter. Date/Time Primary/Secondary Diagnosis Diagnosis Name Provider Source December 14, 2024 05:03 PM PRIMARY Aftercare following joint replacement surgery PERFECTO BOLES [facility] December 14, 2024 05:03 PM SECONDARY Presence of right artificial knee joint PERFECTO BOLES [facility] Plan of Treatment: Future Appointments (+ 6 months) and Future Tests (+/- 45 days) The Plan of Treatment section includes future care activities for the patient [facility] This section includes future appointments and future orders which are active, pending or scheduled. Future Appointments This section includes appointments that were scheduled to occur 6 months from the date of the Encounter, up to a maximum of 20 appointments. The data comes from all CT treatment facilities. Appointment Date/Time Appointment Type Appointme nt Facility Name December 19, 2024 09:30 AM AMBULATORY - MEDICINE [facility] December 19, 2024 11:00 AM AMBULATORY - REHAB MEDICIN E [facility] December 28, 2024 02:45 PM AMBULATORY - MEDICINE [facility] Jan 02, 2025 10:30 AM AMBULATORY - REHAB MEDICIN E [facility] Jan 09, 2025 09:30 AM AMBULATORY - MEDICINE [facility] Jan 09, 2025 10:30 AM AMBULATORY - NONE [facility] Jan 10, 2025 09:00 AM AMBULATORY - MEDICINE [facility] Jan 11, 2025 02:00 PM AMBULATORY - REHAB MEDICIN E [facility] Jan 16, 2025 09:30 AM AMBULATORY - MEDICINE [facility] Jan 18, 2025 09:30 AM AMBULATORY - REHAB MEDICIN E [facility] Jan 18, 2025 10:30 AM AMBULATORY - SURGERY [facility] Jan 23, 2025 09:30 AM AMBULATORY - MEDICINE [facility] Jan 25, 2025 10:30 AM AMBULATORY - REHAB MEDICIN E [facility] Jan 30, 2025 09:00 AM AMBULATORY - REHAB MEDICIN E [facility] Jan 30, 2025 09:30 AM AMBULATORY - MEDICINE [facility] Jan 30, 2025 10:00 AM AMBULATORY - SURGERY [facility] Feb 06, 2025 09:00 AM AMBULATORY - REHAB MEDICIN E [facility] Feb 06, 2025 09:30 AM AMBULATORY - MEDICINE [facility] Feb 13, 2025 10:30 AM AMBULATORY - MEDICINE [facility] Feb 15, 2025 09:00 AM AMBULATORY - REHAB MEDICIN [facility] Active, Pending, and Scheduled Orders This section includes a listing of several types of active, pending, and scheduled orders, including clinic medications orders, diagnostic test orders, procedure orders and consult orders; where the start date of the order is 45 days before the date of the Encounter or 45 days after the date of theEncounter. The data comes from all CT treatment facilities. Test Date/Time Test Type Test [...] Type Comment Jan 10, 2025 09:[address] [facility] LDH PLASMA Specimen Type: PLASMA Comment: No hemolysis noted. Ordering Provider: KHOI GRIFFIN Report Released Date/Time: Jan 11, 2024 01:34 PM Reporting Lab: [address] [address] Performing Lab: [address] [address] LDH 149 U/L 125-243 Jan 10, 2025 09:[address] [facility] COMPREHENSIVE METABOLIC PANEL PLASMA Specimen Type: PLASMA Comment: No hemolysis noted. Ordering Provider: KHOI GRIFFIN Report Released Date/Time: Jan 11, 2024 01:34 PM Reporting Lab: [address] [address] Performing Lab: [address] [address] CREATININE 1.02 mg/dL 0.7-1.3 UREA NITROGEN 17.9 [...] 74.8 >60 Jan 10, 2025 09:22 AM [facility] CBC BLOOD Specimen Type: BLOOD No comment entered. Ordering Provider: KHOI GRIFFIN Report Released Date/Time: Jan 11, 2024 01:34 PM Reporting Lab: [address] [address] Performing Lab: [address] [address] WBC 6.4 10*3/uL 3.6-11.2 RBC 4.39 10*6/uL [...] 0.00-0. 20 Nov 19, 2024 02:[address] [facility] BASIC METABOLIC PANEL PLASMA Specimen Type: PL ASMA Comment: No hemolysis noted. Ordering Provider: BESSY HOYT Report Released Date/Time: Nov 19, 2024 06:00 AM Reporting Lab: [address] [address] Performing Lab: [address] [address] CREATININE 1.16 mg/dL 0.7-1.3 UREA NITROGEN 21.3 mg/dL 9.0-25.0 GLUCOSE 101 mg/dL H 72-99 SODIUM 133 meq/L L 136-145 POTASSIUM 4.4 meq/L 3.5-5 CHLORIDE 100 meq/L 98-107 CARBON DIOXIDE 21 meq/L L 22-31 CALCIUM 9.4 mg/dL 8.4-10.4 EGFR (CKD-EPI 2020) 64.5 >60 Nov 19, 2024 11:[address] [facility] BASIC METABOLIC PANEL PLASMA Specimen Type: PL ASMA Comment: No hemolysis noted. Ordering Provider: JEFFERSON VITAL Report Released Date/Time: Nov 19, 2024 11:44 AM Reporting Lab: [address] [address] Performing Lab: [address] [address] CREATININE 1.15 mg/dL 0.7-1.3 UREA NITROGEN 23.4 mg/dL 9.0-25.0 GLUCOSE 107 mg/dL H 72-99 SODIUM 132 meq/L L 136-145 POTASSIUM 4.1 meq/L 3.5-5 CHLORIDE 101 meq/L 98-107 CARBON DIOXIDE 23 meq/L 22-31 CALCIUM 9.2 mg/dL 8.4-10.4 EGFR (CKD-EPI 2020) 65.1 >60 Nov 19, 2024 11:54 AM [facility] CBC BLOOD Specimen Type: BLOOD Comment: SCAN OF SLIDE AGREES WITH AUTOMATED DIFF Ordering Provider: JEFFERSON VITAL Report Released Date/Time: Nov 19, 2024 11:44 AM Reporting Lab: [address] [address] Performing Lab: [address] [address] WBC 11.2 10*3/uL 3.6-11.2 RBC 3.49 10*6/uL [...] 0.00-0. 20 Nov 18, 2024 06:[address] [facility] MRSA SURVL NARES DNA NARES [...] Nov 18, 2024 03:43 PM Reporting Lab: [place] [address] [facility] [address] Performing Lab: [address] [address] MRSA SURVL NARES DNA Negative Negative Nov 16, 2024 08:28 AM [facility] TSH W/ REFLEX FT4 (STL) PLASMA Specimen Type: PLASMA No comment entered. Ordering Provider: ALONDRA BRYANT Report Released Date/Time: Nov 01, 2024 04:02 PM Reporting Lab: [place] [address] [facility] [address] Performing Lab: [place] [address] [facility] [address] TSH 1.991 u[IU]/mL 0.47-5 Nov 16, 2024 08:28 AM [facility] BASIC METABOLIC PANEL PLASMA Specimen Type: PL ASMA Comment: No hemolysis noted. Ordering Provider: ALONDRA BRYANT Report Released Date/Time: Nov 01, 2024 04:02 PM Reporting Lab: [place] [address] [facility] [address] Performing Lab: [facility] [address] [facility] [address] CREATININE 1.02 mg/dL 0.7-1.3 UREA NITROGEN 14.7 mg/dL 9.0-25.0 GLUCOSE 98 mg/dL 72-99 SODIUM 134 meq/L L 136-145 POTASSIUM 4.2 meq/L 3.5-5 CHLORIDE 100 meq/L 98-107 CARBON DIOXIDE 24 meq/L 22-31 CALCIUM 9.5 mg/dL 8.4-10.4 EGFR (CKD-EPI 2020) 75.2 >60 Vital Signs: All taken on the encounter date This section contains inpatient and outpatient Vital Signs collected on the date of the Encounter. Date/Time Temperature Pulse Blood Pressure Respiratory Rate SP02 Pain Height Weight Body Mass Index Source December 14, 2024 10:10 AM 98.3 64 138/73 18 99 0 69 210.9 31 [facility] Social History: Smoking Status (Most current) and Tobacco Use (All prior to encounter date) This section includes the most current, and the historical, smoking and tobacco- related health factors from the CT facility where the Encounter took place. Current Smoking Status This section includes the most current smoking, or tobacco-related health factor, from the CT facility where the Encounter took place. Date/Time Current Smoking Status Comment Janet cortez Aug 09, 2024 09:30 AM VA-TOBACCO USE FOR SARAI [employer] [facility] Tobacco Use History This section includes a history of the smoking, or tobacco-related health factors, that were collected on or before the date of the Encounter. The data comes from the CT facility where the Encounter took place. Date/Time Smoking Status/Tobacco Use Comment F catarino Aug 09, 2024 09:30 AM VA-TOBACCO USE FOR SARAI CIGARETTES [facility] Advance Directives: All historical and current Section Date Range: From patient's date of to the date document was created. This section includes ALL of a patient's completed or amended CT Advance and Rescinded Directives. The entries below indicate that a directive exists for the patient, but an actual copy is not included with this document. The data comes from all CT facilities. Date Advance Directives Provider Source Jun 12, [address] [facility] December 24, 2011 ADVANCE DIRECTIVE DISCUSSION TOMMY [...] the Encounter. The data comes from all CT treatment facilities. Date/Time Radiology Report Provider Source Nov 18, 2024 02:12 PM KNEE,RIGHT,1 OR 2 VIEWS: JOYCELYN SEPULVEDA [id number] -1945 M Ex Date: NOV 18, 2024@14:12 Req Phys: YOVANI DUNN Pat Loc: 5C PCU -[facility]/11-19-2024@07:05 Img Loc: [facility] RADIOLOGY SUITE Service: [address] [address] (Case [id number] COMPLETE) KNEE,RIGHT,1 OR 2 VIEWS (RAD Detailed) CPT:35531 Proc Modifiers : OR, RIGHT, AP & LAT Reason for Study: postop in OR R TKA Clinical History: Do films need to be ortho templated printed? No Report Status: Verified Date Reported: NOV 19, 2024 Date Verified: NOV 19, 2024 Batting Machine Operator Insulation E-Sig:/ES/Kuldip Decker MD Report: FINDINGS: Right knee replacement is noted and position appears satisfactory. Impression: Right knee replacement shows satisfactory position. Primary Interpreting Staff: Kuldip Decker MD, Radiologist (Batting Machine Operator Insulation) /QMB KULDIP DECKER [facility] Pathology Reports: +/- 30 days of [...] the Encounter. The data comes from all CT treatment facilities. Date/Time Pathology Report Provider Source [...] x 3.0 cm for soft tissue fragments. Dairy Powder Mixer Operator sections are submitted, following decalcification in RDO, in two cassettes A1-A2 MICROSCOPIC EXAM: ([place]) Microscopic examination of the sections submitted from right knee bone shows variable loss of articular cartilage with fibrillation and splitting. DIAGNOSIS: RIGHT KNEE BONE, RIGHT TOTAL KNEE ARTHROPLASTY: DEGENERATIVE CHANGES /es/ NECAT Umu RIVERS Pathologist Signed Nov 22, 2024@12:56 Performing Laboratory: Surgical Pathology Report Performed By: [facility] [address] [place] [address] CLIA# [id number] [address] [address] [place] [address] $FTR - - - - - - [...] - - JOYCELYN SEPULVEDA STANDARD FORM 515 ID:[id number] SEX:M :1945 AGE: 78 LOC:APFEE PCP: Alondra Bryant /brianda/ STUART RIVERS Pathologist Signed: 11/22/2024 12:56 STUART RIVERS [facility] Encounter Notes: All associated encounter notes This section contains the clinical notes associated to the Encounter. Date/Time Encounter Note(s) Provider Source December 14, 2024 06:20 AM ORTHOPEDIC SURGERY NOTE: LOCAL TITLE: ORTHOPEDIC STL STANDARD TITLE: ORTHOPEDIC SURGERY NOTE DATE OF NOTE: DECEMBER 14, 2024@06:20 ENTRY DATE: DECEMBER 14, 2024@06:20:47 AUTHOR: PERFECTO BOLES COSIGNER: URGENCY: STATUS: COMPLETED POST OPERATIVE VISIT: PROCEDURE: RTKA 11/21/2024 JOYCELYN [place], is a 78 year old MALE is here today for his first postoperative appointment status post right total knee arthroplasty performed 11/21/2024. Overall he is very happy with the outcome of the surgery. He states he is taking only a pain pill or so a day for his pain. He is icing and elevating but only once a day. He is not having any significant pain. He is walking with a dolomite walker. He denies any fever chills or any drainage coming from his surgical incision. He starts outpatient therapy 12/19/2024. RYAN. He states has been using the EZ stretch approximately 4 times daily and has found it helpful. He does have a history of a stroke with left-sided weakness which has made his recovery a bit more difficult. PAST MEDICAL HISTORY: 1) HTN - Hypertension ([facility] [id number]) 2) Hyperlipidemia ([facility] [id number]) 3) Sleep apnoea comment: using bipap 4) H/O: Stroke ([facility] [id number]) comment: L footdrop; wears brace; L leg weaker than R comment: using straight or quad cane 5) B-cell lymphoma comment: followed by hematology 6) Anxiety ([facility] [id number]) 7) Depression ([facility] [id number]) 8) Chronic kidney disease 9) Pes planus 10) Chronic post-traumatic stress disorder 11) Exposure to potentially hazardous substance 12) History of malignant neoplasm of skin 13) Sensorineural hearing loss of bilateral ears 14) Bilateral subjective tinnitus of ears Allergies Patient has answered NKA Medications Active Outpatient Medications (including Supplies): Active Outpatient Medications Status 1) ACETAMINOPHEN 325MG TAB TAKE TWO TABLETS BY MOUTH EVERY 6 ACTIVE HOURS CAUTION: DO NOT EXCEED 4000MG PER DAY ACETAMINOPHEN (APAP) FROM ALL MEDS. Indication: FOR PAIN 2) ASPIRIN 81MG EC TAB TAKE ONE TABLET BY MOUTH TWICE A DAY ACTIVE TAKE WITH FOOD. Indication: FOR CARDIOVASCULAR DISEASE 3) ATORVASTATIN CALCIUM 80MG TAB TAKE ONE-HALF TABLET BY MOUTH ACTIVE EVERY EVENING Indication: FOR HIGH CHOLESTEROL 4) BUPROPION HCL 300MG 24HR SA TAB TAKE ONE TABLET BY MOUTH ACTIVE ONCE A DAY SWALLOW WHOLE - DO NOT CRUSH OR CHEW. Indication: FOR DEPRESSION 5) CALCIUM 500MG (CA CARB-1.25GM) TAB TAKE TWO TABLETS BY MOUTH ACTIVE TWICE A DAY Indication: FOR CALCIUM SUPPLEMENTATION 6) CETIRIZINE HCL 10MG TAB TAKE ONE TABLET BY MOUTH ONCE A DAY ACTIVE Indication: FOR ALLERGY SYMPTOMS 7) CHLORHEXIDINE GLUCONATE 4% TOP LIQUID APPLY SMALL AMOUNT TO ACTIVE AFFECTED AREA(S) DIRECTED (TOPICAL USE ONLY) AVOID CONTACT WITH EYES. STARTING 5 DAYS BEFORE SURGERY, WASH WITH WASH IN THE SHOWER FROM THE NECK DOWN. REPEAT DAILY AND THE MORNING OF SURGERY BEFORE ARRIVING AT THE HOSPITAL.. DAY OF SURGERY: REPEAT BEFORE ARRIVING TO THE HOSPITAL. Indication: FOR SKIN DISINFECTION 8) CYCLOBENZAPRINE HCL 10MG TAB TAKE ONE TABLET BY MOUTH THREE ACTIVE TIMES A DAY NEEDED MAY CAUSE DROWSINESS. DO NOT DRINK ALCOHOL WHILE TAKING THIS MEDICATION. Indication: FOR MUSCLE SPASM 9) CYCLOBENZAPRINE HCL 5MG TAB TAKE ONE TABLET BY MOUTH THREE ACTIVE TIMES A DAY NEEDED MAY CAUSE DROWSINESS. DO NOT DRINK ALCOHOL WHILE TAKING THIS MEDICATION. Indication: FOR MUSCLE SPASM 10) DOCUSATE NA 50MG/SENNOSIDES 8.6MG TAB TAKE 1 TABLET BY MOUTH ACTIVE TWICE DAILY NEEDED HOLD FOR LOOSE STOOL/DIARRHEA. Indication: FOR SOFTENING STOOL 11) DULOXETINE HCL 30MG EC CAP TAKE THREE CAPSULES BY MOUTH ONCE ACTIVE A DAY DO NOT ABRUPTLY DISCONTINUE MEDICATION. Indication: FOR DEPRESSION 12) ERGOCALCIF 1,250MCG (D2-50,000UNIT) CAP TAKE ONE CAPSULE BY ACTIVE MOUTH EVERY WEEK Indication: FOR VITAMIN D DEFICIENCY 13) FINASTERIDE 5MG TAB TAKE ONE TABLET BY MOUTH ONCE A DAY ACTIVE SWALLOW WHOLE, DO NOT CRUSH, SPLIT, OR CHEW. Indication: FOR BENIGN PROSTATIC HYPERPLASIA 14) FLUTICASONE PROP 50MCG 120D NASAL INHL INSTILL 2 SPRAYS IN ACTIVE NOSTRIL(S) ONCE A DAY (MUST BE USED DIRECTED FOR MINIMUM OF 21 DAYS TO PROVIDE ADEQUATE BENEFITS) Indication: FOR RHINITIS 15) HYDROCHLOROTHIAZIDE 25MG TAB TAKE ONE TABLET BY MOUTH ONCE A ACTIVE DAY Indication: FOR HIGH BLOOD PRESSURE 16) LISINOPRIL 20MG TAB TAKE ONE TABLET BY MOUTH ONCE A DAY ACTIVE Indication: FOR HIGH BLOOD PRESSURE 17) MELOXICAM 7.5MG TAB TAKE ONE TABLET BY MOUTH ONCE A DAY ACTIVE Indication: FOR OSTEOARTHRITIS 18) MUPIROCIN 2% OINT APPLY SPARINGLY TO AFFECTED AREA(S) TWICE ACTIVE A DAY EXTERNAL USE ONLY. APPLY TO EACH NOSTRIL TWICE EVERY DAY (USE SEPARATE COTTON TIP FOR EACH NOSTRIL ONCE IN THE MORNING AND ONCE IN THE EVENING) FOR (5) DAYS LEADING UP TO YOUR SURGERY. THEN APPLY IT ONE TIME ON THE MORNING OF SURGERY. Indication: surgical indication 19) OXYCODONE HCL 5MG TAB TAKE ONE TABLET BY MOUTH EVERY 4 HOURS ACTIVE NEEDED SECOND LINE NEEDED FOR PAIN. MAY CAUSE CONSTIPATION Indication: FOR POST-OPERATIVE PAIN 20) SODIUM FLUORIDE 1.1% TOOTHPASTE USE DIRECTED BY MOUTH ACTIVE TWICE A DAY TOOTHPASTE (DO NOT SWALLOW) APPLY A PEA-SIZED AMOUNT OF THE PASTE TO A TOOTHBRUSH AND BRUSH THOROUGHLY FOR TWO MINUTES, AT MORNING AND AT NIGHT; SPIT, DO NOT RINSE. DO NOT EAT, DRINK, OR RINSE FOR 30 MINUTES AFTER USE. Indication: FOR DENTAL CARIES 21) SUNSCREEN 30-50/PHY BLOCK/PABA-F LOTION APPLY LIBERALLY TO ACTIVE AFFECTED AREA(S) DIRECTED (EXTERNAL USE ONLY) Indication: FOR SKIN PROTECTION 22) TAMSULOSIN HCL 0.4MG CAP TAKE ONE CAPSULE BY MOUTH EVERY ACTIVE EVENING APPROXIMATELY 30 MINUTES AFTER THE SAME MEAL EACH DAY Indication: FOR BENIGN PROSTATIC HYPERPLASIA 23) TRAMADOL HCL 50MG TAB TAKE 1 TABLET BY MOUTH FOUR TIMES A ACTIVE DAY NEEDED FIRST LINE NEEDED Indication: FOR PAIN 24) TRAZODONE HCL 50MG TAB TAKE ONE-HALF TABLET BY MOUTH AT ACTIVE BEDTIME Indication: FOR SLEEP METAL ALLERGIES: ===== REVIEW OF SYSTEMS: General: (-)fever/chills, (-)unexplained weight loss, (-) weight gain HEENT: (-) ear pain, (-)sore throat, (-)rhinorrhea, (-)cough Chest: (-) CP, (-) SOB Abdomen:(-) abdominal pain, (-)nausea/vomiting, (-) constipation, (-)diarrhea Musc: (-)edema Skin: (-)rash Psych: (-) dysphoria, (-) anxiety, (-) sleep disturbance Neuro: (-) headache, (-) dizziness/lightheadedness, (-) numbness, (-) weakness : (-) dysuria, (-) discharge,(-) nocturia, (-)frequency, (-) gross hematuria Endo: (-) polyuria, (-)polydipsia ===== Vital Signs: Temp: 98.3 F [36.8 C] (12/14/2024 10:10) Pulse: 64 (12/14/2024 10:10) BP: 138/73 (12/14/2024 10:10) RESP: 18 (12/14/2024 10:10) Pain: 0 (12/14/2024 10:10) Height: 69 in [175.3 cm] (12/14/2024 10:10) Weight: 210.9 lb [95.66 kg] (12/14/2024 10:10) BMI:31.2 CRE:CREATININE 1.16 mg/dL 11/19/2024 14:00 HBA1C: HGA1C 5.9 % 10/27/2024 10:30 EXAMINATION: Constitutional: Patient alert and oriented x3, well-developed, well-nourished / obese and in no acute distress. mood is pleasant and appropriate ambulation: antalgic respirations: even and unlabored hearing: able to hear spoken word skin intact Musculoskeletal exam: Right knee: Midline surgical incision well-approximated with a few scabs noted. No erythema noted. Slight edema noted. No pain with palpation. Range of motion is 5 to 105 degrees. No swelling of calf or ankle. Negative Homans' sign. Distally neurovascularly intact with normal sensation, pulses, color, and capillary refill. ===== PLAN: The anatomic basis and natural history of the problem were discussed with the patient. I reviewed the problem with the patient today, going over the diagnosis, prognosis, and treatment options. The patient conveyed an understanding of the condition. The following recommendations were made: - physical therapy, home exercise program outpatient PT scheduled: 12/19/2024 - mindfulness when getting up from chair and sitting down to use muscles. Try not to push off or plop down. -do not immerse wound in water and soak. May shower and clean but do not soak in water until completely healed. Do not apply any lotion, antibiotic cream or Vaseline to incision until completely healed. -call for increased redness, swelling, tenderness or drainage. - Discussed at length: lifetime antibiotic prophylaxis (antibiotics taken before the procedure has begun). Generally, an antibiotic is taken one hour prior to the procedure: including dental cleaning, be sure to let your Doctor or Dentist know that you have had a joint replacement. Ask them about antibiotic needs before your procedure. To alert us of upcoming procedures, and will gladly place antibiotic orders at our Pharmacy for you. Should you have questions or concerns, please contact us at [phone]. Encourage patient to walk heel toe to work on extension of his right leg. Also encouraged him to have a dolomite walker closer to his body than walking with it so far out in front of him. -Patient is hoping to discuss a left total knee arthroplasty at his next appointment. - f/u 02/23/2025 with imaging. Patient aware this appointment is at and to arrive early and obtain imaging before the appointment. Xray orders have been placed. Patient aware to call with any questions or concerns. Patient verbalized understanding and agreed with the plan of care outlined above. /brianda/ PERFECTO PACK- Advanced Practice Nurse, Orthopedics Signed: 12/14/2024 17:03 PERFECTO BOLES [facility]
--- OUTSIDE RECORDS SUMMARY | 2024-12-19 06:00 | XMS_ITS | Encounter Summary ---
Author Name [facility] [place] [facility] [place] [facility] [place] Address [address] [place] [id number] Care Team Providers Care Land Acquisition Manager Name Role Phone KOLE GARY Primary Care [...] Patient's Relationship to Policy Wiseman AUNG GOLD [employer] (WNR) MEDICARE ADVANTAGE [employer] (WNR) Aug 03, 2017 [employer] (WN) [id number] [phone] FR RAE SEPULVEDA PATIENT [employer] (WNR) MEDICARE ADVANTAGE MCR (WNR) December 01, 2022 [id number] [phone] FR RAE SEPULVEDA PATIENT [employer] (WNR) MEDICARE ADVANTAGE MCR (WNR) December 01, 2022 [id number] [phone] FR COCO ANK PATIENT [employer] (WNR) MEDICARE ADVANTAGE MCR ( WNR) December 01, 2022 [id number] [phone] [id number] FR RAE SEPULVEDA PATIENT [employer] (WNR) MEDICARE ADVANTAGE [employer] (WNR) Aug 03, 2021 [id number] [phone] FR RAE SEPULVEDA PATIENT [employer] [place] (WNR) MEDICARE ADVANTAGE [employer] (WNR) Aug 03, 2017 [id number] [phone] FR RAE SEPULVEDA PATIENT AUN[employer] [place] (WNR) MEDICARE ADVANTAGE [employer] (WNR) Aug 03, 2017 [id number] [phone] FR RAE SEPULVEDA PATIENT Selected Encounter This section includes the information on record at [place] for the Encounter. Date/Time Encounter Type Encounter Description Reason Provider Source December 19, 2024 11:00 AM THERAPEUTIC EXERCISES PHYSICAL THERAPY ICD-10-CM Z47.1 Aftercare following joint replacement surgery ANA COLES [facility] Encounter Template Text not used by [place] Assessments - Encounter Diagnoses This section includes the primary and secondary diagnoses documented for the Encounter. Date/Time Primary/Secondary Diagnosis Diagnosis Name Provider Source December 19, 2024 03:41 PM PRIMARY Aftercare following joint replacement surgery JOSH COLES [facility] Plan of Treatment: Future Appointments (+ 6 months) and Future Tests (+/- 45 days) The Plan of Treatment section includes future care activities for the patient from all [place] [facility]. This section includes future appointments and future orders which are active, pending or scheduled. Future Appointments This section includes appointments that were scheduled to occur 6 months from the date of the Encounter, up to a maximum of 20 appointments. The data comes from all [place] treatment facilities. Appointment Date/Time Appointment Type Appointme nt Facility Name December 28, 2024 02:45 PM AMBULATORY - MEDICINE [facility] Jan 02, 2025 10:30 AM AMBULATORY - REHAB MEDICIN E [facility] Jan 09, 2025 09:30 AM AMBULATORY - MEDICINE [facility] Jan 09, 2025 10:30 AM AMBULATORY - NONE [facility] Jan 10, 2025 09:00 AM AMBULATORY - MEDICINE [facility] Jan 11, 2025 02:00 PM AMBULATORY - REHAB MEDICIN E [facility] Jan 16, 2025 09:30 AM AMBULATORY - MEDICINE [facility] Jan 18, 2025 09:30 AM AMBULATORY - [facility] Jan 18, 2025 10:30 AM AMBULATORY - SURGERY [facility] Jan 23, 2025 09:30 AM AMBULATORY - MEDICINE [facility] Jan 25, 2025 10:30 AM AMBULATORY - REHAB MEDICIN E [facility] Jan 30, 2025 09:00 AM AMBULATORY - REHAB MEDICIN E [facility] Jan 30, 2025 09:30 AM AMBULATORY - MEDICINE [facility] Jan 30, 2025 10:00 AM AMBULATORY - SURGERY [facility] Feb 06, 2025 09:00 AM AMBULATORY - REHAB MEDICIN E [facility] Feb 06, 2025 09:30 AM AMBULATORY - MEDICINE [facility] Feb 13, 2025 10:30 AM AMBULATORY - MEDICINE [facility] Feb 15, 2025 09:00 AM AMBULATORY - REHAB MEDICIN E [facility] Feb 20, 2025 09:00 AM AMBULATORY - REHAB MEDICIN E [facility] Feb 23, 2025 10:00 AM AMBULATORY - SURGERY [facility] Active, Pending, and Scheduled Orders This section includes a listing of several types of active, pending, and scheduled orders, including clinic medications orders, diagnostic test orders, procedure orders and consult orders; where the start date of the order is 45 days before the date of the Encounter or 45 days after the date of theEncounter. The data comes from all [place] treatment [facility]. Test Date/Time Test Type Test Details Facility Name Nov 18, 2024 06:00 AM Laboratory - Blood Bank Order TYPE & SCREEN - LAB BLOOD STAT WC [facility] Lab Results: +/- 30 days of the encounter This section includes the Chemistry and Hematology Lab Results on record with [place] for the patient. Radiology Reports and Pathology Reports are provided separately, in subsequent sections. Lab Results This section contains the Chemistry/Hematology Results that were resulted 30 days before or 30 daysafter the date of the Encounter. Date/Time Source Result Type Result - Unit Interpretation Reference Range Specimen Type Comment Jan 10, 2025 09:22 AM [facility] LDH PLASMA Specimen Type: PLASMA Comment: No hemolysis noted. Ordering Provider: KHOI GRIFFIN Report Released Date/Time: Jan 11, 2024 01:34 PM Reporting Lab: [address] [id number] Performing Lab: [address] [address] LDH 149 U/L 125-243 Jan 10, 2025 09:22 AM [facility] COMPREHENSIVE METABOLIC PANEL PLASMA Specimen Type: PLASMA Comment: No hemolysis noted. Ordering Provider: KHOI GRIFFIN Report Released Date/Time: Jan 11, 2024 01:34 PM Reporting Lab: [address] [address] Performing Lab: [address] [address] CREATININE 1.02 mg/dL 0.7-1.3 UREA NITROGEN 17.9 [...] 74.8 >60 Jan 10, 2025 09:22 AM [facility] CBC BLOOD Specimen Type: BLOOD No comment entered. Ordering Provider: KHOI GRIFFIN Report Released Date/Time: Jan 11, 2024 01:34 PM Reporting Lab: [address] [address] Performing Lab: [address] [address] WBC 6.4 10*3/uL 3.6-11.2 RBC 4.39 10*6/uL [...] 0.60 BASOPHILS, ABSOLUTE 0.05 10*3/uL 0.00-0. 20 Social History: Smoking Status (Most current) and Tobacco Use (All prior to encounter date) This section includes the most current, and the historical, smoking and tobacco- related health factors from the [place] facility where the Encounter took place. Current Smoking Status This section includes the most current smoking, or tobacco-related health factor, from the [place] facility where the Encounter took place. Date/Time Current Smoking Status Comment Janet cortez Aug 09, 2024 09:30 AM VA-TOBACCO USE FOR [facility] Tobacco Use History This section includes a history of the smoking, or tobacco-related health factors, that were collected on or before the date of the Encounter. The data comes from the [place] facility where the Encounter took place. Date/Time Smoking Status/Tobacco Use Comment F catarino Aug 09, 2024 09:30 AM VA-TOBACCO USE FOR [facility] Advance Directives: All historical and current Section Date Range: From patient's date of to the date document was created. This section includes ALL of a patient's completed or amended VA Advance and Rescinded Directives. The entries below indicate that a directive exists for the patient, but an actual copy is not included with this document. The data comes from all [place] facilities. Date Advance Directives Provider Source Jun 12, [address] [facility] December 24, 2011 ADVANCE DIRECTIVE DISCUSSION TOMMY VAZQUEZ [facility] Pathology Reports: +/- 30 days of the [...] the Encounter. The data comes from all [place] treatment facilities. Date/Time Pathology Report Provider Source [...] x 3.0 cm for soft tissue fragments. Car Deliverer sections are submitted, following decalcification in RDO, in two cassettes A1-A2 MICROSCOPIC EXAM: ([place]) Microscopic examination of the sections submitted from right knee bone shows variable loss of articular cartilage with fibrillation and splitting. DIAGNOSIS: RIGHT KNEE BONE, RIGHT TOTAL KNEE ARTHROPLASTY: DEGENERATIVE CHANGES /brianda/ STUART RIVERS Pathologist Signed Nov 22, 2024@12:56 Performing Laboratory: Surgical Pathology Report Performed By: [facility] CLIA# [id number] 5 [facility] [address] [place] [address] $FTR - - - - - - - - - - - - - - - - - - - - - - - - - - - - - - - - - - - - - - - - (End of report) STUART RIVERS MD [facility] Date Nov 22, 2024 - - - - - - - - - - - - - - - - - - - - - - - - - - - - - - - - - - - - - - - - JOYCELYN SEPULVEDA STANDARD FORM 515 ID:[id number] SEX:M :1945 AGE: 78 LOC:[facility] PCP: Alondra Bryant /brianda/ STUART RIVERS Pathologist Signed: 11/22/2024 12:56 STUART RIVERS [facility] Encounter Notes: All associated encounter notes This section contains the clinical notes associated to the Encounter. Date/Time Encounter Note(s) Provider Source December 19, 2024 11:04 AM PHYSICAL THERAPY N OTE: LOCAL TITLE: PT ASSESSMENT ST STANDARD TITLE: PHYSICAL THERAPY NOTE DATE OF NOTE: DECEMBER 19, 2024@11:04 ENTRY DATE: DECEMBER 19, 2024@11:04:29 AUTHOR: TERRELL COLES COSIGNER: URGENCY: STATUS: COMPLETED PHYSICAL THERAPY EVALUATION Chart Review: Imaging: Chart Review: PMH includin) HTN - Hypertension (SCT 90633767) 2) Hyperlipidemia (SCT 88439752) 3) Sleep apnoea 4) H/O: Stroke (SCT 297330263) 5) B-cell lymphoma 6) Anxiety (SCT 08844047) 7) Depression (SCT 28430929) 8) Chronic kidney disease 9) Pes planus 10) Chronic post-traumatic stress disorder 11) Exposure to potentially hazardous substance 12) History of malignant neoplasm of skin 13) Sensorineural hearing loss of bilateral ears 14) Bilateral subjective tinnitus of ears Provisional dx: Z47.1 Start of Care: 12/19/24 Reevaluation due: POC through: Visits to date: 1 No shows/cancellations: 0 Treatment time: 7288-8908 Total: 50 mins. Evaluation: 15 mins. Therapeutic exercise: 35 mins. 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 Reports overall pain has been minimal and states he is very happy with the outcome of his surgery. Started using a rollator since his surgery but typically uses quad cane prior to surgery. hx of CVA ~15 years ago with residual L sided weakness. Denies difficulty sleeping at night due to pain. Reports has not had to take any medications for pain lately since R TKA. --Pain Increased With: walking, weight bearing --Pain Decreased With: rest, cold pack --Occupation: n/a --Pain Rating (0-10): Current: 0/10 Best: 0/10 Worst: 4/10 Location: R knee --Patient goal(s): Pt reports wants to get back to walking with cane again Objective: Assistive Device: rollator walker Gait: decreased stance time RLE, L knee hyperextension 2/2 hemiparesis Posture: L knee genus varus, L foot drop 2/2 chronic hemiparesis Squat: NT Patellar Mobility: Right WFL all plants Left WFL all planes Knee AROM Right: 0-2-112 Left: 0-95 with muscle spasms Strength: Right Left Iliopsoas 4/5 3-/5 Quads 4+/5 4+/5 Hamstrings 4+/5 4+/5 Glut max Glut med Ankle dorsiflexion 5/5 2+/5 Muscle length: Right Left Quads Hamstrings mod tightness mod tightness ITB Treatment: Initial Evaluation Therapeutic exercise: Pt was instructed in and demonstrated independence with current HEP x 1 (pt was provided with handouts): 1. Seated hamstring stretch RLE, 2x20 sec hold 2. Supine quad set with towel under heel, 3x10 reps 3 sec hold 3. Supine RLE straight leg raise, 2x10 reps 4. Sidelying hip abduction AROM RLE, 2x10 reps 5. Supine RLE heel slides stretch using belt/sheet, 10x10 sec hold 6. Sit<>stand with UE assist as needed, cues to slowly control descent when sitting down and ensuring that B feet are in line with one another Other interventions: -stationary bike x10 min AAROM, seat level 5, no added resistance Assessment: Patient presents to Pt s/p R TKA with impairments in strength, ROM, and pain and gait abnormalities. Pt would benefit from PT to address impairments with progressive therapeutic exercise program including strengthening, ROM/stretching activities, gait training, and modalities as needed. Patient verbalizes and demos understanding of education provided this session and agreeable to PT POC. Offered 2x/week, however due to drive time and distance away from clinic, patient opted for 1x/week for PT follow-ups --Complexity of eval: [x] Low [] Medium [] High -Complexity of eval due to: -Co-morbidities: -Personal Factors: -Examination: -Elements addressed: strength, ROM -Outcome measure: -Clinical Presentation: - [x] Stable and/or Uncomplicated - [] Evolving Clinical Presentation with Changing Clinical Characteristics: - [] Unstable And Unpredictable Characteristics Physical Therapy Diagnosis: Force production deficit Goals: Short term: (4 weeks) 1) Pt will demonstrate independence with current HEP x 1 2) Pt will verbalize pain at worst 3) Pt will demo R knee AROM = 0-120 deg shelter: (12 weeks) 1) Pt will demonstrate independence with final HEP x 1 2) Pt will verbalize pain at worst 3) Pt will demo R knee strength = 5/5 --REHABILITATION POTENTIAL: [] POOR - Limited potential for improvement. [] GUARDED - There exists a question of the potential for improvement [] FAIR - Presents with the potential to improve in some areas while other deficits may remain unchanged. [] GOOD - Presents with the potential to improve to a level of functional independence, though may continue to demonstrate certain minimal limitations with consistent performance of HEP. [x] EXCELLENT - Presents with the potential to fully recover with no residual deficits. --CONTINUED SKILLED THERAPY NEEDED TO ADDRESS THE FOLLOWING IMPAIRMENTS/FUNCTIONAL LIMITATIONS AND EDUCATIONAL NEEDS: [x] Pain: [x] Physiological impairments of: [] Balance: [x] ROM: [x] Strength: [] Other: [] ADL deficits: [] WB activities: [] Self-care: [] Other: [x] Education needs: Individual(s) involved: [x] Patient: [] Caregiver: [x] Achieving (I) with home program: [x] Gain further of understanding of self-management of condition: [] Self-Care: [] Caregiver education: [] Other: Equipment Pt Currently Has: TBD Plan: 1-2x/week for manual therapy, patient education, therapeutic exercise and activity, gait training, neuro reeducation and modalities PRN. I f this is the last PT visit then this documentation serves as the discharge note as well. --PATIENT EDUCATION DOCUMENTATION: Person(s) who received education: [x] Patient; [] Family: [] Other: Education Topic/Teaching Needs: [x] Home program: [x] Why compliance with home program is important [] Regarding automated call/letter regarding scheduled appointment; two no show policy; late arriving for appointment; follow up appointment lengths. [] TENS [x] Nature of condition [] Other: Methods used Included: [x] Handout(s): [x] Home program: [] Why compliance with home program is important [] Regarding automated call/letter regarding scheduled appointment; two no show policy; late arriving for appointment; follow up appointment lengths. [] TENS [] Other: [x] One-on one: [x] Verbal instructions [x] Visual instructions [] Tactile cues. [] Other: Teaching Outcomes: [x] Good; [] Fair; [] Poor [x] Patient acknowledged understanding of instruction [] Family/Other acknowledged understanding of instruction /es/ TERRELL COLES PHYSICAL THERAPIST Signed: 12/19/2024 15:42 TERRELL COLES [facility]
--- OUTSIDE RECORDS SUMMARY | 2024-12-28 09:45 | XMS_ITS | Encounter Summary ---
Author Name [place] Address [address] [place] [address] Care Team Providers Care Rehabilitation Consultant Name Role Phone KOLE GARY Primary Care [...] AUNG [facility] (WNR) MEDICARE [facility] (WNR) Aug 03, 2017 [facility] ([facility]) [id number] [phone] [id number] FR RAE SEPULVEDA PATIENT HUMANA [facility] (WNR) MEDICARE ADVANTAGE [facility] (WNR) December 01, 2022 [id number] [phone] [id number] FR RAE SEPULVEDA PATIENT HUMANA [facility] (WNR) MEDICARE ADVANTAGE [facility] (WNR) December 01, 2022 [id number] [phone] [id number] FR COCO ANK PATIENT HUMANA [facility] (WNR) MEDICARE ADVANTAGE [facility] ( WNR) December 01, 2022 [id number] [phone] FR RAE SEPULVEDA PATIENT HUMANA [facility] (WNR) MEDICARE ADVANTAGE [facility] (WNR) Aug 03, 2021 [id number] [phone] FR RAE SEPULVEDA PATIENT HUMANA [facility] (WNR) MEDICARE ADVANTAGE [facility] (WNR) Aug 03, 2017 [id number] [phone] FR RAE SEPULVEDA PATIENT HUMANA [facility] ([place]) MEDICARE ADVANTAGE [facility] (WNR) Aug 03, 2017 [id number] [phone] FR RAE SEPULVEDA PATIENT Selected Encounter This section includes the information on record at [place] for the Encounter. Date/Time Encounter Type Encounter Description Reason Provider Source December 28, 2024 02:45 PM OFFICE O/P EST LOW 20 MIN DERMATOLOGY ICD-10-CM Z85.820 Personal history of malignant melanoma of skin TORRIE LARKIN Encounter Template Text not used by [place] Assessments - Encounter Diagnoses This section includes the primary and secondary diagnoses documented for the Encounter. Date/Time Primary/Secondary Diagnosis Diagnosis Name Provider Source December 28, 2024 03:11 PM PRIMARY Personal history of malignant melanoma of skin MULLIGANALAINA [facility] December 28, 2024 03:11 PM SECONDARY Actinic keratosis ISAAKALAINA aKlli [facility] December 28, 2024 03:11 PM SECONDARY Personal history of other malignant neoplasm of skin ISAAKALAINA G [facility] Plan of Treatment: [...] Date/Time Appointment Type Appointme nt Facility Name Jan 02, 2025 10:30 AM AMBULATORY - REHAB [facility]IC[facility] Jan 09, 2025 09:30 AM AMBULATORY - MEDICINE [facility] Jan 09, 2025 10:30 AM AMBULATORY - NONE [facility] Jan 10, 2025 09:00 AM AMBULATORY - MEDICINE [facility] Jan 11, 2025 02:00 PM AMBULATORY - REHAB MEDICIN E [facility] Jan 16, 2025 09:30 AM AMBULATORY - MEDICINE [facility] Jan 18, 2025 09:30 AM [facility] Jan 18, 2025 10:30 AM AMBULATORY - SURGERY [facility] Jan 23, 2025 09:30 AM AMBULATORY - MEDICINE [facility] Jan 25, 2025 10:30 AM [facility] Jan 30, 2025 09:00 AM AMBULATORY - REHAB [facility]IN [facility] Jan 30, 2025 09:30 AM AMBULATORY - MEDICINE [facility] Jan 30, 2025 10:00 AM AMBULATORY - SURGERY [facility] Feb 06, 2025 09:00 AM AMBULATORY - REHAB [facility] Feb 06, 2025 09:30 AM AMBULATORY - MEDICINE [facility] Feb 13, 2025 10:30 AM AMBULATORY - MEDICINE [facility] Feb 15, 2025 09:00 AM AMBULATORY - REHAB [facility] Feb 20, 2025 09:00 AM AMBULATORY - REHAB [facility] Feb 23, 2025 10:00 AM AMBULATORY - SURGERY [facility] Feb 27, 2025 09:30 AM AMBULATORY - MEDICINE [facility] Active, Pending, and Scheduled Orders This section includes a listing of several types of active, pending, and scheduled orders, including clinic medications orders, diagnostic test orders, procedure orders and consult orders; where the start date of the order is 45 days before the date of the Encounter or 45 days after the date of theEncounter. The data comes from all [place] treatment facilities. Test Date/Time Test Type Test Details Facility Name Nov 18, 2024 06:00 AM Laboratory - Blood Bank Order TYPE & SCREEN - LAB BLOOD STAT WC [facility] Lab Results: +/- [...] Type Comment Jan 10, 2025 09:22 AM [facility] COMPREHENSIVE METABOLIC PANEL PLASMA Specimen Type: PLASMA Comment: No hemolysis noted. Ordering Provider: KHOI GRIFFIN Report Released Date/Time: Jan 11, 2024 01:34 PM Reporting Lab: [facility] [address] [facility] [facility] [phone] Performing Lab: [address] [address] CREATININE 1.02 mg/dL 0.7-1.3 UREA NITROGEN 17.9 [...] 74.8 >60 Jan 10, 2025 09:22 AM [facility] LDH PLASMA Specimen Type: PLASM A Comment: No hemolysis noted. Ordering Provider: KHOI GRIFFIN Report Released Date/Time: Jan 11, 2024 01:34 PM Reporting Lab: [facility] [address] [facility] [phone] Performing Lab: [address] [address] LDH 149 U/L 125-243 Jan 10, 2025 09:22 AM [facility] CBC BLOOD Specimen Type: BLOOD No comment entered. Ordering Provider: KHOI GRIFFIN Report Released Date/Time: Jan 11, 2024 01:34 PM Reporting Lab: [facility] [address] [address] Performing Lab: [facility] [address] [address] WBC 6.4 10*3/uL 3.6-11.2 RBC 4.39 10*6/uL [...] 0.60 BASOPHILS, ABSOLUTE 0.05 10*3/uL 0.00-0. 20 Advance Directives: All historical [...] 12, 2016 ADVANCE DIRECTIVE [address] [facility] December 24, 2011 ADVANCE DIRECTIVE DISCUSSION TOMMY VAZQUEZ [facility] Encounter Notes: All associated encounter notes This section contains the clinical notes associated to the Encounter. Date/Time Encounter Note(s) Provider Source December 28, 2024 03:03 PM DERMATOLOGY NOTE: LOCAL TITLE: DERMATOLOGY NOTE STANDARD TITLE: DERMATOLOGY NOTE DATE OF NOTE: DECEMBER 28, 2024@15:03 ENTRY DATE: DECEMBER 28, 2024@15:03:26 AUTHOR: ALAINA MULLIGAN EXP COSIGNER: TORRIE LARKIN URGENCY: STATUS: COMPLETED DERMATOLOGY NOTE Has ADDENDA [place] [facility] [place] JOYCELYN SEPULVEDA is a 79 year old WHITE MALE with hx of melanoma 2014 and NMSC (see below), DLBCL, presenting for FBSE. No skin concerns today. 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 - nBCC R lateral neck s/p ED&C 01/2021 - nBCC L upper back s/p ED&C 01/2021 - BCC/SCC L episcopal, L forehead, R inferior antihelix, L superior [...] non-healing sores PE: Multiple gritty pink papules on nasal tip, L cheek, forehead Trunk with mclaughlin stuck on appearing papules Trunk with several regular brown macules Head/neck/trunk with numerous WHSS No supraclavicular, cervical, axillary LAD Otherwise: General Appearance: Well-appearing MALE, NAD Face: wnl Ears: wnl Scalp, Hair: wnl Neck: wnl Chest: wnl Abd: wnl Back: wnl Arms: wnl Lower legs: wnl A/P: #Actinic keratoses - Discussed precancerous etiology with patient - LN2 to 1 lesion on nasal tip x8s - Start Efudex BID x2 weeks to cheeks and forehead in the fall #Hx of NMSC #Hx of melanoma - Melanoma R ear 1.1mm s/p excision 08/2014 - Numerous NMSC - NER today - ABCDEs reviewed - Self check monthly - MD check regularly - Photoprotect as above RTC 3 months /brianda/ Alaina Mulligan MD Dermatology Resident Signed: 12/28/2024 15:12 /brianda/ Torrie Larkin MD GARNETTER Cosigned: 12/28/2024 15:15 12/28/2024 ADDENDUM STATUS: COMPLETED Discussed case with resident. Agree with history, physical examination, assessment, and plan. /brianda/ Torrie Larkin MD GARNETTER Signed: 12/28/2024 15:15 ALAINA MULLIGAN [facility]
--- OUTSIDE RECORDS SUMMARY | 2025-01-02 05:30 | XMS_ITS | Encounter Summary ---
Author Name [place] Address [address] [place] [id number] Care Team Providers Care Technical Publications Writer Name Role Phone KOLE GARY Primary Care [...] Patient's Relationship to Policy Wiseman AUNG GOLD [facility] (WNR) MEDICARE ADVANTAGE [facility] (WNR) Aug 03, 2017 [facility] (WN) [id number] [phone] [id number] FR RAE SEPULVEDA PATIENT HUMANA [facility] (WNR) MEDICARE ADVANTAGE [facility] (WNR) December 01, 2022 [id number] [phone] FR RAE SEPULVEDA PATIENT HUMANA [facility] (WNR) MEDICARE ADVANTAGE [facility] (WNR) December 01, 2022 [id number] [phone] [id number] FR COCO ANK PATIENT HUMANA [facility] (WNR) MEDICARE ADVANTAGE [facility] ( WNR) December 01, 2022 [id number] [phone] [id number] FR RAE SEPULVEDA PATIENT HUMANA [facility] (WNR) MEDICARE ADVANTAGE [facility] (WNR) Aug 03, 2021 [id number] [phone] FR RAE SEPULVEDA PATIENT AUNG [place] (WNR) MEDICARE ADVANTAGE [facility] (WNR) Aug 03, 2017 [id number] [phone] FR RAE SEPULVEDA PATIENT AUNG [place] (WNR) MEDICARE ADVANTAGE [facility] (WNR) Aug 03, 2017 [id number] [phone] FR RAE SEPULVEDA PATIENT Selected Encounter This section includes the information on record at [place] for the Encounter. Date/Time Encounter Type Encounter Description Reason Provider Source Jan 02, 2025 10:30 AM THERAPEUTIC EXERCISES PHYSICAL THERAPY ICD-10-CM Z47.1 Aftercare following joint replacement surgery ANA COLES [facility] Encounter Template Text not used by [place] Assessments - Encounter Diagnoses This section includes the primary and secondary diagnoses documented for the Encounter. Date/Time Primary/Secondary Diagnosis Diagnosis Name Provider Source Jan 02, 2025 12:03 PM PRIMARY Aftercare following joint replacement surgery JOSH COLES [facility] Plan of Treatment: Future Appointments (+ 6 months) and Future Tests (+/- 45 days) The Plan of Treatment section includes [facility] care [facility] the [facility] [place] [facility] This section includes future appointments and future orders which are active, pending or scheduled. Future Appointments This section includes appointments that were scheduled to occur 6 months from the date of the Encounter, up to a maximum of 20 appointments. The data comes from all [place] treatment facilities. Appointment Date/Time Appointment Type Appointme nt Facility Name Jan 09, 2025 09:30 AM AMBULATORY - MEDICINE [facility] Jan 09, 2025 10:30 AM AMBULATORY - NONE . [facility] Jan 10, 2025 09:00 AM AM[facility]ORY - [facility] Jan 11, 2025 02:00 PM AMBULATORY - REHAB MEDICIN E [facility] Jan 16, 2025 09:30 AM AMBULATORY - MEDICINE [facility] Jan 18, 2025 09:30 AM AMBULATORY - REHAB MEDICIN E [facility] Jan 18, 2025 10:30 AM AMBULATORY - SURGERY [facility] Jan 23, 2025 09:30 AM AMBULATORY - MEDICINE [facility] Jan 25, 2025 10:30 AM [facility] Jan 30, 2025 09:00 AM AMBULATORY - REHAB MEDICIN [facility] Jan 30, 2025 09:30 AM AMBULATORY - MEDICINE [facility] Jan 30, 2025 10:00 AM [facility] Feb 06, 2025 09:00 AM AMBULATORY - REHAB MEDICIN E [facility] Feb 06, 2025 09:30 AM AMBULATORY - MEDICINE [facility] Feb 13, 2025 10:30 AM AMBULATORY - MEDICINE [facility] Feb 15, 2025 09:00 AM AMBULATORY - REHAB MEDICIN E [facility] Feb 20, 2025 09:00 AM AMBULATORY - REHAB MEDICIN E [facility] Feb 23, 2025 10:00 AM AMBULATORY - SURGERY [facility] Feb 27, 2025 09:30 AM AMBULATORY - MEDICINE [facility] Mar 30, 2025 01:15 PM AMBULATORY - MEDICINE [facility] Active, Pending, and Scheduled Orders This [...] data comes from all [place] treatment facilities. Test Date/Time Test Type Test Details Facility Name Nov 18, 2024 06:00 AM Laboratory - Blood Bank Order TYPE & SCREEN - LAB BLOOD STAT WC [facility] Lab Results: +/- 30 days of the encounter This section includes the Chemistry and Hematology Lab Results on record with [place] for the patient. Radiology Reports and Pathology Reports are provided separately, in subsequent sections. Lab Results This section contains the Chemistry/Hematology Results that were resulted 30 days before or 30 daysafter the date of the Encounter. Date/Time Source Result Type Result - Unit Interpretation Reference Range Specimen Type Comment Jan 10, 2025 09:[address] [facility] LDH PLASMA Specimen Type: PLASMA Comment: No hemolysis noted. Ordering Provider: KHOI GRIFFIN Report Released Date/Time: Jan 11, 2024 01:34 PM Reporting Lab: [address] [address] Performing Lab: [address] [address] LDH 149 U/L 125-243 Jan 10, 2025 09:[address] [facility] COMPREHENSIVE METABOLIC PANEL PLASMA Specimen Type: PLASMA Comment: No hemolysis noted. Ordering Provider: KHOI GRIFFIN Report Released Date/Time: Jan 11, 2024 01:34 PM Reporting Lab: [address] [address] Performing Lab: [address] [address] CREATININE 1.02 mg/dL 0.7-1.3 UREA NITROGEN 17.9 [...] 74.8 >60 Jan 10, 2025 09:22 AM [facility] CBC BLOOD Specimen Type: BLOOD No comment entered. Ordering Provider: KHOI GRIFFIN Report Released Date/Time: Jan 11, 2024 01:34 PM Reporting Lab: [address] [address] Performing Lab: [address] [address] WBC 6.4 10*3/uL 3.6-11.2 RBC 4.39 10*6/uL [...] and tobacco- related health factors from the [place] facility where the Encounter took place. Current Smoking Status This section includes the most current smoking, or tobacco-related health factor, from the [place] facility where the Encounter took place. Date/Time Current Smoking Status Comment Janet cortez Aug 09, 2024 09:30 AM VA-TOBACCO USE FOR BANNER [facility] Tobacco Use History This section includes a history of the smoking, or tobacco-related health factors, that were collected on or before the date of the Encounter. The data comes from the [place] facility where the Encounter took place. Date/Time Smoking Status/Tobacco Use Comment F catarino Aug 09, 2024 09:30 AM VA-TOBACCO USE FOR SARAI [facility] Advance Directives: All historical and [...] 12, [address] [facility] December 24, 2011 ADVANCE DIRECTIVE DISCUSSION TOMMY VAZQUEZ [facility] Encounter Notes: All associated encounter notes This section contains the clinical notes associated to the Encounter. Date/Time Encounter Note(s) Provider Source Jan 02, 2025 10:32 AM PHYSICAL MEDICINE REHAB NOTE: LOCAL TITLE: PT DAILY ST[facility] STANDARD TITLE: PHYSICAL MEDICINE REHAB NOTE DATE OF NOTE: JAN 02, 2025@10:32 ENTRY DATE: JAN 02, 2025@10:33:04 AUTHOR: TERRELL COLES COSIGNER: URGENCY: STATUS: COMPLETED PHYSICAL THERAPY DAILY NOTE Provisional dx: Z47.1 Start of Care: 12/19/24 Reevaluation due: POC through: Visits to date: 2 No shows/cancellations: 1 Treatment time: 7933-5400 Total: 30 mins. Therapeutic exercise: 25 mins. 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 Subjective: Overall does not report concern for R knee other than soreness in the R quad muscle --Pain Rating (0-10): Current: 3/10 Best: 0/10 Worst: 4/10 Location: R knee --Patient goal(s): Pt reports wants to get back to walking with cane again Objective: Assistive Device: rollator walker Gait: decreased stance time RLE, L knee hyperextension 2/2 hemiparesis Posture: L knee genus varus, L foot drop 2/2 chronic hemiparesis Squat: NT Patellar Mobility: Right WFL all plants Left WFL all planes Knee AROM Right: 0-117 Left: 0-95 with muscle spasms Strength: Right Left Iliopsoas 4/5 3-/5 Quads 4+/5 4+/5 Hamstrings 4+/5 4+/5 Glut max Glut med Ankle dorsiflexion 5/5 2+/5 Muscle length: Right Left Quads Hamstrings mod tightness mod tightness ITB Treatment provided: -Reviewed current HEP -stationary bike x10 min AAROM, seat level 6, no added resistance -Prone R knee quad stretch with stretch out strap (issued from PT stock)2x20 sec hold -Sit<>Stand from therapy mat with slow controlled descent, UE support on mat as needed for balance x10 reps -Seated R knee ext/flex resisted with red theraband looped around BLE x10 reps each Manual therapy: -Manual stretch/mobilization R knee flex/ext performed by PT for improved R knee AROM, manual hamstring stretch performed by PT RLE Current HEP 1. Seated hamstring stretch RLE, 2x20 sec [...] feet are in line with one another Assessment: Patient presents to Pt s/p R TKA with impairments in strength, ROM, and pain and gait abnormalities. Pt demos improved R knee ROM and tolerated added exercises and stretches to HEP this session. Continues per POC. Offered 2x/week, however due to drive time and distance away from clinic, patient opted for 1x/week for PT follow-ups Physical Therapy Diagnosis: Force production deficit Goals: Short term: (4 weeks) 1) Pt will demonstrate independence with current HEP x 1 - GOAL MET 2) Pt will verbalize pain at worst - D/C 3) Pt will demo R knee AROM = 0-120 deg - PROGRESSING buttermaker helper: (12 weeks) 1) Pt will demonstrate independence with final HEP x 1 2) Pt will verbalize pain at worst - D/C 3) Pt will demo R knee strength = 5/5 Equipment Pt Currently Has: TBD Plan: 1-2x/week for manual therapy, patient education, therapeutic exercise and activity, gait training, neuro reeducation and modalities PRN. I f this is the last PT visit then this documentation serves as the discharge note as well. /brianda/ TERRELL COLES PHYSICAL THERAPIST Signed: 01/02/2025 12:03 TERRELL COLES [facility]
--- OUTSIDE RECORDS SUMMARY | 2025-01-09 05:30 | XMS_ITS | Encounter Summary ---
Author Name [facility] [place] Address [address] [place] [address] Care Team Providers Care Plain Clothes Police Officer Name Role Phone KOLE GARY Primary [...] Name Patient's Relationship to Policy Wiseman AUNG [facility] (WNR) MEDICARE [facility] (WNR) Aug 03, 2017 [facility] ([facility]) [id number] [phone] FR RAE SEPULVEDA PATIENT [employer] [facility] (WNR) MEDICARE ADVANTAGE [facility] (WNR) December 01, 2022 [id number] [phone] FR RAE SEPULVEDA PATIENT [employer] [facility] (WNR) MEDICARE ADVANTAGE [facility] (WNR) December 01, 2022 [id number] [phone] [id number] FR COCO ANK PATIENT [employer] [facility] (WNR) MEDICARE ADVANTAGE [facility] ( WNR) December 01, 2022 [id number] [phone] FR RAE SEPULVEDA PATIENT [employer] [facility] (WNR) MEDICARE ADVANTAGE [facility] (WNR) Aug 03, 2021 [id number] [phone] FR RAE SEPULVEDA PATIENT [facility]UMAN[facility] (WNR) MEDICARE ADVANTAGE [facility] (WNR) Aug 03, 2017 [id number] [phone] FR RAE SEPULVEDA PATIENT [facility]ANPanch[facility] (WNR) MEDICARE ADVANTAGE [facility] (WNR) Aug 03, 2017 [id number] [phone] FR RAE SEPULVEDA PATIENT Selected Encounter This section includes the information on record at [place] for the Encounter. Date/Time Encounter Type Encounter Description Reason Provider Source Jan 09, 2025 10:30 AM OFFICE O/P EST MOD 30 MIN PSYCHOGERIATRIC - INDIVIDUAL ICD-10-CM F32.A Depression, unspecified SYALVARADO,RANDALL RESITA M IHE Encounter Template Text not used by [place] Assessments - Encounter Diagnoses This section includes the primary and secondary diagnoses documented for the Encounter. Date/Time Primary/Secondary Diagnosis Diagnosis Name Provider Source Jan 09, 2025 10:45 AM PRIMARY Depression, unspecified LEIGH RENUKALISA [facility] Jan 09, 2025 10:45 AM SECONDARY Essential (primary) hypertension [facility] Jan 09, 2025 10:45 AM SECONDARY Hyperlipidemia, unspecified SYALVARADO,ESTUARDO [facility] Jan 09, 2025 10:45 AM SECONDARY Post-traumatic stress disorder, chronic SYALVARDWYER [facility] Jan 09, 2025 10:45 AM SECONDARY Sensorineural hearing loss, bilateral SYALVARDWYER RENUKALISA [facility] Jan 09, 2025 10:45 AM SECONDARY Sleep apnea, unspecified SYALVARADOESTUARDO [facility] Jan 09, 2025 10:45 AM SECONDARY Unspecified B-cell lymphoma, unspecified site SYALVARDWYER [facility] Plan of Treatment: Future Appointments (+ 6 months) and Future Tests (+/- 45 days) The Plan of Treatment section includes future care activities for the patient from all [place] treatmentfacilities. This section includes future appointments and future orders which are active, pending or scheduled. Future Appointments This section includes appointments that were scheduled to occur 6 months from the date of the Encounter, up to a maximum of 20 appointments. The data comes from all [place] treatment [facility]. Appointment Date/Time Appointment Type Appointme nt Facility Name Jan 10, 2025 09:00 AM AMBULATORY - MEDICINE [facility] Jan 11, 2025 02:00 PM AMBULATORY - REHAB MEDICIN E [facility] Jan 16, 2025 09:30 AM AMBULATORY - MEDICINE [facility] Jan 18, 2025 09:30 AM AMBULATORY - REHAB MEDICIN E [facility] Jan 18, 2025 10:30 AM AMBULATORY - SURGERY [facility] Jan 23, 2025 09:30 AM AMBULATORY - MEDICINE [facility] Jan 25, 2025 10:30 AM AMBULATORY - REHAB MEDICIN E [facility] Jan 30, 2025 09:00 AM AMBULATORY - REHAB MEDICIN E [facility] Jan 30, 2025 09:30 AM AMBULATORY - MEDICINE [facility] Jan 30, 2025 10:00 AM AMBULATORY - SURGERY [facility] Feb 06, 2025 09:00 AM AMBULATORY - REHAB MEDICIN E [facility] Feb 06, 2025 09:30 AM AMBULATORY - MEDICINE [facility] Feb 13, 2025 10:30 AM AMBULATORY - MEDICINE [facility] Feb 15, 2025 09:00 AM AMBULATORY - REHAB MEDICIN E [facility] Feb 20, 2025 09:00 AM AMBULATORY - REHAB MEDICIN E [facility] Feb 23, 2025 10:00 AM AMBULATORY - SURGERY [facility] Feb 27, 2025 09:30 AM AMBULATORY - MEDICINE [facility] Mar 30, 2025 01:15 PM AMBULATORY - MEDICINE [facility] Apr 12, 2025 12:00 PM AMBULATORY - NONE [facility] May 01, 2025 09:30 AM AMBULATORY - SURGERY [facility] Lab Results: +/- 30 days of the encounter This section includes the Chemistry and Hematology Lab Results on record with MS for the patient. Radiology Reports and Pathology Reports are provided separately, in subsequent sections. Lab Results This section contains the Chemistry/Hematology Results that were resulted 30 days before or 30 daysafter the date of the Encounter. Date/Time Source Result Type Result - Unit Interpretation Reference Range Specimen Type Comment Jan 10, 2025 09:22 AM [facility] LDH PLASMA Specimen Type: PLASMA Comment: No hemolysis noted. Ordering Provider: KHOI GRIFFIN Report Released Date/Time: Jan 11, 2024 01:34 PM Reporting Lab: [address] [address] Performing Lab: [address] [address] LDH 149 U/L 125-243 Jan 10, 2025 09:22 AM [facility] COMPREHENSIVE METABOLIC PANEL PLASMA Specimen Type: PLASMA Comment: No hemolysis noted. Ordering Provider: KHOI GRIFFIN Report Released Date/Time: Jan 11, 2024 01:34 PM Reporting Lab: [address] [address] Performing Lab: [address] [address] CREATININE 1.02 mg/dL 0.7-1.3 UREA NITROGEN 17.9 [...] 74.8 >60 Jan 10, 2025 09:22 AM [facility] CBC BLOOD Specimen Type: BLOOD No comment entered. Ordering Provider: KHOI GRIFFIN Report Released Date/Time: Jan 11, 2024 01:34 PM Reporting Lab: [facility] [address] [address] Performing Lab: [facility] [address] [facility] [address] WBC 6.4 10*3/uL 3.6-11.2 RBC 4.39 10*6/uL [...] and tobacco- related health factors from the [place] facility where the Encounter took place. Current Smoking Status This section includes the most current smoking, or tobacco-related health factor, from the [place] facility where the Encounter took place. Date/Time Current Smoking Status Comment Janet cortez Aug 09, 2024 09:30 AM VA-TOBACCO USE FOR SARAI CIGARETTES [facility] Tobacco Use History This section includes a history of the smoking, or tobacco-related health factors, that were collected on or before the date of the Encounter. The data comes from the [place] facility where the Encounter took place. Date/Time Smoking Status/Tobacco Use Comment Patrcik toribio Aug 09, 2024 09:30 AM VA-TOBACCO USE FOR SARAI CIGARETTES . [facility] Advance Directives: All historical and current Section Date Range: From patient's date of to the date document was created. This section includes ALL of a patient's completed or amended [place] Advance and Rescinded Directives. The entries below indicate that a directive exists for the patient, but an actual copy is not included with this document. The data comes from all [place] facilities. Date Advance Directives Provider Source Jun 12, 2016 ADVANCE DIRECTIVE [facility] December 24, 2011 ADVANCE DIRECTIVE DISCUSSION TOMMY VAZQUEZ [facility] Encounter Notes: All associated encounter notes This section contains the clinical notes associated to the Encounter. Date/Time Encounter Note(s) Provider Source Jan 09, 2025 10:47 AM MENTAL HEALTH NOTE: LOCAL TITLE: MH FLOW DISCHARGE STANDARD TITLE: MENTAL HEALTH NOTE DATE OF NOTE: JAN 09, 2025@10:47 ENTRY DATE: JAN 09, 2025@10:47:46 AUTHOR: NESTOR CARPENTER COSIGNER: URGENCY: STATUS: COMPLETED Mental Health FLOW Discharge Note The [facility] is no longer receiving specialty mental health services at this time. PERTINENT DIAGNOSIS(ES): ohter specified depressive disorder, ptsd Please refer to the progress note date Jan for additional details. Summary of the episode of care is at the end of this note. NEXT PRIMARY CARE PROVIDER (PCP) APPOINTMENT PCP name & PACT Team: Team Information Primary Care Team: [facility] PACT 07 *WH* PC Provider: JOSE RODRIGUEZ Position: PHYSICIAN Non-PC Team: [facility] Non-PC Provider: ANGELA ROSS Position: ([facility]) REGISTERED Next PCP appointment: Jan REASON FOR DISCHARGE [facility] has adhered to and benefited from pharmacotherapy, which is now transferred to Primary Care (PC). The has: - enough medication refills for 5 or more months - been told to contact the PCP at least one month before needing additional refills - been given a copy of current medications today Progress toward goals as evidenced by improvements in: Self-report mental health measures Interpersonal functioning Health behavior Current mental health medications to be refilled by PCP: duloxetene 30 mg oral daily, trazodone 25 mg oral bedtime, bupropion sa 300 mg oral [daily was made aware of the above: Via telehealth SUMMARY of EPISODE of CARE: 79 year old,male follow up [facility] fro other specified depressive disorder, ptsd, patientmood has been stable , reort of occasional flashback/nightmare, able to handle it,no report of suicidal/homicidal idea,threat or plan,no report of lynette/psychosis, sleeping fairly with cpap[sleep apnea. patient agreeable follow up with pcp and understand he can be refer back to [facility] when needed The undersigned has added the 's PCP and other VA staff as additional signer. Provider contacted [facility] Mental Health Defensive Line Coach (MHTC) and ensured communication and coordination regarding MHTC unassignment. Comment: cosign mhtc /brianda/ NESTOR CARPENTER MD Staff Physician, Psychiatry Signed: 01/09/2025 10:53 Receipt Acknowledged By: 01/09/2025 11:12 /es/ Fanny Shaw DNP, WOOD INSPECTOR, ROUNDER HAND-C Primary Care Nurse Practitioner for JOSE RODRIGUEZ 01/09/2025 12:02 /es/ Contreras Barrett Rn, BSN REGISTERED NURSE 01/09/2025 11:19 /es/ ANGELA ROSS Registered Nurse [facility] 01/11/2025 13:02 /es/ Tatiana Lazaro, Pharm.D., BCPP Clinical Pharmacist Practitioner GENEVA CARPENTER [facility] Jan 09, 2025 10:30 AM PSYCHIATRY OUTPATIENT NOTE: LOCAL TITLE: MENTAL HEALTH AGING RESOURCES TEAM [facility] STANDARD TITLE: PSYCHIATRY OUTPATIENT NOTE DATE OF NOTE: JAN 09, 2025@10:30 ENTRY DATE: JAN 09, 2025@10:30:41 AUTHOR: NESTOR CARPENTER EXP COSIGNER: URGENCY: STATUS: COMPLETED Visit conducted by synchronous telehealth. Location/emergency number confirmed. Environment surveyed and all participants identified. Virtual conference room locked. The Virtual Medical Room was locked for this encounter. A survey of the environment was conducted and it is appropriate to conduct a [facility] appointment. Confirmed [facility]'s Non-VA location for this appointment: 's Home [address] [place] [address] [address], [place] [address] Phone: Address and phone number verified with [facility]. Address: Phone: Emergency Contact: Name: Phone: cprs Others were present at this appointment(caregiver, family member, etc.) Details: * was notified of right to decline Telehealth services and eligibility for other options. consented to be seen via [facility]. EMERGENCY PLAN In the event of an emergency, the or family will call emergency services, if capable. The Teleprovider will remain in the virtual medical room until emergency response arrives and handoff to emergency services is complete. If is unable to make emergency call, the Teleprovider is to call the [employer] service at [phone] and ask to be connected to emergency services for the 's location. [facility] Crisis Line: Dial [phone] then press 1, or text [phone] Office of Connected Care Helpdesk (OCC): [phone] or [phone] Verified Provider's location and contact information for this appointment: [address] [address] [phone] DIAGNOSIS: DSM V other specified depressive disorder chronic ptsd sleep apnea CHIEF COMPLAINTS:right knee surgery at on HISTORY OF PRESENT ILLNESS:79 year old,,male for consult on 10-14-22 [ vvc] , patient able to connect with [facility],folllow up today,patient wearing eye glasses,pleasant and cooperative in providing information.report of right knee surgery at on , on PT 1x week at present[teresa]. drive for him at present.patient stated he is doing fine, they move to a new house on .stated he like the place, .stated his mood is fine with present medicine: bupropion sa[ 24 hr] 300 mg oral am,duloxetene 30 mg oral am, trazodone 25 mg oral bedtime, no report of side,effect,report of sleeping fairly,using cpap ,got new mask , stated working better.no report of lynette/psychosis, no report of drinking alcohol/drug use, no report of fall.ambulate with a quad cane. report of flashback/nightmare occasionaly .able to handle it.stated his help him cope/handle. PSYCHIATRIC HISTORY:history of flashback/nightmare, depression/anxiety had treatment at [facility][ psychiatrist/psychologist].re port of attended ptsd group and [...] left leg/arm weakness, left foot drop,hospitalized at [facility] last week for pneumonia, s/p excision skin cancer left lower lip on ,s/p right total knee arthroplasty primary care note on 01-05-24 hematology oncology note on 01-11-24 dermatology note on 01-20-23 orthopedic note on 12-14-24 HISTORY OF HEAD TRAUMA:denies/no report PAIN:left leg PAST PSYCIATRIC HISTORY:history of flashback/nightmare, depression/[facility]xiety [facility]/psychologist[facility]re port of attended ptsd group and [...] ] 1 sister[ education: 9th grade,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 legal: denies/no [...] THE FAMILY:daughter has drug problme[ was in nursing home drug related], no report of history of mental illness/alcohol abuse/suicide attempt in the family LIVING SITUATION:living with second , move from [place] to [place] on 06-03-[address] occasionaly [ s/pcva], drive most of the time and prepare his medicine, bath and dressedself,continent of urine/bowel, ambulate with quad cane, he do some woodwork [has little project].exercise with stationary bike Patient is a 77 year old MALE for follow-up appointment with history of the following problems: 1) HTN - Hypertension ([facility] [id number]) 2) Hyperlipidemia ([facility] [id number]) 3) Sleep apnoea 4) H/O: Stroke ([facility] [id number]) 5) B-cell lymphoma 6) Anxiety ([facility] [id number]) 7) Depression ([facility] [id number]) 8) Chronic kidney disease 9) Pes planus [...] disorder,ptsd:consult on 10-14-22,patient able to connect with [facility] .wearing eye glasses, folow up today for evaluation of mental status/medicine. patient is pleasant and cooperative in providing information . report of patient he had right knee surgeryt at on , on PT at present [].stated his mood has been fine with current medicine and no side effect, sleeping fairly. report of flashback/nightmare ocasionaly.able to able to handle/cope with help. speech normal [...] mostly at home.stated his prepare his medicine .discuss his follow up appointment, agreeable follow up wiht pcp and he can be refer back to -[facility] when needed. 2] sleep apnea: report of sleeping failry [...] at night for sleep apnea sleep hygiene renal social worker for other social issues,poa fall precaution[p patient awar] S OUTPATIENT TREATMENT PLAN:done on 10-30-23 TIME SPENT WITH PATIENT [vvc] 40 min[ 25 min supportive/educational therapy] SCHEDULED FOLLOW-UP VISIT: pcp[ patient agreeable and understand he can be refer back to -art when needed] Medication Reconciliation Opt STL: I have reviewed the patient's medication including active outpatient prescriptions dispensed from this [facility] (local) and dispensed from another [facility] with the patient. corrections, additions and/or deletions were madee as appropriate. Corrected Outpatient Medication was provided to the patient. /brianda/ NESTOR CARPENTER MD Staff Physician, Psychiatry Signed: 01/09/2025 10:46 GENEVA CARPENTER [facility]
--- OUTSIDE RECORDS SUMMARY | 2025-01-10 04:00 | XMS_ITS | Encounter Summary ---
Author Name [facility] [place] Address [address] [place] [address] Care Team Providers Care Rubber Goods Finisher Name Role Phone KOLE GARY Primary Care [...] Name Patient's Relationship to Policy Wiseman [facility] (WNR) MEDICARE [facility] (WNR) Aug 03, 2017 [facility] ([facility]) [id number] [phone] [id number] FR RAE SEPULVEDA PATIENT HUMANA [facility] (WNR) MEDICARE ADVANTAGE [facility] (WNR) December 01, 2022 [id number] [phone] [id number] FR RAE SEPULVEDA PATIENT [employer] [facility] (WNR) MEDICARE ADVANTAGE [facility] (WNR) December 01, 2022 [id number] [phone] [id number] FR COCO ANK PATIENT [employer] [facility] (WNR) MEDICARE ADVANTAGE [facility] ( WNR) December 01, 2022 [id number] [phone] [id number] FR RAE SEPULVEDA PATIENT HUMANA [facility] (WNR) MEDICARE ADVANTAGE [facility] (WNR) Aug 03, 2021 [id number] [phone] [id number] FR RAE SEPULVEDA PATIENT [employer] [facility] (WNR) MEDICARE ADVANTAGE [facility] (WNR) Aug 03, 2017 [id number] FR RAE SEPULVEDA PATIENT [employer] [facility] (WNR) MEDICARE ADVANTAGE MCR (WNR) Aug 03, 2017 [id number] [phone] FR RAE SEPULVEDA PATIENT Selected Encounter This section includes the information on [place] at [place] for the Encounter. Date/Time Encounter Type Encounter Description Reason Provider Source Jan 10, 2025 09:00 AM OFFICE O/P EST MOD 30 MIN ONCOLOGY/TUMOR ICD-10-CM C85.10 Unspecified B-cell lymphoma, unspecified site ELVIN DICKERSON [facility] Encounter Template Text not used by [place] Assessments - Encounter Diagnoses This section includes the primary and secondary diagnoses documented for the Encounter. Date/Time Primary/Secondary Diagnosis Diagnosis Name Provider Source Jan 10, 2025 01:35 PM PRIMARY Unspecified B-cell lymphoma, unspecified site ELVIN DICKERSON [facility] Plan of Treatment: Future Appointments (+ 6 months) and Future Tests (+/- 45 days) The Plan of Treatment section includes future care activities for the patient from all [place] [facility]. This section includes future appointments and future orders which are active, pending or scheduled. Future Appointments This section includes appointments that were scheduled to occur 6 months from the date of the Encounter, up to a maximum of 20 appointments. The data comes from all [place] treatment facilities. Appointment Date/Time Appointment Type Appointme nt Facility Name Jan 11, 2025 02:00 PM AMBULATORY - REHAB MEDICIN E [facility] Jan 16, 2025 09:30 AM AMBULATORY - MEDICINE [facility] Jan 18, 2025 09:30 AM AMBULATORY - REHAB MEDICIN E [facility] Jan 18, 2025 10:30 AM AMBULATORY - SURGERY [facility] Jan 23, 2025 09:30 AM AMBULATORY - MEDICINE [facility] Jan 25, 2025 10:30 AM AMBULATORY - RE[facility]AB [facility] Jan 30, 2025 09:00 AM [facility] Jan 30, 2025 09:30 AM AMBULATORY - MEDICINE [facility] Jan 30, 2025 10:00 AM [facility] Feb 06, 2025 09:00 AM AMBULATORY - REHAB MEDICIN [facility] Feb 06, 2025 09:30 AM AMBULATORY - MEDICINE [facility] Feb 13, 2025 10:30 AM AMBULATORY - MEDICINE [facility] Feb 15, 2025 09:00 AM AMBULATORY - REHAB MEDICIN [facility] Feb 20, 2025 09:00 AM AMBULATORY - REHAB MEDICIN [facility] Feb 23, 2025 10:00 AM AMBULATORY - SURGERY [facility] Feb 27, 2025 09:30 AM AMBULATORY - MEDICINE [facility] Mar 30, 2025 01:15 PM AMBULATORY - MEDICINE [facility] Apr 12, 2025 12:00 PM AMBULATORY - NONE [facility] May 01, 2025 09:30 AM AMBULATORY - SURGERY [facility] May 16, 2025 10:00 AM AMBULATORY - SURGERY [facility] Lab Results: +/- 30 days of the encounter This section includes the Chemistry and Hematology Lab Results on record with [place] for the patient. Radiology Reports and Pathology [...] Jan 11, 2024 01:34 PM Reporting Lab: [facility] [address] [address] Performing Lab: [facility] [address] [address] [facility] [address] CREATININE 1.02 mg/dL 0.7-1.3 UREA NITROGEN 17.9 [...] 74.8 >60 Jan 10, 2025 09:22 AM [facility] LDH PLASMA Specimen Type: PLASM A Comment: No hemolysis noted. Ordering Provider: KHOI GRIFFIN Report Released Date/Time: Jan 11, 2024 01:34 PM Reporting Lab: [address] [address] Performing Lab: [address] [address] LDH 149 U/L 125-243 Jan 10, 2025 09:22 AM [facility] CBC BLOOD Specimen Type: BLOOD No comment entered. Ordering Provider: KHOI GRIFFIN Report Released Date/Time: Jan 11, 2024 01:34 PM Reporting Lab: [address] [address] Performing Lab: [address] [address] WBC 6.4 10*3/uL 3.6-11.2 RBC 4.39 10*6/uL [...] 0.60 BASOPHILS, ABSOLUTE 0.05 10*3/uL 0.00-0. 20 Vital Signs: All taken on the encounter date This section contains inpatient and outpatient Vital Signs collected on the date of the Encounter. Date/Time Temperature Pulse Blood Pressure Respiratory Rate SP02 Pain Height Weight Body Mass Index Source Jan 10, 2025 09:33 AM 97.6 70 146/71 19 18 99 208.6 31 [facility] Advance Directives: All historical and current Section Date Range: From patient's date of to the date document was created. This section includes ALL of a patient's completed or amended [place] Advance and Rescinded Directives. The entries below indicate that a directive exists for the patient, but an actual copy is not included with this document. The data comes from all [place] facilities. Date Advance Directives Provider Source Jun 12, 2016 [address]IVE [address] [facility] December 24, 2011 ADVANCE DIRECTIVE DISCUSSION TOMMY VAZQUEZ [facility] Encounter Notes: All associated encounter notes This section contains the clinical notes associated to the Encounter. Date/Time Encounter Note(s) Provider Source Jan 10, 2025 10:09 AM HEMATOLOGY AND ONC OLOGY OUTPATIENT NOTE: LOCAL TITLE: HEMATOLOGY ONCOLOGY OUTPATIENT FOLLOW UP ST STANDARD TITLE: HEMATOLOGY AND ONCOLOGY OUTPATIENT NOTE DATE OF NOTE: JAN 10, 2025@10:09 ENTRY DATE: JAN 10, 2025@10:10:05 AUTHOR: GERMAN HANNON COSIGNER: ELVIN DICKERSON URGENCY: STATUS: COMPLETED Chief Complaint: Follicular lymphoma Treatment History: Per [facility] oncology notes: Pt noted a new lump over his right pre auricular area 09/2016, then another one over his left pre-auricular area. He went on to develop even more LAD. He underwent an excitional biospsy of a left cervical LN revealing the diagnosis of Grade 1 Follicular lymphoma. He was started on treatment with BR on 12/22/16 and has completed 6 cycles. He has been on observation since completing BR. Interval History: presents tot he appointment with He denies any new complaints. uses his walker for mobility.He is seeing derm for skin cancers. he had knee replacement surgery about 6 weeks ago. noted mild anemia there that ? related to surgery that is resolving. No B symptoms, recurrent infections, LAD ROS: A complete 10 point ROS was performed as per interval history. All other systems were reviewed and negative other than those as mentioned. Home Meds: Active Outpatient Medications (including Supplies): Active Outpatient Medications Status = 1) AMOXICILLIN 500MG CAP TAKE FOUR CAPSULES BY MOUTH ONE-TIME ACTIVE ONE HOUR PRIOR TO PROCEDURE. FIVE DOSES IN BOTTLE Indication: PREDENTAL/PROCEDURE 2) BUPROPION HCL 300MG 24HR SA TAB TAKE ONE TABLET BY MOUTH ACTIVE ONCE A DAY SWALLOW WHOLE - DO NOT CRUSH OR CHEW. Indication: FOR DEPRESSION 3) CALCIUM 500MG (CA CARB-1.25GM) TAB TAKE TWO TABLETS BY MOUTH ACTIVE TWICE A DAY Indication: FOR CALCIUM SUPPLEMENTATION 4) CYCLOBENZAPRINE HCL 10MG TAB TAKE ONE TABLET BY MOUTH THREE ACTIVE TIMES A DAY NEEDED MAY CAUSE DROWSINESS. DO NOT DRINK ALCOHOL WHILE TAKING THIS MEDICATION. Indication: FOR MUSCLE SPASM 5) DULOXETINE HCL 30MG EC CAP TAKE THREE CAPSULES BY MOUTH ONCE ACTIVE (S) A DAY DO NOT ABRUPTLY DISCONTINUE MEDICATION. Indication: FOR DEPRESSION 6) ERGOCALCIF 1,250MCG (D2-50,000UNIT) CAP TAKE ONE CAPSULE BY ACTIVE MOUTH EVERY WEEK Indication: FOR VITAMIN D DEFICIENCY 7) FINASTERIDE 5MG TAB TAKE ONE TABLET BY MOUTH ONCE A DAY ACTIVE SWALLOW WHOLE, DO NOT CRUSH, SPLIT, OR CHEW. Indication: FOR BENIGN PROSTATIC HYPERPLASIA 8) HYDROCHLOROTHIAZIDE 25MG TAB TAKE ONE TABLET BY MOUTH ONCE A ACTIVE DAY Indication: FOR HIGH BLOOD PRESSURE 9) LISINOPRIL 20MG TAB TAKE ONE TABLET BY MOUTH ONCE A DAY ACTIVE Indication: FOR HIGH BLOOD PRESSURE 10) MELOXICAM 7.5MG TAB TAKE ONE TABLET BY MOUTH ONCE A DAY ACTIVE Indication: FOR OSTEOARTHRITIS 11) SODIUM FLUORIDE 1.1% TOOTHPASTE USE DIRECTED BY MOUTH ACTIVE TWICE A DAY TOOTHPASTE (DO NOT SWALLOW) APPLY A PEA-SIZED AMOUNT OF THE PASTE TO A TOOTHBRUSH AND BRUSH THOROUGHLY FOR TWO MINUTES, AT MORNING AND AT NIGHT; SPIT, DO NOT RINSE. DO NOT EAT, DRINK, OR RINSE FOR 30 MINUTES AFTER USE. Indication: FOR DENTAL CARIES 12) SUNSCREEN 30-50/PHY BLOCK/PABA-F LOTION APPLY LIBERALLY TO ACTIVE AFFECTED AREA(S) DIRECTED (EXTERNAL USE ONLY) Indication: FOR SKIN PROTECTION 13) TAMSULOSIN HCL 0.4MG CAP TAKE ONE CAPSULE BY MOUTH EVERY ACTIVE EVENING APPROXIMATELY 30 MINUTES AFTER THE SAME MEAL EACH DAY Indication: FOR BENIGN PROSTATIC HYPERPLASIA 14) TRAZODONE HCL 50MG TAB TAKE ONE-HALF TABLET BY MOUTH AT ACTIVE BEDTIME Indication: FOR SLEEP Physical Exam: Temperature: 97.6 F [36.4 C] (01/10/2025 09:33) Blood Pressure: 146/71 (01/10/2025 09:33) Pulse: 70 (01/10/2025 09:33) Respirations: 19 (01/10/2025 09:33) Pulse Oximetry: 18% (01/10/2025 09:33) weight: Measurement DT WEIGHT LB(KG)[BMI] 01/10/2025 09:33 208.6(94.62)[31*] 12/19/2024 10:57 207(93.89)[31*] 12/14/2024 10:10 210.9(95.66)[31*] Height: BSABSA: 2.1 ECOG Performance Status: 2 Gen: NAD HEENT: NC/AT, PERRL Resp: CTAB CV: S1, S2, no m/r/g Abd: soft, NT/ND, BS+ Ext: no c/c/e Neuro: Awake and alert, no focal deficits Lymph: no peripheral palpable adenopathy Skin: No rashes Labs: Labs: CBC: WBC 6.4 10*3/uL 01/10/2025 09:22 RBC 4.39 10*6/uL 01/10/2025 09:22 HGB 12.9 L g/dL 01/10/2025 09:22 HCT 38.5 % 01/10/2025 09:22 MCV 87.7 fL 01/10/2025 09:22 MCH 29.4 pg 01/10/2025 09:22 MCHC 33.5 g/dL 01/10/2025 09:22 RDW 12.9 % 01/10/2025 09:22 PLT 278 10*3/uL 01/10/2025 09:22 MPV 8.5 fL 01/10/2025 09:22 NEUTROPHILS, AUTO % 58 % 01/10/2025 09:22 LYMPHOCYTES, AUTO % 30 % 01/10/2025 09:22 MONOCYTES, AUTO % 9 % 01/10/2025 09:22 EOSINOPHILS, AUTO % 3 % 01/10/2025 09:22 BASOPHILS, AUTO % 1 % 01/10/2025 09:22 NEUTROPHILS, ABSOLUTE 3.71 10*3/uL 01/10/2025 09:22 LYMPHOCYTES, ABSOLUTE 1.90 10*3/uL 01/10/2025 09:22 MONOCYTES, ABSOLUTE 0.55 10*3/uL 01/10/2025 09:22 EOSINOPHILS, ABSOLUTE 0.18 10*3/uL 01/10/2025 09:22 BASOPHILS, ABSOLUTE 0.05 10*3/uL 01/10/2025 09:22 Comprehensive Metabolic Panel Results: SODIUM 133 L mEq/L 11/19/2024 14:00 POTASSIUM 4.4 mEq/L 11/19/2024 14:00 CHLORIDE 100 mEq/L 11/19/2024 14:00 UREA NITROGEN 21.3 mg/dL 11/19/2024 14:00 CREATININE 1.16 mg/dL 11/19/2024 14:00 CALCIUM 9.4 mg/dL 11/19/2024 14:00 PROTEIN 6.7 g/dL 10/27/2024 10:30 ALBUMIN 4.0 g/dL 10/27/2024 10:30 ALKALINE PHOSPHATASE 82 U/L 10/27/2024 10:30 ALT/SGPT 30 U/L 10/27/2024 10:30 AST/SGOT 30 U/L 10/27/2024 10:30 TOTAL BILIRUBIN 0.6 mg/dL 10/27/2024 10:30 CARBON DIOXIDE 21 L mEq/L 11/19/2024 14:00 GLUCOSE 101 H mg/dL 11/19/2024 14:00 EGFR (CKD-EPI 2020) 64.5 11/19/2024 14:00 LDH 266 H U/L 01/05/2024 11:40 Impression and Plan: 1. Follicular lymphoma, grade 1 -FLIPI 3 at diagnosis -s/p 6 cycles of treatment with BR (EOT 05/2017) - He has been on surveillance since completing BR. Plan: - No concern for relapse. -Noted mild anemia 10.9 in November that is resolving today almost normalized 12.9. ? related to his knee surgey - Continue to follow annually. Patient is aware to call use in interim if there are any concern for relapse 2. R auricualr melanoma s/p resection. reports he did not require adjuvant tx. 3. Non melanoma skin cancer Follows with dermatology. s/p recent Mohs sx Dispo: RTC in 1 year Plan above was discussed with attending Dr. Dickerson. Addendum to follow. German Hannon MD Hematology-Oncology Fellow [facility] /brianda/ GERMAN HANNON MD Signed: 01/10/2025 10:29 /brianda/ Elvin Dickerson MD Staff Physician Cosigned: 01/10/2025 13:36 GERMAN HANNON [facility]
--- OUTSIDE RECORDS SUMMARY | 2025-01-11 09:00 | XMS_ITS | Encounter Summary ---
Author Name [place] Address [address] [place] [address] Care Team Providers Care Cv/Cvn Cv Tsc System Operator Name Role Phone KOLE GARY Primary [...] Patient's Relationship to Policy Wiseman AUNG FREITAS [facility] (WNR) MEDICARE ADVANTAGE [facility] (WNR) Aug 03, 2017 [facility] (WN) [id number] [phone] FR RAE SEPULVEDA PATIENT [employer] [facility] (WNR) MEDICARE ADVANTAGE [facility] (WNR) December 01, 2022 [id number] [phone] [id number] FR RAE SEPULVEDA PATIENT [employer] [facility] (WNR) MEDICARE ADVANTAGE [facility] (WNR) December 01, 2022 [id number] [phone] [id number] FR COCO ANK PATIENT [employer] [facility] (WNR) MEDICARE ADVANTAGE [facility] ( WNR) December 01, 2022 [id number] [phone] [id number] FR RAE SEPULVEDA PATIENT [employer] [facility] (WNR) MEDICARE ADVANTAGE [facility] (WNR) Aug 03, 2021 [id number] [phone] FR RAE SEPULVEDA PATIENT [employer] [facility] (WNR) MEDICARE ADVANTAGE [facility] (WNR) Aug 03, 2017 [id number] [phone] FR RAE SEPULVEDA PATIENT [employer] [facility] (WNR) MEDICARE ADVANTAGE [facility] (WNR) Aug 03, 2017 [id number] [phone] FR RAE SEPULVEDA PATIENT Selected Encounter This section includes the information on record at [place] for the Encounter. Date/Time Encounter Type Encounter Description Reason Provider Source Jan 11, 2025 02:00 PM MANUAL THERAPY 1/> [facility] ICD-10-CM Z47.1 Aftercare following joint replacement surgery JOSH COLES [facility] Encounter Template Text not used by [place] Assessments - Encounter Diagnoses This section includes the primary and secondary diagnoses documented for the Encounter. Date/Time Primary/Secondary Diagnosis Diagnosis Name Provider Source Jan 11, 2025 04:14 PM PRIMARY Aftercare following joint replacement surgery JOSH COLES [facility] Plan of Treatment: Future Appointments (+ 6 months) and Future Tests (+/- 45 days) The Plan of Treatment section includes future care activities for the patient from all [place] [facility]. This section includes future appointments and future orders which are active, pending or scheduled. Future Appointments This section includes appointments that were scheduled to occur 6 months from the date of the Encounter, up to a maximum of 20 appointments. The data comes from all [place] treatment facilities. Appointment Date/Time Appointment Type Appointme nt Facility Name Jan 16, 2025 09:30 AM AMBULATORY - [facility]ICINE [facility] Jan 18, 2025 09:30 AM AMBULATORY - REHAB MEDICIN [facility] Jan 18, 2025 10:30 AM AMBULATORY - SURGERY [facility] Jan 23, 2025 09:30 AM AMBULATORY - MEDICINE [facility] Jan 25, 2025 10:30 AM AMBULATORY - REHAB MEDICIN [facility] Jan 30, 2025 09:00 AM AMBULATORY - REHAB MEDICIN [facility] Jan 30, 2025 09:30 AM AMBULATORY - MEDICINE [facility] Jan 30, 2025 10:00 AM [facility] Feb 06, 2025 09:00 AM AMBULATORY - REHAB MEDICIN E [facility] Feb 06, 2025 09:30 AM AMBULATORY - MEDICINE [facility] Feb 13, 2025 10:30 AM AMBULATORY - MEDICINE [facility] Feb 15, 2025 09:00 AM AMBULATORY - REHAB MEDICIN E [facility] Feb 20, 2025 09:00 AM [facility] Feb 23, 2025 10:00 AM AMBULATORY - SURGERY [facility] Feb 27, 2025 09:30 AM AMBULATORY - MEDICINE [facility] Mar 30, 2025 01:15 PM AMBUL[facility]ORY [facility]ICINE [facility] Apr 12, 2025 12:00 PM AMBULATORY - NONE [facility] May 01, 2025 09:30 AM AMBULATORY - SURGERY [facility] May 16, 2025 10:00 AM AMBULATORY - SURGERY [facility] May 16, 2025 11:00 AM AMBULATORY - REHAB MEDICIN E [facility] Lab Results: +/- 30 days of the [...] Type Comment Jan 10, 2025 09:22 AM [facility] LDH PLASMA Specimen Type: PLASMA Comment: No hemolysis noted. Ordering Provider: KHOI GRIFFIN Report Released Date/Time: Jan 11, 2024 01:34 PM Reporting Lab: [facility] [address] [facility] [address] [address] Performing Lab: [facility] [address] [facility] [address] LDH 149 U/L 125-243 Jan 10, 2025 09:22 AM [facility] COMPREHENSIVE METABOLIC PANEL PLASMA Specimen Type: PLASMA Comment: No hemolysis noted. Ordering Provider: KHOI GRIFFIN Report Released Date/Time: Jan 11, 2024 01:34 PM Reporting Lab: [address] [address] Performing Lab: [address] [address] CREATININE 1.02 mg/dL 0.7-1.3 UREA NITROGEN 17.9 [...] 74.8 >60 Jan 10, 2025 09:22 AM [facility] CBC BLOOD Specimen Type: BLOOD No comment entered. Ordering Provider: KHOI GRIFFIN Report Released Date/Time: Jan 11, 2024 01:34 PM Reporting Lab: [address] [address] Performing Lab: [address] [address] WBC 6.4 10*3/uL 3.6-11.2 RBC 4.39 10*6/uL [...] and tobacco- related health factors from the [place] facility where the Encounter took place. Current Smoking Status This section includes the most current smoking, or tobacco-related health factor, from the [place] facility where the Encounter took place. Date/Time Current Smoking Status Comment Janet cortez Aug 09, 2024 09:30 AM VA-TOBACCO USE FOR [facility] Tobacco Use History This section includes a history of the smoking, or tobacco-related health factors, that were collected on or before the date of the Encounter. The data comes from the [place] facility where the Encounter took place. Date/Time Smoking Status/Tobacco Use Comment F catarino Aug 09, 2024 09:30 AM VA-TOBACCO USE FOR [facility] Advance Directives: All historical and current Section Date Range: From patient's date of to the date document was created. This section includes ALL of a patient's completed or amended [place] Advance and Rescinded Directives. The entries below indicate that a directive exists for the patient, but an actual copy is not included with this document. The data comes from all [place] facilities. Date Advance Directives Provider Source Jun 12, 2016 [facility] December 24, 2011 ADVANCE DIRECTIVE DISCUSSION TOMMY VAZQUEZ [facility] Encounter Notes: All associated encounter notes This section contains the clinical notes associated to the Encounter. Date/Time Encounter Note(s) Provider Source Jan 11, 2025 02:01 PM PHYSICAL MEDICINE REHAB NOTE: LOCAL TITLE: PT DAILY [facility] STANDARD TITLE: PHYSICAL MEDICINE REHAB NOTE DATE OF NOTE: JAN 11, 2025@14:01 ENTRY DATE: JAN 11, 2025@13:02:15 AUTHOR: TERRELL COLES COSIGNER: URGENCY: STATUS: COMPLETED PHYSICAL THERAPY DAILY NOTE Provisional dx: Z47.1 Start of Care: 12/19/24 Reevaluation due: POC through: Visits to date: 3 No shows/cancellations: 1 Treatment time: [id number] Total: 30 mins. Therapeutic exercise: 20 mins. Manual therapy: 10 min s/p R TKA 11/21/2024 Subjective: reports no changes in R knee pain. Continues to work on stretches with strap issued at last session with help from spouse --Pain Rating (0-10): Current: 3/10 Best: 0/10 Worst: 4/10 Location: R knee --Patient goal(s): Pt reports wants to get back to walking with cane again Objective: Assistive Device: rollator walker Gait: decreased stance time RLE, L knee hyperextension 2/2 hemiparesis Posture: L knee genu valgus, L foot drop 2/2 chronic hemiparesis Squat: NT Patellar Mobility: Right WFL all plants Left WFL all planes Knee AROM Right: 0-120 Left: 0-95 with muscle spasms Strength: Right Left Iliopsoas 4/5 3-/5 Quads 4+/5 4+/5 Hamstrings 4+/5 4+/5 Glut max Glut med Ankle dorsiflexion 5/5 2+/5 Muscle length: Right Left Quads Hamstrings mod tightness mod tightness ITB Treatment provided: -Reviewed current HEP -stationary bike x10 min AAROM, seat level decreased to 5, no added resistance -Standing bilateral hip abduction with red theraband around thighs with BUE support on rails -Seated calf stretch RLE with looped strap Manual therapy: -Manual stretch/mobilization R knee flex/ext [...] demos improved R knee ROM and tolerated exercises. Will trial leg press next session. Continue per POC. 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 /es/ TERRELL COLES PHYSICAL THERAPIST Signed: 01/11/2025 16:14 TERRELL COLES [facility]
--- OUTSIDE RECORDS SUMMARY | 2025-01-18 04:30 | XMS_ITS | Encounter Summary ---
Author Name [facility] [place] [facility] [place] Address [address] [place] [id number] Care Team Providers Care Blending Machine Operator Name Role Phone KOLE GARY [...] Patient's Relationship to Policy Wiseman AUNG GOLD [facility] (WNR) MEDICARE ADVANTAGE [facility] (WNR) Aug 03, 2017 [facility] (WN) [id number] [phone] FR RAE SEPULVEDA PATIENT [employer] M[facility] (WNR) MEDICARE ADVANTAGE MCR (WNR) December 01, 2022 [id number] [phone] FR RAE SEPULVEDA PATIENT [employer] [facility] (WNR) MEDICARE ADVANTAGE MCR (WNR) December 01, 2022 [id number] [phone] FR COCO ANK PATIENT [employer] M[facility] (WNR) MEDICARE ADVANTAGE MCR ( WNR) December 01, 2022 [id number] [phone] FR RAE SEPULVEDA PATIENT [employer] M[facility] (WNR) MEDICARE ADVANTAGE [facility] (WNR) Aug 03, 2021 [id number] [phone] FR RAE SEPULVEDA PATIENT [facility] [place] (WNR) MEDICARE ADVANTAGE [facility] (WNR) Aug 03, 2017 [id number] [phone] FR RAE SEPULVEDA PATIENT [facility] [place] (WNR) MEDICARE ADVANTAGE [facility] (WNR) Aug 03, 2017 [id number] [phone] FR RAE SEPULVEDA PATIENT Selected Encounter This section includes the information on record at [place] for the Encounter. Date/Time Encounter Type Encounter Description Reason Provider Source Jan 18, 2025 09:30 AM THERAPEUTIC EXERCISES PHYSICAL THERAPY ICD-10-CM Z47.1 Aftercare following joint replacement surgery ANA COLES [facility] Encounter Template Text not used by [place] Assessments - Encounter Diagnoses This section includes the primary and secondary diagnoses documented for the Encounter. Date/Time Primary/Secondary Diagnosis Diagnosis Name Provider Source Jan 18, 2025 10:26 AM PRIMARY Aftercare following joint replacement surgery GORDO GREGORY [facility] Plan of Treatment: Future Appointments (+ 6 months) and Future Tests (+/- 45 days) The Plan of Treatment section includes future care activities for the patient from all [place] [facility] This section includes future appointments and future orders which are active, pending or scheduled. Future Appointments This section includes appointments that were scheduled to occur 6 months from the date of the Encounter, up to a maximum of 20 appointments. The data comes from all [place] treatment facilities. Appointment Date/Time Appointment Type Appointme nt Facility Name Jan 23, 2025 09:30 AM AMBULATORY - MEDICINE [facility] Jan 25, 2025 10:30 AM AMBULATORY - REHAB MEDICIN [facility] Jan 30, 2025 09:00 AM AMBULATORY - REHAB MED[facility]IN [facility] Jan 30, 2025 09:30 AM AMBULATORY - MEDICINE [facility] Jan 30, 2025 10:00 AM AMBULATORY - SURGERY [facility] Feb 06, 2025 09:00 AM AMBULATORY - REHAB MED[facility]IN [facility] Feb 06, 2025 09:30 AM AMBULATORY - MEDICINE [facility] Feb 13, 2025 10:30 AM AMBULATORY - MEDICINE [facility] Feb 15, 2025 09:00 AM AMBULATORY - REHAB MED[facility]IN [facility] Feb 20, 2025 09:00 AM AMBULATORY - REHAB MED[facility]IN [facility] Feb 23, 2025 10:00 AM AMBULATORY - SURGERY [facility] Feb 27, 2025 09:30 AM AMBULATORY - MEDICINE [facility] Mar 30, 2025 01:15 PM AMBULATORY - MEDICINE [facility] Apr 12, 2025 12:00 PM AMBULATORY - NONE [facility] May 01, 2025 09:30 AM AMBULATORY - SURGERY [facility] May 16, 2025 10:00 AM AMBULATORY - SURGERY [facility] May 16, 2025 11:00 AM AMBULATORY - REHAB MEDICIN E [facility] May 31, 2025 10:00 AM AMBULATORY - NONE [facility] Jun 28, 2025 09:00 AM AMBULATORY - SURGERY [facility] Lab Results: +/- 30 days of the encounter This section includes the Chemistry and Hematology Lab Results on record with [place] for the patient. Radiology Reports and Pathology Reports are provided separately, in subsequent sections. Lab Results This section contains the Chemistry/Hematology Results that were resulted 30 days before or 30 daysafter the date of the Encounter. Date/Time Source Result Type Result - Unit Interpretation Reference Range Specimen Type Comment Feb 13, 2025 11:14 AM [facility] LDH PLASMA Specimen Type: PLASMA Comment: No hemolysis noted. Ordering Provider: KHOI GRIFFIN Report Released Date/Time: Jan 11, 2025 12:19 PM Reporting Lab: [facility] [address] [facility] [address] Performing Lab: [facility] [address] [facility] [address] LDH 325 U/L H 125-243 Feb 13, 2025 11:14 AM [facility] COMPREHENSIVE METABOLIC PANEL PLASMA Specimen Type: PLASMA Comment: No hemolysis noted. Ordering Provider: KHOI GRIFFIN Report Released Date/Time: Jan 11, 2025 12:19 PM Reporting Lab: [address] [address] Performing Lab: [address] [address] CREATININE 1.09 mg/dL 0.7-1.3 UREA NITROGEN 21.0 mg/dL 9.0-25.0 GLUCOSE 95 mg/dL 72-99 SODIUM 127 meq/L L 136-145 POTASSIUM 5.0 meq/L 3.5-5 CHLORIDE 93 meq/L L 98-107 CARBON DIOXIDE 27 meq/L 22-31 CALCIUM 9.6 mg/dL 8.4-10.4 PROTEIN 6.9 g/dL 6-8.6 ALBUMIN 4.1 g/dL 3.4-5 TOTAL BILIRUBIN 0.5 mg/dL 0.2-1.2 ALKALINE PHOSPHATASE 90 U/L 40-150 AST/SGOT 67 U/L H 5-34 ALT/SGPT 33 U/L 8-40 EGFR (CKD-EPI 2020) 69.0 >60 Feb 13, 2025 11:14 AM [facility] CBC BLOOD Specimen Type: BLOOD No comment entered. Ordering Provider: KHOI GRIFFIN Report Released Date/Time: Jan 11, 2025 12:19 PM Reporting Lab: [address] [address] Performing Lab: [address] [address] WBC 7.3 10*3/uL 3.6-11.2 RBC 4.24 10*6/uL 4.10-5.70 HGB 12.2 g/dL L 13.1-16.8 HCT 37.1 L 38.2-48.4 MCV 87.5 fL 80.0-100.0 MCH 28.8 pg 27.0-34.0 MCHC 32.9 g/dL L 33.0-36.0 PLT 282 10*3/uL 150-400 MPV 8.8 fL 7.5-11.2 RDW 13.4 11.8-15.1 LYMPHOCYTES, AUTO % 33 MONOCYTES, AUTO % 10 NEUTROPHILS, AUTO % 55 EOSINOPHILS, AUTO % 1 BASOPHILS, AUTO % 1 LYMPHOCYTES, ABSOLUTE 2.38 10*3/uL 0.77- 4.50 MONOCYTES, ABSOLUTE 0.75 10*3/uL 0.19-0. 80 NEUTROPHILS, ABSOLUTE 4.04 10*3/uL 2.10- 8.00 EOSINOPHILS, ABSOLUTE 0.09 10*3/uL 0.00- 0.60 BASOPHILS, ABSOLUTE 0.05 10*3/uL 0.00-0. 20 Jan 10, 2025 09:22 AM [facility] LDH PLASMA Specimen Type: PLASM A Comment: No hemolysis noted. Ordering Provider: KHOI GRIFFIN Report Released Date/Time: Jan 11, 2024 01:34 PM Reporting Lab: [address] [address] Performing Lab: [address] [address] LDH 149 U/L 125-243 Jan 10, 2025 09:22 AM [facility] COMPREHENSIVE METABOLIC PANEL PLASMA Specimen Type: PLASMA Comment: No hemolysis noted. Ordering Provider: KHOI GRIFFIN Report Released Date/Time: Jan 11, 2024 01:34 PM Reporting Lab: [address] [address] Performing Lab: [address] [address] CREATININE 1.02 mg/dL 0.7-1.3 UREA NITROGEN 17.9 [...] 74.8 >60 Jan 10, 2025 09:22 AM [facility] CBC BLOOD Specimen Type: BLOOD No comment entered. Ordering Provider: KHOI GRIFFIN Report Released Date/Time: Jan 11, 2024 01:34 PM Reporting Lab: [facility] [address] [facility] [address] Performing Lab: [facility] [address] [facility] [address] WBC 6.4 10*3/uL 3.6-11.2 RBC 4.39 10*6/uL [...] Height Weight Body Mass Index Source Jan 18, 2025 10:39 AM 96.4 F 72 /min 107/63 mm[Hg] 18 /min 98 % [address] [facility] Social History: Smoking Status (Most current) and Tobacco Use (All prior to encounter date) This section includes the most current, and the historical, smoking and tobacco- related health factors from the [place] facility where the Encounter took place. Current Smoking Status This section includes the most current smoking, or tobacco-related health factor, from the [place] facility where the Encounter took place. Date/Time Current Smoking Status Comment Janet cortez Aug 09, 2024 09:30 AM VA-TOBACCO USE FOR SARAI ARAUJO [facility] Tobacco Use History This section includes a history of the smoking, or tobacco-related health factors, that were collected on or before the date of the Encounter. The data comes from the [place] facility where the Encounter took place. Date/Time Smoking Status/Tobacco Use Comment F catarino Aug 09, 2024 09:30 AM VA-TOBACCO USE FOR SARAI ARAUJO [facility] Advance Directives: All historical and current Section Date Range: From patient's date of to the date document was created. This section includes ALL of a patient's completed or amended [place] Advance and Rescinded Directives. The entries below indicate that a directive exists for the patient, but an actual copy is not included with this document. The data comes from all [place] facilities. Date Advance Directives Provider Source Jun 12, 2016 [address]IVE [address] [facility] December 24, 2011 ADVANCE DIRECTIVE DISCUSSION TOMMY VAZQUEZ [facility] Encounter Notes: All associated encounter notes This section contains the clinical notes associated to the Encounter. Date/Time Encounter Note(s) Provider Source Jan 18, 2025 10:09 AM PHYSICAL MEDICINE REHAB NOTE: LOCAL TITLE: PT DAILY STL STANDARD TITLE: PHYSICAL MEDICINE REHAB NOTE DATE OF NOTE: JAN 18, 2025@10:09 ENTRY DATE: JAN 18, 2025@10:10:08 AUTHOR: ANNE GREGORY COSIGNER: TERRELL COLES URGENCY: STATUS: COMPLETED PT DAILY STL Has ADDENDA PHYSICAL THERAPY DAILY NOTE Provisional dx: Z47.1 Start of Care: 12/19/24 Reevaluation due: POC through: Visits to date: 4 No shows/cancellations: 1 Treatment time: 30 - 1000 Total: 30 mins. Therapeutic exercise: 25 mins. 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 Subjective: reports he has not been able to do entire HEP secondary to L knee pain. --Pain Rating (0-10): Current: 0/10 Best: 0/10 Worst: /10 Location: R knee --Patient goal(s): Pt reports [...] -stationary bike x10 min AAROM, seat level set to 5, no added resistance -Standing bilateral hip abduction with red theraband around thighs with BUE support on rails, -Leg press 2x10 at 90lbs, 2x10 at 120lb -Mini squats in parallel bars -Seated heel slides and LAQ with red theraband around ankles Manual therapy: -Manual stretch R knee flex/ext performed by SPTA for improved R knee AROM -PROM R knee: 5-125 Current HEP 1. Seated hamstring stretch RLE, [...] are in line with one another Assessment: [place] demonstrated an increased range of motion in R knee. Tolerated treatment with no adverse effects. 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 /brianda/ ANNE GREGORY PHYSICAL THERAPY STUDENT Signed: 01/18/2025 10:26 /brianda/ TERRELL COLES PHYSICAL THERAPIST Cosigned: 01/18/2025 10:26 01/18/2025 ADDENDUM STATUS: COMPLETED The patient was seen for the diagnosis of TKA The patient was assessed, and the treatment was provided under the appropriate level of supervision from the primary Physical Therapist (PT) for the following activities this session: therapeutic exercises, manual stretching. The clinical decision-making process for the treatment provided; patient response to treatment; therapist assessment of the response to treatment; and plan of care documented in this note have been formulated and approved by the primary PT. Encounter data migration lead was approved by the primary PT and is accurate for the services provided. /brianda/ TERRELL COLES PHYSICAL THERAPIST Signed: 01/18/2025 10:27 ANNE GREGORY [facility]
--- OUTSIDE RECORDS SUMMARY | 2025-01-18 05:30 | XMS_ITS | Encounter Summary ---
Author Name [facility] [place] [facility] [place] [facility] [place] Address [address] [place] [address] Care Team Providers Care Gluing Pressman Name Role Phone KOLE GARY Primary Care [...] Patient's Relationship to Policy Wiseman [facility] (WNR) MEDICARE [facility] (WNR) Aug 03, 2017 [facility] ([facility]) [id number] [phone] FR RAE SEPULVEDA PATIENT [employer] [facility] (WNR) MEDICARE ADVANTAGE [facility] (WNR) December 01, 2022 [id number] [phone] [id number] FR RAE SEPULVEDA PATIENT [employer] [facility] (WNR) MEDICARE ADVANTAGE [facility] (WNR) December 01, 2022 [id number] [phone] FR COCO ANK PATIENT [employer] [facility] (WNR) MEDICARE ADVANTAGE [facility] ( WNR) December 01, 2022 [id number] [phone] [id number] FR RAE SEPULVEDA PATIENT [employer] [facility] (WNR) MEDICARE ADVANTAGE [facility] (WNR) Aug 03, 2021 [id number] [phone] FR RAE SEPULVEDA PATIENT [employer] [facility] (WNR) MEDICARE ADVANTAGE [facility] (WNR) Aug 03, 2017 [id number] [phone] FR COCO ANK PATIENT [employer] [facility] (WNR) MEDICARE ADVANTAGE [facility] (WNR) Aug 03, 2017 [id number] [phone] FR RAE SEPULVEDA PATIENT Selected Encounter This section includes the information on record at [place] for the Encounter. Date/Time Encounter Type Encounter Description Reason Provider Source Jan 18, 2025 10:30 AM OFFICE O/P EST LOW 20 MIN ORTHO/JOINT SURG ICD-10-CM M17.12 Unilateral primary osteoarthritis, left knee JEANA,KEIRSTIN A [facility] Encounter Template Text not used by [place] Assessments - Encounter Diagnoses This section includes the primary and secondary diagnoses documented for the Encounter. Date/Time Primary/Secondary Diagnosis Diagnosis Name Provider Source Jan 18, 2025 11:56 AM PRIMARY Unilateral primary osteoarthritis, left knee JEANA,KEIRSTIN A [facility] Jan 18, 2025 11:56 AM SECONDARY Iliotibial band syndrome, left leg JEANA,KEIRSTIN A [facility] Plan of Treatment: Future Appointments (+ 6 months) and Future Tests (+/- 45 days) The Plan of Treatment section includes future care activities for the patient from all [place] [facility] [facility]. This section includes future appointments and future orders which are active, pending or scheduled. Future Appointments This section includes appointments that were scheduled to occur 6 months from the date of the Encounter, up to a maximum of 20 appointments. The data comes from all [place] treatment facilities. Appointment Date/Time Appointment Type Appointme nt Facility Name Jan 23, 2025 09:30 AM AMBULATORY - MEDICINE [facility] Jan 25, 2025 10:30 AM AMBULATORY - REHAB MEDICIN E [facility] Jan 30, 2025 09:00 AM AMBULATORY - REHAB MEDICIN E [facility] Jan 30, 2025 09:30 AM AMBULATORY - MEDICINE [facility] Jan 30, 2025 10:00 AM AMBULATORY - SURGERY [facility] Feb 06, 2025 09:00 AM AMBULATORY - [facility] Feb 06, 2025 09:30 AM AMBULATORY - MEDICINE [facility] Feb 13, 2025 10:30 AM AMBULATORY - MEDICINE [facility] Feb 15, 2025 09:00 AM AMBULATORY - [facility] Feb 20, 2025 09:00 AM AMBULATORY - REHAB MEDICIN E [facility] Feb 23, 2025 10:00 AM AMBULATORY - SURGERY [facility] Feb 27, 2025 09:30 AM AMBULATORY - MEDICINE [facility] Mar 30, 2025 01:15 PM AMBULATORY - MEDICINE [facility] Apr 12, 2025 12:00 PM AMBULATORY - NONE [facility] May 01, 2025 09:30 AM AMBULATORY - SURGERY [facility] May 16, 2025 10:00 AM AMBULATORY - SURGERY [facility] May 16, 2025 11:00 AM AMBULATORY - REHAB MEDICIN E [facility] May 31, 2025 10:00 AM AMBULATORY - NONE [facility] Jun 28, 2025 09:00 AM AMBULATORY - SURGERY [facility] Lab Results: +/- 30 days of [...] Type Comment Feb 13, 2025 11:14 AM [facility] LDH PLASMA Specimen Type: PLASMA Comment: No hemolysis noted. Ordering Provider: KHOI GRIFFIN Report Released Date/Time: Jan 11, 2025 12:19 PM Reporting Lab: [facility] [address] [facility] [address] Performing Lab: [facility] [address] [facility] [address] LDH 325 U/L H 125-243 Feb 13, 2025 11:14 AM [facility] COMPREHENSIVE METABOLIC PANEL PLASMA Specimen Type: PLASMA Comment: No hemolysis noted. Ordering Provider: KHOI GRIFFIN Report Released Date/Time: Jan 11, 2025 12:19 PM Reporting Lab: [address] [address] Performing Lab: [address] [address] CREATININE 1.09 mg/dL 0.7-1.3 UREA NITROGEN 21.0 [...] 69.0 >60 Feb 13, 2025 11:14 AM [facility] CBC BLOOD Specimen Type: BLOOD No comment entered. Ordering Provider: KHOI GRIFFIN Report Released Date/Time: Jan 11, 2025 12:19 PM Reporting Lab: [address] [address] Performing Lab: [address] [address] WBC 7.3 10*3/uL 3.6-11.2 RBC 4.24 10*6/uL [...] 0.00-0. 20 Jan 10, 2025 09:22 AM [facility] LDH PLASMA Specimen Type: PLASM A Comment: No hemolysis noted. Ordering Provider: KHOI GRIFFIN Report Released Date/Time: Jan 11, 2024 01:34 PM Reporting Lab: [address] [address] Performing Lab: [address] [address] LDH 149 U/L 125-243 Jan 10, 2025 09:22 AM [facility] COMPREHENSIVE METABOLIC PANEL PLASMA Specimen Type: PLASMA Comment: No hemolysis noted. Ordering Provider: KHOI GRIFFIN Report Released Date/Time: Jan 11, 2024 01:34 PM Reporting Lab: [address] [address] Performing Lab: [address] [address] CREATININE 1.02 mg/dL 0.7-1.3 UREA NITROGEN 17.9 [...] 74.8 >60 Jan 10, 2025 09:22 AM [facility] CBC BLOOD Specimen Type: BLOOD No comment entered. Ordering Provider: KHOI GRIFFIN Report Released Date/Time: Jan 11, 2024 01:34 PM Reporting Lab: [facility] [address] [facility] [address] Performing Lab: [facility] [address] [facility] [address] WBC 6.4 10*3/uL 3.6-11.2 RBC 4.39 10*6/uL [...] % 0 69 in 209.2 lb 31 [facility] Social History: Smoking Status (Most current) and Tobacco Use (All prior to encounter date) This section includes the most current, and the historical, smoking and tobacco- related health factors from the [place] facility where the Encounter took place. Current Smoking Status This section includes the most current smoking, or tobacco-related health factor, from the [place] facility where the Encounter took place. Date/Time Current Smoking Status Comment Janet cortez Aug 09, 2024 09:30 AM VA-TOBACCO USE FOR SARAI [place] [facility] Tobacco Use History This section includes a history of the smoking, or tobacco-related health factors, that were collected on or before the date of the Encounter. The data comes from the [place] facility where the Encounter took place. Date/Time Smoking Status/Tobacco Use Comment Patrick toribio Aug 09, 2024 09:30 AM VA-TOBACCO USE FOR SARAI [employer] [facility] Advance Directives: All historical and current Section Date Range: From patient's date of to the date document was created. This section includes ALL of a patient's completed or amended [place] Advance and Rescinded Directives. The entries below indicate that a directive exists for the patient, but an actual copy is not included with this document. The data comes from all [place] facilities. Date Advance Directives Provider Source Jun 12, [address] [facility] December 24, 2011 ADVANCE DIRECTIVE DISCUSSION TOMMY VAZQUEZ [facility] Encounter Notes: All associated encounter notes This section contains the clinical notes associated to the Encounter. Date/Time Encounter Note(s) Provider Source Jan 18, 2025 11:49 AM ORTHOPEDIC SURGERY NOTE: LOCAL TITLE: ORTHOPEDIC ST STANDARD TITLE: ORTHOPEDIC SURGERY NOTE DATE OF NOTE: JAN 18, 2025@11:49 ENTRY DATE: JAN 18, 2025@11:49:06 AUTHOR: SUSANNA HILLS COSIGNER: URGENCY: STATUS: COMPLETED Name: JOYCELYN SEPULVEDA SSN: [id number] AGE: 78 : December HPI: JOYCELYN SEPULVEDA is a 78 MALE who presents to [facility] on 18 January 2025 for follow up left knee. Patient underwent a right TKA with great success. His range of motion is 0 to 125 degrees currently. His left knee is more bothersome in recent months. He had a Durolane injection in June 2024 with good results. When compared to the steroid injection he felt that they were equal and relief. He is hoping for repeat injection today. In addition his left hip has been more bothersome particularly at night when he is trying to lay down to rest. He denies any specific injury. His left side is weaker due to a prior stroke. Initial History: MAR 10, 2024 for evaluation of right knee pain. History of surgery in the 70's. Rest helps but does not resolve, walking is terribly painful. Uses cane and braces. History of a stroke that impacted his left side, so he relies heavily on the right leg for support, ambulation and strength. He attempts to remain active, going to the [employer] to workout several times/week. He endorses the occaional buckling, concerned about the stability as much as the pain. Vitals: 01/18/25 10:39 T: 96.4 F (35.8 C) P: 72 R: 18 B/P: 107/63 Ht: 69.00 in (175.26 cm) Wt: 209.20 lb (94.89 kg) Body Mass Index: 31* Pulse Oximetry: 98% Pain: 0 - No pain Physical Exam: General - Alert & oriented x 3, pleasant, cooperative, appears stated age. Musculoskeletal - Left Lower Extremity - No joint effusion, erythema, ecchymosis or signs of infection throughout extremity. No muscular atrophy noted. Mild tenderness with palpation of the knee joint line medially, mildly over the greater trochanter and along the IT band. Patient can actively flex and extend knee without difficulty but has discomfort. Crepitus noted. Moderate strength against resistance. Negative Danni's and anterior drawer test. Laxity with varus stress. Sensation intact in all distributions. Toes pink and warm with capillary refill < 2 seconds. DP pulse 2+. Calf soft and nontender. Xrays: KNEE,RIGHT 3 VIEWS (RAD Detailed) CPT:55076 Proc Modifiers : RIGHT, LATERAL, Stand AP, [place] Reason for Study: R knee pain post fall last week Clinical History: Report Status: Verified Date Reported: NOV 11, 2023 Date Verified: NOV 11, 2023 Moving Picture Operator E-Sig:/ES/PUNEET PAIZ MD Report: 3 views COMPARISON: None No acute fracture or dislocation Moderately severe tricompartmental osteoarthritis with joint space narrowing and osteophytes. Other: None Impression: Tricompartmental osteoarthritis Primary Interpreting Staff: PUNEET PAIZ MD, Radiologist (Moving Picture Operator) Assessment: Left knee osteoarthritis, left hip bursitis/IT band syndrome Plan: The anatomic basis and natural history of the problem were discussed with the patient. The patient conveyed an understanding of the condition. The following recommendations were made: - Corticosteroid injection left hip bursa. - Durolane injection left knee. LEFT KNEE: The risks, benefits and treatment [...] or tenderness, seek medical attention promptly. Durolane [id number] 2027-05-02 1% lidocaine lot [id number] Exp LEFT HIP: The risks, benefits and treatment alternatives were discussed with the patient who wishes to proceed with right hip greater trochanteric bursa cortisone injection. A timeout was held, patient's name, , last 4 of SSN, and site of injection were verified with the patient, and consent was obtained. The patient was positioned laying on his left side on the examination table with the knees flexed 45 . The left hip greater trochanteric bursa was prepped with chloraprep x 30 seconds. Using a 25 gauge needle, the left hip greater trochanteric bursa was injected with 40mg of Kenalog and [...] redness or tenderness, seek medical attention promptly. 1% Lidocaine [id number] 40mg Kenalog [id number] December2025 /es/ SUSANNA HILLS PA-C Physician Community Health Program Representative, Orthopedic Signed: 01/18/2025 11:56 SUSANNA HILLS [facility]
--- OUTSIDE RECORDS SUMMARY | 2025-01-25 05:30 | XMS_ITS | Encounter Summary ---
Author Name [facility] [place] Organization [place] Address [address] [place] [address] Care Team Providers Care Traffic Engineering Director Name Role Phone KOLE GARY Primary Care [...] Relationship to Policy Wiseman AUNG GOLD [facility] (WNR) MEDICARE ADVANTAGE [facility] (WNR) Aug 03, 2017 [facility] (WN) [id number] [phone] FR RAE SEPULVEDA PATIENT [facility] MCR (WNR) MEDICARE ADVANTAGE MCR (WNR) December 01, 2022 [id number] [phone] [id number] FR RAE SEPULVEDA PATIENT [employer] MCR (WNR) MEDICARE ADVANTAGE MCR (WNR) December 01, 2022 [id number] [phone] [id number] FR COCO ANK PATIENT [employer] MCR (WNR) MEDICARE ADVANTAGE MCR ( WNR) December 01, 2022 [id number] [phone] FR RAE SEPULVEDA PATIENT [employer] MCR (WNR) MEDICARE ADVANTAGE [facility] (WNR) Aug 03, 2021 [id number] [phone] [id number] FR RAE SEPULVEDA PATIENT A[facility]G [place] (WNR) MEDICARE ADVANTAGE [facility] (WNR) Aug 03, 2017 [id number] [phone] FR RAE SEPULVEDA PATIENT AUNG [place] (WNR) MEDICARE ADVANTAGE [facility] (WNR) Aug 03, 2017 [id number] [phone] FR RAE SEPULVEDA PATIENT Selected Encounter This section includes the information on record at [place] for the Encounter. Date/Time Encounter Type Encounter Description Reason Provider Source Jan 25, 2025 10:30 AM THERAPEUTIC EXERCISES PHYSICAL THERAPY ICD-10-CM Z47.1 Aftercare following joint replacement surgery ANA COLES [facility] Encounter Template Text not used by [place] Assessments - Encounter Diagnoses This section includes the primary and secondary diagnoses documented for the Encounter. Date/Time Primary/Secondary Diagnosis Diagnosis Name Provider Source Jan 25, 2025 11:23 AM PRIMARY Aftercare following joint replacement surgery JOSH COLES [facility] Plan of Treatment: Future Appointments (+ 6 months) and Future Tests (+/- 45 days) The Plan of Treatment section includes future care activities for the patient from all [place] [facility]. This section includes future appointments and future orders which are active, pending or scheduled. Future Appointments This section includes appointments that were scheduled to occur 6 months from the date of the Encounter, up to a maximum of 20 appointments. The data comes from all [place] treatment facilities. Appointment Date/Time Appointment Type Appointme nt Facility Name Jan 30, 2025 09:00 AM AMBULATORY - REHAB MEDICIN E [facility] Jan 30, 2025 09:30 AM AMBULATORY - MEDICINE [facility] Jan 30, 2025 10:00 AM AMBULATORY - SURGERY [facility] Feb 06, 2025 09:00 AM AMBULATORY - REHAB MEDICIN E [facility] Feb 06, 2025 09:30 AM AMBULATORY - MEDICINE [facility] Feb 13, 2025 10:30 AM AMBULATORY - MEDICINE [facility] Feb 15, 2025 09:00 AM AMBULATORY [facility] Feb 20, 2025 09:00 AM AMBULATORY - REHAB MEDICIN E [facility] Feb 23, 2025 10:00 AM AMBULATORY - SURGERY [facility] Feb 27, 2025 09:30 AM AMBULATORY - MEDICINE [facility] Mar 30, 2025 01:15 PM AMBULATORY - MEDICINE [facility] Apr 12, 2025 12:00 PM AMBULATORY - NONE [facility] May 01, 2025 09:30 AM AMBULATORY - SURGERY [facility] May 16, 2025 10:00 AM AMBULATORY - SURGERY [facility] May 16, 2025 11:00 AM AMBULATORY - RE[facility]AB [facility] May 31, 2025 10:00 AM AMBULATORY - NONE [facility] Jun 28, 2025 09:00 AM AMBULATORY - SURGERY [facility] Active, Pending, and Scheduled Orders This section includes a listing of several types of active, pending, and scheduled orders, including clinic medications orders, diagnostic test orders, procedure orders and consult orders; where thestart date of the order is 45 days before the date of the Encounter or 45 days after the date of the Encounter. The data comes from all [place] treatment facilities. Test Date/Time Test Type Test Details Facility Name Mar 11, 2025 09:03 PM Consult Order PRE OP ORT HO THERAPY EVAL OUTPT STL Cons [facility] Mar 11, 2025 09:03 PM Procedure Order CP EKG STL CP EKG - STL Proc [facility] Lab Results: +/- 30 days of the encounter This section includes the Chemistry and Hematology Lab Results on record with [place] for the patient. Radiology Reports and Pathology Reports are provided separately, in subsequent sections. Lab Results This section contains the Chemistry/Hematology Results that were resulted 30 days before or 30 daysafter the date of the Encounter. Date/Time Source Result Type Result - Unit Interpretation Reference Range Specimen Type Comment Feb 13, 2025 11:14 AM [facility] LDH PLASMA Specimen Type: PLASMA Comment: No hemolysis noted. Ordering Provider: KHOI GRIFFIN Report Released Date/Time: Jan 11, 2025 12:19 PM Reporting Lab: [facility] [address] [place] [phone] Performing Lab: [address] [address] LDH 325 U/L H 125-243 Feb 13, 2025 11:14 AM [facility] COMPREHENSIVE METABOLIC PANEL PLASMA Specimen Type: PLASMA Comment: No hemolysis noted. Ordering Provider: KHOI GRIFFIN Report Released Date/Time: Jan 11, 2025 12:19 PM Reporting Lab: [address] [address] Performing Lab: [address] [address] CREATININE 1.09 mg/dL 0.7-1.3 UREA NITROGEN 21.0 [...] 69.0 >60 Feb 13, 2025 11:14 AM [facility] CBC BLOOD Specimen Type: BLOOD No comment entered. Ordering Provider: KHOI GRIFFIN Report Released Date/Time: Jan 11, 2025 12:19 PM Reporting Lab: [facility] [address] [place] [phone] Performing Lab: [address] [address] WBC 7.3 10*3/uL 3.6-11.2 RBC 4.24 10*6/uL [...] 0.00-0. 20 Jan 10, 2025 09:22 AM [facility] LDH PLASMA Specimen Type: PLASM A Comment: No hemolysis noted. Ordering Provider: KHOI GRIFFIN Report Released Date/Time: Jan 11, 2024 01:34 PM Reporting Lab: [address] [address] Performing Lab: [address] [address] LDH 149 U/L 125-243 Jan 10, 2025 09:22 AM [facility] COMPREHENSIVE METABOLIC PANEL PLASMA Specimen Type: PLASMA Comment: No hemolysis noted. Ordering Provider: KHOI GRIFFIN Report Released Date/Time: Jan 11, 2024 01:34 PM Reporting Lab: [address] [address] Performing Lab: [address] [address] CREATININE 1.02 mg/dL 0.7-1.3 UREA NITROGEN 17.9 [...] 74.8 >60 Jan 10, 2025 09:22 AM [facility] CBC BLOOD Specimen Type: BLOOD No comment entered. Ordering Provider: KHOI GRIFFIN Report Released Date/Time: Jan 11, 2024 01:34 PM Reporting Lab: [facility] [address] [facility] [address] Performing Lab: [facility] [address] [facility] [address] WBC 6.4 10*3/uL 3.6-11.2 RBC 4.39 10*6/uL [...] and tobacco- related health factors from the [place] facility where the Encounter took place. Current Smoking Status This section includes the most current smoking, or tobacco-related health factor, from the [place] facility where the Encounter took place. Date/Time Current Smoking Status Comment Janet cortez Aug 09, 2024 09:30 AM VA-TOBACCO USE FOR SARAI CIGARETTES [facility] Tobacco Use History This section includes a history of the smoking, or tobacco-related health factors, that were collected on or before the date of the Encounter. The data comes from the [place] facility where the Encounter took place. Date/Time Smoking Status/Tobacco Use Comment F catarino Aug 09, 2024 09:30 AM VA-TOBACCO USE FOR SARAI CIGARETTES [facility] Advance Directives: All historical and current Section Date Range: From patient's date of to the date document was created. This section includes ALL of a patient's completed or amended [place] Advance and Rescinded Directives. The entries below indicate that a directive exists for the patient, but an actual copy is not included with this document. The data comes from all [place] facilities. Date Advance Directives Provider Source Jun [...] the Encounter. The data comes from all [place] treatment facilities. 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 No Report Status: Verified Date Reported: FEB 24, 2025 Date Verified: FEB 24, 2025 Truckload Checker E-Sig:/ES/GIANNA CLAY Report: EXAMINATION: KNEE,RIGHT 3 VIEWS, KNEE,LEFT 1 OR 2 VIEWS [id number] DATE: 02/23/2025 9:17 AM HISTORY: 4wk pov RTKA(11/18/2024 DR VITAL). COMPARISON: Right knee November 2024. VIEWS:5 FINDINGS:Stable right knee arthroplasty with no delayed complication. No fracture, subluxation or dislocation. No focal destructive process. Degenerative changes left knee. Impression: 1. Stable right knee arthroplasty with no delayed complication, acute injury or focal destructive process. 2. Degenerative changes left knee. Primary Interpreting Staff: GIANNA CLAY, RADIOLOGIST (Truckload Checker) /[facility] Encounter Notes: All associated encounter notes This section contains the clinical notes associated to the Encounter. Date/Time Encounter Note(s) Provider Source Jan 25, 2025 10:47 AM PHYSICAL MEDICINE REHAB NOTE: LOCAL TITLE: PT PROGRESS STL STANDARD TITLE: PHYSICAL MEDICINE REHAB NOTE DATE OF NOTE: JAN 25, 2025@10:47 ENTRY DATE: JAN 25, 2025@10:47:21 AUTHOR: TERRELL COLES COSIGNER: URGENCY: STATUS: COMPLETED PHYSICAL THERAPY DAILY NOTE Provisional dx: Z47.1 Start of Care: 12/19/24 Reevaluation due: POC through: Visits to date: 4 No shows/cancellations: 1 Treatment time: 1830-5275 Total: 30 mins. Therapeutic exercise: 30 mins. Manual therapy: min s/p R TKA 11/21/2024 Subjective: [place] reports IT band feels tight today, L knee and hip continue to cause pain however recently got injections in L hip and knee which helped --Pain Rating (0-10): Current: 0/10 Best: 0/10 Worst: /10 Location: R knee --Patient goal(s): Pt reports wants to get back to walking with cane again Objective: Assistive Device: rollator walker Gait: decreased stance time RLE, L knee hyperextension 2/2 hemiparesis Posture: L knee genu valgus, L foot drop 2/2 chronic hemiparesis Squat: NT Patellar Mobility: Right WFL all planes Left WFL all planes Knee AROM Right: 0-125 Left: 0-95 with muscle spasms Strength: Right Left Iliopsoas 4/5 3-/5 Quads 4+/5 4+/5 Hamstrings 5/5 4+/5 Glut max Glut med Ankle dorsiflexion 5/5 2+/5 Muscle length: Right Left Quads Hamstrings mod tightness mod tightness ITB Treatment provided: -Reviewed current HEP -stationary bike x5 min AAROM, seat level set to 5, resistance level 2 -Leg press 2x10 at 120lbs BLE -Supine IT band stretch using stretch strap 3x20 sec hold -Supine bridges with 1-2 sec pause, 2x10 reps -Sidelying clamshells with green theraband 2x10 reps Current HEP 1. Seated hamstring stretch RLE, [...] are in line with one another Assessment: [place] demos R knee AROM WNL, some mild strength deficits present. Reviewed hip exercises and stretches to manage tightness in knee. Continue per PT POC. Offered 2x/week, however due to [...] AROM = 0-120 deg - GOAL MET USP: (12 weeks) 1) Pt will demonstrate independence [...] well. /brianda/ TERRELL COLES PHYSICAL THERAPIST Signed: 01/25/2025 11:23 [facility]
--- OUTSIDE RECORDS SUMMARY | 2025-01-30 04:00 | XMS_ITS | Encounter Summary ---
Author Name [facility] [place] Address [address] [place] [address] Care Team Providers Care French Teacher Name Role Phone KOLE GARY Primary [...] Aug 03, 2017 [employer] (WN) [id number] [phone] FR RAE SEPULVEDA PATIENT [employer] MCR (WNR) MEDICARE ADVANTAGE MCR (WNR) December 01, 2022 [id number] [id number] FR RAE SEPULVEDA PATIENT [employer] MCR (WNR) MEDICARE ADVANTAGE MCR (WNR) December 01, 2022 [id number] [phone] [id number] FR COCO ANK PATIENT [employer] MCR (WNR) MEDICARE ADVANTAGE MCR ( WNR) December 01, 2022 [id number] [phone] 2 FR RAE SEPULVEDA PATIENT [employer]NA MCR (WNR) MEDICARE ADVANTAGE [employer] (WNR) Aug 03, 2021 [id number] [phone] [id number] FR RAE SEPULVEDA PATIENT [facility] [place] (WNR) MEDICARE ADVANTAGE [employer] (WNR) Aug 03, 2017 [id number] FR RAE SEPULVEDA PATIENT AUNG [place] (WNR) MEDICARE ADVANTAGE [employer] (WNR) Aug 03, 2017 [id number] [phone] FR RAE SEPULVEDA PATIENT Selected Encounter This section includes the information on record at [place] for the Encounter. Date/Time Encounter Type Encounter Description Reason Provider Source Jan 30, 2025 09:00 AM THERAPEUTIC EXERCISES PHYSICAL THERAPY ICD-10-CM Z47.1 Aftercare following joint replacement surgery ANA COLES [facility] Encounter Template Text not used by [place] Assessments - Encounter Diagnoses This section includes the primary and secondary diagnoses documented for the Encounter. Date/Time Primary/Secondary Diagnosis Diagnosis Name Provider Source Jan 30, 2025 12:37 PM PRIMARY Aftercare following joint replacement surgery JOSH COLES [facility] Plan of Treatment: Future Appointments (+ 6 months) and Future Tests (+/- 45 days) The Plan of Treatment section includes future care activities for the patient from all [place] [facility]. This section includes future appointments and future orders which are active, pending or scheduled. Future Appointments This section includes appointments that were scheduled to occur 6 months from the date of the Encounter, up to a maximum of 20 appointments. The data comes from all [place] treatment facilities. Appointment Date/Time Appointment Type Appointme nt Facility Name Feb 06, 2025 09:00 AM AMBULATORY - REHAB MEDICIN E [facility] Feb 06, 2025 09:30 AM AMBULATORY - MEDICINE [facility] Feb 13, 2025 10:30 AM AMBULATORY - MEDICINE [facility] Feb 15, 2025 09:00 AM AMBULATORY - REHAB MEDICIN [facility] Feb 20, 2025 09:00 AM AMBULATORY - REHAB MEDICIN [facility] Feb 23, 2025 10:00 AM AMBULATORY - SURGERY [facility] Feb 27, 2025 09:30 AM AMBULATORY - MEDICINE [facility] Mar 30, 2025 01:15 PM AMBULATORY - MEDICINE [facility] Apr 12, 2025 12:00 PM AMBULATORY - NONE [facility] May 01, 2025 09:30 AM AMBULATORY - SURGERY [facility] May 16, 2025 10:00 AM AMBULATORY - SURGERY [facility] May 16, 2025 11:00 AM AMBULATORY - REHAB MEDICIN E [facility] May 31, 2025 10:00 AM AMBULATORY - NONE [facility] Jun 28, 2025 09:00 AM AMBULATORY - SURGERY [facility] Active, Pending, and Scheduled Orders This section [...] ORT HO THERAPY EVAL OUTPT STL Cons Position Classification Specialist's [facility] Mar 11, 2025 09:03 PM Procedure Order CP EKG STL CP EKG - STL Proc [facility] Lab Results: +/- 30 days of the [...] Type Comment Feb 13, 2025 11:14 AM [facility] LDH PLASMA Specimen Type: PLASMA Comment: No hemolysis noted. Ordering Provider: KHOI GRIFFIN Report Released Date/Time: Jan 11, 2025 12:19 PM Reporting Lab: [facility] [address] [facility] [address] Performing Lab: [facility] [address] [facility] [address] LDH 325 U/L H 125-243 Feb 13, 2025 11:14 AM [facility] COMPREHENSIVE METABOLIC PANEL PLASMA Specimen Type: PLASMA Comment: No hemolysis noted. Ordering Provider: KHOI GRIFFIN Report Released Date/Time: Jan 11, 2025 12:19 PM Reporting Lab: [address] [address] Performing Lab: [address] [address] CREATININE 1.09 mg/dL 0.7-1.3 UREA NITROGEN 21.0 [...] 69.0 >60 Feb 13, 2025 11:14 AM [facility] CBC BLOOD Specimen Type: BLOOD No comment entered. Ordering Provider: KHOI GRIFFIN Report Released Date/Time: Jan 11, 2025 12:19 PM Reporting Lab: [address] [address] Performing Lab: [address] [address] WBC 7.3 10*3/uL 3.6-11.2 RBC 4.24 10*6/uL [...] 0.00-0. 20 Jan 10, 2025 09:22 AM [facility] LDH PLASMA Specimen Type: PLASM A Comment: No hemolysis noted. Ordering Provider: KHOI GRIFFIN Report Released Date/Time: Jan 11, 2024 01:34 PM Reporting Lab: [address] [address] Performing Lab: [address] [address] LDH 149 U/L 125-243 Jan 10, 2025 09:22 AM [facility] COMPREHENSIVE METABOLIC PANEL PLASMA Specimen Type: PLASMA Comment: No hemolysis noted. Ordering Provider: KHOI GRIFFIN Report Released Date/Time: Jan 11, 2024 01:34 PM Reporting Lab: [address] [address] Performing Lab: [address] [address] CREATININE 1.02 mg/dL 0.7-1.3 UREA NITROGEN 17.9 [...] 74.8 >60 Jan 10, 2025 09:22 AM [facility] CBC BLOOD Specimen Type: BLOOD No comment entered. Ordering Provider: KHOI GRIFFIN Report Released Date/Time: Jan 11, 2024 01:34 PM Reporting Lab: [facility] [address] [facility] [address] Performing Lab: [facility] [address] [facility] [address] WBC 6.4 10*3/uL 3.6-11.2 RBC 4.39 10*6/uL [...] and tobacco- related health factors from the [place] facility where the Encounter took place. Current Smoking Status This section includes the most current smoking, or tobacco-related health factor, from the [place] facility where the Encounter took place. Date/Time Current Smoking Status Comment Facil dana Aug 09, 2024 09:30 AM VA-TOBACCO USE FOR SARAI CIGARETTES [facility] Tobacco Use History This section includes a history of the smoking, or tobacco-related health factors, that were collected on or before the date of the Encounter. The data comes from the [place] facility where the Encounter took place. 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 No Report Status: Verified Date Reported: FEB 24, 2025 Date Verified: FEB 24, 2025 Pipeline Engineer E-Sig:/ES/GIANNA CLAY Report: EXAMINATION: KNEE,RIGHT 3 VIEWS, KNEE,LEFT 1 OR 2 VIEWS [id number] DATE: 02/23/2025 9:17 AM HISTORY: 4wk pov [...] knee. Primary Interpreting Staff: GIANNA CLAY, RADIOLOGIST (Pipeline Engineer) /GIANNA [facility] Encounter Notes: All associated encounter notes This section contains the clinical notes associated to the Encounter. Date/Time Encounter Note(s) Provider Source Jan 30, 2025 09:00 AM PHYSICAL MEDICINE REHAB NOTE: LOCAL TITLE: PT DAILY ST STANDARD TITLE: PHYSICAL MEDICINE REHAB NOTE DATE OF NOTE: JAN 30, 2025@09:00 ENTRY DATE: JAN 30, 2025@09:00:50 AUTHOR: TERRELL COLES COSIGNER: URGENCY: STATUS: COMPLETED PHYSICAL THERAPY DAILY NOTE Provisional dx: Z47.1 Start of Care: 12/19/24 Reevaluation due: POC through: Visits to date: 5 No shows/cancellations: 1 Treatment time: 2600-5677 Total: 30 mins. Therapeutic exercise: 30 mins. Manual therapy: min s/p R TKA 11/21/2024 Subjective: [place] reports stretches have been helping with stiffness and pain. Reports the L knee continues to hurt 2/2 chronic pain but R knee feels good --Pain Rating (0-10): Current: 0/10 Best: 0/10 [...] resistance level 2 -Leg press 2x10 at 140lbs BLE -RLE forward step-ups 6 step with BUE on rails for support x10 reps -RLE lateral step-ups and step-downs 4 step with BUE on rails, 2x10 reps -Side steps with green theraband around thighs with BUE on rails for balance, 4x8' left<>right in parallel bars -Seated RLE LAQ with 3# ankle weight, 2x15 reps Current HEP 1. Seated hamstring stretch [...] are in line with one another Assessment: demos R knee AROM WNL, some mild strength deficits present. Reviewed hip exercises and stretches to manage tightness in knee. Tolerated exercises this session with no adverse effects. Continue per PT POC. 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 /brianda/ TERRELL COLES PHYSICAL THERAPIST Signed: 01/30/2025 12:38 TERRELL COLES [facility]
--- OUTSIDE RECORDS SUMMARY | 2025-01-30 05:00 | XMS_ITS | Encounter Summary ---
Author Name [facility] Organization [facility] Address [address] [place] [address] Care Team Providers Care Law Enforcement Officer Name Role Phone KOLE GARY Primary [...] Wiseman AUNG [facility] (WNR) MEDICARE [facility] (WNR) Aug 03, 2017 [facility] ([facility]) [id number] [phone] [id number] FR RAE SEPULVEDA PATIENT [employer] [facility] (WNR) MEDICARE ADVANTAGE [facility] (WNR) December 01, 2022 [id number] [phone] [id number] FR RAE SEPULVEDA PATIENT [employer] [facility] (WNR) MEDICARE ADVANTAGE [facility] (WNR) December 01, 2022 [id number] [phone] [id number] FR COCO ANK PATIENT [employer] [facility] (WNR) MEDICARE ADVANTAGE [facility] ( WNR) December 01, 2022 [id number] [phone] 2 FR RAE SEPULVEDA PATIENT [employer] [facility] (WNR) MEDICARE ADVANTAGE [facility] (WNR) Aug 03, 2021 [id number] [phone] FR RAE SEPULVEDA PATIENT [employer] [facility] (WNR) MEDICARE ADVANTAGE [facility] (WNR) Aug 03, 2017 [id number] [phone] FR COCO ANK PATIENT [employer] [facility] (WNR) MEDICARE ADVANTAGE [facility] (WNR) Aug 03, 2017 [id number] [phone] FR RAE SEPULVEDA PATIENT Selected Encounter This section includes the information on record at MD for the Encounter. Date/Time Encounter Type Encounter Description Reason Provider Source Jan 30, 2025 10:00 AM OFFICE O/P EST MOD 30 MIN OPTOMETRY ICD-10-CM H25.813 Combined forms of age-related cataract, bilateral ABELARDO GUERRERO [facility] Encounter Template Text not used by MD Assessments - Encounter Diagnoses This section includes the primary and secondary diagnoses documented for the Encounter. Date/Time Primary/Secondary Diagnosis Diagnosis Name Provider Source Jan 30, 2025 11:23 AM PRIMARY Combined forms of age-related cataract, bilateral ABELARDO GUERRERO [facility] Jan 30, 2025 11:23 AM SECONDARY Glare sensitivity ABELARDO GUERRERO [facility] Jan 30, 2025 11:23 AM SECONDARY Presbyopia ABELARDO GUERRERO [facility] Plan of Treatment: Future Appointments (+ 6 months) and Future Tests (+/- 45 days) The Plan of Treatment section includes future care activities for the patient from all MD treatmentfacilities. This section includes future appointments and future orders which are active, pending or scheduled. Future Appointments This section includes appointments that were scheduled to occur 6 months from the date of the Encounter, up to a maximum of 20 appointments. The data comes from all MD treatment facilities. Appointment Date/Time Appointment Type Appointme nt Facility Name Feb 06, 2025 09:00 AM AMBULATORY - REHAB [facility] Feb 06, 2025 09:30 AM AMBULATORY - MEDICINE [facility] Feb 13, 2025 10:30 AM AMBULATORY - MEDICINE [facility] Feb 15, 2025 09:00 AM AMBULATORY - REHAB [facility] Feb 20, 2025 09:00 AM AMBULATORY - REHAB MEDICIN E [facility] Feb 23, 2025 10:00 AM AMBULATORY - SURGERY [facility] Feb 27, 2025 09:30 AM AMBULATORY - MEDICINE [facility] Mar 30, 2025 01:15 PM AMBULATORY - MEDICINE [facility] Apr 12, 2025 12:00 PM AMBULATORY - NONE [facility] May 01, 2025 09:30 AM AMBULATORY - SURGERY [facility] May 16, 2025 10:00 AM AMBULATORY - SURGERY [facility] May 16, 2025 11:00 [facility] May 31, 2025 10:00 AM AMBULATORY - NONE [facility] Jun 28, 2025 09:00 AM AMBULATORY - SURGERY [facility] Active, Pending, and Scheduled Orders This section includes a listing of several types of active, pending, and scheduled orders, including clinic medications orders, diagnostic test orders, procedure orders and consult orders; where the start date of the order is 45 days before the date of the Encounter or 45 days after the date of theEncounter. The data comes from all MD treatment facilities. Test Date/Time Test Type Test Details Facility Name Mar 11, 2025 09:03 PM Consult Order PRE OP ORT HO THERAPY EVAL OUTPT STL Cons [facility] Mar 11, 2025 09:03 PM Procedure Order CP EKG STL CP EKG - STL Proc [facility] Lab Results: +/- 30 days of [...] Type Comment Feb 13, 2025 11:14 AM [facility] LDH PLASMA Specimen Type: PLASMA Comment: No hemolysis noted. Ordering Provider: KHOI GRIFFIN Report Released Date/Time: Jan 11, 2025 12:19 PM Reporting Lab: [facility] [address] [place] [id number] Performing Lab: [address] [address] LDH 325 U/L H 125-243 Feb 13, 2025 11:14 AM [facility] COMPREHENSIVE METABOLIC PANEL PLASMA Specimen Type: PLASMA Comment: No hemolysis noted. Ordering Provider: KHOI GRIFFIN Report Released Date/Time: Jan 11, 2025 12:19 PM Reporting Lab: [address] [address] Performing Lab: [address] [address] CREATININE 1.09 mg/dL 0.7-1.3 UREA NITROGEN 21.0 [...] >60 Feb 13, 2025 11:14 AM [facility] CBC BLOOD Specimen Type: BLOOD No comment entered. Ordering Provider: KHOI GRIFFIN Report Released Date/Time: Jan 11, 2025 12:19 PM Reporting Lab: [address] [address] Performing Lab: [address] [address] WBC 7.3 10*3/uL 3.6-11.2 RBC 4.24 10*6/uL [...] 20 Jan 10, 2025 09:22 AM [facility] LDH PLASMA Specimen Type: PLASM A Comment: No hemolysis noted. Ordering Provider: KHOI GRIFFIN Report Released Date/Time: Jan 11, 2024 01:34 PM Reporting Lab: [address] [address] Performing Lab: [address] [address] LDH 149 U/L 125-243 Jan 10, 2025 09:22 AM [facility] COMPREHENSIVE METABOLIC PANEL PLASMA Specimen Type: PLASMA Comment: No hemolysis noted. Ordering Provider: KHOI GRIFFIN Report Released Date/Time: Jan 11, 2024 01:34 PM Reporting Lab: [address] [address] Performing Lab: [address] [address] CREATININE 1.02 mg/dL 0.7-1.3 UREA NITROGEN 17.9 [...] 74.8 >60 Jan 10, 2025 09:22 AM [facility] CBC BLOOD Specimen Type: BLOOD No comment entered. Ordering Provider: KHOI GRIFFIN Report Released Date/Time: Jan 11, 2024 01:34 PM Reporting Lab: [facility] [address] [facility] [address] Performing Lab: [place] [id number] [facility] [address] WBC 6.4 10*3/uL 3.6-11.2 RBC 4.39 10*6/uL [...] and tobacco- related health factors from the MD facility where the Encounter took place. Current Smoking Status This section includes the most current smoking, or tobacco-related health factor, from the MD facility where the Encounter took place. Date/Time Current Smoking Status Comment Janet cortez Aug 09, 2024 09:30 AM VA-TOBACCO USE FOR SARAI CIGARETTES [facility] Tobacco Use History This section includes a history of the smoking, or tobacco-related health factors, that were collected on or before the date of the Encounter. The data comes from the MD facility where the Encounter took place. Date/Time Smoking Status/Tobacco Use Comment Patrick toribio Aug 09, 2024 09:30 AM VA-TOBACCO USE FOR SARAI CIGARETTES [facility] Advance Directives: All historical and current Section Date Range: From patient's date of to the date document was created. This section includes ALL of a patient's completed or amended VA Advance and Rescinded Directives. The entries below indicate that a directive exists for the patient, but an actual copy is not included with this document. The data comes from all MD facilities. Date Advance Directives Provider Source Jun 12, [address] [facility] December 24, 2011 ADVANCE DIRECTIVE DISCUSSION TOMMY VAZQUEZ [facility] Radiology Reports: +/- 30 days [...] the Encounter. The data comes from all MD treatment facilities. Date/Time Radiology Report Provider Source Feb 23, 2025 09:17 AM KNEE OA SERIES RIG HT 3 VWS>/=55: JOYCELYN SEPULVEDA [id number] -1945 M Exm Date: FEB 23, 2025@09:17 Req Phys: ELVI,PERFECTO W Pat Loc: [facility] [employer] SALES REPRESENTATIVE ELVI (Req'g Loc Img Loc: [facility]IOLOGY SUITE Service: [facility] [address] [place] [address] (Case [id number] COMPLETE) KNEE,RIGHT 3 VIEWS (RAD Detailed) CPT:56870 Proc Modifiers : BILAT AP & BILAT SUNRISE Reason for Study: 4wk pov RTKA(11/18/2024 DR VITAL) (Case [id number] COMPLETE) KNEE,LEFT 1 OR 2 VIEWS (RAD Detailed) CPT:04892 Proc Modifiers : BILAT AP & BILAT SUNRISE Clinical History: Do films need to be ortho templated printed? No Report Status: Verified Date Reported: FEB 24, 2025 Date Verified: FEB 24, 2025 [employer]ute [employer] E-Sig:/ES/GIANNA CLAY Report: EXAMINATION: KNEE,RIGHT 3 VIEWS, KNEE,LEFT 1 OR 2 VIEWS [id number] DATE: 02/23/2025 9:17 AM HISTORY: 4wk pov [...] knee. Primary Interpreting Staff: GIANNA CLAY, RADIOLOGIST (Saute [employer]) /GIANNA LITTLE [facility] Encounter Notes: All associated encounter notes This section contains the clinical notes associated to the Encounter. Date/Time Encounter Note(s) Provider Source Jan 30, 2025 09:45 AM OPTOMETRY NOTE: LOCAL TITLE: OPTOMETRY NOTE STANDARD TITLE: OPTOMETRY NOTE DATE OF NOTE: JAN 30, 2025@09:45 ENTRY DATE: JAN 30, 2025@09:45:57 AUTHOR: ABELARDO GUERRERO COSIGNER: URGENCY: STATUS: COMPLETED Last seen: 02/02/2025 Reason for visit: CEE CC: 1. Stable vision - Distance and near - OU - While wearing glasses full-time. - Constant. - Denies ocular irritation/pain, double vision, flashes/new floaters. Ocular meds: none Ocular ROS: (-) injuries (+) BCC excision LLL 2015 (-) glaucoma (-) macular degeneration (+) cataracts OU Family OcHX: (-) blindness (-) glaucoma (-) AMD (-) RD Cardiovascular ROS: no change from problem & medication lists CPRS Problem list, medications and allergies reviewed: [facility] Serology for Diabetes GLUCOSE 94 mg/dL 01/10/2025 09:22 HGA1C 5.9 % 10/27/2024 10:30 Cardiovascular BP: 107/63 (01/18/2025 10:39) Pulse: 72 (01/18/2025 10:39) Neuro: Orientation: Normal Psych: Mood/Affect: Normal Depression/suicide ideation: NO VISUAL ACUITY Distance Visual Acuity (x) cc, () sc OD: 20/30-2 slow OS: 20/30-2 slow Pupils ERRL, (-) APD OU Confrontation: FTFC OD/OS Extra-Ocular Muscles Full, (-) pain/DV OU Habitual 01/30/2025 (PAL from 02/23) OD: +1.50 -2.00 x 099 OS: +1.75 -2.00 x 078 ADD: +2.50 Refraction 01/30/2025 OD: +1.25 -1.50 x 093 20/25-2 slow OS: +1.50 -1.75 x 078 20/30 slow ADD: +2.50 SLIT LAMP EXAMINATION: L/L: MGD OU, surgical alteration of left temporal canthus Conj/Sclera: white/quiet, (-) papillae/follicles OU K: all layers clear OU AC: deep/quiet OU Angles: 2x3 VH OD, 3x2 VH OS Iris: Prominent nevus 7 o/c OD, unremarkable OS, (-) NVI OU Lens: OD: 2-3+ NSC, central vacuoles (ANT and POST) OS: 2-3+ NSC, few central POST vacuoles Intraocular Pressures (Goldmann) 1 gtt Altafluor/Benox OD/OS: Date OD OS Time Meds 01/28/2023 16 16 0950 none 02/03/2024 14 16 0957 none Extrusion Press Adjuster 01/30/2025 13 15 10:12 none Dilated c 1 gtts Tropicamide 1% and Phenylephrine 2.5% OU @ 10:12 Pt educated on temporary effects of dilation drops such as light sensitivity and blurry vision. 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 Refractive error/Presbyopia OU - BCVA 20/25-2 OD, 20/30 OS - Defer updating glasses d/t #2. - Continue with SRx from 01/24 at this time. 2. Combined Cataracts OU - Moderate visual significance. - d/w pt at end of exam that he's noted increased glare with night driving and increaed difficulty with seeing roadsigns clearly. - Pt motivated for pre-op for cataract surgery eval OU. 3. H/o of BCC of left lower eyelid (2015) - Post surgical changes of left lateral canthus - Looks otherwise unremarkable and stable today with no suspicious lesion of periocular tissue. - Pt has extensive skin Ca history, sees derm (last 12/25, next 03/27) - Monitor with yearly eye exam. FINAL SRx: OD: +1.25 -1.50 x 093 OS: +1.50 -1.75 x 078 ADD: +2.50 DISCUSSED ALL ABOVE FINDINGS W/PT; PT EXPRESSED FULL UNDERSTANDING. RTO [facility]-preop april-may 2025 (per pt preference) for CEIOL eval OU /es/ Abelardo Guerrero, OD Staff Physician, Optometry Signed: 01/30/2025 11:[address] [facility]
--- OUTSIDE RECORDS SUMMARY | 2025-02-06 04:00 | XMS_ITS | Encounter Summary ---
Author Name [facility] [place] [place] [facility] [place] Address [address] [place] [id number] Care Team Providers Care Waste Handling Technician Name Role Phone KOLE GARY Primary Care [...] Patient's Relationship to Policy Wiseman AUNG GOLD [facility] (WNR) MEDICARE ADVANTAGE [facility] (WNR) Aug 03, 2017 [facility] (WN) [id number] [phone] FR RAE SEPULVEDA PATIENT [employer] [facility] (WNR) MEDICARE ADVANTAGE MCR (WNR) December 01, 2022 [id number] [phone] FR RAE SEPULVEDA PATIENT [employer] [facility] (WNR) MEDICARE ADVANTAGE MCR (WNR) December 01, 2022 [id number] [phone] FR COCO ANK PATIENT [employer] [facility] (WNR) MEDICARE ADVANTAGE MCR ( WNR) December 01, 2022 [id number] [phone] FR RAE SEPULVEDA PATIENT [employer] [facility] (WNR) MEDICARE ADVANTAGE [facility] (WNR) Aug 03, 2021 [id number] [phone] [id number] FR RAE SEPULVEDA PATIENT [facility] [place] (WNR) MEDICARE ADVANTAGE [facility] (WNR) Aug 03, 2017 [id number] [phone] FR RAE SEPULVEDA PATIENT [facility] [place] (WNR) MEDICARE ADVANTAGE [facility] (WNR) Aug 03, 2017 [id number] [phone] FR RAE SEPULVEDA PATIENT Selected Encounter This section includes the information on record at [place] for the Encounter. Date/Time Encounter Type Encounter Description Reason Provider Source Feb 06, 2025 09:00 AM THERAPEUTIC EXERCISES PHYSICAL THERAPY ICD-10-CM Z47.1 Aftercare following joint replacement surgery ANA COLES [facility] Encounter Template Text not used by [place] Assessments - Encounter Diagnoses This section includes the primary and secondary diagnoses documented for the Encounter. Date/Time Primary/Secondary Diagnosis Diagnosis Name Provider Source Feb 06, 2025 10:31 AM PRIMARY Aftercare following joint replacement surgery JOSH COLES [facility] Plan of Treatment: Future Appointments (+ 6 months) and Future Tests (+/- 45 days) The Plan of Treatment section includes future care activities for the patient from all [place] treatmentfacilities. This section includes future appointments and future orders which are active, pending or scheduled. Future Appointments This section includes appointments that were scheduled to occur 6 months from the date of the Encounter, up to a maximum of 20 appointments. The data comes from all [place] treatment facilities. Appointment Date/Time Appointment Type Appointme nt Facility Name Feb 13, 2025 10:30 AM AMBULATORY - MEDICINE [facility] Feb 15, 2025 09:00 AM AMBULATORY - REHAB MEDICIN E [facility] Feb 20, 2025 09:00 AM AMBULATORY - REHAB MEDICIN E [facility] Feb 23, 2025 10:00 AM AMBULATORY - SURGERY [facility] Feb 27, 2025 09:30 AM AMBULATORY - MEDICINE [facility] Mar 30, 2025 01:15 PM AMBULATORY - MEDICINE [facility] Apr 12, 2025 12:00 PM AMBULATORY - NONE [facility] May 01, 2025 09:30 AM AMBULATORY - SURGERY [facility] May 16, 2025 10:00 AM AMBULATORY - SURGERY [facility] May 16, 2025 11:00 AM AMBULATORY - REHAB MEDIC[facility] E [facility] May 31, 2025 10:00 AM AMBULATORY - NONE [facility] Sanz [facility] Jun 28, 2025 09:00 AM AMBULATORY - SURGERY [facility] Ronny [facility] Active, Pending, and Scheduled Orders This section includes a listing of several types of active, pending, and scheduled orders, including clinic medications orders, diagnostic test orders, procedure orders and consult orders; where the start date of the order is 45 days before the date of the Encounter or 45 days after the date of theEncounter. The data comes from all [place] treatment facilities. Test Date/Time Test Type Test Details Facility Name Mar 11, 2025 09:03 PM Consult Order PRE OP ORT HO THERAPY EVAL [facility] Mar 11, 2025 09:03 PM Procedure Order CP EKG STL CP EKG - STL Proc [facility] Lab Results: +/- 30 days [...] Type Comment Feb 13, 2025 11:14 AM [facility] LDH PLASMA Specimen Type: PLASMA Comment: No hemolysis noted. Ordering Provider: KHOI GRIFFIN Report Released Date/Time: Jan 11, 2025 12:19 PM Reporting Lab: [facility] [address] [facility] [address] Performing Lab: [facility] [address] [facility] [address] LDH 325 U/L H 125-243 Feb 13, 2025 11:14 AM [facility] COMPREHENSIVE METABOLIC PANEL PLASMA Specimen Type: PLASMA Comment: No hemolysis noted. Ordering Provider: KHOI GRIFFIN Report Released Date/Time: Jan 11, 2025 12:19 PM Reporting Lab: [address] [address] Performing Lab: [address] [address] CREATININE 1.09 mg/dL 0.7-1.3 UREA NITROGEN 21.0 [...] 69.0 >60 Feb 13, 2025 11:14 AM [facility] CBC BLOOD Specimen Type: BLOOD No comment entered. Ordering Provider: KHOI GRIFFIN Report Released Date/Time: Jan 11, 2025 12:19 PM Reporting Lab: [address] [address] Performing Lab: [address] [address] WBC 7.3 10*3/uL 3.6-11.2 RBC 4.24 10*6/uL [...] 0.00-0. 20 Jan 10, 2025 09:22 AM [facility] LDH PLASMA Specimen Type: PLASM A Comment: No hemolysis noted. Ordering Provider: KHOI GRIFFIN Report Released Date/Time: Jan 11, 2024 01:34 PM Reporting Lab: [address] [address] Performing Lab: [address] [address] LDH 149 U/L 125-243 Jan 10, 2025 09:22 AM [facility] COMPREHENSIVE METABOLIC PANEL PLASMA Specimen Type: PLASMA Comment: No hemolysis noted. Ordering Provider: KHOI GRIFFIN Report Released Date/Time: Jan 11, 2024 01:34 PM Reporting Lab: [address] [address] Performing Lab: [address] [address] CREATININE 1.02 mg/dL 0.7-1.3 UREA NITROGEN 17.9 [...] 74.8 >60 Jan 10, 2025 09:22 AM [facility] CBC BLOOD Specimen Type: BLOOD No comment entered. Ordering Provider: KHOI GRIFFIN Report Released Date/Time: Jan 11, 2024 01:34 PM Reporting Lab: [facility] [address] [facility] [address] Performing Lab: [facility] [address] [facility] [address] WBC 6.4 10*3/uL 3.6-11.2 RBC 4.39 10*6/uL [...] and tobacco- related health factors from the [place] facility where the Encounter took place. Current Smoking Status This section includes the most current smoking, or tobacco-related health factor, from the [place] facility where the Encounter took place. Date/Time Current Smoking Status Comment Facil dana Aug 09, 2024 09:30 AM VA-TOBACCO USE FOR SARAI CIGARETTES [facility] Tobacco Use History This section includes a history of the smoking, or tobacco-related health factors, that were collected on or before the date of the Encounter. The data comes from the [place] facility where the Encounter took place. Date/Time Smoking Status/Tobacco Use Comment [facility] [place] Aug 09, 2024 09:30 AM [place]-TOBACCO USE FOR SARAI CIGARETTES [facility] Advance Directives: All historical and current Section Date Range: From patient's date of to the date document was created. This section includes ALL of a patient's completed or amended [place] Advance and Rescinded Directives. The entries below indicate that a directive exists for the patient, but an actual copy is not included with this document. The data comes from all [place] facilities. Date Advance Directives Provider Source Jun 12, 2016 [address] DIRECTIVE [address] [facility] December 24, 2011 ADVANCE DIRECTIVE DISCUSSION TOMMY VAZQUEZ [facility] Radiology Reports: +/- 30 days of the [...] the Encounter. The data comes from all [place] treatment facilities. 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 No Report Status: Verified Date Reported: FEB 24, 2025 Date Verified: FEB 24, 2025 Bench Assembler Electrical E-Sig:/ES/GIANNA CLAY Report: EXAMINATION: KNEE,RIGHT 3 VIEWS, KNEE,LEFT 1 OR 2 VIEWS [id number] DATE: 02/23/2025 9:17 AM HISTORY: 4wk pov [...] knee. Primary Interpreting Staff: GIANNA CLAY, RADIOLOGIST (Bench Assembler Electrical) /[facility] Encounter Notes: All associated encounter notes This section contains the clinical notes associated to the Encounter. Date/Time Encounter Note(s) Provider Source Feb 06, 2025 09:00 AM PHYSICAL MEDICINE REHAB NOTE: LOCAL TITLE: PT DAILY STL STANDARD TITLE: PHYSICAL MEDICINE REHAB NOTE DATE OF NOTE: FEB 06, 2025@09:00 ENTRY DATE: FEB 06, 2025@09:13:23 AUTHOR: TERRELL COLES COSIGNER: URGENCY: STATUS: COMPLETED PHYSICAL THERAPY DAILY NOTE Provisional dx: Z47.1 Start of Care: 12/19/24 Reevaluation due: POC through: Visits to date: 5 No shows/cancellations: 1 Treatment time: 8686-2045 Total: 30 mins. Therapeutic exercise: 30 mins. Manual therapy: min s/p R TKA 11/21/2024 Subjective: [place] reports stretches have been helping with stiffness [...] mod tightness mod tightness ITB Treatment provided: -Leg press 2x10 at 140lbs BLE -single leg press, RLE 2x10 reps 80# -RLE forward alternating step-ups 4 step with BUE on rails for support x10 reps -Supine bridges 3x10 reps, 2-3 sec hold -Supine R straight leg raise with 1# weight 2x10 reps -reviewed stretches, squats Current HEP 1. Seated hamstring stretch RLE, [...] AROM WNL, some mild strength deficits present. Tolerated progression in intensity for hip/knee strength exercises this session with no adverse effects. [...] AROM = 0-120 deg - GOAL MET rodent exterminator: (12 weeks) 1) Pt will demonstrate independence with final HEP x 1 2) Pt will verbalize pain at worst - D/C 3) Pt will demo R knee strength = 5/5 - PROGRESSING Equipment Pt Currently Has: TBD Plan: 1-2x/week for manual therapy, patient education, therapeutic exercise and activity, gait training, neuro reeducation and modalities PRN. I f this is the last PT visit then this documentation serves as the discharge note as well. /brianda/ TERRELL COLES PHYSICAL THERAPIST Signed: 02/06/2025 10:32 TERRELL COLES [facility]
--- OUTSIDE RECORDS SUMMARY | 2025-02-13 05:30 | XMS_ITS ---
Author Name [facility] [place] [facility] [place] Address [address] [place] [address] Care Team Providers Care Global Account Executive Name Role Phone KOLE GARY Primary Care [...] Name Patient's Relationship to Policy Wiseman [facility] (WNR) MEDICARE [facility] (WNR) Aug 03, 2017 [facility] ([employer] [facility]) [id number] [phone] FR RAE SEPULVEDA PATIENT HUMANA [facility] (WNR) MEDICARE ADVANTAGE [facility] (WNR) December 01, 2022 [id number] [phone] FR RAE SEPULVEDA PATIENT [employer]MANA [facility] (WNR) MEDICARE ADVANTAGE [facility] (WNR) December 01, 2022 [id number] [phone] FR COCO ANK PATIENT HUMANA [facility]CR (WNR) MEDICARE ADVANTAGE [facility] ( WNR) December 01, 2022 [id number] [phone] FR RAE SEPULVEDA PATIENT HUMANA [facility] (WNR) MEDICARE ADVANTAGE [facility] (WNR) Aug 03, 2021 [id number] [phone] FR COCO ANK PATIENT [employer]MANA [facility] (WNR) MEDICARE ADVANTAGE M[facility] (WNR) Aug 03, 2017 [id number] [phone] FR COCO ANK PATIENT [employer]MANA [facility] (WNR) MEDICARE ADVANTAGE MCR (WNR) Aug 03, 2017 [id number] [phone] FR RAE SEPULVEDA PATIENT Selected Encounter This section includes the information on record at [place] for the Encounter. Date/Time Encounter Type Encounter Description Reason Provider Source Feb 13, 2025 10:30 AM OFFICE O/P EST HI 40 MIN PRIMARY CARE/MEDICINE ICD-10-CM I10 Essential (primary) hypertension LA PEREZ Catrachito Encounter Template Text not used by [place] Assessments - Encounter Diagnoses This section includes the primary and secondary diagnoses documented for the Encounter. Date/Time Primary/Secondary Diagnosis Diagnosis Name Provider Source Feb 13, 2025 11:12 AM PRIMARY Essential (primary) hypertension PEYTON PEREZ [facility] Feb 13, 2025 11:12 AM SECONDARY Anxiety disorder, unspecified PEYTON PEREZ EN D [facility] Feb 13, 2025 11:12 AM SECONDARY Benign prostatic hyperplasia with lower urinary tract symp PEYTON PEREZ EN D [facility] Feb 13, 2025 11:12 AM SECONDARY Depression, unspecified PEYTON PEREZ EN D [facility] Feb 13, 2025 11:12 AM SECONDARY Encounter for immunization PEYTON PEREZ EN D [facility] Feb 13, 2025 11:12 AM SECONDARY Hyperlipidemia, unspecified PEYTON PEREZ EN D [facility] Feb 13, 2025 11:12 AM SECONDARY Hypo-osmolality and hyponatremia PEYTON PEREZ EN Pankaj [facility] Feb 13, 2025 11:12 AM SECONDARY Pain in left knee PEYTON PEREZ [facility] Feb 13, 2025 11:12 AM SECONDARY Pain in right knee PEYTON PEREZ EN D [facility] Feb 13, 2025 11:12 AM SECONDARY Personal history of other malignant neoplasm of skin PEYTON PEREZ [facility] Feb 13, 2025 11:12 AM SECONDARY Post-traumatic stress disorder, chronic PEYTON PEREZ [facility] Feb 13, 2025 11:12 AM SECONDARY Prsnl hx of TIA (TIA), and cereb infrc w/o resid deficits PEYTON PEREZ [facility] Feb 13, 2025 11:12 AM SECONDARY Reaction to severe stress, unspecified PEYTON PEREZ [facility] Feb 13, 2025 11:12 AM SECONDARY Sleep apnea, unspecified PEYTON PEREZ [facility] Feb 13, 2025 11:12 AM SECONDARY Unspecified B-cell lymphoma, unspecified site PEYTON PEREZ [facility] Plan of Treatment: Future Appointments (+ 6 months) and Future Tests (+/- 45 days) The Plan of Treatment section includes future care activities for the patient from all [place] [facility]. This section includes future appointments and future orders which are active, pending or scheduled. Future Appointments This section includes appointments that were scheduled to occur 6 months from the date of the Encounter, up to a maximum of 20 appointments. The data comes from all [place] treatment facilities. Appointment Date/Time Appointment Type Appointme nt Facility Name Feb 15, 2025 09:00 AM AMBULATORY - REHAB MEDICIN E [facility] Feb 20, 2025 09:00 AM AMBULATORY - REHAB MEDICIN E [facility] Feb 23, 2025 10:00 AM AMBULATORY - SURGERY . [facility] Feb 27, 2025 09:30 AM [facility]ULATORY [facility] MED[facility]INE [facility] Mar 30, 2025 01:15 PM AMBULATORY - MEDICINE [facility] Apr 12, 2025 12:00 PM AMBULATORY - NONE [facility] May 01, 2025 09:30 AM AMBULATORY - SURGERY . [facility] May 16, 2025 10:00 AM AMBULATORY - SURGERY [facility] May 16, 2025 11:00 AM AMBULATORY - REHAB MEDICIN E [facility] May 31, 2025 10:00 AM AMBULATORY - NONE [facility] San[facility] Jun 28, 2025 09:00 AM AMBULATORY - SURGERY [facility] Aug 15, 2025 11:00 AM AMBULATORY - MEDICINE [facility] Active, Pending, and Scheduled Orders This [...] data comes from all [place] treatment facilities. Test Date/Time Test Type Test Details Facility Name Mar 11, 2025 09:03 PM Consult Order PRE OP ORT HO THERAPY EVAL OUTPT STL Cons [facility] Mar 11, 2025 09:03 PM Procedure Order CP EKG STL CP EKG - STL Proc [facility] Lab Results: +/- 30 days of [...] Comment Feb 13, 2025 11:14 AM [facility] LDH PLASMA Specimen Type: PLASMA Comment: No hemolysis noted. Ordering Provider: KHOI GRIFFIN Report Released Date/Time: Jan 11, 2025 12:19 PM Reporting Lab: [facility] [address] [facility] [address] Performing Lab: [address] [address] LDH 325 U/L H 125-243 Feb 13, 2025 11:14 AM [facility] COMPREHENSIVE METABOLIC PANEL PLASMA Specimen Type: PLASMA Comment: No hemolysis noted. Ordering Provider: KHOI GRIFFIN Report Released Date/Time: Jan 11, 2025 12:19 PM Reporting Lab: [address] [address] Performing Lab: [address] [address] CREATININE 1.09 mg/dL 0.7-1.3 UREA NITROGEN 21.0 [...] 69.0 >60 Feb 13, 2025 11:14 AM [facility] CBC BLOOD Specimen Type: BLOOD No comment entered. Ordering Provider: KHOI GRIFFIN Report Released Date/Time: Jan 11, 2025 12:19 PM Reporting Lab: [address] [address] Performing Lab: [address] [address] WBC 7.3 10*3/uL 3.6-11.2 RBC 4.24 10*6/uL [...] Pain Height Weight Body Mass Index Source Feb 13, 2025 10:16 AM 97.9 F 73 /min 138/74 mm[Hg] 18 /min 97 % 0 69 in 202.4 lb 30 [facility] Immunizations: All administered on the encounter date This section contains immunizations associated to the Encounter. Immunization Series Date Issued Administered By Site Reaction Lot Number CVX Code Drug Pocket Setter Comment(s) Source TDAP Feb 13, 2025 PETRONA BRAUN RIGHT DELTO ID [id number] SANOFI PASTEUR Completed Series, ADMINISTERE D AT [facility] Social History: Smoking Status (Most current) and [...] Facil ity Jul 06, 2023 02:30 PM VA-TOBACCO FORMER USER [facility] Tobacco Use History This section includes a history of the smoking, or tobacco-related health factors, that were collected on or before the date of the Encounter. The data comes from the [place] facility where the Encounter took place. Date/Time Smoking Status/Tobacco Use Comment F acility Jul 06, 2023 02:30 PM [place]-TOBACCO QUIT 15 YRS OR MORE [facility] Jul 04, 2022 10:00 AM VA-TOBACCO FORMER USER [facility] Jul 04, 2022 10:00 AM [place]-TOBACCO QUIT 15 YRS OR MORE [facility] Advance Directives: All historical and current Section Date Range: From patient's date of to the date document was created. This section includes ALL of a patient's completed or amended [place] Advance and Rescinded Directives. The entries below indicate that a directive exists for the patient, but an actual copy is not included with this document. The data comes from all [place] facilities. Date Advance Directives Provider Source Jun 12, 2016 [address] [facility] [...] comes from all [place] treatment facilities. Date/Time Radiology Report Provider Source Feb 23, 2025 09:17 AM KNEE OA SERIES RIG HT 3 VWS>/=55: JOYCELYN SEPULVEDA [id number] -[id number] M Exm Date: FEB 23, 2025@09:17 Req Phys: PERFECTO BOLES Pat Loc: [facility]TH[facility] CHIEF DIGITAL OFFICER ELVI (Req'g Loc Img Loc: [facility] SUITE Service: [address] [address] (Case [id number] COMPLETE) KNEE,RIGHT 3 VIEWS (RAD Detailed) CPT:65742 Proc Modifiers : BILAT AP & BILAT SUNRISE Reason for Study: 4wk pov RTKA(11/18/2024 DR VITAL) (Case [id number] COMPLETE) KNEE,LEFT 1 OR 2 VIEWS (RAD Detailed) CPT:29607 Proc Modifiers : BILAT AP & BILAT SUNRISE Clinical History: Do films need to be ortho templated printed? No Report Status: Verified Date Reported: FEB 24, 2025 Date Verified: FEB 24, 2025 Rail Car Repairer E-Sig:/ES/GIANNA CLAY Report: EXAMINATION: KNEE,RIGHT 3 VIEWS, KNEE,LEFT 1 OR 2 VIEWS [id number] DATE: 02/23/2025 9:17 AM HISTORY: 4wk pov [...] knee. Primary Interpreting Staff: GIANNA CLAY, RADIOLOGIST (Rail Car Repairer) /GIANNA [facility] Encounter Notes: All associated encounter notes This section contains the clinical notes associated to the Encounter. Date/Time Encounter Note(s) Provider Source Feb 13, 2025 10:39 AM PRIMARY CARE NOTE: LOCAL TITLE: PRIMARY CARE PROVIDER ESTABLISHED VISIT ST STANDARD TITLE: PRIMARY CARE NOTE DATE OF NOTE: FEB 13, 2025@10:39 ENTRY DATE: FEB 13, 2025@10:40 AUTHOR: ALKA PEREZ EXP COSIGNER: URGENCY: STATUS: COMPLETED REASON FOR VISIT: Evaluation and management of chronic medical conditions CHIEF COMPLAINT: regular check up SUBJECTIVE HISTORY HPI: 79 y.o. WHITE MALE presents today for evaluation and management of chronic medical conditions. Patient has a current medical history as listed below. Pt's last VA PCP appt was on 08/15/24. Non-VA Providers: none #bilateral knee OA: s/p Right TKA 11/18/24. Planning for left knee but not yet scheduled. Doing well. In PT. -Managed by ortho #HTN, Chronic hyponatremia: Taking lisinopril 10mg (not 20mg as Rx'd) & HCTZ 25mg. He didn't know that lisinopril order was changed to 20mg in November so he's been cutting the tablet in half. Wants lisinopril 10mg as a whole tablet bc it's hard to cut in half even w/ tablet cutter. Stopped HCTZ 25mg prior to ortho surgery d/t hyponatremia, but then restarted after surgery. No AMS, confusion, n/v, weakness. States his Na has always been low. WHAT IS YOUR GOAL FOR TODAY? get a check up SOURCE(S) OF HISTORY: Patient [facility] records reviewed and summarized Outside records reviewed and summarized PAST MEDICAL HISTORY 1) HTN - Hypertension ([facility] [id number]) 2) Hyperlipidemia ([facility] [id number]) 3) Sleep apnoea comment: using bipap 4) H/O: Stroke ([facility] [id number]) comment: L footdrop; wears brace; L leg weaker than R comment: using straight or quad cane 5) B-cell lymphoma comment: followed by hematology 6) Anxiety ([facility] [id number]) 7) Depression ([facility] [id number]) 8) Chronic kidney disease 9) Pes planus 10) Chronic post-traumatic stress disorder 11) Exposure to potentially hazardous substance 12) History of malignant neoplasm of skin 13) Sensorineural hearing loss of bilateral ears 14) Bilateral subjective tinnitus of ears SOCIAL HISTORY: TOBACCO: former; quit 50 yrs ago <1ppd ALCOHOL: denies ILLICIT: denies ALLERGIES: Patient has answered NKA ALLERGY REVIEW: Allergy list reviewed and remains current. MEDICATIONS: Active and Recently Outpatient Medications (excluding Supplies): Active Outpatient Medications Status 1) AMOXICILLIN 500MG CAP TAKE FOUR CAPSULES BY MOUTH ONE-TIME ACTIVE ONE HOUR PRIOR TO PROCEDURE. FIVE DOSES IN BOTTLE Indication: PREDENTAL/PROCEDURE 2) BUPROPION HCL 300MG 24HR SA TAB TAKE ONE TABLET BY MOUTH ACTIVE (S) ONCE A DAY SWALLOW WHOLE - DO NOT CRUSH OR CHEW. Indication: FOR DEPRESSION 3) CYCLOBENZAPRINE HCL 10MG TAB TAKE ONE TABLET BY MOUTH THREE ACTIVE TIMES A DAY NEEDED MAY CAUSE DROWSINESS. DO NOT DRINK ALCOHOL WHILE TAKING THIS MEDICATION. Indication: FOR MUSCLE SPASM 4) DULOXETINE HCL 30MG EC CAP TAKE THREE CAPSULES BY MOUTH ONCE ACTIVE A DAY DO NOT ABRUPTLY DISCONTINUE MEDICATION. Indication: FOR DEPRESSION 5) FINASTERIDE 5MG TAB TAKE ONE TABLET BY MOUTH ONCE A DAY ACTIVE SWALLOW WHOLE, DO NOT CRUSH, SPLIT, OR CHEW. Indication: FOR BENIGN PROSTATIC HYPERPLASIA 6) HYDROCHLOROTHIAZIDE 25MG TAB TAKE ONE TABLET BY MOUTH ONCE A ACTIVE DAY Indication: FOR HIGH BLOOD PRESSURE 7) LIDOCAINE 5% PATCH APPLY 1 PATCH TO SKIN SITE ONCE A DAY ACTIVE APPLY PATCH TO KNEE(S) AND PRESS FIRMLY FOR 10-15 SECONDS. KEEP ON FOR 12 HOURS THEN REMOVE PATCH FOR 12 HOURS. Indication: FOR LOCAL ANESTHESIA 8) LISINOPRIL 20MG TAB TAKE ONE TABLET BY MOUTH ONCE A DAY ACTIVE Indication: FOR HIGH BLOOD PRESSURE 9) MELOXICAM 7.5MG TAB TAKE ONE TABLET BY MOUTH ONCE A DAY ACTIVE Indication: FOR OSTEOARTHRITIS 10) SODIUM FLUORIDE 1.1% TOOTHPASTE USE DIRECTED [...] TAKE ONE-HALF TABLET BY MOUTH AT ACTIVE (S) BEDTIME Indication: FOR SLEEP Inactive Outpatient Medications Status 1) CALCIUM 500MG (CA CARB-1.25GM) TAB TAKE TWO TABLETS BY MOUTH TWICE A DAY Indication: FOR CALCIUM SUPPLEMENTATION 2) ERGOCALCIF 1,250MCG (D2-50,000UNIT) CAP TAKE ONE CAPSULE BY MOUTH EVERY WEEK Indication: FOR VITAMIN D DEFICIENCY 15 Total Medications MEDICATION RECONCILIATION: Reviewed with patient. I have reviewed the patient's medication list with the patient and/or caregiver. Handwritten corrections, additions, and/or deletions were made to the list. Correct outpatient medication list was provided to the patient/caregiver. REVIEW OF SYSTEMS: General: Denies fever, chills, or unexplained weight loss or weight gain. Eyes, Ears, Nose, Throat: Denies visual changes, hearing loss, nasal drainage, or sore throat. Endo: Denies heat or cold intolerance, polydipsia, polyuria, or polyphagia. Cardiovascular: Denies chest pain, palpitations, or dizziness. Respiratory: Denies cough or shortness of breath. ABD/GI: Denies abd pain, nausea, vomiting, diarrhea, or constipation. Musculoskeletal/Extremities: +left knee pain. Denies edema. /PERFORMANCE ANALYST: Denies urinary urgency, increased frequency, dysuria, or hematuria. Psych: Denies depression, anxiety, insomnia, SI or HI. Neuro: Denies FRANKLIN, tremors, neuropathy, or seizures. Skin: Denies rashes, skin lesions. OBJECTIVE DATA PHYSICAL EXAMINATION: VITALS (most recent, as listed in the electronic record): Temperature: 97.9 F [36.6 C] (02/13/2025 10:16) BP: 138/74 (02/13/2025 10:16) Pulse: 73 (02/13/2025 10:16) Resp: 18 (02/13/2025 10:16) SpO2: 97% (02/13/2025 10:16) Pain: 0 (02/13/2025 10:16) Weight: Measurement DT WEIGHT LB(KG)[BMI] 02/13/2025 10:16 202.4(91.81)[30*] 01/18/2025 10:39 209.2(94.89)[31*] 01/10/2025 09:33 208.6(94.62)[31*] Gen: Clean & well groomed. No acute distress(NAD). HEENT: EOMI, PERRLA. TM pearly berrios. Neck: Supple, no lymphadenopathy, no thyroidmegaly, or carotid bruits Lungs: CTA. No accessory muscle use. Heart: RRR. S1S2. No murmur. 2+ pulses. Abdomen: Soft, non-tender, non-distended, +bowel sounds x4 quadrants. : Deferred Skin: Warm, dry, and intact. No rashes or skin lesions MSK/Ext: No edema, full ROM with muscle strength 5/5 in all extremities. Neuro: A+Ox4. Psych: Appropriate mood and affect. DATA REVIEW: HGA1C 5.9 % 10/27/2024 10:30 Lipid Panel: TRIGLYCERIDE 103 mg/dL 01/05/2024 11:40 CHOLESTEROL 155 mg/dL 01/05/2024 11:40 HDL(New) 52 mg/dL 01/05/2024 11:40 CALCULATED LDL 82 mg/dL 01/05/2024 11:40 ======== CMP: SODIUM 127 L mEq/L 01/10/2025 09:22 POTASSIUM 4.5 mEq/L 01/10/2025 09:22 CHLORIDE 91 L mEq/L 01/10/2025 09:22 UREA NITROGEN 17.9 mg/dL 01/10/2025 09:22 CREATININE 1.02 mg/dL 01/10/2025 09:22 CALCIUM 9.7 mg/dL 01/10/2025 09:22 PROTEIN 7.1 g/dL 01/10/2025 09:22 ALBUMIN 4.1 g/dL 01/10/2025 09:22 ALKALINE PHOSPHATASE 92 U/L 01/10/2025 09:22 ALT/SGPT 26 U/L 01/10/2025 09:22 AST/SGOT 34 U/L 01/10/2025 09:22 TOTAL BILIRUBIN 0.6 mg/dL 01/10/2025 09:22 CARBON DIOXIDE 28 mEq/L 01/10/2025 09:22 GLUCOSE 94 mg/dL 01/10/2025 09:22 EGFR (CKD-EPI 2020) 74.8 01/10/2025 09:22 ========= CBC: WBC 6.4 10*3/uL 01/10/2025 09:22 RBC [...] 09:22 BASOPHILS, ABSOLUTE 0.05 10*3/uL 01/10/2025 09:22 PSA: No PSA EO data found Result: Acceptable Follow-up Action: Re check prior to next visit. Data results reviewed with patient and/or caregiver. ASSESSMENT/PLAN: #Hx of CVA: stable, controlled. hx of CVA with residual left sided weakness. Uses quad cane for ambulation. No recent falls. -No acute complaints or concerns -Cont. current treatment -Reviewed s/sx of CVA. ER precautions advised #HTN, Chronic hyponatremia: controlled; BP goal <130/80. Taking lisinopril 10mg (not 20mg as Rx'd) & HCTZ 25mg. Wants lisinopril 10mg as a whole tablet. Stopped HCTZ 25mg prior to ortho surgery d/t hyponatremia, but then restarted after surgery. No AMS, confusion, n/v, weakness. Chronic hyponatremia. Given good BP control and hyponatremia, will request pharm send lisinopril 10mg as whole tablet and continue HCTZ 25mg daily for now. -Cont. lisinopril 10mg daily -Cont. HCTZ 25mg daily -Check BMP -Reviewed s/e of hyponatremia an when to go to ER -Encouraged pt to monitor home BP 1-2hrs after taking meds -Notify PCP clinic if BP consistently above goal -Pt edu on low Na diet <2g/day, exercise, & wt mgt #HLD: fair control; LDL goal <70 CALCULATED LDL 82 mg/dL 01/05/2024 11:40 -Cont. current tx -Pt edu on lifestyle mods- optimize diet, exercise, and wt mgt #right knee pain/OA: s/p right TKA #left knee pain/OA: ortho planning on left knee surgery after fully recovered from right TKA. Maybe in the fall. Right knee doing well. In PT. No complaints. -Cont. current treatment -Managed by ortho #ALBARO: controlled -wears CPAP nightly -encouraged to use CPAP nightly -pt edu on risks associated w/ uncontrolled ALBARO (ex: CVD events, IL, CVA) #B cell lymphona: stable -Managed by heme/onc #NMSC: hx of several skin CA over the years -Cont. current management -Managed by derm q3mo #PTSD, depression, anxiety: controlled. Denies SI/HI -Cont. current treatment -Managed by MH #BPH: stable, controlled LUTS -cont. tamsulosin, finasteride -pt edu: behavioral management (limit fluids before bed, bladder training) HEALTH MAINTENANCE: -CRC Screening: aged out -LDCT: not indicated -AAA: not indicated -PSA: not indicated Immunization Series Date Facility Reaction Info COVID-19 (MODERNA), MRNA, LNP-S,* 1 07/06/2023 [facility]* COVID-19 (PFIZER), MRNA, LNP-S, * 06/27/2024 [facility]* INFLUENZA, HIGH-DOSE, TRIVALENT,* 06/27/2024 [facility]* -Tdap given in clinic Labs: BMP RETURN TO CLINIC: 6 mo Time spent on date of visit including face to face time, data review, and chartin minutes CLINICAL REMINDERS COMPLETED Future Appointments: 02/15/25 9:00 am [facility]PHYSICAL THERAPY 02/20/25 9:00 am [facility]PHYSICAL THERAP[facility] 02/20/25 9:30 am [facility] [phone] 02/21/25 1:00 pm [facility] SLEEP CHIEF DIGITAL OFFICER 02/23/25 10:00 am [facility]-ORTHO RECONSTRUCTION [phone] 02/27/25 9:30 am [facility] [phone] 03/30/25 1:15 pm [facility]-DERM MD [phone] 04/12/25 12:00 pm [facility]-DENTAL HYG 05/01/25 9:30 am [facility]-OPHTH PREOP 01/09/26 9:00 am [facility]-ONCOLOGY GABY [phone] SUMMARY STATEMENT: Plan of care has been discussed with including expected therapeutic benefits and potential side effects of prescribed medication and treatments. verbalizes understanding and is in agreement with the plan of care. Patient was instructed to keep all scheduled appointments and contact assistant maintenance manager for any additional problems. Tdap Immunization - L,N,P,PH,U: See orders Frail/Elderly Screen: Incontinence Screen: No incontinence. /brianda/ ATA CUELLOC, ALFREDO-BC Nurse Practitioner Signed: 02/13/2025 11:16 ALKA PEREZ [facility] Feb 13, 2025 10:22 AM NURSING NOTE: LOCAL TITLE: V15 PACT FACE TO FACE NOTE STL STANDARD TITLE: NURSING NOTE DATE OF NOTE: FEB 13, 2025@10:22 ENTRY DATE: FEB 13, 2025@10:22:24 AUTHOR: LOCO BRAUN COSIGNER: URGENCY: STATUS: COMPLETED V15 PACT FACE TO FACE NOTE STL Has ADDENDA Provider Visit: Patient Identifiers : Full Name Date of Reason for visit: Established Follow-Up Mode of Arrival: Assistive Device: cane Allergy Review: ALLERGIES/ADVERSE REACTIONS - NONE FOUND Allergy list reviewed and remains current. Recent Vital Signs: Temperature: 97.9 F [36.6 C] (02/13/2025 10:16) Pulse: 73 (02/13/2025 10:16) Respiration: 18 (02/13/2025 10:16) B/P: 138/74 (02/13/2025 10:16) Pain: 0 (02/13/2025 10:16) Wt: 202.4 lb [91.81 kg] (02/13/2025 10:16) Ht: 69 in [175.3 cm] (02/13/2025 10:16) BMI: 30.0 POX: 97% (02/13/2025 10:16) PERSONAL HEALTH INVENTORY Notes: No data available for PHI note titles PERSONAL HEALTH INVENTORY - MAP: 08/15/2024 Personal Health Plan [place], [place], Purpose (MAP) health Would you like to discuss any personal problem, family problem, alcohol use, drug use, or a mental or emotional illness? No Contact provided Primary Care phone number and encouraged to call if any questions or concerns. Review that after hours nurse line [phone] and emergency room are available 23/02 for patient use. Contact verbalized good understanding. COVID-19 Immunization-L,N,P,PH,U: Refused Pfizer Monovalent COVID-19 vaccine Immunization: COVID-19 (PFIZER), MRNA, LNP-S, PF, CLIFF-SUCROSE, 30 MCG/0.3 ML (AGES 12+ YEARS) Refusal Reason: PATIENT DECISION Patient refuses all immunization(s) in the COVID-19 group Date Documented: 02/13/25 10:24 Herpes Zoster (Shingles) Vaccine - L,N,P,PH,U: The patient declines to receive the recommended dose of zoster (shingles) vaccine. Immunization: ZOSTER RECOMBINANT Refusal Reason: PATIENT DECISION Patient refuses all immunization(s) in the ZOSTER group Date Documented: 02/13/25 10:25 Pneumococcal Conjugate Vaccine (PCV15/PCV20/PCV21) - L,N,P,PH,U: Refuses PCV vaccine Immunization: PNEUMOCOCCAL CONJUGATE, UNSPECIFIED FORMULATION Refusal Reason: PATIENT DECISION Patient refuses all immunization(s) in the PneumoPCV group Date Documented: 02/13/25 10:25 /brianda/ LOCO BRAUN LPN LICENSED PRACTIAL NURSE Signed: 02/13/2025 10:39 02/13/2025 ADDENDUM STATUS: COMPLETED Tdap Immunization - L,N,P,PH,U: Administered: TDAP Date Administered: Feb 13, 2025 10:30 Series: Complete Pocket Setter: [employer] PASTEUR Lot: [id number] Exp Date: Jun 02, 2026 [facility]: [id number] Admin Route/Site: INTRAMUSCULAR/RIGHT DELTOID Dosage: 0.5mL Vaccine Information Statement(s): TDAP (TETANUS, DIPHTHERIA, PERTUSSIS) VACCINE VIS Sep 02, 2024 (LAO) Order By: Alka Perez Administered By: Loco Braun The TETANUS/DIPHTHERIA/PERTUSSIS (TDAP) Vaccine Information Statement (VIS) was reviewed with the patient/caregiver which lists the benefits and risks of the vaccine and the risks of not receiving the Tdap vaccine. The patient/caregiver denied any prior severe reaction to this vaccine or its components or a severe allergic reaction, such as anaphylaxis, to any vaccine or any injectable therapy. The patient/caregiver gave verbal consent to receive the vaccine. /brianda/ LOCO BRAUN LPN LICENSED PRACTIAL NURSE Signed: 02/13/2025 10:44 LOCO [facility]
--- OUTSIDE RECORDS SUMMARY | 2025-02-15 04:00 | XMS_ITS | Encounter Summary ---
Author Name Department [place] Organization [place] Address [address] [place] [address] Care Team Providers Care Carry Out Clerk And Shelf Stocker Name Role Phone KOLE GARY Primary Care [...] Patient's Relationship to Policy Wiseman AUNG GOLD [facility] (WNR) MEDICARE ADVANTAGE [facility] (WNR) Aug 03, 2017 [facility] (WN) [id number] [phone] [id number] FR RAE SEPULVEDA PATIENT [employer] MCR (WNR) MEDICARE ADVANTAGE MCR (WNR) December 01, 2022 [id number] [phone] [id number] FR RAE SEPULVEDA PATIENT [employer] MCR (WNR) MEDICARE ADVANTAGE MCR (WNR) December 01, 2022 [id number] [phone] [id number] FR COCO ANK PATIENT [employer] MCR (WNR) MEDICARE ADVANTAGE MCR ( WNR) December 01, 2022 [id number] [phone] 2 FR RAE SEPULVEDA PATIENT [employer] MCR (WNR) MEDICARE ADVANTAGE [facility] (WNR) Aug 03, 2021 [id number] [phone] [id number] FR RAE SEPULVEDA PATIENT AUNG [place] (WNR) MEDICARE ADVANTAGE [facility] (WNR) Aug 03, 2017 [id number] [phone] FR RAE SEPULVEDA PATIENT AUNG [place] (WNR) MEDICARE ADVANTAGE [facility] (WNR) Aug 03, 2017 [id number] [phone] FR RAE SEPULVEDA PATIENT Selected Encounter This section includes the information on record at [place] for the Encounter. Date/Time Encounter Type Encounter Description Reason Provider Source Feb 15, 2025 09:00 AM THERAPEUTIC EXERCISES PHYSICAL THERAPY ICD-10-CM Z47.1 Aftercare following joint replacement surgery ANA COLES [facility] Encounter Template Text not used by [place] Assessments - Encounter Diagnoses This section includes the primary and secondary diagnoses documented for the Encounter. Date/Time Primary/Secondary Diagnosis Diagnosis Name Provider Source Feb 15, 2025 09:28 AM PRIMARY Aftercare following joint replacement surgery JOSH COLES [facility] Plan of Treatment: Future Appointments (+ 6 months) and Future Tests (+/- 45 days) The Plan of Treatment section includes future care activities for the patient from all [place] treatmentfaquorum healthities. This section includes future appointments and future orders which are active, pending or scheduled. Future Appointments This section includes appointments that were scheduled to occur 6 months from the date of the Encounter, up to a maximum of 20 appointments. The data comes from all [place] treatment facilities. Appointment Date/Time Appointment Type Appointme nt Facility Name Feb 20, 2025 09:00 AM AMBULATORY - REHAB MEDICIN E . [facility] Feb 23, 2025 10:00 AM AMBULATORY - SURGERY [facility] Feb 27, 2025 09:30 AM AMBULATORY - MEDICINE [facility] Mar 30, 2025 01:15 PM AMBULATORY - MEDICINE [facility] Apr 12, 2025 12:00 PM [facility] May 01, 2025 09:30 AM AMBULATORY - SURGERY [facility] May 16, 2025 10:00 AM AMBULATORY - SUR[facility]ERY [facility] May 16, 2025 11:00 AM AMBULATORY - [facility] May 31, 2025 10:00 AM AMBULATORY - NONE [facility] Jun 28, 2025 09:00 AM AMBULATORY - SURGERY [facility] Aug 15, 2025 11:00 AM AMBULATORY - MEDICINE [facility] Active, Pending, and Scheduled Orders This section includes a listing of several types of active, pending, and scheduled orders, including clinic medications orders, diagnostic test orders, procedure orders and consult orders; where the start date of the order is 45 days before the date of the Encounter or 45 days after the date of theEncounter. The data comes from all [place] treatment facilities. Test Date/Time Test Type Test Details Facility Name Mar 11, 2025 09:03 PM Consult Order PRE OP ORT HO THERAPY EVAL OUTPT STL Cons [facility] Mar 11, 2025 09:03 PM Procedure Order CP EKG STL CP EKG - STL Proc [facility] Lab Results: +/- 30 days of the encounter This section includes the Chemistry and Hematology Lab Results on record with [place] for the patient. Radiology Reports and Pathology Reports are provided separately, in subsequent sections. Lab Results This section contains the Chemistry/Hematology Results that were resulted 30 days before or 30 daysafter the date of the Encounter. Date/Time Source Result Type Result - Unit Interpretation Reference Range Specimen Type Comment Feb 13, 2025 11:14 AM [facility] LDH PLASMA Specimen Type: PLASMA Comment: No hemolysis noted. Ordering Provider: KHOI GRIFFIN Report Released Date/Time: Jan 11, 2025 12:19 PM Reporting Lab: [facility] [address] [place] [address] Performing Lab: [facility] [address] [facility] [address] LDH 325 U/L H [id number] Feb 13, 2025 11:14 AM [facility] COMPREHENSIVE METABOLIC PANEL PLASMA Specimen Type: PLASMA Comment: No hemolysis noted. Ordering Provider: KHOI GRIFFIN Report Released Date/Time: Jan 11, 2025 12:19 PM Reporting Lab: [address] [address] Performing Lab: [address] [address] CREATININE 1.09 mg/dL 0.7-1.3 UREA NITROGEN 21.0 [...] 69.0 >60 Feb 13, 2025 11:14 AM [facility] CBC BLOOD Specimen Type: BLOOD No comment entered. Ordering Provider: KHOI GRIFFIN Report Released Date/Time: Jan 11, 2025 12:19 PM Reporting Lab: [address] [address] Performing Lab: [address] [address] WBC 7.3 10*3/uL 3.6-11.2 RBC 4.24 10*6/uL [...] and tobacco- related health factors from the [place] facility where the Encounter took place. Current Smoking Status This section includes the most current smoking, or tobacco-related health factor, from the [place] facility where the Encounter took place. Date/Time Current Smoking Status Comment Facil ity Aug 09, 2024 09:30 AM VA-TOBACCO USE FOR [facility] Tobacco Use History This section includes a history of the smoking, or tobacco-related health factors, that were collected on or before the date of the Encounter. The data comes from the [place] facility where the Encounter took place. Date/Time Smoking Status/Tobacco Use Comment [facility] [place] Aug 09, 2024 09:30 AM VA-TOBACCO USE FOR [facility] Advance Directives: All historical and current Section Date Range: From patient's date of to the date document was created. This section includes ALL of a patient's completed or amended [place] Advance and Rescinded Directives. The entries below indicate that a directive exists for the patient, but an actual copy is not included with this document. The data comes from all [facility]. Date Advance Directives Provider Source Jun 12, 2016 ADVANCE DIRECTIVE [facility] December 24, 2011 ADVANCE DIRECTIVE DISCUSSION [facility] Radiology Reports: +/- 30 days of the [...] the Encounter. The data comes from all [place] treatment facilities. Date/Time Radiology Report Provider Source Feb 23, 2025 09:17 AM KNEE OA SERIES RIG HT 3 VWS>/=55: JOYCELYN SEPULVEDA [id number] -1945 M Exm Date: FEB 23, 2025@09:17 Req Phys: WEH,PERFECTO W Pat Loc: [facility] IN CLASSROOM TUTOR ELVI (Req'g Loc Img Loc: [facility] SUITE Service: Unknown [facility] [address] [place] [address] (Case [id number] COMPLETE) KNEE,RIGHT 3 VIEWS (RAD Detailed) CPT:26348 Proc Modifiers : BILAT AP & BILAT SUNRISE Reason for Study: 4wk pov RTKA(11/18/2024 DR VITAL) (Case [id number] COMPLETE) KNEE,LEFT 1 OR 2 VIEWS (RAD Detailed) CPT:87588 Proc Modifiers : BILAT AP & BILAT SUNRISE Clinical History: Do films need to be ortho templated printed? No Report Status: Verified Date Reported: FEB 24, 2025 Date Verified: FEB 24, 2025 [employer] E-Sig:/ES/GIANNA CLAY Report: EXAMINATION: KNEE,RIGHT 3 VIEWS, KNEE,LEFT 1 OR 2 VIEWS [id number] DATE: 02/23/2025 9:17 AM HISTORY: 4wk pov RTKA(11/18/2024 DR VITAL). COMPARISON: Right knee November 2024. VIEWS:5 FINDINGS:Stable right knee arthroplasty with no delayed complication. No fracture, subluxation or dislocation. No focal destructive process. Degenerative changes left knee. Impression: 1. Stable right knee arthroplasty with no delayed complication, acute injury or focal destructive process. 2. Degenerative changes left knee. Primary Interpreting Staff: GIANNA CLAY RADIOLOGIST ([employer]) /[facility]NA [facility] Encounter Notes: All associated encounter notes This section contains the clinical notes associated to the Encounter. Date/Time Encounter Note(s) Provider Source Feb 15, 2025 09:02 AM PHYSICAL MEDICINE REHAB NOTE: LOCAL TITLE: PT DAILY STL STANDARD TITLE: PHYSICAL MEDICINE REHAB NOTE DATE OF NOTE: FEB 15, 2025@09:02 ENTRY DATE: FEB 15, 2025@09:02:23 AUTHOR: TERRELL COLES COSIGNER: URGENCY: STATUS: COMPLETED PHYSICAL THERAPY DAILY NOTE Provisional dx: Z47.1 Start of Care: 12/19/24 Reevaluation due: POC through: Visits to date: 6 No shows/cancellations: 1 Treatment time: 0326-6020 Total: 30 mins. Therapeutic exercise: 30 mins. Manual therapy: min s/p R TKA 11/21/2024 Subjective: [place] reports overall R knee feels wonderful, has no pain and his recovery since TKA has helped his balance tremendously. Also rports L knee has been feeling a little better as well. --Pain Rating (0-10): Current: 0/10 Best: 0/10 [...] mod tightness mod tightness ITB Treatment provided: -HELD upright bike, patient reports performed bike at home prior to PT session to address knee stiffness -Leg press 2x10 at 160lbs BLE -single leg press, RLE 2x10 reps 100# -RLE forward step-ups 6 step with BUE on rails for support 2x10 reps -Side steps with red theraband around ankles, BUE on rails for balance -Sit<>stand from elevated therapy mat no UE support, cues to slowly control descent -Reviewed stretches with strap Current HEP 1. Seated hamstring stretch RLE, [...] are in line with one another Assessment: [place] demos R knee AROM WNL, Strength WFL. Anticipate D/C next session. Patient independent with HEP and overall tolerating therapeutic activities well. Offered 2x/week, however due to drive time [...] AROM = 0-120 deg - GOAL MET extermination supervisor: (12 weeks) 1) Pt will demonstrate independence [...] well. /brianda/ TERRELL COLES PHYSICAL THERAPIST Signed: 02/15/2025 09:30 TERRELL COLES [facility]
--- OUTSIDE RECORDS SUMMARY | 2025-02-20 04:00 | XMS_ITS | Encounter Summary ---
Author Name Department of Vetera Affairs ([place]) Organization Department of [place] Address [address] [place] [address] Care Team Providers Care Clothing Presser Name Role Phone KOLE GARY Primary Care [...] Patient's Relationship to Policy Wiseman AUNG GOLD [facility] (WNR) MEDICARE ADVANTAGE [facility] (WNR) Aug 03, 2017 [facility] (WN) [id number] [phone] FR RAE SEPULVEDA PATIENT [employer] MCR (WNR) MEDICARE ADVANTAGE MCR (WNR) December 01, 2022 [id number] [phone] [id number] FR RAE SEPULVEDA PATIENT [employer] MCR (WNR) MEDICARE ADVANTAGE MCR (WNR) December 01, 2022 [id number] [phone] [id number] FR COCO ANK PATIENT [employer] MCR (WNR) MEDICARE ADVANTAGE MCR ( WNR) December 01, 2022 [id number] [phone] 2 FR RAE SEPULVEDA PATIENT [employer] MCR (WNR) MEDICARE ADVANTAGE [facility] (WNR) Aug 03, 2021 [id number] [phone] [id number] FR RAE SEPULVEDA PATIENT [facility] (WNR) MEDICARE ADVANTAGE [facility] (WNR) Aug 03, 2017 [id number] [phone] FR RAE SEPULVEDA PATIENT AUNG [facility] (WNR) MEDICARE ADVANTAGE [facility] (WNR) Aug 03, 2017 [id number] [phone] FR RAE SEPULVEDA PATIENT Selected Encounter This section includes the information on record at [place] for the Encounter. Date/Time Encounter Type Encounter Description Reason Provider Source Feb 20, 2025 09:00 AM THERAPEUTIC EXERCISES PHYSICAL THERAPY ICD-10-CM Z47.1 Aftercare following joint replacement surgery ANA COLES [facility] Encounter Template Text not used by [place] Assessments - Encounter Diagnoses This section includes the primary and secondary diagnoses documented for the Encounter. Date/Time Primary/Secondary Diagnosis Diagnosis Name Provider Source Feb 20, 2025 01:06 PM PRIMARY Aftercare following joint replacement surgery JOSH COLES [facility] Plan of Treatment: Future Appointments (+ 6 months) and Future Tests (+/- 45 days) The Plan of Treatment section includes future care activities for the patient from all [place] treatmentfacilities. This section includes future appointments and future orders which are active, pending or scheduled. Future Appointments This section includes appointments that were scheduled to occur 6 months from the date of the Encounter, up to a maximum of 20 appointments. The data comes from all [place] treatment facilities. Appointment Date/Time Appointment Type Appointme nt Facility Name Feb 23, 2025 10:00 AM AMBULATORY - SURGERY [facility] Feb 27, 2025 09:30 AM AMBULATORY - MEDICINE [facility] Mar 30, 2025 01:15 PM AMBULATORY - MEDICINE [facility] Apr 12, 2025 12:00 PM AMBULATORY - NONE [facility] May 01, 2025 09:30 AM AMBULATORY - SUR[facility]ERY [facility] May 16, 2025 10:00 AM AMBULATORY - SUR[facility]ERY [facility] May 16, 2025 11:00 AM AMBULATORY - REHAB MEDICIN E [facility] May 31, 2025 10:00 AM AMBULATORY - NONE [facility] Jun 28, 2025 09:00 AM AMBULATORY - SURGERY . Ronny KUMAR [facility] Aug 15, 2025 11:00 AM AMBULATORY - [facility] Active, Pending, and Scheduled Orders This section includes a listing of several types of active, pending, and scheduled orders, including clinic medications orders, diagnostic test orders, procedure orders and consult orders; where the start date of the order is 45 days before the date of the Encounter or 45 days after the date of theEncounter. The data comes from all [place] treatment facilities. Test Date/Time Test Type Test Details Facility Name Mar 11, 2025 09:03 PM Consult Order PRE OP ORT HO THERAPY EVAL OUTPT STL Cons [facility] Mar 11, 2025 09:03 PM Procedure Order CP EKG STL CP EKG - STL Proc [facility] Lab Results: +/- 30 days of the encounter This section includes the Chemistry and Hematology Lab Results on record with [place] for the patient. Radiology Reports and Pathology Reports are provided separately, in subsequent sections. Lab Results This section contains the Chemistry/Hematology Results that were resulted 30 days before or 30 daysafter the date of the Encounter. Date/Time Source Result Type Result - Unit Interpretation Reference Range Specimen Type Comment Feb 13, 2025 11:14 AM [facility] LDH PLASMA Specimen Type: PLASMA Comment: No hemolysis noted. Ordering Provider: KHOI GRIFFIN Report Released Date/Time: Jan 11, 2025 12:19 PM Reporting Lab: [facility] [address] [facility] [address] Performing Lab: [facility] [address] [facility] [address] LDH 325 U/L H [id number] Feb 13, 2025 11:14 AM [facility] COMPREHENSIVE METABOLIC PANEL PLASMA Specimen Type: PLASMA Comment: No hemolysis noted. Ordering Provider: KHOI GRIFFIN Report Released Date/Time: Jan 11, 2025 12:19 PM Reporting Lab: [facility] [address] [facility] [address] Performing Lab: [address] [address] CREATININE 1.09 mg/dL 0.7-1.3 UREA NITROGEN 21.0 [...] Jan 11, 2025 12:19 PM Reporting Lab: [address] [address] Performing Lab: [address] [address] WBC 7.3 10*3/uL 3.6-11.2 RBC 4.24 10*6/uL [...] and tobacco- related health factors from the [place] facility where the Encounter took place. Current Smoking Status This section includes the most current smoking, or tobacco-related health factor, from the [place] facility where the Encounter took place. Date/Time Current Smoking Status Comment Facil ity Aug 09, 2024 09:30 AM VA-TOBACCO USE FOR [facility] Tobacco Use History This section includes a history of the smoking, or tobacco-related health factors, that were collected on or before the date of the Encounter. The data comes from the [place] facility where the Encounter took place. Date/Time Smoking Status/Tobacco Use Comment [facility] [place] Aug 09, 2024 09:30 AM VA-TOBACCO USE FOR [facility] Advance Directives: All historical and current Section Date Range: From patient's date of to the date document was created. This section includes ALL of a patient's completed or amended [place] Advance and Rescinded Directives. The entries below indicate that a directive exists for the patient, but an actual copy is not included with this document. The data comes from all [place] facilities. Date Advance Directives Provider Source Jun 12, 2016 ADVANCE DIRECTIVE [facility]ROS [facility] December 24, 2011 ADVANCE DIRECTIVE DISCUSSION TOMMY VAZQUEZ [facility] Radiology Reports: +/- 30 days of the [...] the Encounter. The data comes from all [place] treatment facilities. Date/Time Radiology Report Provider Source Feb 23, 2025 09:17 AM KNEE OA SERIES RIG HT 3 VWS>/=55: JOYCELYN SEPULVEDA [id number] -1945 M Exm Date: FEB 23, 2025@09:17 Req Phys: PERFECTO BOLES W Pat Loc: [facility]TH[facility] GEOSPATIAL ANALYST ELVI (Req'g Loc Img Loc: [facility] SUITE Service: Unknown [facility] [address] [place] [address] (Case [id number] COMPLETE) KNEE,RIGHT 3 VIEWS (RAD Detailed) CPT:24178 Proc Modifiers : BILAT AP & BILAT SUNRISE Reason for Study: 4wk pov RTKA(11/18/2024 DR VITAL) (Case [id number] COMPLETE) KNEE,LEFT 1 OR 2 VIEWS (RAD Detailed) CPT:23387 Proc Modifiers : BILAT AP & BILAT SUNRISE Clinical History: Do films need to be ortho templated printed? No Report Status: Verified Date Reported: FEB 24, 2025 Date Verified: FEB 24, 2025 [employer] E-Sig:/ES/GIANNA CLAY Report: EXAMINATION: KNEE,RIGHT 3 VIEWS, KNEE,LEFT 1 OR 2 VIEWS [id number] DATE: 02/23/2025 9:17 AM HISTORY: 4wk pov [...] knee. Primary Interpreting Staff: GIANNA CLAY, RADIOLOGIST ([employer]) /GIANNA [facility] Encounter Notes: All associated encounter notes This section contains the clinical notes associated to the Encounter. Date/Time Encounter Note(s) Provider Source Feb 20, 2025 09:10 AM PHYSICAL THERAPY D ISCHARGE NOTE: LOCAL TITLE: PT DISCHARGE STL STANDARD TITLE: PHYSICAL THERAPY DISCHARGE NOTE DATE OF NOTE: FEB 20, 2025@09:10 ENTRY DATE: FEB 20, 2025@09:10:14 AUTHOR: TERRELL COLES EXP COSIGNER: URGENCY: STATUS: COMPLETED PHYSICAL THERAPY DISCHARGE Provisional dx: Z47.1 Start of Care: 12/19/24 Reevaluation due: POC through: Visits to date: 7 No shows/cancellations: 1 Treatment time: - patient checked in late Total: 20 mins. Therapeutic exercise: 20 mins. Manual therapy: min s/p R TKA 11/21/2024 Subjective: [place] reports no further concerns with R knee with pain or weakness. --Pain Rating (0-10): Current: 0/10 Best: 0/10 Worst: 0/10 Location: R knee --Patient goal(s): Pt reports [...] Strength: Right Left Iliopsoas 4/5 3-/5 Quads 5/5 4+/5 Hamstrings 5/5 4+/5 Glut max Glut med Ankle dorsiflexion 5/5 2+/5 Muscle length: Right Left Quads Hamstrings mod tightness mod tightness ITB Treatment provided: -Reviewed final HEP -bridges, squats, hamstring curls, step-ups -added standing TKE L knee against wall with towel/ball behind knee -staggered stance sit>stand to increase weight bearing through RLE Current HEP 1. Seated hamstring stretch [...] another Assessment: demos R knee AROM WNL, Strength WFL. Met all PT goals. Patient reports no concerns and no remaining functional limitations. Patient appropriate for D/C at this time, continue with HEP for self management. Physical Therapy Diagnosis: Force production deficit Goals: Short term: (4 weeks) 1) Pt will demonstrate independence with current HEP x 1 - GOAL MET 2) Pt will verbalize pain at worst - D/C 3) Pt will demo R knee AROM = 0-120 deg - GOAL MET residential: (12 weeks) 1) Pt will demonstrate independence with final HEP x 1 - GOAL MET 2) Pt will verbalize pain at worst - D/C 3) Pt will demo R knee strength = 5/5 - GOAL MET Equipment Pt Currently Has: stretch out strap, theraband Plan: D/C PT. Continue with HEP for self management. /brianda/ TERRELL COLES PHYSICAL THERAPIST Signed: 02/20/2025 13:07 TERRELL COLES [facility]
--- OUTSIDE RECORDS SUMMARY | 2025-02-23 05:00 | XMS_ITS | Encounter Summary ---
Author Name [place] Address [address] [place] [address] Care Team Providers Care Technology Applications Engineer Name Role Phone KOLE GARY Primary Care [...] Policy Wiseman A[facility]G [facility] (WNR) MEDICARE [facility] (WNR) Aug 03, 2017 [facility] ([facility]) [id number] [phone] [id number] FR RAE SEPULVEDA PATIENT [employer]NA [facility] (WNR) MEDICARE ADVANTAGE [facility] (WNR) December 01, 2022 [id number] [phone] FR RAE SEPULVEDA PATIENT [employer] [facility] (WNR) MEDICARE ADVANTAGE [facility] (WNR) December 01, 2022 [id number] [phone] FR COCO ANK PATIENT [employer] [facility] (WNR) MEDICARE ADVANTAGE [facility] ( WNR) December 01, 2022 [id number] [phone] FR RAE SEPULVEDA PATIENT HUMANA [facility] (WNR) MEDICARE ADVANTAGE [facility] (WNR) Aug 03, 2021 [id number] [phone] FR COCO ANK PATIENT [employer] [facility] (WNR) MEDICARE ADVANTAGE [facility] (WNR) Aug 03, 2017 [id number] [phone] FR COCO ANK PATIENT [employer] [facility] (WNR) MEDICARE ADVANTAGE [facility] (WNR) Aug 03, 2017 [id number] [phone] FR COCO ANK PATIENT Selected Encounter This section includes the information on record at [place] for the Encounter. Date/Time Encounter Type Encounter Description Reason Provider Source Feb 23, 2025 10:00 AM OFFICE O/P EST MOD 30 MIN ORTHO/JOINT SURG ICD-10-CM M17.0 Bilateral primary osteoarthritis of knee RODERICK YAÑEZ [place] Encounter Template Text not used by [place] Assessments - Encounter Diagnoses This section includes the primary and secondary diagnoses documented for the Encounter. 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 This section includes future appointments and future orders which are active, pending or scheduled. Future Appointments This section includes appointments that were scheduled to occur 6 months from the date of the Encounter, up to a maximum of 20 appointments. The data comes from all [place] treatment facilities. Appointment Date/Time Appointment Type Appointme nt Facility Name Feb 27, 2025 09:30 AM AMBULATORY - MEDICINE [facility] Mar 30, 2025 01:15 PM AMBULATORY - MEDICINE [facility] Apr 12, 2025 12:00 PM AM[facility]ULATORY - NONE [facility] May 01, 2025 09:30 AM AMBULATORY - SURGERY [facility] May 16, 2025 10:00 AM AMBULATORY - SURGERY [facility] Ronny [facility] May 16, 2025 11:00 AM AMBULATORY - REHAB MEDICIN E [facility] May 31, 2025 10:00 AM AMBULATORY - NONE [facility] Sanz [facility] Jun 28, 2025 09:00 AM AMBULATORY - SURGERY [facility] Aug 15, 2025 11:00 AM AMBULATORY - MEDICINE [facility] Aug 24, 2025 09:00 AM AMBULATORY - SURGERY [facility] Active, Pending, and Scheduled Orders [...] ORT HO THERAPY EVAL OUTPT STL Cons Cable Engineer's [facility] Mar 11, 2025 09:03 PM Procedure Order CP EKG STL CP EKG - STL Proc [facility] Lab Results: +/- 30 days of [...] Type Comment Feb 13, 2025 11:14 AM [facility] LDH PLASMA Specimen Type: PLASMA Comment: No hemolysis noted. Ordering Provider: KHOI GRIFFIN Report Released Date/Time: Jan 11, 2025 12:19 PM Reporting Lab: [facility] [address] [address] Performing Lab: [facility] [address] [facility] [address] LDH 325 U/L H 125-243 Feb 13, 2025 11:14 AM [facility] COMPREHENSIVE METABOLIC PANEL PLASMA Specimen Type: PLASMA Comment: No hemolysis noted. Ordering Provider: KHOI GRIFFIN Report Released Date/Time: Jan 11, 2025 12:19 PM Reporting Lab: [address] [address] Performing Lab: [address] [address] CREATININE 1.09 mg/dL 0.7-1.3 UREA NITROGEN 21.0 [...] 69.0 >60 Feb 13, 2025 11:14 AM [facility] CBC BLOOD Specimen Type: BLOOD No comment entered. Ordering Provider: KHOI GRIFFIN Report Released Date/Time: Jan 11, 2025 12:19 PM Reporting Lab: [address] [address] Performing Lab: [address] [address] WBC 7.3 10*3/uL 3.6-11.2 RBC 4.24 10*6/uL [...] DIRECTIVE DISCUSSION TOMMY VAZQUEZ [facility] Radiology Reports: +/- 30 days of the [...] SERIES RIG HT 3 VWS>/=55: JOYCELYN SEPULVEDA [id number] -1945 M Ex Date: FEB 23, 2025@09:17 Req Phys: PERFECTO BOLES Pat Loc: [facility]TH[facility] CONSTRUCTION SITE CROSSING GUARD ELVI (Req'g Loc Img Loc: [facility] SUITE Service: [facility] [address] [place] [address] (Case [id number] COMPLETE) KNEE,RIGHT 3 VIEWS (RAD Detailed) CPT:54944 Proc Modifiers : BILAT AP & BILAT SUNRISE Reason for Study: 4wk pov RTKA(11/18/2024 DR VITAL) (Case [id number] COMPLETE) KNEE,LEFT 1 OR 2 VIEWS (RAD Detailed) CPT:09168 Proc Modifiers : BILAT AP & BILAT SUNRISE Clinical History: Do films need to be ortho templated printed? No Report Status: Verified Date Reported: FEB 24, 2025 Date Verified: FEB 24, 2025 Ritual Circumciser E-Sig:/ES/GIANNA CLAY Report: EXAMINATION: KNEE,RIGHT 3 VIEWS, KNEE,LEFT 1 OR 2 VIEWS [id number] DATE: 02/23/2025 9:17 AM HISTORY: 4wk pov [...] knee. Primary Interpreting Staff: GIANNA CLAY, RADIOLOGIST (Ritual Circumciser) /GIANNA [facility] Encounter Notes: All associated encounter notes This section contains the clinical notes associated to the Encounter. Date/Time Encounter Note(s) Provider Source Feb 23, 2025 11:04 AM SUICIDE PREVENTION NOTE: LOCAL TITLE: ADMISSION SUICIDE SCREENING STANDARD TITLE: SUICIDE PREVENTION NOTE DATE OF NOTE: FEB 23, 2025@11:04 ENTRY DATE: FEB 23, 2025@11:04:34 AUTHOR: ALEE ORTA EXP COSIGNER: URGENCY: STATUS: COMPLETED C-SSRS Screening [place] Suicide Severity Rating Scale (C-SSRS) screener 1. Over the past month, have you [...] required due to responses to other questions. /brianda/ ELVIRA HIGH, RN REGISTERED NURSE Signed: 02/23/2025 11:05 ALEE ORTA [facility] Feb 23, 2025 10:21 AM ORTHOPEDIC SURGERY NOTE: LOCAL TITLE: ORTHOPEDIC [facility] STANDARD TITLE: ORTHOPEDIC SURGERY NOTE DATE OF NOTE: FEB 23, 2025@10:21 ENTRY DATE: FEB 23, 2025@10:21:13 AUTHOR: CARLA YAÑEZ EXP COSIGNER: URGENCY: STATUS: COMPLETED INTERIM HISTORY: JOYCELYN SEPULVEDA is 3 months s/p R TKA. He is doing very well with the knee and has completed formal PT. He is using his stationary bicycle and walking on his own. He has minimal pain and is not taking any pain medications. His left knee continues to hold him back more than anything. 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 He has been wearing a hinged neoprene brace and requests a new one today. He also is interested in scheduling L TKA in May. ==== VITAL SIGNS: Temp: 97.4 F [36.3 C] (02/23/2025 09:39) Pulse: 71 (02/23/2025 09:39) BP: 113/62 (02/23/2025 09:39) RESP: 18 (02/23/2025 09:39) Pain: 0 (02/23/2025 09:39) Height: 67 in [170.2 cm] (02/23/2025 09:39) Weight: 201 lb [91.17 kg] (02/23/2025 09:39) BMI:31.5 ==== CONSTITUTIONAL: A&O X 3, well-developed, well-nourished and in no acute distress. mood is pleasant and appropriate ambulation: antalgic with use of wheeled walker, left foot drop respirations: even and unlabored hearing: intact skin intact MUSCULOSKELETAL EXAMINATION: Right knee with well healed surgical incision. Moderate effusion. No warmth or erythema. Range of motion is 0-125 with no instability. Left knee with rigid valgus deformity and ROM 10-100. Weak ankle dorsiflexion on left with AFO in place. No focal motor deficits on right. Sensation intact to light touch. ==== RADIOGRAPH: Radiographs of the bilateral knees shows well positioned right total knee arthroplasty without evidence of complication. Left knee with moderate to severe degenerative changes with valgus deformity. 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 Continue with activities as tolerated. He knows to take antibiotics prior to any dental cleanings/procedures. He has a dental appt scheduled in Apr. He is interested in scheduling L TKA in May. We have given him a tentative date of 05/31/25 with pre-op 05/16/25. He will contact us with any issues in the meantime. Prosthetic order for new neoprene brace for left knee placed today. He has a small amount of residual foot dorsiflexion and I discussed with him the risk of peroneal nerve injury in the setting of valgus knee OA. He expressed understanding of his increased risk of nerve injury. ==== /brianda/ CARLA YAÑEZ MD Staff Physician, Orthopedics Signed: 02/23/2025 10:32 Receipt Acknowledged By: 02/23/2025 16:06 /brianda/ NICK RUEDA ANP-BC Nurse Practitioner, Orthopedics CARLA YAÑEZ [facility]
--- OUTSIDE RECORDS SUMMARY | 2025-03-08 05:14 | XMS_ITS ---
Author Name [place] Organization [place] Address [address] [place] [address] Care Team Providers Care Wildland Fire Fighter Name Role Phone KOLE GARY Primary Care [...] Wiseman [facility] (WNR) MEDICARE ADVANTAGE [facility] (WNR) Aug 03, 2017 [facility] (WN) [id number] [phone] FR RAE SEPULVEDA PATIENT HUMANA [facility] (WNR) MEDICARE ADVANTAGE [facility] (WNR) December 01, 2022 [id number] [phone] [id number] FR RAE SEPULVEDA PATIENT [employer] [facility] (WNR) MEDICARE ADVANTAGE [facility] (WNR) December 01, 2022 [id number] [phone] [id number] FR RAE SEPULVEDA PATIENT [employer] [facility] (WNR) MEDICARE ADVANTAGE [facility] ( WNR) December 01, 2022 [id number] [phone] FR RAE SEPULVEDA PATIENT HUMANA [facility] (WNR) MEDICARE ADVANTAGE [facility] (WNR) Aug 03, 2021 [id number] [phone] FR RAE SEPULVEDA PATIENT [employer] [facility] (WNR) MEDICARE ADVANTAGE [facility] (WNR) Aug 03, 2017 [id number] FR COCO ANK PATIENT [employer] [facility] (WNR) MEDICARE ADVANTAGE [facility] (WNR) Aug 03, 2017 [id number] [phone] FR RAE SEPULVEDA PATIENT Selected Encounter This section includes the information on [place] at [place] for the Encounter. Date/Time Encounter Type Encounter Description Reason Pro vider Source Mar 08, 2025 10:14 AM Outpatient Encounter ADMIN PAT ACTIVTIES (MASNONCT) IHE Encounter Template Text not used by [place] Plan of Treatment: Future Appointments (+ 6 months) and Future Tests (+/- 45 days) The Plan of Treatment section includes future care activities for the patient from all [place] treatmentfacilities. This section includes future appointments and future orders which are active, pending or scheduled. Future Appointments This section includes appointments that were scheduled to occur 6 months from the date of the Encounter, up to a maximum of 20 appointments. The data comes from all [place] treatment facilities. Appointment Date/Time Appointment Type Appointme nt Facility Name Mar 30, 2025 01:15 PM AMBULATORY - MEDICINE [facility] Apr 12, 2025 12:00 PM AMBULATORY - NONE [facility] May 01, 2025 09:30 AM AMBULATORY - SURGERY [facility] May 16, 2025 10:00 AM AMBULATORY - SURGERY [facility] May 16, 2025 11:00 AM AMBULATORY - REHAB MEDICIN E [facility] May 31, 2025 10:00 AM AMBULATORY - NONE [facility] Jun 28, 2025 09:00 AM AMBULATORY - SURGERY [facility] Aug 15, 2025 11:00 AM AMBULATORY - MEDICINE [facility] Aug 24, 2025 09:00 AM [facility] Active, Pending, and Scheduled Orders This section includes a listing of several types of active, pending, and scheduled orders, including clinic medications orders, diagnostic test orders, procedure orders and consult orders; where the start date of the order is 45 days before the date of the Encounter or 45 days after the date of theEncounter. The data comes from all [place] treatment facilities. Test Date/Time Test Type Test Details Facility Name Mar 11, 2025 09:03 PM Consult Order PRE OP ORT HO THERAPY EVAL OUTPT STL Cons [facility] Mar 11, 2025 09:03 PM Procedure Order CP EKG STL CP EKG - STL [facility] Lab Results: +/- 30 days of the [...] Type Comment Feb 13, 2025 11:14 AM [facility] LDH PLASMA Specimen Type: PLASMA Comment: No hemolysis noted. Ordering Provider: KHOI GRIFFIN Report Released Date/Time: Jan 11, 2025 12:19 PM Reporting Lab: [facility] [address] [address] Performing Lab: [facility] [address] [address] LDH 325 U/L H 125-243 Feb 13, 2025 11:14 AM [facility] COMPREHENSIVE METABOLIC PANEL PLASMA Specimen Type: PLASMA Comment: No hemolysis noted. Ordering Provider: KHOI GIRFFIN Report Released Date/Time: Jan 11, 2025 12:19 PM Reporting Lab: [facility] [address] [address] Performing Lab: [facility] [address] [address] CREATININE 1.09 mg/dL 0.7-1.3 UREA NITROGEN 21.0 [...] 69.0 >60 Feb 13, 2025 11:14 AM [facility] CBC BLOOD Specimen Type: BLOOD No comment entered. Ordering Provider: KHOI GRIFFIN Report Released Date/Time: Jan 11, 2025 12:19 PM Reporting Lab: [facility] [address] [address] Performing Lab: [facility] [address] [address] WBC 7.3 10*3/uL 3.6-11.2 RBC 4.24 10*6/uL [...] 12, [address] [facility] December 24, 2011 ADVANCE DIRECTIVE DISCUSSION TOMMY VAZQUEZ [facility] Radiology Reports: +/- 30 days [...] the Encounter. The data comes from all [place] treatment facilities. Date/Time Radiology Report Provider Source Feb 23, 2025 09:17 AM KNEE OA SERIES RIG HT 3 VWS>/=55: JOYCELYN SEPULVEDA [id number] -1945 M Exm Date: FEB 23, 2025@09:17 Req Phys: WEHKING,PERFECTO W Pat Loc: [facility] PROPERTY MANAGEMENT SPECIALIST WEHKING (Req'g Loc Img Loc: [facility] SUITE Service: [address] [address] (Case [id number] COMPLETE) KNEE,RIGHT 3 VIEWS (RAD Detailed) CPT:14079 Proc Modifiers : BILAT AP & BILAT SUNRISE Reason for Study: 4wk pov RTKA(11/18/2024 DR VITAL) (Case [id number] COMPLETE) KNEE,LEFT 1 OR 2 VIEWS (RAD Detailed) CPT:04083 Proc Modifiers : BILAT AP & BILAT SUNRISE Clinical History: Do films need to be ortho templated printed? No Report Status: Verified Date Reported: FEB 24, 2025 Date Verified: FEB 24, 2025 911 Telecommunicator E-Sig:/ES/GIANNA CLAY Report: EXAMINATION: KNEE,RIGHT 3 VIEWS, KNEE,LEFT 1 OR 2 VIEWS [id number] DATE: 02/23/2025 9:17 AM HISTORY: 4wk pov [...] knee. Primary Interpreting Staff: GIANNA CLAY, RADIOLOGIST (911 Telecommunicator) /GIANNA LITTLE [facility] Encounter Notes: All associated encounter notes This section contains the clinical notes associated to the Encounter. Date/Time Encounter Note(s) Provider Source Mar 08, 2025 10:14 AM PHARMACY PROGRESS NOTE: LOCAL TITLE: PHARMACY GENERAL ST STANDARD TITLE: PHARMACY PROGRESS NOTE DATE OF NOTE: MAR 08, 2025@10:14 ENTRY DATE: MAR 08, 2025@10:14:57 AUTHOR: GURVINDER REEVES EXP COSIGNER: URGENCY: STATUS: COMPLETED [place] sent secure message to Pharmacy requesting refill of ATORVASTATIN CALCIUM 80MG TAB. Rx has . Please renew as deemed appropriate. Gurvinder Reeves PharmD. /brianda/ GURVINDER REEVES Signed: 03/08/2025 10:16 Receipt Acknowledged By: 03/08/2025 12:55 /brianda/ KOLE GARY STAFF PHYSICIAN GURVINDER REEVES [facility]
--- OUTSIDE RECORDS SUMMARY | 2025-03-25 21:16 | XMS_ITS | Encounter Summary ---
Author Name [facility] Organization [facility] Address [address] [place] [address] Care Team Providers Care Interventional Radiology Technologist Name Role Phone KOLE GARY Primary Care [...] Name Patient's Relationship to Policy Wiseman [facility] (WNR) MEDICARE ADVANTAGE [facility] (WNR) Aug 03, 2017 [facility] (WN) [id number] [phone] FR RAE SEPULVEDA PATIENT [employer] [facility] (WNR) MEDICARE ADVANTAGE [facility] (WNR) December 01, 2022 [id number] [phone] FR RAE SEPUL[place] PATIENT [employer] [facility] (WNR) MEDICARE ADVANTAGE [facility] (WNR) December 01, 2022 [id number] [phone] FR RAE SEPULVEDA PATIENT [employer] [facility] (WNR) MEDICARE ADVANTAGE [facility] ( WNR) December 01, 2022 [id number] [phone] FR RAE SEPUL[place]EDA PATIENT [employer] [facility] (WNR) MEDICARE ADVANTAGE [facility] (WNR) Aug 03, 2021 [id number] [phone] FR RAE SEPULVEDA PATIENT [employer] [facility] (WNR) MEDICARE ADVANTAGE [facility] (WNR) Aug 03, 2017 [id number] [phone] FR COCO ANK PATIENT [employer] [facility] (WNR) MEDICARE ADVANTAGE [facility] (WNR) Aug 03, 2017 [id number] [phone] FR RAE SEPULVEDA PATIENT Selected Encounter This section includes the information on record at [place] for the Encounter. Date/Time Encounter Type Encounter Description Reason Pro vider Source Mar 26, 2025 02:16 AM Outpatient Encounter ADMIN PAT ACTIVTIES (MASNONCT) [facility] Encounter Template Text not used by [place] Plan of Treatment: Future Appointments (+ 6 [...] The data comes from all [place] treatment facilities. Appointment Date/Time Appointment Type Appointme nt Facility Name Mar 30, 2025 01:15 PM AMBULATORY - MEDICINE [facility] Apr 12, 2025 12:00 PM AMBULATORY - NONE [facility] May 01, 2025 09:30 AM AMBULATORY - SURGERY [facility] May 16, 2025 10:00 AM AMBULATORY - SURGERY [facility] May 16, 2025 11:00 AM AMBULATORY - REHAB MEDICIN E [facility] May 31, 2025 10:00 AM AMBULATORY - NONE [facility] Jun 28, 2025 09:00 AM AMBULATORY - SURGERY [facility] Aug 15, 2025 11:00 AM AMBULATORY - MEDICINE [facility] Aug 24, 2025 09:00 AM AMBULATORY - SURGERY [facility] Active, Pending, and Scheduled Orders This section includes a listing of several types of active, pending, and scheduled orders, including clinic medications orders, diagnostic test orders, procedure orders and consult orders; where the start date of the order is 45 days before the date of the Encounter or 45 days after the date of theEncounter. The data comes from all [place] treatment facilities. Test Date/Time Test Type Test Details Facility Name Mar 11, 2025 09:03 PM Consult Order PRE OP ORT HO THERAP[facility]AL [facility] Mar 11, 2025 09:03 PM Procedure Order CP EKG STL [facility] - [facility] May 03, 2025 12:00 AM Laboratory - Chemistry Order CBC BLOOD PRE-OP SP [facility] May 03, 2025 12:00 AM Laboratory - Chemistry Order [id number] BLOOD SP ONCE [facility] May 03, 2025 12:00 AM Laboratory - Chemistry Order COMPREHENSIVE METABOLIC PANEL GREEN LI/HEP BLD/PLAS PLASMA PRE-OP SP [facility] May 03, 2025 12:00 AM Laboratory - Chemistry Order PT/INR NEW (STL-MA) BLOOD PLASMA PRE-OP SP [facility] May 03, 2025 12:00 AM Laboratory - Chemistry Order URINALYSIS (STL-PB) URINE PRE-OP SP [facility] May 03, 2025 12:00 AM Laboratory - Chemistry Order URINE DRUG SCREEN (STL) URINE YELLOW SP [facility] May 03, 2025 12:00 AM Imaging - General Radiology Order BONE LENGTH STUDY (SCANOGRAM) [facility] May 03, 2025 12:00 AM Imaging - General Radiology Order KNEE OA SERIES LEFT 3 VWS>/=55 BILAT AP & BILAT SUNRISE [facility] Social History: Smoking Status (Most current) and [...] 09:30 AM VA-TOBACCO USE FOR SARAI CIGARETTES [facility] Tobacco Use History This section includes a history of the smoking, or tobacco-related health factors, that were collected on or before the date of the Encounter. The data comes from the [place] facility where the Encounter took place. Date/Time Smoking Status/Tobacco Use Comment Patrick toribio Aug 09, 2024 09:30 AM VA-TOBACCO USE FOR SARAI ARAUJO [facility] Advance Directives: All historical and [...] 12, [address] [facility] December 24, 2011 ADVANCE DIRECTIVE DISCUSSION TOMMY VAZQUEZ [facility] Encounter Notes: All associated encounter notes This section contains the clinical notes associated to the Encounter. Date/Time Encounter Note(s) Provider Source Mar 26, 2025 02:16 AM PHARMACY PROGRESS NOTE: LOCAL TITLE: PH[facility]Y [facility] STANDARD TITLE: PHARMACY PROGRESS NOTE DATE OF NOTE: MAR 26, 2025@02:16 ENTRY DATE: MAR 26, 2025@02:16:59 AUTHOR: MOMO MCNULTY EXP COSIGNER: URGENCY: STATUS: COMPLETED contacted pharmacy via secure messaging and is requesting that the following prescription be renewed.Please renew prescription to fill, if deemed appropriate. MEDICATION RENEWAL REQUESTED FOR: FLUTICASONE SOLN,NASAL 50MCG/SPRAY INSTILL 2 SPRAYS IN NOSTRIL(S) ONCE A DAY FOR RHINITIS (MUST BE USED DIRECTED FOR MINIMUM OF 21 DAYS TO PROVIDE ADEQUATE BENEFITS) Quantity: 3 Refills: 3 Indication: FOR RHINITIS /brianda/ MOMO MCNULTY,PHARMD CLINICAL SUPPORT PHARMACIST Signed: 03/26/2025 02:19 Receipt Acknowledged By: 03/27/2025 11:13 /brianda/ Contreras Barrett Rn, BSN REGISTERED NURSE MOMO MCNULTY [facility]
--- OUTSIDE RECORDS SUMMARY | 2025-03-28 05:25 | XMS_ITS | Continuity of Care Document ---
Author Name [facility] Organization [facility] Care Team Providers Care Coater Operator Insulation Board Name Role Phone [facility] Unavailable Unavailable Problems Combined list of problems from Department of Defense and [facility] Affairs facilities. It does not include entries that were removed or entered in error. Problem Status Onset Date Problem Type Date of Resolution Comments Source Anxiety ([facility] [id number]) Active Condition [facility] B-cell lymphoma Active Condition Jul 04, 2022 Entered By: LUÍS LANE Comment: followed by hematology [facility] Benign essential hypertension Active Condition [facility] Benign prostatic hyperplasia Active Condition [facility] Bilateral subjective tinnitus of ears Active Condition [facility] Cerebral infarction Active Condition [facility] Chronic kidney disease Active Condition 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 Foot-drop gait Active Condition [facility] Generalized anxiety disorder Active Condition [facility] H/O: Stroke ([facility] [id number]) Active Condition Jul 04, 2022 Entered By: LUÍS LANE Comment: L footdrop; wears brace; L leg weaker than RD 2021 Entered By: LUÍS LANE Comment: using straight or quad cane [facility] History of arthroplasty of right knee Active Condition [facility] History of malignant neoplasm of skin Active Condition [facility] HTN - Hypertension ([facility] [id number]) Active Condition [facility] Hyperglycemia Active Condition [facility] Hyperlipidemia Active Condition [facility] Hyperlipidemia ([facility] [id number]) Active Condition [facility] Left foot drop Active Condition [facility] Obstructive sleep apnea syndrome Active Condition [facility] Pes planus Active Condition [facility] Polyp of colon Active Condition [facility] Posttraumatic stress disorder Active Condition [facility] Sensorineural hearing loss of bilateral ears Active Condition [facility] Sleep apnoea Active Condition Jul 04, 2022 Entered By: LUÍS LANE Comment: using bipap [facility] Benign prostatic hyperplasia (SNOMED CT [id number]) Inactive Condition 09/20/2015 [facility] Cerebrovascular Accident (ICD-9-CM 436.) Inactive Condition 09/20/2015 [facility] Hearing loss * (ICD-9-CM 389.9) Inactive Condition 09/20/2015 [facility] Hypercholesterolemia * (ICD-9-CM 272.0) Inactive Condition 09/20/2015 [facility] Hyperglycemia * (ICD-9-CM 790.29) Inactive Condition 09/20/2015 [facility] Hypertensive disorder Inactive Condition 09/20/2015 [facility] Moderate depression (SNOMED CT [id number]) Inactive Condition 09/20/2015 ARCHIE VLADIMIR Long [facility] Posttraumatic stress disorder (SNOMED CT [id number]) Inactive Condition 09/20/2015 [facility] With Mixed Emotions Inactive Condition 09/20/2015 [facility] Diagnosis: ICD-10-CM G47.33 Obstructive sleep apnea (adult) (pediatric) Active Diagnosis [facility] Diagnosis: ICD-10-CM M17.12 Unilateral primary osteoarthritis, left knee Active Diagnosis [facility] Diagnosis: ICD-10-CM M17.0 Bilateral primary osteoarthritis of knee Active Diagnosis [facility] Diagnosis: ICD-10-CM Z47.1 Aftercare following joint replacement surgery Active Diagnosis [facility] Diagnosis: ICD-10-CM I10 Essential (primary) hypertension Active [facility] Diagnosis: ICD-10-CM H25.813 Combined forms of age-related cataract, bilateral Active Diagnosis [facility] Diagnosis: ICD-10-CM C85.10 Unspecified B-cell lymphoma, unspecified site Active Diagnosis [facility] Diagnosis: ICD-10-CM F32.A Depression, unspecified Active Diagnosis [facility] Diagnosis: ICD-10-CM N18.9 Chronic kidney disease, unspecified Active Diagnosis [facility] Diagnosis: ICD-10-CM Z85.820 Personal history of malignant melanoma of skin Active Diagnosis [facility] Diagnosis: ICD-10-CM Z46.1 Encounter for fitting and adjustment of hearing aid Active Diagnosis [facility] Diagnosis: ICD-10-CM M17.11 Unilateral primary osteoarthritis, right knee Active Diagnosis [facility] Diagnosis: ICD-10-CM Z65.9 Problem related to unspecified psychosocial circumstances Active Diagnosis [facility] Diagnosis: ICD-10-CM Z71.81 Spiritual or mormonism counseling Active Diagnosis [facility] Diagnosis: ICD-10-CM M25.561 Pain in right knee Active Diagnosis [facility] Admit Reason: R TKA Active Diagnosis [facility] Diagnosis: ICD-10-CM Z01.818 Encounter for other preprocedural examination Active Diagnosis [facility] Diagnosis: ICD-10-CM R07.9 Chest pain, unspecified Active Diagnosis [facility] Diagnosis: ICD-10-CM H90.3 Sensorineural hearing loss, bilateral Active Diagnosis [facility] Diagnosis: ICD-10-CM E66.811 Obesity, class 1 Active Diagnosis [facility] Diagnosis: ICD-10-CM K03.6 Deposits [accretions] on teeth Active Diagnosis [facility] Diagnosis: ICD-10-CM Z01.20 Encounter for dental exam and cleaning w/o abnormal findings Active Diagnosis [facility] Diagnosis: ICD-10-CM Z85.828 Personal history of other malignant neoplasm of skin Active Diagnosis [facility] Diagnosis: ICD-10-CM Z86.73 Prsnl hx of TIA (TIA), and cereb infrc w/o resid deficits Active Diagnosis [facility] Diagnosis: ICD-10-CM Z23 Encounter for immunization Active Diagnosis [facility] Diagnosis: ICD-10-CM M25.562 Pain in left knee Active Diagnosis [facility] Diagnosis: ICD-10-CM L57.0 Actinic keratosis Active Diagnosis [facility] Diagnosis: ICD-10-CM Z46.89 Encounter for fitting and adjustment of oth devices Active Diagnosis [facility] Diagnosis: ICD-10-CM H25.11 Age-related nuclear cataract, right eye Active Diagnosis [facility] Diagnosis: ICD-10-CM Q66.50 Congenital pes planus, unspecified foot Active Diagnosis [facility] Diagnosis: ICD-10-CM L82.1 Other seborrheic keratosis Active Diagnosis [facility] Diagnosis: ICD-10-CM F43.12 Post-traumatic stress disorder, chronic Active Diagnosis [facility] Diagnosis: ICD-10-CM M21.40 Flat foot [pes planus] (acquired), unspecified foot Active Diagnosis [facility] Diagnosis: ICD-10-CM C44.311 Basal cell carcinoma of skin of nose Active Diagnosis [facility] Medications Combined list of outpatient medications from Department of Defense and [facility] Affairs facilities.Medications provided include 1) outpatient medications from the last 15 months, and 2) patient-reported medications. Medication Details Route Status Patient Instructions Prescription Expires Prescription Number Last Dispense Date Ordering Provider Order Date Order Qty Source ACETAMINOPH EN 325MG TAB TAKE TWO TABLETS BY MOUTH EVERY 6 HOURS FOR PAIN CAUTION: DO NOT EXCEED 4000MG PER DAY ACETAMIN OPHEN (APAP) FROM ALL MEDS. ORAL 12/19/2024 [id number] EVELINA,A RAKUA 2024 120 [facility] AMOXICILLIN TRIHYDRATE 500MG CAP TAKE FOUR CAPSULES BY MOUTH ONE-TIME ONE HOUR PRIOR TO PROCEDUR E. FIVE DOSES IN BOTTLE ORAL ACTIVE 2025 [id number] 5 Jw BOLES W [address] [facility] AMOXICILLIN TRIHYDRATE 500MG CAP TAKE FOUR CAPSULES BY MOUTH ONE-TIME TAKE UNTIL GONE UNLESS OTHERWIS E DIRECTED . TAKE 4 CAPSULE ONE HOUR PRIOR TO PROCEDUR E ORAL DISCONT INUED BY PROVIDE R 2025 [id number] 5 Jw BOLES W [address] [facility] ASPIRIN 325MG TAB TAKE ONE TABLET ORALLY EVERY DAY ORAL ACTIVE ELVIS OVIEDO MD 2009 [facility] ASPIRIN 81MG TAB,EC TAKE ONE TABLET BY MOUTH TWICE A DAY TAKE WITH FOOD. ORAL 12/19/2024 [id number] Panchito HOYT RAKUA 2024 60 [facility] ATORVASTATI N CA 80MG TAB TAKE ONE-HALF TABLET BY MOUTH EVERY EVENING FOR HIGH CHOLESTE ROL ORAL SUSPEND ED 03/09/2026 [id number] 5 ME COOKIE TTISA 2024 45 [facility] ATORVASTATI N CA 80MG TAB TAKE ONE-HALF TABLET BY MOUTH EVERY EVENING FOR HIGH CHOLESTE ROL ORAL DISCONT INUED 01/05/2025 [id number] 5 JENNIFERS UZANNE 2023 45 [facility] BUPROPION HCL 300MG 24HR TAB,SA TAKE ONE TABLET BY MOUTH ONCE A DAY FOR DEPRESSI ON SWALLOW WHOLE - DO NOT CRUSH OR CHEW. ORAL ACTIVE 04/11/2025 [id number] 5 DEPAULO,S UZANNE [address] [facility] BUPROPION HCL 300MG 24HR TAB,SA TAKE ONE TABLET BY MOUTH ONCE A DAY FOR DEPRESSI ON SWALLOW WHOLE - DO NOT CRUSH OR CHEW. ORAL DISCONT INUED 08/10/2025 [id number] 5 GENEVA DONNELLY Panchito [address] [facility] BUPROPION HCL 300MG 24HR TAB,SA TAKE ONE TABLET BY MOUTH ONCE A DAY FOR DEPRESSI ON SWALLOW WHOLE - DO NOT CRUSH OR CHEW. ORAL DISCONT INUED 05/10/2025 [id number] 4 SYALGENEVA KAY A [address] [facility] BUPROPION HCL 300MG 24HR TAB,SA TAKE ONE TABLET BY MOUTH ONCE A DAY FOR DEPRESSI ON SWALLOW WHOLE - DO NOT CRUSH OR CHEW. ORAL DISCONT INUED 01/29/2025 [id number] 4 GENEVA DONNELLY [address] [facility] CALCIUM 500MG (CA CARBONATE-1 .25GM) TAB TAKE TWO TABLETS BY MOUTH TWICE A DAY FOR CALCIUM SUPPLEME NTATION ORAL 01/25/2025 [id number] 5 Jw BOLES W 2024 360 [facility] CETIRIZINE HCL 10MG TAB TAKE ONE TABLET BY MOUTH ONCE A DAY FOR ALLERGY SYMPTOMS ORAL 01/05/2025 [id number] 5 Umu RODRIGUEZ 2023 90 [facility] CHLORHEXIDI NE GLUCONATE 4% LIQUID,TOP APPLY MODERATE AMOUNT TO AFFECTED AREA(S) DIRECTED FOR SKIN DISINFEC TION FOR 5 CONSECUT IKE DAYS BEFORE SURGERY. WASH FROM NECK DOWN WITH SOLUTION WHILE SHOWERIN G MORNING OF SURGERY. REPEAT BEFORE ARRIVING TO HOSPITAL . FOR 5 CONSECUT IKE DAYS BEFORE SURGERY. WASH FROM NECK DOWN WITH SOLUTION WHILE SHOWERIN G MORNING OF SURGERY. REPEAT BEFORE ARRIVING TO HOSPITAL . TOPICA L ACTIVE 04/10/2025 [id number] KELLY SOLOMON 2024 240 [facility] CHLORHEXIDI NE GLUCONATE 4% LIQUID,TOP APPLY SMALL AMOUNT TO AFFECTED AREA(S) DIRECTED FOR SKIN DISINFEC TION (TOPICAL USE ONLY) AVOID CONTACT WITH EYES. STARTING 5 DAYS BEFORE SURGERY, WASH WITH WASH IN THE SHOWER FROM THE NECK DOWN. REPEAT DAILY AND THE MORNING OF SURGERY BEFORE ARRIVING AT THE HOSPITAL .. DAY OF SURGERY: REPEAT BEFORE ARRIVING TO THE HOSPITAL . (TOPICAL USE ONLY) AVOID CONTACT WITH EYES. STARTING 5 DAYS BEFORE SURGERY, WASH WITH WASH IN THE SHOWER FROM THE NECK DOWN. REPEAT DAILY AND THE MORNING OF SURGERY BEFORE ARRIVING AT THE HOSPITAL .. DAY OF SURGERY: REPEAT BEFORE ARRIVING TO THE HOSPITAL . DORI [place] 12/14/2024 [id number] Jw BOLES W 2024 240 [facility] CYCLOBENZAP RINE HCL 10MG TAB TAKE ONE TABLET BY MOUTH THREE TIMES A DAY NEEDED FOR MUSCLE SPASM MAY CAUSE DROWSINE SS. DO NOT DRINK ALCOHOL WHILE TAKING THIS MEDICATI ON. ORAL SUSPEND ED 08/16/2025 [id number] 5 Umu RODRIGUEZ 2024 270 [facility] CYCLOBENZAP RINE HCL 10MG TAB TAKE ONE TABLET BY MOUTH THREE TIMES A DAY NEEDED FOR MUSCLE SPASM MAY CAUSE DROWSINE SS. DO NOT DRINK ALCOHOL WHILE TAKING THIS MEDICATI ON. ORAL DISCONT INUED 10/27/2024 [id number] 4 BLU CAPELLAN R [address] [facility] CYCLOBENZAP RINE HCL 10MG TAB TAKE ONE TABLET BY MOUTH THREE TIMES A DAY NEEDED FOR MUSCLE SPASM MAY CAUSE DROWSINE SS. DO NOT DRINK ALCOHOL WHILE TAKING THIS MEDICATI ON. ORAL DISCONT INUED 05/25/2024 [id number] 4 BLU CAPELLAN R 2023 270 [facility] CYCLOBENZAP RINE HCL 10MG TAB TAKE ONE TABLET BY MOUTH THREE TIMES A DAY NEEDED FOR MUSCLE SPASM MAY CAUSE DROWSINE SS. DO NOT DRINK ALCOHOL WHILE TAKING THIS MEDICATI ON. ORAL DISCONT INUED 09/23/2024 [id number] 4 Umu RODRIGUEZ 2023 90 [facility] CYCLOBENZAP RINE HCL 5MG TAB TAKE ONE TABLET BY MOUTH THREE TIMES A DAY NEEDED FOR MUSCLE SPASM MAY CAUSE DROWSINE SS. DO NOT DRINK ALCOHOL WHILE TAKING THIS MEDICATI ON. ORAL 12/19/2024 [id number] Panchito HOYT 2024 90 [facility] DOCUSATE NA 50MG/SENNOS IDES 8.6MG TAB TAKE 1 TABLET BY MOUTH TWICE DAILY NEEDED FOR SOFTENIN G STOOL HOLD FOR LOOSE STOOL/DI ARRHEA. ORAL 12/19/2024 [id number] Panchito HOYT 2024 28 [facility] DULOXETINE HCL 30MG CAP,EC TAKE THREE CAPSULES BY MOUTH ONCE A DAY FOR DEPRESSI ON DO NOT ABRUPTLY DISCONTI NUE MEDICATI ON. ORAL ACTIVE 04/11/2025 [id number] 5 Umu RODRIGUEZ [address] [facility] DULOXETINE HCL 30MG CAP,EC TAKE THREE CAPSULES BY MOUTH ONCE A DAY FOR DEPRESSI ON DO NOT ABRUPTLY DISCONTI NUE MEDICATI ON. ORAL DISCONT INUED 05/10/2025 [id number] 5 GENEVA DONNELLY [address] [facility] DULOXETINE HCL 30MG CAP,EC TAKE THREE CAPSULES BY MOUTH ONCE A DAY FOR DEPRESSI ON DO NOT ABRUPTLY DISCONTI NUE MEDICATI ON. ORAL DISCONT INUED 10/30/2024 [id number] 4 GENEVA DONNELLY [address] [facility] ERGOCALCIFE ROL 1,250MCG (50,000UNIT ) CAP TAKE ONE CAPSULE BY MOUTH EVERY WEEK FOR VITAMIN D DEFICIEN CY ORAL 01/19/2025 [id number] ELVIJw EGGY W 2024 12 [facility] FINASTERIDE 5MG TAB TAKE ONE TABLET BY MOUTH ONCE A DAY SWALLOW WHOLE, DO NOT CRUSH, SPLIT, OR CHEW. ORAL SUSPEND ED 08/11/2025 [id number] 5 Umu RODRIGUEZ UZANNE 2024 90 [facility] FINASTERIDE 5MG TAB TAKE ONE TABLET BY MOUTH ONCE A DAY SWALLOW WHOLE, DO NOT CRUSH, SPLIT, OR CHEW. ORAL DISCONT INUED 07/31/2024 [id number] LIGIA RANGEL ONKEISHA R 2022 90 [facility] FISH OIL 1000MG (500MG DHA/EPA) CAP,ORAL TAKE 1 CAPSULE ORALLY TWICE A DAY WITH MEALS ORAL ACTIVE ELVIS OVIEDO MD 2012 [facility] FLUTICASONE PROPIONATE 50MCG/SPRAY SOLN,NASAL, 16GM INSTILL 2 SPRAYS IN NOSTRIL( S) ONCE A DAY FOR RHINITIS (MUST BE USED DIRECTED FOR MINIMUM OF 21 DAYS TO PROVIDE ADEQUATE BENEFITS ) NASAL ACTIVE 03/28/2026 [id number] 5 ME GRETCHEN GARY 2024 3 [facility] FLUTICASONE PROPIONATE 50MCG/SPRAY SOLN,NASAL, 16GM INSTILL 2 SPRAYS IN NOSTRIL( S) ONCE A DAY FOR RHINITIS (MUST BE USED DIRECTED FOR MINIMUM OF 21 DAYS TO PROVIDE ADEQUATE BENEFITS ) NASAL DISCONT INUED 01/05/2025 [id number] 5 JENNIFERS UZANNE 2023 3 [facility] HYDROCHLORO THIAZIDE 25MG TAB TAKE ONE TABLET BY MOUTH ONCE A DAY FOR HIGH BLOOD PRESSURE ORAL SUSPEND ED 08/16/2025 [id number] 5 JENNIFERS UZANNE 2024 90 [facility] HYDROCHLORO THIAZIDE 25MG TAB TAKE ONE TABLET BY MOUTH ONCE A DAY FOR HIGH BLOOD PRESSURE ORAL DISCONT INUED 08/31/2024 [id number] 4 Umu RODRIGUEZ UZANNE 2023 90 [facility] LIDOCAINE 5% PATCH APPLY 2 PATCHES TO SKIN SITE ONCE A DAY FOR LOCAL ANESTHES IA APPLY PATCH TO KNEE(S) AND PRESS FIRMLY FOR 10-15 SECONDS. KEEP ON FOR 12 HOURS THEN REMOVE PATCH FOR 12 HOURS. TRANSD ERMAL ACTIVE 04/21/2025 [id number] BASILIO HILLS STIN A 2024 60 [facility] LIDOCAINE 5% PATCH APPLY 1 PATCH TO SKIN SITE ONCE A DAY FOR LOCAL ANESTHES IA APPLY PATCH TO KNEE(S) AND PRESS FIRMLY FOR 10-15 SECONDS. KEEP ON FOR 12 HOURS THEN REMOVE PATCH FOR 12 HOURS. TRANSD ERMAL 02/24/2025 [id number] BASILIO HILLS STIN A [address] [facility] LISINOPRIL 10MG TAB TAKE ONE TABLET BY MOUTH ONCE A DAY FOR HIGH BLOOD PRESSURE ORAL SUSPEND ED 02/14/2026 [id number] VIRAL PEREZ 2024 90 [facility] LISINOPRIL 20MG TAB TAKE ONE TABLET BY MOUTH ONCE A DAY FOR HIGH BLOOD PRESSURE ORAL DISCONT INUED (EDIT) 11/18/2025 [id number] 5 Umu RODRIGUEZ UZACLAUDETTEE 2024 90 [facility] LISINOPRIL 20MG TAB TAKE ONE-HALF TABLET BY MOUTH ONCE A DAY FOR HIGH BLOOD PRESSURE ORAL DISCONT INUED (EDIT) 01/05/2025 [id number] 5 Umu RODRIGUEZ UZAKAIN 2023 45 [facility] MELOXICAM 7.5MG TAB TAKE ONE TABLET BY MOUTH ONCE A DAY ORAL ACTIVE 06/25/2025 [id number] 5 Panchito HOYT 2024 90 [facility] MELOXICAM 7.5MG TAB TAKE ONE TABLET BY MOUTH ONCE A DAY ORAL DISCONT INUED 02/17/2025 [id number] Panchito HOYT 2024 90 [facility] MUPIROCIN 2% OINT,TOP APPLY LIBERALL Y TO AFFECTED AREA(S) TWICE A DAY FOR BACTERIA L INFECTIO N EXTERNAL USE ONLY. EXTERNAL USE ONLY. APPLY TO BOTH NOSTRILS TWICE DAILY FOR FIVE DAYS BEFORE SURGERY WITH A SEPERATE Q-TIP TO EACH NARE. EXTERNAL USE ONLY. EXTERNAL USE ONLY. APPLY TO BOTH NOSTRILS TWICE DAILY FOR FIVE DAYS BEFORE SURGERY WITH A SEPERATE Q-TIP TO EACH NARE. TOPICA L ACTIVE 04/10/2025 [id number] KELLY SOLOMON 2024 22 [facility] MUPIROCIN 2% OINT,TOP APPLY SPARINGL Y TO AFFECTED AREA(S) TWICE A DAY SURGICAL INDICATI ON EXTERNAL USE ONLY. APPLY TO EACH NOSTRIL TWICE EVERY DAY (USE SEPARATE COTTON TIP FOR EACH NOSTRIL ONCE IN THE MORNING AND ONCE IN THE EVENING) FOR (5) DAYS LEADING UP TO YOUR SURGERY. THEN APPLY IT ONE TIME ON THE MORNING OF SURGERY. EXTERNAL USE ONLY. APPLY TO EACH NOSTRIL TWICE EVERY DAY (USE SEPARATE COTTON TIP FOR EACH NOSTRIL ONCE IN THE MORNING AND ONCE IN THE EVENING) FOR (5) DAYS LEADING UP TO YOUR SURGERY. THEN APPLY IT ONE TIME ON THE MORNING OF SURGERY. TOPICA L 12/14/2024 [id number] Jw BOLES 2024 22 [facility] OXYCODONE HCL 5MG TAB TAKE ONE TABLET BY MOUTH EVERY 4 HOURS NEEDED FOR POST-OPE RATIVE PAIN SECOND LINE NEEDED FOR PAIN. MAY CAUSE CONSTIPA TION ORAL 12/19/2024 [id number] Panchito HOYT 2024 30 [facility] SODIUM FLUORIDE 1.1% TOOTHPASTE USE DIRECTED BY MOUTH TWICE A DAY FOR DENTAL CARIES TOOTHPAS TE (DO NOT SWALLOW) APPLY A PEA-SIZE D AMOUNT OF THE PASTE TO A TOOTHBRU SH AND BRUSH THOROUGH LY FOR TWO MINUTES, AT MORNING AND AT NIGHT; SPIT, DO NOT RINSE. DO NOT EAT, DRINK, OR RINSE FOR 30 MINUTES AFTER USE. TOOTHPAS TE (DO NOT SWALLOW) APPLY A PEA-SIZE D AMOUNT OF THE PASTE TO A TOOTHBRU SH AND BRUSH THOROUGH LY FOR TWO MINUTES, AT MORNING AND AT NIGHT; SPIT, DO NOT RINSE. DO NOT EAT, DRINK, OR RINSE FOR 30 MINUTES AFTER USE. ORAL ACTIVE 09/24/2025 [id number] 5 Umu MITCHELL ABLE A 2024 51 [facility] SUNSCREEN 30-50/PHYSI EDMUND BLOCK/PABA- FREE, COMBO LOTION APPLY LIBERALL Y TO AFFECTED AREA(S) DIRECTED FOR SKIN PROTECTI ON (EXTERNA L USE ONLY) TOPICA L 03/08/2025 [id number] JENNIFERS UZANNE 2023 120 [facility] TAMSULOSIN HCL 0.4MG CAP TAKE ONE CAPSULE BY MOUTH EVERY EVENING FOR BENIGN PROSTATI C HYPERPLA RELL APPROXIM ATELY 30 MINUTES AFTER THE SAME MEAL EACH DAY ORAL SUSPEND ED 08/16/2025 [id number] 5 JENNIFERS UZANNE 2024 90 [facility] TAMSULOSIN HCL 0.4MG CAP TAKE ONE CAPSULE BY MOUTH EVERY EVENING FOR BENIGN PROSTATI C HYPERPLA RELL APPROXIM ATELY 30 MINUTES AFTER THE SAME MEAL EACH DAY ORAL DISCONT INUED 09/23/2024 [id number] DEPAULO,S UZANNE 2023 90 [facility] TRAMADOL HCL 50MG TAB TAKE 1 TABLET BY MOUTH FOUR TIMES A DAY NEEDED FOR PAIN FIRST LINE NEEDED FOR PAIN ORAL 12/19/2024 [id number] Panchito HOYT 2024 42 [facility] TRAZODONE HCL 50MG TAB TAKE ONE-HALF TABLET BY MOUTH AT BEDTIME FOR SLEEP ORAL ACTIVE 04/11/2025 [id number] 5 Umu RODRIGUEZ [address] [facility] TRAZODONE HCL 50MG TAB TAKE ONE-HALF TABLET BY MOUTH AT BEDTIME FOR SLEEP ORAL DISCONT INUED 05/10/2025 [id number] 5 GENEVA DONNELLY [address] [facility] TRAZODONE HCL 50MG TAB TAKE ONE-HALF TABLET BY MOUTH AT BEDTIME FOR SLEEP [facility] 10/30/2024 [id number] 4 GENEVA DONNELLY [address] [facility] Immunizations Combined list of available immunizations from the Department of Defense and Veterans Affairs facilities. Immunization Series Date Given Administered By Site Reaction Lot Number CVX Code Drug Valve Assembler Status Comments Source TDAP 2024 PETRONA BRAUN A RIGHT DELTO ID [id number] 115 complet ed Completed Series, [facility] COVID-19 (PFIZER), MRNA, LNP-S, PF, CLIFF-SUCROSE, 30 MCG/0.3 ML (AGES 12+ YEARS) 2023 ARLEN SPENCER IA RIGHT DELTO ID [id number] 309 complet ed [facility] INFLUENZA, HIGH-DOSE, TRIVALENT, PF 2023 ARLEN SPENCER IA LEFT DELTO ID [id number] 135 complet ed [facility] COVID-19 (MODERNA), MRNA, LNP-S, PF, 50 MCG/0.5 ML (AGES 12+ YEARS) 1 2022 RASAHD CARTER RIGHT DELTO ID [id number] 312 complet ed [facility] AT [facility] INFLUENZA, HIGH-DOSE, QUADRIVALENT 2022 RASHAD CARTER LEFT DELTO ID [id number] 197 complet ed [facility] INFLU[facility] VACCINE, QUADRIVALENT, ADJUVANTED 2021 205 complet ed [facility] TD (ADULT), 5 LF TETANUS TOXOID, PRESERVATIVE FREE, ADSORBED 1 2021 113 complet ed HISTORICA L INFORMATI ON - FROM OTHER REGISTRY, [facility] COVID-19 (MODERNA), MRNA, LNP-S, PF, 100 MCG OR 50 MCG DOSE 3 2020 207 complet ed MOD; [id number]; 2 [facility] INFLUENZA VACCINE, QUADRIVALENT, ADJUVANTED 2020 205 complet ed [facility] COVID-19 (MODERNA), MRNA, LNP-S, PF, 100 MCG/0.5 ML DOSE 2 2020 207 complet ed MOD; [id number]; 1 [facility] COVID-19 (MODERNA), MRNA, LNP-S, PF, 100 MCG/0.5 ML DOSE 1 2020 207 complet ed MOD; [id number]; 1 [facility] INFLUENZA, HIGH-DOSE, QUADRIVALENT 2019 197 complet ed [facility] INFLUENZA, SEASONAL, INJECTABLE 2018 141 complet ed Completed Series, [facility] INFLUENZA, SEASONAL, INJECTABLE, PRESERVATIVE FREE 2018 140 complet ed Completed Series, [facility] PNEUMOCOCCAL POLYSACCHARID E [id number] 2018 33 complet ed [facility] INFLUENZA, SEASONAL, INJECTABLE 2017 141 complet ed Booster for Series, [facility] INFLUENZA, SEASONAL, INJECTABLE 2016 141 complet ed Completed Series, [facility] PNEUMOCOCCAL CONJUGATE PCV 13 2016 133 complet ed Given in left arm [facility] INFLUENZA, SEASONAL, INJECTABLE 2015 141 complet ed Completed Series, [facility] INFLUENZA, UNSPECIFIED FORMULATION 2015 88 complet ed [facility] TDAP 2 2015 115 complet ed HISTORICA L INFORMATI ON - FROM OTHER REGISTRY, [facility] INFLUENZA, SEASONAL, INJECTABLE 2014 141 complet ed Completed Series, [facility] Long [facility] INFLUENZA, UNSPECIFIED FORMULATION 2014 88 complet ed [facility] [place] TETANUS+DIPHT H TOXOID/ACELL PERTUSSIS (HISTORICAL) 2013 115 complet ed Completed Series, [facility] H1N1 (HISTORICAL) 2013 128 complet ed [facility] INFLUENZA (HISTORICAL) 2013 88 complet ed Completed Series, CODY Mercedes [facility] INFLUENZA, SPLIT VIRUS, TRIVALENT, PRESERVATIVE 2012 141 complet ed HISTORICA L INFORMATI ON - FROM OTHER REGISTRY, CODY [facility] H1N1 (HISTORICAL) 2012 128 complet ed CODY Mercedes [facility] INFLUENZA, UNSPECIFIED FORMULATION 2012 88 complet ed CODY [place] [facility] INFLUENZA, SPLIT VIRUS, TRIVALENT, PRESERVATIVE 1 2012 141 complet ed HISTORICA L INFORMATI ON - FROM OTHER REGISTRY, [facility] INFLUENZA (HISTORICAL) 2011 88 complet ed Completed Series, [facility] INFLUENZA (HISTORICAL) 2010 88 complet ed Completed Series, [facility] NOVEL INFLUENZA-H1N 1-09, ALL FORMULATIONS 2010 128 complet ed Right Arm [facility] PNEUMOCOCCAL POLYSACCHARID E PPV23 2009 33 complet ed Completed Series, Given in right arm [facility] INFLUENZA, UNSPECIFIED FORMULATION 2009 88 complet ed Right Arm C[facility] NOVEL INFLUENZA-H1N 1-09, ALL FORMULATIONS 2009 128 complet ed Right Arm [facility] INFLUENZA (HISTORICAL) 2008 88 complet ed Completed Series, CODY [facility] Results Combined list of recent chemistry, hematology and other laboratory results from Department of [employer] and [employer], ranging from 15 months to all on record, depending upon the facility. Order Name Results Value Reference Range Date Interpretation Specimen Comments Source CBC LEUKOCYTES [#/VOLUME] IN BLOOD BY AUTOMATED COUNT 7.3 10*3/uL 3.6 - 11.2 02/13 Specimen Type: BLOOD No comment entered. Ordering Provider: EDMOND GRIFFIN IN W Report Released Date/Time: Jan 11, 2025 12:19 PM Reporting Lab: [place] [address] [facility] [address] Performing Lab: [address] [address] [facility] CBC ERYTHROCYT ES [#/VOLUME] IN BLOOD BY AUTOMATED COUNT 4.24 10*6/uL 4.10 - 5.70 02/13 Specimen Type: BLOOD No comment entered. Ordering Provider: EDMOND GRIFFIN IN W Report Released Date/Time: Jan 11, 2025 12:19 PM Reporting Lab: [address] [address] Performing Lab: [address] [address] [facility] CBC HEMOGLOBIN [MASS/VOLU ME] IN BLOOD 12.2 g/dL 13.1 - 16.8 02/13 L Specimen Type: BLOOD No comment entered. Ordering Provider: EDMOND GRIFFIN IN W Report Released Date/Time: Jan 11, 2025 12:19 PM Reporting Lab: [address] [address] Performing Lab: [address] [address] [facility] CBC HEMATOCRIT [VOLUME FRACTION] OF BLOOD 37.1 38.2 - 48.4 02/13 L Specimen Type: BLOOD No comment entered. Ordering Provider: EDMOND GRIFFIN IN W Report Released Date/Time: Jan 11, 2025 12:19 PM Reporting Lab: [address] [address] Performing Lab: [place] [phone] [facility] CBC MCV [ENTITIC VOLUME] BY AUTOMATED COUNT 87.5 fL 80.0 - 100.0 02/13 Specimen Type: BLOOD No comment entered. Ordering Provider: EDMOND GRIFFIN IN W Report Released Date/Time: Jan 11, 2025 12:19 PM Reporting Lab: [address] [address] Performing Lab: [address] [address] [facility] CBC MCH [ENTITIC MASS] BY AUTOMATED COUNT 28.8 pg 27.0 - 34.0 02/13 Specimen Type: BLOOD No comment entered. Ordering Provider: EDMOND GRIFFIN IN W Report Released Date/Time: Jan 11, 2025 12:19 PM Reporting Lab: [address] [address] Performing Lab: [address] [address] [facility] CBC MCHC [MASS/VOLU ME] BY AUTOMATED COUNT 32.9 g/dL 33.0 - 36.0 02/13 L Specimen Type: BLOOD No comment entered. Ordering Provider: EDMOND GRIFFIN IN W Report Released Date/Time: Jan 11, 2025 12:19 PM Reporting Lab: [address] [address] Performing Lab: [address] [address] [facility] CBC PLATELETS [#/VOLUME] IN BLOOD BY AUTOMATED COUNT 282 10*3/uL 150 - 400 02/13 Specimen Type: BLOOD No comment entered. Ordering Provider: EDMOND GRIFFIN IN W Report Released Date/Time: Jan 11, 2025 12:19 PM Reporting Lab: [address] [address] Performing Lab: [address] [address] [facility] CBC PLATELET MEAN VOLUME [ENTITIC VOLUME] IN BLOOD BY AUTOMATED COUNT 8.8 fL 7.5 - 11.2 02/13 Specimen Type: BLOOD No comment entered. Ordering Provider: EDMOND GRIFFIN W Report Released Date/Time: Jan 11, 2025 12:19 PM Reporting Lab: [place] [address] [facility] [address] Performing Lab: [place] [address] [facility] [address] [facility] CBC ERYTHROCYT E DISTRIBUTI ON WIDTH [RATIO] BY AUTOMATED COUNT 13.4 11.8 - 15.1 02/13 Specimen Type: BLOOD No comment entered. Ordering Provider: EDMOND GRIFFIN IN W Report Released Date/Time: Jan 11, 2025 12:19 PM Reporting Lab: [place] [address] [facility] [address] Performing Lab: [place] [address] [facility] [address] [facility] CBC LYMPHOCYTE S/100 LEUKOCYTES IN BLOOD BY AUTOMATED COUNT 33 02/13 Specimen Type: BLOOD No comment entered. Ordering Provider: EDMOND GRIFFIN W Report Released Date/Time: Jan 11, 2025 12:19 PM Reporting Lab: [place] [address] [facility] [address] Performing Lab: [place] [address] [facility] [address] [facility] CBC MONOCYTES/ 100 LEUKOCYTES IN BLOOD BY AUTOMATED COUNT 10 02/13 Specimen Type: BLOOD No comment entered. Ordering Provider: EDMOND GRIFFIN IN W Report Released Date/Time: Jan 11, 2025 12:19 PM Reporting Lab: [place] [address] [facility] [address] Performing Lab: [place] [address] [facility] [address] [facility] CBC NEUTROPHIL S/100 LEUKOCYTES IN BLOOD BY AUTOMATED COUNT 55 02/13 Specimen Type: BLOOD No comment entered. Ordering Provider: EDMOND GRIFFIN IN W Report Released Date/Time: Jan 11, 2025 12:19 PM Reporting Lab: [facility] [address] [place] [address] Performing Lab: [facility] [address] [place] [address] [facility] CBC EOSINOPHIL S/100 LEUKOCYTES IN BLOOD BY AUTOMATED COUNT 1 02/13 Specimen Type: BLOOD No comment entered. Ordering Provider: EDMOND GRIFFIN IN W Report Released Date/Time: Jan 11, 2025 12:19 PM Reporting Lab: [address] [address] Performing Lab: [address] [address] [facility] CBC BASOPHILS/ 100 LEUKOCYTES IN BLOOD BY AUTOMATED COUNT 1 02/13 Specimen Type: BLOOD No comment entered. Ordering Provider: EDMOND GRIFFIN IN W Report Released Date/Time: Jan 11, 2025 12:19 PM Reporting Lab: [address] [address] Performing Lab: [address] [address] [facility] CBC LYMPHOCYTE S [#/VOLUME] IN BLOOD BY AUTOMATED COUNT 2.38 10*3/uL 0.77 - 4.50 02/13 Specimen Type: BLOOD No comment entered. Ordering Provider: EDMOND GRIFFIN IN W Report Released Date/Time: Jan 11, 2025 12:19 PM Reporting Lab: [address] [address] Performing Lab: [address] [address] [facility] CBC MONOCYTES [#/VOLUME] IN BLOOD BY AUTOMATED COUNT 0.75 10*3/uL 0.19 - 0.80 02/13 Specimen Type: BLOOD No comment entered. Ordering Provider: EDMOND GRIFFIN IN W Report Released Date/Time: Jan 11, 2025 12:19 PM Reporting Lab: [address] [address] Performing Lab: [address] [address] [facility] CBC NEUTROPHIL S [#/VOLUME] IN BLOOD BY AUTOMATED COUNT 4.04 10*3/uL 2.10 - 8.00 02/13 Specimen Type: BLOOD No comment entered. Ordering Provider: EDMOND GRIFFIN IN W Report Released Date/Time: Jan 11, 2025 12:19 PM Reporting Lab: [address] [address] Performing Lab: [address] [address] [facility] CBC EOSINOPHIL S [#/VOLUME] IN BLOOD BY AUTOMATED COUNT 0.09 10*3/uL 0.00 - 0.60 02/13 Specimen Type: BLOOD No comment entered. Ordering Provider: EDMOND GRIFFIN IN W Report Released Date/Time: Jan 11, 2025 12:19 PM Reporting Lab: [address] [address] Performing Lab: [address] [address] [facility] CBC BASOPHILS [#/VOLUME] IN BLOOD BY AUTOMATED COUNT 0.05 10*3/uL 0.00 - 0.20 02/13 Specimen Type: BLOOD No comment entered. Ordering Provider: EDMOND GRIFFIN IN W Report Released Date/Time: Jan 11, 2025 12:19 PM Reporting Lab: [address] [address] Performing Lab: [address] [address] [facility] COMPREHE NSIVE METABOLI C PANEL CREATININE [MASS/VOLU ME] IN SERUM OR PLASMA 1.09 mg/dL 0.7 - 1.3 02/13 Specimen Type: PLASMA Comment: No hemolysis noted. Ordering Provider: EDMOND GRIFFIN W Report Released Date/Time: Jan 11, 2025 12:19 PM Reporting Lab: [place] [address] [facility] [address] Performing Lab: [place] [address] [facility] [address] [facility] COMPREHE NSIVE METABOLI C PANEL UREA NITROGEN [MASS/VOLU ME] IN SERUM OR PLASMA 21.0 mg/dL 9.0 - 25.0 02/13 Specimen Type: PLASMA Comment: No hemolysis noted. Ordering Provider: EDMOND GRIFFIN IN W Report Released Date/Time: Jan 11, 2025 12:19 PM Reporting Lab: [address] [address] Performing Lab: [place] [address] [facility] [address] [facility] COMPREHE NSIVE METABOLI C PANEL GLUCOSE [MASS/VOLU ME] IN SERUM OR PLASMA 95 mg/dL 72 - 99 02/13 Specimen Type: PLASMA Comment: No hemolysis noted. Ordering Provider: EDMOND GRIFFIN IN W Report Released Date/Time: Jan 11, 2025 12:19 PM Reporting Lab: [address] [address] Performing Lab: [place] [address] [facility] [address] [facility] COMPREHE NSIVE METABOLI C PANEL SODIUM [MOLES/VOL UME] IN SERUM OR PLASMA 127 meq/L 136 - 145 02/13 L Specimen Type: PLASMA Comment: No hemolysis noted. Ordering Provider: EDMOND GRIFFIN W Report Released Date/Time: Jan 11, 2025 12:19 PM Reporting Lab: [place] [address] [facility] [address] Performing Lab: [address] [place] [address] [facility] COMPREHE NSIVE METABOLI C PANEL POTASSIUM [MOLES/VOL UME] IN SERUM OR PLASMA 5.0 meq/L 3.5 - 5 02/13 Specimen Type: PLASMA Comment: No hemolysis noted. Ordering Provider: EDMOND GRIFFIN W Report Released Date/Time: Jan 11, 2025 12:19 PM Reporting Lab: [place] [address] [facility] [address] Performing Lab: [place] [address] [facility] [address] [facility] COMPREHE NSIVE METABOLI C PANEL CHLORIDE [MOLES/VOL UME] IN SERUM OR PLASMA 93 meq/L 98 - 107 02/13 L Specimen Type: PLASMA Comment: No hemolysis noted. Ordering Provider: EDMOND GRIFFIN IN W Report Released Date/Time: Jan 11, 2025 12:19 PM Reporting Lab: [place] [address] [facility] [address] Performing Lab: [place] [address] [facility] [address] [facility] COMPREHE NSIVE METABOLI C PANEL CARBON DIOXIDE, TOTAL [MOLES/VOL UME] IN SERUM OR PLASMA 27 meq/L 22 - 31 02/13 Specimen Type: PLASMA Comment: No hemolysis noted. Ordering Provider: EDMOND GRIFFIN W Report Released Date/Time: Jan 11, 2025 12:19 PM Reporting Lab: [place] [address] [facility] [address] Performing Lab: [place] [address] [facility] [address] [facility] COMPREHE NSIVE METABOLI C PANEL CALCIUM [MASS/VOLU ME] IN SERUM OR PLASMA 9.6 mg/dL 8.4 - 10.4 02/13 Specimen Type: PLASMA Comment: No hemolysis noted. Ordering Provider: EDMOND GRIFFIN IN W Report Released Date/Time: Jan 11, 2025 12:19 PM Reporting Lab: [facility] [address] [facility] [address] Performing Lab: [place] [address] [facility] [address] [facility] COMPREHE NSIVE METABOLI C PANEL PROTEIN [MASS/VOLU ME] IN SERUM OR PLASMA 6.9 g/dL 6 - 8.6 02/13 Specimen Type: PLASMA Comment: No hemolysis noted. Ordering Provider: EDMOND GRIFFIN IN W Report Released Date/Time: Jan 11, 2025 12:19 PM Reporting Lab: [address] [address] Performing Lab: [place] [address] [facility] [address] [facility] COMPREHE NSIVE METABOLI C PANEL ALBUMIN [MASS/VOLU ME] IN SERUM OR PLASMA 4.1 g/dL 3.4 - 5 02/13 Specimen Type: PLASMA Comment: No hemolysis noted. Ordering Provider: EDMOND GRIFFIN IN W Report Released Date/Time: Jan 11, 2025 12:19 PM Reporting Lab: [address] [address] Performing Lab: [place] [address] [facility] [address] [facility] COMPREHE NSIVE METABOLI C PANEL BILIRUBIN. TOTAL [MASS/VOLU ME] IN SERUM OR PLASMA 0.5 mg/dL 0.2 - 1.2 02/13 Specimen Type: PLASMA Comment: No hemolysis noted. Ordering Provider: EDMOND GRIFFIN IN W Report Released Date/Time: Jan 11, 2025 12:19 PM Reporting Lab: [address] [address] Performing Lab: [address] [address] [facility] COMPREHE NSIVE METABOLI C PANEL ALKALINE PHOSPHATAS E [ENZYMATIC ACTIVITY/V OLUME] IN SERUM OR PLASMA 90 U/L 40 - 150 02/13 Specimen Type: PLASMA Comment: No hemolysis noted. Ordering Provider: EDMOND GRIFFIN W Report Released Date/Time: Jan 11, 2025 12:19 PM Reporting Lab: [place] [address] [facility] [address] Performing Lab: [place] [address] [facility] [address] [facility] COMPREHE NSIVE METABOLI C PANEL ASPARTATE AMINOTRANS FERASE [ENZYMATIC ACTIVITY/V OLUME] IN SERUM OR PLASMA 67 U/L 5 - 34 02/13 H Specimen Type: PLASMA Comment: No hemolysis noted. Ordering Provider: EDMOND GRIFFIN IN W Report Released Date/Time: Jan 11, 2025 12:19 PM Reporting Lab: [place] [address] [facility] [address] Performing Lab: [place] [address] [facility] [address] [facility] COMPREHE NSIVE METABOLI C PANEL ALANINE AMINOTRANS FERASE [ENZYMATIC ACTIVITY/V OLUME] IN SERUM OR PLASMA 33 U/L 8 - 40 02/13 Specimen Type: PLASMA Comment: No hemolysis noted. Ordering Provider: EDMOND GRIFFIN W Report Released Date/Time: Jan 11, 2025 12:19 PM Reporting Lab: [place] [address] [facility] [address] Performing Lab: [place] [address] [facility] [address] [facility] COMPREHE NSIVE METABOLI C PANEL GLOMERULAR FILTRATION RATE/1.73 SQ M.PREDICTE D [VOLUME RATE/AREA] IN SERUM, PLASMA OR BLOOD BY CREATININE -BASED FORMULA (CKD-EPI 2020) 69.0 60 02/13 Specimen Type: PLASMA Comment: No hemolysis noted. Ordering Provider: EDMOND GRIFFIN W Report Released Date/Time: Jan 11, 2025 12:19 PM Reporting Lab: [place] [address] [facility] [address] Performing Lab: [address] [address] [facility] LDH LACTATE DEHYDROGEN ASE [ENZYMATIC ACTIVITY/V OLUME] IN SERUM OR PLASMA 325 U/L 125 - 243 02/13 H Specimen Type: PLASMA Comment: No hemolysis noted. Ordering Provider: EDMOND GRIFFIN IN W Report Released Date/Time: Jan 11, 2025 12:19 PM Reporting Lab: [address] [address] Performing Lab: [address] [phone] CBC LEUKOCYTES [#/VOLUME] IN BLOOD BY AUTOMATED COUNT 6.4 10*3/uL 3.6 - 11.2 01/10 Specimen Type: BLOOD No comment entered. Ordering Provider: EDMOND GRIFFIN IN W Report Released Date/Time: Jan 11, 2024 01:34 PM Reporting Lab: [address] [address] Performing Lab: [address] [phone] [place] [address] CBC ERYTHROCYT ES [#/VOLUME] IN BLOOD BY AUTOMATED COUNT 4.39 10*6/uL 4.10 - 5.70 01/10 Specimen Type: BLOOD No comment entered. Ordering Provider: EDMOND GRIFFIN IN W Report Released Date/Time: Jan 11, 2024 01:34 PM Reporting Lab: [address] [address] Performing Lab: [address] [address] CBC HEMOGLOBIN [MASS/VOLU ME] IN BLOOD 12.9 g/dL 13.1 - 16.8 01/10 L Specimen Type: BLOOD No comment entered. Ordering Provider: EDMOND GRIFFIN IN W Report Released Date/Time: Jan 11, 2024 01:34 PM Reporting Lab: [facility] [address] [address] Performing Lab: [address] [address] [facility] CBC HEMATOCRIT [VOLUME FRACTION] OF BLOOD 38.5 38.2 - 48.4 01/10 Specimen Type: BLOOD No comment entered. Ordering Provider: EDMOND GRIFFIN IN W Report Released Date/Time: Jan 11, 2024 01:34 PM Reporting Lab: [address] [address] Performing Lab: [address] [address] [facility] CBC MCV [ENTITIC VOLUME] BY AUTOMATED COUNT 87.7 fL 80.0 - 100.0 01/10 Specimen Type: BLOOD No comment entered. Ordering Provider: EDMOND GRIFFIN IN W Report Released Date/Time: Jan 11, 2024 01:34 PM Reporting Lab: [address] [address] Performing Lab: [address] [address] [facility] CBC MCH [ENTITIC MASS] BY AUTOMATED COUNT 29.4 pg 27.0 - 34.0 01/10 Specimen Type: BLOOD No comment entered. Ordering Provider: EDMOND GRIFFIN IN W Report Released Date/Time: Jan 11, 2024 01:34 PM Reporting Lab: [address] [address] Performing Lab: [address] [address] [facility] CBC MCHC [MASS/VOLU ME] BY AUTOMATED COUNT 33.5 g/dL 33.0 - 36.0 01/10 Specimen Type: BLOOD No comment entered. Ordering Provider: EDMOND GRIFFIN IN W Report Released Date/Time: Jan 11, 2024 01:34 PM Reporting Lab: [address] [address] Performing Lab: [address] [address] [facility] CBC PLATELETS [#/VOLUME] IN BLOOD BY AUTOMATED COUNT 278 10*3/uL 150 - 400 01/10 Specimen Type: BLOOD No comment entered. Ordering Provider: EDMOND GRIFFIN IN W Report Released Date/Time: Jan 11, 2024 01:34 PM Reporting Lab: [address] [address] Performing Lab: [address] [address] [facility] CBC PLATELET MEAN VOLUME [ENTITIC VOLUME] IN BLOOD BY AUTOMATED COUNT 8.5 fL 7.5 - 11.2 01/10 Specimen Type: BLOOD No comment entered. Ordering Provider: EDMOND GRIFFIN IN W Report Released Date/Time: Jan 11, 2024 01:34 PM Reporting Lab: [address] [address] Performing Lab: [address] [address] [facility] CBC ERYTHROCYT E DISTRIBUTI ON WIDTH [RATIO] BY AUTOMATED COUNT 12.9 11.8 - 15.1 01/10 Specimen Type: BLOOD No comment entered. Ordering Provider: EDMOND GRIFFIN IN W Report Released Date/Time: Jan 11, 2024 01:34 PM Reporting Lab: [address] [address] Performing Lab: [address] [address] [facility] CBC LYMPHOCYTE S/100 LEUKOCYTES IN BLOOD BY AUTOMATED COUNT 30 01/10 Specimen Type: BLOOD No comment entered. Ordering Provider: EDMOND GRIFFIN IN W Report Released Date/Time: Jan 11, 2024 01:34 PM Reporting Lab: [address] [address] Performing Lab: [facility] [address] [facility] [address] [facility] CBC MONOCYTES/ 100 LEUKOCYTES IN BLOOD BY AUTOMATED COUNT 9 01/10 Specimen Type: BLOOD No comment entered. Ordering Provider: EDMOND GRIFFIN W Report Released Date/Time: Jan 11, 2024 01:34 PM Reporting Lab: [facility] [address] [facility] [address] Performing Lab: [facility] [address] [facility] [address] [facility] CBC NEUTROPHIL S/100 LEUKOCYTES IN BLOOD BY AUTOMATED COUNT 58 01/10 Specimen Type: BLOOD No comment entered. Ordering Provider: EDMOND GRIFFIN W Report Released Date/Time: Jan 11, 2024 01:34 PM Reporting Lab: [place] [address] [facility] [address] Performing Lab: [facility] [address] [facility] [address] [facility] CBC EOSINOPHIL S/100 LEUKOCYTES IN BLOOD BY AUTOMATED COUNT 3 01/10 Specimen Type: BLOOD No comment entered. Ordering Provider: EDMOND GRIFFIN W Report Released Date/Time: Jan 11, 2024 01:34 PM Reporting Lab: [place] [address] [facility] [address] Performing Lab: [facility] [address] [facility] [address] [facility] CBC BASOPHILS/ 100 LEUKOCYTES IN BLOOD BY AUTOMATED COUNT 1 01/10 Specimen Type: BLOOD No comment entered. Ordering Provider: EDMOND GRIFFIN W Report Released Date/Time: Jan 11, 2024 01:34 PM Reporting Lab: [facility] [address] [facility] [address] Performing Lab: [facility] [address] [facility] [address] [facility] CBC LYMPHOCYTE S [#/VOLUME] IN BLOOD BY AUTOMATED COUNT 1.90 10*3/uL 0.77 - 4.50 01/10 Specimen Type: BLOOD No comment entered. Ordering Provider: EDMOND GRIFFIN W Report Released Date/Time: Jan 11, 2024 01:34 PM Reporting Lab: [address] [address] Performing Lab: [address] [address] [facility] CBC MONOCYTES [#/VOLUME] IN BLOOD BY AUTOMATED COUNT 0.55 10*3/uL 0.19 - 0.80 01/10 Specimen Type: BLOOD No comment entered. Ordering Provider: EDMOND GRIFFIN IN W Report Released Date/Time: Jan 11, 2024 01:34 PM Reporting Lab: [address] [address] Performing Lab: [address] [address] [facility] CBC NEUTROPHIL S [#/VOLUME] IN BLOOD BY AUTOMATED COUNT 3.71 10*3/uL 2.10 - 8.00 01/10 Specimen Type: BLOOD No comment entered. Ordering Provider: EDMOND GRIFFIN IN W Report Released Date/Time: Jan 11, 2024 01:34 PM Reporting Lab: [address] [address] Performing Lab: [address] [address] [facility] CBC EOSINOPHIL S [#/VOLUME] IN BLOOD BY AUTOMATED COUNT 0.18 10*3/uL 0.00 - 0.60 01/10 Specimen Type: BLOOD No comment entered. Ordering Provider: EDMOND GRIFFIN IN Viral Report Released Date/Time: Jan 11, 2024 01:34 PM Reporting Lab: [address] [address] Performing Lab: [address] [address] [facility] CBC BASOPHILS [#/VOLUME] IN BLOOD BY AUTOMATED COUNT 0.05 10*3/uL 0.00 - 0.20 01/10 Specimen Type: BLOOD No comment entered. Ordering Provider: EDMOND GRIFFIN IN W Report Released Date/Time: Jan 11, 2024 01:34 PM Reporting Lab: [place] [address] [facility] [address] Performing Lab: [place] [address] [facility] [address] [facility] COMPREHE NSIVE METABOLI C PANEL CREATININE [MASS/VOLU ME] IN SERUM OR PLASMA 1.02 mg/dL 0.7 - 1.3 01/10 Specimen Type: PLASMA Comment: No hemolysis noted. Ordering Provider: EDMOND GRIFFIN IN W Report Released Date/Time: Jan 11, 2024 01:34 PM Reporting Lab: [place] [address] [place] [phone] Performing Lab: [place] [address] [facility] [address] [facility] COMPREHE NSIVE METABOLI C PANEL UREA NITROGEN [MASS/VOLU ME] IN SERUM OR PLASMA 17.9 mg/dL 9.0 - 25.0 01/10 Specimen Type: PLASMA Comment: No hemolysis noted. Ordering Provider: EDMOND GRIFFIN IN W Report Released Date/Time: Jan 11, 2024 01:34 PM Reporting Lab: [place] [address] [facility] [address] Performing Lab: [place] [address] [facility] [address] [facility] COMPREHE NSIVE METABOLI C PANEL GLUCOSE [MASS/VOLU ME] IN SERUM OR PLASMA 94 mg/dL 72 - 99 01/10 Specimen Type: PLASMA Comment: No hemolysis noted. Ordering Provider: EDMOND GRIFFIN IN W Report Released Date/Time: Jan 11, 2024 01:34 PM Reporting Lab: [place] [address] [place] [phone] Performing Lab: [facility] [address] [facility] [id number] [facility] COMPREHE NSIVE METABOLI C PANEL SODIUM [MOLES/VOL UME] IN SERUM OR PLASMA 127 meq/L 136 - 145 01/10 L Specimen Type: PLASMA Comment: No hemolysis noted. Ordering Provider: EDMOND GRIFFIN IN W Report Released Date/Time: Jan 11, 2024 01:34 PM Reporting Lab: [facility] [address] [facility] [phone] Performing Lab: [facility] [address] [place] [phone] [facility] COMPREHE NSIVE METABOLI C PANEL POTASSIUM [MOLES/VOL UME] IN SERUM OR PLASMA 4.5 meq/L 3.5 - 5 01/10 Specimen Type: PLASMA Comment: No hemolysis noted. Ordering Provider: EDMOND GRIFFIN IN W Report Released Date/Time: Jan 11, 2024 01:34 PM Reporting Lab: [facility] [address] [facility] [phone] Performing Lab: [facility] [address] [facility] [phone] [facility] COMPREHE NSIVE METABOLI C PANEL CHLORIDE [MOLES/VOL UME] IN SERUM OR PLASMA 91 meq/L 98 - 107 01/10 L Specimen Type: PLASMA Comment: No hemolysis noted. Ordering Provider: EDMOND GRIFFIN IN W Report Released Date/Time: Jan 11, 2024 01:34 PM Reporting Lab: [facility] [address] [facility] [phone] Performing Lab: [facility] [address] [facility] [phone] [facility] COMPREHE NSIVE METABOLI C PANEL CARBON DIOXIDE, TOTAL [MOLES/VOL UME] IN SERUM OR PLASMA 28 meq/L 22 - 31 01/10 Specimen Type: PLASMA Comment: No hemolysis noted. Ordering Provider: EDMOND GRIFFIN IN W Report Released Date/Time: Jan 11, 2024 01:34 PM Reporting Lab: [facility] [address] [facility] [phone] Performing Lab: [facility] [address] [facility] [address] [facility] COMPREHE NSIVE METABOLI C PANEL CALCIUM [MASS/VOLU ME] IN SERUM OR PLASMA 9.7 mg/dL 8.4 - 10.4 01/10 Specimen Type: PLASMA Comment: No hemolysis noted. Ordering Provider: EDMOND GRIFFIN IN W Report Released Date/Time: Jan 11, 2024 01:34 PM Reporting Lab: [facility] [address] [facility] [address] Performing Lab: [facility] [address] [facility] [address] [facility] COMPREHE NSIVE METABOLI C PANEL PROTEIN [MASS/VOLU ME] IN SERUM OR PLASMA 7.1 g/dL 6 - 8.6 01/10 Specimen Type: PLASMA Comment: No hemolysis noted. Ordering Provider: EDMOND GRIFFIN IN W Report Released Date/Time: Jan 11, 2024 01:34 PM Reporting Lab: [facility] [address] [facility] [address] Performing Lab: [facility] [address] [facility] [address] [facility] COMPREHE NSIVE METABOLI C PANEL ALBUMIN [MASS/VOLU ME] IN SERUM OR PLASMA 4.1 g/dL 3.4 - 5 01/10 Specimen Type: PLASMA Comment: No hemolysis noted. Ordering Provider: EDMOND GRIFFIN IN W Report Released Date/Time: Jan 11, 2024 01:34 PM Reporting Lab: [facility] [address] [facility] [address] Performing Lab: [facility] [address] [facility] [address] [facility] COMPREHE NSIVE METABOLI C PANEL BILIRUBIN. TOTAL [MASS/VOLU ME] IN SERUM OR PLASMA 0.6 mg/dL 0.2 - 1.2 01/10 Specimen Type: PLASMA Comment: No hemolysis noted. Ordering Provider: EDMOND GRIFFIN Report Released Date/Time: Jan 11, 2024 01:34 PM Reporting Lab: [place] [address] [place] [address] Performing Lab: [place] [address] COMPREHE NSIVE METABOLI C PANEL ALKALINE PHOSPHATAS E [ENZYMATIC ACTIVITY/V OLUME] IN SERUM OR PLASMA 92 U/L 40 - 150 01/10 Specimen Type: PLASMA Comment: No hemolysis noted. Ordering Provider: EDMOND GRIFFIN W Report Released Date/Time: Jan 11, 2024 01:34 PM Reporting Lab: [place] [address] Performing Lab: [place] [address] [facility] [phone] [place] [address] COMPREHE NSIVE METABOLI C PANEL ASPARTATE AMINOTRANS FERASE [ENZYMATIC ACTIVITY/V OLUME] IN SERUM OR PLASMA 34 U/L 5 - 34 01/10 Specimen Type: PLASMA Comment: No hemolysis noted. Ordering Provider: EDMOND GRIFFIN Report Released Date/Time: Jan 11, 2024 01:34 PM Reporting Lab: [place] [address] [facility] [address] Performing Lab: [place] [address] [facility] [phone] [place] [address] COMPREHE NSIVE METABOLI C PANEL ALANINE AMINOTRANS FERASE [ENZYMATIC ACTIVITY/V OLUME] IN SERUM OR PLASMA 26 U/L 8 - 40 01/10 Specimen Type: PLASMA Comment: No hemolysis noted. Ordering Provider: EDMOND GRIFFIN W Report Released Date/Time: Jan 11, 2024 01:34 PM Reporting Lab: [place] [address] [facility] [address] Performing Lab: [address] [address] [facility] COMPREHE NSIVE METABOLI C PANEL GLOMERULAR FILTRATION RATE/1.73 SQ M.PREDICTE D [VOLUME RATE/AREA] IN SERUM, PLASMA OR BLOOD BY CREATININE -BASED FORMULA (CKD-EPI 2020) 74.8 60 01/10 Specimen Type: PLASMA Comment: No hemolysis noted. Ordering Provider: EDMOND GRIFFIN Report Released Date/Time: Jan 11, 2024 01:34 PM Reporting Lab: [address] [address] Performing Lab: [address] [address] [place] [address] LDH LACTATE DEHYDROGEN ASE [ENZYMATIC ACTIVITY/V OLUME] IN SERUM OR PLASMA 149 U/L 125 - 243 01/10 Specimen Type: PLASMA Comment: No hemolysis noted. Ordering Provider: EDMOND GRIFFIN Report Released Date/Time: Jan 11, 2024 01:34 PM Reporting Lab: [address] [address] Performing Lab: [address] [address] [facility] BASIC METABOLI C PANEL CREATININE [MASS/VOLU ME] IN SERUM OR PLASMA 1.16 mg/dL 0.7 - 1.3 11/19 Specimen Type: PLASMA Comment: No hemolysis noted. Ordering Provider: KONSTANTIN HOYT Report Released Date/Time: Nov 19, 2024 06:00 AM Reporting Lab: [address] [address] Performing Lab: [address] [address] [facility] BASIC METABOLI C PANEL UREA NITROGEN [MASS/VOLU ME] IN SERUM OR PLASMA 21.3 mg/dL 9.0 - 25.0 11/19 Specimen Type: PLASMA Comment: No hemolysis noted. Ordering Provider: KONSTANTIN HOYT Report Released Date/Time: Nov 19, 2024 06:00 AM Reporting Lab: [facility] [address] [place] [address] Performing Lab: [facility] [address] [place] [address] [facility] BASIC METABOLI C PANEL GLUCOSE [MASS/VOLU ME] IN SERUM OR PLASMA 101 mg/dL 72 - 99 11/19 H Specimen Type: PLASMA Comment: No hemolysis noted. Ordering Provider: KONSTANTIN HOYT Report Released Date/Time: Nov 19, 2024 06:00 AM Reporting Lab: [address] [address] Performing Lab: [address] [address] [facility] BASIC METABOLI C PANEL SODIUM [MOLES/VOL UME] IN SERUM OR PLASMA 133 meq/L 136 - 145 11/19 L Specimen Type: PLASMA Comment: No hemolysis noted. Ordering Provider: KONSTANTIN HOYT Report Released Date/Time: Nov 19, 2024 06:00 AM Reporting Lab: [address] [address] Performing Lab: [address] [address] [facility] BASIC METABOLI C PANEL POTASSIUM [MOLES/VOL UME] IN SERUM OR PLASMA 4.4 meq/L 3.5 - 5 11/19 Specimen Type: PLASMA Comment: No hemolysis noted. Ordering Provider: KONSTANTIN HOYT Report Released Date/Time: Nov 19, 2024 06:00 AM Reporting Lab: [address] [address] Performing Lab: [address] [address] [facility] BASIC METABOLI C PANEL CHLORIDE [MOLES/VOL UME] IN SERUM OR PLASMA 100 meq/L 98 - 107 11/19 Specimen Type: PLASMA Comment: No hemolysis noted. Ordering Provider: KONSTANTIN HOYT Report Released Date/Time: Nov 19, 2024 06:00 AM Reporting Lab: [facility] [address] [facility] [address] Performing Lab: [facility] [address] [facility] [address] [facility] BASIC METABOLI C PANEL CARBON DIOXIDE, TOTAL [MOLES/VOL UME] IN SERUM OR PLASMA 21 meq/L 22 - 31 11/19 L Specimen Type: PLASMA Comment: No hemolysis noted. Ordering Provider: KONSTANTIN HOYT Report Released Date/Time: Nov 19, 2024 06:00 AM Reporting Lab: [facility] [address] [facility] [address] Performing Lab: [facility] [address] [facility] [address] [facility] BASIC METABOLI C PANEL CALCIUM [MASS/VOLU ME] IN SERUM OR PLASMA 9.4 mg/dL 8.4 - 10.4 11/19 Specimen Type: PLASMA Comment: No hemolysis noted. Ordering Provider: KONSTANTIN HOYT Report Released Date/Time: Nov 19, 2024 06:00 AM Reporting Lab: [facility] [address] [facility] [address] Performing Lab: [facility] [address] [facility] [address] [facility] BASIC METABOLI C PANEL GLOMERULAR FILTRATION RATE/1.73 SQ M.PREDICTE D [VOLUME RATE/AREA] IN SERUM, PLASMA OR BLOOD BY CREATININE -BASED FORMULA (CKD-EPI 2020) 64.5 60 11/19 Specimen Type: PLASMA Comment: No hemolysis noted. Ordering Provider: KONSTANTIN HOYT Report Released Date/Time: Nov 19, 2024 06:00 AM Reporting Lab: [facility] [address] [facility] [address] Performing Lab: [facility] [address] [facility] [address] [facility] BASIC METABOLI C PANEL CREATININE [MASS/VOLU ME] IN SERUM OR PLASMA 1.15 mg/dL 0.7 - 1.3 11/19 Specimen Type: PLASMA Comment: No hemolysis noted. Ordering Provider: MARKUS VITAL Report Released Date/Time: Nov 19, 2024 11:44 AM Reporting Lab: [place] [address] [facility] [address] Performing Lab: [place] [address] [facility] [address] [facility] BASIC METABOLI C PANEL UREA NITROGEN [MASS/VOLU ME] IN SERUM OR PLASMA 23.4 mg/dL 9.0 - 25.0 11/19 Specimen Type: PLASMA Comment: No hemolysis noted. Ordering Provider: MARKUS VITAL Report Released Date/Time: Nov 19, 2024 11:44 AM Reporting Lab: [place] [address] [facility] [address] Performing Lab: [place] [address] [facility] [address] [facility] BASIC METABOLI C PANEL GLUCOSE [MASS/VOLU ME] IN SERUM OR PLASMA 107 mg/dL 72 - 99 11/19 H Specimen Type: PLASMA Comment: No hemolysis noted. Ordering Provider: MARKUS VITAL Report Released Date/Time: Nov 19, 2024 11:44 AM Reporting Lab: [place] [address] [address] [address] Performing Lab: [place] [address] [facility] [address] [facility] BASIC METABOLI C PANEL SODIUM [MOLES/VOL UME] IN SERUM OR PLASMA 132 meq/L 136 - 145 11/19 L Specimen Type: PLASMA Comment: No hemolysis noted. Ordering Provider: MARKUS VITAL Report Released Date/Time: Nov 19, 2024 11:44 AM Reporting Lab: [place] [address] [facility] [address] Performing Lab: [facility] [address] [facility] [address] [facility] BASIC METABOLI C PANEL POTASSIUM [MOLES/VOL UME] IN SERUM OR PLASMA 4.1 meq/L 3.5 - 5 11/19 Specimen Type: PLASMA Comment: No hemolysis noted. Ordering Provider: MARKUS VITAL Report Released Date/Time: Nov 19, 2024 11:44 AM Reporting Lab: [facility] [address] [facility] [address] Performing Lab: [facility] [address] [facility] [address] [facility] BASIC METABOLI C PANEL CHLORIDE [MOLES/VOL UME] IN SERUM OR PLASMA 101 meq/L 98 - 107 11/19 Specimen Type: PLASMA Comment: No hemolysis noted. Ordering Provider: MARKUS VITAL Report Released Date/Time: Nov 19, 2024 11:44 AM Reporting Lab: [facility] [address] [facility] [address] Performing Lab: [facility] [address] [facility] [address] [facility] BASIC METABOLI C PANEL CARBON DIOXIDE, TOTAL [MOLES/VOL UME] IN SERUM OR PLASMA 23 meq/L 22 - 31 11/19 Specimen Type: PLASMA Comment: No hemolysis noted. Ordering Provider: MARKUS VITAL Report Released Date/Time: Nov 19, 2024 11:44 AM Reporting Lab: [facility] [address] [facility] [address] Performing Lab: [facility] [address] [facility] [address] [facility] BASIC METABOLI C PANEL CALCIUM [MASS/VOLU ME] IN SERUM OR PLASMA 9.2 mg/dL 8.4 - 10.4 11/19 Specimen Type: PLASMA Comment: No hemolysis noted. Ordering Provider: MARKUS VITAL Report Released Date/Time: Nov 19, 2024 11:44 AM Reporting Lab: [place] [address] [facility] [address] Performing Lab: [address] [address] [facility] BASIC METABOLI C PANEL GLOMERULAR FILTRATION RATE/1.73 SQ M.PREDICTE D [VOLUME RATE/AREA] IN SERUM, PLASMA OR BLOOD BY CREATININE -BASED FORMULA (CKD-EPI 2020) 65.1 60 11/19 Specimen Type: PLASMA Comment: No hemolysis noted. Ordering Provider: MARKUS VITAL Report Released Date/Time: Nov 19, 2024 11:44 AM Reporting Lab: [address] [address] Performing Lab: [place] [address] [facility] [address] [facility] CBC LEUKOCYTES [#/VOLUME] IN BLOOD BY AUTOMATED COUNT 11.2 10*3/uL 3.6 - 11.2 11/19 Specimen Type: BLOOD Comment: SCAN OF SLIDE AGREES WITH AUTOMATED DIFF Ordering Provider: MARKUS VITAL Report Released Date/Time: Nov 19, 2024 11:44 AM Reporting Lab: [place] [address] [facility] [address] Performing Lab: [place] [address] [facility] [address] [facility] CBC ERYTHROCYT ES [#/VOLUME] IN BLOOD BY AUTOMATED COUNT 3.49 10*6/uL 4.10 - 5.70 11/19 L Specimen Type: BLOOD Comment: SCAN OF SLIDE AGREES WITH AUTOMATED DIFF Ordering Provider: MARKUS VITAL Report Released Date/Time: Nov 19, 2024 11:44 AM Reporting Lab: [place] [address] [facility] [address] Performing Lab: [address] [address] [facility] CBC HEMOGLOBIN [MASS/VOLU ME] IN BLOOD 10.7 g/dL 13.1 - 16.8 11/19 L Specimen Type: BLOOD Comment: SCAN OF SLIDE AGREES WITH AUTOMATED DIFF Ordering Provider: MARKUS VITAL Report Released Date/Time: Nov 19, 2024 11:44 AM Reporting Lab: [address] [address] Performing Lab: [address] [address] [facility] CBC HEMATOCRIT [VOLUME FRACTION] OF BLOOD 31.6 38.2 - 48.4 11/19 L Specimen Type: BLOOD Comment: SCAN OF SLIDE AGREES WITH AUTOMATED DIFF Ordering Provider: MARKUS VITAL Report Released Date/Time: Nov 19, 2024 11:44 AM Reporting Lab: [address] [address] Performing Lab: [address] [address] [facility] CBC MCV [ENTITIC VOLUME] BY AUTOMATED COUNT 90.5 fL 80.0 - 100.0 11/19 Specimen Type: BLOOD Comment: SCAN OF SLIDE AGREES WITH AUTOMATED DIFF Ordering Provider: MARKUS VITAL Report Released Date/Time: Nov 19, 2024 11:44 AM Reporting Lab: [address] [address] Performing Lab: [address] [address] [facility] CBC MCH [ENTITIC MASS] BY AUTOMATED COUNT 30.7 pg 27.0 - 34.0 11/19 Specimen Type: BLOOD Comment: SCAN OF SLIDE AGREES WITH AUTOMATED DIFF Ordering Provider: MARKUS VITAL Report Released Date/Time: Nov 19, 2024 11:44 AM Reporting Lab: [address] [address] Performing Lab: [address] [address] [facility] CBC MCHC [MASS/VOLU ME] BY AUTOMATED COUNT 33.9 g/dL 33.0 - 36.0 11/19 Specimen Type: BLOOD Comment: SCAN OF SLIDE AGREES WITH AUTOMATED DIFF Ordering Provider: MARKUS VITAL Report Released Date/Time: Nov 19, 2024 11:44 AM Reporting Lab: [address] [address] Performing Lab: [place] [address] [facility] [address] [facility] CBC PLATELETS [#/VOLUME] IN BLOOD BY AUTOMATED COUNT 226 10*3/uL 150 - 400 11/19 Specimen Type: BLOOD Comment: SCAN OF SLIDE AGREES WITH AUTOMATED DIFF Ordering Provider: MARKUS VITAL Report Released Date/Time: Nov 19, 2024 11:44 AM Reporting Lab: [address] [address] Performing Lab: [place] [address] [facility] [address] [facility] CBC PLATELET MEAN VOLUME [ENTITIC VOLUME] IN BLOOD BY AUTOMATED COUNT 8.6 fL 7.5 - 11.2 11/19 Specimen Type: BLOOD Comment: SCAN OF SLIDE AGREES WITH AUTOMATED DIFF Ordering Provider: MARKUS VITAL Report Released Date/Time: Nov 19, 2024 11:44 AM Reporting Lab: [place] [address] [facility] [address] Performing Lab: [address] [address] [facility] CBC ERYTHROCYT E DISTRIBUTI ON WIDTH [RATIO] BY AUTOMATED COUNT 13.3 11.8 - 15.1 11/19 Specimen Type: BLOOD Comment: SCAN OF SLIDE AGREES WITH AUTOMATED DIFF Ordering Provider: MARKUS VITAL Report Released Date/Time: Nov 19, 2024 11:44 AM Reporting Lab: [place] [address] [facility] [address] Performing Lab: [facility] [address] [facility] [address] [facility] CBC LYMPHOCYTE S/100 LEUKOCYTES IN BLOOD BY AUTOMATED COUNT 16 11/19 Specimen Type: BLOOD Comment: SCAN OF SLIDE AGREES WITH AUTOMATED DIFF Ordering Provider: MARKUS VITAL Report Released Date/Time: Nov 19, 2024 11:44 AM Reporting Lab: [place] [address] [facility] [address] Performing Lab: [place] [address] [facility] [address] [facility] CBC MONOCYTES/ 100 LEUKOCYTES IN BLOOD BY AUTOMATED COUNT 10 11/19 Specimen Type: BLOOD Comment: SCAN OF SLIDE AGREES WITH AUTOMATED DIFF Ordering Provider: MARKUS VITAL Report Released Date/Time: Nov 19, 2024 11:44 AM Reporting Lab: [place] [address] [facility] [address] Performing Lab: [place] [address] [facility] [address] [facility] CBC NEUTROPHIL S/100 LEUKOCYTES IN BLOOD BY AUTOMATED COUNT 74 11/19 Specimen Type: BLOOD Comment: SCAN OF SLIDE AGREES WITH AUTOMATED DIFF Ordering Provider: MARKUS VITAL Report Released Date/Time: Nov 19, 2024 11:44 AM Reporting Lab: [place] [address] [facility] [address] Performing Lab: [place] [address] [facility] [address] [facility] CBC EOSINOPHIL S/100 LEUKOCYTES IN BLOOD BY AUTOMATED COUNT 0 11/19 Specimen Type: BLOOD Comment: SCAN OF SLIDE AGREES WITH AUTOMATED DIFF Ordering Provider: MARKUS VITAL Report Released Date/Time: Nov 19, 2024 11:44 AM Reporting Lab: [place] [address] [facility] [address] Performing Lab: [place] [address] [facility] [address] [facility] CBC BASOPHILS/ 100 LEUKOCYTES IN BLOOD BY AUTOMATED COUNT 0 11/19 Specimen Type: BLOOD Comment: SCAN OF SLIDE AGREES WITH AUTOMATED DIFF Ordering Provider: MARKUS VITAL Report Released Date/Time: Nov 19, 2024 11:44 AM Reporting Lab: [place] [address] [facility] [address] Performing Lab: [place] [address] [facility] [address] [facility] CBC LYMPHOCYTE S [#/VOLUME] IN BLOOD BY AUTOMATED COUNT 1.74 10*3/uL 0.77 - 4.50 11/19 Specimen Type: BLOOD Comment: SCAN OF SLIDE AGREES WITH AUTOMATED DIFF Ordering Provider: MARKUS VITAL Report Released Date/Time: Nov 19, 2024 11:44 AM Reporting Lab: [address] [address] Performing Lab: [place] [address] [facility] [address] [facility] CBC MONOCYTES [#/VOLUME] IN BLOOD BY AUTOMATED COUNT 1.12 10*3/uL 0.19 - 0.80 11/19 H Specimen Type: BLOOD Comment: SCAN OF SLIDE AGREES WITH AUTOMATED DIFF Ordering Provider: MARKUS VITAL Report Released Date/Time: Nov 19, 2024 11:44 AM Reporting Lab: [address] [address] Performing Lab: [place] [address] [facility] [address] [facility] CBC NEUTROPHIL S [#/VOLUME] IN BLOOD BY AUTOMATED COUNT 8.24 10*3/uL 2.10 - 8.00 11/19 H Specimen Type: BLOOD Comment: SCAN OF SLIDE AGREES WITH AUTOMATED DIFF Ordering Provider: MARKUS VITAL Report Released Date/Time: Nov 19, 2024 11:44 AM Reporting Lab: [place] [address] [facility] [address] Performing Lab: [place] [address] [facility] [address] [facility] CBC EOSINOPHIL S [#/VOLUME] IN BLOOD BY AUTOMATED COUNT 0.00 10*3/uL 0.00 - 0.60 11/19 Specimen Type: BLOOD Comment: SCAN OF SLIDE AGREES WITH AUTOMATED DIFF Ordering Provider: MARKUS IVTAL Report Released Date/Time: Nov 19, 2024 11:44 AM Reporting Lab: [address] [address] Performing Lab: [address] [address] [facility] CBC BASOPHILS [#/VOLUME] IN BLOOD BY AUTOMATED COUNT 0.02 10*3/uL 0.00 - 0.20 11/19 Specimen Type: BLOOD Comment: SCAN OF SLIDE AGREES WITH AUTOMATED DIFF Ordering Provider: MARKUS VITAL Report Released Date/Time: Nov 19, 2024 11:44 AM Reporting Lab: [address] [address] Performing Lab: [address] [address] [facility] MRSA SURVL NARES DNA METHICILLI N RESISTANT STAPHYLOCO CCUS AUREUS (MRSA) DNA [PRESENCE] IN NOSE BY ISAIAH WITH PROBE DETECTION Negative 11/18 Specimen Type: NARES Comment: Qualitative real-time PCR test for the rapid detection of methicillin -resistant Staphylococ cus aureus (MRSA) DNA from nasal swabs. A negative result does not preclude infection with the agent(s) tested and should not be used as the sole basis for treatment or other patient management decisions. A positive test does not necessarily indicate the presence of viable organisms, following bacterial culture to recover the organism for further characteriz ation and susceptibil ity testing. All results must be combined with clinical observation s, patient history, and epidemiolog ical information for final interpretat ion. Ordering Provider: YOVANI DUNN Report Released Date/Time: Nov 18, 2024 03:43 PM Reporting Lab: [place] [address] [place] [phone] Performing Lab: [facility] [address] [facility] [address] [facility] Vital Signs Combined list of inpatient and outpatient Vital Signs from Department of Defense and Veterans Affairs, ranging from 12 months to all on record, depending upon the facility. Vital Sign Value Date Comments Source WEIGHT 201 [facility] 32 kg/m2 02/28/2025 07:28:39 [facility] SYSTOLIC BLOOD PRESSURE 113 02/23/2025 09:39:54 [facility] DIASTOLIC BLOOD PRESSURE 62 02/23/2025 09:39:54 [facility] PULSE OXIMETRY 99 % 02/23/2025 09:39:54 [facility] WEIGHT 201 02/23/2025 09:39:54 [facility] BMI 32 kg/m2 02/23/2025 09:39:[address] [facility] PAIN 0 02/23/2025 09:39:[address] [facility] HEIGHT 67 02/23/2025 09:39:54 [facility] TEMPERATURE 97.4 02/23/2025 09:39:54 [facility] PULSE 71 02/23/2025 09:39:[address] [facility] RESPIRATION 18 02/23/2025 09:39:54 [facility] SYSTOLIC BLOOD PRESSURE 138 02/13/2025 10:16:21 [facility] DIASTOLIC BLOOD PRESSURE 74 02/13/2025 10:16:21 [facility] PULSE OXIMETRY 97 % 02/13/2025 10:16:21 [facility] WEIGHT 202.4 02/13/2025 10:16:21 [facility] BMI 30 kg/m2 02/13/2025 10:16:21 [facility] PAIN 0 02/13/2025 10:16:21 [facility] HEIGHT 69 02/13/2025 10:16:21 [facility] TEMPERATURE 97.9 02/13/2025 10:16:21 [facility] PULSE 73 02/13/2025 10:16:21 [facility] RESPIRATION 18 02/13/2025 [facility]:16[facility] SYSTOLIC BLOOD PRESSURE 107 01/18/2025 10:39:05 [facility] DIASTOLIC BLOOD PRESSURE 63 01/18/2025 10:39:05 [facility] PULSE OXIMETRY 98 % 01/18/2025 10:39:05 S [facility] WEIGHT 209.2 01/18/2025 10:39:05 [facility] BMI 31 kg/m2 01/18/2025 10:39:05 [facility] PAIN 0 01/18/2025 10:39:05 [facility] HEIGHT 69 01/18/2025 10:39:05 [facility] TEMPERATURE 96.4 01/18/2025 10:39:05 [facility] PULSE 72 01/18/2025 10:39:05 [facility] RESPIRATION 18 01/18/2025 10:39:05 [facility] SYSTOLIC BLOOD PRESSURE 146 01/10/2025 09:33:33 [facility] DIASTOLIC BLOOD PRESSURE 71 01/10/2025 09:33:33 [facility] DIV[facility] PULSE OXIMETRY 18 01/10/2025 09:33:33 [facility] WEIGHT 208.6 01/10/2025 09:33:33 [facility] BMI 31 kg/m2 01/10/2025 09:33:33 [facility] PAIN 99 01/10/2025 09:33:33 [facility] TEMPERATURE 97.6 01/10/2025 09:33:33 [facility] DIV[facility] PULSE 70 01/10/2025 09:33:33 . Ronny [facility] DIV[facility] RESPIRATION 19 01/10/2025 09:33:33 [facility] Encounters Combined list of: 1) Encounters from [facility] facilities going backup to the last 18 months, not all [place] inpatient encounters are included; 2) Encounters from the [facility] facilities going backup to 280 months. Location Location Details Encounter Type Encounter Number Reason For Visit Attending Provider ADM Date DC Date Status Disposition Source [facility] OFFICE O/P EST MOD 30 MIN [id number] Diagnos is: ICD-10- CM C44.311 Basal cell carcino ma of skin of nose [place] SILVERIO 09/29 [facility] Outpatient Encounter [id number] ISELA DAMON OSORIO C 09/30 [facility] Outpatient Encounter [id number] PEPPERLEONIEO PEGGY J 10/01 [facility] OFFICE O/P EST LOW 20 MIN [id number] Diagnos is: ICD-10- CM M21.40 Flat foot [pes planus] (acquir ed), unspeci fied foot KIANA RODRIGUEZ 10/04 [facility] Outpatient Encounter [id number] 10/04 [facility] DIV[facility] OFFICE O/P EST MOD 30 MIN [id number] Diagnos is: ICD-10- CM F43.12 Post-tr aumatic stress disorde r, chronic SYALVARADO ,NESTOR M 10/29 [facility] ELAS W/ CONDYLE PADS & DAWIT 90176-7.65 [id number] 003 Diagnos is: ICD-10- CM Q66.50 Congeni sergio pes planus, unspeci fied foot JALEN,I AN R 11/01 [facility] En[facility] 79247-1.65 [id number] 6 LINO CARTER J 11/02 [facility] En[facility] 85494-8.65 [id number] 4 JALEN,I AN R 11/03 [facility] Outpatient Encounter 50312-4. [id number] 2 RAULLINO J 11/04 [facility] ORTH DEV REPAIR/REP L MINOR P 95255-1. [id number] 291 Diagnos is: ICD-10- CM Q66.50 Congeni sergio pes planus, unspeci fied foot JALEN,I AN R 11/04 [facility] Outpatient Encounter 99050-9.65 [id number] 9 LINO CARTER J 11/04 [facility] Outpatient Encounter 65799-4.65 [id number] 7 RAULLEONIEO MAS J 11/05 [facility] Encounter 82959-2.65 [id number] 6 RAULLEONIEO MAS J 11/12 [facility] En[facility] 56260-2.65 [id number] 5 RAULLEONIEO MAS J 11/22 [facility] Outpatient Encounter 40955-3.65 [id number] 6 LINO CARTER 11/24 [facility] Outpatient Encounter 88244-1.65 [id number] 9 11/26 [facility] Outpatient Encounter 36472-7.65 [id number] 5 12/03 [facility] Outpatient Encounter 87289-8.65 [id number] 4 12/07 [facility] CASE MANAGEMENT 51235-865 [id number] 8 Diagnos is: ICD-10- CM C85.10 Unspeci fied B-cell lymphom a, unspeci fied site GUERO PATRICK 12/08 [facility] OFFICE O/P EST MOD 30 MIN 11565-7.65 [id number] 339 Diagnos is: ICD-10- CM L82.1 Other seborrh eic keratos is MATT LENZ 12/31 [facility] Outpatient Encounter 63057-1.65 [id number] 5 12/31 [facility] Outpatient Encounter 01340-6.65 [id number] 3 YOAN BRAUN 01/03 [facility] OFFICE O/P EST MOD 30 MIN 63175-4.65 [id number] 463 Diagnos is: ICD-10- CM M25.561 Pain in right knee KIANA RODRIGUEZ 01/04 [facility] Outpatient Encounter 35355-5.65 [id number] 9 JUSTIN AYERS 01/04 [facility] BELT STRAP SLEEV GRMNT COVER 21230-4.65 [id number] 480 Diagnos is: ICD-10- CM Q66.50 Congeni sergio pes planus, unspeci fied foot JALENKolton AN R 01/07 [facility] OFFICE O/P EST MOD 30 MIN 84287-8.65 [id number] 2 Diagnos is: ICD-10- CM C85.10 Unspeci fied B-cell lymphom a, unspeci fied site GABYBASIL RICARDO TIN W 01/10 [facility] OFFICE O/P EST MOD 30 MIN 68930-6.65 [id number] 945 Diagnos is: ICD-10- CM F32.A Depress ion, unspeci fied SYALVARADO ,NESTOR M 01/[address] [facility] OFFICE O/P EST MOD 30 MIN 62564-5.65 [id number].[id number] 683 Diagnos is: ICD-10- CM L57.0 Actinic keratos is [place] SILVERIO 01/31 [facility] COMPRE OPH EXAM EST PT 1/> 15414-3.65 [id number] 979 Diagnos is: ICD-10- CM H25.11 Age-rel ated nuclear catarac t, right eye ERWIN ROBLES TTHEW C 02/02 [facility] Outpatient Encounter 49002-6.65 [id number] 1 LINO CARTER 02/23 [facility] Outpatient Encounter 58545-8.65 [id number] 7 LINO CARTER 03/01 [facility] Outpatient Encounter 80068-6.65 [id number] 7 YULI TATE ISTINE M 03/07 [facility] OFFICE O/P NEW MOD 45 MIN 91744-7.65 [id number] 585 Diagnos is: ICD-10- CM 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 , right knee JEANA,KEIRS TIN A 03/10 [facility] Outpatient Encounter 53776-1.65 [id number] 0 03/11 [facility] Outpatient Encounter 09308-8.65 [id number] 0 03/25 [facility] CASE MANAGEMENT 66543-1.65 [id number] 1 Diagnos is: ICD-10- CM C85.10 Unspeci fied B-cell lymphom a, unspeci fied site GUERO PATRICK A L 03/29 [facility] HC PRO PHONE CALL 5-10 MIN 39452-8.65 [id number] 5 Diagnos is: ICD-10- CM C85.10 Unspeci fied B-cell lymphom a, unspeci fied site ISRAEL HOLMAN A A 03/31 [facility] Outpatient Encounter 78973-5.65 [id number] 3 04/07 [facility] HC PRO PHONE CALL 5-10 MIN 04449-1.65 [id number] 1 Diagnos is: ICD-10- CM C85.10 Unspeci fied B-cell lymphom a, unspeci fied site GABBI PATRICKN A L 04/14 [facility] ORTHOTIC MGMT&TRAIN G 1ST ENC 02988-9.65 [id number] 449 Diagnos is: ICD-10- CM Z46.89 Encount er for fitting and adjustm ent of oth devices EAN BOATENG J 04/18 [facility] OFFICE O/P EST MOD 30 MIN 06239-2.65 [id number] 220 Diagnos is: ICD-10- CM M17.12 Unilate ral primary osteoar thritis , left knee JEANA,KEIRS TIN A 04/22 [facility] Outpatient Encounter 59450-1.65 [id number] 8 04/29 [facility] OFFICE O/P EST MOD 30 MIN 61537-3.65 [id number] 729 Diagnos is: ICD-10- CM F32.A Depress ion, unspeci fied JAYDEN ,NESTOR M 05/09 [facility] KO DOUBLE UPRIGHT PRE REACTOR KETTLE 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 OFFICE O/P EST LOW 20 MIN 34840-2.65 [id number].875450 258 Diagnos is: ICD-10- CM L57.0 Actinic keratos is [place] SILVERIO 05/24 [facility] HC PRO PHONE CALL 5-10 MIN 29771-0.65 [id number] 5 Diagnos is: ICD-10- CM M25.562 Pain in left knee LAZO,SO DIMITRI M 05/26 [facility] Outpatient Encounter 20946-2.65 [id number] 8 05/31 [facility] Outpatient Encounter 36045-5.65 [id number] 4 06/02 [facility] OFFICE O/P EST MOD 30 MIN 61708-8.65 [id number] 223 Diagnos is: ICD-10- CM 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 , right knee JEANA,KEIRS TIN A 06/16 [facility] ORTHOTIC MGMT&TRAIN G 1ST ENC 12294-4.65 [id number] 600 Diagnos is: ICD-10- CM M17.12 Unilate ral primary osteoar thritis , left knee JALEN,I AN R 06/27 [facility] IMMUNIZATI ON ADMIN 15379-4.65 [id number] 797 Diagnos is: ICD-10- CM Z23 Encount er for immuniz atMIKE Garcia 06/27 [facility] Outpatient Encounter 18413-6.65 [id number] 3 07/05 [facility] Outpatient Encounter 56940-5.65 [id number] 2 07/18 [facility] KO SINGLE UPRIGHT PREFAB OTS 00024-4.65 [id number] 921 Diagnos is: ICD-10- CM M17.12 Unilate ral primary osteoar thritis , left knee JALEN,I AN R 07/20 [facility] Outpatient Encounter 03685-4.65 [id number] 7 YULI TATE M 07/29 [facility] Out[facility] Encounter 76020-2.65 [id number] 5 LINO CARTER J 08/01 [facility] Outpatient Encounter 42246-5.65 [id number] 1 LINO CARTER J 08/02 [facility] Outpatient Encounter 27301-3.65 [id number] 7 MOSHE ROSS M 08/04 [facility] OFFICE O/P EST MOD 30 MIN 21246-8.65 [id number] 723 Diagnos is: ICD-10- CM F32.A Depress ion, unspeci fied ISIAH CARPENTERTA M 08/09 [facility] Outpatient Encounter 88631-0.65 [id number] 0 08/10 [facility] Outpatient Encounter 35756-2.65 [id number] 0 08/10 [facility] Outpatient Encounter 96685-2.65 [id number] 9 YOAN BRAUN A 08/12 [facility] OFFICE O/P EST MOD 30 MIN 50418-5.65 [id number].[id number] 604 Diagnos is: ICD-10- CM Z86.73 Prsnl hx of TIA (TIA), 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 KIANA RODRIGUEZ 08/15 [facility] Outpatient Encounter 23920-8.65 [id number] 6 Ara ART 08/15 [facility] Outpatient Encounter 96305-8.65 [id number] 3 ANNETTE RODAS I 08/16 [facility] HLTH BHV ASSMT/REAS SESSMENT 79387-3.65 [id number] 2 Diagnos is: ICD-10- CM N18.9 Chronic kidney disease , unspeci finaima CELINAGABBIDeshaun Flanagan L 08/18 [facility] OFFICE O/P EST LOW 20 MIN 97429-1.65 [id number].557040 424 Diagnos is: ICD-10- CM 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 [place] SILVERIO 08/29 [facility] Outpatient Encounter 25621-1.98 [id number] 835 09/21 [facility] Outpatient Encounter 79475-9.01 [id number] 2 JEANAKELLYCAMILA TIN A 09/21 [facility] INTRAORAL PERIAPICAL [place] ADD 01952-7.65 [id number] 2 Diagnos is: ICD-10- CM Z01.20 Encount er for dental exam and cleanin g w/o abnorma l finding s SA PAULA BLE A 09/23 [facility] OFF/OP CONSLTJ NEW/EST HI 55 46142-7.65 [id number] 0 Diagnos is: ICD-10- CM G47.33 Obstruc tive sleep apnea (adult) (pediat archie) BHUMIKA MARIN B 09/27 [facility] OTHER DRUGS/MEDI CAMENTS 67818-7.65 [id number] 6 Diagnos is: ICD-10- CM K03.6 Deposit s [accret ions] on teeth HUGEE,TAMM Y 09/29 [facility] EDUCATION 42049-7.65 7A0.739545 015 Diagnos is: ICD-10- CM E66.811 Obesity , class 1 KEARA SOTO 10/10 [facility] Outpatient Encounter 81088-7.65 [id number] 8 Diagnos is: ICD-10- CM I10 Essenti al (primar y) hyperte nsion MARC,CONN IE S 10/11 [facility] HEARING AID XM&SLCTN BINAURL 25864-1.65 7A0.379841 492 Diagnos is: ICD-10- CM H90.3 Sensori neural hearing loss, bilater al VEST,TRISHA A 10/26 [facility] HEARING AID XM&SLCTN BINAURL 22118-1.65 [id number] 008 Diagnos is: ICD-10- CM H90.3 Sensori neural hearing loss, bilater al VEST,TRISHA A 10/26 [facility] OFFICE O/P EST HI 40 MIN 37189-8.65 [id number] 1 Diagnos is: ICD-10- CM 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 , right knee VITAL,GIRE ESH B 10/27 [facility] Outpatient Encounter 07533-5.65 [id number] 8 11/01 [facility] OFF/OP CNSLTJ NEW/EST MOD 40 71092-9.65 [id number] 7 Diagnos is: ICD-10- CM R07.9 Chest pain, unspeci fied LEONIDES,JAKUB 11/01 [facility] Outpatient Encounter 85609-4.65 [id number] 2 11/01 [facility] OFF/OP EST MAY X REQ PHY/QHP 37662-6.65 [id number] 9 Diagnos is: ICD-10- CM 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 , right knee BOUGE,RUBÉN SON L 11/01 [facility] OFFICE O/P EST HI 40 MIN 50548-1.65 [id number] 0 Diagnos is: ICD-10- CM Z01.818 Encount er for other preproc edural examina ARCHANA Huang 11/01 [facility] Outpatient Encounter 37158-5.65 [id number] 0 LINO CARTER J 11/03 [facility] Outpatient Encounter 95724-0.65 [id number] 6 11/03 [facility] Outpatient Encounter 66942-7.65 [id number] 6 11/03 [facility] OT EVAL LOW COMPLEX 30 MIN 48444-1.65 [id number] 0 Diagnos is: ICD-10- CM 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 , right knee ESTER,GREGORY AN T 11/08 [facility] SELF CARE MNGMENT TRAINING 56877-9.65 [id number] 6 Diagnos is: ICD-10- CM 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 , right knee AKI DIAZ L 11/08 [facility] Outpatient Encounter 81247-9.65 [id number] 1 Yue ROSEN 11/08 [facility] Outpatient Encounter 13597-5.65 [id number] 2 BRENNEN BOLES GGY W 11/15 [facility] Outpatient Encounter 28515-9.65 [id number] 7 RAMAN CARRINGTON NNIFER A 11/16 [facility] PH1 ASSMT&MGMT NQHP 5-10 52528-8.65 [id number] 5 Diagnos is: ICD-10- CM M25.561 Pain in right knee HILYARD,LO RI D 11/17 [facility] OFFICE O/P EST LOW 20 MIN 56378-3.65 [id number] 1 Diagnos is: ICD-10- CM Z01.818 Encount er for other preproc edural examina ERWIN Lares 11/18 [facility] EDU&TRN PT SELF-MGMT NQHP 1 01159-1.65 [id number] 0 Diagnos is: ICD-10- CM 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 , right knee HILYARD,LO RI D 11/18 [facility] Outpatient Encounter 51112-0.65 [id number] 6 11/18 [facility] Outpatient Encounter 83904-3.65 [id number] 2 RAMAN KNOWLES SSICA K 11/18 [facility] En[facility] 76817-6.65 [id number] 8 [facility] B 11/18 [facility] TOTAL KNEE ARTHROPLAS TY 13079-1.65 [id number] 1 RACHEL EDMOND E 11/18 [facility] Outpatient Encounter 60081-1.65 [id number] 0 RAMAN KNOWLES K 11/18 [facility] OFF/OP CONSLTJ NEW/EST SF 20 32029-2.65 [id number] 0 Diagnos is: ICD-10- CM M25.561 Pain in right knee ERWIN LAGOS 11/18 [facility] Outpatient Encounter 62752-7.65 [id number] 9 STANFORD BURKETT 11/18 [facility] Inpatient Encounter 09994-6.65 [id number] 7 Admit Reason: RANDALL KOENIG 11/18 [facility] Inpatient Encounter 44654-3.65 [id number] 3 SHADIA CUEVA 11/18 [facility] Inpatient Encounter 79644-8.65 [id number] 5 SHADIA CUEVA 11/18 [facility] En[facility] 43425-6.65 [id number] 5 SHADIA CUEVA 11/18 [facility] Encounter 97263-7.65 [id number] 5 HAMMADSHADIA 11/18 [facility] Inpatient Encounter 56905-9.65 [id number] 0 HAMMADSHADIA 11/18 [facility] Inpatient Encounter 00314-2.65 [id number] 4 DAVONTE THOMPSON W 11/18 [facility] Inpatient Encounter 45770-8.65 [id number] 9 HAMMADSHADIA 11/18 [facility] Inpatient Encounter 09784-9.65 [id number] 8 LENORA LAWSONMAKSIM Barahona 11[facility]18 [facility] Inpatient Encounter 23724-6.65 [id number] 7 LULUNATHANIEL MESSER 11/18 [facility] Inpatient Encounter 08724-9.65 [id number] 9 LULUNATHANIEL MESSER Jun 11/19 [facility] Inpatient Encounter 57033-9.65 [id number] 7 ANTHANIEL LAWSON 11/19 [facility] SELF CARE MNGMENT TRAINING 44281-4.65 [id number] 1 Diagnos is: ICD-10- CM M25.561 Pain in right knee AMY IBARRA 11/19 [facility] Inpatient Encounter 27519-1.65 [id number] 2 NATHANIEL LAWSON Y 11/19 [facility] N [facility] Inpatient Encounter 88854-9.65 [id number] 4 NATHANIEL LAWSON Y 11/19 [facility] THERAPEUTI C ACTIVITIES 02213-9.65 [id number] 7 Diagnos is: ICD-10- CM M25.561 Pain in right knee CHRISTIGREGORY ROJAS R 11/19 [facility] Inpatient Encounter 14045-1.65 [id number] 0 BASIL TRAN N 11/19 [facility] INTER FOLD RO[employer] INDIVIDU 58116-7.65 [id number] 1 Diagnos is: ICD-10- CM Z71.81 Spiritu al or religio us 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 counselor NATALY Meredith 11/19 [facility] Inpatient Encounter 38409-1.65 [id number] 4 BAM RAMIREZ A 11/19 [facility] Inpatient Encounter 46016-9.65 [id number] 5 BASIL TRAN N 11/19 [facility] Inpatient Encounter 72377-0.65 [id number] 1 BAM RAMIREZ A 11/19 [facility] Inpatient Encounter 44823-0.65 [id number] 9 BASIL TRAN N 11/19 [facility] Outpatient Encounter 34983-1.65 [id number] 7 11/20 [facility] Outpatient Encounter 43644-2.65 [id number] 0 11/21 [facility] Outpatient Encounter 16672-0.65 [id number] 4 RAULLEONIEMichelle PEGGY J 11/21 [facility] Outpatient Encounter 43498-1.65 [id number] 6 TITA IONYOLANDE Umu 11/22 [facility] Outpatient Encounter 59417-9.65 [id number] 8 11/22 [facility] Outpatient Encounter 47723-3.65 [id number] 4 11/23 [facility] Outpatient Encounter 61101-8.65 [id number] 5 11/24 [facility] PH1 ASSMT&MGMT NQHP 5-10 11059-8.65 [id number] 7 Diagnos is: ICD-10- CM N18.9 Chronic kidney disease , unspeci GRETTA Ruby 11/25 [facility] Outpatient Encounter 17591-8.65 [id number] 5 11/28 [facility] PT EDUCATION NOC INDIVID 12260-0.65 [id number] 9 Diagnos is: ICD-10- CM Z65.9 Problem related to unspeci fied psychos ocial circums tances GUERO PATRICK L 11/30 [facility] Outpatient Encounter 81929-5.65 [id number] 2 11/30 [facility] Outpatient Encounter 54964-7.79 [id number] 8 LINO CARTER J 11/30 [facility] Outpatient Encounter 91017-2.65 [id number] 7 ADOLFO HILLS A 12/01 [facility] EDU&TRN PT SELF-MGMT NQHP 1 77130-9.65 [id number] 4 Diagnos is: ICD-10- CM 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 , right knee AUGIE GOMEZ 12/12 [facility] HEARING AID SUP/ACCESS /DEV 24012-5.65 [id number] 163 Diagnos is: ICD-10- CM Z46.1 Encount er for fitting and adjustm ent of hearing aid Ara ARRIOLA 12/13 [facility] POSTOP FOLLOW-UP VISIT 55394-6.65 7A0.707126 881 Diagnos is: ICD-10- CM Z47.1 Afterca re followi ng joint replace ment surgery BRENNEN BOLES W 12/14 [facility] THERAPEUTI C EXERCISES 55187-1.65 [id number] 948 Diagnos is: ICD-10- CM Z47.1 Afterca re followi ng joint replace ment surgery MOSHE COLES A 12/19 [facility] Encounter 38504-0.65 [id number] 6 SLICKPankaj DUGANPankaj Stratton 12/20 [facility] PH1 ASSMT&MGMT NQHP 5-10 27265-7.65 [id number] 3 Diagnos is: ICD-10- CM N18.9 Chronic kidney disease , unspeci fied GRETTA JACOBS 12/28 [facility] OFFICE O/P EST LOW 20 MIN 77106-6.65 [id number] 6 Diagnos is: ICD-10- CM Z85.820 Persona l history of maligna nt melanom a of skin DAVINA LARKINILY MERCEDES 12/28 [facility] Outpatient Encounter 53826-0.65 [id number] 8 12/30 [facility] THERAPEUTI C EXERCISES 69110-5.65 [id number] 811 Diagnos is: ICD-10- CM Z47.1 Afterca re followi ng joint replace ment surgery MOSHE COLES 01/02 [facility] OFFICE O/P EST MOD 30 MIN 81913-2.65 [id number] 954 Diagnos is: ICD-10- CM F32.A Depress ion, unspeci fied NESTOR CARPENTER 01/09 [facility] Outpatient Encounter 76070-9.65 [id number] 741 MOSHE ROSS M 01/09 [facility] OFFICE O/P EST MOD 30 MIN 43765-8.65 [id number] 8 Diagnos is: ICD-10- CM C85.10 Unspeci fied B-cell lymphom a, unspeci fied site RAKESH DICKERSON 01/10 [facility] MANUAL THERAPY / REGIONS 80663-0.65 [id number] 329 Diagnos is: ICD-10- CM Z47.1 Afterca re followi ng joint replace [facility] MOSHE COLES A 01/11 [facility] THERAPEUTI C EXERCISES 22656-3.65 7A0.306210 227 Diagnos is: ICD-10- CM Z47.1 Afterca re followi ng joint replace [facility] surgery MOSHE COLES A 01/18 [facility] OFFICE O/P EST LOW 20 MIN 78813-0.65 [id number] 341 Diagnos is: ICD-10- CM M17.12 Unilate ral primary osteoar thritis , left knee JEANA,KEIRS TIN A 01/18 [facility] THERAPEUTI C EXERCISES 51078-0.65 7A0.002290 504 Diagnos is: ICD-10- CM Z47.1 Afterca re followi ng joint replace [facility] surgery MOSHE COLES A 01/25 [facility] THERAPEUTI C EXERCISES 02784-0.65 7A0.776050 327 Diagnos is: ICD-10- CM Z47.1 Afterca re followi ng joint replace [facility] surgery MOSHE COLES A 01/30 [facility] OFFICE O/P EST MOD 30 MIN 87219-6.65 [id number] 808 Diagnos is: ICD-10- CM H25.813 Combine d forms of age-rel ated catarac t, bilater al KATELYN REYES 01/30 [facility] Outpatient Encounter 32105-9.65 [id number] 0 02/01 [facility] THERAPEUTI C EXERCISES 94307-7.65 [id number] 685 Diagnos is: ICD-10- CM Z47.1 Afterca re followi ng joint replace [facility] surgery MOSHE COLES A 02/06 [facility] OFFICE O/P EST HI 40 MIN 05459-5.65 [id number].734774 017 Diagnos is: ICD-10- CM I10 Essenti al (primar y) hyperte Conchita Hines 02/13 [facility] Outpatient Encounter 87614-3.65 [id number] 6 LINO CARTER 02/14 [facility] THERAPEUTI C EXERCISES 95218-8.65 [id number] 356 Diagnos is: ICD-10- CM Z47.1 Afterca re followi ng joint replace [facility] surgery MOSHE COLES A 02/15 [facility] Outpatient Encounter 32057-3.65 [id number] 7 Diagnos is: ICD-10- CM Z47.1 Afterca re followi ng joint replace [facility] ELVI,BRENNEN GGY W 02/16 [facility] THERAPEUTI C EXERCISES 42143-8.65 [id number] 933 Diagnos is: ICD-10- CM Z47.1 Afterca re followi ng [facility] MOSHE COLESJUD A 02/20 [facility] OFFICE O/P EST MOD 30 MIN [id number] Diagnos is: ICD-10- CM M17.0 Bilater al primary osteoar thritis of knee PARI,KIR SHERLY BUTLER 02/23 [facility] N [facility] Outpatient Encounter [id number] 03/08 [facility] SYNCH AUDIO-ONLY EST HIGH 40 [id number] Diagnos is: ICD-10- CM M17.12 Unilate ral primary osteoar thritis , left knee GALLO SOLOMON R 03/11 [facility] Outpatient Encounter [id number] 03/13 [facility] En[facility] [id number] YULI TATE M 03/13 [facility] N [facility] CPAP FULL FACE MASK [id number] Diagnos is: ICD-10- CM G47.33 Obstruc tive sleep apnea (adult) (pediat archie) SEPULVEDABLU MESSER LBJun 03/20 [facility] Outpatient Encounter [id number] ADOLFO HILLS A 03/22 [facility] Outpatient Encounter [id number] 03/26 [facility] Procedures Combined list of: 1) Procedures from Department of Veterans Affairs facilities going back up to thelast 18 months, not all VA non-surgical procedures are included; 2) All procedures from the Department of Defense facilities. Procedure Procedure Type Code Date Perfomer Comments Doug e RIGHT TOTAL KNEE ARTHROPLASTY TOTAL KNEE ARTHROPLASTY 12143 5 [facility] Social History Combined list of available smoking, tobacco, and other social history from Department of Defense and Veterans Affairs facilities. Social History Type Response Date Comment Sour e Tobacco smoking status NHIS VA-TOBACCO USE FORMER CIGARETTES 08/09/2024 [facility] History of tobacco use VA-TOBACCO NEVER USED OTHER TYPE 08/09/2024 [facility] History of tobacco use VA-TOBACCO FORMER USER 07/06/2023 [facility] History of tobacco use VA-TOBACCO FORMER USER 07/04/2022 [facility] History of tobacco use VA-TOBACCO FORMER USER 05/24/2021 [facility] History [facility] tobacco use [place]-TOBACCO FORMER USER 05/09/2020 [facility] History of tobacco use VA-TOBACCO QUIT 15 YRS OR MORE 09/10/2018 [facility] History of tobacco use LIFETIME NON-SMOKER 02/19/2018 [facility] History of tobacco use LIFETIME NON-SMOKER 07/17/2017 [facility] History of tobacco use CURRENT NON-SMOKER (QUIT > 12MTHS) 12/05/2016 [facility] History of tobacco use LIFETIME NON-SMOKER 04/19/2016 [facility] History of tobacco use CURRENT NON-SMOKER (QUIT > 12MTHS) 09/20/2015 [facility] History of tobacco use CURRENT NON-SMOKER (QUIT > 12MTHS) 01/17/2015 [facility] History of tobacco use CURRENT NON-SMOKER (QUIT > 12MTHS) 07/11/2014 [facility] History of tobacco use CURRENT NON-SMOKER (QUIT > 12MTHS) 01/06/2014 [facility] History of tobacco use CURRENT NON-SMOKER (QUIT > 12MTHS) 07/06/2013 [facility] History of tobacco use CURRENT NON-SMOKER (QUIT > 12MTHS) [facility] of tobacco use CURRENT NON-SMOKER (QUIT > 12MTHS) 12/24/2011 CODY Rocky [facility] History of tobacco use CURRENT NON-SMOKER (QUIT > 12MTHS) 01/16/2011 [facility] History of tobacco use CURRENT NON-SMOKER (QUIT > 12MTHS) 01/31/2010 [facility] History of tobacco use LIFETIME NON-SMOKER 12/06/2008 CODY Turner [facility] Plan of Care List of future care activities from [facility] facilities. Additional future care activities may be listed in the Assessment and Plan section. Date/Time Care Activity Care Activity Detail Facili ty 03/30/2025 AMBULATORY - MEDICINE AMBULATORY - MEDICI [facility] Advance Directives List of completed, amended, or rescinded Advance Directives on record at [facility] facilities. An actual copy of the Directive is not included. Date Advance Directive Provider Source 06/12/[address] [facility] 12/24/2011 ADVANCE DIRECTIVE DISCUSSION TOMMY VAZQUEZ [facility]
[2025-03-28 10:10] VITALS: BP 129/57; PULSE 74; RESP 16; TEMP 36.4; O2SAT 100
--- NOTE | 2025-03-28 10:17 | ED.GENADULT ---
HPI - General Adult General Chief complaint: Skin/Abscess/Foreign Body Stated complaint: remove stables History of Present Illness HPI narrative: Zeeshan Espinal Is a 79-year-old male who presents today to get antwon removed from his head. He states he had a mechanical ground level fall about 10 days ago and struck the back of his head and had 2 antwon placed. Denies any acute concerns denies increased pain no fevers no chills no headache. Related Data Home Medications ?Medication ?Instructions ?Recorded ?Confirmed ?Last Taken ?Type atorvastatin 80 mg tablet 80 mg PO HS 11/05/22 11/05/22 Unknown History cetirizine 10 mg tablet 10 mg PO DAILY 11/05/22 11/05/22 Unknown History cyclobenzaprine 10 mg tablet 10 mg PO TID PRN spasms 11/05/22 11/05/22 Unknown History duloxetine 30 mg capsule,delayed 30 mg PO DAILY 11/05/22 11/05/22 Unknown History release finasteride 5 mg tablet 5 mg PO DAILY 11/05/22 11/05/22 Unknown History hydrochlorothiazide 25 mg tablet 25 mg PO DAILY 11/05/22 11/05/22 Unknown History lisinopril 20 mg tablet 20 mg PO DAILY 11/05/22 11/05/22 Unknown History tamsulosin 0.4 mg capsule 0.4 mg PO HS 11/05/22 11/05/22 Unknown History trazodone 50 mg tablet 50 mg PO HS 11/05/22 11/05/22 Unknown History aspirin 325 mg capsule 325 mg PO DAILY 03/17/25 03/17/25 Unknown History Allergies Allergy/AdvReac Type Severity Reaction Status Date / Time No Known Allergies Allergy Verified 03/28/25 10:02 Review of Systems Review of Systems: All systems reviewed & are unremarkable except as noted in HPI and below PMFSH Past Medical History Medical History Large B-cell lymphoma Anxiety Skin cancer Benign prostatic hyperplasia Diverticulitis Obstructive sleep apnea Does not use CPAP. Hypertension Cerebrovascular accident (2009) Residual mild left-sided weakness. Surgical History Surgical History Status post surgical removal of malignant neoplasm of skin No pertinent past surgical history Family History Family History Other Hypertension Social History Social History Social History: Surrogate medical decision maker: Miguelina Espinal, spouse. Code status: Full code. Smoking packs per day: 1 Smoking cigarettes per day: 20.0 Smoking status: Former smoker Tobacco type: cigarettes Alcohol intake: former Substance use: never Lack of Transportation: No Lack of Food: Never True Current Housing: Decline to Answer Concerned About Future Housing: Decline to Answer Difficulty Paying Gas/Electric Bills: Decline to Answer Difficulty Paying for Meds: Decline to Answer Currently Unemployed: Decline to Answer Education: Decline to Answer Difficulty w/ Childcare or Family Care: Decline to Answer Additional living arrangements comments: Lives in [place]. 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 Spiritual care concerns: No Exam Narrative: GENERAL: Well-appearing, well-nourished, and in no acute distress. HEAD: Normocephalic, atraumatic. EYES: PERRLA and EOMI. ENT: Nares clear, no rhinorrhea or epistaxis. Mucous membranes moist. O CHEST: No respiratory distress. HEART: Normal peripheral pulses. EXTREMITIES: Normal range of motion. SKIN: Warm, dry, no rash. NEURO: No focal deficits. Alert and oriented x3. PSYCH: Normal mood and affect. Course Course Level of Care: Express Care Visit Vital Signs Vital signs: Vital Signs Temperature 36.4 C L 03/28/25 10:10 Pulse Rate 74 03/28/25 10:10 Respiratory Rate 16 03/28/25 10:10 Blood Pressure 129/57 L 03/28/25 10:10 Pulse Oximetry 100 03/28/25 10:10 Oxygen Delivery Room Air 03/28/25 10:10 Temperature 36.4 C L 03/28/25 10:10 Pulse Rate 74 03/28/25 10:10 Respiratory Rate 16 03/28/25 10:10 Blood Pressure 129/57 L 03/28/25 10:10 Pulse Oximetry 100 03/28/25 10:10 Oxygen Delivery Room Air 03/28/25 10:10 Procedures Other Procedure Procedure 1: Other Procedure: Wound irrigated with NS Two antwon removed Area covered with antibiotic ointment Patient denies pain, and tolerated well. Medical Decision Making MDM Narrative Medical decision making narrative: Two antwon removed patient tolerated well area cleansed and antibiotic ointment placed. Medical Records Medical records reviewed: Yes I reviewed the external patient's medical records. Vital Signs Vital Signs: Vital Signs Temperature 36.4 C L 03/28/25 10:10 Pulse Rate 74 03/28/25 10:10 Respiratory Rate 16 03/28/25 10:10 Blood Pressure 129/57 L 03/28/25 10:10 Pulse Oximetry 100 03/28/25 10:10 Oxygen Delivery Room Air 03/28/25 10:10 Temperature 36.4 C L 03/28/25 10:10 Pulse Rate 74 03/28/25 10:10 Respiratory Rate 16 03/28/25 10:10 Blood Pressure 129/57 L 03/28/25 10:10 Pulse Oximetry 100 03/28/25 10:10 Oxygen Delivery Room Air 03/28/25 10:10 Vitals reviewed by me Discharge Plan Discharge Clinical Impression: Removal of antwon Patient Disposition: Home Condition: Stable Instructions: Antibiotic Form Additional Instructions: Continue to keep area cleansed This should continue to heal If you develop any new or worsening symptoms proceed to the ER Patient Language: Bulgarian Prescriptions: No Action aspirin 325 mg capsule 325 mg PO DAILY cyclobenzaprine 10 mg Tablet 10 mg PO TID PRN (Reason: spasms) atorvastatin 80 mg Tablet 80 mg PO HS Rx Instructions: take 1/2 tablet by mouth every evening trazodone 50 mg Tablet 50 mg PO HS Rx Instructions: take 1/2 tablet by mouth at bedtime cetirizine 10 mg Tablet 10 mg PO DAILY lisinopril 20 mg Tablet 20 mg PO DAILY Rx Instructions: take 1/2 tablet by mouth once a day tamsulosin 0.4 mg Capsule 0.4 mg PO HS hydrochlorothiazide 25 mg Tablet 25 mg PO DAILY finasteride 5 mg Tablet 5 mg PO DAILY duloxetine 30 mg Capsule,Delayed Release(Dr/Ec) 30 mg PO DAILY Rx Instructions: take 3 capsules by mouth once a day levofloxacin 750 mg tablet 750 mg PO DAILY Qty: 4 0RF Rx Instructions: Next dose 11/08/22 Follow-up/Referrals: [facility] [Primary Care Provider, Medical] Time of Disposition: 10:21
== END 2025-03-28 10:17 | disposition home or self-care (01) ==
PROVIDERS: Emergency Provider Nurse Practitioner Family
DX: Z48.02 Encounter for removal of sutures (principal)
CPT/HCPCS: 99211; G0463